=== PATIENT | female | born 1955 | race Caucasian/White ===

== ENCOUNTER → 2019-02-27 | Outpatient (REF) | payer MEDICAID ==
[2019-02-27 19:09] LABS: HEMATOCRIT 38.4 % (36.0-47.0); HEMOGLOBIN 12.5 g/dl (12.0-15.5); MEAN CORPUSCULAR HEMOGLOBIN 32.7 pg (27.0-33.0); MEAN CORPUSCULAR HGB CONC 32.6 g/dl (32.0-36.5); MEAN CORPUSCULAR VOLUME 100.5 fl (80.0-96.0); RED BLOOD COUNT 3.82 10^6/uL (4.00-5.40); WHITE BLOOD COUNT 4.6 10^3/uL (4.0-10.0)
[2019-02-27 19:21] LABS: ALBUMIN 3.4 GM/DL (3.2-5.2); ALT/SGPT 18 U/L (12-78); BILIRUBIN,TOTAL 0.7 MG/DL (0.2-1.0); BLOOD UREA NITROGEN 20 MG/DL (7-18); CALCIUM LEVEL 9.1 MG/DL (8.8-10.2); CARBON DIOXIDE LEVEL 23 MEQ/L (21-32); CHLORIDE LEVEL 112 MEQ/L (98-107); CREATININE FOR GFR 0.71 MG/DL (0.55-1.30); FREE T4 1.19 NG/DL (0.76-1.46); GLOMERULAR FILTRATION RATE > 60.0 (>45); GLUCOSE, FASTING 78 MG/DL (70-100); POTASSIUM SERUM 3.9 MEQ/L (3.5-5.1); SODIUM LEVEL 142 MEQ/L (136-145); TOTAL PROTEIN 6.6 GM/DL (6.4-8.2)
[2019-02-27 19:48] LABS: PLATELET COUNT, AUTOMATED 77 10^3/uL (150-450)
== END ==
LOC: M SFHCPLAZ 13:59
PROVIDERS: ATTEND Nurse Practitioner Family
DX: E03.9 Hypothyroidism, unspecified (principal); I50.9 Heart failure, unspecified; K29.51 Unspecified chronic gastritis with bleeding

== ENCOUNTER → 2019-03-07 | Outpatient (REF) | payer MEDICAID ==
[2019-03-07 16:00] LABS: HEMATOCRIT 36.2 % (36.0-47.0)
== END ==
LOC: M SFHCPLAZ 13:40
PROVIDERS: ATTEND Family Medicine
DX: D75.89 Other specified diseases of blood and blood-forming organs (principal)

== ENCOUNTER → 2019-04-05 | Outpatient (REF) | payer OTHER ==
[2019-04-05 18:21] LABS: APPEARANCE, URINE HAZY (CLEAR); BACTERIA, URINE AUTO NEGATIVE (NEGATIVE); BILIRUBIN, URINE AUTO NEGATIVE (NEGATIVE); BLOOD, URINE BLOOD NEGATIVE (NEGATIVE); COLOR, URINE YELLOW (YELLOW); GLUCOSE, URINE (UA) AUTO NEGATIVE (NEGATIVE); KETONE, URINE AUTO NEGATIVE (NEGATIVE); LEUKOCYTE ESTERASE, URINE AUTO 2+ (NEGATIVE); MUCUS, URINE SMALL (NEGATIVE); NITRITE, URINE AUTO NEGATIVE (NEGATIVE); PROTEIN, URINE AUTO NEGATIVE (NEGATIVE); RBC, URINE AUTO 1 /HPF (0-3); SPECIFIC GRAVITY URINE AUTO 1.019 (1.002-1.035); SQUAMOUS EPITHELIAL CELL UR AU 1 /HPF (0-6); UROBILINOGEN, URINE AUTO 0.2 mg/dL (0.0-2.0); WBC, URINE AUTO 12 /HPF (0-3)
== END ==
LOC: M SFHCPLAZ 14:26
PROVIDERS: ATTEND Nurse Practitioner Family
DX: N39.46 Mixed incontinence (principal)

== ENCOUNTER → 2019-07-18 | Outpatient (REF) | payer OTHER ==
[2019-07-18 18:42] LABS: ALBUMIN 3.1 GM/DL (3.2-5.2); ALT/SGPT 17 U/L (12-78); BILIRUBIN,TOTAL 0.5 MG/DL (0.2-1.0); BLOOD UREA NITROGEN 15 MG/DL (7-18); CALCIUM LEVEL 9.1 MG/DL (8.8-10.2); CARBON DIOXIDE LEVEL 25 MEQ/L (21-32); CHLORIDE LEVEL 114 MEQ/L (98-107); CREATININE FOR GFR 0.75 MG/DL (0.55-1.30); GLOMERULAR FILTRATION RATE > 60.0 (>45); GLUCOSE, FASTING 96 MG/DL (70-100); POTASSIUM SERUM 3.9 MEQ/L (3.5-5.1); SODIUM LEVEL 145 MEQ/L (136-145); TOTAL PROTEIN 6.2 GM/DL (6.4-8.2)
[2019-07-18 18:54] LABS: FOLATE 9.3 NG/ML; VITAMIN B12 LEVEL 246 PG/ML
== END ==
LOC: M SFHCPLAZ 16:09
PROVIDERS: ATTEND Nurse Practitioner Family
DX: D75.89 Other specified diseases of blood and blood-forming organs (principal); I50.9 Heart failure, unspecified; E03.9 Hypothyroidism, unspecified

== ENCOUNTER → 2019-08-01 | Outpatient (CLI) | payer OTHER ==
[~2019-08-01] MED LIST: CALCTAB89 PO; CVS400CA PO; CYAN100049 PO; CYCL10TA PO; GABA800T4 PO; LEVO88TA3 PO; PANT40TA3 PO; POTA20TA6 PO; SPIR-10 PO; TORS20TA2 PO; TRAZ1TAB14 PO; VENL75CA47 PO
[2019-08-01 14:57] LABS: MAGNESIUM LEVEL 2.1 MG/DL (1.8-2.4)
== END ==
LOC: M LAB 13:47
PROVIDERS: ATTEND Internal Medicine Cardiovascular Disease
DX: I50.9 Heart failure, unspecified (principal)

== ENCOUNTER → 2019-08-01 | Outpatient (CLI) | payer OTHER ==
[2019-08-01 14:33] LABS: HEMATOCRIT 32.9 % (36.0-47.0); HEMOGLOBIN 9.2 g/dl (12.0-15.5); MEAN CORPUSCULAR HEMOGLOBIN 25.3 pg (27.0-33.0); MEAN CORPUSCULAR VOLUME 90.4 fl (80.0-96.0); RED BLOOD COUNT 3.64 10^6/uL (4.00-5.40); WHITE BLOOD COUNT 3.4 10^3/uL (4.0-10.0)
[2019-08-01 14:35] LABS: PLATELET COUNT, AUTOMATED 75 10^3/uL (150-450)
== END ==
LOC: M LAB 13:43
PROVIDERS: ATTEND Nurse Practitioner Family
DX: I50.9 Heart failure, unspecified (principal); E03.9 Hypothyroidism, unspecified; D75.89 Other specified diseases of blood and blood-forming organs

== ENCOUNTER 2019-08-03 16:33 | Emergency (ER) | payer OTHER ==
[~2019-08-03] VITALS: Ht 162.6 cm; Wt 147.7 kg
[2019-08-03] MEDS ORDERED: GABA800T4 PO (16:55)
[2019-08-03] MEDS ORDERED: PANT40TA3 PO (16:55)
[2019-08-03] MEDS ORDERED: CYCL10TA PO (16:55)
[2019-08-03] MEDS ORDERED: TORS20TA2 PO (16:55)
[2019-08-03] MEDS ORDERED: CVS400CA PO (16:55)
[2019-08-03] MEDS ORDERED: LEVO88TA3 PO (16:55)
[2019-08-03] MEDS ORDERED: VENL75CA47 PO (16:55)
[2019-08-03] MEDS ORDERED: POTA20TA6 PO (16:55)
[2019-08-03] MEDS ORDERED: CYAN100049 PO (16:55)
[2019-08-03] MEDS ORDERED: SPIR-10 PO (16:55)
[2019-08-03] MEDS ORDERED: TRAZ1TAB14 PO (16:55)
[2019-08-03] MEDS ORDERED: CALCTAB89 PO (16:55)
[2019-08-03 17:27] LABS: EOS # 0.1 10^3/uL (0.0-0.5); EOS % 2.2 % (0.0-3.0); HEMATOCRIT 31.1 % (36.0-47.0); HEMOGLOBIN 8.6 g/dl (12.0-15.5); LYMPH # 0.5 10^3/uL (1.5-5.0); LYMPH % 20.5 % (24.0-44.0); MEAN CORPUSCULAR HEMOGLOBIN 24.9 pg (27.0-33.0); MEAN CORPUSCULAR HGB CONC 27.7 g/dl (32.0-36.5); MEAN CORPUSCULAR VOLUME 89.9 fl (80.0-96.0); MONO # 0.2 10^3/uL (0.0-0.8); MONO % 7.9 % (0.0-5.0); NEUTROPHILS # 1.6 10^3/uL (1.5-8.5); NEUTROPHILS % 69.4 % (36.0-66.0); RED BLOOD COUNT 3.46 10^6/uL (4.00-5.40); WHITE BLOOD COUNT 2.3 10^3/uL (4.0-10.0)
[2019-08-03 17:45] LABS: ALBUMIN 3.2 GM/DL (3.2-5.2); ALT/SGPT 19 U/L (12-78); BILIRUBIN,TOTAL 0.6 MG/DL (0.2-1.0); BLOOD UREA NITROGEN 19 MG/DL (7-18); CALCIUM LEVEL 9.5 MG/DL (8.8-10.2); CARBON DIOXIDE LEVEL 27 MEQ/L (21-32); CHLORIDE LEVEL 111 MEQ/L (98-107); CREATININE FOR GFR 0.79 MG/DL (0.55-1.30); GLOMERULAR FILTRATION RATE > 60.0 (>45); GLUCOSE, FASTING 90 MG/DL (70-100); POTASSIUM SERUM 4.3 MEQ/L (3.5-5.1); SODIUM LEVEL 142 MEQ/L (136-145); TOTAL PROTEIN 6.3 GM/DL (6.4-8.2)
[2019-08-03 17:48] LABS: PLATELET COUNT, AUTOMATED 53 10^3/uL (150-450)
[2019-08-03 18:52] LABS: IRON (FE) 48 UG/DL (50-170); PERCENT SATURATION 12.1 % (13.2-45.0); TOTAL IRON BINDING CAPACITY 396 UG/DL (250-450)
[2019-08-03 19:48] VITALS: BP 116/60
== END 2019-08-03 21:41 | disposition home or self-care (01) ==
LOC: M ED 16:33 → EDBD 16:33 → M ED 21:41
DX: D50.9 Iron deficiency anemia, unspecified (principal); M62.81 Muscle weakness (generalized); Z79.899 Other long term (current) drug therapy; Z86.79 Personal history of other diseases of the circulatory system; Z88.1 Allergy status to other antibiotic agents; Z88.5 Allergy status to narcotic agent; Z88.6 Allergy status to analgesic agent; Z88.8 Allergy status to other drugs, medicaments and biological substances

== ENCOUNTER → 2019-08-17 | Outpatient (CLI) | payer OTHER ==
--- NOTE | 2019-08-17 09:12 | REP ---
RIGHT UPPER QUADRANT ULTRASOUND: Real-time sonographic evaluation of the right upper quadrant performed. Gallbladder has been surgically removed. There is no intrahepatic or extrahepatic biliary dilatation. Common bile duct measures 3 mm. The liver demonstrates heterogeneous echotexture. No gross liver mass is seen. Mean portal vein measures 15 mm, which is slightly prominent and may indicate portal hypertension. No gross pancreatic mass is seen, pancreas is not optimally seen due to overlying bowel gas. Right kidney demonstrates no hydronephrosis with normal size 10.4 cm in length. No ascites is seen. IMPRESSION: Status post cholecystectomy without biliary dilatation. Heterogenous echotexture of the liver with no gross mass. Mildly dilated main portal vein 15 mm may indicate portal hypertension. No ascites. Electronically Signed by Alejandro Coleman MD 08/17/2019 03:50 P
== END ==
LOC: M RAD 07:15
PROVIDERS: ATTEND Internal Medicine Gastroenterology
DX: K31.811 Angiodysplasia of stomach and duodenum with bleeding (principal); Z90.49 Acquired absence of other specified parts of digestive tract

== ENCOUNTER → 2019-08-23 | Outpatient (CLI) | payer OTHER ==
[~2019-08-23] MED LIST changes: +DOXY100C PO; +EQL50TAB2 PO; +GABA-845 PO; +IPRA0.00 INH; +LOPE1CAP5 PO; +PRED20TA PO; +SIME125C4 PO; +VENL75CA2 PO; +VENL75TA2 PO
--- NOTE | 2019-08-23 15:31 | REPPI ---
Chest x-ray: Two views. History: Upper respiratory tract infection. Cough. Congestion. No comparison study. Findings: There is an infiltrate anteriorly in the retrosternal facet space on lateral view. Increased markings are seen to the right perihilar region on the frontal view consistent with right middle lobe or upper lobe pneumonia. Pleural angles are sharp. The heart is not enlarged. Aorta is tortuous. Impression: Increased density on the right anteriorly consistent with the anterior segment upper lobe or right middle lobe pneumonia. Electronically Signed by Prosper Mo MD 08/23/2019 03:23 P
== END ==
LOC: M PLAIMG 14:40
PROVIDERS: ATTEND Nurse Practitioner Family
DX: R91.8 Other nonspecific abnormal finding of lung field (principal); J06.9 Acute upper respiratory infection, unspecified

== ENCOUNTER 2019-08-25 15:51 | Inpatient (IN) | payer OTHER ==
[~2019-08-25] VITALS: Ht 162.6 cm; Wt 149.2 kg
[~2019-08-25 15:51] MED LIST changes: -DOXY100C PO; -IPRA0.00 INH; -LOPE1CAP5 PO; -PRED20TA PO; -SIME125C4 PO; -VENL75CA2 PO
[2019-08-25] MEDS ORDERED: IPRA0.00 INH (16:16)
[2019-08-25] MEDS ORDERED: DOXY100C PO (16:16)
[2019-08-25] MEDS ORDERED: PRED20TA PO (16:16)
[2019-08-25] MEDS ORDERED: IPRATROPIUM 0.5MG/ALBUTEROL 2.5MG INH SOL UD 3ML (DUONEB)(J7620) As Ordered ONE (17:07)
[2019-08-25] MEDS ORDERED: ALBUTEROL SULFATE 2.5 MG/0.5 ML INH NEB SOLN As Ordered ONE (17:08)
[2019-08-25] MEDS ORDERED: IPRATROPIUM 0.5MG/ALBUTEROL 2.5MG INH SOL UD 3ML (DUONEB)(J7620) NEB ONE (17:15)
[2019-08-25] MEDS ORDERED: ALBUTEROL SULFATE 2.5 MG/0.5 ML INH NEB SOLN INH ONE (17:15)
[2019-08-25] MEDS ORDERED: dexameTHASONE 20 MG/5 ML VIAL (J1100) IV ONE (17:15)
[2019-08-25] MEDS ORDERED: ACETAMINOPHEN TAB 650MG DOSE (2X325MG) PO ONE (17:30)
[2019-08-25 17:42] LABS: BASO % 0.3 % (0.0-1.0); EOS % 0.5 % (0.0-3.0); HEMATOCRIT 25.1 % (36.0-47.0); HEMOGLOBIN 7.1 g/dl (12.0-15.5); LYMPH # 0.7 10^3/uL (1.5-5.0); LYMPH % 18.7 % (24.0-44.0); MEAN CORPUSCULAR HEMOGLOBIN 24.1 pg (27.0-33.0); MEAN CORPUSCULAR HGB CONC 28.3 g/dl (32.0-36.5); MEAN CORPUSCULAR VOLUME 85.4 fl (80.0-96.0); MONO # 0.4 10^3/uL (0.0-0.8); MONO % 9.3 % (0.0-5.0); NEUTROPHILS # 2.7 10^3/uL (1.5-8.5); NEUTROPHILS % 70.9 % (36.0-66.0); RED BLOOD COUNT 2.94 10^6/uL (4.00-5.40); WHITE BLOOD COUNT 3.8 10^3/uL (4.0-10.0)
[2019-08-25 17:43] LABS: PLATELET COUNT, AUTOMATED 49 10^3/uL (150-450)
[2019-08-25 18:02] LABS: BLOOD UREA NITROGEN 17 MG/DL (7-18); CALCIUM LEVEL 8.2 MG/DL (8.8-10.2); CARBON DIOXIDE LEVEL 27 MEQ/L (21-32); CHLORIDE LEVEL 107 MEQ/L (98-107); CK-MB VALUE MASS 1.2 NG/ML (<3.6); CPK CREATINE PHOSPHOKINASE 68 U/L (26-192); CREATININE FOR GFR 0.76 MG/DL (0.55-1.30); GLOMERULAR FILTRATION RATE > 60.0 (>45); GLUCOSE, FASTING 80 MG/DL (70-100); INFLUENZA A AMPLIFICATION NEGATIVE (NEGATIVE); INFLUENZA B AMPLIFICATION NEGATIVE (NEGATIVE); MB/CK RELATIVE INDEX 1.76 (< OR =4); POTASSIUM SERUM 3.2 MEQ/L (3.5-5.1); SODIUM LEVEL 142 MEQ/L (136-145)
[2019-08-25 18:03] LABS: TROPONIN I < 0.02 NG/ML (< 0.10)
[2019-08-25] MEDS ORDERED: cefTRIAXone SOD 2 GM in D5W MINI-BAG PLUS 50 ML IV ONE (19:30)
[2019-08-25] MEDS ORDERED: AZITHROMYCIN INJ 500 MG, VIAL MATE ADAPTER 1 EACH in D5W 250 ML IV ONE (19:30)
--- NOTE | 2019-08-25 19:36 | REP ---
Portable chest x-ray: Single view. History: Pneumonia. Comparison chest x-ray: 08/23/2019. Findings: Today's view is exposed at a somewhat lesser level of inspiration. There are increased markings along the right heart border in the right base medially consistent with the infiltrate noted previously. This is a little more pronounced. There are some increased markings in the left perihilar region as well. Impression: Right and left perihilar infiltrates. Electronically Signed by Prosper Mo MD 08/25/2019 07:28 P
[2019-08-25] MEDS ORDERED: VENL75CA2 PO (20:12)
[2019-08-25] MEDS ORDERED: SIME125C4 PO (20:12)
[2019-08-25] MEDS ORDERED: LOPE1CAP5 PO (20:12)
[2019-08-25] MEDS ORDERED: POTASSIUM CHLORIDE 10 MEQ SR TABLET PO ONE (20:15)
[2019-08-25] MEDS ORDERED: CALCIUM CARBONATE 500 MG CHEW U/D PO PRN (20:30)
[2019-08-25] MEDS ORDERED: ALBUTEROL SULFATE 2.5 MG/0.5 ML INH NEB SOLN NEB PRN (20:30)
[2019-08-25] MEDS ORDERED: LOPERAMIDE 2 MG CAPLET PO PRN (20:30)
[2019-08-25 20:59] LABS: FERRITIN 11 NG/ML (8-252); IRON (FE) 26 UG/DL (50-170); MAGNESIUM LEVEL 1.5 MG/DL (1.8-2.4); PERCENT SATURATION 7.8 % (13.2-45.0); TOTAL IRON BINDING CAPACITY 332 UG/DL (250-450)
[2019-08-25 22:20] VITALS: BP 171/89
--- NOTE | 2019-08-25 22:56 | HPEPDOC ---
[facility] Medical History & Physical Date of Admission Aug 25, 2019 Date of Service: Aug 25, 2019 Primary Care Physician: DEON QUIROZ NP Attending Physician: RACHELE KHAN MD History and Physical TIME OF SERVICE: 7:45 PM CHIEF COMPLAINT: fever HISTORY OF PRESENT ILLNESS: This is a 64-year-old female who presents today with the chief complaint of having a fever. On she presented to her PCP with complaints of cough, was given a nebulizer treatment and started on antibiotics; later on she received a phone call from her PCP informing her that her chest x-ray confirmed she had pneumonia. Despite taking the antibiotics, she feels like her cough is worse; specifically she is producing more yellow sputum. She also has a headache, muscle aches, nausea, chills, shortness of breath, and right upper chest and left lower chest 7/10 in severity, nonradiating pain. REVIEW OF SYSTEMS: 12 point review of systems negative except as listed in HPI PAST MEDICAL/ SURGICAL HISTORY: Alpha-1 antitrypsin deficiency LISA Unspecified type of CHF ? Pancytopenia Neuropathy History of recurrent GI bleed attributed to rectal fissures, prepyloric erosion, hiatial hernia, antral gastritis, antral ulcers, distal esophagitis, AVMs, and gastric antral vascular ectasia (GAVE) GERD Irritable bowel syndrome Optic migraines Dyslipidemia Chronic Depression History of vitamin B12 deficiency History of seizures started in 1975, resolved in 1982 History of DVT 2, status post IVC filter placement in 1999 Remote history of CVA with transient left-sided weakness Morbid obesity Per chart review, history of acquired hypothyroidism Unsteady gait at baseline she walks with a walker Status post tonsillectomy with adenoidectomy Status post appendectomy Status post 2 Status post tubal ligation Status post sport for a laparoscopy due to pelvic pain and heavy bleeding Status post partial hysterectomy. Status post left ovarian cystectomy 2 Status post cholecystectomy Status post hemorrhoidectomy History of left lower abdominal incarcerated hernia repair Status post colostomy replacement and reversal 2 years later History of rectal fissurectomy with double skin graft History of ventral mid and upper abdominal hernias, status post mesh placement SOCIAL HISTORY: She does not smoke FAMILY HISTORY: Father had breast cancer Mother had Ariana Gehrig's disease. One of her brothers had esophageal and stomach cancer ALLERGIES: Please see below. HOME MEDICATIONS: Please see below. PHYSICAL EXAMINATION: VITAL SIGNS: Please see below. GEN: well nourished / well developed/ NAD INTEGUMENT: She does not have facial plethora HEENT: normocephalic / atraumatic / lips are not cyanotic/he does not have pursed lip breathing /her neck is short/ NC in place / mucus membranes moist and pink / sclera anicteric CVS: She has a systolic murmur/ radial and dorsalis pedis pulses are difficult to palpate because of her body habitus, but her extremities are warm and well-perfused LUNGS: She does not have nasal flaring /is able to speak full sentences without stopping to take a breath / coughing occasionally /he is not using accessory muscles /there is slightly decreased respiratory expansion possibly because of her body habitus/she has expiratory rhonchi along with inspiratory crackles at the lung bases/ ABDOMEN: bowel sounds are present / the abdomen is tympanic on percussion, soft & not tender with palpation MSK/EXTREMITIES:He does not have finger nail clubbing or nicotine stains on her fingertips or nails/range of motion intact in all 4 extremities NEURO: CN 2-12 are grossly intact / speech is not dysarthric PSYCH: alert and oriented to person place and time/ able to understand and follow all commands LABORATORY DATA: See below. IMAGING: Chest x-ray " There are increased markings along the right heart border in the right base medially consistent with the infiltrate noted previously. This is a little more pronounced. There are some increased markings in the left perihilar region as well." MICROBIOLOGY: Please see below. ASSESSMENT: Ms. Saucedo is a 64-year-old with a past medical history of alpha-1 antitrypsin deficiency, LISA, unspecified type of CHF, pancytopenia, neuropathy, multiple episodes of GI bleeds, optic migraines, dyslipidemia, depression, hx of CVA, and hx of DVTs who will be admitted for management of community-acquired pneumonia and acute anemia. PLAN: 1. Hypoxemic respiratory failure 2/2 Community-acquired Pneumonia She has a cough, fever and shortness of breath. The left and right-sided chest pain or likely due to pneumonia Her O2 sats dropped as low as 87% on room air, therefore, she was started on 2 L by nasal cannula The chest x-ray shows an old infiltrate at the right and a new infiltrate at the left lung base Plan: admit to PCU/ continuous pulse ox & supplemental O2/ follow-up ABG to check for hypercarbia & calculate the PORT/PSI score / f/u sputum & blood cx, legionella and strep pneumo /continue ceftriaxone and azithromycin/ IVF / tessalon pearls / Acetaminophen PRN for fever / influenza vaccine 2. Acute COPD/alpha-1 antitrypsin deficiency Likely due to pneumonia Influenza A and B are negative Plan: supplemental O2 / continuous pulse oximetry / aspiration precautions / f/u ABG &sputum cx / Dunebs Q6H, Albuterol Q1HP, Solu-Medrol, Prednisone + PPI, antibiotics , Tessalon Pearls / refer to Nuclear Scientist for repeat PFTs and Pulmonary Rehab when ready for d/c 3. Acute anemia She has a history of pancytopenia. She also has a history of recurrent GI bleed attributed to rectal fissures, prepyloric erosion, hiatal hernia, antral gastritis, antral ulcers, distal esophagitis, AVMs, and gastric antral vascular ectasia (GAVE) Her baseline hemoglobin is 8.6 , today it is 7.1 She declined a rectal exam in the ER PRBCs have ready been ordered by Dr. Vasquez Plan: f/u serial hemoglobin, reticulocyte #, iron panel w ferritin, B12, RBC folate, thiamine, stool occult / clear liquid diet pending GI consult for c- scope 4. SIRS Unlikely sepsis due to pneumonia because the only SIRS criteria she has is a temp >101. Even though her WBC count is <4, she has chronic leukopenia/pancytopenia and the the lactic acid is < 1 Plan: Monitor vitals/ f/u blood cultures / Acetaminophen PRN for fever 5. Hypokalemia Plan:replete potassium/ f/u magnesium 4. Unspecified type of CHF? Suspect that she may have diastolic dysfunction. Echocardiogram from 1998 showed hyperdynamic systolic function and elevated pulmonary pressure. Her H2PEF Score = 5 = intermediate probability: Her most recent BMP in July was 49 and she does have lung disease. Therefore, she can follow up with a electric sign assembler to discuss right heart cath to determine if she definitively has heart failure; this can be done on an outpatient basis. Plan: Continue with's spironolactone and torsemide 5. Neuropathy. Plan: Continue gabapentin 6. Hypothyroidism. Plan: Continue levothyroxine 7. Depression. Plan: Continue trazodone and venlafaxine 8. Morbid obesity Her BMI is 55.9. This complicates care Plan: Follow-up A1c/ can f/u w PCP for STOP BANG questionnaire & tow motor driver consult DVT prophylaxis with SCDs because of acute anemia. Disposition home after more than 2 midnight stay Vital Signs Vital Signs Date Time Temp Pulse Resp B/P (MAP) Pulse Ox O2 Delivery O2 Flow Rate FiO2 08/25/19 22:07 96.8 82 20 123/75 (91) 94 Nasal Cannula 2.0 Laboratory Data Labs 24H Laboratory Tests 2 08/25/19 17:13: Immature Granulocyte % (Auto) 0.3, Neutrophils (%) (Auto) 70.9H, Lymphocytes (%) (Auto) 18.7L, Monocytes (%) (Auto) 9.3H, Eosinophils (%) (Auto) 0.5, Basophils (%) (Auto) 0.3, Neutrophils # (Auto) 2.7, Lymphocytes # (Auto) 0.7L, Monocytes # (Auto) 0.4, Eosinophils # (Auto) 0.0, Basophils # (Auto) 0.0, Nucleated Red Blood Cells % (auto) 0.0, Immature Platelet Fraction 5.1, Anion Gap 8, Glomerular Filtration Rate > 60.0, Calcium Level 8.2L, Magnesium Level 1.5L, Iron Level 26L, Total Iron Binding Capacity 332, Transferrin % Saturation 7.8L, Ferritin 11, Total Creatine Kinase 68, Creatine Kinase MB 1.2, Creatine Kinase MB Relative Index 1.76, Troponin I < 0.02, Influenza Type A (RT-PCR) NEGATIVE, Influenza Type B (RT-PCR) NEGATIVE 08/25/19 17:15: 08/25/19 20:28: Lactic Acid Level 1.0 CBC/BMP Laboratory Tests 08/25/19 17:13 Microbiology Microbiology 08/25/19 Gram Stain, Received Pending 08/25/19 Sputum Culture, Received Pending 08/25/19 Blood Culture, Received Pending 08/25/19 Blood Culture, Received Pending Home Medications Scheduled Calcium Carbonate (Calcium) 600 Mg Tablet, 600 MG PO QHS Cholecalciferol (Vitamin D3) (Vitamin D3) 400 Unit Capsule, 400 UNIT PO QHS Cyanocobalamin (Vitamin B-12) (Vitamin B-12) 1,000 Mcg Tablet, 1,000 MCG PO QHS Doxycycline Hyclate (Doxycycline Hyclate) 100 Mg Capsule, 100 MG PO BID 10 DAYS STARTED ON 08/23 Gabapentin (Gabapentin) 800 Mg Tablet, 800 MG PO BID Gabapentin (Gabapentin) 400 Mg Capsule, 400 MG PO DAILY AFTERNOON Levothyroxine Sodium (Levothyroxine Sodium) 88 Mcg Tablet, 88 MCG PO DAILY Pantoprazole Sodium (Pantoprazole Sodium) 40 Mg Tablet.dr, 40 MG PO BID Potassium Chloride (Potassium Chloride) 20 Meq Tab.er.prt, 20 MEQ PO QHS Prednisone (Prednisone) 20 Mg Tablet, 20 MG PO BID 5 DAYS STARTED 08/23 Spironolactone (Spironolactone) 25 Mg Tablet, 25 MG PO QHS Torsemide (Torsemide) 20 Mg Tablet, 20 MG PO BID 0900, 1500 Trazodone HCl (Trazodone HCl) 150 Mg Tablet, 150 MG PO QHS Venlafaxine HCl (Venlafaxine HCl ER) 75 Mg Cap.er.24h, 75 MG PO DAILY Venlafaxine HCl (Venlafaxine HCl ER) 75 Mg Cap.er.24h, 150 MG PO QHS Vitamin B Complex (Vitamin B Complex) 1 Each Tablet, 1 TAB PO DAILY Scheduled PRN Cyclobenzaprine HCl (Cyclobenzaprine HCl) 10 Mg Tablet, 10 MG PO TID PRN for MUSCLE SPASMS Ipratropium/Albuterol Sulfate (Iprat-Albut 0.5-3(2.5) mg/3 ml) 3 Ml Ampul.neb, 1 INH INH Q6H PRN for SHORTNESS OF BREATH Loperamide HCl (Loperamide) 2 Mg Capsule, 2 MG PO Q6H PRN for DIARRHEA Simethicone (Gas-X) 125 Mg Capsule, 125 MG PO ACHS PRN for GAS PAIN Allergies Coded Allergies: hydromorphone (Verified Allergy, Mild, itching, 08/24/19) codeine (Verified Adverse Reaction, Intermediate, CHESP PAIN, 08/03/19) ibuprofen (Verified Adverse Reaction, Intermediate, JOINT/ MUSCLE PAIN, 08/03/19) pregabalin (Verified Adverse Reaction, Intermediate, chest pain, 08/03/19) amoxicillin (Verified Adverse Reaction, Mild, vomiting and diarrhea, 08/03/19) clavulanic acid (Verified Adverse Reaction, Mild, vomiting and diarrhea, 08/03/19) erythromycin base (Verified Adverse Reaction, Mild, vomting diarrhea, 08/03/19) A-FIB/CHADSVASC A-FIB History Current/History of A-Fib/PAF?: No Current PO Anticoag Therapy: No RACHELE KHAN MD Aug 25, 2019 22:56
[2019-08-25 23:00] VITALS: BP 124/68
[2019-08-25 23:00] LABS: ABG BASE EXCESS -1.6 (-2.0-2.0); ABG HCO3 21.9 MEQ/L (22.0-26.0); ABG O2 SATURATION 95.7 % (95.0-99.0); ABG PARTIAL PRESSURE CO2 31.9 mmHg (35.0-45.0); ABG PARTIAL PRESSURE O2 80.6 mmHg (75.0-100.0); ABG STANDARD HCO3 23.1 MEQ/L (22.0-26.0); ABG TOTAL CO2 22.9 MEQ/L (23.0-31.0); ABG pH (ARTERIAL) 7.455 UNITS (7.350-7.450)
[2019-08-25] MEDS: SPIRONOLACTONE 25 MG TAB PO SCH (23:00)
[2019-08-25] MEDS: methylPREDNISolone INJ 125 MG/2 ML VIAL (J2930) IV SCH (23:00)
[2019-08-25] MEDS: traZODone 50 MG TAB PO SCH (23:00)
[2019-08-25] MEDS: VITAMIN D 1,000 INTERNATIONAL UNITS TABLET PO SCH (23:01)
[2019-08-25] MEDS: GABAPENTIN 400 MG CAP PO SCH (23:02)
[2019-08-25] MEDS: CYANOCOBALAMIN 500 MCG TAB PO SCH (23:02)
[2019-08-25] MEDS: VENLAFAXINE **XR** 75MG CAPSULE PO SCH (23:02)
[2019-08-25] MEDS: NS 1,000 ML IV SCH (23:11)
[2019-08-25] MEDS: BENZONATATE 100 MG CAP PO SCH (23:12)
[2019-08-25 23:59] VITALS: BP 136/78
[2019-08-26] VITALS (29 sets, daily range): BP systolic 128–182; BP diastolic 64–86; O2SAT 84–98
[2019-08-26] MEDS: IPRATROPIUM 0.5MG/ALBUTEROL 2.5MG INH SOL UD 3ML (DUONEB)(J7620) NEB SCH ×4 (02:18→20:22)
[2019-08-26] MEDS: LEVOTHYROXINE 88MCG TABLET (0.088 MG) PO SCH (05:45)
[2019-08-26] MEDS: methylPREDNISolone INJ 125 MG/2 ML VIAL (J2930) IV SCH ×3 (05:45→21:04)
[2019-08-26] MEDS: BENZONATATE 100 MG CAP PO SCH ×3 (05:45→21:05)
[2019-08-26 06:25] LABS: HEMOGLOBIN 8.6 g/dl (12.0-15.5)
[2019-08-26 06:48] LABS: HEMATOCRIT 30.4 % (36.0-47.0); MEAN CORPUSCULAR HEMOGLOBIN 24.5 pg (27.0-33.0); MEAN CORPUSCULAR HGB CONC 27.6 g/dl (32.0-36.5); MEAN CORPUSCULAR VOLUME 88.6 fl (80.0-96.0); RED BLOOD COUNT 3.43 10^6/uL (4.00-5.40)
[2019-08-26 06:49] LABS: PLATELET COUNT, AUTOMATED 43 10^3/uL (150-450); WHITE BLOOD COUNT 1.8 10^3/uL (4.0-10.0)
[2019-08-26 06:51] LABS: BLOOD UREA NITROGEN 16 MG/DL (7-18); CALCIUM LEVEL 8.5 MG/DL (8.8-10.2); CARBON DIOXIDE LEVEL 28 MEQ/L (21-32); CHLORIDE LEVEL 111 MEQ/L (98-107); CREATININE FOR GFR 0.72 MG/DL (0.55-1.30); GLOMERULAR FILTRATION RATE > 60.0 (>45); GLUCOSE, FASTING 135 MG/DL (70-100); POTASSIUM SERUM 4.2 MEQ/L (3.5-5.1); SODIUM LEVEL 144 MEQ/L (136-145)
[2019-08-26] MEDS: VITAMIN B COMPLEX/VIT C CAP PO SCH ×2 (08:56→09:06)
[2019-08-26] MEDS: GABAPENTIN 400 MG CAP PO SCH ×3 (08:57→21:05)
[2019-08-26] MEDS: PANTOPRAZOLE 40MG TAB (PROTONIX) PO SCH (08:57)
[2019-08-26] MEDS: VENLAFAXINE **XR** 75MG CAPSULE PO SCH ×2 (08:57→21:05)
[2019-08-26] MEDS: TORSEMIDE 20 MG TAB PO SCH ×2 (08:57→13:52)
[2019-08-26] MEDS ORDERED: predniSONE 20 MG TAB PO SCH (09:00)
[2019-08-26] MEDS ORDERED: FLUBLOK(EGG FREE)(QUAD)INFLUENZA VACC 0.5ML SYRINGE (90682)18YRS&OLDER IM ONE (09:00)
[2019-08-26] MEDS: CYCLOBENZAPRINE 10 MG TAB PO PRN ×2 (09:07→21:30)
[2019-08-26 13:28] LABS: HEMATOCRIT 29.3 % (36.0-47.0); HEMOGLOBIN 8.3 g/dl (12.0-15.5); MEAN CORPUSCULAR HEMOGLOBIN 24.8 pg (27.0-33.0); MEAN CORPUSCULAR HGB CONC 28.3 g/dl (32.0-36.5); MEAN CORPUSCULAR VOLUME 87.5 fl (80.0-96.0); PLATELET COUNT, AUTOMATED 43 10^3/uL (150-450); RED BLOOD COUNT 3.35 10^6/uL (4.00-5.40); WHITE BLOOD COUNT 1.9 10^3/uL (4.0-10.0)
[2019-08-26 13:37] LABS: INR 1.24; PROTHROMBIN TIME 15.3 SECONDS (11.8-14.0)
[2019-08-26] MEDS ORDERED: CETACAINE SPRAY 5GM As Ordered ONE (16:21)
[2019-08-26] MEDS ORDERED: SUCCINYLCHOLINE 100 MG/5 ML SYRINGE (J0330) As Ordered ONE (16:26)
[2019-08-26] MEDS ORDERED: LIDOCAINE 2% INJ 100 MG/5 ML SDV (FOR ANES.) As Ordered ONE (16:26)
[2019-08-26] MEDS ORDERED: PROPOFOL 200 MG/20 ML VIAL As Ordered ONE (16:26)
[2019-08-26] MEDS ORDERED: fentaNYL 100 MCG/2 ML INJECTION (J3010) As Ordered ONE (16:26)
--- NOTE | 2019-08-26 17:05 | ROOR ---
Patient Name: Tina Saucedo Procedure Date: 08/26/2019 4:01 PM Date of : 1955 Age: 64 Gender: Female Note Status: Finalized Procedure: Upper GI endoscopy Indications: Acute post hemorrhagic anemia, Iron deficiency anemia secondary to chronic blood loss Providers: Tavon CHAVEZ MD Referring MD: 2. Inpatient 2. Inpatient Requesting Provider: Medicines: Monitored Anesthesia Care Complications: No immediate complications. Procedure: Pre-Anesthesia Assessment: - The heart rate, respiratory rate, oxygen saturations, blood pressure, adequacy of pulmonary ventilation, and response to care were monitored throughout the procedure. The Endoscope was introduced through the mouth, and advanced to the second part of duodenum. The upper GI endoscopy was accomplished without difficulty. The patient tolerated the procedure well. Findings: The examined esophagus was normal. A few (approximately 7) diminutive angioectasias with stigmata of recent bleeding (adherent hematin) were found in the gastric body and in the gastric antrum. Coagulation for hemostasis using argon beam at 0.8 liters/minute and 35 garcia was successful. The examined duodenum was normal. Impression: - Normal esophagus. - A few recently bleeding angioectasias in the stomach. Treated with argon beam coagulation. - Normal examined duodenum. - No specimens collected. Recommendation: - Advance diet as tolerated. - Use a proton pump inhibitor PO daily. - Use sucralfate tablets 1 gram PO QID for 2 weeks. - Observe patient's clinical course. - Return to referring physician as previously scheduled. - For now, continue with plans for repeat EGD with ablation therapy as scheduled on 09/03/19. Tavon Chavez MD Tavon CHAVEZ MD 08/26/2019 5:04:33 PM Electronically signed by Tavon CHAVEZ MD Number of Addenda: 0 Note Initiated On: 08/26/2019 4:01 PM Estimated Blood Loss: Estimated blood loss: none.
[2019-08-26] MEDS ORDERED: fentaNYL 100 MCG/2 ML INJECTION (J3010) IV PRN (17:30)
[2019-08-26] MEDS ORDERED: ONDANSETRON 4MG/2ML VIAL (J2405) IV PRN (17:30)
--- NOTE | 2019-08-26 19:39 | ECGEPIP ---
[facility] - ED Test Date: 2019-08-25 Pat Name: ZAMZAM SCHMITZ Department: Room: [place] [address] Gender: Female Seamer Panty Hose: adeline : 1955 Requested By: Haven Valdes Order Number: [id number] Reading MD: Haven Valdes Measurements Intervals [place] Rate: 75 P: 70 KS: 178 QRS: 0 QRSD: 120 T: 3 QT: 409 QTc: 457 Interpretive Statements SINUS RHYTHM MODERATE INTRAVENTRICULAR CONDUCTION DELAY LEFTWARD AXIS NONSPECIFIC ST T WAVE CHANGES PROLONGED QTC DELAYED R WAVE PROGRESSION NO PRIOR ECG FOR COMPARISON Electronically Signed on 08-26-2019 19:39:07 EST by Haven Valdes
[2019-08-26] MEDS ORDERED: SUCRALFATE 1 GM TAB PO SCH (21:00)
[2019-08-26] MEDS: SPIRONOLACTONE 25 MG TAB PO SCH (21:04)
[2019-08-26] MEDS: AZITHROMYCIN INJ 500 MG, VIAL MATE ADAPTER 1 EACH in D5W 250 ML IV SCH (21:04)
[2019-08-26] MEDS: cefTRIAXone SOD 1 GM in D5W MINI-BAG PLUS 50 ML IV SCH (21:04)
[2019-08-26] MEDS: traZODone 50 MG TAB PO SCH (21:05)
[2019-08-26] MEDS: VITAMIN D 1,000 INTERNATIONAL UNITS TABLET PO SCH (21:05)
[2019-08-26] MEDS: CYANOCOBALAMIN 500 MCG TAB PO SCH (21:06)
[2019-08-27] VITALS (20 sets, daily range): BP systolic 138–152; BP diastolic 65–87; O2SAT 88–96
[2019-08-27] MEDS: IPRATROPIUM 0.5MG/ALBUTEROL 2.5MG INH SOL UD 3ML (DUONEB)(J7620) NEB SCH ×4 (01:53→19:53)
[2019-08-27] MEDS: methylPREDNISolone INJ 125 MG/2 ML VIAL (J2930) IV SCH ×3 (06:53→21:59)
[2019-08-27] MEDS: BENZONATATE 100 MG CAP PO SCH ×3 (06:54→21:59)
[2019-08-27] MEDS: LEVOTHYROXINE 88MCG TABLET (0.088 MG) PO SCH (06:54)
[2019-08-27] MEDS: GABAPENTIN 400 MG CAP PO SCH ×3 (09:22→20:15)
[2019-08-27] MEDS: VENLAFAXINE **XR** 75MG CAPSULE PO SCH ×2 (09:22→20:15)
[2019-08-27] MEDS: TORSEMIDE 20 MG TAB PO SCH ×2 (09:22→14:08)
[2019-08-27] MEDS: VITAMIN B COMPLEX/VIT C CAP PO SCH (09:22)
[2019-08-27] MEDS: PANTOPRAZOLE 40MG TAB (PROTONIX) PO SCH (09:22)
[2019-08-27] MEDS: SUCRALFATE 1 GM TAB PO SCH ×4 (09:22→20:14)
[2019-08-27] MEDS: CYCLOBENZAPRINE 10 MG TAB PO PRN (09:38)
[2019-08-27] MEDS: NS 1,000 ML IV SCH ×2 (10:07→15:33)
--- NOTE | 2019-08-27 18:12 | IPN ---
DATE: 08/26/2019 Patient says shortness of breath has improved, but still with a productive cough, decreased from yesterday. No chest pain, pressure, tightness, palpitations, lightheadedness. No fever or chills. No nausea, vomiting, diarrhea. Temperature 98.6, pulse 65, respiratory rate 20, blood pressure 128/75, 94% on two liters nasal cannula and 90% on room air. Generally, awake, alert, oriented times three. No use of respiratory accessory muscles. Able to speak in full sentences without conversational dyspnea. Lungs are diminished with crackles at the bases. Heart: S1, S2, sinus rhythm. Abdomen is soft, nontender, nondistended. Positive bowel sounds. Extremities: No cyanosis or clubbing. LABORATORY DATA: White count 1.8, hemoglobin 8.6, hematocrit 30, platelet count 43. Sodium 144, potassium 4.2, chloride 111, bicarbonate 28, BUN 16, creatinine 0.72, glucose of 135. ASSESSMENT AND PLAN: A 64-year-old with a history of alpha-1 antitrypsin, nonalcoholic steatohepatitis (LISA), congestive heart failure, pancytopenia, neuropathy, history of recurrent gastrointestinal (GI) bleed due to gastric antral vascular ectasia (GAVE) gastritis, AVMs, vascular ectasia, reflux, irritable bowel syndrome, seizures, deep vein thrombosis (DVT) times two with inferior vena cava (IVC) filter, morbid obesity, presents with a fever, felt to have community-acquired pneumonia, currently on ceftriaxone and azithromycin. IMPRESSION: 1. Community-acquired pneumonia. On IV ceftriaxone and azithromycin. Serial complete blood count (CBC) checks. Afebrile overnight. 2. Pancytopenia secondary to severe infection with pneumonia. 3. Chronic hypoxic respiratory failure, on supplemental oxygen. 4. Alpha-1 antitrypsin deficiency. Follows with Dr. Tillman as an outpatient status post history of recurrent infections and keep saturations greater than 88-92%. [facility]
[2019-08-27] MEDS: traZODone 50 MG TAB PO SCH (20:14)
[2019-08-27] MEDS: VITAMIN D 1,000 INTERNATIONAL UNITS TABLET PO SCH (20:15)
[2019-08-27] MEDS: CYANOCOBALAMIN 500 MCG TAB PO SCH (20:15)
[2019-08-27] MEDS: AZITHROMYCIN INJ 500 MG, VIAL MATE ADAPTER 1 EACH in D5W 250 ML IV SCH (20:19)
[2019-08-27] MEDS: SPIRONOLACTONE 25 MG TAB PO SCH (21:58)
[2019-08-27] MEDS: cefTRIAXone SOD 1 GM in D5W MINI-BAG PLUS 50 ML IV SCH (21:59)
[2019-08-28] MEDS: IPRATROPIUM 0.5MG/ALBUTEROL 2.5MG INH SOL UD 3ML (DUONEB)(J7620) NEB SCH ×4 (01:03→20:32)
[2019-08-28] MEDS: methylPREDNISolone INJ 125 MG/2 ML VIAL (J2930) IV SCH ×3 (05:26→23:15)
[2019-08-28] MEDS: LEVOTHYROXINE 88MCG TABLET (0.088 MG) PO SCH (05:26)
[2019-08-28] MEDS: BENZONATATE 100 MG CAP PO SCH ×3 (05:26→23:15)
[2019-08-28 06:55] VITALS: BP 154/70
--- NOTE | 2019-08-28 07:42 | IPN ---
DATE OF SERVICE: 08/27/2019 Patient remains afebrile. No complaints of shortness of breath. Still with cough, yellow sputum. No complaints of bright red blood per rectum, melena or black tarry stools. No hematemsis. Shortness of breath is slightly improved. PHYSICAL EXAMINATION: VITALS: Temperature 96.8, pulse 85, respiratory rate 18, blood pressure 152/84, 96% on 3 liters nasal cannula. Generally, awake, alert and oriented. No pallor, icterus, jaundice. No use of respiratory accessory muscles. Able to speak in full sentences. No jugular venous distention (JVD), thyromegaly. Lungs are diminished with fine crackles at the bases. Heart S1, S2, sinus rhythm. Abdomen is obese, soft, nontender, nondistended. Extremities positive pitting edema. LABORATORY DATA: White count 1.9, hemoglobin 8.3, hematocrit 29.3, platelet count 43. Sodium 144, potassium 4.2, chloride 111, bicarbonate 28, BUN 16, creatinine 0.72, glucose of 135. EGD by Dr. Chavez on 08/26 normal esophagus, a few recently bleeding angioectasias in the stomach treated with argon beam coagulation. Proton pump inhibitor (PPI) daily and Carafate 1 gram four times a day for two weeks. ASSESSMENT AND PLAN: 1. This is a 64-year-old with a history of recurrent gastrointestinal (GI) bleed and acute blood loss anemia secondary to a gastric antral vascular ectasia (GAVE) status post EGD with Dr. Chavez. The patient is to have Carafate four times a day, Protonix and outpatient followup. 2. Hypoxic respiratory failure secondary to community acquired pneumonia. The patient is continued on supplemental oxygen for saturations 88-92%. On ceftriaxone, azithromycin and Tessalon Perles. 3. Chronic obstructive pulmonary disease (COPD) exacerbation. On steroids. Alpha-1 antitrypsin deficiency complicating her care. Current on DuoNebs every 6 hours. 4. Diastolic heart failure on chronic torsemide and spironolactone. 5. Neuropathy, on gabapentin. 6. Hypothyroidism, on levothyroxine. 7. Depression, on trazodone and venlafaxine. 8. Morbid obesity complicating care.
[2019-08-28 07:58] VITALS: O2SAT 96
[2019-08-28] MEDS: PANTOPRAZOLE 40MG TAB (PROTONIX) PO SCH (08:10)
[2019-08-28] MEDS: TORSEMIDE 20 MG TAB PO SCH ×2 (08:10→14:47)
[2019-08-28] MEDS: VITAMIN B COMPLEX/VIT C CAP PO SCH (08:10)
[2019-08-28] MEDS: GABAPENTIN 400 MG CAP PO SCH ×3 (08:10→20:06)
[2019-08-28] MEDS: SUCRALFATE 1 GM TAB PO SCH ×4 (08:10→20:06)
[2019-08-28] MEDS: VENLAFAXINE **XR** 75MG CAPSULE PO SCH ×2 (08:10→20:05)
--- NOTE | 2019-08-28 08:57 | IPN ---
DATE: 08/28/2019 Tina is seen under the hospitalist service admitted with pneumonia. She does not feel much better. Says she is still shortness of breath and tries to exert herself. Chest x-ray showed right and left perihilar infiltrates. I wanted to flush out her history and physical. Patient has cirrhosis and she is followed by Dr. Dmitriy Rubio, gastroenterology in [place], [place] secondary alpha 1 antitrypsin deficiency. She has a history of recurrent GI bleeding from gastric antral vascular ectasia. She has had a recurrent endoscopy with photocoagulation. Further review of her office based records shows that she was seen by [facility]/2019 she had spirometry done and FEV1 2.3, FEVFVC ratio is 88% which is felt to be a normal pulmonary function test with normal diffuse in capacity. Has a history of bronchiectasis as well as pulmonary nodules being followed by pulmonary associates specifically Dr. Tillman. He reviewed the records from her previous primary provider which is [facility]. They noted a past history of chronic depression, anxiety, morbid obesity, pancytopenia secondary to portal hypertension from cirrhosis, 1.3 cm splenic artery aneurysm that has been stable on CT scan from 2016 to 2018. Cardiac catheterization done in [facility] 2010 which was normal, suspected sleep apnea, recurrent anemia from "GI bleeding" for epigastric antral vascular ectasia requiring repeated blood transfusion, hypothyroidism, osteoporosis, peripheral neuropathy. PHYSICAL EXAMINATION: Vital signs per flow sheet. 97 degrees, 96% oxygen saturation on 3 liters, 154/70. GENERAL APPEARANCE: Morbidly obese in no distress. HEENT: Unremarkable. Thick neck and narrow airway. LUNGS: Diffuse rhonchi. HEART: Regular rhythm and soft, nontender, trace peripheral edema. LABS: White count 1.9, previous differential 70% neutrophils which would give her absolute neutrophil count of approximately 1400, hemoglobin 8.3, platelets 43 which is stable, INR 1.24, sodium 144, potassium 4.2, BUN 16, creatinine 0.7, glucose 135. IMPRESSION: 1. Community acquired pneumonia on IV ceftriaxone and azithromycin, clinically improved not ready for discharge. 2. Pancytopenia secondary to portal hypertension from cirrhosis. She appears to be at her baseline. 3.Alpha 1 antitrypsin with normal pulmonary function testing including diffusing capacity 03/30. 4. Chronic hypoxic respiratory failure, chronic supplemental oxygen. 5. TAVE gastric vascular ectasis status-post Argon photocoagulation by Dr. Chavez, 08/26. 6. History of recurrent depression. Continue her antidepressant regimen. 7. Hypothyroidism. Stable on current dose of levothyroxine. 8. Question of congestive heart failure. She carries this diagnosis from her office chart and I suspect it is probably more right sided failure/cor pulmonale than left sided congestive heart failure. She is followed by [facility] locally. They do not have access to her echocardiogram nor was it in her outpatient chart. We will get an echocardiogram so she can have one on record here. I get the impression with her multiple medical problems there will probably be a few admission again in the future. 9. Bronchiectasis. Probably need supplemental oxygen upon discharge.
[2019-08-28 10:00] VITALS: BP 146/81
[2019-08-28 14:00] VITALS: BP 165/76
[2019-08-28] MEDS: AZITHROMYCIN INJ 500 MG, VIAL MATE ADAPTER 1 EACH in D5W 250 ML IV SCH (20:06)
[2019-08-28] MEDS: VITAMIN D 1,000 INTERNATIONAL UNITS TABLET PO SCH (20:06)
[2019-08-28] MEDS: SPIRONOLACTONE 25 MG TAB PO SCH (20:06)
[2019-08-28] MEDS: CYANOCOBALAMIN 500 MCG TAB PO SCH (20:06)
[2019-08-28] MEDS: traZODone 50 MG TAB PO SCH (20:06)
[2019-08-28 22:00] VITALS: BP 134/76
--- NOTE | 2019-08-28 22:04 | ECHO ---
DATE OF PROCEDURE: 08/28/2019 Date of : 1955 Age: 64 Gender: Female Height: 64 inches Weight: 332 pounds Body surface area: 2.43 meters squared Inpatient: [address] [place] [address], room 5130 REFERRING PHYSICIAN: Dr. Ryan Saha INDICATION: Edema. MEASUREMENTS: 2D Measurements: RV: 4.3 cm LV: 5.3 cm Septum: 1.3 cm Posterior wall: 1.3 cm Aortic root: 3.2 cm LA: 4.2 cm LVEF: 75% Doppler Measurements: AV: 2.3 meters per second LVOT: 1.7 meters per second LVOT diameter: 2.1 cm MV-E: 127, A: 110, EA ratio: 1.2 Early mitral deceleration time: 204 milliseconds E prime medial: 13.4, A prime medial: 10, E prime lateral: 10. Average E/E prime ratio: 10.9/pulmonary capillary wedge pressure: 15.4 mmHg. PV: 0.9 meters per second Pulmonary artery acceleration time: 140 milliseconds RVSP: 36 mmHg IVC: 2.0 cm COMMENTS: Normal sinus rhythm with right bundle branch block. Technically challenging study but diagnostically useful information was still obtained. M-mode and two-dimensional echocardiography was performed with pulsed, continuous wave, color flow and tissue Doppler studies. Mild concentric left ventricular hypertrophy with hyperkinetic wall motion. Mildly dilated left atrium with grade 2 left ventricular (LV) diastolic dysfunction and only mildly elevated estimated mean left atrial pressure. Mildly dilated right heart chambers with normal wall motion and Doppler evidence of mild pulmonary hypertension. Normal inferior vena cava (IVC) size and collapse against an elevated central venous pressure.. Mild aortic valvular sclerosis without stenosis (elevated transvalvular velocities related to hyperkinetic flow not left ventricular outflow tract obstruction). Trace aortic insufficiency. Mild degenerative changes of the mitral valvular apparatus without functional valvular abnormality. Normal appearing and functioning tricuspid valve. No apparent intracardiac mass or pericardial effusion. MTDD
[2019-08-28] MEDS: cefTRIAXone SOD 1 GM in D5W MINI-BAG PLUS 50 ML IV SCH (23:15)
[2019-08-29] MEDS: IPRATROPIUM 0.5MG/ALBUTEROL 2.5MG INH SOL UD 3ML (DUONEB)(J7620) NEB SCH ×4 (00:05→19:57)
[2019-08-29] MEDS: BENZONATATE 100 MG CAP PO SCH ×3 (05:24→21:39)
[2019-08-29] MEDS: methylPREDNISolone INJ 125 MG/2 ML VIAL (J2930) IV SCH ×3 (05:24→21:41)
[2019-08-29] MEDS: LEVOTHYROXINE 88MCG TABLET (0.088 MG) PO SCH (05:24)
[2019-08-29 06:43] VITALS: BP 108/66
[2019-08-29 07:26] LABS: HEMATOCRIT 29.5 % (36.0-47.0); HEMOGLOBIN 8.4 g/dl (12.0-15.5); LYMPH # 0.3 10^3/uL (1.5-5.0); LYMPH % 11.8 % (24.0-44.0); MEAN CORPUSCULAR HEMOGLOBIN 25.1 pg (27.0-33.0); MEAN CORPUSCULAR HGB CONC 28.5 g/dl (32.0-36.5); MEAN CORPUSCULAR VOLUME 88.1 fl (80.0-96.0); MONO # 0.1 10^3/uL (0.0-0.8); MONO % 3.5 % (0.0-5.0); NEUTROPHILS # 2.4 10^3/uL (1.5-8.5); PLATELET COUNT, AUTOMATED 48 10^3/uL (150-450); RED BLOOD COUNT 3.35 10^6/uL (4.00-5.40); WHITE BLOOD COUNT 2.9 10^3/uL (4.0-10.0)
[2019-08-29 07:47] LABS: BLOOD UREA NITROGEN 20 MG/DL (7-18); CALCIUM LEVEL 8.6 MG/DL (8.8-10.2); CARBON DIOXIDE LEVEL 34 MEQ/L (21-32); CHLORIDE LEVEL 104 MEQ/L (98-107); CREATININE FOR GFR 0.81 MG/DL (0.55-1.30); GLOMERULAR FILTRATION RATE > 60.0 (>45); GLUCOSE, FASTING 118 MG/DL (70-100); POTASSIUM SERUM 3.1 MEQ/L (3.5-5.1); SODIUM LEVEL 142 MEQ/L (136-145)
[2019-08-29] MEDS: SUCRALFATE 1 GM TAB PO SCH ×4 (08:27→21:40)
[2019-08-29] MEDS: VENLAFAXINE **XR** 75MG CAPSULE PO SCH ×2 (08:27→21:39)
[2019-08-29] MEDS: TORSEMIDE 20 MG TAB PO SCH ×2 (08:27→14:04)
[2019-08-29] MEDS: PANTOPRAZOLE 40MG TAB (PROTONIX) PO SCH (08:27)
[2019-08-29] MEDS: GABAPENTIN 400 MG CAP PO SCH ×3 (08:27→21:39)
[2019-08-29] MEDS: VITAMIN B COMPLEX/VIT C CAP PO SCH (08:27)
--- NOTE | 2019-08-29 09:51 | IPN ---
DATE OF SERVICE: 08/29/2019 Tina feels better. She is aerating better. She is less short of breath. She is ambulating a little bit in the hallway. Still not ready for discharge but has improved clinically. PHYSICAL EXAMINATION: Afebrile. Vital signs stable. 108/66, oxygen (O2) saturation is around 88% on 2 liters (she uses oxygen at home chronically). Her echocardiogram shows some right-sided findings. Otherwise, unremarkable. Ejection fraction is 75%. PHYSICAL EXAMINATION: No jugular venous distention (JVD). Lungs: A few wheezes and rhonchi. Much better than yesterday. Good air movement. Heart: Regular rate and rhythm. Abdomen: Soft, nontender, obese. LABORATORIES: Complete blood count (CBC) unremarkable. Potassium is 3.1. IMPRESSION: 1. Pneumonia. Improved on ceftriaxone and azithromycin and nebulized bronchodilator and methylprednisolone. Tomorrow will put her on by mouth steroid. 2. Pulmonary hypertension on echocardiogram. She apparently has seen Dr. Tillman, was tested, and does not have sleep apnea. I suspect this right-sided strain is related to Pickwickian syndrome from morbid obesity. 3. Depression. Continue her current antidepressant regimen. 4. Pancytopenia secondary to cirrhosis/hypersplenism. 5. Alpha-1 antitrypsin deficiency. Probably is leading to cirrhosis. 6. Cirrhosis. She has gastric antral vascular ectasia (GAVE), status post argon laser photocoagulation, most recently 08/26. I expect her to be discharged in a day or two, probably on 08/31/2019.
[2019-08-29] MEDS: POTASSIUM CHLORIDE 10 MEQ SR TABLET PO SCH ×2 (10:26→21:40)
[2019-08-29 14:00] VITALS: BP 110/68
[2019-08-29 20:00] VITALS: O2SAT 91
[2019-08-29] MEDS: VITAMIN D 1,000 INTERNATIONAL UNITS TABLET PO SCH (21:39)
[2019-08-29] MEDS: SPIRONOLACTONE 25 MG TAB PO SCH (21:40)
[2019-08-29] MEDS: traZODone 50 MG TAB PO SCH (21:41)
[2019-08-29] MEDS: AZITHROMYCIN INJ 500 MG, VIAL MATE ADAPTER 1 EACH in D5W 250 ML IV SCH (21:46)
[2019-08-29] MEDS: cefTRIAXone SOD 1 GM in D5W MINI-BAG PLUS 50 ML IV SCH (21:47)
[2019-08-29 22:00] VITALS: BP 160/69
[2019-08-29] MEDS: CYANOCOBALAMIN 500 MCG TAB PO SCH (23:31)
[2019-08-30 00:37] VITALS: O2SAT 92
[2019-08-30] MEDS: IPRATROPIUM 0.5MG/ALBUTEROL 2.5MG INH SOL UD 3ML (DUONEB)(J7620) NEB SCH ×4 (01:19→19:35)
[2019-08-30 06:00] VITALS: BP 130/60; O2SAT 92
[2019-08-30 06:28] LABS: HEMATOCRIT 32.4 % (36.0-47.0); HEMOGLOBIN 9.2 g/dl (12.0-15.5); LYMPH # 0.5 10^3/uL (1.5-5.0); LYMPH % 12.4 % (24.0-44.0); MEAN CORPUSCULAR HEMOGLOBIN 24.6 pg (27.0-33.0); MEAN CORPUSCULAR HGB CONC 28.4 g/dl (32.0-36.5); MEAN CORPUSCULAR VOLUME 86.6 fl (80.0-96.0); MONO # 0.2 10^3/uL (0.0-0.8); MONO % 3.7 % (0.0-5.0); NEUTROPHILS # 3.3 10^3/uL (1.5-8.5); NEUTROPHILS % 80.9 % (36.0-66.0); RED BLOOD COUNT 3.74 10^6/uL (4.00-5.40)
[2019-08-30 06:33] LABS: PLATELET COUNT, AUTOMATED 76 10^3/uL (150-450)
[2019-08-30] MEDS: BENZONATATE 100 MG CAP PO SCH ×3 (06:36→21:45)
[2019-08-30] MEDS: LEVOTHYROXINE 88MCG TABLET (0.088 MG) PO SCH (06:36)
[2019-08-30] MEDS: methylPREDNISolone INJ 125 MG/2 ML VIAL (J2930) IV SCH (06:37)
[2019-08-30 06:43] LABS: BLOOD UREA NITROGEN 21 MG/DL (7-18); CALCIUM LEVEL 8.6 MG/DL (8.8-10.2); CARBON DIOXIDE LEVEL 31 MEQ/L (21-32); CHLORIDE LEVEL 103 MEQ/L (98-107); CREATININE FOR GFR 0.86 MG/DL (0.55-1.30); GLOMERULAR FILTRATION RATE > 60.0 (>45); GLUCOSE, FASTING 134 MG/DL (70-100); POTASSIUM SERUM 3.3 MEQ/L (3.5-5.1); SODIUM LEVEL 141 MEQ/L (136-145)
[2019-08-30] MEDS: GABAPENTIN 400 MG CAP PO SCH ×3 (08:01→21:46)
[2019-08-30] MEDS: VITAMIN B COMPLEX/VIT C CAP PO SCH (08:01)
[2019-08-30] MEDS: PANTOPRAZOLE 40MG TAB (PROTONIX) PO SCH (08:01)
[2019-08-30] MEDS: SUCRALFATE 1 GM TAB PO SCH ×4 (08:02→21:45)
[2019-08-30] MEDS: POTASSIUM CHLORIDE 10 MEQ SR TABLET PO SCH ×2 (08:02→21:45)
[2019-08-30] MEDS: predniSONE 20 MG TAB PO SCH (08:02)
[2019-08-30] MEDS: TORSEMIDE 20 MG TAB PO SCH ×2 (08:02→14:03)
[2019-08-30] MEDS: VENLAFAXINE **XR** 75MG CAPSULE PO SCH ×2 (08:02→21:46)
--- NOTE | 2019-08-30 09:28 | IPN ---
DATE: 08/30/2019 Tina feels better. She is not quite ready for discharge but has improved on a daily basis. Not shortness of breath. Less cough. PHYSICAL EXAM: Afebrile. Vital signs stable. Oxygen saturation is 90% on 2 liters. General Appearance: Morbidly obese, sitting in bed. HEENT: Unremarkable. Lungs: A few rhonchi better than yesterday. Heart: Regular rate and rhythm. Abdomen: Soft, nontender. Trace peripheral edema. LABS: White count 4, hemoglobin 9.2. Potassium is up to 3.3. IMPRESSION: 1. Pneumonia. Continue ceftriaxone and azithromycin. Change her to oral steroids today. 2. Hyperkalemia. Supplement with potassium . 3. Cirrhosis with pancytopenia from portal hypertension and hypersplenism. CBC is improving. Anticipate discharge tomorrow.
[2019-08-30 14:00] VITALS: BP 147/68
[2019-08-30 21:35] VITALS: O2SAT 93
[2019-08-30] MEDS: AZITHROMYCIN INJ 500 MG, VIAL MATE ADAPTER 1 EACH in D5W 250 ML IV SCH (21:44)
[2019-08-30] MEDS: SPIRONOLACTONE 25 MG TAB PO SCH (21:46)
[2019-08-30] MEDS: VITAMIN D 1,000 INTERNATIONAL UNITS TABLET PO SCH (21:46)
[2019-08-30] MEDS: traZODone 50 MG TAB PO SCH (21:47)
[2019-08-30] MEDS: CYANOCOBALAMIN 500 MCG TAB PO SCH (21:47)
[2019-08-30 22:00] VITALS: BP 112/63
[2019-08-30] MEDS: cefTRIAXone SOD 1 GM in D5W MINI-BAG PLUS 50 ML IV SCH (23:24)
[2019-08-31] VITALS (13 sets, daily range): BP systolic 123–147; BP diastolic 71–77; O2SAT 91–99
[2019-08-31] MEDS: IPRATROPIUM 0.5MG/ALBUTEROL 2.5MG INH SOL UD 3ML (DUONEB)(J7620) NEB SCH ×4 (02:00→20:55)
[2019-08-31] MEDS: BENZONATATE 100 MG CAP PO SCH ×3 (06:01→21:34)
[2019-08-31] MEDS: LEVOTHYROXINE 88MCG TABLET (0.088 MG) PO SCH (06:01)
[2019-08-31 07:00] LABS: BASO % 0.2 % (0.0-1.0); HEMATOCRIT 32.2 % (36.0-47.0); HEMOGLOBIN 9.2 g/dl (12.0-15.5); LYMPH # 0.7 10^3/uL (1.5-5.0); LYMPH % 15.1 % (24.0-44.0); MEAN CORPUSCULAR HEMOGLOBIN 24.9 pg (27.0-33.0); MEAN CORPUSCULAR HGB CONC 28.6 g/dl (32.0-36.5); MONO # 0.3 10^3/uL (0.0-0.8); MONO % 6.2 % (0.0-5.0); NEUTROPHILS # 3.8 10^3/uL (1.5-8.5); NEUTROPHILS % 77.5 % (36.0-66.0); WHITE BLOOD COUNT 4.9 10^3/uL (4.0-10.0)
[2019-08-31 07:05] LABS: PLATELET COUNT, AUTOMATED 82 10^3/uL (150-450)
[2019-08-31 07:21] LABS: BLOOD UREA NITROGEN 24 MG/DL (7-18); CALCIUM LEVEL 8.9 MG/DL (8.8-10.2); CARBON DIOXIDE LEVEL 33 MEQ/L (21-32); CHLORIDE LEVEL 102 MEQ/L (98-107); CREATININE FOR GFR 0.89 MG/DL (0.55-1.30); GLOMERULAR FILTRATION RATE > 60.0 (>45); GLUCOSE, FASTING 87 MG/DL (70-100); POTASSIUM SERUM 3.4 MEQ/L (3.5-5.1); SODIUM LEVEL 141 MEQ/L (136-145)
--- NOTE | 2019-08-31 09:03 | IPN ---
DATE: 08/31/2019 I was intending to discharge Tina today, when I go to see her she feels shaky and that her heart is racing, which is making her a little short of breath. PHYSICAL EXAM: 132/72, pulse 91, ____92% oxygen saturation on room air. Heart rate this morning was 92. When I went to see her it was in the 120s-140s and irregularly irregular. On physical exam, alert, conversant, mildly anxious. Lungs decreased breath sounds, clear. Heart irregular rate and rhythm, tachycardic. Abdomen soft, nontender. No masses. No peripheral edema. LABS: CBC is unchanged. Potassium is up to 3.4. IMPRESSION: 1. Tachycardia, suspect atrial fibrillation. Stat EKG ordered, followup based upon this. 2. Hypokalemia is trending up but is still low. Potassium dose increased. 3. Pneumonia, stable on her current regimen. 4. Cirrhosis with pancytopenia. CBCs are stable. Discharge is delayed due to the arrhythmia. MTDD
[2019-08-31] MEDS: SUCRALFATE 1 GM TAB PO SCH ×4 (09:12→21:36)
[2019-08-31] MEDS: POTASSIUM CHLORIDE 10 MEQ SR TABLET PO SCH ×3 (09:13→21:35)
[2019-08-31] MEDS: GABAPENTIN 400 MG CAP PO SCH ×3 (09:15→21:37)
[2019-08-31] MEDS: predniSONE 20 MG TAB PO SCH (09:15)
[2019-08-31] MEDS: PANTOPRAZOLE 40MG TAB (PROTONIX) PO SCH (09:16)
[2019-08-31] MEDS: TORSEMIDE 20 MG TAB PO SCH ×2 (09:16→15:46)
[2019-08-31] MEDS: VENLAFAXINE **XR** 75MG CAPSULE PO SCH ×2 (09:17→21:35)
[2019-08-31] MEDS: VITAMIN B COMPLEX/VIT C CAP PO SCH (09:17)
--- NOTE | 2019-08-31 09:19 | ECGEPIP ---
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
[2019-08-31 10:30] LABS: MAGNESIUM LEVEL 1.9 MG/DL (1.8-2.4)
[2019-08-31] MEDS: bisoproloL fumarate 5 MG TAB PO SCH ×2 (11:02→21:00)
--- NOTE | 2019-08-31 11:07 | IPN ---
DATE: 08/31/2019 Tina's EKG was reviewed and shows atrial fibrillation. Heart rate at that time was 101. It was 120-140 when I was examining her. She has no past history with atrial fibrillation. She will be transferred to telemetry unit. We will put her on a low dose beta-fabiano. Echocardiogram has been ordered. Thyroid functions have been ordered. It could have been precipitated by the hypokalemia, which has already been addressed. We will hold off anticoagulation to see whether she converts back to sinus rhythm with rate control, if not, we will need to anticoagulate as well. We will check enzymes to make sure there has not been occult ischemia leading to the atrial fibrillation, though I suspect it is probably more related to the pulmonary infection than the electrolyte disturbance.
[2019-08-31 11:08] LABS: CK-MB VALUE MASS 1.1 NG/ML (<3.6); CPK CREATINE PHOSPHOKINASE 68 U/L (26-192); MB/CK RELATIVE INDEX 1.62 (< OR =4); THYROID STIMULATING HORMONE 0.124 uIU/ML (0.358-3.740); TROPONIN I < 0.02 NG/ML (< 0.10)
[2019-08-31] MEDS ORDERED: bisoproloL fumarate 5 MG TAB PO ONE (18:30)
[2019-08-31 18:37] LABS: CK-MB VALUE MASS 1.3 NG/ML (<3.6); CPK CREATINE PHOSPHOKINASE 54 U/L (26-192); MB/CK RELATIVE INDEX 2.41 (< OR =4); TROPONIN I < 0.02 NG/ML (< 0.10)
[2019-08-31] MEDS: AZITHROMYCIN INJ 500 MG, VIAL MATE ADAPTER 1 EACH in D5W 250 ML IV SCH (20:18)
[2019-08-31] MEDS: VITAMIN D 1,000 INTERNATIONAL UNITS TABLET PO SCH (21:34)
[2019-08-31] MEDS: CYANOCOBALAMIN 500 MCG TAB PO SCH (21:36)
[2019-08-31] MEDS: traZODone 50 MG TAB PO SCH (21:36)
[2019-08-31] MEDS: SPIRONOLACTONE 25 MG TAB PO SCH (21:36)
[2019-08-31] MEDS: cefTRIAXone SOD 1 GM in D5W MINI-BAG PLUS 50 ML IV SCH (22:46)
[2019-09-01] VITALS (27 sets, daily range): BP systolic 90–155; BP diastolic 50–95; O2SAT 87–98
[2019-09-01] MEDS: IPRATROPIUM 0.5MG/ALBUTEROL 2.5MG INH SOL UD 3ML (DUONEB)(J7620) NEB SCH ×4 (01:44→18:25)
[2019-09-01] MEDS: BENZONATATE 100 MG CAP PO SCH ×3 (05:20→21:11)
[2019-09-01] MEDS: LEVOTHYROXINE 88MCG TABLET (0.088 MG) PO SCH (05:21)
[2019-09-01 05:35] LABS: BASO % 0.1 % (0.0-1.0); EOS % 0.4 % (0.0-3.0); HEMATOCRIT 34.3 % (36.0-47.0); HEMOGLOBIN 9.9 g/dl (12.0-15.5); LYMPH # 1.3 10^3/uL (1.5-5.0); LYMPH % 16.9 % (24.0-44.0); MEAN CORPUSCULAR HEMOGLOBIN 24.8 pg (27.0-33.0); MEAN CORPUSCULAR HGB CONC 28.9 g/dl (32.0-36.5); MONO # 0.4 10^3/uL (0.0-0.8); MONO % 5.6 % (0.0-5.0); NEUTROPHILS # 5.6 10^3/uL (1.5-8.5); NEUTROPHILS % 75.8 % (36.0-66.0); RED BLOOD COUNT 3.99 10^6/uL (4.00-5.40); WHITE BLOOD COUNT 7.4 10^3/uL (4.0-10.0)
[2019-09-01 05:37] LABS: PLATELET COUNT, AUTOMATED 94 10^3/uL (150-450)
[2019-09-01 05:59] LABS: BLOOD UREA NITROGEN 25 MG/DL (7-18); CALCIUM LEVEL 8.6 MG/DL (8.8-10.2); CARBON DIOXIDE LEVEL 36 MEQ/L (21-32); CHLORIDE LEVEL 101 MEQ/L (98-107); CREATININE FOR GFR 0.94 MG/DL (0.55-1.30); GLOMERULAR FILTRATION RATE > 60.0 (>45); GLUCOSE, FASTING 81 MG/DL (70-100); MAGNESIUM LEVEL 1.6 MG/DL (1.8-2.4); POTASSIUM SERUM 3.7 MEQ/L (3.5-5.1); SODIUM LEVEL 141 MEQ/L (136-145)
[2019-09-01] MEDS: bisoproloL fumarate 5 MG TAB PO SCH ×2 (08:44→20:38)
[2019-09-01] MEDS: SUCRALFATE 1 GM TAB PO SCH ×4 (08:44→20:18)
[2019-09-01] MEDS: predniSONE 20 MG TAB PO SCH (08:45)
[2019-09-01] MEDS: POTASSIUM CHLORIDE 10 MEQ SR TABLET PO SCH ×3 (08:45→20:19)
[2019-09-01] MEDS: VENLAFAXINE **XR** 75MG CAPSULE PO SCH ×2 (08:45→20:13)
[2019-09-01] MEDS: GABAPENTIN 400 MG CAP PO SCH ×3 (08:45→20:16)
[2019-09-01] MEDS: VITAMIN B COMPLEX/VIT C CAP PO SCH (08:45)
[2019-09-01] MEDS: TORSEMIDE 20 MG TAB PO SCH ×2 (08:45→15:50)
[2019-09-01] MEDS: PANTOPRAZOLE 40MG TAB (PROTONIX) PO SCH (08:45)
[2019-09-01] MEDS ORDERED: CEFUROXIME 500 MG TAB PO SCH (09:00)
[2019-09-01] MEDS ORDERED: MAG SULF 1GM/100ML (MAG RUN) 1 GM in IV 1 EA IV ONE (09:30)
--- NOTE | 2019-09-01 10:50 | IPN ---
DATE: 09/01/2019 Tina is seen in the progressive care unit (PCU). She is still in atrial fibrillation. Her rate is under better control. She has no past history of atrial fibrillation. She was on warfarin in the past for venous thromboembolism (VTE). She has an inferior venal cava filter in place. Her pneumonia is better. She does seem a little volume overloaded on exam today so we are going to initiate some diuresis. PHYSICAL EXAMINATION: Blood pressure 155/70. Pulse 77. Respiratory rate 18. 98% oxygen saturation on room air. General Appearance: Morbidly obese, resting in bed, in no distress. Lungs: Expiratory wheezes, increased from yesterday. Heart: Regular rate and rhythm. Rate is around 70 to 80. Abdomen is soft, nontender, no masses. Trace peripheral edema. Normal strength in the arms and legs. LABS: White count 7.9, hemoglobin stable at 9.9, platelets 94. Sodium 141, potassium 3.7, BUN 25, creatinine 0.9, magnesium 1.6. Free T4 was normal. TSH minimally suppressed. IMPRESSION: 1. Atrial fibrillation. Rate is under better control. Cardiology consulted. Dr. Tolbert will see the patient in consultation. Left atrium on echocardiogram was mildly dilated at 42 mm and there was some sign of pulmonary hypertension. Anticoagulation is an issue. She has recurrent upper GI bleeding from gastric antral vascular ectasia (GAVE) and actually underwent Argon photocoagulation during this hospitalization by Dr. Chavez. In face of recurrent GI bleeding and known cirrhosis with telangiectasias, the risk of anticoagulation might outweigh benefit. I will defer to cardiology on this. 2. Hypothyroidism. Stable on current dose of levothyroxine. 3. Chronic respiratory failure. She has chronic supplemental oxygen at home. Apparently, sleep apnea workup was negative. She saw Dr. Tillman for this. 4. Alpha-1 antitrypsin. Normal pulmonary function testing, including diffusing capacity 03/2019. 5. Pancytopenia secondary to portal hypertension from cirrhosis. CBC is at her baseline. 6. Community acquired pneumonia. Her procalcitonin returned negative. I have stopped her azithromycin. I planned to put her on Ceftin, but with a normal procalcitonin I think we can just discontinue the antibiotics entirely. Will also reduce dose of her prednisone to 20 mg daily for five days and then stop.
[2019-09-01] MEDS: FUROSEMIDE 100 MG/10 ML VIAL (J1940) IV SCH ×2 (11:34→16:51)
[2019-09-01] MEDS ORDERED: AMIODARONE HCL 150 MG in IV 1 EA IV STA (11:36)
[2019-09-01] MEDS: AMIODARONE 200 MG TAB (PACERONE) PO SCH ×2 (15:50→20:18)
--- NOTE | 2019-09-01 16:57 | CR ---
DATE OF CONSULTATION: 09/01/2019 REFERRING PHYSICIAN: Dr. Ryan Saha REASON FOR CONSULTATION: Paroxysmal atrial fibrillation. HISTORY OF PRESENT ILLNESS: Tina Saucedo is a pleasant, severely morbidly obese 64-year-old woman with extensive multiple medical problems. From a cardiac viewpoint, she has chronic diastolic heart failure. She was hospitalized with pneumonia on this occasion and during this hospitalization she developed atrial fibrillation with rapid ventricular rate, which is a new diagnosis for her. She reports that she has had two prior cardiac catheterizations. One was around 2000 at [facility], which, to her knowledge, showed her arteries were okay. She believes that she had a second cardiac catheterization at around 2009 at [facility] in [place], at which time, to her knowledge, her coronary arteries were clean. She was aware of rapid palpitations when she went into atrial fibrillation during this admission. Despite use of a dose of amiodarone 150 mg IV that ordered, she remained in atrial fibrillation at times with rapid ventricular response. Her heart rate remained rapid despite addition of bisoprolol. Her last echocardiogram Doppler was at [facility] on 08/28/2019. At that time, she had sinus rhythm with right bundle branch block. Presence of mild concentric left ventricular hypertrophy with hyperkinetic wall motion, grade II LV diastolic dysfunction, mildly dilated right atrium and right ventricle. Mild aortic valve sclerosis with trace aortic regurgitation. Mild age degenerative changes involving the mitral valve without functional abnormality. Normal tricuspid valve. The patient denies any chest pain or chest discomfort with or without activity. She reports that she usually has chronic shortness of breath with above ordinary activity. She became more short of breath prior to this hospitalization. Currently, she gets exertional dyspnea with minimal activity in the room. No orthopnea or paroxysmal nocturnal dyspnea. She has not been having any leg or ankle swelling recently. No embolic events. No claudication. MEDICATIONS PRIOR TO ADMISSION: - calcium carbonate 600 mg at night - vitamin D3 400 units at night - vitamin B12 1000 mcg at night - cyclobenzaprine 10 mg three times a day as needed - doxycycline 100 mg twice a day - gabapentin 800 mg twice a day and 400 mg every afternoon - DuoNeb every 6 hours as needed - levothyroxine 88 mcg daily - loperamide 2 mg every 6 hours as needed for diarrhea - pantoprazole 40 mg twice a day - potassium chloride 20 mEq at night - prednisone 20 mg twice a day - simethicone before food and nightly as needed - spironolactone 25 mg at night - torsemide 20 mg twice a day - trazodone 150 mg at night - venlafaxine 225 mg at night - vitamin B complex one daily CURRENT MEDICATIONS IN HOSPITAL: - albuterol nebulizers every 1 hour as needed - DuoNeb every 6 hours - Tessalon Perles 200 mg every 8 hours - bisoprolol 5 mg twice a day - calcium carbonate 500 mg at night as needed - vitamin B12 1000 mcg at night - Flexeril 10 mg three times a day as needed - furosemide 60 mg IV twice a day - gabapentin 800 mg twice a day and 400 mg every afternoon - levothyroxine 88 mcg daily - Imodium 2 mg every 6 hours as needed - Protonix 40 mg by mouth daily - potassium chloride 40 mEq three times a day - prednisone 20 mg daily - spironolactone 25 mg at night - sucralfate 1 gram four times a day - torsemide 20 mg by mouth twice a day - trazodone 150 mg at night - venlafaxine 225 mg daily - vitamin B complex with vitamin C one daily - vitamin D 1000 units at night OTHER PAST MEDICAL AND SURGICAL HISTORY: Alpha 1 antitrypsin deficiency, morbid obesity, nonalcoholic steatohepatitis (LISA), diastolic heart failure, pancytopenia, neuropathy, recurrent gastrointestinal bleeds attributed to rectal fissures, prepyloric erosion, hiatal hernia, antral gastritis, antral ulcers, distal esophagitis, AV malformations, gastric antral vascular ectasia, gastroesophageal reflux disease (GERD), irritable bowel syndrome, optic migraines, dyslipidemia, chronic depression, vitamin D deficiency, prior epilepsy (none since 1982), prior deep vein thrombosis (DVT) times two, status post IVC filter (1999), remote history of stroke with transient left sided weakness, hypothyroidism, unsteady gait, appendectomy, section times two, tubal ligation, status post partial hysterectomy, status post left ovarian cystectomy times two, status post cholecystectomy, status post hemorrhoidectomy, left lower abdominal incarcerated hernia repair, status post colostomy placement and reversal, rectal fissurectomy with double skin graft, ventral mid and upper abdominal hernias, status post mesh placement. SOCIAL HISTORY: Nonsmoker. FAMILY HISTORY: Father had breast cancer. Mother had Ariana Gehrig's disease. One brother with esophageal and stomach cancer. ADVERSE DRUG REACTIONS: AMOXICILLIN, CLAVULANIC ACID, CODEINE, ERYTHROMYCIN, HYDROMORPHONE, IBUPROFEN, PREGABALIN. PHYSICAL EXAMINATION: Morbidly obese, woman who appears her chronological age, who is not in any respiratory or psychological distress. Height is 64 inches, weight 149.5 kg, Body Mass Index (BMI) 56.6. Temperature 97.2, pulse 78 (irregularly irregular), respiratory rate 18, blood pressure 123/95, oxygen saturation 94% on oxygen 2 liters per minute via nasal cannula. Jugular venous pulsations were at 5 cm. No conjunctival pallor, scleral icterus or xanthelasma. Oral mucosa is moist and without pallor or cyanosis. Trachea midline. No clubbing evidenced or splinter hemorrhages. No palpable thyroid. No skin lesions, skin pallor or icterus. Oriented to person, place and time. Mood and affect normal. Curvature of the spine normal. Gait not tested. Gross motor strength and tone normal. No abnormal muscle fasciculations or tremors. Carotids are normal in volume and contour and without bruits. First heart sounds variable in intensity. S2 normal. No S3 or murmurs appreciated. No pericardial friction rubs. No palpable abdominal aorta. No abdominal bruits. Femoral pulse difficult to palpate due to severe obesity. Pedal pulse normal. No peripheral edema. No varicose veins. Abdomen: Soft, nontender. Normal bowel sounds. No hepatosplenomegaly or organomegaly, difficult to assess due to abdominal obesity. Stool for occult blood ordered, as the patient is not a candidate for anticoagulation. ECG 08/31/2019 showed atrial fibrillation with rapid ventricular response, heart rate 101 beats per minute, intraventricular conduction delay, nonspecific ST-T abnormalities. The patient was in sinus rhythm on ECG 08/25/2019. Portable chest x-ray 08/23/2019 reports right and left perihilar infiltrates. Laboratory work 09/01/2019 was reviewed. WBC 7.4, hemoglobin 9.9, hematocrit 34.2, platelets 94. Sodium 141, potassium 3.7, chloride 101, BUN 25, creatinine 0.94, estimated GFR greater than 60, magnesium 1.6, calcium 8.6. Laboratory work from 08/31/2019 showed TSH 0.124, free T4 1.30. ASSESSMENT AND PLAN: 1. Paroxysmal atrial fibrillation. I suspect that this patient's atrial fibrillation was in part precipitated by the stress of her current illness with pneumonia. This patient unfortunately is not a candidate for anticoagulation because of all of her gastrointestinal bleeding problems. Factors contributing to the development of atrial fibrillation in this patient would include obesity and diastolic heart failure. Agree with bisoprolol. I will try a short term loading of amiodarone to see if we can get her to convert back to sinus rhythm. If this does not work then I am going to recommend just a rate control approach. My hope is not to use amiodarone long-term. 2. Chronic diastolic heart failure. The patient appears to be compensated. I think that she can be taken off of furosemide IV and continue torsemide and spironolactone. 3. Abnormal ECG. ECG is described above. 4. Cardiomegaly. Her last echocardiogram showed mild concentric left ventricular hypertrophy with normal left ventricular systolic function and grade II LV diastolic dysfunction. Management of heart failure as above. 5. Morbid obesity. I have switched her from a regular diet to a DASH diet.
[2019-09-01] MEDS: VITAMIN D 1,000 INTERNATIONAL UNITS TABLET PO SCH (20:16)
[2019-09-01] MEDS: traZODone 50 MG TAB PO SCH (20:17)
[2019-09-01] MEDS: CYANOCOBALAMIN 500 MCG TAB PO SCH (20:17)
[2019-09-01] MEDS: SPIRONOLACTONE 25 MG TAB PO SCH (20:18)
[2019-09-02] VITALS (27 sets, daily range): BP systolic 102–138; BP diastolic 53–79; O2SAT 85–96
[2019-09-02] MEDS: IPRATROPIUM 0.5MG/ALBUTEROL 2.5MG INH SOL UD 3ML (DUONEB)(J7620) NEB SCH ×4 (02:23→20:00)
[2019-09-02 05:33] LABS: EOS # 0.1 10^3/uL (0.0-0.5); HEMATOCRIT 31.5 % (36.0-47.0); HEMOGLOBIN 9.2 g/dl (12.0-15.5); LYMPH % 15.8 % (24.0-44.0); MEAN CORPUSCULAR HEMOGLOBIN 25.3 pg (27.0-33.0); MEAN CORPUSCULAR HGB CONC 29.2 g/dl (32.0-36.5); MEAN CORPUSCULAR VOLUME 86.5 fl (80.0-96.0); MONO # 0.4 10^3/uL (0.0-0.8); MONO % 7.1 % (0.0-5.0); NEUTROPHILS # 4.6 10^3/uL (1.5-8.5); NEUTROPHILS % 74.9 % (36.0-66.0); PLATELET COUNT, AUTOMATED 80 10^3/uL (150-450); RED BLOOD COUNT 3.64 10^6/uL (4.00-5.40); WHITE BLOOD COUNT 6.1 10^3/uL (4.0-10.0)
[2019-09-02 06:09] LABS: BLOOD UREA NITROGEN 27 MG/DL (7-18); CARBON DIOXIDE LEVEL 33 MEQ/L (21-32); CHLORIDE LEVEL 106 MEQ/L (98-107); CREATININE FOR GFR 0.95 MG/DL (0.55-1.30); GLOMERULAR FILTRATION RATE > 60.0 (>45); GLUCOSE, FASTING 84 MG/DL (70-100); POTASSIUM SERUM 4.2 MEQ/L (3.5-5.1); SODIUM LEVEL 144 MEQ/L (136-145)
[2019-09-02] MEDS: BENZONATATE 100 MG CAP PO SCH ×3 (06:22→21:17)
[2019-09-02] MEDS: LEVOTHYROXINE 88MCG TABLET (0.088 MG) PO SCH (06:22)
--- NOTE | 2019-09-02 08:21 | ECHO ---
DATE OF PROCEDURE: 08/31/2019 DATE OF : 1955 AGE: 64 GENDER: Female HEIGHT: 64 inches WEIGHT: 332 pounds BODY SURFACE AREA: 2.43 m2 INPATIENT: PCU - Room 3229 REFERRING PHYSICIAN: Dr. Ryan Saha INDICATION: Abnormal EKG/atrial fibrillation. COMMENTS: Atrial fibrillation with controlled ventricular response. Right bundle branch block. A complete study was performed as requested. However, the patient just had a complete study performed 08/28/2019. Today's examination was unchanged from that previous study three days ago, except for the patient's underlying rhythm change.
[2019-09-02] MEDS: POTASSIUM CHLORIDE 10 MEQ SR TABLET PO SCH ×3 (08:45→21:18)
[2019-09-02] MEDS: GABAPENTIN 400 MG CAP PO SCH ×3 (08:45→21:16)
[2019-09-02] MEDS: SUCRALFATE 1 GM TAB PO SCH ×4 (08:45→21:16)
[2019-09-02] MEDS: VITAMIN B COMPLEX/VIT C CAP PO SCH (08:49)
[2019-09-02] MEDS: PANTOPRAZOLE 40MG TAB (PROTONIX) PO SCH (08:49)
[2019-09-02] MEDS: predniSONE 20 MG TAB PO SCH (08:49)
[2019-09-02] MEDS: AMIODARONE 200 MG TAB (PACERONE) PO SCH ×2 (08:49→15:13)
[2019-09-02] MEDS: TORSEMIDE 20 MG TAB PO SCH ×2 (08:49→15:14)
[2019-09-02] MEDS: bisoproloL fumarate 5 MG TAB PO SCH ×2 (08:49→21:17)
[2019-09-02] MEDS: VENLAFAXINE **XR** 75MG CAPSULE PO SCH ×2 (08:49→21:17)
--- NOTE | 2019-09-02 13:53 | IPN ---
DATE: 09/02/2019 Tina is still in atrial fibrillation. Her rate is under better control. She did not convert with the amiodarone. She is frustrated about her prolonged hospitalization. PHYSICAL EXAMINATION: 130/79. Pulse 72. 90% oxygen saturation. Alert, conversant, in no distress. No jugular venous distention. Lungs with decreased breath sounds, clear. Heart regular rate and rhythm. Rate around 80. Abdomen soft and nontender. No peripheral edema. LABS: White count normal at 6.1. Hemoglobin stable at 9.2. Platelets 80. Electrolytes unremarkable. Potassium 4.2. Magnesium 2.0. IMPRESSION: 1. Atrial fibrillation. Rate is controlled. Did not convert to sinus rhythm with amiodarone. Anticoagulation is contraindicated due to recurrent upper GI bleeding requiring endoscopic intervention as recently as 08/26/2019. 2. Community acquired pneumonia. She is off her antibiotics. Prednisone dose was reduced. 3. Pancytopenia secondary to portal hypertension/hypersplenism from cirrhosis. CBC is at baseline. 4. Hypothyroidism. Stable on dose of levothyroxine. 5. Chronic respiratory failure. Chronic supplemental oxygen from Dr. Tillman. If she is going to stay in atrial fibrillation with her rate controlled, we could work towards discharge tomorrow if cardiology agrees. Appreciate Dr. Tolbert's assistance. Will get a home safety evaluation tomorrow.
[2019-09-02] MEDS: traZODone 50 MG TAB PO SCH (21:15)
[2019-09-02] MEDS: VITAMIN D 1,000 INTERNATIONAL UNITS TABLET PO SCH (21:16)
[2019-09-02] MEDS: CYANOCOBALAMIN 500 MCG TAB PO SCH (21:16)
[2019-09-02] MEDS: SPIRONOLACTONE 25 MG TAB PO SCH (21:18)
[2019-09-03] VITALS (12 sets, daily range): BP systolic 102–135; BP diastolic 54–69; O2SAT 88–98
[2019-09-03] MEDS: IPRATROPIUM 0.5MG/ALBUTEROL 2.5MG INH SOL UD 3ML (DUONEB)(J7620) NEB SCH ×3 (02:00→13:46)
[2019-09-03] MEDS: BENZONATATE 100 MG CAP PO SCH ×2 (05:22→14:23)
[2019-09-03] MEDS: LEVOTHYROXINE 88MCG TABLET (0.088 MG) PO SCH (05:22)
[2019-09-03 05:50] LABS: BLOOD UREA NITROGEN 26 MG/DL (7-18); CALCIUM LEVEL 8.9 MG/DL (8.8-10.2); CARBON DIOXIDE LEVEL 30 MEQ/L (21-32); CHLORIDE LEVEL 108 MEQ/L (98-107); CREATININE FOR GFR 0.96 MG/DL (0.55-1.30); GLOMERULAR FILTRATION RATE > 60.0 (>45); GLUCOSE, FASTING 79 MG/DL (70-100); POTASSIUM SERUM 4.9 MEQ/L (3.5-5.1); SODIUM LEVEL 142 MEQ/L (136-145)
[2019-09-03 06:14] LABS: EOS # 0.1 10^3/uL (0.0-0.5); EOS % 1.2 % (0.0-3.0); HEMATOCRIT 32.9 % (36.0-47.0); HEMOGLOBIN 9.2 g/dl (12.0-15.5); LYMPH # 1.2 10^3/uL (1.5-5.0); LYMPH % 20.2 % (24.0-44.0); MEAN CORPUSCULAR HEMOGLOBIN 24.7 pg (27.0-33.0); MEAN CORPUSCULAR VOLUME 88.4 fl (80.0-96.0); MONO # 0.4 10^3/uL (0.0-0.8); MONO % 5.8 % (0.0-5.0); NEUTROPHILS # 4.4 10^3/uL (1.5-8.5); RED BLOOD COUNT 3.72 10^6/uL (4.00-5.40); WHITE BLOOD COUNT 6.1 10^3/uL (4.0-10.0)
[2019-09-03 06:20] LABS: PLATELET COUNT, AUTOMATED 77 10^3/uL (150-450)
[2019-09-03] MEDS: VITAMIN B COMPLEX/VIT C CAP PO SCH (08:30)
[2019-09-03] MEDS: TORSEMIDE 20 MG TAB PO SCH ×2 (08:30→14:23)
[2019-09-03] MEDS: VENLAFAXINE **XR** 75MG CAPSULE PO SCH (08:30)
[2019-09-03] MEDS: SUCRALFATE 1 GM TAB PO SCH ×2 (08:31→14:23)
[2019-09-03] MEDS: PANTOPRAZOLE 40MG TAB (PROTONIX) PO SCH (08:31)
[2019-09-03] MEDS: bisoproloL fumarate 5 MG TAB PO SCH (08:31)
[2019-09-03] MEDS: GABAPENTIN 400 MG CAP PO SCH ×2 (08:32→14:23)
[2019-09-03] MEDS: predniSONE 20 MG TAB PO SCH (08:32)
[2019-09-03] MEDS: POTASSIUM CHLORIDE 10 MEQ SR TABLET PO SCH (09:00)
[2019-09-03] MEDS ORDERED: SUCR1TA PO (11:53)
[2019-09-03] MEDS ORDERED: PRED20TA PO (11:53)
[2019-09-03] MEDS ORDERED: BISO5TAB9 PO (11:53)
--- NOTE | 2019-09-03 14:06 | DSES ---
DATE OF ADMISSION: 08/25/2019 DATE OF DISCHARGE: PRINCIPAL DIAGNOSIS: Community acquired pneumonia. SECONDARY DIAGNOSES: 1. Atrial fibrillation, new onset. Anticoagulation contraindicated due to recurrent upper gastrointestinal bleeding. 2. Pancytopenia from portal hypertension. 3. Hypersplenism. 4. Upper gastrointestinal bleeding secondary to gastric antral vascular ectasia requiring photocoagulation. 5. Hypothyroidism. 6. Chronic respiratory failure. HISTORY: Tina Saucedo was admitted to the hospitalist service. I picked up her case several days into her admission. At that point, she had already undergone photocoagulation of antral angioectasias with stigmata of recent bleeding. We did an echocardiogram that showed left atrial dilatation 42 mm, ejection fraction 75%, mild LVH, grade 2 diastolic dysfunction, mild pulmonary hypertension. Her community acquired pneumonia was being treated with ceftriaxone and azithromycin. She was responding well to this. I intended to discharge her on 6th day of hospitalization, but at that point she was discovered to be in new onset atrial fibrillation with rapid ventricular response. She was transferred down to the progressive care unit (PCU). Rate was controlled. Cardiology was consulted. Dr. Tolbert saw her and adjusted her medications and agreed with withholding anticoagulation in the face of recurrent GI bleeding requiring endoscopic intervention. I plan to see her as an outpatient. Her atrial fibrillation came under good control, heart rate remained in the 80s. She did not covert with amiodarone and attempts at rhythm control were abandoned. On the day of discharge, she is resting comfortably. Oxygen saturation is 88% on room air and 95% on 2 liters (she has 2 liters of nasal cannula at home). Blood pressure 102/57, heart rate is in the 80s. She is resting comfortably. There is no jugular venous distention (JVD). Her lungs are entirely clear. Heart has regular rate and rhythm, rate around 80. Abdomen is soft, nontender. No masses. Trace peripheral edema. LABORATORIES: White count 6.1, hemoglobin 9.2, which is stable, platelets 77, which is stable. Sodium 142, potassium 4.9, BUN 26, creatinine 0.9, glucose 79. TSH slightly low at 0.12. Free T4 normal at 1.3. Troponin negative times three. Procalcitonin negative (antibiotic discontinued when this came back). Chest x-ray showed bilateral parahilar infiltrates. DISPOSITION: The patient is discharged home in improved and stable condition. She will followup with Francisca Rosa NP, her primary care provider, in 1 week. Activity is as tolerated. Diet is DASH diet. Followup with Dr. Tolbert per his office for atrial fibrillation. Followup with Dr. Chavez per his office for recurrent upper gastrointestinal bleeding. MEDICATIONS ON DISCHARGE: - calcium carbonate 600 mg at night - vitamin D 4000 units daily - B12 1000 mg daily - cyclobenzaprine 10 mg twice a day as needed for muscle spasms - gabapentin 800 mg twice a day with 400 mg in the afternoon - DuoNeb every 6 hours as needed - levothyroxine 88 mcg daily - loperamide 2 mg as needed for diarrhea - Protonix 40 mg twice a day - potassium chloride 20 mEq at night - Gas X as needed - spironolactone 25 mg at night - torsemide 20 mg twice a day - trazodone 150 mg at night - venlafaxine 150 mg at bedtime and 75 mg in the morning - bisoprolol 5 mg twice a day - prednisone 20 mg daily for 5 more days - Carafate 1 gram before food and nightly Home health referral has been made. Followup CBC and med profile as needed when she is seen in the office.
[2019-09-03] MEDS: CYCLOBENZAPRINE 10 MG TAB PO PRN (14:23)
== END 2019-09-03 16:22 | disposition home or self-care (01) | DRG 253 ==
LOC: EDBD 15:51 → M ED 15:51 → M ED INP 19:41 → M PCU 22:13 → M MS5PR 08-27 15:05 → M PCU 08-31 12:19
PROVIDERS: ADMIT Internal Medicine; ATTEND Family Medicine
PROC: 0W3P8ZZ Control Bleeding in Gastrointestinal Tract, Via Natural or Artificial Opening Endoscopic (ICD-10-PCS; principal; 2019-08-26 15:30)
DX: K31.811 Angiodysplasia of stomach and duodenum with bleeding (principal); J96.11 Chronic respiratory failure with hypoxia; D61.818 Other pancytopenia; J18.9 Pneumonia, unspecified organism; K76.6 Portal hypertension; E88.01 Alpha-1-antitrypsin deficiency; J44.1 Chronic obstructive pulmonary disease with (acute) exacerbation; I69.352 Hemiplegia and hemiparesis following cerebral infarction affecting left dominant side; Z68.43 Body mass index [BMI] 50.0-59.9, adult; I48.0 Paroxysmal atrial fibrillation; G62.9 Polyneuropathy, unspecified; E66.01 Morbid (severe) obesity due to excess calories; K74.60 Unspecified cirrhosis of liver; E03.9 Hypothyroidism, unspecified; Z79.899 Other long term (current) drug therapy; K21.9 Gastro-esophageal reflux disease without esophagitis; K44.9 Diaphragmatic hernia without obstruction or gangrene; G43.909 Migraine, unspecified, not intractable, without status migrainosus; R26.89 Other abnormalities of gait and mobility; E87.6 Hypokalemia; Z88.5 Allergy status to narcotic agent; Z88.1 Allergy status to other antibiotic agents; Z88.8 Allergy status to other drugs, medicaments and biological substances; F32.9 Major depressive disorder, single episode, unspecified; D73.1 Hypersplenism

== ENCOUNTER 2019-09-13 21:28 | Emergency (ER) | payer OTHER ==
[~2019-09-13] VITALS: Ht 162.6 cm; Wt 143.1 kg
[~2019-09-13 21:28] MED LIST changes: +BISO5TAB9 PO; +DOXY100C PO; +IPRA0.00 INH; +LOPE1CAP5 PO; +PRED20TA PO; +SIME125C4 PO; +SUCR1TA PO; +VENL75CA2 PO
[2019-09-13] MEDS ORDERED: methylPREDNISolone INJ 125 MG/2 ML VIAL (J2930) IV ONE (22:45)
[2019-09-13] MEDS ORDERED: IPRATROPIUM 0.5MG/ALBUTEROL 2.5MG INH SOL UD 3ML (DUONEB)(J7620) NEB ONE (22:45)
[2019-09-14 00:10] LABS: BASO % 0.2 % (0.0-1.0); HEMATOCRIT 30.7 % (36.0-47.0); HEMOGLOBIN 8.4 g/dl (12.0-15.5); LYMPH # 0.8 10^3/uL (1.5-5.0); LYMPH % 16.2 % (24.0-44.0); MEAN CORPUSCULAR HEMOGLOBIN 25.2 pg (27.0-33.0); MEAN CORPUSCULAR HGB CONC 27.4 g/dl (32.0-36.5); MEAN CORPUSCULAR VOLUME 92.2 fl (80.0-96.0); MONO # 0.2 10^3/uL (0.0-0.8); MONO % 4.7 % (0.0-5.0); NEUTROPHILS # 3.6 10^3/uL (1.5-8.5); NEUTROPHILS % 78.3 % (36.0-66.0); RED BLOOD COUNT 3.33 10^6/uL (4.00-5.40); WHITE BLOOD COUNT 4.6 10^3/uL (4.0-10.0)
[2019-09-14 00:13] LABS: PLATELET COUNT, AUTOMATED 60 10^3/uL (150-450)
[2019-09-14 00:42] LABS: BLOOD UREA NITROGEN 24 MG/DL (7-18); CALCIUM LEVEL 8.2 MG/DL (8.8-10.2); CARBON DIOXIDE LEVEL 29 MEQ/L (21-32); CHLORIDE LEVEL 112 MEQ/L (98-107); CK-MB VALUE MASS < 1.0 NG/ML (<3.6); CPK CREATINE PHOSPHOKINASE 90 U/L (26-192); CREATININE FOR GFR 0.79 MG/DL (0.55-1.30); GLOMERULAR FILTRATION RATE > 60.0 (>45); GLUCOSE, FASTING 90 MG/DL (70-100); MB/CK RELATIVE INDEX 1.11 (< OR =4); NT-PRO BNP 242 PG/ML (<125); POTASSIUM SERUM 4.2 MEQ/L (3.5-5.1); SODIUM LEVEL 144 MEQ/L (136-145); TROPONIN I < 0.02 NG/ML (< 0.10)
[2019-09-14 04:15] VITALS: BP 123/60
[2019-09-14] MEDS ORDERED: PRED20TA PO (04:21)
--- NOTE | 2019-09-14 06:36 | REP ---
Clinical: Cough and dyspnea . Comparison: 08/23/2019 . Technique: ap and lateral. Findings: Examination is limited by technique. No obvious focal consolidation or effusion. Impression: 1. No acute cardiopulmonary process. Electronically Signed by Jamar Paredes MD 09/14/2019 06:27 A
--- NOTE | 2019-09-14 15:20 | ECGEPIP ---
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
== END 2019-09-14 04:59 | disposition home or self-care (01) ==
LOC: M ED 21:28
DX: R06.00 Dyspnea, unspecified (principal); R94.31 Abnormal electrocardiogram [ECG] [EKG]; I11.0 Hypertensive heart disease with heart failure; I50.9 Heart failure, unspecified; J44.9 Chronic obstructive pulmonary disease, unspecified; F33.9 Major depressive disorder, recurrent, unspecified; Z79.890 Hormone replacement therapy; Z79.899 Other long term (current) drug therapy; Z88.0 Allergy status to penicillin; Z88.8 Allergy status to other drugs, medicaments and biological substances; Z88.5 Allergy status to narcotic agent; Z88.1 Allergy status to other antibiotic agents
CPT/HCPCS: 36600; 71046; 80048; 82550; 82553; 82803; 83605; 83880; 85025; 85049; 85055; 87040; 87486; 87581; 87633; 87798; 93005; 93041; 94640; 96374; 99285; J2930

== ENCOUNTER → 2019-09-28 | Outpatient (CLI) | payer OTHER ==
[~2019-09-28] MED LIST changes: +BISO5TAB14 PO; -BISO5TAB9 PO
--- NOTE | 2019-09-28 09:41 | REP ---
LEFT UPPER QUADRANT ULTRASOUND: Real-time sonographic evaluation of the left upper quadrant performed. The spleen is significantly enlarged. It measures 16.7 x 7.6 x 14.6 cm. Splenic index is 1853. There is no intrinsic mass. There are vascular calcifications in the spleen. Left kidney is normal in size and echotexture with no hydronephrosis measuring 10.4 cm in length. There is no free fluid in the left upper quadrant. IMPRESSION: Moderate splenomegaly as discussed above. Electronically Signed by Alejandro Coleman MD 10/03/2019 09:33 A
== END ==
LOC: M RAD 08:29
PROVIDERS: ATTEND Internal Medicine Hematology & Oncology
DX: R16.1 Splenomegaly, not elsewhere classified (principal); D64.9 Anemia, unspecified

== ENCOUNTER → 2019-10-10 | Outpatient (CLI) | payer OTHER ==
[2019-10-10 14:27] LABS: BASO % 0.5 % (0.0-1.0); EOS # 0.2 10^3/uL (0.0-0.5); HEMATOCRIT 36.1 % (36.0-47.0); HEMOGLOBIN 10.1 g/dl (12.0-15.5); LYMPH % 26.1 % (24.0-44.0); MEAN CORPUSCULAR HEMOGLOBIN 25.3 pg (27.0-33.0); MEAN CORPUSCULAR VOLUME 90.3 fl (80.0-96.0); MONO # 0.2 10^3/uL (0.0-0.8); MONO % 5.5 % (0.0-5.0); NEUTROPHILS # 2.5 10^3/uL (1.5-8.5); NEUTROPHILS % 63.6 % (36.0-66.0)
[2019-10-10 14:30] LABS: PLATELET COUNT, AUTOMATED 85 10^3/uL (150-450)
[2019-10-10 14:36] LABS: INR 1.17; PROTHROMBIN TIME 14.6 SECONDS (11.8-14.0)
[2019-10-10 14:37] LABS: PARTIAL THROMBOPLASTIN TIME 29.7 SECONDS (25.0-38.4)
[2019-10-10 14:48] LABS: BLOOD UREA NITROGEN 17 MG/DL (7-18); CREATININE FOR GFR 0.83 MG/DL (0.55-1.30); GLOMERULAR FILTRATION RATE > 60.0 (>45)
== END ==
LOC: M LAB 13:54
PROVIDERS: ATTEND Internal Medicine Gastroenterology
DX: K31.811 Angiodysplasia of stomach and duodenum with bleeding (principal)

== ENCOUNTER → 2019-10-10 | Outpatient (CLI) | payer OTHER ==
[2019-10-10 15:02] LABS: BLOOD UREA NITROGEN 17 MG/DL (7-18); CALCIUM LEVEL 9.3 MG/DL (8.8-10.2); CARBON DIOXIDE LEVEL 25 MEQ/L (21-32); CHLORIDE LEVEL 112 MEQ/L (98-107); CREATININE FOR GFR 0.92 MG/DL (0.55-1.30); GLOMERULAR FILTRATION RATE > 60.0 (>45); GLUCOSE, FASTING 103 MG/DL (70-100); POTASSIUM SERUM 4.4 MEQ/L (3.5-5.1); SODIUM LEVEL 143 MEQ/L (136-145)
== END ==
LOC: M LAB 13:50
PROVIDERS: ATTEND Nurse Practitioner Family
DX: E03.9 Hypothyroidism, unspecified (principal); G62.9 Polyneuropathy, unspecified

== ENCOUNTER → 2019-10-30 | Outpatient (CLI) | payer OTHER ==
--- NOTE | 2019-10-30 13:53 | REP ---
Clinical: Follow up abnormal lung findings. Comparison: 04/06/2019. Findings: Scarring / chronic changes primarily noted in the right middle lobe, and left base remain stable. No new acute nodule/consolidation or mass lesion. No pleural effusion. No pneumothorax. Mediastinum demonstrates stable atherosclerotic changes to the thoracic aorta. No significant adenopathy. Musculoskeletal structures demonstrate age-related changes without acute focal abnormality. Impression: 1. Scarring and chronic changes primarily involving the right middle lobe and left base remain stable. 2. No new acute mediastinal or pleuroparenchymal process appreciated. Electronically Signed by Jamar Paredes MD 10/30/2019 01:45 P
== END ==
LOC: M RAD 13:07
PROVIDERS: ATTEND Internal Medicine Hematology & Oncology
DX: R91.8 Other nonspecific abnormal finding of lung field (principal)

== ENCOUNTER 2019-11-17 23:30 | Emergency (ER) | payer OTHER ==
[~2019-11-17] VITALS: Ht 162.6 cm; Wt 145.4 kg
[~2019-11-17 23:30] MED LIST changes: +LEVA1TAB2 PO
[2019-11-18] MEDS ORDERED: fentaNYL 100 MCG/2 ML INJECTION (J3010) IV ONE (00:15)
[2019-11-18] MEDS ORDERED: NS 1,000 ML IV ONE (00:15)
[2019-11-18 01:17] LABS: BASO % 1.1 % (0.0-1.0); EOS # 0.5 10^3/uL (0.0-0.5); EOS % 12.4 % (0.0-3.0); HEMOGLOBIN 12.4 g/dl (12.0-15.5); LYMPH # 0.8 10^3/uL (1.5-5.0); LYMPH % 21.8 % (24.0-44.0); MEAN CORPUSCULAR HEMOGLOBIN 29.7 pg (27.0-33.0); MEAN CORPUSCULAR HGB CONC 30.2 g/dl (32.0-36.5); MEAN CORPUSCULAR VOLUME 98.3 fl (80.0-96.0); MONO # 0.2 10^3/uL (0.0-0.8); MONO % 6.5 % (0.0-5.0); NEUTROPHILS # 2.2 10^3/uL (1.5-8.5); NEUTROPHILS % 57.9 % (36.0-66.0); RED BLOOD COUNT 4.17 10^6/uL (4.00-5.40); WHITE BLOOD COUNT 3.7 10^3/uL (4.0-10.0)
[2019-11-18 01:32] LABS: PLATELET COUNT, AUTOMATED 73 10^3/uL (150-450)
[2019-11-18] MEDS ORDERED: ISOVUE-370 76% 100ML VIAL (Q9967) As Ordered ONE (01:47)
[2019-11-18 01:52] LABS: ALBUMIN 3.3 GM/DL (3.2-5.2); BILIRUBIN,DIRECT 0.2 MG/DL (0.0-0.2); BILIRUBIN,TOTAL 0.5 MG/DL (0.2-1.0); TOTAL PROTEIN 6.2 GM/DL (6.4-8.2)
[2019-11-18] MEDS ORDERED: IPRATROPIUM 0.5MG/ALBUTEROL 2.5MG INH SOL UD 3ML (DUONEB)(J7620) NEB ONE (03:45)
--- NOTE | 2019-11-18 04:03 | REPVR ---
PROCEDURE INFORMATION: Exam: CT Abdomen And Pelvis With Contrast Exam date and time: 11/18/2019 3:17 AM Age: 64 years old Clinical indication: Abdominal pain; Localized; Right upper quadrant (ruq); Additional info: Ruq pain TECHNIQUE: Imaging protocol: Computed tomography of the abdomen and pelvis with intravenous contrast. Radiation optimization: All CT scans at this facility use at least one of these dose optimization techniques: automated exposure control; mA and/or kV adjustment per patient size (includes targeted exams where dose is matched to clinical indication); or iterative reconstruction. Contrast material: ISOVUE 370; Contrast volume: 100 ml; Contrast route: IV; COMPARISON: Abdomen, limited US 09/28/2019 8:51 AM FINDINGS: Lungs: Minimal bibasilar fibro-atelectatic change and question of minimal infiltrates, left greater than right. Liver: Nodular surface of the liver. Gallbladder and bile ducts: Status post cholecystectomy. Pancreas: Normal. No ductal dilation. Spleen: The spleen measures 14.6 cm and demonstrates a rounded calcification. Adrenals: Normal. No mass. Kidneys and ureters: Normal. No hydronephrosis. Stomach and bowel: Mild stool throughout the colon. Appendix: There are no changes of appendicitis. A normal appendix is not seen. Intraperitoneal space: Unremarkable. No free air. No significant fluid collection. Vasculature: There is an IVC filter in position. Lymph nodes: Unremarkable. No enlarged lymph nodes. Bladder: Minimal gas in the urinary bladder. Reproductive: Status post hysterectomy. Bones/joints: Increased lumbar lordosis with central compression of L3 and decreased height of L5 which appear to be chronic. There is lower lumbar facet arthropathy with slight anterolisthesis of L4 relative to L5. Soft tissues: Status post ventral wall hernia repair with mesh. Subcutaneous induration in the right flank. IMPRESSION: 1. Hepatic cirrhosis with splenomegaly. 2. IVC filter in position. 3. There has been prior cholecystectomy and hysterectomy. 4. Minimal gas in the urinary bladder which may reflect recent catheterization. 5. Minimal bibasilar fibro-atelectatic change and question of minimal infiltrate, particularly in the left lower lobe. Electronically signed by: Ed Kamara On 11/18/2019 04:02:59 AM
[2019-11-18] MEDS ORDERED: LEVA750T7 PO (06:26)
[2019-11-18] MEDS ORDERED: LevoFLOXacin 750 MG TABLET PO ONE (06:30)
[2019-11-18 06:39] VITALS: BP 107/60
--- NOTE | 2019-11-18 09:11 | REP ---
Chest x-ray: Two views. History: Abdomen pain. Comparison chest x-ray September 13, 2019. Findings: Mild cardiomegaly is observed. There is infrahilar linear opacity consistent with fibrosis. There is parenchymal opacity in the right lung base medially along the right heart border consistent with an infiltrate in the right base, probably lower lobe. This is unchanged from August 25, 2009 study and is apparently chronic change. There are clips in the upper abdomen. No new infiltrate is seen. Pleural angles are sharp. Pulmonary vasculature is not increased. Impression: Increased markings again noted in the right base medially. No new infiltrate. Electronically Signed by Prosper Mo MD 11/18/2019 09:58 A
--- NOTE | 2019-11-20 11:42 | ED PDOC ---
Post-Departure Follow-Up krystal darnell faxed formal report of ct abd/p for fu Haven Castaneda MD Nov 20, 2019 11:42
== END 2019-11-18 06:59 | disposition home or self-care (01) ==
LOC: M ED 23:30
DX: J18.9 Pneumonia, unspecified organism (principal); K21.9 Gastro-esophageal reflux disease without esophagitis; K57.90 Diverticulosis of intestine, part unspecified, without perforation or abscess without bleeding; K74.60 Unspecified cirrhosis of liver; R16.1 Splenomegaly, not elsewhere classified; J45.909 Unspecified asthma, uncomplicated; Z86.718 Personal history of other venous thrombosis and embolism; Z88.1 Allergy status to other antibiotic agents; Z88.6 Allergy status to analgesic agent; Z88.8 Allergy status to other drugs, medicaments and biological substances
CPT/HCPCS: 71046; 74177; 80047; 80076; 81001; 83690; 85025; 85049; 85055; 87086; 94640; 96361; 96374; 99284; J3010; Q9967

== ENCOUNTER → 2020-02-05 | Outpatient (CLI) | payer OTHER ==
[~2020-02-05] MED LIST changes: +COLA100C5 PO; +CYCL-707 PO; -CYCL10TA PO; +FERR325T3 PO; +LEVA750T7 PO
[2020-02-05 17:36] LABS: BASO % 0.6 % (0.0-1.0); EOS # 0.2 10^3/uL (0.0-0.5); EOS % 6.3 % (0.0-3.0); HEMOGLOBIN 13.5 g/dl (12.0-15.5); LYMPH # 0.8 10^3/uL (1.5-5.0); LYMPH % 22.5 % (24.0-44.0); MEAN CORPUSCULAR HEMOGLOBIN 31.7 pg (27.0-33.0); MEAN CORPUSCULAR HGB CONC 32.9 g/dl (32.0-36.5); MEAN CORPUSCULAR VOLUME 96.2 fl (80.0-96.0); MONO # 0.3 10^3/uL (0.0-0.8); NEUTROPHILS # 2.2 10^3/uL (1.5-8.5); NEUTROPHILS % 62.3 % (36.0-66.0); RED BLOOD COUNT 4.26 10^6/uL (4.00-5.40); WHITE BLOOD COUNT 3.5 10^3/uL (4.0-10.0)
[2020-02-05 18:01] LABS: PLATELET COUNT, AUTOMATED 50 10^3/uL (150-450)
[2020-02-05 18:07] LABS: PERCENT SATURATION 53.7 % (13.2-45.0)
== END ==
LOC: M LAB 16:41
PROVIDERS: ATTEND Internal Medicine Hematology & Oncology
DX: D50.9 Iron deficiency anemia, unspecified (principal)

== ENCOUNTER → 2020-02-13 | Outpatient (CLI) | payer OTHER ==
[~2020-02-13] MED LIST changes: +D-40TAB2 PO; +DOK1CAP7 PO; +LEVO500T3 PO
[2020-02-13 11:02] LABS: BASO % 0.3 % (0.0-1.0); EOS # 0.2 10^3/uL (0.0-0.5); EOS % 5.7 % (0.0-3.0); HEMATOCRIT 41.2 % (36.0-47.0); HEMOGLOBIN 13.2 g/dl (12.0-15.5); LYMPH # 0.7 10^3/uL (1.5-5.0); LYMPH % 20.2 % (24.0-44.0); MEAN CORPUSCULAR HEMOGLOBIN 31.7 pg (27.0-33.0); MEAN CORPUSCULAR VOLUME 98.8 fl (80.0-96.0); MONO # 0.2 10^3/uL (0.0-0.8); MONO % 6.5 % (0.0-5.0); NEUTROPHILS # 2.3 10^3/uL (1.5-8.5); RED BLOOD COUNT 4.17 10^6/uL (4.00-5.40); WHITE BLOOD COUNT 3.4 10^3/uL (4.0-10.0)
[2020-02-13 11:05] LABS: PLATELET COUNT, AUTOMATED 63 10^3/uL (150-450)
[2020-02-13 11:15] LABS: INR 1.22; PARTIAL THROMBOPLASTIN TIME 30.4 SECONDS (25.0-38.4); PROTHROMBIN TIME 15.1 SECONDS (11.8-14.0)
[2020-02-13 11:31] LABS: BLOOD UREA NITROGEN 17 MG/DL (7-18); CREATININE FOR GFR 0.74 MG/DL (0.55-1.30); FERRITIN 19 NG/ML (8-252); GLOMERULAR FILTRATION RATE > 60.0 (>45); IRON (FE) 127 UG/DL (50-170); PERCENT SATURATION 36.8 % (13.2-45.0); TOTAL IRON BINDING CAPACITY 345 UG/DL (250-450)
[2020-02-13 11:37] LABS: HEPATITIS B SURFACE ANTIBODY NEGATIVE (POSITIVE)
--- NOTE | 2020-02-14 06:57 | REP ---
Clinical: Cirrhosis. Technique: Real time love scale ultrasound examination using curved array transducer. Comparison: 08/17/2019 Findings: Liver demonstrates coarsened echotexture and subtle nodular contour without obvious focal hepatic lesion identified. Visualized portions of the pancreas are normal but limited due to interposed bowel gas. The patient is status post cholecystectomy. No biliary ductal dilatation is appreciated and the common bile duct measures 5.8 mm diameter. The right kidney is normal in reniform shape without hydronephrosis and measures 10.0 x 5.4 x 5.4 cm. No ascites in the visualized right upper quadrant. Impression: Coarsened hepatic echotexture consistent with the given history of cirrhosis. No focal hepatic lesion identified. Electronically Signed by Jamar Paredes MD 02/14/2020 06:48 A
== END ==
LOC: M RAD 08:43
PROVIDERS: ATTEND Internal Medicine Gastroenterology
DX: K31.811 Angiodysplasia of stomach and duodenum with bleeding (principal); K74.69 Other cirrhosis of liver

== ENCOUNTER 2020-02-15 15:16 | Inpatient (IN) | payer OTHER ==
[~2020-02-15] VITALS: Ht 162.6 cm; Wt 155.3 kg
[~2020-02-15 15:16] MED LIST changes: -D-40TAB2 PO; -DOK1CAP7 PO; -LEVO500T3 PO
[2020-02-15 16:06] LABS: ABG BASE EXCESS -1.9 (-2.0-2.0); ABG HCO3 22.2 MEQ/L (22.0-26.0); ABG O2 SATURATION 91.7 % (95.0-99.0); ABG PARTIAL PRESSURE CO2 35.8 mmHg (35.0-45.0); ABG PARTIAL PRESSURE O2 62.8 mmHg (75.0-100.0); ABG STANDARD HCO3 22.8 MEQ/L (22.0-26.0); ABG TOTAL CO2 23.3 MEQ/L (23.0-31.0); ABG pH (ARTERIAL) 7.411 UNITS (7.350-7.450)
[2020-02-15 16:32] LABS: BASO % 0.4 % (0.0-1.0); EOS # 0.1 10^3/uL (0.0-0.5); EOS % 3.6 % (0.0-3.0); HEMATOCRIT 36.7 % (36.0-47.0); LYMPH # 0.5 10^3/uL (1.5-5.0); LYMPH % 21.1 % (24.0-44.0); MEAN CORPUSCULAR HEMOGLOBIN 31.8 pg (27.0-33.0); MEAN CORPUSCULAR HGB CONC 32.7 g/dl (32.0-36.5); MEAN CORPUSCULAR VOLUME 97.3 fl (80.0-96.0); MONO # 0.2 10^3/uL (0.0-0.8); MONO % 8.4 % (0.0-5.0); NEUTROPHILS # 1.7 10^3/uL (1.5-8.5); NEUTROPHILS % 66.1 % (36.0-66.0); RED BLOOD COUNT 3.77 10^6/uL (4.00-5.40); WHITE BLOOD COUNT 2.5 10^3/uL (4.0-10.0)
[2020-02-15 16:38] LABS: PLATELET COUNT, AUTOMATED 46 10^3/uL (150-450)
[2020-02-15 17:07] LABS: ALBUMIN 3.1 GM/DL (3.2-5.2); ALT/SGPT 17 U/L (12-78); BILIRUBIN,DIRECT 0.3 MG/DL (0.0-0.2); BLOOD UREA NITROGEN 22 MG/DL (7-18); CALCIUM LEVEL 8.9 MG/DL (8.8-10.2); CARBON DIOXIDE LEVEL 29 MEQ/L (21-32); CHLORIDE LEVEL 110 MEQ/L (98-107); CK-MB VALUE MASS < 1.0 NG/ML (<3.6); CPK CREATINE PHOSPHOKINASE 45 U/L (26-192); GLOMERULAR FILTRATION RATE > 60.0 (>45); GLUCOSE, FASTING 86 MG/DL (70-100); MB/CK RELATIVE INDEX 2.22 (< OR =4); NT-PRO BNP 89 PG/ML (<125); POTASSIUM SERUM 4.5 MEQ/L (3.5-5.1); SODIUM LEVEL 143 MEQ/L (136-145); TOTAL PROTEIN 5.6 GM/DL (6.4-8.2); TROPONIN I < 0.02 NG/ML (< 0.10)
[2020-02-15] MEDS ORDERED: ISOVUE-370 76% 100ML VIAL As Ordered ONE (17:49)
--- NOTE | 2020-02-15 19:12 | REPVR ---
PROCEDURE INFORMATION: Exam: US Duplex Lower Extremity Veins, Bilateral Exam date and time: 02/15/2020 6:30 PM Age: 64 years old Clinical indication: Pain; Leg, lower; Bilateral; Additional info: Leg pain R/O dvt TECHNIQUE: Imaging protocol: Real-time duplex ultrasound of the extremities with 2-D love scale, color Doppler flow and spectral waveform analysis with image documentation. Complete exam focused on the bilateral lower extremity veins. COMPARISON: No relevant prior studies available. FINDINGS: Right deep veins: The common femoral, femoral, proximal profunda femoral and popliteal veins are patent without occlusive thrombus. Compressibility images are limited. Normal augmentation response. Right superficial veins: Saphenofemoral junction is patent without thrombus. Limited evaluation. Left deep veins: The common femoral, femoral, proximal profunda femoral and popliteal veins are patent without occlusive thrombus. Compressibility images are limited. Normal augmentation response. Left superficial veins: Saphenofemoral junction is patent without thrombus. Limited evaluation. Soft tissues: Unremarkable. IMPRESSION: No evidence of occlusive deep venous thrombosis from the common femoral to the popliteal veins bilaterally. Electronically signed by: Suleiman Oropeza On 02/15/2020 19:11:54 PM
--- NOTE | 2020-02-15 20:02 | REPVR ---
PROCEDURE INFORMATION: Exam: CT Angiography Chest With Contrast Exam date and time: 02/15/2020 7:04 PM Age: 64 years old Clinical indication: Shortness of breath; Additional info: SOB, hypoxia TECHNIQUE: Imaging protocol: Computed tomographic angiography of the chest with intravenous contrast. 3D rendering: MIP and/or 3D reconstructed images were created by the technologist. Radiation optimization: All CT scans at this facility use at least one of these dose optimization techniques: automated exposure control; mA and/or kV adjustment per patient size (includes targeted exams where dose is matched to clinical indication); or iterative reconstruction. Contrast material: ISOVUE 370; Contrast volume: 75 ml; Contrast route: IV; COMPARISON: CT Chest without contrast 10/30/2019 1:22 PM FINDINGS: Pulmonary arteries: The main pulmonary trunk, right/left main pulmonary arteries, and the proximal lobar branches demonstrate no definite intraluminal filling defect to suggest pulmonary embolism. There is suboptimal evaluation of segmental/subsegmental pulmonary arteries due to artifact. Aorta: Artifact limits evaluation of the ascending aorta. No aneurysm or dissection of the remaining thoracic aorta. Lungs: Increased interstitial markings and patchy nonspecific ground-glass density identified within the right lower lobe and left lung, new compared to the prior study. Differential considerations include interstitial edema, atypical infection, and pneumonitis. Stable bands of atelectatic change or parenchymal scarring are identified within the right middle lobe and right upper lobe. Additional atelectatic change is identified in the left upper lobe of the lung. No lung mass. Pleural space: No pneumothorax. No pleural effusion. Heart: Mild cardiomegaly. Lymph nodes: Small mediastinal and bilateral hilar lymph nodes are identified, which are nonspecific. Gallbladder and bile ducts: Surgical clips are identified within the gallbladder fossa, compatible with cholecystectomy. Pancreas: Atrophy of the pancreas. Spleen: Splenomegaly. A peripherally calcified splenic artery aneurysm is identified measuring 1.2 cm in diameter. A peripherally calcified lesion is again visualized within the spleen measuring 1.1 cm, without progression. The spleen extends out of the field of view of this study. Bones/joints: Hypertrophic degenerative changes are noted within the spine. There is an old fracture of the anterior left 6th rib. Stable abnormal morphology of the right 6th rib, which is likely developmental or due to prior trauma. Soft tissues: Soft tissue swelling is identified lateral to the left abdominal wall. IMPRESSION: 1. The main pulmonary trunk, right/left main pulmonary arteries, and the proximal lobar branches demonstrate no definite intraluminal filling defect to suggest pulmonary embolism. There is suboptimal evaluation of segmental/subsegmental pulmonary arteries due to artifact. 2. Increased interstitial markings and patchy nonspecific ground-glass density identified within the right lower lobe and left lung, new compared to the prior study. Differential considerations include interstitial edema, atypical infection, and pneumonitis. Clinical correlation recommended. 3. Stable bands of atelectatic change or parenchymal scarring are identified within the right middle lobe and right upper lobe. Additional atelectatic change is identified in the left upper lobe of the lung. 4. Mild cardiomegaly. 5. Splenomegaly. A peripherally calcified splenic artery aneurysm is identified measuring 1.2 cm in diameter. A peripherally calcified lesion is again visualized within the spleen measuring 1.1 cm, without progression. 6. Additional findings described above. Electronically signed by: Suleiman Oropeza On 02/15/2020 20:02:01 PM
--- NOTE | 2020-02-15 21:15 | ECGEPIP ---
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
[2020-02-15] MEDS ORDERED: LevoFLOXacin IV 750 MG in IV 1 EA IV ONE (22:15)
[2020-02-15] MEDS ORDERED: FUROSEMIDE 40MG/4ML VIAL (J1940) IV ONE (22:15)
[2020-02-15] MEDS ORDERED: D-40TAB2 PO (22:40)
[2020-02-15] MEDS ORDERED: DOK1CAP7 PO (22:40)
[2020-02-15] MEDS ORDERED: BISO5TAB14 PO (22:40)
[2020-02-15] MEDS ORDERED: FERR325T3 PO (22:40)
[2020-02-15] MEDS ORDERED: MOM 30ML SUSPENSION UDC PO PRN (23:15)
[2020-02-15] MEDS ORDERED: ACETAMINOPHEN TAB 650MG DOSE (2X325MG) PO PRN (23:15)
[2020-02-15] MEDS ORDERED: MAALOX 30 ML SUSP *UDC PO PRN (23:15)
[2020-02-15] MEDS ORDERED: IPRATROPIUM 0.5MG/ALBUTEROL 2.5MG INH SOL UD 3ML (DUONEB)(J7620) INH PRN (23:30)
--- NOTE | 2020-02-15 23:56 | HPEPDOC ---
General Date of Admission Feb 15, 2020 at 23:13 Date of Service: Feb 15, 2020 Chief Complaint The patient is a 64-year-old female admitted with a reason for visit of Pneumonia. Source: Patient Exam Limitations: No limitations Timing/Duration: Other (transfer from PMDs office with a low pulse ox and costochondritis/chest pain) Severity: Other (not applicable) Associated Symptoms: Chest Pain, Other (low pulse ox) History of Present Illness This is a 64 years old, obese, white female past medical history of multiple medical problems including alpha-1 antitrypsin deficiencyNASH, unclassified type and acuity of congestive heart failure, pancytopenia, neuropathy, recurrent GI bleed, rectal fissures, prepyloric erosions, hiatal hernia, antral gastritis, antral ulcers. Distal esophagitis, multiple AVMs gastric antral vascular ectasia, GERD, irritable bowel syndrome, optic migraines, dyslipidemia, chronic depression, vitamin B12 deficiency, seizure disorder, DVT in the past and status post IVC filter, history of CVA with the transit left-sided weakness, morbid obesity, phosphorus transfer her physician, Dr. Yun turns office with a low pulse ox of 83-85, and patient also complained of a chest pain, abdominal pain, left upper quadrant and left flank pain since last 2 weeks. Chest pain is midsternal reproducible on examination, nonradiating, persistent. No relief with meds, not exacerbated by any position or breathing and abdominal pain is nonspecific nonradiating, persistent. Dilantin neck character. When interviewed patient in ED, she is still complains of dull abdominal pain and pain all over the chest wall on palpation. Home Medications Scheduled Bisoprolol Fumarate (Bisoprolol Fumarate) 5 Mg Tablet, 5 MG PO BID, (Reported) Calcium Carbonate (Calcium) 600 Mg Tablet, 600 MG PO QHS, (Reported) Cholecalciferol (Vitamin D3) (Vitamin D-400) 10 Mcg Tablet, 400 UNITS PO QHS, (Reported) Cyanocobalamin (Vitamin B-12) (Vitamin B-12) 1,000 Mcg Tablet, 1,000 MCG PO QHS, (Reported) Ferrous Sulfate (Ferrous Sulfate) 325 Mg Tablet.dr, 325 MG PO TID, (Reported) Gabapentin (Gabapentin) 800 Mg Tablet, 800 MG PO BID, (Reported) Gabapentin (Gabapentin) 400 Mg Capsule, 400 MG PO DAILY, (Reported) AFTERNOON Levothyroxine Sodium (Levothyroxine Sodium) 88 Mcg Tablet, 88 MCG PO DAILY, (Reported) Pantoprazole Sodium (Pantoprazole Sodium) 40 Mg Tablet.dr, 40 MG PO BID, (Reported) Potassium Chloride (Potassium Chloride) 20 Meq Tab.er.prt, 20 MEQ PO QHS, (Reported) Spironolactone (Spironolactone) 25 Mg Tablet, 25 MG PO QHS, (Reported) Torsemide (Torsemide) 20 Mg Tablet, 20 MG PO BID, (Reported) 0900, 1500 Trazodone HCl (Trazodone HCl) 150 Mg Tablet, 150 MG PO QHS, (Reported) Venlafaxine HCl (Venlafaxine HCl ER) 75 Mg Cap.er.24h, 75 MG PO DAILY, (Reported) Venlafaxine HCl (Venlafaxine HCl ER) 75 Mg Cap.er.24h, 150 MG PO QHS, (Reported) Vitamin B Complex (Vitamin B Complex) 1 Each Tablet, 1 TAB PO DAILY, (Reported) Scheduled PRN Cyclobenzaprine HCl (Cyclobenzaprine HCl) 10 Mg Tablet, 10 MG PO TID PRN for MUSCLE SPASMS, (Reported) Docusate Sodium (Dok) 100 Mg Capsule, 100 MG PO BID PRN for CONSTIPATION, (Reported) Ipratropium/Albuterol Sulfate (Iprat-Albut 0.5-3(2.5) mg/3 ml) 3 Ml Ampul.neb, 1 INH INH Q6H PRN for SHORTNESS OF BREATH, (Reported) Simethicone (Gas-X) 125 Mg Capsule, 125 MG PO ACHS PRN for GAS PAIN, (Reported) Allergies Coded Allergies: hydromorphone (Verified Allergy, Mild, itching, 08/24/19) naloxone (Verified Allergy, Unknown, sz, 11/17/19) codeine (Verified Adverse Reaction, Intermediate, CHESP PAIN, 08/03/19) ibuprofen (Verified Adverse Reaction, Intermediate, JOINT/ MUSCLE PAIN, 08/03/19) pregabalin (Verified Adverse Reaction, Intermediate, chest pain, 08/03/19) amoxicillin (Verified Adverse Reaction, Mild, vomiting and diarrhea, 08/03/19) clavulanic acid (Verified Adverse Reaction, Mild, vomiting and diarrhea, 08/03/19) erythromycin base (Verified Adverse Reaction, Mild, vomting diarrhea, 08/03/19) Past Medical History Medical History Alpha-1 antitrypsin deficiencyNASH, unclassified type and acuity of congestive heart failure, pancytopenia, neuropathy, recurrent GI bleed, rectal fissures, prepyloric erosions, hiatal hernia, antral gastritis, antral ulcers. Distal esophagitis, multiple AVMs gastric antral vascular ectasia, GERD, irritable bowel syndrome, optic migraines, dyslipidemia, chronic depression, vitamin B12 deficiency, seizure disorder, DVT in the past and status post IVC filter, history of CVA with the transit left-sided weakness, morbid obesity Surgical History Tonsillectomy, adenoidectomy, appendectomy, C-sections 2, tubal ligation, laparoscopy secondary to pelvic pain and bleed, partial hysterectomy, left ovarian cystectomy 2, cholecystectomy, hemorrhoidectomy, abdominal incarcerated hernia repair, colostomy replacement and reversal, rectal fissurectomy with double his skin graft, ventral mid and upper abdominal hernia status post mesh placement Family History According to patient, her father had a breast cancer and mother had Ariana Gehrig's disease and her one brother is is officially in his stomach and Social History * Smoker: Denies Alcohol: Denies Drugs: denies A-FIB/CHADSVASC A-FIB History Current/History of A-Fib/PAF?: No Review of Systems Constitutional: Reports: Malaise, Weakness, Fatigue Eyes: Denies: Pain, Vision change, Conjunctivae inflammation, Eyelid in flammation, Redness, Other ENT: Denies: Head Aches, Ear Pain, Dysphagia, Sinus Congestion, Post Nasal Drip, Sore Throat, Epistaxis, Other Symptoms Skin: Denies: Rash, Lesions, Jaundice, Bruising, Itching, Dry, Breakdown, Nail Changes, Other Pulmonary: Reports: Other Symptoms (, mild dyspnea all the time) Cardiovascular: Reports: Other Symptoms (, chest pain on palpation. Palpation of the chest wall) Gastrointestinal: Reports: Abdominal Pain (, nonspecific abdominal pain) Genitourinary: Reports: Other Symptoms Hematologic: Denies: Bruising, Bleeding Excessively, Petecchia, Purpura, Enlarged Lymph Nodes, Other Hematologic Endocrine: Denies: Polydipsia, Polyphagia, Polyuria, Heat Intolerance, Cold Intolerance, Other Endocrine Sx Musculoskeletal: Denies: Neck Pain, Back Pain, Shoulder Pain, Arm Pain, Hand Pain, Leg Pain, Foot Pain, Joint Pain, Muscle Pain, Spasms, Other Symptoms Neurological: Denies: Weakness, Numbness, Incoordination, Change in speech, Confusion, Seizures, Other Symptoms Psych: Denies: Mood Normal, Anxiety, Depression, Memory Issues, Thoughts of Self Harm, Anger, Thoughts of Harming Other, Other Psych Physical Examination General Exam: Positive: Alert, Cooperative Eye Exam: Positive: PERRLA, Conjunctiva & lids normal ENT Exam: Positive: Atraumatic, Mucous membr. moist/pink Neck Exam: Positive: Supple, thyromegaly Chest Exam: Positive: Other (. Very difficult to auscultate lung sounds secondary to body habitus, but no obvious use of accessory muscles or tachypnea or wheezing) Heart Exam: Positive: Rate Normal, Normal S1, Normal S2 Abdomen Exam: Positive: Normal bowel sounds, Soft Extremity Exam: Positive: Other (chronic nonpitting bipedal edema) Skin Exam: Positive: Nl turgor and temperature Neuro Exam: Positive: Strength at 5/5 X4 ext, Cranial Nerves 3-12 NL Psych Exam: Positive: Mood NL, Oriented x 3 Vital Signs Vital Signs Date Time Temp Pulse Resp B/P (MAP) Pulse Ox O2 Delivery O2 Flow Rate FiO2 02/15/20 21:46 55 96 02/15/20 21:45 156/75 (102) 02/15/20 20:46 20 Nasal Cannula 2.0 02/15/20 20:31 98.7 Laboratory Data Labs 24H Laboratory Tests 2 02/15/20 15:54: Blood Gas Bicarbonate Standard 22.8, Arterial Blood pH 7.411, Arterial Blood Partial Pressure CO2 35.8, Arterial Blood Partial Pressure O2 62.8L, Arterial Blood Total CO2 23.3, Arterial Blood HCO3 22.2, Arterial Blood Base Excess -1.9, Arterial Blood Oxygen Saturation 91.7L 02/15/20 16:23: D-Dimer, Quantitative 2185.96H 02/15/20 16:24: Immature Granulocyte % (Auto) 0.4, Neutrophils (%) (Auto) 66.1H, Lymphocytes (%) (Auto) 21.1L, Monocytes (%) (Auto) 8.4H, Eosinophils (%) (Auto) 3.6H, Basophils (%) (Auto) 0.4, Neutrophils # (Auto) 1.7, Lymphocytes # (Auto) 0.5L, Monocytes # (Auto) 0.2, Eosinophils # (Auto) 0.1, Basophils # (Auto) 0.0, Nucleated Red Blood Cells % (auto) 0.0, Immature Platelet Fraction 2.3, Anion Gap 4L, Glomerular Filtration Rate > 60.0, Calcium Level 8.9, Total Bilirubin 1.0, Direct Bilirubin 0.3H, Aspartate Amino Transf (AST/SGOT) 19, Alanine Aminotransferase (ALT/SGPT) 17, Alkaline Phosphatase 81, Total Creatine Kinase 45, Creatine Kinase MB < 1.0, Creatine Kinase MB Relative Index 2.22, Troponin I < 0.02, [id number]-Type Natriuretic Peptide 89, Total Protein 5.6L, Albumin 3.1L, Albumin/Globulin Ratio 1.2, Thyroid Stimulating Hormone (TSH) 0.890 CBC/BMP Laboratory Tests 02/15/20 16:24 Microbiology Microbiology 02/15/20 Blood Culture, Received Pending 02/15/20 Blood Culture, Received Pending 02/15/20 Respiratory Virus Panel (PCR) ([facility]O) - Final, Complete Problems (1) Pneumonia Status: Acute Problem Text: 64 years old white female with multiple medical problems at described above in history of present illness admitted this time with chief complaints of dyspnea, chest pain, abdominal pain, she was seen at her PCPs office and was diagnosed with costochondritis, but since her pulse ox was 83-84. She was transferred to the emergency room. In ED, patient had a CT of the chest done which showed no pulmonary embolus but groundglass density right lower lobe and left lung pneumonitis, questionable pneumonia, cardiomegaly, and splenomegaly Venous Doppler bilateral lower extremity did not show any DVT Chest x-ray consistent with cardiomegaly, possible pneumonia, possible pulmonary congestion EKG shows a sinus bradycardia, interventricular conduction delay but no acute ST-T changes . D-dimer is 2185 L in, 2.5, hemoglobin 12, platelets 46. Electrolytes are normal with BUN 22, creatinine 0.70 and BNP is only 89 Patient most likely has acute on chronic pneumonitis versus acute pneumonia at the right lower lobe and left lung Admit patient to PCU for further care with telemetry IV fluids normal saline 70 mL per hour Patient received 1 dose of Levaquin in ED and I will continue Levaquin 500 milligrams IV every 24 hours Continue patient's all home meds including DuoNeb Physical therapy evaluation in a.m. DVT prophylaxis with heparin Diet 2 g sodium Activity. At rest with bathroom privileges (2) Congestive heart failure Status: Acute Problem Text: Patient had echocardiogram done on August 2019 which showed ejection fraction 75%, mild left ventricular hypertrophy and hyperkinetic wall motion, but did not classify either systolic or diastolic pathology Patient again was diagnosed with possible congestive heart failure or of on this specific origin and class . She did receive 1 dose of Lasix 40 mg IV in ED . Her BNP is only 89, so I doubt there is any component of CHF . I will repeat a patient is a troponins and BNP in a.m. and will hold off on the diuretics Strict I and O's. Has been ordered (3) Thrombocytopenia Status: Acute Problem Text: Patient has a no evidence of any hemorrhage. Monitor patient's platelet levels and transfuse as needed (4) Iron deficiency anemia Status: Acute Problem Text: Continue home meds and iron supplement (5) [id number] deficiency Status: Chronic Problem Text: Continue home meds (6) Pancytopenia Status: Chronic Problem Text: History of chronic pancytopenia. Monitor clinically. , No further intervention at the present time (7) Morbid obesity Status: Chronic Problem Text: Secondary to increased calorie intake and sedentary lifestyle along with multiple medical conditions and medications causing weight gain Plan / VTE VTE Prophylaxis Ordered?: Yes HARMAN DIEHL MD Feb 15, 2020 23:56
[2020-02-16 00:40] VITALS: BP 154/68
[2020-02-16] MEDS: PANTOPRAZOLE 40MG TAB (PROTONIX) PO SCH ×3 (01:19→20:19)
[2020-02-16] MEDS: CYCLOBENZAPRINE 10MG TABLET PO PRN ×2 (01:19→15:15)
[2020-02-16] MEDS: CYANOCOBALAMIN 500 MCG TAB PO SCH ×2 (01:19→20:20)
[2020-02-16] MEDS: SPIRONOLACTONE 25 MG TAB PO SCH ×2 (01:19→20:20)
[2020-02-16] MEDS: VENLAFAXINE **XR** 75MG CAPSULE PO SCH ×3 (01:20→20:19)
[2020-02-16] MEDS: FERROUS SULFATE 325MG TAB PO SCH ×4 (01:20→20:19)
[2020-02-16] MEDS: bisoproloL fumarate 5 MG TAB PO SCH ×3 (01:20→20:20)
[2020-02-16] MEDS: traZODone 50 MG TAB PO SCH ×2 (01:20→20:19)
[2020-02-16] MEDS: VITAMIN D (CHOLECALCIFEROL) 400 INTERNATIONAL UNITS TAB PO SCH ×2 (01:21→21:00)
[2020-02-16] MEDS: GABAPENTIN 400 MG CAP PO SCH ×4 (01:21→20:20)
[2020-02-16] MEDS: POTASSIUM CHLORIDE 10 MEQ SR TABLET PO SCH ×2 (01:21→20:19)
[2020-02-16 04:00] VITALS: BP 121/79
[2020-02-16] MEDS: LEVOTHYROXINE 88MCG TABLET (0.088 MG) PO SCH (05:10)
[2020-02-16 05:27] LABS: HEMATOCRIT 38.4 % (36.0-47.0); HEMOGLOBIN 12.7 g/dl (12.0-15.5); MEAN CORPUSCULAR HGB CONC 33.1 g/dl (32.0-36.5); MEAN CORPUSCULAR VOLUME 96.7 fl (80.0-96.0); RED BLOOD COUNT 3.97 10^6/uL (4.00-5.40); WHITE BLOOD COUNT 3.1 10^3/uL (4.0-10.0)
[2020-02-16 05:29] LABS: PLATELET COUNT, AUTOMATED 52 10^3/uL (150-450)
[2020-02-16 05:53] LABS: ALBUMIN 3.4 GM/DL (3.2-5.2); ALT/SGPT 17 U/L (12-78); BLOOD UREA NITROGEN 17 MG/DL (7-18); CALCIUM LEVEL 9.1 MG/DL (8.8-10.2); CARBON DIOXIDE LEVEL 27 MEQ/L (21-32); CHLORIDE LEVEL 108 MEQ/L (98-107); CREATININE FOR GFR 0.76 MG/DL (0.55-1.30); GLOMERULAR FILTRATION RATE > 60.0 (>45); GLUCOSE, FASTING 76 MG/DL (70-100); MAGNESIUM LEVEL 1.7 MG/DL (1.8-2.4); NT-PRO BNP 93 PG/ML (<125); POTASSIUM SERUM 4.1 MEQ/L (3.5-5.1); SODIUM LEVEL 144 MEQ/L (136-145); TOTAL PROTEIN 6.3 GM/DL (6.4-8.2); TROPONIN I < 0.02 NG/ML (< 0.10)
--- NOTE | 2020-02-16 07:22 | IPNPDOC ---
Text Note Date of Service The patient was seen on 02/16/20. NOTE TIME OF SERVICE: 800AM Subjective: The patient reports that her dyspnea is better but she is c/o of back pain. Objective: GEN: NAD CVS: RRR/NMRG LUNGS: CTAB on RA NEURO: speech not dysarthric PSYCH: A&O Vitals and labs: see below Assessment: Ms. Saucedo is a 64 yr old w a PMH of alpha-1 antitrypsin deficiency with liver cirrhosis and pulmonary nodules, LISA, diastolic CHF, pancytopenia 2/2 splenomegaly from cirrhosis/portal hypertension, neuropathy, multiple AVMs, GAVE, GERD, IBS, optic migraines, dyslipidemia, chronic depression, seizure disorder, multiple DVTs in the past and placement of an IVC filter, history of CVA, & morbid obesity who is admitted for management of dyspnea 2/2 PNA vs Chronic Pneumonitis. Plan: 1. Acute Pneumonia vs Chronic Pneumonitis. Not sure if this is related to A1AT deficiency. - c/w Levaquin day #2, duonebs 2. Chronic Diastolic CHF. Based on the fact that her BMI is 59, she has a hx of afib, is older than 60 amd her her E/e ratio was 10 on her last Echo her H2FPEF score is 7. A H2FPEF score of 6 or more is associated with a greater than 90 % probability of HFpEF. -f/u Is and Os and daily weights / torsemide, 3. Pancytopenia. Leukopenia & Thrombocytopenia are improving. Anemia resolved in PO iron - trend CBC & c/w iron 4. Neuropathy - gabapentin 5. Dyslipidemia &hx of CVA - atorvastatin 6. Chronic depression - trazadone & venlafaxine 7. Morbid obesity with BMI of 59.8 complicates care. DVT Px w Heparin VS,Fishbone, I+O VS, Fishbone, I+O Laboratory Tests 02/15/20 16:24 02/16/20 04:33 02/16/20 04:34 Vital Signs Date Time Temp Pulse Resp B/P (MAP) Pulse Ox O2 Delivery O2 Flow Rate FiO2 02/16/20 04:00 2.0 02/16/20 04:00 96.3 60 18 121/79 (93) 96 Nasal Cannula I&O- Last 24 Hours up to 6 AM 02/16/20 06:00 Intake Total 100 ml Output Total 5000 ml Balance -4900 ml RACHELE KHAN MD Feb 16, 2020 07:22
[2020-02-16 08:00] VITALS: BP 124/58
[2020-02-16] MEDS: CALCIUM/VITAMIN D 500 MG TAB PO SCH (08:55)
[2020-02-16] MEDS: TORSEMIDE 20 MG TAB PO SCH ×2 (08:56→15:15)
[2020-02-16] MEDS: DOCUSATE SODIUM 100 MG CAP PO SCH ×2 (08:57→20:19)
[2020-02-16] MEDS: HEPARIN SOD (PORCINE) 5000UNITS/ML VIAL (J1644 PER 1000UNITS) SC SCH ×2 (08:58→20:21)
--- NOTE | 2020-02-16 10:55 | REP ---
CHEST, SINGLE VIEW: Single view of the chest is performed and compared to a prior study of 11/18/2019. There is cardiomegaly. There are fibrotic changes which are stable. There is elevation of the right hemidiaphragm. Mediastinal silhouette is unchanged. IMPRESSION: Cardiomegaly with chronic changes with no definite superimposed acute infiltrate. Unreviewed
[2020-02-16] MEDS ORDERED: MAGNESIUM OXIDE 400 MG TAB (MAG-OX) PO ONE (11:00)
[2020-02-16 12:00] VITALS: BP 115/55
[2020-02-16] MEDS: LIDOCAINE 5% (LIDODERM) PATCH TD PRN (15:16)
[2020-02-16 16:05] VITALS: BP 135/71
[2020-02-16] MEDS: LevoFLOXacin IV 500 MG in IV 1 EA IV SCH (20:21)
[2020-02-16] MEDS: **NOTE PATIENT COMMENT** MISC XX SCH (20:22)
[2020-02-16 22:00] VITALS: BP 108/60
[2020-02-17] MEDS: LEVOTHYROXINE 88MCG TABLET (0.088 MG) PO SCH (05:26)
[2020-02-17 06:00] VITALS: BP 107/62
[2020-02-17 07:02] LABS: BASO % 0.4 % (0.0-1.0); EOS # 0.1 10^3/uL (0.0-0.5); EOS % 4.8 % (0.0-3.0); HEMATOCRIT 34.7 % (36.0-47.0); HEMOGLOBIN 11.3 g/dl (12.0-15.5); LYMPH # 0.7 10^3/uL (1.5-5.0); LYMPH % 25.9 % (24.0-44.0); MEAN CORPUSCULAR HEMOGLOBIN 31.7 pg (27.0-33.0); MEAN CORPUSCULAR HGB CONC 32.6 g/dl (32.0-36.5); MEAN CORPUSCULAR VOLUME 97.5 fl (80.0-96.0); MONO # 0.2 10^3/uL (0.0-0.8); NEUTROPHILS # 1.5 10^3/uL (1.5-8.5); NEUTROPHILS % 60.5 % (36.0-66.0); RED BLOOD COUNT 3.56 10^6/uL (4.00-5.40); WHITE BLOOD COUNT 2.5 10^3/uL (4.0-10.0)
[2020-02-17 07:24] LABS: BLOOD UREA NITROGEN 19 MG/DL (7-18); CALCIUM LEVEL 8.8 MG/DL (8.8-10.2); CARBON DIOXIDE LEVEL 28 MEQ/L (21-32); CHLORIDE LEVEL 108 MEQ/L (98-107); CREATININE FOR GFR 0.77 MG/DL (0.55-1.30); GLOMERULAR FILTRATION RATE > 60.0 (>45); GLUCOSE, FASTING 79 MG/DL (70-100); POTASSIUM SERUM 3.9 MEQ/L (3.5-5.1); SODIUM LEVEL 141 MEQ/L (136-145)
[2020-02-17 07:25] LABS: PLATELET COUNT, AUTOMATED 42 10^3/uL (150-450)
[2020-02-17] MEDS: PANTOPRAZOLE 40MG TAB (PROTONIX) PO SCH ×2 (08:44→21:28)
[2020-02-17] MEDS: DOCUSATE SODIUM 100 MG CAP PO SCH ×2 (08:45→21:28)
[2020-02-17] MEDS: GABAPENTIN 400 MG CAP PO SCH ×3 (08:45→21:27)
[2020-02-17] MEDS: ATORVASTATIN 20 MG TAB PO SCH (08:45)
[2020-02-17] MEDS: FERROUS SULFATE 325MG TAB PO SCH ×3 (08:45→21:28)
[2020-02-17] MEDS: VENLAFAXINE **XR** 75MG CAPSULE PO SCH ×2 (08:45→21:27)
[2020-02-17] MEDS: CALCIUM/VITAMIN D 500 MG TAB PO SCH (08:45)
[2020-02-17] MEDS: TORSEMIDE 20 MG TAB PO SCH ×2 (08:46→15:10)
[2020-02-17] MEDS: HEPARIN SOD (PORCINE) 5000UNITS/ML VIAL (J1644 PER 1000UNITS) SC SCH ×2 (09:00→09:31)
[2020-02-17] MEDS: bisoproloL fumarate 5 MG TAB PO SCH ×2 (09:31→21:29)
[2020-02-17] MEDS: CYCLOBENZAPRINE 10MG TABLET PO PRN ×2 (12:22→21:31)
[2020-02-17 14:00] VITALS: BP 111/56
[2020-02-17] MEDS: BENZONATATE 100 MG CAP PO SCH ×2 (15:10→21:26)
--- NOTE | 2020-02-17 15:10 | IPNPDOC ---
Text Note Date of Service The patient was seen on 02/17/20. NOTE TIME OF SERVICE: 12:55 PM Subjective: The patient reports that her shortness of breath has improved compared to yesterday but she is not quite back to her baseline. She is curr ently using oxygen during the day but at her baseline she uses oxygen primarily at night. She reports feeling more short of breath when she gets up to walk and is been coughing persistently. The lidocaine patch helped with her back pain Objective: GEN: NAD HEENT: NC in place CVS: RRR/NMRG LUNGS: CTAB on RA NEURO: speech not dysarthric PSYCH: A&O x3 /able to understand and follow all commands Vitals and labs: see below Assessment: Ms. Saucedo is a 64 yr old w a PMH of liver cirrhosis and pulmonary nodules 2/2 alpha-1 antitrypsin deficiency , LISA, chronic diastolic CHF, pancytopenia 2/2 splenomegaly from cirrhosis/portal hypertension, neuropathy, AVMs, GAVE, GERD, IBS, optic migraines, dyslipidemia, chronic depression, seizure disorder, hx of multiple DVTs with placement of an IVC filter, hx of CVA, & morbid obesity who is admitted for management of dyspnea 2/2 PNA vs Chronic Pneumonitis. Plan: 1. Pneumonia vs Chronic Pneumonitis. She has underlying A1AT deficiency. Improving but she still requires supplemental O2 during the day and her O2 sat dropped to 89% this AM despite 1.5L of O2. - c/w Levaquin day #3, duonebs / add tessalon pearls for cough / f/u VBG in the morning 2. Chronic Diastolic CHF. H2FPEF score is 7 which is associated with a greater than 90 % probability of diastolic CHF -f /u Is and Os and daily weights / torsemide 3. Pancytopenia 2/2 splenomegaly from cirrhosis& portal HTN due to A1AT deficiency. Her cell counts are trending down - f/u CBC & c/w oral iron / d/c heparin 4. Neuropathy - gabapentin 5. Dyslipidemia / hx of CVA - atorvastatin / not on ASA bc of chronic thrombocytopenia 6. Chronic depression - trazadone & venlafaxine 7. Suspected DASHA - she uses O2 at night / repeat Home O2 test tomorrow 8. Morbid obesity with BMI of 59.8 complicates care. - f/u A1C DVT Px w SCDs Dispo: possibly home tomorrow VS,Fishbone, I+O VS, Fishbone, I+O Laboratory Tests 02/17/20 06:18 Vital Signs Date Time Temp Pulse Resp B/P (MAP) Pulse Ox O2 Delivery O2 Flow Rate FiO2 02/17/20 14:00 98.4 64 18 111/56 (74) 93 Nasal Cannula 1.5 I&O- Last 24 Hours up to 6 AM 02/17/20 06:00 Intake Total 560 ml Output Total 1300 ml Balance -740 ml RACHELE KHAN MD Feb 17, 2020 15:10
[2020-02-17] MEDS: LIDOCAINE 5% (LIDODERM) PATCH TD PRN (15:11)
[2020-02-17] MEDS: LevoFLOXacin IV 500 MG in IV 1 EA IV SCH (21:24)
[2020-02-17] MEDS: VITAMIN D (CHOLECALCIFEROL) 400 INTERNATIONAL UNITS TAB PO SCH (21:25)
[2020-02-17] MEDS: traZODone 50 MG TAB PO SCH (21:26)
[2020-02-17] MEDS: CYANOCOBALAMIN 500 MCG TAB PO SCH (21:27)
[2020-02-17] MEDS: POTASSIUM CHLORIDE 10 MEQ SR TABLET PO SCH (21:28)
[2020-02-17] MEDS: SPIRONOLACTONE 25 MG TAB PO SCH (21:29)
[2020-02-17 22:00] VITALS: BP 115/58
[2020-02-18] MEDS: **NOTE PATIENT COMMENT** MISC XX SCH ×3 (03:00→20:22)
[2020-02-18] MEDS: LEVOTHYROXINE 88MCG TABLET (0.088 MG) PO SCH (05:05)
[2020-02-18] MEDS: BENZONATATE 100 MG CAP PO SCH ×3 (05:05→21:30)
[2020-02-18] MEDS: CYCLOBENZAPRINE 10MG TABLET PO PRN ×2 (05:05→20:24)
[2020-02-18 06:00] VITALS: BP 102/44
[2020-02-18 06:25] LABS: VENOUS BASE EXCESS 2.3 (-2.0-2.0); VENOUS HCO3 26.1 MEQ/L (23.0-27.0); VENOUS O2 SATURATION 98.6 % (60.0-80.0); VENOUS PARTIAL PRESSURE CO2 37.8 mmHg (38.0-50.0); VENOUS PARTIAL PRESSURE O2 127.7 mmHg (30.0-50.0); VENOUS PH 7.457 UNITS (7.330-7.430); VENOUS STANDARD HCO3 26.5 MEQ/L; VENOUS TOTAL CO2 27.3 MEQ/L (24.0-28.0)
[2020-02-18 06:28] LABS: BASO % 0.6 % (0.0-1.0); EOS # 0.2 10^3/uL (0.0-0.5); EOS % 5.1 % (0.0-3.0); HEMATOCRIT 37.5 % (36.0-47.0); HEMOGLOBIN 12.4 g/dl (12.0-15.5); LYMPH # 0.8 10^3/uL (1.5-5.0); MEAN CORPUSCULAR HEMOGLOBIN 32.1 pg (27.0-33.0); MEAN CORPUSCULAR HGB CONC 33.1 g/dl (32.0-36.5); MEAN CORPUSCULAR VOLUME 97.2 fl (80.0-96.0); MONO # 0.3 10^3/uL (0.0-0.8); MONO % 8.3 % (0.0-5.0); NEUTROPHILS # 1.9 10^3/uL (1.5-8.5); NEUTROPHILS % 59.4 % (36.0-66.0); RED BLOOD COUNT 3.86 10^6/uL (4.00-5.40); WHITE BLOOD COUNT 3.1 10^3/uL (4.0-10.0)
[2020-02-18 06:30] LABS: PLATELET COUNT, AUTOMATED 49 10^3/uL (150-450)
[2020-02-18 06:47] LABS: HEMOGLOBIN A1c 4.6 %
[2020-02-18 06:57] LABS: BLOOD UREA NITROGEN 22 MG/DL (7-18); CALCIUM LEVEL 8.9 MG/DL (8.8-10.2); CARBON DIOXIDE LEVEL 29 MEQ/L (21-32); CHLORIDE LEVEL 105 MEQ/L (98-107); CREATININE FOR GFR 0.82 MG/DL (0.55-1.30); GLOMERULAR FILTRATION RATE > 60.0 (>45); GLUCOSE, FASTING 84 MG/DL (70-100); POTASSIUM SERUM 4.1 MEQ/L (3.5-5.1); SODIUM LEVEL 139 MEQ/L (136-145)
[2020-02-18] MEDS: FERROUS SULFATE 325MG TAB PO SCH ×3 (07:48→20:16)
[2020-02-18] MEDS: ATORVASTATIN 20 MG TAB PO SCH (07:48)
[2020-02-18] MEDS: TORSEMIDE 20 MG TAB PO SCH ×2 (07:48→15:43)
[2020-02-18] MEDS: GABAPENTIN 400 MG CAP PO SCH ×3 (07:48→20:17)
[2020-02-18] MEDS: PANTOPRAZOLE 40MG TAB (PROTONIX) PO SCH ×2 (07:49→20:16)
[2020-02-18] MEDS: VENLAFAXINE **XR** 75MG CAPSULE PO SCH ×2 (07:49→20:16)
[2020-02-18] MEDS: CALCIUM/VITAMIN D 500 MG TAB PO SCH (07:49)
[2020-02-18] MEDS: DOCUSATE SODIUM 100 MG CAP PO SCH ×2 (07:51→20:18)
[2020-02-18] MEDS: ACETAMINOPHEN 500 MG TAB PO SCH ×3 (08:19→21:31)
[2020-02-18] MEDS: bisoproloL fumarate 5 MG TAB PO SCH ×2 (09:25→20:17)
[2020-02-18 14:00] VITALS: BP 99/44
--- NOTE | 2020-02-18 14:11 | IPNPDOC ---
Text Note Date of Service The patient was seen on 02/18/20. NOTE TIME OF SERVICE: 12:55 PM Subjective: The patient reports that she's not quite back to her baseline with regards to her shortness of breath. At her baseline she uses 2 L of oxygen at night and 3 L of oxygen during the day only while walking. But she currently requires oxygen at all times and reports feeling very short of breath when she gets up to walk. Per discussion with her RN this morning when they tried to get her up to walk her O2 sats dropped. Objective: GEN: NAD HEENT: NC in place CVS: RRR/NMRG LUNGS: CTAB on RA NEURO: speech not dysarthric PSYCH: A&O x3 /able to understand and follow all commands Vitals and labs: see below Assessment: Ms. Saucedo is a 64 yr old w a PMH of liver cirrhosis and pulmonary nodules 2/2 alpha-1 antitrypsin deficiency , LISA, chronic diastolic CHF, pancytopenia 2/2 splenomegaly from cirrhosis/portal hypertension, neuropathy, AVMs, GAVE, GERD, IBS, optic migraines, dyslipidemia, chronic depression, seizure disorder, hx of multiple DVTs with placement of an IVC filter, hx of CVA, & morbid obesity who is admitted for management of dyspnea 2/2 PNA vs Chronic Pneumonitis. Plan: 1. Pneumonia. She has underlying A1AT deficiency. Her PNA is improving, but she still requires supplemental O2 even while resting. Her VBG shows improved oxygenation when compared to the ABG done on admission - switch from IV to PO Levaquin today (abx day #12/17), andrews vincent 2. Chronic Diastolic CHF. H2FPEF score is 7 which is associated with a greater than 90 % probability of diastolic CHF. Her BNP is 93. -f /u Is and Os and harshal ly weights / c/w torsemide 3. Pancytopenia 2/2 splenomegaly due to A1AT related Cirrhosis & portal HTN. Her cell counts are stable- f/u CBC & c/w oral iron 4. Neuropathy - gabapentin 5. Dyslipidemia / hx of CVA - atorvastatin / not on ASA bc of chronic thrombocytopenia 6. Chronic depression - trazadone & venlafaxine 7. Suspected DASHA - she uses O2 at night / she will need na out pt sleep study if it has not already been done 8. Morbid obesity with BMI of 59.8 complicates care. She doesn't have co- existing DM; her A1C is only 4.6%. DVT Px w SCDs bc of chronic pancytopenia. Dispo: possibly home tomorrow if her O2 requirements are closer to her baseline VS,Fishbone, I+O VS, Fishbone, I+O Laboratory Tests 02/18/20 06:16 Vital Signs Date Time Temp Pulse Resp B/P (MAP) Pulse Ox O2 Delivery O2 Flow Rate FiO2 02/18/20 11:35 2.0 02/18/20 09:25 54 102/44 02/18/20 06:00 98.2 17 94 Nasal Cannula I&O- Last 24 Hours up to 6 AM 02/18/20 05:59 Intake Total 1360 ml Output Total 2250 ml Balance -890 ml RACHELE KHAN MD Feb 18, 2020 14:11
[2020-02-18] MEDS ORDERED: LEVO500T3 PO (14:27)
[2020-02-18 20:04] VITALS: BP 106/61
[2020-02-18] MEDS: VITAMIN D (CHOLECALCIFEROL) 400 INTERNATIONAL UNITS TAB PO SCH (20:16)
[2020-02-18] MEDS: traZODone 50 MG TAB PO SCH (20:16)
[2020-02-18] MEDS: CYANOCOBALAMIN 500 MCG TAB PO SCH (20:17)
[2020-02-18] MEDS: POTASSIUM CHLORIDE 10 MEQ SR TABLET PO SCH (20:17)
[2020-02-18] MEDS: SPIRONOLACTONE 25 MG TAB PO SCH (20:18)
[2020-02-18] MEDS ORDERED: LevoFLOXacin 500 MG TABLET PO SCH (21:00)
[2020-02-19 05:24] VITALS: BP 123/62
[2020-02-19] MEDS: LEVOTHYROXINE 88MCG TABLET (0.088 MG) PO SCH (05:49)
[2020-02-19] MEDS: BENZONATATE 100 MG CAP PO SCH (05:49)
[2020-02-19] MEDS: ACETAMINOPHEN 500 MG TAB PO SCH (05:50)
[2020-02-19 06:40] LABS: BASO % 0.4 % (0.0-1.0); EOS # 0.2 10^3/uL (0.0-0.5); EOS % 6.7 % (0.0-3.0); HEMATOCRIT 35.8 % (36.0-47.0); HEMOGLOBIN 11.8 g/dl (12.0-15.5); LYMPH # 0.6 10^3/uL (1.5-5.0); LYMPH % 25.8 % (24.0-44.0); MEAN CORPUSCULAR HEMOGLOBIN 32.2 pg (27.0-33.0); MEAN CORPUSCULAR VOLUME 97.8 fl (80.0-96.0); MONO # 0.2 10^3/uL (0.0-0.8); MONO % 8.9 % (0.0-5.0); NEUTROPHILS # 1.3 10^3/uL (1.5-8.5); NEUTROPHILS % 57.8 % (36.0-66.0); RED BLOOD COUNT 3.66 10^6/uL (4.00-5.40); WHITE BLOOD COUNT 2.3 10^3/uL (4.0-10.0)
[2020-02-19 06:41] LABS: PLATELET COUNT, AUTOMATED 44 10^3/uL (150-450)
[2020-02-19 07:00] LABS: BLOOD UREA NITROGEN 21 MG/DL (7-18); CALCIUM LEVEL 8.7 MG/DL (8.8-10.2); CARBON DIOXIDE LEVEL 31 MEQ/L (21-32); CHLORIDE LEVEL 106 MEQ/L (98-107); CREATININE FOR GFR 0.76 MG/DL (0.55-1.30); GLOMERULAR FILTRATION RATE > 60.0 (>45); GLUCOSE, FASTING 78 MG/DL (70-100); SODIUM LEVEL 141 MEQ/L (136-145)
[2020-02-19] MEDS: PANTOPRAZOLE 40MG TAB (PROTONIX) PO SCH (08:38)
[2020-02-19] MEDS: DOCUSATE SODIUM 100 MG CAP PO SCH (08:38)
[2020-02-19] MEDS: TORSEMIDE 20 MG TAB PO SCH (08:38)
[2020-02-19] MEDS: VENLAFAXINE **XR** 75MG CAPSULE PO SCH (08:38)
[2020-02-19] MEDS: FERROUS SULFATE 325MG TAB PO SCH (08:38)
[2020-02-19] MEDS: CALCIUM/VITAMIN D 500 MG TAB PO SCH (08:38)
[2020-02-19] MEDS: GABAPENTIN 400 MG CAP PO SCH ×2 (08:38→12:22)
[2020-02-19 08:39] VITALS: BP 120/87
[2020-02-19] MEDS: bisoproloL fumarate 5 MG TAB PO SCH (08:39)
[2020-02-19] MEDS: ATORVASTATIN 20 MG TAB PO SCH (08:39)
--- NOTE | 2020-02-21 21:12 | DSES ---
DATE OF ADMISSION: 02/15/2020 DATE OF DISCHARGE: 02/19/2020 PRIMARY DISCHARGE DIAGNOSES: 1. Community-acquired pneumonia in the setting of alpha-1 antitrypsin deficiency. 2. Chronic diastolic heart failure, compensated with preserved ejection fraction. 3. Pancytopenia secondary to splenomegaly due to alpha-1 antitrypsin and cirrhosis and portal hypertension. 4. Liver cirrhosis secondary to alpha-1 antitrypsin deficiency. 5. Portal hypertension. 6. Chronic neuropathy. 7. Morbid obesity, body mass index (BMI) of 59. 8. Suspected obstructive sleep apnea. 9. Chronic depression. 10. Dyslipidemia. 11. History of CVA. 12. Splenomegaly. 13. Splenic artery aneurysm 1.2 cm in diameter. DISCHARGE MEDICATIONS: - Levaquin 500 daily for 3 days - bisoprolol 5 mg twice a day - calcium 600 nightly - vitamin D 400 units nightly - B12 1000 mcg nightly - cyclobenzaprine 10 three times a day as needed - Colace 100 twice a day as needed - ferrous sulfate 325 three times a day - gabapentin 800 twice a day, 400 daily - ipratropium albuterol one inhalation every 6 hours as needed - levothyroxine 88 mcg daily - Protonix 40 mg twice a day - potassium 20 mEq nightly - Gas-X 125 mg before food and nightly as needed - spironolactone 25 nightly - torsemide 20 twice a day - trazodone 150 nightly - venlafaxine 75 daily, 150 nightly - vitamin B one tablet daily FOLLOWUP INSTRUCTIONS: Followup with Dr. Tillman within 1 week of discharge, primary care physician within 5 days of discharge. Continue oxygen 24 hours a day, 2 liters nasal cannula continuously. Complete your antibiotics, Levaquin for the next 3 days. HOSPITAL COURSE: This is a 64-year-old female who presented to the emergency room on 02/15/2020 with worsening shortness of breath and hypoxia, as well as pleuritic costochondritic pain in the chest. The patient had abdominal pain left upper quadrant and left flank for the past 2 weeks. Chest pain was midsternal on exam and reproducible, non-radiating and persistent. Patient also complained of dull abdominal pain. Patient was afebrile. White count of 2.5 with chronic pancytopenia due to splenomegaly from alpha-1 antitrypsin, portal hypertension. She was found to have a pneumonia. CT chest showed no pulmonary embolism (PE) but right lower lobe opacity and left lung pneumonitis, questionable pneumonia, and was started on Levaquin 500 IV every 24 hours. Patient was kept on deep venous thrombosis (DVT) prophylaxis, 2 gram sodium diet. Echo done showed diastolic dysfunction. BNP was only 89, therefore despite receiving one dose of IV Lasix, patient was kept on her home medications, strict intake and output, and daily weights. Despite having significant thrombocytopenia and anemia, she was not transfused. White count remained stable, did not require any Neupogen. Patient was kept on oxygen 2 liters at all times for suspected obstructive sleep apnea (DASHA) at night. Patient is discharged in stable condition. PHYSICAL EXAMINATION: On discharge: Temperature 97.9, pulse 53, respiratory rate 17, blood pressure 123/62, 95% on 2 liters nasal cannula. Generally: Patient is morbidly obese, unable to assess for jugular venous distention (JVD) or thyromegaly. Lungs: Clear to auscultation, no wheezing or rales. Heart: S1, S2, sinus rhythm. Abdomen: Obese, soft, nontender, nondistended. Extremities: No cyanosis or clubbing. DISCHARGE LABORATORIES: White count 2.3, hemoglobin 11, hematocrit 35, platelet count 44, admission platelet count was 46, sodium 141, potassium 4, chloride 106, bicarbonate 31, BUN 21, creatinine 0.76, glucose of 78. IMAGING STUDIES: CT chest 02/15/2020, no pulmonary embolism. Ground glass opacity right lower lobe and left lung that is new. Differential includes atypical infection, pneumonitis, atelectasis right middle and right upper lobe, mild cardiomegaly, splenomegaly with peripherally calcified splenic artery aneurysm 1.2 cm without progression. TIME SPENT ON DISCHARGE: 30 minutes. [facility]
== END 2020-02-19 14:20 | disposition home or self-care (01) | DRG 139 ==
LOC: M ED 15:16 → EDBD 15:16 → M ED INP 23:13 → ENRESERV 23:26 → M PCU 02-16 00:40 → M MS5PR 02-16 15:54
PROVIDERS: ADMIT Internal Medicine; ATTEND Internal Medicine
DX: J18.9 Pneumonia, unspecified organism (principal); D61.818 Other pancytopenia; I50.32 Chronic diastolic (congestive) heart failure; K76.6 Portal hypertension; E88.01 Alpha-1-antitrypsin deficiency; D69.6 Thrombocytopenia, unspecified; G62.9 Polyneuropathy, unspecified; E66.01 Morbid (severe) obesity due to excess calories; Z68.43 Body mass index [BMI] 50.0-59.9, adult; K75.81 Nonalcoholic steatohepatitis (NASH); K74.60 Unspecified cirrhosis of liver; K44.9 Diaphragmatic hernia without obstruction or gangrene; K21.9 Gastro-esophageal reflux disease without esophagitis; G47.33 Obstructive sleep apnea (adult) (pediatric); K58.9 Irritable bowel syndrome, unspecified; D50.9 Iron deficiency anemia, unspecified; E78.5 Hyperlipidemia, unspecified; F32.9 Major depressive disorder, single episode, unspecified; E53.8 Deficiency of other specified B group vitamins; G40.909 Epilepsy, unspecified, not intractable, without status epilepticus; Z11.59 Encounter for screening for other viral diseases; Z86.718 Personal history of other venous thrombosis and embolism; Z95.828 Presence of other vascular implants and grafts; Z79.899 Other long term (current) drug therapy; Z88.5 Allergy status to narcotic agent; Z88.6 Allergy status to analgesic agent; Z88.0 Allergy status to penicillin; Z88.1 Allergy status to other antibiotic agents; Z88.8 Allergy status to other drugs, medicaments and biological substances

== ENCOUNTER → 2020-03-21 | Outpatient (REF) | payer OTHER ==
[~2020-03-21] MED LIST changes: +D-40TAB2 PO; +DOK1CAP7 PO; +LEVO500T3 PO; +PANT40TA29 PO; -PANT40TA3 PO
[2020-03-21 13:24] LABS: HEMATOCRIT 39.9 % (36.0-47.0); HEMOGLOBIN 13.1 g/dl (12.0-15.5); MEAN CORPUSCULAR HEMOGLOBIN 33.1 pg (27.0-33.0); MEAN CORPUSCULAR HGB CONC 32.8 g/dl (32.0-36.5); MEAN CORPUSCULAR VOLUME 100.8 fl (80.0-96.0); PLATELET COUNT, AUTOMATED 61 10^3/uL (150-450); RED BLOOD COUNT 3.96 10^6/uL (4.00-5.40); WHITE BLOOD COUNT 3.7 10^3/uL (4.0-10.0)
[2020-03-21 13:48] LABS: ALT/SGPT 21 U/L (12-78); BILIRUBIN,TOTAL 0.9 MG/DL (0.2-1.0); BLOOD UREA NITROGEN 18 MG/DL (7-18); CARBON DIOXIDE LEVEL 25 MEQ/L (21-32); CHLORIDE LEVEL 113 MEQ/L (98-107); CREATININE FOR GFR 0.72 MG/DL (0.55-1.30); GLOMERULAR FILTRATION RATE > 60.0 (>45); GLUCOSE, FASTING 97 MG/DL (70-100); POTASSIUM SERUM 3.8 MEQ/L (3.5-5.1); SODIUM LEVEL 143 MEQ/L (136-145); TOTAL PROTEIN 5.8 GM/DL (6.4-8.2)
== END ==
LOC: M SFHCPLAZ 12:14
PROVIDERS: ATTEND Family Medicine
DX: R10.13 Epigastric pain (principal)

== ENCOUNTER 2020-03-23 05:53 | Emergency (ER) | payer OTHER ==
[~2020-03-23] VITALS: Ht 165.1 cm; Wt 160.9 kg
--- NOTE | 2020-03-23 08:25 | REPVR ---
PROCEDURE INFORMATION: Exam: CT Chest Without Contrast Exam date and time: 03/23/2020 6:28 AM Age: 64 years old Clinical indication: Injury or trauma; Fall; Initial encounter; Blunt trauma (contusions or hematomas); Additional info: Fall, bilateral rib pain, worse with inhalation TECHNIQUE: Imaging protocol: Computed tomography of the chest without contrast. Coronal and sagittal reformats were created and reviewed. 3D rendering: MIP and/or 3D reconstructed images were created by the technologist. Radiation optimization: All CT scans at this facility use at least one of these dose optimization techniques: automated exposure control; mA and/or kV adjustment per patient size (includes targeted exams where dose is matched to clinical indication); or iterative reconstruction. COMPARISON: CT Chest without contrast 10/30/2019 1:22 PM FINDINGS: Limitations: Noncontrast technique reduces sensitivity of CT for detecting abnormalities in the organs and vessels. Thyroid: Unremarkable as visualized. Lungs: The trachea is unremarkable. A bronchial diverticulum of the left mainstem bronchus is redemonstrated. Areas of focal fibrosis and bronchiectasis involving the right upper lobe and right middle lobe are redemonstrated. Mild dependent right lung atelectasis redemonstrated. Left upper lobe mild linear scarring redemonstrated. Moderate dependent left lung atelectasis redemonstrated. Pleural space: No pleural effusion, mass or calcification. No pneumothorax. Heart: Stable moderate cardiomegaly with left atrial and left ventricular enlargement. No pericardial effusion. Mediastinal space: The esophagus is unremarkable. No mediastinal mass. Pulmonary arteries: The main pulmonary arterial trunk is not enlarged. Aorta: Mild aortic atherosclerosis. No thoracic aortic aneurysm. Inferior vena cava: Incompletely imaged inferior vena cava filter within the infrahepatic inferior vena cava. Lymph nodes: No enlarged lymph nodes. Liver: Unchanged diffuse nodular contour of the liver compatible with cirrhosis. Gallbladder and bile ducts: Status post cholecystectomy. Pancreas: The pancreas is atrophic. Spleen: Splenomegaly redemonstrated. The spleen measures 18.7 cm in axial length. Unchanged peripherally calcified 1.2 cm splenic artery aneurysm at the splenic hilum. Bones/joints: Multilevel degenerative spine disease. Old healed right lateral 6th rib fracture. Old healed left anterior 6th rib fracture. Soft tissues: Incompletely imaged ventral abdominal wall surgical mesh. IMPRESSION: 1. No acute traumatic thoracic injury is identified. 2. Stable cardiomegaly. 3. Redemonstration of findings compatible with hepatic cirrhosis. Redemonstration of splenomegaly. 4. Stable 1.2 cm splenic artery aneurysm. 5. Please see the body of the report for other findings as described. Electronically signed by: Robin Malcolm On 03/23/2020 08:25:21 AM
[2020-03-23 09:30] VITALS: BP 137/63
--- NOTE | 2020-03-23 13:42 | REP ---
BILATERAL HIPS WITH AP PELVIS: 03/23/2020. COMPARISON: CT 11/18/2019. CLINICAL HISTORY: Patient fell. Hip pain bilaterally. FINDINGS: AP PELVIS: Surgical clips left lower quadrant and evidence for abdominal hernia repair. The pelvic ring is preserved without visible fracture. SI joints without definite fracture or asymmetric widening. The hip joint spaces are symmetric. There are mild degenerative changes at the acetabular roof with tiny spurs and subchondral sclerosis. BILATERAL HIPS: AP and frogleg view of each hip show small rim osteophytes acetabular roof. The hip joint space is symmetric and without narrowing on either side. No focal lesion, AVN, or significant spurring of the femoral heads. The femoral necks, intertrochanteric and subtrochanteric hip are unremarkable. IMPRESSION: 1. Minimal degenerative changes of the hips symmetric and without evidence of hip fracture. 2. The AP pelvis shows intact pelvic ring, pubic rami, iliac wings, and SI joints. Sacrum grossly intact. There is facet arthropathy and degenerative disc change in lower lumbar spine. Electronically Signed by Yakov Esposito MD 03/23/2020 06:58 P
== END 2020-03-23 09:50 | disposition home or self-care (01) ==
LOC: M ED 05:53 → EDBD 05:53 → M ED 09:50
DX: R07.82 Intercostal pain (principal); M25.551 Pain in right hip; M25.552 Pain in left hip; W01.0XXA Fall on same level from slipping, tripping and stumbling without subsequent striking against object, initial encounter; Y92.009 Unspecified place in unspecified non-institutional (private) residence as the place of occurrence of the external cause; Y93.9 Activity, unspecified; Y99.9 Unspecified external cause status; R16.1 Splenomegaly, not elsewhere classified; I48.91 Unspecified atrial fibrillation; I72.8 Aneurysm of other specified arteries; I11.9 Hypertensive heart disease without heart failure; J44.9 Chronic obstructive pulmonary disease, unspecified; Z79.899 Other long term (current) drug therapy; Z88.1 Allergy status to other antibiotic agents; Z88.6 Allergy status to analgesic agent; Z88.8 Allergy status to other drugs, medicaments and biological substances

== ENCOUNTER → 2020-04-17 | Emergency (ER) | payer OTHER ==
[~2020-04-17] MED LIST changes: -PANT40TA29 PO; +PANT40TA3 PO
== END | disposition left against medical advice (07) ==
LOC: M ED 19:15
DX: Z53.21 Procedure and treatment not carried out due to patient leaving prior to being seen by health care provider (principal)

== ENCOUNTER 2020-06-24 17:44 | Emergency (ER) | payer OTHER ==
[~2020-06-24 17:44] MED LIST changes: +PANT40TA29 PO; -PANT40TA3 PO
[2020-06-24 18:18] LABS: BASO % 0.7 % (0.0-1.0); EOS # 0.1 10^3/uL (0.0-0.5); EOS % 3.6 % (0.0-3.0); HEMOGLOBIN 11.1 g/dl (12.0-15.5); LYMPH # 0.6 10^3/uL (1.5-5.0); LYMPH % 21.3 % (24.0-44.0); MEAN CORPUSCULAR HGB CONC 31.7 g/dl (32.0-36.5); MEAN CORPUSCULAR VOLUME 97.8 fl (80.0-96.0); MONO # 0.2 10^3/uL (0.0-0.8); MONO % 7.6 % (0.0-5.0); NEUTROPHILS # 1.8 10^3/uL (1.5-8.5); NEUTROPHILS % 66.4 % (36.0-66.0); RED BLOOD COUNT 3.58 10^6/uL (4.00-5.40); WHITE BLOOD COUNT 2.8 10^3/uL (4.0-10.0)
[2020-06-24 18:19] LABS: PLATELET COUNT, AUTOMATED 55 10^3/uL (150-450)
--- NOTE | 2020-06-24 18:41 | REPVR ---
PROCEDURE INFORMATION: Exam: XR Chest, 1 View Exam date and time: 06/24/2020 5:58 PM Age: 64 years old Clinical indication: Cough and shortness of breath; Additional info: Dyspnea/cough TECHNIQUE: Imaging protocol: XR of the chest Views: 1 view. COMPARISON: CT Chest without contrast 03/23/2020 6:55 AM FINDINGS: Lungs: Increased basilar lung markings in the medial aspect of the right lower lobe and possibly in the retrocardiac region. Atelectasis or infiltrates to be considered clinically. Pleural space: Unremarkable. No pleural effusion. No pneumothorax. Heart/Mediastinum: Cardiomegaly. Bones/joints: Unremarkable. IMPRESSION: 1. Cardiomegaly. 2. Increased basilar lung markings in the medial aspect of the right lower lobe and possibly in the retrocardiac region. Atelectasis or infiltrates to be considered clinically. Electronically signed by: Mukund Woodard On 06/24/2020 18:40:57 PM
[2020-06-24 18:45] LABS: ALBUMIN 2.9 GM/DL (3.2-5.2); ALT/SGPT 17 U/L (12-78); BILIRUBIN,DIRECT 0.3 MG/DL (0.0-0.2); BILIRUBIN,TOTAL 0.9 MG/DL (0.2-1.0); BLOOD UREA NITROGEN 18 MG/DL (7-18); CALCIUM LEVEL 8.8 MG/DL (8.8-10.2); CARBON DIOXIDE LEVEL 26 MEQ/L (21-32); CHLORIDE LEVEL 111 MEQ/L (98-107); CREATININE FOR GFR 0.75 MG/DL (0.55-1.30); GLOMERULAR FILTRATION RATE > 60.0 (>45); GLUCOSE, FASTING 87 MG/DL (70-100); POTASSIUM SERUM 4.5 MEQ/L (3.5-5.1); SODIUM LEVEL 140 MEQ/L (136-145); TOTAL PROTEIN 5.8 GM/DL (6.4-8.2)
[2020-06-24] MEDS ORDERED: LevoFLOXacin 750 MG TABLET PO ONE (20:15)
[2020-06-24] MEDS ORDERED: LEVA750T7 PO (20:25)
--- NOTE | 2020-06-24 20:57 | ECGEPIP ---
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
[2020-06-24 20:59] VITALS: BP 161/76
== END 2020-06-24 21:15 | disposition home or self-care (01) ==
LOC: M ED 17:44
DX: J18.9 Pneumonia, unspecified organism (principal); I51.7 Cardiomegaly; R00.1 Bradycardia, unspecified; Z79.899 Other long term (current) drug therapy; Z88.1 Allergy status to other antibiotic agents; Z88.6 Allergy status to analgesic agent; Z88.8 Allergy status to other drugs, medicaments and biological substances

== ENCOUNTER 2020-07-30 04:52 | Inpatient (IN) | payer OTHER ==
[~2020-07-30] VITALS: Ht 162.6 cm; Wt 166.8 kg
[2020-07-30] MEDS ORDERED: CARA1TAB6 PO (05:46)
[2020-07-30 06:32] LABS: BASO % 0.8 % (0.0-1.0); EOS # 0.1 10^3/uL (0.0-0.5); EOS % 3.5 % (0.0-3.0); HEMATOCRIT 33.8 % (36.0-47.0); HEMOGLOBIN 10.1 g/dl (12.0-15.5); LYMPH # 0.6 10^3/uL (1.5-5.0); LYMPH % 22.4 % (24.0-44.0); MEAN CORPUSCULAR HEMOGLOBIN 29.4 pg (27.0-33.0); MEAN CORPUSCULAR HGB CONC 29.9 g/dl (32.0-36.5); MEAN CORPUSCULAR VOLUME 98.3 fl (80.0-96.0); MONO # 0.2 10^3/uL (0.0-0.8); MONO % 8.3 % (0.0-5.0); NEUTROPHILS # 1.6 10^3/uL (1.5-8.5); NEUTROPHILS % 64.6 % (36.0-66.0); RED BLOOD COUNT 3.44 10^6/uL (4.00-5.40); WHITE BLOOD COUNT 2.5 10^3/uL (4.0-10.0)
[2020-07-30 06:35] LABS: PLATELET COUNT, AUTOMATED 52 10^3/uL (150-450)
[2020-07-30 06:40] LABS: INR 1.07; PROTHROMBIN TIME 14.1 SECONDS (12.5-14.3)
[2020-07-30 06:43] LABS: D-DIMER QUANT 1568.15 ng/ml (<500)
[2020-07-30 06:47] LABS: BLOOD UREA NITROGEN 21 MG/DL (7-18); CALCIUM LEVEL 9.2 MG/DL (8.8-10.2); CARBON DIOXIDE LEVEL 26 MEQ/L (21-32); CHLORIDE LEVEL 111 MEQ/L (98-107); CK-MB VALUE MASS 1.3 NG/ML (<3.6); CPK CREATINE PHOSPHOKINASE 44 U/L (26-192); CREATININE FOR GFR 0.66 MG/DL (0.55-1.30); GLOMERULAR FILTRATION RATE > 60.0 (>45); GLUCOSE, FASTING 86 MG/DL (70-100); MB/CK RELATIVE INDEX 2.95 (< OR =4); SODIUM LEVEL 140 MEQ/L (136-145); TROPONIN I < 0.02 NG/ML (< 0.10)
--- NOTE | 2020-07-30 07:02 | REPVR ---
PROCEDURE INFORMATION: Exam: XR Chest, 1 View Exam date and time: 07/30/20 (5:22am) Age: 64 years old Clinical indication: Chest pain TECHNIQUE: Imaging protocol: Portable CXR Views: 1 view COMPARISON: Portable CXR of 06/24/20 Portable CXR of 02/15/20 FINDINGS: Comparison is made with portable CXR's done on 06/24/20 and 02/15/20. Stable cardiomegaly. Elevation of the right hemidiaphragm again seen. Streaky and slightly patchy opacities remain in the right infrahilar region. A similar appearance was noted in 2019 and February 2020. The visualized left lung remains clear. IMPRESSION: In general, similar findings were noted 1 month and 5 months ago. Streaky and patchy parenchymal changes persist in the right infrahilar region. These changes may be chronic in nature, or perhaps represent recurrent or persistent pneumonia. The upper lung zones remain clear. Stable cardiomegaly. Electronically signed by: Anya Pulido On 07/30/2020 07:02:01 AM
--- NOTE | 2020-07-30 07:26 | ECGEPIP ---
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
[2020-07-30] MEDS ORDERED: VENLAFAXINE **XR** 75MG CAPSULE PO SCH (09:00)
--- NOTE | 2020-07-30 11:14 | REP ---
INDICATION: chest pain. COMPARISON: 03/23/2020. TECHNIQUE: CT chest performed without the use of intravenous contrast. Sagittal and coronal reconstruction images are performed. The images are obtained at approximately 10:12 to 10:14 a.m.. They were submitted for interpretation at approximately 10:55 a.m.. FINDINGS: Lungs: The right lung demonstrates areas of stable fibrosis. However there is mild patchy atelectasis or infiltrate in the posterior right lower lobe. Similar findings are seen on the left with some scattered patchy atelectasis or infiltrate superimposed on chronic fibrotic change. Mediastinum: No gross adenopathy. Samantha: No gross adenopathy. Axilla: No gross adenopathy. Pleura: No effusion. Heart: Heart is moderately enlarged. Thoracic aorta: No aneurysm. Upper abdominal structures: There has been a prior cholecystectomy. There is splenomegaly with apparent cirrhotic changes of the liver. Calcified splenic artery aneurysm is again noted. Visualized osseous structures: There are degenerative changes of the spine without compression deformity. IMPRESSION: Areas of mild patchy atelectasis or infiltrate in both lungs superimposed on chronic fibrotic change. Moderate cardiomegaly. Cirrhotic changes of the liver with splenomegaly. <Electronically signed by Alejandro Coleman > 07/30/20 1111
[2020-07-30 11:24] LABS: CK-MB VALUE MASS 1.1 NG/ML (<3.6); CPK CREATINE PHOSPHOKINASE 65 U/L (26-192); MB/CK RELATIVE INDEX 1.69 (< OR =4); TROPONIN I < 0.02 NG/ML (< 0.10)
[2020-07-30] MEDS ORDERED: AZITHROMYCIN 250MG TABLET PO ONE (13:00)
[2020-07-30] MEDS ORDERED: dexameTHASONE 20MG/5ML VIAL (J1100 PER 1MG) IV ONE (13:00)
[2020-07-30] MEDS ORDERED: cefTRIAXone SOD 2 GM in D5W MINI-BAG PLUS 50 ML IV ONE (13:00)
[2020-07-30] MEDS ORDERED: OYST1TAB PO (13:05)
[2020-07-30] MEDS ORDERED: LOPE2TAB12 PO (13:05)
[2020-07-30] MEDS ORDERED: GABA-1171 PO (13:05)
[2020-07-30 13:55] LABS: NT-PRO BNP 229 PG/ML (<125)
--- NOTE | 2020-07-30 14:14 | HPEPDOC ---
[facility] Medical History & Physical Date of Admission Jul 30, 2020 Date of Service: Jul 30, 2020 Attending Physician: Georgie Parks MD History and Physical CHIEF COMPLAINT: chest pain, shortness of breath HISTORY OF PRESENT ILLNESS: Patient is a 64 y/o F with PMH Alpha-1 antitrypsin deficiency, LISA, chronic diastolic heart failure, compensated with preserved ejection fraction., pancytopenia 2/2 to splenomegaly, neuropathy, history of recurrent GI bleed attributed to rectal fissures, prepyloric erosion, hiatial hernia, antral gastritis, antral ulcers, distal esophagitis, AVMs, and gastric antral vascular ectasia (GAVE), GERD, IBS, hx of DVT s/p IVC filter placement, CVA, hx of community acquired pneumonia and portal hypertension who presented to [facility] ER with chief complaint of incr SOB, chest pain beginning evening of 07/29/20. Patient describes substernal chest pain 8 out of 10, pressure-like, constant. She also says it was increased with deep breathing. Other associated symptoms include increased shortness of breath, nausea, increased lethargy, decreased appetite for the past several days. She had similar symptoms several years ago when she was admitted for pneumonia, chest pain. She denies vomiting, sick contacts, recent hospitalizations in the past 3 months, fevers, chills, weight loss. Due to her chest pain the patient came to the emergency room to get further examined. In the ER, VS showed BP elevated at 170-180 systolic. HR 50-60 sinus. ECG showed sinus bradycardia. Pain resolved by time of arrival to ER. It was not recreatable on palpation. DDimer was done and elevated at 1568. COVID neg. She has a history of DVT with IVC filter placement so PE could not be ruled out. Trop neg x2, BNP minimally elevated at 200. IV access was poor so contrast with CT could not be done to r/o PE. CT chest without contrast: Areas of mild patchy atelectasis or infiltrate in both lungs superimposed on chronic fibrotic change. Moderate cardiomegaly. She was placed on 4 L NC to help with oxygenation, at baseline patient uses 2 L NC atc. WBC and PLTs are low and near her baseline, chronically low. Patient was admitted for community acquired pneumonia, chest pain r/o PE with history of DVT. REVIEW OF SYSTEMS: CONSTITUTIONAL: Denies lack of energy, unexplained weight gain or weight loss, loss of appetite, fever, night sweats EYES: Denies eye drainage, eye pain, visual changes, dry/irritated eye EARS, NOSE, MOUTH, THROAT: Denies difficulty hearing, ringing in ears, mouth sores, loose teeth, sore throat, facial numbness or pain NECK: Denies swollen glands CARDIOVASCULAR: Denies irregular heartbeat, racing heart, chest pains, swelling of feet or legs, pain in legs with walking RESPIRATORY: Denies shortness of breath, night sweats, wheezing, sputum production, oxygen at home, coughing up blood, cough lasting > 1 month GASTROINTESTINAL: Denies abdominal pain, constipation, bloody stool, diarrhea, heartburn, nausea, vomiting GENITOURINARY: Denies painful urination, bloody urine, frequent urination, urgency, leaking urine, impotence MUSCULOSKELETAL: Denies joint pain, muscle pain, leg swelling INTEGUMENTARY: Denies rash, itching, new skin lesion, change in existing skin lesion, hair loss or increase, breast changes. NEUROLOGICAL: Denies headaches, dizziness, difficulty walking, numbness or tingling PSYCHIATRIC: Denies depression, anxiety, recurrent bad thoughts, mood swings, hallucinations PAST MEDICAL HISTORY: Alpha-1 antitrypsin deficiency LISA Chronic diastolic heart failure, compensated with preserved ejection fraction. Pancytopenia Neuropathy History of recurrent GI bleed attributed to rectal fissures, prepyloric erosion, hiatial hernia, antral gastritis, antral ulcers, distal esophagitis, AVMs, and gastric antral vascular ectasia (GAVE) GERD Irritable bowel syndrome Optic migraines Dyslipidemia Chronic Depression History of vitamin B12 deficiency History of seizures started in 1975, resolved in 1982 History of DVT 2, status post IVC filter placement in 1999 Remote history of CVA with transient left-sided weakness Morbid obesity Per chart review, history of acquired hypothyroidism Unsteady gait at baseline she walks with a walker Hx of community-acquired pneumonia 02/2019 Pancytopenia secondary to splenomegaly due to alpha-1 antitrypsin and cirrhosis and portal hypertension. Portal hypertension Chronic neuropathy Morbid obesity, body mass index (BMI) of 59 Suspected obstructive sleep apnea. Chronic thrombocytopenia Chronic leukopenia Hx of atrial fibrillation PAST SURGICAL HISTORY: Status post tonsillectomy with adenoidectomy Status post appendectomy Status post 2 Status post tubal ligation Status post sport for a laparoscopy due to pelvic pain and heavy bleeding Status post partial hysterectomy. Status post left ovarian cystectomy 2 Status post cholecystectomy Status post hemorrhoidectomy History of left lower abdominal incarcerated hernia repair Status post colostomy replacement and reversal 2 years later History of rectal fissurectomy with double skin graft History of ventral mid and upper abdominal hernias, status post mesh placement SOCIAL HISTORY: She does not smoke,d rink or do drugs. Lives with daughter locally. Follows with: PCP, Cardiology-Dr. vickers, Pulmonary- Dr. Tillman, GI- Dr. Shirley, Heme/onc- Dr. Aguirre. Full Code. HCP- daughter Adore Jaimes FAMILY HISTORY: Father- had breast cancer. at 75 y/o Mother ALS, at 79 y/o. One of her brothers had esophageal and stomach cancer ALLERGIES: Please see below. HOME MEDICATIONS: Please see below. PHYSICAL EXAMINATION: VS: please see below CONSTITUTIONAL: No acute distress, resting comfortably, AAO x 3 EYES: PERRLA, EOM intact HENT, MOUTH: Normocephalic, atraumatic, moist mucous membranes, nasal cannula in place3 NECK: large diameter neck, SUPPLE, no JVD, no lymphadenopathy, no carotid bruit CV: Regular rate and rhythm, S1S2 normal, no murmurs/rubs/gallops CHEST: IV in right chest wall RESPIRATORY: Decreased breath sounds bilaterally, , no rales/rhonchi/wheezes GI: obese abdomen, BS positive in 4 quadrants, soft, nontender, nondistended, no rebound or guarding, no organomegaly : Deferred MUSCULOSKELETAL: Normal ROM. No cyanosis, clubbing, swelling, joint deformity, extremity edema INTEGUMENTARY: no rashes, no lesions, no erythema. Chronic skin changes in b/l lower ext, healed prior wounds. Skin tear on right anterior lucero, left dorsal area of foot- appear clean, nonsuppurative, no foul smell NEUROLOGIC: Cranial Nerves II-XII are intact, no focal deficits PSYCHIATRIC: Mood and affect are normal LABORATORY DATA: Please see below IMAGING: CT chest without contrast: Areas of mild patchy atelectasis or infiltrate in both lungs superimposed on chronic fibrotic change. Moderate cardiomegaly. Cirrhotic changes of the liver with splenomegaly Doppler LE pending ASSESSMENT: 64 y/o F with PMH Alpha-1 antitrypsin deficiency, LISA, chronic diastolic heart failure- compensated with preserved ejection fraction., pancytopenia 2/2 to splenomegaly, neuropathy, history of recurrent GI bleed attributed to rectal fissures, prepyloric erosion, hiatial hernia, antral gastritis, antral ulcers, distal esophagitis, AVMs, and gastric antral vascular ectasia (GAVE), GERD, IBS, hx of DVT s/p IVC filter placement, CVA, hx of community acquired pneumonia portal hypertension admitted for further treatment of admitted for community acquired pneumonia, chest pain r/o PE with history of DVT. PLAN: #Chest pain, r/o pleuritic pain 2/2 to pneumonia, ACS vs. PE -Trop neg x 2, CT chest without contrast above. BNP 200, d dimer 1568 -Currently on 4 L NC, will wean down to home amount 2 L NC -F/u third troponin, tele monitoring -C/w treatment for PNA below, BB, nitro PRN -PICC line to be placed in AM, then getting CTA chest to r/o PE. # Community Acquired PNA -Hx of alpha-1 antitrypsin deficiency, recurrent PNA this year which can complicate course -WBC low 2/2 to pancytopenia -CT chest above -F/u BCx, sputum cx, daily labs -Ceftriaxone, doxycycline -Attempt to wean down to home O2 -Follows with Dr. Tillman o/p, pulmonology # Pancytopenia secondary to splenomegaly due to alpha-1 antitrypsin and cirrhosis and portal hypertension -WBC and PlTs at baseline -Follows with Dr. Aguirre o/p -F/u daily CBC, CMP #LISA -AST/ALT wnl -Denies abd pain -Follows with GI o/p # Chronic HFpEF -BNP mildly elevated, not believed to be in fluid overload or exacerbation -C/w all cardiac medications # Peripheral neuropathy -Stable -C/w home meds # History of recurrent GI bleed attributed to rectal fissures, prepyloric erosion, hiatial hernia, antral gastritis, antral ulcers, distal esophagitis, AVMs, and gastric antral vascular ectasia (GAVE) -Holding off on anticoagulating -SCDs, teds -If CTA chest with contrast + for PE, consider discussing with Dr. Aguirre. -IVC filter placed from 1999 #Hx of DVTx, IVC filter -No AC -SCD, teds #GERD -PPI #DVT px -SCD, teds DISPOSITION: Admitted under observation status. Plan is for discharge home when medically improved. Vital Signs Vital Signs Date Time Temp Pulse Resp B/P (MAP) Pulse Ox O2 Delivery O2 Flow Rate FiO2 07/30/20 14:00 53 18 179/77 (111) 100 Nasal Cannula 2.0 07/30/20 07:45 97.7 Laboratory Data Labs 24H Laboratory Tests 2 07/30/20 06:10: POC Troponin I (Misc) 0.00 07/30/20 06:11: Immature Granulocyte % (Auto) 0.4, Neutrophils (%) (Auto) 64.6, Lymphocytes (%) (Auto) 22.4L, Monocytes (%) (Auto) 8.3H, Eosinophils (%) (Auto) 3.5H, Basophils (%) (Auto) 0.8, Neutrophils # (Auto) 1.6, Lymphocytes # (Auto) 0.6L, Monocytes # (Auto) 0.2, Eosinophils # (Auto) 0.1, Basophils # (Auto) 0.0, Nucleated Red Blood Cells % (auto) 0.0, Immature Platelet Fraction 3.5, Prothrombin Time 14.1H, Prothromb Time International Ratio 1.07, D-Dimer, Quantitative 1568.15H, Anion Gap 3L, Glomerular Filtration Rate > 60.0, Calcium Level 9.2, Total Creatine Kinase 44, Creatine Kinase MB 1.3, Creatine Kinase MB Relative Index 2.95, Troponin I < 0.02, [id number]-Tcq-[id number]-Type Natriuretic Peptide 229H 07/30/20 10:44: Total Creatine Kinase 65, Creatine Kinase MB 1.1, Creatine Kinase MB Relative Index 1.69, Troponin I < 0.02 07/30/20 13:24: CBC/BMP Laboratory Tests 07/30/20 06:11 Home Medications Scheduled Bisoprolol Fumarate (Bisoprolol Fumarate) 5 Mg Tablet, 5 MG PO DAILY Calcium Carbonate (Calcium) 500 Mg Tablet, 1,000 MG PO BID Cyanocobalamin (Vitamin B-12) (Vitamin B-12) 1,000 Mcg Tablet, 1,000 MCG PO DAILY Gabapentin (Gabapentin) 800 Mg Tablet, 800 MG PO BID Gabapentin (Gabapentin) 100 Mg Capsule, 100 MG PO DAILY AFTERNOON Levothyroxine Sodium (Levothyroxine Sodium) 88 Mcg Tablet, 88 MCG PO DAILY Pantoprazole Sodium (Pantoprazole Sodium) 40 Mg Tablet.dr, 40 MG PO BID Potassium Chloride (Potassium Chloride) 20 Meq Tab.er.prt, 20 MEQ PO QHS Spironolactone (Spironolactone) 25 Mg Tablet, 25 MG PO QHS Torsemide (Torsemide) 20 Mg Tablet, 20 MG PO BID 0900, 1500 Trazodone HCl (Trazodone HCl) 150 Mg Tablet, 150 MG PO QHS Venlafaxine HCl (Venlafaxine HCl ER) 75 Mg Cap.er.24h, 75 MG PO DAILY Venlafaxine HCl (Venlafaxine HCl ER) 75 Mg Cap.er.24h, 150 MG PO QHS Vitamin B Complex (Vitamin B Complex) 1 Each Tablet, 1 TAB PO DAILY Scheduled PRN Cyclobenzaprine HCl (Cyclobenzaprine HCl) 10 Mg Tablet, 10 MG PO TID PRN for [facility] [place] SPASMS Docusate Sodium (Dok) 100 Mg Capsule, 100 MG PO BID PRN for CONSTIPATION Loperamide HCl (Imodium A-D) 2 Mg Tablet, 2 MG PO Q4H PRN for DIARRHEA Simethicone (Gas-X) 125 Mg Capsule, 125 MG PO ACHS PRN for GAS PAIN Allergies Coded Allergies: naloxone (Verified Allergy, Unknown, sz, 07/30/20) codeine (Verified Adverse Reaction, Intermediate, CHESP PAIN, 07/30/20) ibuprofen (Verified Adverse Reaction, Intermediate, JOINT/ MUSCLE PAIN, 07/30/20) pregabalin (Verified Adverse Reaction, Intermediate, chest pain, 07/30/20) amoxicillin (Verified Adverse Reaction, Mild, vomiting and diarrhea, 07/30/20) clavulanic acid (Verified Adverse Reaction, Mild, vomiting and diarrhea, 07/30/20) erythromycin base (Verified Adverse Reaction, Mild, vomting diarrhea, 07/30/20) hydromorphone (Verified Adverse Reaction, Mild, ITCHING, 07/30/20) CAN TAKE IF BENADRYL GIVEN PRIOR A-FIB/CHADSVASC A-FIB History Current/History of A-Fib/PAF?: Yes Current PO Anticoag Therapy: No Age/Risk Factor Scoring CHADSVASC: CHADSVASC Response (Comments) Value Age Risk Factor Age < 65 years old 0 Gender Risk Factor Female 1 Hx of CHF Yes 1 Hx of HTN Yes 1 Hx of Stroke/TIA/or VTE Yes 2 Hx of Diabetes No 0 Hx of Vascular Disease Yes 1 Total 6 Treatment Treatment ordered: NONE Other anticoagulant ordered: scd Reason Anticoagulant not given: Other Other reason anticoagulant not: contraindicated Georgie Parks MD Jul 30, 2020 14:14
[2020-07-30] MEDS ORDERED: ALBUTEROL SULFATE 2.5 MG/0.5 ML INH NEB SOLN NEB PRN (14:45)
[2020-07-30] MEDS ORDERED: DOCUSATE SODIUM 100 MG CAP PO PRN (14:45)
[2020-07-30] MEDS ORDERED: CYCLOBENZAPRINE 10MG TABLET PO PRN (14:45)
[2020-07-30] MEDS ORDERED: SIMETHICONE 80 MG CHEW TAB PO PRN (14:45)
[2020-07-30] MEDS ORDERED: NITROGLYCERIN 0.4 MG SUBL TABLET SL PRN (15:15)
[2020-07-30 16:05] VITALS: BP 153/74
[2020-07-30] MEDS: bisoproloL fumarate 5 MG TAB PO SCH (17:01)
[2020-07-30] MEDS: TORSEMIDE 20 MG TAB PO SCH (17:01)
[2020-07-30] MEDS: VENLAFAXINE **XR** 75MG CAPSULE PO SCH (21:02)
[2020-07-30] MEDS: GABAPENTIN 400 MG CAP PO SCH (21:02)
[2020-07-30] MEDS: DOXYCYCLINE HYCLATE 100MG TABLET PO SCH (21:03)
[2020-07-30] MEDS: traZODone 50 MG TAB PO SCH (21:03)
[2020-07-30] MEDS: POTASSIUM CHLORIDE 10 MEQ SR TABLET PO SCH (21:03)
[2020-07-30] MEDS: PANTOPRAZOLE 40MG TAB (PROTONIX) PO SCH (21:04)
[2020-07-30] MEDS: SPIRONOLACTONE 25 MG TAB PO SCH (21:04)
--- NOTE | 2020-07-31 05:01 | REP ---
INDICATION: r/o DVT COMPARISON: None. TECHNIQUE: Coleman scale and color Doppler evaluation using linear high frequency transducer. FINDINGS: Ultrasound examination of the right and left lower extremity deep venous structures from the common femoral vein to the popliteal vein demonstrates normal compressibility flow and wave patterns in response to respiration and augmentation. There is no evidence for deep venous thrombosis. IMPRESSION: No evidence for deep venous thrombosis. <Electronically signed by aJmar Paredes > 07/31/20 0451
[2020-07-31 06:00] VITALS: BP 151/75
[2020-07-31 06:07] LABS: HEMATOCRIT 32.4 % (36.0-47.0); HEMOGLOBIN 10.1 g/dl (12.0-15.5); MEAN CORPUSCULAR HEMOGLOBIN 30.1 pg (27.0-33.0); MEAN CORPUSCULAR HGB CONC 31.2 g/dl (32.0-36.5); MEAN CORPUSCULAR VOLUME 96.7 fl (80.0-96.0); RED BLOOD COUNT 3.35 10^6/uL (4.00-5.40)
[2020-07-31 06:09] LABS: PLATELET COUNT, AUTOMATED 53 10^3/uL (150-450)
[2020-07-31] MEDS: LEVOTHYROXINE 88MCG TABLET (0.088 MG) PO SCH (06:24)
[2020-07-31 06:34] LABS: ALBUMIN 2.7 GM/DL (3.2-5.2); ALT/SGPT 15 U/L (12-78); BILIRUBIN,TOTAL 0.6 MG/DL (0.2-1.0); BLOOD UREA NITROGEN 21 MG/DL (7-18); CALCIUM LEVEL 8.8 MG/DL (8.8-10.2); CARBON DIOXIDE LEVEL 24 MEQ/L (21-32); CHLORIDE LEVEL 109 MEQ/L (98-107); CREATININE FOR GFR 0.74 MG/DL (0.55-1.30); GLOMERULAR FILTRATION RATE > 60.0 (>45); GLUCOSE, FASTING 123 MG/DL (70-100); POTASSIUM SERUM 4.1 MEQ/L (3.5-5.1); SODIUM LEVEL 138 MEQ/L (136-145); TOTAL PROTEIN 5.9 GM/DL (6.4-8.2)
[2020-07-31] MEDS: IPRATROPIUM 0.5MG/ALBUTEROL 2.5MG INH SOL UD 3ML (DUONEB) NEB SCH ×3 (08:00→20:00)
[2020-07-31] MEDS: bisoproloL fumarate 5 MG TAB PO SCH (08:58)
[2020-07-31] MEDS: GABAPENTIN 400 MG CAP PO SCH ×2 (08:58→20:40)
[2020-07-31] MEDS: PANTOPRAZOLE 40MG TAB (PROTONIX) PO SCH ×2 (08:59→20:41)
[2020-07-31] MEDS: TORSEMIDE 20 MG TAB PO SCH ×2 (08:59→17:00)
[2020-07-31] MEDS: VENLAFAXINE **XR** 75MG CAPSULE PO SCH ×2 (08:59→20:40)
[2020-07-31] MEDS: GABAPENTIN 100 MG CAP PO SCH (09:00)
[2020-07-31] MEDS: DOXYCYCLINE HYCLATE 100MG TABLET PO SCH ×2 (09:00→20:41)
[2020-07-31] MEDS: CYANOCOBALAMIN 500 MCG TAB PO SCH (09:00)
[2020-07-31] MEDS ORDERED: AZIT500T5 PO (10:37)
[2020-07-31] MEDS ORDERED: CEFU50TA PO (10:37)
[2020-07-31] MEDS: cefTRIAXone SOD 1 GM in D5W MINI-BAG PLUS 50 ML IV SCH (13:25)
--- NOTE | 2020-07-31 13:56 | DS.PDOC ---
Discharge Summary General Date of Admission Jul 30, 2020 at 04:53 Date of Discharge 07/31/20 Attending Physician: Georgie Parks MD Discharge Summary HISTORY OF PRESENT ILLNESS: Patient is a 64 y/o F with PMH Alpha-1 antitrypsin deficiency, LISA, chronic diastolic heart failure, compensated with preserved ejection fraction., pancytopenia 2/2 to splenomegaly, neuropathy, history of recurrent GI bleed attributed to rectal fissures, prepyloric erosion, hiatial hernia, antral gastr itis, antral ulcers, distal esophagitis, AVMs, and gastric antral vascular ectasia (GAVE), GERD, IBS, hx of DVT s/p IVC filter placement, CVA, hx of community acquired pneumonia and portal hypertension who presented to [facility] ER with chief complaint of incr SOB, chest pain beginning evening of 07/29/20. Patient describes substernal chest pain 8 out of 10, pressure-like, constant. She also says it was increased with deep breathing. Other associated symptoms include increased shortness of breath, nausea, increased lethargy, decreased appetite for the past several days. She had similar symptoms several years ago when she was admitted for pneumonia, chest pain. She denies vomiting, sick cont acts, recent hospitalizations in the past 3 months, fevers, chills, weight loss. Due to her chest pain the patient came to the emergency room to get further examined. In the ER, VS showed BP elevated at 170-180 systolic. HR 50-60 sinus. ECG showed sinus bradycardia. Pain resolved by time of arrival to ER. It was not recreatable on palpation. DDimer was done and elevated at 1568. COVID neg. She h as a history of DVT with IVC filter placement so PE could not be ruled out. Trop neg x2, BNP minimally elevated at 200. IV access was poor so contrast with CT could not be done to r/o PE. CT chest without contrast: Areas of mild patchy atelectasis or infiltrate in both lungs superimposed on chronic fibrotic change. Moderate cardiomegaly. She was placed on 4 L NC to help with oxygenation, at baseline patient uses 2 L NC atc. WBC and PLTs are low and near her baseline, chronically low. Patient was admitted for community acquired pneumonia, chest pain r/o PE with history of DVT. HOSPITAL COURSE: Patient was transitioned to 2 L NC, home amount overnight. Third troponin neg so ACS ruled out. No events on tele overnight. In the AM, patient performed with PT well. We discussed likely needing PICC placed for IV contrast for CT with contrast to be done to r/o PE. Patient asked if a PE could be what was causing her increased SOB at home at times. I told her yes it could. She opted to not proceed with CT chest with contrast due to her wanting to go home. Risks of not diagnosing a possible PE discussed, including , etc. She stated that if she should get SOB at home again she would come back to the ER to be evaluated at this time. She has remained NS, has not had any tachycardia and no longer has chest pain since last evening. We will make f/u appointment with PCP prior to discharge. Sputum culture is pending but I will follow up on this after discharge and notify if needing to change abx regimen. At discharge she denied chest pain, n/v/d, increased shortness of breath, fevers, chills, increased weakness. PAST MEDICAL HISTORY: Alpha-1 antitrypsin deficiency LISA Chronic diastolic heart failure, compensated with preserved ejection fraction. Pancytopenia Neuropathy History of recurrent GI bleed attributed to rectal fissures, prepyloric erosion, hiatial hernia, antral gastritis, antral ulcers, distal esophagitis, AVMs, and gastric antral vascular ectasia (GAVE) GERD Irritable bowel syndrome Optic migraines Dyslipidemia Chronic Depression History of vitamin B12 deficiency History of seizures started in 1975, resolved in 1982 History of DVT 2, status post IVC filter placement in 1999 Remote history of CVA with transient left-sided weakness Morbid obesity Per chart review, history of acquired hypothyroidism Unsteady gait at baseline she walks with a walker Hx of community-acquired pneumonia 02/2019 Pancytopenia secondary to splenomegaly due to alpha-1 antitrypsin and cirrhosis and portal hypertension. Portal hypertension Chronic neuropathy Morbid obesity, body mass index (BMI) of 59 Suspected obstructive sleep apnea. Chronic thrombocytopenia Chronic leukopenia Hx of atrial fibrillation PAST SURGICAL HISTORY: Status post tonsillectomy with adenoidectomy Status post appendectomy Status post 2 Status post tubal ligation Status post sport for a laparoscopy due to pelvic pain and heavy bleeding Status post partial hysterectomy. Status post left ovarian cystectomy 2 Status post cholecystectomy Status post hemorrhoidectomy History of left lower abdominal incarcerated hernia repair Status post colostomy replacement and reversal 2 years later History of rectal fissurectomy with double skin graft History of ventral mid and upper abdominal hernias, status post mesh placement SOCIAL HISTORY: She does not smoke, drink or do drugs. Lives with daughter locally. Follows with: PCP, Cardiology-Dr. vickers, Pulmonary- Dr. Tillman, GI- Dr. Shirley, Heme/onc- Dr. Aguirre. Full Code. HCP- daughter Adore Jaimes FAMILY HISTORY: Father- had breast cancer. at 75 y/o Mother ALS, at 79 y/o. One of her brothers had esophageal and stomach cancer ALLERGIES: Please see below. HOME MEDICATIONS: Please see below. PHYSICAL EXAMINATION: VS: please see below CONSTITUTIONAL: No acute distress, resting comfortably, AAO x 3 EYES: PERRLA, EOM intact HENT, MOUTH: Normocephalic, atraumatic, moist mphadenopathy, no carotid bruit CV: Regular rate and rhymucous membranes, nasal cannula in place NECK: large diameter neck, SUPPLE, no JVD, no lythm, S1S2 normal, no murmurs/rubs/gallops CHEST: IV in right chest wall RESPIRATORY: Decreased breath sounds bilaterally, no rales/rhonchi/wheezes GI: obese abdomen, BS positive in 4 quadrants, soft, nontender, nondistended, no rebound or guarding, no organomegaly : Deferred MUSCULOSKELETAL: Normal ROM. No cyanosis, clubbing, swelling, joint deformity, extremity edema INTEGUMENTARY: no rashes, no lesions, no erythema. Chronic skin changes in b/l lower ext, healed prior wounds. Skin tear on right anterior lucero, left dorsal area of foot- appear clean, nonsuppurative, no foul smell NEUROLOGIC: Cranial Nerves II-XII are intact, no focal deficits PSYCHIATRIC: Mood and affect are normal LABORATORY DATA: Please see below IMAGING: CT chest without contrast: Areas of mild patchy atelectasis or infiltrate in both lungs superimposed on chronic fibrotic change. Moderate cardiomegaly. Cirrhotic changes of the liver with splenomegaly Doppler LE pending ASSESSMENT: 64 y/o F with PMH Alpha-1 antitrypsin deficiency, LISA, chronic diastolic heart failure- compensated with preserved ejection fraction., pancytopenia 2/2 to splenomegaly, neuropathy, history of recurrent GI bleed attributed to rectal fissures, prepyloric erosion, hiatial hernia, antral gastritis, antral ulcers, distal esophagitis, AVMs, and gastric antral vascular ectasia (GAVE), GERD, IBS, hx of DVT s/p IVC filter placement, CVA, hx of community acquired pneumonia portal hypertension admitted for further treatment of admitted for community acquired pneumonia, chest pain r/o PE with history of DVT. PLAN: #Chest pain atypical, cannot r/o 2/2 to pneumonia- resolved. Cannot r/o PE -Trop neg x 3, CT chest without contrast above. BNP 200, d dimer 1568 -No tachycardia and no longer having pleuritic pain -Currently on 2 L NC, home amount -C/w treatment for PNA below, BB -Option to do CTA chest refused by patient as inpatient. # Community Acquired PNA -Hx of alpha-1 antitrypsin deficiency, recurrent PNA this year which can complicate course -WBC low 2/2 to pancytopenia- chronic -CT chest above -BCx, sputum cx- will follow up -Discharged home with ceftin, azithromycin PO x 7 days after discharge -Follows with Dr. Tillman o/p, pulmonology # Pancytopenia secondary to splenomegaly due to alpha-1 antitrypsin and cirrhosis and portal hypertension -WBC and PlTs at baseline -Follows with Dr. Aguirre o/p #LISA -AST/ALT wnl -Denies abd pain -Follows with GI o/p # Chronic HFpEF -BNP mildly elevated, not believed to be in fluid overload or exacerbation -C/w all cardiac medications # Peripheral neuropathy -Stable -C/w home meds # History of recurrent GI bleed attributed to rectal fissures, prepyloric erosion, hiatial hernia, antral gastritis, antral ulcers, distal esophagitis, AVMs, and gastric antral vascular ectasia (GAVE) -Holding off on anticoagulating -SCDs, teds -IVC filter placed from 1999 #Hx of DVTx, IVC filter -No AC -SCD, teds #GERD -PPI #DVT px -SCD, teds DISPOSITION: Discharged today with risks of not having CTA chest done, patient states she will let someone know if chest pain, shortness of breath returns. TOTAL AMOUNT OF TIME SPENT ON DISCHARGE: 35 mins Vital Signs/I&Os Vital Signs Date Time Temp Pulse Resp B/P (MAP) Pulse Ox O2 Delivery O2 Flow Rate FiO2 07/31/20 09:00 2.0 07/31/20 08:58 82 148/76 07/31/20 06:00 96.4 20 95 07/30/20 16:05 Nasal Cannula I&O- Last 24 Hours up to 6 AM 07/31/20 06:00 Intake Total 950 ml Output Total 1200 ml Balance -250 ml Laboratory Data Labs 24H Laboratory Tests 2 07/30/20 15:32: Troponin I < 0.02 07/31/20 05:56: Nucleated Red Blood Cells % (auto) 0.0, Anion Gap 5L, Glomerular Filtration Rate > 60.0, Calcium Level 8.8, Total Bilirubin 0.6, Aspartate Amino Transf (AST/S GOT) 24, Alanine Aminotransferase (ALT/SGPT) 15, Alkaline Phosphatase 92, Total Protein 5.9L, Albumin 2.7L, Albumin/Globulin Ratio 0.8L 07/31/20 11:36: Lab Scanned Report Miscellaneous Lab CBC/BMP Laboratory Tests 07/31/20 05:56 Microbiology Microbiology 07/30/20 Blood Culture, Received Pending 07/30/20 Blood Culture, Received Pending 07/30/20 Gram Stain, Received Pending 07/30/20 Sputum Culture, Received Pending Discharge Medications Scheduled Azithromycin (Azithromycin) 500 Mg Tablet, 500 MG PO DAILY Bisoprolol Fumarate (Bisoprolol Fumarate) 5 Mg Tablet, 5 MG PO DAILY, (Reported) Calcium Carbonate (Calcium) 500 Mg Tablet, 1,000 MG PO BID, (Reported) Cefuroxime Axetil (Cefuroxime) 500 Mg Tablet, 500 MG PO BID Cyanocobalamin (Vitamin B-12) (Vitamin B-12) 1,000 Mcg Tablet, 1,000 MCG PO DAILY, (Reported) Gabapentin (Gabapentin) 800 Mg Tablet, 800 MG PO BID, (Reported) Gabapentin (Gabapentin) 100 Mg Capsule, 100 MG PO DAILY, (Reported) AFTERNOON Levothyroxine Sodium (Levothyroxine Sodium) 88 Mcg Tablet, 88 MCG PO DAILY, (Reported) Pantoprazole Sodium (Pantoprazole Sodium) 40 Mg Tablet.dr, 40 MG PO BID, (Reported) Potassium Chloride (Potassium Chloride) 20 Meq Tab.er.prt, 20 MEQ PO QHS, (Reported) Spironolactone (Spironolactone) 25 Mg Tablet, 25 MG PO QHS, (Reported) Torsemide (Torsemide) 20 Mg Tablet, 20 MG PO BID, (Reported) 0900, 1500 Trazodone HCl (Trazodone HCl) 150 Mg Tablet, 150 MG PO QHS, (Reported) Venlafaxine HCl (Venlafaxine HCl ER) 75 Mg Cap.er.24h, 75 MG PO DAILY, (Reported) Venlafaxine HCl (Venlafaxine HCl ER) 75 Mg Cap.er.24h, 150 MG PO QHS, (Reported) Vitamin B Complex (Vitamin B Complex) 1 Each Tablet, 1 TAB PO DAILY, (Reported) Scheduled PRN Cyclobenzaprine HCl (Cyclobenzaprine HCl) 10 Mg Tablet, 10 MG PO TID PRN for MUSCLE SPASMS, (Reported) Docusate Sodium (Dok) 100 Mg Capsule, 100 MG PO BID PRN for CONSTIPATION, (Reported) Loperamide HCl (Imodium A-D) 2 Mg Tablet, 2 MG PO Q4H PRN for DIARRHEA, (Repo rted) Simethicone (Gas-X) 125 Mg Capsule, 125 MG PO ACHS PRN for GAS PAIN, (Reported) Allergies Coded Allergies: naloxone (Verified Allergy, Unknown, sz, 07/30/20) codeine (Verified Adverse Reaction, Intermediate, CHESP PAIN, 07/30/20) ibuprofen (Verified Adverse Reaction, Intermediate, JOINT/ MUSCLE PAIN, 07/30/20) pregabalin (Verified Adverse Reaction, Intermediate, chest pain, 07/30/20) amoxicillin (Verified Adverse Reaction, Mild, vomiting and diarrhea, 07/30/20) clavulanic acid (Verified Adverse Reaction, Mild, vomiting and diarrhea, 07/30/20) erythromycin base (Verified Adverse Reaction, Mild, vomting diarrhea, 07/30/20) hydromorphone (Verified Adverse Reaction, Mild, ITCHING, 07/30/20) CAN TAKE IF BENADRYL GIVEN PRIOR Georgie Parks MD Jul 31, 2020 13:56
[2020-07-31 14:00] VITALS: BP 142/65
--- NOTE | 2020-07-31 14:09 | ECGEPIP ---
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
--- NOTE | 2020-07-31 15:53 | IPNPDOC ---
Date Seen The patient was seen on 07/31/20. Progress Note SUBJECTIVE: Intially chose not to stay for CTA chest, later changed her mind. PICC ordered, CTA hopeful for after line placed to r/o PE. High risk for PE: hx of DVTs, cannot be anticoagulated but has [place] filter in place. She denies pleuritic pain today but still has SOB with activity, she says has gradually worsened. She denies current chest pain, incr shortness of breath, n/v/d and is on home O2. OBJECTIVE: PHYSICAL EXAMINATION: VS: please see below CONSTITUTIONAL: No acute distress, resting comfortably, AAO x 3 EYES: PERRLA, EOM intact HENT, MOUTH: Normocephalic, atraumatic, moist mphadenopathy, no carotid bruit CV: Regular rate and rhymucous membranes, nasal cannula in place NECK: large diameter neck, SUPPLE, no JVD, no lythm, S1S2 normal, no murmurs/rubs/gallops CHEST: IV in right chest wall RESPIRATORY: Decreased breath sounds bilaterally, no rales/rhonchi/wheezes GI: obese abdomen, BS positive in 4 quadrants, soft, nontender, nondistended, no rebound or guarding, no organomegaly : Deferred MUSCULOSKELETAL: Normal ROM. No cyanosis, clubbing, swelling, joint deformity, extremity edema INTEGUMENTARY: no rashes, no lesions, no erythema. Chronic skin changes in b/l lower ext, healed prior wounds. Skin tear on right anterior lucero, left dorsal area of foot- appear clean, nonsuppurative, no foul smell NEUROLOGIC: Cranial Nerves II-XII are intact, no focal deficits PSYCHIATRIC: Mood and affect are normal LABORATORY DATA: Please see below IMAGING: CT chest without contrast: Areas of mild patchy atelectasis or infiltrate in both lungs superimposed on chronic fibrotic change. Moderate cardiomegaly. Cirrhotic changes of the liver with splenomegaly Doppler LE pending ASSESSMENT: 64 y/o F with PMH Alpha-1 antitrypsin deficiency, LISA, chronic d iastolic heart failure- compensated with preserved ejection fraction., pancytopenia 2/2 to splenomegaly, neuropathy, history of recurrent GI bleed attributed to rectal fissures, prepyloric erosion, hiatial hernia, antral gastritis, antral ulcers, distal esophagitis, AVMs, and gastric antral vascular ectasia (GAVE), GERD, IBS, hx of DVT s/p IVC filter placement, CVA, hx of community acquired pneumonia portal hypertension admitted for further treatment of admitted for community acquired pneumonia, chest pain r/o PE with history of DVT. PLAN: #Chest pain atypical, cannot r/o 2/2 to pneumonia- resolved. Cannot r/o PE -Trop neg x 3, CT chest without contrast above. BNP 200, d dimer 1568 -Currently on 2 L NC, home amount -C/w treatment for PNA below, BB -PICC line tomorrow then CTA chest to r/o PE # Community Acquired PNA -Hx of alpha-1 antitrypsin deficiency, recurrent PNA this year which can complicate course -WBC low 2/2 to pancytopenia- chronic -CT chest above -BCx, sputum cx- pending -C/w current ceftriaxone, doxy (Day 2) -Follows with Dr. Tillman o/p, pulmonology # Pancytopenia secondary to splenomegaly due to alpha-1 antitrypsin and cirrhosis and portal hypertension -WBC and PlTs at baseline -Follows with Dr. Aguirre o/p #LISA -AST/ALT wnl -Denies abd pain -Follows with GI o/p # Chronic HFpEF -BNP mildly elevated, not believed to be in fluid overload or exacerbation -C/w all cardiac medications # Peripheral neuropathy -Stable -C/w home meds # History of recurrent GI bleed attributed to rectal fissures, prepyloric erosion, hiatial hernia, antral gastritis, antral ulcers, distal esophagitis, AVMs, and gastric antral vascular ectasia (GAVE) -Holding off on anticoagulating -SCDs, teds -IVC filter placed from 1999 #Hx of DVTx, IVC filter -No AC -SCD, teds #GERD -PPI #DVT px -SCD, teds DISPOSITION: Opted to say for CTA chest to r/o PE, patient is high risk with history. Discharge home when medically cleared. VS, I&O, 24H, Fishbone Vital Signs/I&O Vital Signs Date Time Temp Pulse Resp B/P (MAP) Pulse Ox O2 Delivery O2 Flow Rate FiO2 07/31/20 14:00 97.9 61 19 142/65 (90) 96 Nasal Cannula 2.0 I&O- Last 24 Hours up to 6 AM 07/31/20 06:00 Intake Total 950 ml Output Total 1200 ml Balance -250 ml Laboratory Data 24H LABS Laboratory Tests 2 07/31/20 05:56: Nucleated Red Blood Cells % (auto) 0.0, Anion Gap 5L, Glomerular Filtration Rate > 60.0, Calcium Level 8.8, Total Bilirubin 0.6, Aspartate Amino Transf (AST/SGOT) 24, Alanine Aminotransferase (ALT/SGPT) 15, Alkaline Phosphatase 92, Total Protein 5.9L, Albumin 2.7L, Albumin/Globulin Ratio 0.8L 07/31/20 11:36: Lab Scanned Report Miscellaneous Lab CBC/BMP Laboratory Tests 07/31/20 05:56 Microbiology Microbiology 07/30/20 Blood Culture, Received Pending 07/30/20 Blood Culture - Preliminary, Resulted No growth after 24 hours . All specim... 07/30/20 Gram Stain - Final, Complete 07/30/20 Sputum Culture - Final, Complete Current Medications Current Medications Medications (Trade) Dose Ordered Sig/Radha Route PRN Reason Start Time Stop Time Status Last Admin Dose Admin Albuterol Sulfate (Proventil Neb) 2.5 mg Q2HP PRN NEB SOB/WHEEZING 07/30/20 14:45 Albuterol/ Ipratropium (Duoneb (Ipr 0.5mg/Alb 2.5mg)) 3 ml RQ6H NEB 07/30/20 20:00 Bisoprolol Fumarate (Zebeta) 5 mg DAILY PO 07/30/20 09:00 07/31/20 08:58 Ceftriaxone Sodium 1 gm/ Dextrose 50 ml @ 100 mls/hr Q24H IV 07/31/20 13:00 07/31/20 13:25 Cyanocobalamin (Vitamin B12) 1,000 mcg DAILY PO 07/31/20 09:00 07/31/20 09:00 Cyclobenzaprine HCl (Flexeril) 10 mg TID PRN PO MUSCLE SPASMS 07/30/20 14:45 Docusate Sodium (Colace) 100 mg BID PRN PO CONSTIPATION 07/30/20 14:45 Doxycycline Hyclate (Vibramycin) 100 mg BID PO 07/30/20 21:00 07/31/20 09:00 Gabapentin (Neurontin) 100 mg DAILY PO 07/31/20 09:00 07/31/20 09:00 Gabapentin (Neurontin) 800 mg BID PO 07/30/20 21:00 07/31/20 08:58 Home Med (Med Rec Complete!) ASDIRECTED XX 07/30/20 13:15 07/30/20 13:08 DC Levothyroxine Sodium (Synthroid) 88 mcg DAILY@0600 PO 07/31/20 06:00 07/31/20 06:24 Nitroglycerin (Nitrostat (1/ 150)) 0.4 mg Q5MP PRN SL CHEST PAIN 07/30/20 15:15 Pantoprazole Sodium (Protonix) 40 mg BID PO 07/30/20 21:00 07/31/20 08:59 Potassium Chloride (Micro-K Extencaps) 20 meq QHS PO 07/30/20 21:00 07/30/20 21:03 Simethicone (Mylicon) 120 mg QIDP PRN PO GAS PAIN 07/30/20 14:45 Spironolactone (Aldactone) 25 mg QHS PO 07/30/20 21:00 07/30/20 21:04 Torsemide (Demadex) 20 mg BID@0900,1700 PO 07/30/20 17:00 07/31/20 08:59 Trazodone HCl (Desyrel) 150 mg QHS PO 07/30/20 21:00 07/30/20 21:03 Venlafaxine HCl (Effexor Xr) 75 mg DAILY PO 07/30/20 09:00 07/30/20 15:00 DC Venlafaxine HCl (Effexor Xr) 75 mg DAILY PO 07/31/20 09:00 07/31/20 08:59 Venlafaxine HCl (Effexor Xr) 150 mg QHS PO 07/30/20 21:00 07/30/20 21:02 Allergies Coded Allergies: naloxone (Verified Allergy, Unknown, sz, 07/30/20) codeine (Verified Adverse Reaction, Intermediate, CHESP PAIN, 07/30/20) ibuprofen (Verified Adverse Reaction, Intermediate, JOINT/ MUSCLE PAIN, 07/30/20) pregabalin (Verified Adverse Reaction, Intermediate, chest pain, 07/30/20) amoxicillin (Verified Adverse Reaction, Mild, vomiting and diarrhea, 07/30/20) clavulanic acid (Verified Adverse Reaction, Mild, vomiting and diarrhea, 07/30/20) erythromycin base (Verified Adverse Reaction, Mild, vomting diarrhea, 07/30/20) hydromorphone (Verified Adverse Reaction, Mild, ITCHING, 07/30/20) CAN TAKE IF BENADRYL GIVEN PRIOR Georgie Parks MD Jul 31, 2020 15:53
[2020-07-31] MEDS ORDERED: ISOVUE-370 76% 100ML VIAL As Ordered ONE (16:29)
[2020-07-31] MEDS: traZODone 50 MG TAB PO SCH (20:40)
[2020-07-31] MEDS: POTASSIUM CHLORIDE 10 MEQ SR TABLET PO SCH (20:41)
[2020-07-31] MEDS: SPIRONOLACTONE 25 MG TAB PO SCH (20:41)
[2020-07-31 22:00] VITALS: BP 122/52
[2020-08-01] MEDS: IPRATROPIUM 0.5MG/ALBUTEROL 2.5MG INH SOL UD 3ML (DUONEB) NEB SCH ×3 (02:07→14:00)
[2020-08-01] MEDS: LEVOTHYROXINE 88MCG TABLET (0.088 MG) PO SCH (05:58)
[2020-08-01 06:00] VITALS: BP 144/60
[2020-08-01 06:34] LABS: HEMATOCRIT 32.8 % (36.0-47.0); HEMOGLOBIN 9.9 g/dl (12.0-15.5); MEAN CORPUSCULAR HEMOGLOBIN 29.6 pg (27.0-33.0); MEAN CORPUSCULAR HGB CONC 30.2 g/dl (32.0-36.5); MEAN CORPUSCULAR VOLUME 98.2 fl (80.0-96.0); RED BLOOD COUNT 3.34 10^6/uL (4.00-5.40); WHITE BLOOD COUNT 2.9 10^3/uL (4.0-10.0)
[2020-08-01 06:35] LABS: PLATELET COUNT, AUTOMATED 57 10^3/uL (150-450)
[2020-08-01 06:54] LABS: ALBUMIN 2.8 GM/DL (3.2-5.2); ALT/SGPT 16 U/L (12-78); BILIRUBIN,TOTAL 0.7 MG/DL (0.2-1.0); BLOOD UREA NITROGEN 24 MG/DL (7-18); CALCIUM LEVEL 8.8 MG/DL (8.8-10.2); CARBON DIOXIDE LEVEL 30 MEQ/L (21-32); CHLORIDE LEVEL 109 MEQ/L (98-107); GLOMERULAR FILTRATION RATE > 60.0 (>45); GLUCOSE, FASTING 83 MG/DL (70-100); POTASSIUM SERUM 4.3 MEQ/L (3.5-5.1); SODIUM LEVEL 142 MEQ/L (136-145); TOTAL PROTEIN 5.5 GM/DL (6.4-8.2)
[2020-08-01] MEDS: GABAPENTIN 400 MG CAP PO SCH (09:06)
[2020-08-01] MEDS: VENLAFAXINE **XR** 75MG CAPSULE PO SCH (09:06)
[2020-08-01] MEDS: DOXYCYCLINE HYCLATE 100MG TABLET PO SCH (09:06)
[2020-08-01 09:07] VITALS: BP 141/60
[2020-08-01] MEDS: TORSEMIDE 20 MG TAB PO SCH (09:07)
[2020-08-01] MEDS: CYANOCOBALAMIN 500 MCG TAB PO SCH (09:07)
[2020-08-01] MEDS: GABAPENTIN 100 MG CAP PO SCH (09:07)
[2020-08-01] MEDS: PANTOPRAZOLE 40MG TAB (PROTONIX) PO SCH (09:07)
[2020-08-01] MEDS: bisoproloL fumarate 5 MG TAB PO SCH (09:07)
[2020-08-01] MEDS ORDERED: LIDOCAINE 1% MDV 20ML VIAL As Ordered ONE (09:46)
[2020-08-01] MEDS ORDERED: ISOVUE-370 76% 100ML VIAL As Ordered ONE (10:23)
[2020-08-01] MEDS ORDERED: SODIUM CHLORIDE 0.9% INJ 10 ML SYR IV PRN (11:30)
--- NOTE | 2020-08-01 12:00 | REP ---
INDICATION: r/o PE. COMPARISON: 07/30/2020, 02/15/2020. TECHNIQUE: CT angiogram chest performed following the intravenous administration of 100 cc of Isovue 370. Sagittal and coronal reconstruction images are performed. FINDINGS: Lungs: Chronic fibrotic changes are again noted. A mild patchy atelectasis/infiltrate in the right lower lobe has mildly increased. Mild patchy atelectasis/infiltrate in the left lung are unchanged. Mediastinum: No adenopathy. Pulmonary arteries: There is a pulmonary embolism focally in the medial basilar segment of the right lower lobe. Samantha: No adenopathy. Axilla: No adenopathy. Pleura: No effusion. Heart: Moderate cardiomegaly is again noted. Thoracic aorta: No aneurysm or dissection. Upper abdominal structures: IVC filter is noted. The liver appears cirrhotic. There has been a prior cholecystectomy. There is splenomegaly. Visualized osseous structures: Mild degenerative changes. IMPRESSION: Chronic changes in the lungs. Mild increase in atelectasis/infiltrate right lower lobe. No change atelectasis/infiltrate left lung. Moderate cardiomegaly. Isolated focal pulmonary embolism in the medial basilar segment of the right lower lobe. <Electronically signed by Alejandro Coleman > 08/01/20 1252
[2020-08-01] MEDS: cefTRIAXone SOD 1 GM in D5W MINI-BAG PLUS 50 ML IV SCH (13:43)
[2020-08-01] MEDS ORDERED: ELIQ2.5T PO (13:54)
[2020-08-01 14:00] VITALS: BP 137/62
--- NOTE | 2020-08-01 16:21 | DS.PDOC ---
Discharge Summary General Date of Admission Jul 31, 2020 at 15:53 Date of Discharge 08/01/20 Attending Physician: Georgie Parks MD Discharge Summary HISTORY OF PRESENT ILLNESS: Patient is a 64 y/o F with PMH Alpha-1 antitrypsin deficiency, LISA, chronic diastolic heart failure, compensated with preserved ejection fraction., pancytopenia 2/2 to splenomegaly, neuropathy, history of recurrent GI bleed attributed to rectal fissures, prepyloric erosion, hiatial hernia, antral gastr itis, antral ulcers, distal esophagitis, AVMs, and gastric antral vascular ectasia (GAVE), GERD, IBS, hx of DVT s/p IVC filter placement, CVA, hx of community acquired pneumonia and portal hypertension who presented to [facility] ER with chief complaint of incr SOB, chest pain beginning evening of 07/29/20. Patient describes substernal chest pain 8 out of 10, pressure-like, constant. She also says it was increased with deep breathing. Other associated symptoms include increased shortness of breath, nausea, increased lethargy, decreased appetite for the past several days. She had similar symptoms several years ago when she was admitted for pneumonia, chest pain. She denies vomiting, sick cont acts, recent hospitalizations in the past 3 months, fevers, chills, weight loss. Due to her chest pain the patient came to the emergency room to get further examined. In the ER, VS showed BP elevated at 170-180 systolic. HR 50-60 sinus. ECG showed sinus bradycardia. Pain resolved by time of arrival to ER. It was not recreatable on palpation. DDimer was done and elevated at 1568. COVID neg. She h as a history of DVT with IVC filter placement so PE could not be ruled out. Trop neg x2, BNP minimally elevated at 200. IV access was poor so contrast with CT could not be done to r/o PE. CT chest without contrast: Areas of mild patchy atelectasis or infiltrate in both lungs superimposed on chronic fibrotic change. Moderate cardiomegaly. She was placed on 4 L NC to help with oxygenation, at baseline patient uses 2 L NC atc. WBC and PLTs are low and near her baseline, chronically low. Patient was admitted for community acquired pneumonia, chest pain r/o PE with history of DVT. HOSPITAL COURSE: Patient was transitioned to 2 L NC, home amount overnight. Third troponin neg so ACS ruled out. No events on tele overnight. In the AM, patient performed with PT well. We discussed likely needing PICC placed for IV contrast for CT with contrast to be done to r/o PE. On 08/01/20 patient went for midline placement and later CTA chest. CTA chest showed: Chronic changes in the lungs. Mild increase in atelectasis/infiltrate right lower lobe. No change atelectasis/infiltrate left lung. Moderate cardiomegaly. Isolated focal pulmonary embolism in the medial basilar segment of the right lower lobe. I attempted to get a hold of Dr. Aguirre her metal numerical control programmer; however she was off. I spoke with Dr. Pino, manager of exhibitions and collections metal numerical control programmer who recommended two things: 1. Low dose eliquis BID or 2. lovenox 40 mg SC daily due to her increased risk of bleeding. None of these options would eliminate the risk of bleeding; however, may provide some protection from new clots forming or the existing clot getting bigger. Ultimately it would be her choice. His options were discussed in great detail with the patient who has an extensive history of bleeding. After all risks and benefits were discussed, the patient was hesitant to start anything currently. She did wish for me to send in an Eliquis prescription to her pharmacy in the event that she should want to start this before she follows up with her primary care provider. Early in the afternoon on 08/01/2020 the patient was discharged home to follow-up with her primary care doctor and to further discuss her options for treatment of the pulmonary embolism. She has remained NS, has not had any tachycardia and no longer has chest pain since the night of admission. Sputum culture contaminated but she was sent home with several days of abx for community acquired PNA. At discharge she denied chest pain, n/v/d, increased shortness of breath, fevers, chills, increased weakness. PAST MEDICAL HISTORY: Alpha-1 antitrypsin deficiency LISA Chronic diastolic heart failure, compensated with preserved ejection fraction. Pancytopenia Neuropathy History of recurrent GI bleed attributed to rectal fissures, prepyloric erosion, hiatial hernia, antral gastritis, antral ulcers, distal esophagitis, AVMs, and gastric antral vascular ectasia (GAVE) GERD Irritable bowel syndrome Optic migraines Dyslipidemia Chronic Depression History of vitamin B12 deficiency History of seizures started in 1975, resolved in 1982 History of DVT 2, status post IVC filter placement in 1999 Remote history of CVA with transient left-sided weakness Morbid obesity Per chart review, history of acquired hypothyroidism Unsteady gait at baseline she walks with a walker Hx of community-acquired pneumonia 02/2019 Pancytopenia secondary to splenomegaly due to alpha-1 antitrypsin and cirrhosis and portal hypertension. Portal hypertension Chronic neuropathy Morbid obesity, body mass index (BMI) of 59 Suspected obstructive sleep apnea. Chronic thrombocytopenia Chronic leukopenia Hx of atrial fibrillation PAST SURGICAL HISTORY: Status post tonsillectomy with adenoidectomy Status post appendectomy Status post 2 Status post tubal ligation Status post sport for a laparoscopy due to pelvic pain and heavy bleeding Status post partial hysterectomy. Status post left ovarian cystectomy 2 Status post cholecystectomy Status post hemorrhoidectomy History of left lower abdominal incarcerated hernia repair Status post colostomy replacement and reversal 2 years later History of rectal fissurectomy with double skin graft History of ventral mid and upper abdominal hernias, status post mesh placement SOCIAL HISTORY: She does not smoke, drink or do drugs. Lives with daughter locally. Follows with: PCP, Cardiology-Dr. vickers, Pulmonary- Dr. Tillman, GI- Dr. Shirley, Heme/onc- Dr. Aguirre. Full Code. HCP- daughter Adore Jaimes FAMILY HISTORY: Father- had breast cancer. at 75 y/o Mother ALS, at 79 y/o. One of her brothers had esophageal and stomach cancer ALLERGIES: Please see below. HOME MEDICATIONS: Please see below. PHYSICAL EXAMINATION: VS: please see below CONSTITUTIONAL: No acute distress, resting comfortably, AAO x 3 EYES: PERRLA, EOM intact HENT, MOUTH: Normocephalic, atraumatic, moist mphadenopathy, no carotid bruit CV: Regular rate and rhymucous membranes, nasal cannula in place NECK: large diameter neck, SUPPLE, no JVD, no lythm, S1S2 normal, no murmurs/rubs/gallops CHEST: IV in right chest wall RESPIRATORY: Decreased breath sounds bilaterally, no rales/rhonchi/wheezes GI: obese abdomen, BS positive in 4 quadrants, soft, nontender, nondistended, no rebound or guarding, no organomegaly : Deferred MUSCULOSKELETAL: Normal ROM. No cyanosis, clubbing, swelling, joint deformity, extremity edema INTEGUMENTARY: no rashes, no lesions, no erythema. Chronic skin changes in b/l lower ext, healed prior wounds. Skin tear on right anterior lucero, left dorsal area of foot- appear clean, nonsuppurative, no foul smell NEUROLOGIC: Cranial Nerves II-XII are intact, no focal deficits PSYCHIATRIC: Mood and affect are normal LABORATORY DATA: Please see below IMAGING: CTA chest: Chronic changes in the lungs. Mild increase in atelectasis/infiltrate right lower lobe. No change atelectasis/infiltrate left lung. Moderate cardiomegaly. Isolated focal pulmonary embolism in the medial basilar segment of the right lower lobe. CT chest without contrast: Areas of mild patchy atelectasis or infiltrate in both lungs superimposed on chronic fibrotic change. Moderate cardiomegaly. Cirrhotic changes of the liver with splenomegaly Doppler LE pending ASSESSMENT: 64 y/o F with PMH Alpha-1 antitrypsin deficiency, LISA, chronic diastolic heart failure- compensated with preserved ejection fraction., pancytopenia 2/2 to splenomegaly, neuropathy, history of recurrent GI bleed attributed to rectal fissures, prepyloric erosion, hiatial hernia, antral gastritis, antral ulcers, distal esophagitis, AVMs, and gastric antral vascular ectasia (GAVE), GERD, IBS, hx of DVT s/p IVC filter placement, CVA, hx of community acquired pneumonia portal hypertension admitted for further treatment of admitted for community acquired pneumonia, chest pain r/o PE with history of DVT. PLAN: #Pulmonary embolism -CTA above, d dimer 1568 -Currently saturating well on 2 L NC, home amount. Denies chest pain, no tachycardia -Choices given to patient 1. lovenox daily, 2. eliquis BID per hematology, Dr. Pino -She would like to discuss with family, PCP so did not commit to one or the other -I did send in eliquis BID in the event she should change her mind. Risks and benefits discussed in great detail with patient at the bedside -Symptoms of worsening PE were also discussed with her #Chest pain atypical, poss 2/2 to PNA or PE -Trop neg x 3, CT chest without contrast above. BNP 200 -No tachycardia and no longer having pleuritic pain -Currently on 2 L NC, home amount -C/w treatment for PNA, pulmonary embolism -Option to do CTA chest refused by patient as inpatient. # Community Acquired PNA -Hx of alpha-1 antitrypsin deficiency, recurrent PNA this year which can complicate course -WBC low 2/2 to pancytopenia- chronic -CT chest above -BCx: NG -Sputum cx- contaminated -Discharged home with ceftin, azithromycin PO x 7 days after discharge -Follows with Dr. Tillman o/p, pulmonology # Pancytopenia secondary to splenomegaly due to alpha-1 antitrypsin and cirrhosis and portal hypertension -WBC and PlTs at baseline -Follows with Dr. Aguirre o/p #LISA -AST/ALT wnl -Denies abd pain -Follows with GI o/p # Chronic HFpEF -BNP mildly elevated, not believed to be in fluid overload or exacerbation -C/w all cardiac medications # Peripheral neuropathy -Stable -C/w home meds # History of recurrent GI bleed attributed to rectal fissures, prepyloric erosion, hiatial hernia, antral gastritis, antral ulcers, distal esophagitis, AVMs, and gastric antral vascular ectasia (GAVE) -Holding off on anticoagulating -SCDs, teds -IVC filter placed from 1999 #Hx of DVTx, IVC filter -No AC -SCD, teds #GERD -PPI #DVT px -Send in eliquis; however, she will decide to take or not take DISPOSITION: Discharged today with new diagnoses above. She plans to f/u with PCP 08/12/20. TOTAL AMOUNT OF TIME SPENT ON DISCHARGE: 35 mins Vital Signs/I&Os Vital Signs Date Time Temp Pulse Resp B/P (MAP) Pulse Ox O2 Delivery O2 Flow Rate FiO2 08/01/20 14:00 97.9 52 21 137/62 (87) 98 Nasal Cannula 2.0 I&O- Last 24 Hours up to 6 AM 08/01/20 06:00 Intake Total 1610 ml Output Total 200 ml Balance 1410 ml Laboratory Data Labs 24H Laboratory Tests 2 08/01/20 05:58: Nucleated Red Blood Cells % (auto) 0.0, Immature Platelet Fraction 4.3, Anion Gap 3L, Glomerular Filtration Rate > 60.0, Calcium Level 8.8, Total Bilirubin 0.7, Aspartate Amino Transf (AST/SGOT) 28, Alanine Aminotransferase (ALT/SGPT) 16, Alkaline Phosphatase 85, Total Protein 5.5L, Albumin 2.8L, Albumin/Globulin Ratio 1.0L CBC/BMP Laboratory Tests 08/01/20 05:58 Microbiology Microbiology 07/30/20 Blood Culture - Preliminary, Resulted No growth after 24 hours . All specim... 07/30/20 Blood Culture - Preliminary, Resulted No Growth after 48 hours. All Specime... 07/30/20 Gram Stain - Final, Complete 07/30/20 Sputum Culture - Final, Complete Discharge Medications Scheduled Apixaban (Eliquis) 2.5 Mg Tablet, 2.5 MG PO BID Azithromycin (Azithromycin) 500 Mg Tablet, 500 MG PO DAILY Bisoprolol Fumarate (Bisoprolol Fumarate) 5 Mg Tablet, 5 MG PO DAILY, (Reported) Calcium Carbonate (Calcium) 500 Mg Tablet, 1,000 MG PO BID, (Reported) Cefuroxime Axetil (Cefuroxime) 500 Mg Tablet, 500 MG PO BID Cyanocobalamin (Vitamin B-12) (Vitamin B-12) 1,000 Mcg Tablet, 1,000 MCG PO DAILY, (Reported) Gabapentin (Gabapentin) 800 Mg Tablet, 800 MG PO BID, (Reported) Gabapentin (Gabapentin) 100 Mg Capsule, 100 MG PO DAILY, (Reported) AFTERNOON Levothyroxine Sodium (Levothyroxine Sodium) 88 Mcg Tablet, 88 MCG PO DAILY, (Reported) Pantoprazole Sodium (Pantoprazole Sodium) 40 Mg Tablet.dr, 40 MG PO BID, (Reported) Potassium Chloride (Potassium Chloride) 20 Meq Tab.er.prt, 20 MEQ PO QHS, (Reported) Spironolactone (Spironolactone) 25 Mg Tablet, 25 MG PO QHS, (Reported) Torsemide (Torsemide) 20 Mg Tablet, 20 MG PO BID, (Reported) 0900, 1500 Trazodone HCl (Trazodone HCl) 150 Mg Tablet, 150 MG PO QHS, (Reported) Venlafaxine HCl (Venlafaxine HCl ER) 75 Mg Cap.er.24h, 75 MG PO DAILY, (Reported) Venlafaxine HCl (Venlafaxine HCl ER) 75 Mg Cap.er.24h, 150 MG PO QHS, (Reported) Vitamin B Complex (Vitamin B Complex) 1 Each Tablet, 1 TAB PO DAILY, (Reported) Scheduled PRN Cyclobenzaprine HCl (Cyclobenzaprine HCl) 10 Mg Tablet, 10 MG PO TID PRN for MUSCLE SPASMS, (Reported) Docusate Sodium (Dok) 100 Mg Capsule, 100 MG PO BID PRN for CONSTIPATION, (Reported) Loperamide HCl (Imodium A-D) 2 Mg Tablet, 2 MG PO Q4H PRN for DIARRHEA, (Reported) Simethicone (Gas-X) 125 Mg Capsule, 125 MG PO ACHS PRN for GAS PAIN, (Reported) Allergies Coded Allergies: naloxone (Verified Allergy, Unknown, sz, 07/30/20) codeine (Verified Adverse Reaction, Intermediate, CHESP PAIN, 07/30/20) ibuprofen (Verified Adverse Reaction, Intermediate, JOINT/ MUSCLE PAIN, 07/30/20) pregabalin (Verified Adverse Reaction, Intermediate, chest pain, 07/30/20) amoxicillin (Verified Adverse Reaction, Mild, vomiting and diarrhea, 07/30/20) clavulanic acid (Verified Adverse Reaction, Mild, vomiting and diarrhea, 07/30/20) erythromycin base (Verified Adverse Reaction, Mild, vomting diarrhea, 07/30/20) hydromorphone (Verified Adverse Reaction, Mild, ITCHING, 07/30/20) CAN TAKE IF BENADRYL GIVEN PRIOR Georgie Parks MD Aug 01, 2020 16:21
--- NOTE | 2020-08-01 16:35 | REP ---
PROCEDURE NAME: MIDLINE INSERTION W/ SITERITE CLINICAL INFORMATION: Poor venous access. COMPARISON: None. PROCEDURE DESCRIPTION: The procedure was performed by GORGE Barragan, under the direct supervision of Dr. Dr. Coleman. The risks and benefits of the procedure were explained to the patient and an informed consent was obtained both verbally and written. Directly prior to the start of the procedure a formal time-out was completed in the procedure room. The right medial brachial vein was localized using ultrasound guidance. The skin was prepped and draped in sterile fashion. Two mL of 1% lidocaine 10 mg/mL was used as a local anesthetic. Using ultrasound guidance the right medial brachial vein was cannulated, and a 0.018 guidewire was inserted. The needle was removed and a 4.5 Serbian dilator and peel-away sheath was inserted over the guidewire. A 4.5 Serbian single lumen catheter was cut to a length of 15 cm. The dilator was removed and the catheter was inserted over the guidewire. The peel-away sheath was removed and the catheter was flushed with heparinized saline as per hospital protocol. The catheter was affixed to the skin and a sterile dressing was applied. The patient tolerated the procedure well and there were no immediate complications. CONCLUSION: Mid line insertion into the right medial brachial vein. <Electronically signed by Yvonne Taveras > 08/01/20 1515 <Electronically signed by Alejandro Coleman > 08/01/20 1631
[2020-08-01] MEDS ORDERED: SODIUM CHLORIDE 0.9% INJ 10 ML SYR IV SCH (18:00)
== END 2020-08-01 15:40 | disposition home or self-care (01) | DRG 134 ==
LOC: M ED 04:52 → M ED INP 04:53 → ENRESERV 14:43 → M MSPAV 16:00 → OBSVTOIN 07-31 15:53
PROVIDERS: ADMIT Internal Medicine; ATTEND Internal Medicine
PROC: 05H933Z Insertion of Infusion Device into Right Brachial Vein, Percutaneous Approach (ICD-10-PCS; principal; 2020-08-01 09:30)
DX: I26.99 Other pulmonary embolism without acute cor pulmonale (principal); D61.818 Other pancytopenia; J18.9 Pneumonia, unspecified organism; I50.32 Chronic diastolic (congestive) heart failure; K76.6 Portal hypertension; E88.01 Alpha-1-antitrypsin deficiency; D69.6 Thrombocytopenia, unspecified; G62.9 Polyneuropathy, unspecified; E66.01 Morbid (severe) obesity due to excess calories; Z68.43 Body mass index [BMI] 50.0-59.9, adult; R16.1 Splenomegaly, not elsewhere classified; K75.81 Nonalcoholic steatohepatitis (NASH); K21.9 Gastro-esophageal reflux disease without esophagitis; K58.9 Irritable bowel syndrome, unspecified; F32.9 Major depressive disorder, single episode, unspecified; E78.5 Hyperlipidemia, unspecified; E53.8 Deficiency of other specified B group vitamins; R26.81 Unsteadiness on feet; E03.9 Hypothyroidism, unspecified; G47.33 Obstructive sleep apnea (adult) (pediatric); Z79.899 Other long term (current) drug therapy; Z88.0 Allergy status to penicillin; Z88.1 Allergy status to other antibiotic agents; Z88.5 Allergy status to narcotic agent; Z88.6 Allergy status to analgesic agent; Z88.8 Allergy status to other drugs, medicaments and biological substances; Z86.718 Personal history of other venous thrombosis and embolism; Z95.828 Presence of other vascular implants and grafts; Z20.828 Contact with and (suspected) exposure to other viral communicable diseases

== ENCOUNTER 2020-09-01 18:03 | Emergency (ER) | payer OTHER ==
[~2020-09-01 18:03] MED LIST changes: +AZIT500T5 PO; +CARA1TAB6 PO; +CEFU50TA PO; +ELIQ2.5T PO; +GABA-1171 PO; +LOPE2TAB12 PO; +OYST1TAB PO
[2020-09-01 20:00] LABS: BASO % 0.6 % (0.0-1.0); EOS # 0.1 10^3/uL (0.0-0.5); EOS % 3.2 % (0.0-3.0); HEMOGLOBIN 9.5 g/dl (12.0-15.5); LYMPH # 0.5 10^3/uL (1.5-5.0); LYMPH % 15.9 % (24.0-44.0); MEAN CORPUSCULAR HEMOGLOBIN 28.1 pg (27.0-33.0); MEAN CORPUSCULAR HGB CONC 28.8 g/dl (32.0-36.5); MEAN CORPUSCULAR VOLUME 97.6 fl (80.0-96.0); MONO # 0.2 10^3/uL (0.0-0.8); MONO % 5.5 % (0.0-5.0); NEUTROPHILS # 2.3 10^3/uL (1.5-8.5); NEUTROPHILS % 74.5 % (36.0-66.0); RED BLOOD COUNT 3.38 10^6/uL (4.00-5.40); WHITE BLOOD COUNT 3.1 10^3/uL (4.0-10.0)
[2020-09-01 20:01] LABS: PLATELET COUNT, AUTOMATED 62 10^3/uL (150-450)
[2020-09-01 20:14] LABS: ALT/SGPT 19 U/L (12-78); BILIRUBIN,DIRECT 0.3 MG/DL (0.0-0.2); BILIRUBIN,TOTAL 0.7 MG/DL (0.2-1.0); BLOOD UREA NITROGEN 18 MG/DL (7-18); C REACTIVE PROTEIN QUANTITATIV 0.33 MG/DL (0.00-0.30); CALCIUM LEVEL 8.8 MG/DL (8.8-10.2); CARBON DIOXIDE LEVEL 28 MEQ/L (21-32); CHLORIDE LEVEL 111 MEQ/L (98-107); CK-MB VALUE MASS 1.8 NG/ML (<3.6); CPK CREATINE PHOSPHOKINASE 57 U/L (26-192); CREATININE FOR GFR 0.74 MG/DL (0.55-1.30); GLOMERULAR FILTRATION RATE > 60.0 (>45); GLUCOSE, FASTING 78 MG/DL (70-100); LIPASE 102 U/L (73-393); MB/CK RELATIVE INDEX 3.16 (< OR =4); NT-PRO BNP 384 PG/ML (<125); POTASSIUM SERUM 4.1 MEQ/L (3.5-5.1); SODIUM LEVEL 141 MEQ/L (136-145); TOTAL PROTEIN 5.8 GM/DL (6.4-8.2); TROPONIN I < 0.02 NG/ML (< 0.10)
[2020-09-01 20:49] LABS: ERYTHROCYTE SEDIMENTATION RATE 15 mm/hr (0-30)
--- NOTE | 2020-09-01 21:16 | REPVR ---
PROCEDURE INFORMATION: Exam: US Duplex Left Lower Extremity Veins, Limited Exam date and time: 09/01/2020 9:06 PM Age: 65 years old Clinical indication: Pain; Edema, localized; Lower extremity, left; Leg, upper and leg, lower; Additional info: Swelling and pain R/O dvt TECHNIQUE: Imaging protocol: Real-time Duplex ultrasound of the Left Lower Extremity with 2-D love scale, color Doppler flow and spectral waveform analysis with image documentation. Limited exam focused on the left lower extremity veins. COMPARISON: US Duplex, Ext LOWER veins, bilat 07/30/2020 3:14 PM FINDINGS: Left deep veins: Unremarkable. The common femoral, femoral, proximal profunda femoral and popliteal veins are patent without thrombus. Normal Doppler waveforms. Normal compressibility and/or augmentation response. Left superficial veins: Unremarkable. Saphenofemoral junction is patent without thrombus. Soft tissues: Lower leg edema. IMPRESSION: Lower leg edema. No DVT. Electronically signed by: Mukund Woodard On 09/01/2020 21:16:03 PM
--- NOTE | 2020-09-01 21:17 | REPVR ---
PROCEDURE INFORMATION: Exam: US Duplex Left Upper Extremity Veins, Limited Exam date and time: 09/01/2020 9:06 PM Age: 65 years old Clinical indication: Pain; Edema, localized; Upper extremity, left; Arm, lower; Additional info: Swelling and pain R/O dvt TECHNIQUE: Imaging protocol: Real-time Duplex ultrasound of the Left Upper Extremity with 2-D love scale, color Doppler flow and spectral waveform analysis with image documentation. Limited exam focused on the left upper extremity veins. COMPARISON: No relevant prior studies available. FINDINGS: Left deep veins: Unremarkable. Axillary and brachial veins are patent throughout without thrombus. Normal Doppler waveforms. Normal compressibility and/or augmentation response. Visualized internal jugular and subclavian veins are patent. Left superficial veins: Unremarkable. Visualized cephalic and basilic veins are patent without thrombus. Soft tissues: Apparent edema in the left axillary region. IMPRESSION: Apparent edema in the left axillary region. No DVT. Electronically signed by: Mukund Woodard On 09/01/2020 21:17:02 PM
[2020-09-01] MEDS ORDERED: ISOVUE-370 76% 100ML VIAL As Ordered ONE (22:18)
--- NOTE | 2020-09-01 22:51 | REPVR ---
PROCEDURE INFORMATION: Exam: CT Abdomen And Pelvis With Contrast Exam date and time: 09/01/2020 10:40 PM Age: 65 years old Clinical indication: Abdominal pain; Localized; Left; Additional info: L sided abd pain R/O infectious process TECHNIQUE: Imaging protocol: Computed tomography of the abdomen and pelvis with intravenous contrast. Radiation optimization: All CT scans at this facility use at least one of these dose optimization techniques: automated exposure control; mA and/or kV adjustment per patient size (includes targeted exams where dose is matched to clinical indication); or iterative reconstruction. Contrast material: ISOVUE 370; Contrast volume: 100 ml; Contrast route: INTRAVENOUS (IV); COMPARISON: CT ABD/PEL W/IV CONTRAST ONLY 11/18/2019 3:06 AM FINDINGS: Lungs: Bibasilar atelectasis. Liver: Normal. No mass. Gallbladder and bile ducts: There has been a cholecystectomy. Pancreas: There is diffuse pancreatic atrophy. Spleen: There is moderate to severe splenomegaly with a maximum span of 19 centimeters. No focal abnormalities demonstrated. Adrenal glands: Normal. No mass. Kidneys and ureters: Patchy hypodensities demonstrated in the left kidney. Findings may represent multifocal pyelonephritis or foci of infarction. Stomach and bowel: There is increased feces throughout the colon consistent with constipation. Appendix: No evidence of appendicitis. Intraperitoneal space: Unremarkable. No free air. No significant fluid collection. Vasculature: Filter demonstrated in the inferior vena cava. The aortoiliac vessels demonstrate mild atherosclerotic calcification. Lymph nodes: Unremarkable. No enlarged lymph nodes. Urinary bladder: Unremarkable as visualized. Reproductive: There has been a hysterectomy. Bones/joints: Age-indeterminate compression deformities of L3 and L5. Findings were demonstrated on the prior study of 11/18/2019 and appears stable. Severe central spinal stenosis L3-L4. Soft tissues: Inflammatory changes demonstrated in the left flank may be related to positioning although the possibility of flank hematoma and/ or infection to be excluded clinically. Other findings: Osteoporosis. IMPRESSION: 1. Inflammatory changes demonstrated in the left flank may be related to positioning although the possibility of flank hematoma and/ or infection to be excluded clinically. 2. There has been a cholecystectomy. 3. There is moderate to severe splenomegaly with a maximum span of 19 centimeters. No focal abnormalities demonstrated. 4. There is diffuse pancreatic atrophy. 5. Patchy hypodensities demonstrated in the left kidney. Findings may represent multifocal pyelonephritis or foci of infarction. 6. There has been a hysterectomy. 7. There is increased feces throughout the colon consistent with constipation. COMMENTS: Consistent with the [employer]'s Incidental Findings Committee white paper (J Am Wilner Radiol 2018): Any incidental renal lesion less than 1 cm or classified as too small to characterize, or any incidental cystic renal lesion characterized as simple-appearing, is likely benign. No follow-up imaging is recommended for these lesions per consensus recommendations based on imaging criteria. Electronically signed by: Mukund Woodard On 09/01/2020 22:50:58 PM
--- NOTE | 2020-09-02 00:40 | ECGEPIP ---
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
[2020-09-02] MEDS ORDERED: oxyCODONE 5MG TAB PO ONE (00:45)
[2020-09-02 02:32] LABS: CK-MB VALUE MASS 1.6 NG/ML (<3.6); CPK CREATINE PHOSPHOKINASE 49 U/L (26-192); MB/CK RELATIVE INDEX 3.27 (< OR =4); TROPONIN I < 0.02 NG/ML (< 0.10)
[2020-09-02] MEDS ORDERED: BACTRIM 160MG/800MG DS TAB PO ONE (02:45)
[2020-09-02] MEDS ORDERED: BACT800T5 PO (02:59)
[2020-09-02 03:19] VITALS: BP 135/61
--- NOTE | 2020-09-02 22:51 | ECGEPIP ---
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
[2020-09-06] MEDS ORDERED: CIPR-249 PO (13:52)
== END 2020-09-02 04:01 | disposition home or self-care (01) ==
LOC: M ED 18:03
DX: R22.2 Localized swelling, mass and lump, trunk (principal); I50.9 Heart failure, unspecified; J44.9 Chronic obstructive pulmonary disease, unspecified; I89.0 Lymphedema, not elsewhere classified; K21.9 Gastro-esophageal reflux disease without esophagitis; K31.819 Angiodysplasia of stomach and duodenum without bleeding; K74.60 Unspecified cirrhosis of liver; M81.0 Age-related osteoporosis without current pathological fracture; Z88.0 Allergy status to penicillin; Z88.1 Allergy status to other antibiotic agents; Z88.5 Allergy status to narcotic agent; Z88.8 Allergy status to other drugs, medicaments and biological substances
CPT/HCPCS: 36415; 74177; 80048; 80076; 81001; 82550; 82553; 83605; 83690; 83880; 85025; 85049; 85055; 85652; 86140; 87088; 87186; 93005; 93971; 99284; Q9967

== ENCOUNTER → 2020-09-10 | Outpatient (REF) | payer OTHER ==
[~2020-09-10] MED LIST changes: +BACT800T5 PO; +CIPR-249 PO
[2020-09-10 17:15] LABS: BASO % 0.3 % (0.0-1.0); EOS # 0.1 10^3/uL (0.0-0.5); EOS % 2.2 % (0.0-3.0); HEMOGLOBIN 9.5 g/dl (12.0-15.5); LYMPH # 0.5 10^3/uL (1.5-5.0); LYMPH % 16.8 % (24.0-44.0); MEAN CORPUSCULAR HEMOGLOBIN 28.1 pg (27.0-33.0); MEAN CORPUSCULAR HGB CONC 28.8 g/dl (32.0-36.5); MEAN CORPUSCULAR VOLUME 97.6 fl (80.0-96.0); MONO # 0.2 10^3/uL (0.0-0.8); MONO % 5.9 % (0.0-5.0); NEUTROPHILS # 2.4 10^3/uL (1.5-8.5); NEUTROPHILS % 74.2 % (36.0-66.0); RED BLOOD COUNT 3.38 10^6/uL (4.00-5.40); WHITE BLOOD COUNT 3.2 10^3/uL (4.0-10.0)
[2020-09-10 17:19] LABS: PLATELET COUNT, AUTOMATED 61 10^3/uL (150-450)
[2020-09-10 17:30] LABS: ALBUMIN 3.2 GM/DL (3.2-5.2); ALT/SGPT 18 U/L (12-78); BLOOD UREA NITROGEN 14 MG/DL (7-18); C REACTIVE PROTEIN QUANTITATIV 0.66 MG/DL (0.00-0.30); CARBON DIOXIDE LEVEL 28 MEQ/L (21-32); CHLORIDE LEVEL 108 MEQ/L (98-107); CREATININE FOR GFR 0.78 MG/DL (0.55-1.30); GLOMERULAR FILTRATION RATE > 60.0 (>45); GLUCOSE, FASTING 82 MG/DL (70-100); POTASSIUM SERUM 4.1 MEQ/L (3.5-5.1); SODIUM LEVEL 139 MEQ/L (136-145); TOTAL PROTEIN 5.9 GM/DL (6.4-8.2)
== END ==
LOC: M SFHCPLAZ 15:44
PROVIDERS: ATTEND Physician Assistant
DX: I89.0 Lymphedema, not elsewhere classified (principal); R23.8 Other skin changes; M79.89 Other specified soft tissue disorders

== ENCOUNTER 2020-09-19 15:42 | Inpatient (IN) | payer OTHER ==
[~2020-09-19] VITALS: Ht 162.6 cm; Wt 170.8 kg
[2020-09-19] MEDS ORDERED: NS 500 ML IV ONE (16:45)
--- NOTE | 2020-09-19 18:18 | REPVR ---
PROCEDURE INFORMATION: Exam: US Left Breast Limited Exam date and time: 09/19/2020 5:50 PM Age: 65 years old Clinical indication: Breast pain; Left; Additional info: Possible abscess left breast, redness/pain x 6 days TECHNIQUE: Imaging protocol: Limited ultrasound of Left breast with image documentation, including axilla when performed. Exam focused on the search and evaluation for mass. COMPARISON: No relevant prior studies available. FINDINGS: Breast: No solid or cystic lesions IMPRESSION: No sonographic evidence of malignancy. Annual mammographic screening is recommended unless otherwise clinically indicated. ASSESSMENT: BI-RADS 0 Electronically signed by: Mukund Woodard On 09/19/2020 18:18:29 PM
[2020-09-19 19:36] LABS: BASO % 1.1 % (0.0-1.0); EOS # 0.3 10^3/uL (0.0-0.5); EOS % 9.7 % (0.0-3.0); HEMOGLOBIN 10.6 g/dl (12.0-15.5); LYMPH # 0.6 10^3/uL (1.5-5.0); LYMPH % 19.8 % (24.0-44.0); MEAN CORPUSCULAR HEMOGLOBIN 29.3 pg (27.0-33.0); MEAN CORPUSCULAR HGB CONC 28.6 g/dl (32.0-36.5); MEAN CORPUSCULAR VOLUME 102.2 fl (80.0-96.0); MONO # 0.1 10^3/uL (0.0-0.8); MONO % 4.7 % (0.0-5.0); NEUTROPHILS # 1.8 10^3/uL (1.5-8.5); NEUTROPHILS % 64.3 % (36.0-66.0); RED BLOOD COUNT 3.62 10^6/uL (4.00-5.40); WHITE BLOOD COUNT 2.8 10^3/uL (4.0-10.0)
[2020-09-19 19:53] LABS: PLATELET COUNT, AUTOMATED 45 10^3/uL (150-450)
[2020-09-19 19:55] LABS: ERYTHROCYTE SEDIMENTATION RATE 9 mm/hr (0-30)
[2020-09-19 20:00] LABS: ALBUMIN 3.2 GM/DL (3.2-5.2); ALT/SGPT 20 U/L (12-78); BILIRUBIN,DIRECT 0.3 MG/DL (0.0-0.2); BILIRUBIN,TOTAL 1.1 MG/DL (0.2-1.0); BLOOD UREA NITROGEN 14 MG/DL (7-18); C REACTIVE PROTEIN QUANTITATIV 0.33 MG/DL (0.00-0.30); CALCIUM LEVEL 8.7 MG/DL (8.8-10.2); CARBON DIOXIDE LEVEL 27 MEQ/L (21-32); CHLORIDE LEVEL 111 MEQ/L (98-107); CREATININE FOR GFR 0.67 MG/DL (0.55-1.30); GLOMERULAR FILTRATION RATE > 60.0 (>45); GLUCOSE, FASTING 84 MG/DL (70-100); SODIUM LEVEL 141 MEQ/L (136-145)
[2020-09-19] MEDS ORDERED: ELIQ2.5T PO (21:44)
[2020-09-19] MEDS ORDERED: CIPR-249 PO (21:44)
[2020-09-19] MEDS ORDERED: CEPH500C3 PO (21:45)
[2020-09-19] MEDS ORDERED: MAALOX 30 ML SUSP *UDC PO PRN (22:15)
[2020-09-19] MEDS ORDERED: MOM 30ML SUSPENSION UDC PO PRN (22:15)
--- NOTE | 2020-09-19 22:16 | HPEPDOC ---
[facility] Medical History & Physical Date of Admission Sep 19, 2020 Date of Service: Sep 19, 2020 History and Physical CHIEF COMPLAINT: cellulitis HISTORY OF PRESENT ILLNESS: 65 yo F with a hx of alpha-1 antitrypsin deficiency, LISA cirrhosis, CHF, GERD, recurrent GIB, recurrent PE/DVT, CVA (please see below for rest), presenting with a 2 week history of worsening L arm, L breast, L lower abdomen and L thigh erythematous and painful rash. Patient was seen in outpatient setting and did not respond to 5 days of keflex therapy. She states that the erythematous rash has been spreading and has become more painful. She denies any cuts, or lacerations or falls, although she has had bilateral chornic venous stasis ulcers on anterior legs, although they do not cause her discomfort. Of note, patient has a detailed history of repeated GIB due to gastritis, AVMs and gastric antral vascular ectasia, in addition to frequent falls due to unsteady gait. She also has a history of repeated DVTs and PEs that had required an IVC filter to be placed. Per chart review of her PCP records, patient developed PE in 08/01, and discussion took place that short term AC with eliquis benefits outweigh risks of bleeding. Pateint denies black tarry stools, denny blood per rectum or recent falls, but does report easy bruising with numerous petechiae. Presently taking eliquis 2.5 mg BID. PAST MEDICAL HISTORY: Alpha-1 antitrypsin deficiency LISA Unspecified type of CHF ? Pancytopenia Neuropathy History of recurrent GI bleed attributed to rectal fissures, prepyloric erosion, hiatial hernia, antral gastritis, antral ulcers, distal esophagitis, AVMs, and gastric antral vascular ectasia (GAVE) GERD Irritable bowel syndrome Optic migraines Dyslipidemia Chronic Depression History of vitamin B12 deficiency History of seizures started in 1975, resolved in 1982 History of DVT 2, status post IVC filter placement in 1999 Remote history of CVA with transient left-sided weakness Morbid obesity Per chart review, history of acquired hypothyroidism Unsteady gait at baseline she walks with a walker PAST SURGICAL HISTORY: Status post IVC filter (since 1999) Status post tonsillectomy with adenoidectomy Status post appendectomy Status post 2 Status post tubal ligation Status post sport for a laparoscopy due to pelvic pain and heavy bleeding Status post partial hysterectomy. Status post left ovarian cystectomy 2 Status post cholecystectomy Status post hemorrhoidectomy History of left lower abdominal incarcerated hernia repair Status post colostomy replacement and reversal 2 years later History of rectal fissurectomy with double skin graft History of ventral mid and upper abdominal hernias, status post mesh placement SOCIAL HISTORY: Patient denies smoking Patient denies etoh use Patient denies illicit drug use FAMILY HISTORY: ALLERGIES: Please see below. REVIEW OF SYSTEMS: 10 point review of systems completed as per HPI. HOME MEDICATIONS: Please see below. PHYSICAL EXAMINATION: VITAL SIGNS: please see below General: NAD, comfortable HEENT: PERRLA, EOMI, sclerae clear Neck: supple, normal ROM, no JVD Respiratory: lungs CTAB, no wheeze, no rales, no crackles CVS: RRR, normal S1, S2, no murmurs Abdo: soft, no masses, no hepatosplenomegaly, BS+, no rebound tenderness Skin: painful, non purulent/weeping erythema involving L arm, L breast, L lower abdo and L thigh. Non raised. Chronic appearing venous stasis ulcers on bilateral lower extremities Extremities: 1+ edema, pulses 2+ MSK: no joint deformities, normal ROM Neuro: no focal neuro deficits, moving all 4 extremities, CN2-12 intact. Strength 5/5 in all 4 extremities. No nystagmus. Psych: calm, cooperative, AAO x 3 LABORATORY DATA: See below. IMAGING: L breast US (09/19/20) FINDINGS: Breast: No solid or cystic lesions IMPRESSION: No sonographic evidence of malignancy. Annual mammographic screening is recommended unless otherwise clinically indicated. MICROBIOLOGY: Please see below. ASSESSMENT: 65 yo F with an extensive PMHx (please see HPI), admitted for worsening non purulent cellulitis. Started on empiric vancomycin. . PLAN: #Cellulitis - extensive, affecting L breast, L arm, L thigh - no clear source, possible chronic venous stasis ulcer on bilat LEs, however no visible superimposed cellulitis - WBC 2.8, no fever - LA 1.5 - check procal, MRSA screen - due to rapid progression of erythema, no response to recent PO abx (wo MRSA coverage), will start broad spectrum IV abx, with MRSA coverage - IV vancomycin #L breast skin changes (peau d'orange) - breast US shows no masses - breast cellulitis - treating with vanc #Hyperbilirubinemia - T bili 1.1, D bili 0.3, ALP 126. - check liver US. #CHF - resume meds; torsemide, bisoprolol #Hx of PE - on eliquis 2.5 mg PO BID - high risk of bleeding, per chart review hx of GIB, falls - reviewed PCP notes, from Dr. Chiang on 08/26/20, hematology was consulted for evaluation. 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 #Macrocytic anemia - Hgb 10.6 - MCV 102.2 - patient receiving B12 supplementation - check b12, folate. #Low back pain - c/w flexeril - gabapentin #hypothyroidism - continue synthroid #Sleep disturbance - c/w trazodone #Suspected DASHA - not on CPAP, uses nocturnal O2 - orders for O2. #Depression - trazodone, effexor #Lung nodules, suspicious - follow up with pulm, sees Dr. Tillman DVT ppx: SCDs, TEDs, clemente. Dispo: Admission expected to last more than 2 midnights. PT ordered for history of unsteady gait. Vital Signs Vital Signs Date Time Temp Pulse Resp B/P (MAP) Pulse Ox O2 Delivery O2 Flow Rate FiO2 09/19/20 21:21 98.4 74 16 161/74 (103) 96 Room Air Laboratory Data Labs 24H Laboratory Tests 2 09/19/20 16:36: Anion Gap 3L, Glomerular Filtration Rate > 60.0, Lactic Acid Level 1.5, Calcium Level 8.7L, Total Bilirubin 1.1H, Direct Bilirubin 0.3H, Aspartate Amino Transf (AST/SGOT) 34, Alanine Aminotransferase (ALT/SGPT) 20, Alkaline Phosphatase 126H, C-Reactive Protein, Quantitative 0.33H, Total Protein 6.0L, Albumin 3.2, Albumin/Globulin Ratio 1.1L 09/19/20 19:13: Immature Granulocyte % (Auto) 0.4, Neutrophils (%) (Auto) 64.3, Lymphocytes (%) (Auto) 19.8L, Monocytes (%) (Auto) 4.7, Eosinophils (%) (Auto) 9.7H, Basophils (%) (Auto) 1.1H, Neutrophils # (Auto) 1.8, Lymphocytes # (Auto) 0.6L, Monocytes # (Auto) 0.1, Eosinophils # (Auto) 0.3, Basophils # (Auto) 0.0, Nucleated Red Blood Cells % (auto) 0.0, Immature Platelet Fraction 3.7, Erythrocyte Sedimentation Rate 9, Urine Color YELLOW, Urine Appearance CLEAR, Urine pH 5.0, Urine Specific [place] 1.023, Urine Protein NEGATIVE, Urine Glucose (UA) NEGATIVE, Urine Ketones NEGATIVE, Urine Blood NEGATIVE, Urine Nitrite NEGATIVE, Urine Bilirubin NEGATIVE, Urine Urobilinogen 0.2, Urine Leukocyte Esterase NEGATIVE, Urine WBC (Auto) 0, Urine RBC (Auto) 0, Urine Hyaline Casts (Auto) 0, Urine Bacteria (Auto) NEGATIVE, Urine Squamous Epithelial Cells 5, Urine Mucus (Auto) SMALL, Urine Sperm (Auto) CBC/BMP Laboratory Tests 09/19/20 16:36 09/19/20 19:13 Microbiology Microbiology 09/19/20 Blood Culture, Received Pending Home Medications Scheduled Apixaban (Eliquis) 2.5 Mg Tablet, 2.5 MG PO BID Bisoprolol Fumarate (Bisoprolol Fumarate) 5 Mg Tablet, 5 MG PO BID Calcium Carbonate (Calcium) 500 Mg Tablet, 1,000 MG PO QHS Ciprofloxacin HCl (Cipro) 500 Mg Tablet, 500 MG PO BID started 09/06/20 x 7 days Cyanocobalamin (Vitamin B-12) (Vitamin B-12) 1,000 Mcg Tablet, 1,000 MCG PO DAILY Gabapentin (Gabapentin) 800 Mg Tablet, 800 MG PO BID Gabapentin (Gabapentin) 100 Mg Capsule, 400 MG PO DAILY AFTERNOON Levothyroxine Sodium (Levothyroxine Sodium) 88 Mcg Tablet, 88 MCG PO DAILY Pantoprazole Sodium (Pantoprazole Sodium) 40 Mg Tablet.dr, 40 MG PO BID Potassium Chloride (Potassium Chloride) 20 Meq Tab.er.prt, 20 MEQ PO QHS Torsemide (Torsemide) 20 Mg Tablet, 20 MG PO BID 0900, 1500 Trazodone HCl (Trazodone HCl) 150 Mg Tablet, 150 MG PO QHS Venlafaxine HCl (Venlafaxine HCl ER) 75 Mg Cap.er.24h, 75 MG PO DAILY Venlafaxine HCl (Venlafaxine HCl ER) 75 Mg Cap.er.24h, 150 MG PO QHS Vitamin B Complex (Vitamin B Complex) 1 Each Tablet, 1 TAB PO DAILY cephALEXin (cephALEXin) 500 Mg Capsule, 500 MG PO QID started 09/11/20 x 10 days Scheduled PRN Cyclobenzaprine HCl (Cyclobenzaprine HCl) 10 Mg Tablet, 10 MG PO TID PRN for MUSCLE SPASMS Allergies Coded Allergies: naloxone (Verified Allergy, Unknown, sz, 07/30/20) codeine (Verified Adverse Reaction, Intermediate, CHESP PAIN, 07/30/20) ibuprofen (Verified Adverse Reaction, Intermediate, JOINT/ MUSCLE PAIN, 07/30/20) pregabalin (Verified Adverse Reaction, Intermediate, chest pain, 07/30/20) amoxicillin (Verified Adverse Reaction, Mild, vomiting and diarrhea, 07/30/20) clavulanic acid (Verified Adverse Reaction, Mild, vomiting and diarrhea, 07/30/20) erythromycin base (Verified Adverse Reaction, Mild, vomting diarrhea, 07/30/20) hydromorphone (Verified Adverse Reaction, Mild, ITCHING, 07/30/20) CAN TAKE IF BENADRYL GIVEN PRIOR RUPERTO GOYAL MD Sep 19, 2020 22:16
[2020-09-19] MEDS ORDERED: VANCOMYCIN HCL 750 MG, VIAL MATE ADAPTER 1 EACH in D5W 250 ML IV SCH (22:30)
[2020-09-19] MEDS: VANCOMYCIN HCL 1,000 MG, VIAL MATE ADAPTER 1 EACH in D5W 250 ML IV SCH (23:56)
[2020-09-19] MEDS: VENLAFAXINE **XR** 75MG CAPSULE PO SCH (23:56)
[2020-09-19] MEDS: GABAPENTIN 400 MG CAP PO SCH (23:57)
[2020-09-19] MEDS: traZODone 50 MG TAB PO SCH (23:57)
[2020-09-19] MEDS: bisoproloL fumarate 5 MG TAB PO SCH (23:57)
[2020-09-19] MEDS: APIXABAN 2.5 MG TAB (ELIQUIS) PO SCH (23:57)
[2020-09-20] MEDS ORDERED: VANCOMYCIN HCL 1,000 MG, VIAL MATE ADAPTER 1 EACH in D5W 250 ML IV ONE (01:00)
[2020-09-20] MEDS: MORPHINE 2 MG/ML 1ML VIAL (J2270) IV PRN ×2 (01:03→05:53)
[2020-09-20 02:00] VITALS: BP 150/72
[2020-09-20] MEDS: LEVOTHYROXINE 88MCG TABLET (0.088 MG) PO SCH (05:51)
[2020-09-20 06:00] VITALS: BP 117/52
[2020-09-20] MEDS: APIXABAN 2.5 MG TAB (ELIQUIS) PO SCH ×2 (08:42→20:34)
[2020-09-20] MEDS: VENLAFAXINE **XR** 75MG CAPSULE PO SCH ×2 (08:42→20:32)
[2020-09-20] MEDS: VANCOMYCIN HCL 1,000 MG, VIAL MATE ADAPTER 1 EACH in D5W 250 ML IV SCH ×3 (08:42→15:30)
[2020-09-20] MEDS: CYANOCOBALAMIN 500 MCG TAB PO SCH (08:42)
[2020-09-20] MEDS: DOCUSATE SODIUM 100MG CAPSULE PO SCH ×2 (08:42→20:33)
[2020-09-20] MEDS: GABAPENTIN 400 MG CAP PO SCH ×3 (08:42→20:33)
[2020-09-20] MEDS: PANTOPRAZOLE 40MG TAB (PROTONIX) PO SCH ×2 (08:43→20:32)
[2020-09-20] MEDS: CYCLOBENZAPRINE 10MG TABLET PO PRN (08:46)
[2020-09-20] MEDS: TORSEMIDE 20 MG TAB PO SCH ×2 (08:46→17:55)
[2020-09-20] MEDS: bisoproloL fumarate 5 MG TAB PO SCH ×2 (08:48→20:33)
[2020-09-20 10:54] LABS: HEMOGLOBIN 10.2 g/dl (12.0-15.5); MEAN CORPUSCULAR HEMOGLOBIN 29.7 pg (27.0-33.0); MEAN CORPUSCULAR HGB CONC 28.3 g/dl (32.0-36.5); MEAN CORPUSCULAR VOLUME 104.7 fl (80.0-96.0); RED BLOOD COUNT 3.44 10^6/uL (4.00-5.40); WHITE BLOOD COUNT 3.6 10^3/uL (4.0-10.0)
[2020-09-20 10:58] LABS: PLATELET COUNT, AUTOMATED 65 10^3/uL (150-450)
[2020-09-20 11:14] LABS: BLOOD UREA NITROGEN 12 MG/DL (7-18); CALCIUM LEVEL 8.1 MG/DL (8.8-10.2); CARBON DIOXIDE LEVEL 21 MEQ/L (21-32); CHLORIDE LEVEL 111 MEQ/L (98-107); CREATININE FOR GFR 0.63 MG/DL (0.55-1.30); GLOMERULAR FILTRATION RATE > 60.0 (>45); GLUCOSE, FASTING 120 MG/DL (70-100); POTASSIUM SERUM 3.8 MEQ/L (3.5-5.1); SODIUM LEVEL 140 MEQ/L (136-145)
--- NOTE | 2020-09-20 12:49 | IPNPDOC ---
Date Seen The patient was seen on 09/20/20. Progress Note SUBJECTIVE: Complains of erythematous areas along the left upper extremity axilla and the tip of left breast without fever or chills OBJECTIVE PHYSICAL EXAMINATION: VITAL SIGNS: Please see below. GENERAL: No respiratory distress. Obese, appears older than her stated age HEENT: No JVD, thyromegaly, cervical lymphadenopathy, no axillary lymphadenopathy CARDIOVASCULAR: S1, S2, regular rate and rhythm RESPIRATORY: Clear to auscultation. Wheezing, rales or rhonchi ABDOMINAL: Obese, soft, nontender, nondistended EXTREMITIES: Chronic venous stasis changes and scarring bilateral lower extremities with chronic lymphedema SKIN: Patches of erythematous lesions without induration, warmth to touch noted on the left upper extremity including the forearm, axilla, and along the lateral chest wall as well as the tip of the breast Without blisters, bullae, or vesicles LABORATORY DATA, IMAGING STUDIES, MICROBIOLOGY: Please see below. ASSESSMENT AND PLAN: This is a -year-old [RACE] [GENDER] with . PROBLEMS: Left arm/Breast cellulitis Alpha-1 antitrypsin deficiency LISA Pancytopenia Neuropathy History of recurrent GI bleed attributed to rectal fissures, prepyloric erosion, hiatial hernia, antral gastritis, antral ulcers, distal esophagitis, AVMs, and gastric antral vascular ectasia (GAVE) GERD Irritable bowel syndrome Optic migraines Dyslipidemia Chronic Depression History of vitamin B12 deficiency History of seizures started in 1975, resolved in 1982 History of DVT 2, status post IVC filter placement in 1999 Remote history of CVA with transient left-sided weakness Morbid obesity Plan continue with present management with IV vancomycin and supportive care for pain resumed on all home medications. VS, I&O, 24H, [facility] Vital Signs/I&O Vital Signs Date Time Temp Pulse Resp B/P (MAP) Pulse Ox O2 Delivery O2 Flow Rate FiO2 09/20/20 08:48 61 114/51 09/20/20 06:03 16 09/20/20 06:00 97.1 97 Room Air I&O- Last 24 Hours up to 6 AM 09/20/20 06:00 Intake Total 1205 ml Output Total 300 ml Balance 905 ml Laboratory Data 24H LABS Laboratory Tests 2 09/19/20 16:36: Anion Gap 3L, Glomerular Filtration Rate > 60.0, Lactic Acid Level 1.5, Calcium Level 8.7L, Total Bilirubin 1.1H, Direct Bilirubin 0.3H, Aspartate Amino Transf (AST/SGOT) 34, Alanine Aminotransferase (ALT/SGPT) 20, Alkaline Phosphatase 126H , C-Reactive Protein, Quantitative 0.33H, Total Protein 6.0L, Albumin 3.2, Albumin/Globulin Ratio 1.1L 09/19/20 19:13: Immature Granulocyte % (Auto) 0.4, Neutrophils (%) (Auto) 64.3, Lymphocytes (%) (Auto) 19.8L, Monocytes (%) (Auto) 4.7, Eosinophils (%) (Auto) 9.7H, Basophils (%) (Auto) 1.1H, Neutrophils # (Auto) 1.8, Lymphocytes # (Auto) 0.6L, Monocytes # (Auto) 0.1, Eosinophils # (Auto) 0.3, Basophils # (Auto) 0.0, Nucleated Red Blood Cells % (auto) 0.0, Immature Platelet Fraction 3.7, Erythrocyte Sedimentation Rate 9, Urine Color YELLOW, Urine Appearance CLEAR, Urine pH 5.0, Urine Specific [place] 1.023, Urine Protein NEGATIVE, Urine Glucose (UA) NEGATIVE, Urine Ketones NEGATIVE, Urine Blood NEGATIVE, Urine Nitrite NEGATIVE, Urine Bilirubin NEGATIVE, Urine Urobilinogen 0.2, Urine Leukocyte Esterase NEGATIVE, Urine WBC (Auto) 0, Urine RBC (Auto) 0, Urine Hyaline Casts (Auto) 0, Urine Bacteria (Auto) NEGATIVE, Urine Squamous Epithelial Cells 5, Urine Mucus (Auto) SMALL, Urine Sperm (Auto) 09/19/20 22:41: Coronavirus (COVID-19)(PCR) NEGATIVE 09/20/20 10:12: Anion Gap 8, Glomerular Filtration Rate > 60.0, Calcium Level 8.1L, Nucleated Red Blood Cells % (auto) 0.0 CBC/BMP Laboratory Tests 09/19/20 16:36 09/19/20 19:13 09/20/20 10:12 Microbiology Microbiology 09/19/20 Blood Culture, Received Pending DURAN SCHWAB MD Sep 20, 2020 12:49
[2020-09-20] MEDS ORDERED: traMADol 50 MG TAB PO ONE (13:00)
[2020-09-20 14:00] VITALS: BP 100/47
[2020-09-20] MEDS: traZODone 50 MG TAB PO SCH (20:32)
[2020-09-20] MEDS: ACETAMINOPHEN TAB 650MG DOSE (2X325MG) PO PRN (20:34)
[2020-09-20] MEDS: POTASSIUM CHLORIDE 10 MEQ SR TABLET PO SCH (20:34)
[2020-09-20 22:00] VITALS: BP 114/55
[2020-09-21] MEDS: VANCOMYCIN HCL 1,000 MG, VIAL MATE ADAPTER 1 EACH in D5W 250 ML IV SCH ×2 (00:27→08:05)
[2020-09-21] MEDS: LEVOTHYROXINE 88MCG TABLET (0.088 MG) PO SCH (05:33)
[2020-09-21 06:00] VITALS: BP 148/71
[2020-09-21 06:34] LABS: BASO % 0.9 % (0.0-1.0); EOS # 0.3 10^3/uL (0.0-0.5); HEMATOCRIT 36.4 % (36.0-47.0); HEMOGLOBIN 10.3 g/dl (12.0-15.5); LYMPH # 0.5 10^3/uL (1.5-5.0); LYMPH % 21.4 % (24.0-44.0); MEAN CORPUSCULAR HEMOGLOBIN 29.3 pg (27.0-33.0); MEAN CORPUSCULAR HGB CONC 28.3 g/dl (32.0-36.5); MEAN CORPUSCULAR VOLUME 103.4 fl (80.0-96.0); MONO # 0.2 10^3/uL (0.0-0.8); NEUTROPHILS # 1.3 10^3/uL (1.5-8.5); NEUTROPHILS % 56.3 % (36.0-66.0); RED BLOOD COUNT 3.52 10^6/uL (4.00-5.40); WHITE BLOOD COUNT 2.3 10^3/uL (4.0-10.0)
[2020-09-21 06:57] LABS: BLOOD UREA NITROGEN 11 MG/DL (7-18); CALCIUM LEVEL 8.5 MG/DL (8.8-10.2); CARBON DIOXIDE LEVEL 29 MEQ/L (21-32); CHLORIDE LEVEL 108 MEQ/L (98-107); GLOMERULAR FILTRATION RATE > 60.0 (>45); GLUCOSE, FASTING 98 MG/DL (70-100); POTASSIUM SERUM 3.8 MEQ/L (3.5-5.1); SODIUM LEVEL 139 MEQ/L (136-145)
[2020-09-21 07:15] LABS: PLATELET COUNT, AUTOMATED 38 10^3/uL (150-450)
[2020-09-21] MEDS: APIXABAN 2.5 MG TAB (ELIQUIS) PO SCH ×2 (08:05→20:49)
[2020-09-21] MEDS: TORSEMIDE 20 MG TAB PO SCH ×2 (08:05→16:36)
[2020-09-21] MEDS: VENLAFAXINE **XR** 75MG CAPSULE PO SCH ×2 (08:05→20:49)
[2020-09-21] MEDS: PANTOPRAZOLE 40MG TAB (PROTONIX) PO SCH ×2 (08:05→20:49)
[2020-09-21] MEDS: GABAPENTIN 400 MG CAP PO SCH ×3 (08:05→20:49)
[2020-09-21] MEDS: CYANOCOBALAMIN 500 MCG TAB PO SCH (08:05)
[2020-09-21] MEDS: bisoproloL fumarate 5 MG TAB PO SCH ×2 (08:06→22:30)
[2020-09-21] MEDS: ACETAMINOPHEN TAB 650MG DOSE (2X325MG) PO PRN (08:07)
[2020-09-21] MEDS: DOCUSATE SODIUM 100MG CAPSULE PO SCH ×2 (08:53→20:48)
[2020-09-21] MEDS: CYCLOBENZAPRINE 10MG TABLET PO PRN (11:42)
[2020-09-21 14:00] VITALS: BP 122/60
--- NOTE | 2020-09-21 14:18 | IPNPDOC ---
Date Seen The patient was seen on 09/21/20. Progress Note SUBJECTIVE: still c/o pain in left upper arm and induration with decreasing erythema in the left arm, breast, upper abdomen. no fever or chills.no pruritus. OBJECTIVE PHYSICAL EXAMINATION: VITAL SIGNS: Please see below. GENERAL: aaox3 no use of respiratory acc mm obese No respiratory distress. Obese, appears older than her stated age HEENT: No JVD, thyromegaly, cervical lymphadenopathy, no carotid bruits no axillary lymphadenopathy CARDIOVASCULAR: S1, S2, regular rate and rhythm RESPIRATORY: Clear to auscultation. Wheezing, rales or rhonchi ABDOMINAL: Obese, soft, nontender, nondistended EXTREMITIES: Chronic venous stasis changes and scarring bilateral lower extremities with chronic lymphedema SKIN: Patches of erythematous lesions without induration, warmth to touch noted on the left upper extremity including the forearm, axilla, and along the lateral chest wall as well as the tip of the breast Without blisters, bullae, or vesicles. no crepitus LABORATORY DATA, IMAGING STUDIES, MICROBIOLOGY: Please see below. ASSESSMENT AND PLAN: Left arm/Breast cellulitis Alpha-1 antitrypsin deficiency LISA chronic Pancytopenia Neuropathy History of recurrent GI bleed attributed to rectal fissures, prepyloric erosion, hiatial hernia, antral gastritis, antral ulcers, distal esophagitis, AVMs, and gastric antral vascular ectasia (GAVE) GERD Irritable bowel syndrome Optic migraines Dyslipidemia Chronic Depression History of vitamin B12 deficiency History of seizures started in 1975, resolved in 1982 History of DVT 2, status post IVC filter placement in 1999 Remote history of CVA with transient left-sided weakness Morbid obesity Plan: need to monitor pancytopenia while on iv vancomycin. lesions on the arm and breast are improving and decreasing leukocytosis despite persist erythema. supportive care. PRN pain meds,but at high risk of acute respiratory acidosis if given opioids due to severe obesity. Minimize and avoid, if possible, opiates. VS, I&O, 24H, Fishbone Vital Signs/I&O Vital Signs Date Time Temp Pulse Resp B/P (MAP) Pulse Ox O2 Delivery O2 Flow Rate FiO2 09/21/20 08:06 65 119/50 09/21/20 06:00 97.8 19 96 09/20/20 14:55 High Flow Cannula 2.0 I&O- Last 24 Hours up to 6 AM 09/21/20 06:00 Intake Total 1120 ml Output Total 300 ml Balance 820 ml Laboratory Data 24H LABS Laboratory Tests 2 09/20/20 23:22: Vancomycin Level Trough 13.1 09/21/20 06:23: Immature Granulocyte % (Auto) 0.4, Neutrophils (%) (Auto) 56.3, Lymphocytes (%) (Auto) 21.4L, Monocytes (%) (Auto) 7.0H, Eosinophils (%) (Auto) 14.0H, Basophils (%) (Auto) 0.9, Neutrophils # (Auto) 1.3L, Lymphocytes # (Auto) 0.5L, Monocytes # (Auto) 0.2, Eosinophils # (Auto) 0.3, Basophils # (Auto) 0.0, Nucleated Red Blood Cells % (auto) 0.0, Immature Platelet Fraction 4.0, Anion Gap 2L, Glomerular Filtration Rate > 60.0, Calcium Level 8.5L CBC/BMP Laboratory Tests 09/21/20 06:23 Microbiology Microbiology 09/19/20 Blood Culture - Preliminary, Resulted No growth after 24 hours . All specim... DURAN SCHWAB MD Sep 21, 2020 14:18
[2020-09-21] MEDS ORDERED: traMADol 50 MG TAB PO PRN (14:30)
[2020-09-21] MEDS ORDERED: VANCOMYCIN HCL 1,000 MG, VIAL MATE ADAPTER 1 EACH in D5W 250 ML IV SCH (20:00)
[2020-09-21] MEDS: POTASSIUM CHLORIDE 10 MEQ SR TABLET PO SCH (20:49)
[2020-09-21 22:00] VITALS: BP 102/54
[2020-09-21] MEDS: traZODone 50 MG TAB PO SCH (23:07)
[2020-09-22] MEDS: ACETAMINOPHEN TAB 650MG DOSE (2X325MG) PO PRN (00:12)
[2020-09-22] MEDS: LEVOTHYROXINE 88MCG TABLET (0.088 MG) PO SCH (05:38)
[2020-09-22 06:00] VITALS: BP 103/53
[2020-09-22 07:35] LABS: BLOOD UREA NITROGEN 13 MG/DL (7-18); CALCIUM LEVEL 7.7 MG/DL (8.8-10.2); CARBON DIOXIDE LEVEL 25 MEQ/L (21-32); CHLORIDE LEVEL 108 MEQ/L (98-107); GLOMERULAR FILTRATION RATE > 60.0 (>45); GLUCOSE, FASTING 97 MG/DL (70-100); POTASSIUM SERUM 4.4 MEQ/L (3.5-5.1); SODIUM LEVEL 141 MEQ/L (136-145)
[2020-09-22] MEDS ORDERED: BACTRIM 160MG/800MG DS TAB PO SCH (09:00)
[2020-09-22] MEDS: bisoproloL fumarate 5 MG TAB PO SCH ×2 (09:00→20:52)
[2020-09-22] MEDS ORDERED: LINEZOLID 600MG TABLET (ZYVOX) PO SCH (09:00)
[2020-09-22] MEDS: PANTOPRAZOLE 40MG TAB (PROTONIX) PO SCH ×2 (10:13→20:50)
[2020-09-22] MEDS: CYANOCOBALAMIN 500 MCG TAB PO SCH (10:14)
[2020-09-22] MEDS: GABAPENTIN 400 MG CAP PO SCH ×3 (10:14→20:50)
[2020-09-22] MEDS: APIXABAN 2.5 MG TAB (ELIQUIS) PO SCH ×2 (10:14→20:50)
[2020-09-22] MEDS: TORSEMIDE 20 MG TAB PO SCH ×2 (10:15→17:36)
[2020-09-22] MEDS: VENLAFAXINE **XR** 75MG CAPSULE PO SCH ×2 (10:15→20:50)
[2020-09-22] MEDS: DOCUSATE SODIUM 100MG CAPSULE PO SCH ×2 (10:15→20:50)
--- NOTE | 2020-09-22 10:38 | IPNPDOC ---
Date Seen The patient was seen on 09/22/20. Progress Note SUBJECTIVE: peripheral IV infiltrated. no iv access today. c/o pain in dorsal left upper forearm with worsening erythema and induration, redness in left sided abdomen. 10scale OBJECTIVE PHYSICAL EXAMINATION: VITAL SIGNS: Please see below. GENERAL: aaox3 no use of respiratory acc mm obese No respiratory distress. appears older than her stated age SKIN: multiple ecchymotic areas on b/l arms/legs HEENT: No JVD, thyromegaly, cervical lymphadenopathy, no carotid bruits no axillary lymphadenopathy CARDIOVASCULAR: S1, S2, regular rate and rhythm RESPIRATORY: Clear to auscultation. Wheezing, rales or rhonchi ABDOMINAL: Obese, soft, nontender, nondistended EXTREMITIES: Chronic venous stasis changes and scarring bilateral lower extremities with chronic lymphedema SKIN: Patches of erythematous lesions without induration, warmth to touch noted on the left upper extremity including the forearm, axilla, and along the lateral chest wall as well as the tip of the breast Without blisters, bullae, or vesicles. no crepitus LABORATORY DATA, IMAGING STUDIES, MICROBIOLOGY: Please see below. ASSESSMENT AND PLAN: Left arm/Breast cellulitis -improved on IV vanco, but lost iv access -has chronic pancytopenia which is worsened -no obvious new bleeding to need rbc or plt transfusion -still with worsening left forearm erythema and painful induration, but no crepitus to suggest fasciitis -no hyperesthesia Peripheral IV access lost -midline for iv vanco -po bactrim for now until iv access regained -unable to use zyvox bc of increased risk of serotonin syndrome w her home meds Alpha-1 antitrypsin deficiency LISA chronic Pancytopenia Neuropathy History of recurrent GI bleed attributed to rectal fissures, prepyloric erosion, hiatial hernia, antral gastritis, antral ulcers, distal esophagitis, AVMs, and gastric antral vascular ectasia (GAVE) GERD Irritable bowel syndrome Optic migraines Dyslipidemia Chronic Depression History of vitamin B12 deficiency History of seizures started in 1975, resolved in 1982 History of DVT 2, status post IVC filter placement in 1999 Remote history of CVA with transient left-sided weakness Morbid obesity VS, I&O, 24H, Fishbone Vital Signs/I&O Vital Signs Date Time Temp Pulse Resp B/P (MAP) Pulse Ox O2 Delivery O2 Flow Rate FiO2 09/22/20 06:00 98.4 65 18 103/53 (70) 93 Nasal Cannula 2.0 I&O- Last 24 Hours up to 6 AM 09/22/20 06:00 Intake Total 1290 ml Output Total 750 ml Balance 540 ml Laboratory Data 24H LABS Laboratory Tests 2 09/21/20 15:51: Vancomycin Level Trough 21.7H 09/22/20 06:49: Anion Gap 8, Glomerular Filtration Rate > 60.0, Calcium Level 7.7L 09/22/20 08:38: CBC/BMP Laboratory Tests 09/22/20 06:49 Microbiology Microbiology 09/19/20 Blood Culture - Preliminary, Resulted No Growth after 48 hours. All Specime... DURAN SCHWAB MD Sep 22, 2020 10:37
[2020-09-22 10:59] LABS: BASO % 1.3 % (0.0-1.0); EOS # 0.2 10^3/uL (0.0-0.5); EOS % 9.1 % (0.0-3.0); HEMATOCRIT 38.8 % (36.0-47.0); LYMPH # 0.7 10^3/uL (1.5-5.0); LYMPH % 28.6 % (24.0-44.0); MEAN CORPUSCULAR HEMOGLOBIN 29.8 pg (27.0-33.0); MEAN CORPUSCULAR HGB CONC 28.4 g/dl (32.0-36.5); MEAN CORPUSCULAR VOLUME 105.1 fl (80.0-96.0); MONO # 0.2 10^3/uL (0.0-0.8); MONO % 7.4 % (0.0-5.0); NEUTROPHILS # 1.2 10^3/uL (1.5-8.5); NEUTROPHILS % 53.2 % (36.0-66.0); RED BLOOD COUNT 3.69 10^6/uL (4.00-5.40); WHITE BLOOD COUNT 2.3 10^3/uL (4.0-10.0)
[2020-09-22 11:27] LABS: PLATELET COUNT, AUTOMATED 16 10^3/uL (150-450)
[2020-09-22 12:03] LABS: BASO % 0.5 % (0.0-1.0); EOS # 0.2 10^3/uL (0.0-0.5); EOS % 10.7 % (0.0-3.0); HEMATOCRIT 33.3 % (36.0-47.0); HEMOGLOBIN 9.8 g/dl (12.0-15.5); LYMPH # 0.5 10^3/uL (1.5-5.0); LYMPH % 24.7 % (24.0-44.0); MEAN CORPUSCULAR HEMOGLOBIN 30.2 pg (27.0-33.0); MEAN CORPUSCULAR HGB CONC 29.4 g/dl (32.0-36.5); MEAN CORPUSCULAR VOLUME 102.5 fl (80.0-96.0); MONO # 0.2 10^3/uL (0.0-0.8); MONO % 9.3 % (0.0-5.0); NEUTROPHILS # 1.2 10^3/uL (1.5-8.5); NEUTROPHILS % 54.3 % (36.0-66.0); RED BLOOD COUNT 3.25 10^6/uL (4.00-5.40); WHITE BLOOD COUNT 2.2 10^3/uL (4.0-10.0)
[2020-09-22 12:05] LABS: PLATELET COUNT, AUTOMATED 45 10^3/uL (150-450)
[2020-09-22] MEDS ORDERED: LIDOCAINE 1% MDV 20ML VIAL As Ordered ONE (13:43)
[2020-09-22 14:00] VITALS: BP 109/57
[2020-09-22] MEDS ORDERED: VANCOMYCIN HCL 1,000 MG, VIAL MATE ADAPTER 1 EACH in D5W 250 ML IV SCH (15:00)
[2020-09-22] MEDS: SODIUM CHLORIDE 0.9% INJ 10 ML SYR IV SCH (17:36)
[2020-09-22] MEDS: POTASSIUM CHLORIDE 10 MEQ SR TABLET PO SCH (20:50)
[2020-09-22] MEDS: traZODone 50 MG TAB PO SCH (20:50)
[2020-09-22 22:00] VITALS: BP_SYST 113; BP_DIAS 47; BP_DIAS 7
[2020-09-23 06:00] VITALS: BP 107/46
[2020-09-23 06:09] LABS: BASO % 0.9 % (0.0-1.0); EOS # 0.2 10^3/uL (0.0-0.5); EOS % 8.4 % (0.0-3.0); HEMATOCRIT 37.2 % (36.0-47.0); HEMOGLOBIN 10.7 g/dl (12.0-15.5); LYMPH # 0.7 10^3/uL (1.5-5.0); MEAN CORPUSCULAR HEMOGLOBIN 30.4 pg (27.0-33.0); MEAN CORPUSCULAR HGB CONC 28.8 g/dl (32.0-36.5); MEAN CORPUSCULAR VOLUME 105.7 fl (80.0-96.0); MONO # 0.2 10^3/uL (0.0-0.8); MONO % 10.1 % (0.0-5.0); NEUTROPHILS # 1.2 10^3/uL (1.5-8.5); NEUTROPHILS % 50.6 % (36.0-66.0); RED BLOOD COUNT 3.52 10^6/uL (4.00-5.40); WHITE BLOOD COUNT 2.3 10^3/uL (4.0-10.0)
[2020-09-23 06:14] LABS: PLATELET COUNT, AUTOMATED 49 10^3/uL (150-450)
[2020-09-23 06:39] LABS: BLOOD UREA NITROGEN 16 MG/DL (7-18); CALCIUM LEVEL 8.4 MG/DL (8.8-10.2); CARBON DIOXIDE LEVEL 32 MEQ/L (21-32); CHLORIDE LEVEL 106 MEQ/L (98-107); CREATININE FOR GFR 0.75 MG/DL (0.55-1.30); GLOMERULAR FILTRATION RATE > 60.0 (>45); GLUCOSE, FASTING 98 MG/DL (70-100); SODIUM LEVEL 142 MEQ/L (136-145); VANCOMYCIN RANDOM 11.4 UG/ML
[2020-09-23] MEDS: LEVOTHYROXINE 88MCG TABLET (0.088 MG) PO SCH (06:45)
[2020-09-23] MEDS: SODIUM CHLORIDE 0.9% INJ 10 ML SYR IV SCH ×2 (06:45→17:56)
[2020-09-23] MEDS ORDERED: VANCOMYCIN HCL 1,000 MG, VIAL MATE ADAPTER 1 EACH in D5W 250 ML IV SCH (09:00)
[2020-09-23] MEDS: bisoproloL fumarate 5 MG TAB PO SCH ×2 (09:00→20:22)
[2020-09-23] MEDS: DOCUSATE SODIUM 100MG CAPSULE PO SCH ×2 (09:19→20:21)
[2020-09-23] MEDS: VENLAFAXINE **XR** 75MG CAPSULE PO SCH ×2 (09:19→20:21)
[2020-09-23] MEDS: CYANOCOBALAMIN 500 MCG TAB PO SCH (09:20)
[2020-09-23] MEDS: GABAPENTIN 400 MG CAP PO SCH ×3 (09:20→20:20)
[2020-09-23] MEDS: APIXABAN 2.5 MG TAB (ELIQUIS) PO SCH ×2 (09:20→20:20)
[2020-09-23] MEDS: PANTOPRAZOLE 40MG TAB (PROTONIX) PO SCH ×2 (09:20→20:20)
[2020-09-23] MEDS: TORSEMIDE 20 MG TAB PO SCH ×2 (09:20→17:55)
--- NOTE | 2020-09-23 10:00 | REP ---
INDICATION: iv abx lost iv site. COMPARISON: None. TECHNIQUE: The procedure was performed under the direct supervision of Dr. Coleman. The risks and benefits of the procedure were explained to the patient and informed consent was obtained. The right basilic vein was localized using ultrasound guidance. The skin was prepped and draped in a sterile fashion. 1% lidocaine was used as a local anesthetic. Using ultrasound guidance the basilic vein was cannulated and a 0.018 guidewire was inserted. The needle was removed and a 4.5 Cypriot dilator and peel-away sheath was inserted over the guidewire. A 4.5 Cypriot single lumen catheter was left and a length of 16.5 cm. The dilator was removed and the catheter was inserted over the guidewire. The peel-away sheath was removed and the catheter was flushed with heparinized saline as per hospital protocol. The catheter was affixed to the skin and a sterile dressing was applied. The patient tolerated the procedure well and there were no immediate complications. FINDINGS: None IMPRESSION: Midline catheter insertion right basilic vein. <Electronically signed by Gonzalez Mahajan > 09/23/20 0958 <Electronically signed by Alejandro Coleman > 09/23/20 0971
[2020-09-23] MEDS: SODIUM CHLORIDE 0.9% INJ 10 ML SYR IV PRN (11:48)
[2020-09-23 14:00] VITALS: BP 106/2
[2020-09-23] MEDS: traZODone 50 MG TAB PO SCH (20:22)
[2020-09-23] MEDS: POTASSIUM CHLORIDE 10 MEQ SR TABLET PO SCH (20:22)
--- NOTE | 2020-09-23 21:21 | IPNPDOC ---
Subjective Date Seen The patient was seen on 09/23/20. Subjective Chief Complaint/HPI Mrs. Saucedo is a 65 year old female with pancytopenia, alpha-1 antitrypsin deficiency, and morbid obesity who is here with cellulitis of the left breast, left arm, and left leg. Cellulitis of the left arm and left leg appears to be improved. I had a nurse warp spooler. Cellulitis of the left breast appears similar to yesterday per nurse. Otherwise patient denies any fever. She does have chronic shortness of breath of which she feels is worse today. Otherwise today a new midline was placed and she was restarted on vancomycin Objective Physical Examination General Exam: Positive: Alert, Cooperative Eye Exam: Positive: EOMI; Negative: Sclera icteric ENT Exam: Positive: Atraumatic Chest Exam: Positive: Clear to auscultation; Negative: Rales, Rhonchi, Wheezing Heart Exam: Positive: Rate Normal, Regular Rhythm Abdomen Exam: Positive: Normal bowel sounds, Soft; Negative: Tenderness Extremity Exam: Positive: Edema (bilateral pitting) Skin Exam: Positive: Rash (nurse warp spooler, left breast, left arm, and left leg cellulitis) Neuro Exam: Positive: Normal Speech Psych Exam: Positive: Mental status NL, Mood NL Assessment /Plan Assessment Mrs. Saucedo is a 65 year old female with pancytopenia, alpha-1 antitrypsin deficiency, and morbid obesity who is here with cellulitis of the left breast, left arm, and left leg. Lost midline yesterday, new midline placed today. Restarted on vancomycin. Otherwise unable to do linezolid increased risk for serotonin syndrome with her current medication list. Plan/VTE VTE Prophylaxis Ordered?: Yes Plan 1. Cellulitis of the left breast, left arm, and left leg There is improvement in the left arm and left leg. Cellulitis the left breast does not appear improved Restarted vancomycin today 2. Pancytopenia Follows with hematology/oncology Follow CBC 3. Hypothyroidism Continue levothyroxine 4. Neuropathy Continue gabapentin Continue tramadol line 5. Anxiety/depression Continue venlafaxine 6. DVT prophylaxis Continue apixaban Disposition: Pending improvement in cellulitis. Physical therapy to work with patient on stairs VS, I&O, 24H, Fishbone Vital Signs/I&O Vital Signs Date Time Temp Pulse Resp B/P (MAP) Pulse Ox O2 Delivery O2 Flow Rate FiO2 09/23/20 20:22 82 114/72 09/23/20 14:00 97.6 19 96 Nasal Cannula 2.0 I&O- Last 24 Hours up to 6 AM 09/23/20 06:00 Intake Total 1370 ml Output Total 1430 ml Balance -60 ml Laboratory Data 24H LABS Laboratory Tests 2 09/23/20 05:48: Immature Granulocyte % (Auto) 0.0, Neutrophils (%) (Auto) 50.6, Lymphocytes (%) (Auto) 30.0, Monocytes (%) (Auto) 10.1H, Eosinophils (%) (Auto) 8.4H, Basophils (%) (Auto) 0.9, Neutrophils # (Auto) 1.2L, Lymphocytes # (Auto) 0.7L, Monocytes # (Auto) 0.2, Eosinophils # (Auto) 0.2, Basophils # (Auto) 0.0, Nucleated Red Blood Cells % (auto) 0.0, Anion Gap 4L, Glomerular Filtration Rate > 60.0, Calc ium Level 8.4L, Random Vancomycin Level 11.4 09/23/20 09:15: Bedside Glucose (Misc Panel) 87 CBC/BMP Laboratory Tests 09/23/20 05:48 Microbiology Microbiology 09/19/20 Blood Culture - Preliminary, Resulted No Growth after 72 hours. All specime... SAVANNAH HALLMAN DO Sep 23, 2020 21:21
[2020-09-23 22:00] VITALS: BP 114/72
[2020-09-24 06:00] VITALS: BP 112/53
[2020-09-24] MEDS: LEVOTHYROXINE 88MCG TABLET (0.088 MG) PO SCH (06:57)
[2020-09-24] MEDS: SODIUM CHLORIDE 0.9% INJ 10 ML SYR IV SCH ×2 (06:58→18:58)
[2020-09-24 08:23] LABS: BASO % 0.6 % (0.0-1.0); EOS # 0.1 10^3/uL (0.0-0.5); EOS % 7.6 % (0.0-3.0); HEMATOCRIT 30.7 % (36.0-47.0); HEMOGLOBIN 9.1 g/dl (12.0-15.5); LYMPH # 0.5 10^3/uL (1.5-5.0); LYMPH % 30.2 % (24.0-44.0); MEAN CORPUSCULAR HEMOGLOBIN 30.5 pg (27.0-33.0); MEAN CORPUSCULAR HGB CONC 29.6 g/dl (32.0-36.5); MONO # 0.1 10^3/uL (0.0-0.8); MONO % 8.1 % (0.0-5.0); NEUTROPHILS % 52.9 % (36.0-66.0); RED BLOOD COUNT 2.98 10^6/uL (4.00-5.40); WHITE BLOOD COUNT 1.7 10^3/uL (4.0-10.0)
[2020-09-24 08:24] LABS: NEUTROPHILS # 0.9 10^3/uL (1.5-8.5); PLATELET COUNT, AUTOMATED 52 10^3/uL (150-450)
[2020-09-24 08:58] LABS: BLOOD UREA NITROGEN 17 MG/DL (7-18); CALCIUM LEVEL 8.2 MG/DL (8.8-10.2); CARBON DIOXIDE LEVEL 32 MEQ/L (21-32); CHLORIDE LEVEL 107 MEQ/L (98-107); CREATININE FOR GFR 0.76 MG/DL (0.55-1.30); GLOMERULAR FILTRATION RATE > 60.0 (>45); GLUCOSE, FASTING 117 MG/DL (70-100); POTASSIUM SERUM 3.8 MEQ/L (3.5-5.1); SODIUM LEVEL 143 MEQ/L (136-145); VANCOMYCIN LEVEL TROUGH 8.5 UG/ML (10.0-20.0)
[2020-09-24] MEDS: bisoproloL fumarate 5 MG TAB PO SCH ×2 (09:00→22:48)
[2020-09-24] MEDS: PANTOPRAZOLE 40MG TAB (PROTONIX) PO SCH ×2 (09:26→22:48)
[2020-09-24] MEDS: ACETAMINOPHEN TAB 650MG DOSE (2X325MG) PO PRN (09:26)
[2020-09-24] MEDS: VANCOMYCIN HCL 750 MG, VIAL MATE ADAPTER 1 EACH in D5W 250 ML IV SCH ×2 (09:26→10:40)
[2020-09-24] MEDS: TORSEMIDE 20 MG TAB PO SCH ×2 (09:28→16:56)
[2020-09-24] MEDS: VENLAFAXINE **XR** 75MG CAPSULE PO SCH ×2 (09:28→22:47)
[2020-09-24] MEDS: CYANOCOBALAMIN 500 MCG TAB PO SCH (09:28)
[2020-09-24] MEDS: DOCUSATE SODIUM 100MG CAPSULE PO SCH ×3 (09:28→22:54)
[2020-09-24] MEDS: APIXABAN 2.5 MG TAB (ELIQUIS) PO SCH ×2 (09:28→22:47)
[2020-09-24] MEDS: GABAPENTIN 400 MG CAP PO SCH ×3 (09:29→22:47)
[2020-09-24] MEDS: SODIUM CHLORIDE 0.9% INJ 10 ML SYR IV PRN (12:06)
[2020-09-24] MEDS: CYCLOBENZAPRINE 10MG TABLET PO PRN (12:07)
[2020-09-24 14:00] VITALS: BP 91/37
--- NOTE | 2020-09-24 18:27 | IPNPDOC ---
Subjective Date Seen The patient was seen on 09/24/20. Subjective Chief Complaint/HPI Mrs. Saucedo is a 65 year old female with pancytopenia, alpha-1 antitrypsin deficiency, and morbid obesity who is here with cellulitis of the left breast, left arm, and left leg. The left arm is batch still operator, but the erythema is lightening up. I had a nurse open tenter operator me as we looking at the cellulitis on the breast. The erythema on the breast has also lightened up. She did well with physical therapy. I believe she would need one more day of IV antibiotics before transitioning to PO antibiotics. We discussed possible discharge tomorrow. Objective Physical Examination General Exam: Positive: Alert, Cooperative Eye Exam: Positive: EOMI; Negative: Sclera icteric ENT Exam: Positive: Atraumatic Chest Exam: Positive: Clear to auscultation; Negative: Rales, Rhonchi, Wheezing Heart Exam: Positive: Rate Normal, Regular Rhythm Abdomen Exam: Positive: Normal bowel sounds, Soft; Negative: Tenderness Extremity Exam: Positive: Edema (bilateral pitting) Skin Exam: Positive: Rash (nurse open tenter operator, left breast, left arm, and left leg cellulitis) Neuro Exam: Positive: Normal Speech Psych Exam: Positive: Mental status NL, Mood NL Assessment /Plan Assessment Mrs. Saucedo is a 65 year old female with pancytopenia, alpha-1 antitrypsin deficiency, and morbid obesity who is here with cellulitis of the left breast, left arm, and left leg. Unable to do linezolid increased risk for serotonin syndrome with her current medication list. It appears she would need one more day of IV antibiotics before transitioning to PO antibiotics. Anticipating discharge tomorrow with doxycycline Plan/VTE VTE Prophylaxis Ordered?: Yes Plan 1. Cellulitis of the left breast, left arm, and left leg There is improvement in the left arm and left leg. Cellulitis the left breast starting to lighten up Continue vancomycin, will discharge with doxycycline 2. Pancytopenia Follows with hematology/oncology Follow CBC 3. Hypothyroidism Continue levothyroxine 4. Neuropathy Continue gabapentin Continue tramadol line 5. Anxiety/depression Continue venlafaxine 6. DVT prophylaxis Continue apixaban Disposition: Anticipate discharge tomorrow on doxycycline. VS, I&O, 24H, Fishbone Vital Signs/I&O Vital Signs Date Time Temp Pulse Resp B/P (MAP) Pulse Ox O2 Delivery O2 Flow Rate FiO2 09/24/20 14:00 98.0 62 15 91/37 (55) 98 Nasal Cannula 2.0 I&O- Last 24 Hours up to 6 AM 09/24/20 06:00 Intake Total 1310 ml Output Total 600 ml Balance 710 ml Laboratory Data 24H LABS Laboratory Tests 2 09/24/20 08:11: Immature Granulocyte % (Auto) 0.6, Neutrophils (%) (Auto) 52.9, Lymphocytes (%) (Auto) 30.2, Monocytes (%) (Auto) 8.1H, Eosinophils (%) (Auto) 7.6H, Basophils (%) (Auto) 0.6, Neutrophils # (Auto) 0.9L, Lymphocytes # (Auto) 0.5L, Monocytes # (Auto) 0.1, Eosinophils # (Auto) 0.1, Basophils # (Auto) 0.0, Nucleated Red Blood Cells % (auto) 0.0, Immature Platelet Fraction 3.0, Anion Gap 4L, Glomerular Filtration Rate > 60.0, Calcium Level 8.2L, Vancomycin Level Trough 8.5L CBC/BMP Laboratory Tests 09/24/20 08:11 Microbiology Microbiology 09/19/20 Blood Culture - Preliminary, Resulted No Growth after 72 hours. All specime... SAVANNAH HALLMAN DO Sep 24, 2020 18:27
[2020-09-24 22:00] VITALS: BP 90/38
[2020-09-24] MEDS: traZODone 50 MG TAB PO SCH (22:47)
[2020-09-24] MEDS: POTASSIUM CHLORIDE 10 MEQ SR TABLET PO SCH (22:48)
[2020-09-25 02:00] VITALS: BP 98/40
[2020-09-25] MEDS: LEVOTHYROXINE 88MCG TABLET (0.088 MG) PO SCH (05:50)
[2020-09-25] MEDS: SODIUM CHLORIDE 0.9% INJ 10 ML SYR IV SCH ×2 (05:50→17:39)
[2020-09-25 06:00] VITALS: BP 119/76
[2020-09-25 08:21] LABS: BASO % 1.2 % (0.0-1.0); EOS # 0.1 10^3/uL (0.0-0.5); EOS % 6.7 % (0.0-3.0); HEMATOCRIT 31.9 % (36.0-47.0); HEMOGLOBIN 9.2 g/dl (12.0-15.5); LYMPH # 0.5 10^3/uL (1.5-5.0); LYMPH % 32.1 % (24.0-44.0); MEAN CORPUSCULAR HEMOGLOBIN 30.4 pg (27.0-33.0); MEAN CORPUSCULAR HGB CONC 28.8 g/dl (32.0-36.5); MEAN CORPUSCULAR VOLUME 105.3 fl (80.0-96.0); MONO # 0.2 10^3/uL (0.0-0.8); MONO % 9.1 % (0.0-5.0); NEUTROPHILS % 50.3 % (36.0-66.0); RED BLOOD COUNT 3.03 10^6/uL (4.00-5.40); WHITE BLOOD COUNT 1.7 10^3/uL (4.0-10.0)
[2020-09-25] MEDS: CYANOCOBALAMIN 500 MCG TAB PO SCH (08:42)
[2020-09-25] MEDS: APIXABAN 2.5 MG TAB (ELIQUIS) PO SCH ×2 (08:42→21:16)
[2020-09-25] MEDS: DOCUSATE SODIUM 100MG CAPSULE PO SCH ×3 (08:42→21:16)
[2020-09-25] MEDS: VANCOMYCIN HCL 750 MG, VIAL MATE ADAPTER 1 EACH in D5W 250 ML IV SCH ×2 (08:42→10:23)
[2020-09-25] MEDS: GABAPENTIN 400 MG CAP PO SCH ×3 (08:42→21:16)
[2020-09-25] MEDS: PANTOPRAZOLE 40MG TAB (PROTONIX) PO SCH ×2 (08:42→21:16)
[2020-09-25] MEDS: VENLAFAXINE **XR** 75MG CAPSULE PO SCH ×2 (08:43→21:16)
[2020-09-25] MEDS: TORSEMIDE 20 MG TAB PO SCH ×2 (08:52→17:39)
[2020-09-25] MEDS: bisoproloL fumarate 5 MG TAB PO SCH ×2 (08:53→21:19)
[2020-09-25 09:04] LABS: BLOOD UREA NITROGEN 19 MG/DL (7-18); CALCIUM LEVEL 8.6 MG/DL (8.8-10.2); CARBON DIOXIDE LEVEL 31 MEQ/L (21-32); CHLORIDE LEVEL 107 MEQ/L (98-107); CREATININE FOR GFR 0.69 MG/DL (0.55-1.30); GLOMERULAR FILTRATION RATE > 60.0 (>45); GLUCOSE, FASTING 83 MG/DL (70-100); POTASSIUM SERUM 4.1 MEQ/L (3.5-5.1); SODIUM LEVEL 141 MEQ/L (136-145); TROPONIN I < 0.02 NG/ML (< 0.10)
[2020-09-25 09:06] LABS: NEUTROPHILS # 0.8 10^3/uL (1.5-8.5); PLATELET COUNT, AUTOMATED 36 10^3/uL (150-450)
[2020-09-25 09:32] LABS: NT-PRO BNP 95 PG/ML (<125)
[2020-09-25] MEDS: CYCLOBENZAPRINE 10MG TABLET PO PRN (13:13)
[2020-09-25 14:00] VITALS: BP 105/57
--- NOTE | 2020-09-25 19:20 | ECGEPIP ---
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
--- NOTE | 2020-09-25 20:37 | IPNPDOC ---
Subjective Date Seen The patient was seen on 09/25/20. Subjective Chief Complaint/HPI Mrs. Saucedo is a 65 year old female with pancytopenia, alpha-1 antitrypsin deficiency, and morbid obesity who is here with cellulitis of the left breast, left arm, and left leg. Overnight, she has 7-8/10 chest pressure with associated dyspnea and nausea. It lasted for about 15 to 30 minutes. EKG did not demonstrated ischemic changes. 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 Saucedo is a 65 year old female with pancytopenia, alpha-1 antitrypsin deficiency, and morbid obesity who is here with cellulitis of the left breast, left arm, and left leg. Unable to do linezolid increased risk for serotonin syndrome with her current medication list. Due to chest pressure with associated dyspnea and nausea, concern for ACS. Will work up chest pain. If negative, patient may be able to go home tomorrow with doxycycline. Plan/VTE VTE Prophylaxis Ordered?: Yes Plan 1. Cellulitis of the left breast, left arm, and left leg There is improvement in the left arm and left leg. Cellulitis the left breast starting to lighten up Continue vancomycin, will discharge with doxycycline 2. Pancytopenia Follows with hematology/oncology Follow CBC 3. Hypothyroidism Continue levothyroxine 4. Neuropathy Continue gabapentin Continue tramadol line 5. Anxiety/depression Continue venlafaxine 6. Chest pain -Developed chest pressure with dyspnea and nausea -Rated 8/10 -Lasted for 15 to 30 minutes -Will order echocardiogram and troponin 6. DVT prophylaxis Continue apixaban Disposition: If work up is negative, anticipate discharge tomorrow on doxycycline. VS, I&O, 24H, Fishbone Vital Signs/I&O Vital Signs Date Time Temp Pulse Resp B/P (MAP) Pulse Ox O2 Delivery O2 Flow Rate FiO2 09/25/20 14:00 97.9 62 20 105/57 (73) 95 Nasal Cannula 2.0 I&O- Last 24 Hours up to 6 AM 09/25/20 05:59 Intake Total 1050 ml Output Total 0 ml Balance 1050 ml Laboratory Data 24H LABS Laboratory Tests 2 09/25/20 08:03: Immature Granulocyte % (Auto) 0.6, Neutrophils (%) (Auto) 50.3, Lymphocytes (%) (Auto) 32.1, Monocytes (%) (Auto) 9.1H, Eosinophils (%) (Auto) 6.7H, Basophils (%) (Auto) 1.2H, Neutrophils # (Auto) 0.8L, Lymphocytes # (Auto) 0.5L, Monocytes # (Auto) 0.2, Eosinophils # (Auto) 0.1, Basophils # (Auto) 0.0, Nucleated Red Blood Cells % (auto) 0.0, Anion Gap 3L, Glomerular Filtration Rate > 60.0, Calcium Level 8.6L, Troponin I < 0.02, GM-Cxc-H-Type Natriuretic Peptide 95, Vancomycin Level Trough 11.1 09/25/20 15:18: Troponin I < 0.02 09/25/20 19:41: Troponin I < 0.02 CBC/BMP Laboratory Tests 09/25/20 08:03 Microbiology Microbiology 09/19/20 Blood Culture - Final, Complete NO GROWTH AFTER 5 DAYS SAVANNAH HALLMAN DO Sep 25, 2020 20:37
[2020-09-25] MEDS: traZODone 50 MG TAB PO SCH (21:15)
[2020-09-25] MEDS: POTASSIUM CHLORIDE 10 MEQ SR TABLET PO SCH (21:16)
[2020-09-25 22:00] VITALS: BP 144/76
[2020-09-26] MEDS: LEVOTHYROXINE 88MCG TABLET (0.088 MG) PO SCH (05:50)
[2020-09-26] MEDS: SODIUM CHLORIDE 0.9% INJ 10 ML SYR IV SCH (05:56)
[2020-09-26 06:00] VITALS: BP 144/67
[2020-09-26 08:30] LABS: EOS # 0.1 10^3/uL (0.0-0.5); EOS % 6.3 % (0.0-3.0); HEMATOCRIT 32.3 % (36.0-47.0); HEMOGLOBIN 9.6 g/dl (12.0-15.5); LYMPH # 0.6 10^3/uL (1.5-5.0); LYMPH % 30.4 % (24.0-44.0); MEAN CORPUSCULAR HEMOGLOBIN 30.6 pg (27.0-33.0); MEAN CORPUSCULAR HGB CONC 29.7 g/dl (32.0-36.5); MEAN CORPUSCULAR VOLUME 102.9 fl (80.0-96.0); MONO # 0.2 10^3/uL (0.0-0.8); MONO % 8.9 % (0.0-5.0); NEUTROPHILS % 53.4 % (36.0-66.0); RED BLOOD COUNT 3.14 10^6/uL (4.00-5.40); WHITE BLOOD COUNT 1.9 10^3/uL (4.0-10.0)
[2020-09-26 08:41] LABS: PLATELET COUNT, AUTOMATED 37 10^3/uL (150-450)
[2020-09-26 08:58] LABS: BLOOD UREA NITROGEN 21 MG/DL (7-18); CALCIUM LEVEL 8.4 MG/DL (8.8-10.2); CARBON DIOXIDE LEVEL 32 MEQ/L (21-32); CHLORIDE LEVEL 106 MEQ/L (98-107); CREATININE FOR GFR 0.79 MG/DL (0.55-1.30); GLOMERULAR FILTRATION RATE > 60.0 (>45); GLUCOSE, FASTING 76 MG/DL (70-100); POTASSIUM SERUM 3.9 MEQ/L (3.5-5.1); SODIUM LEVEL 143 MEQ/L (136-145)
[2020-09-26] MEDS: DOCUSATE SODIUM 100MG CAPSULE PO SCH (09:00)
[2020-09-26 09:10] VITALS: BP 144/69
[2020-09-26] MEDS: GABAPENTIN 400 MG CAP PO SCH ×2 (09:10→12:18)
[2020-09-26] MEDS: CYANOCOBALAMIN 500 MCG TAB PO SCH (09:10)
[2020-09-26] MEDS: bisoproloL fumarate 5 MG TAB PO SCH (09:10)
[2020-09-26] MEDS: TORSEMIDE 20 MG TAB PO SCH (09:11)
[2020-09-26] MEDS: VENLAFAXINE **XR** 75MG CAPSULE PO SCH (09:11)
[2020-09-26] MEDS: PANTOPRAZOLE 40MG TAB (PROTONIX) PO SCH (09:11)
[2020-09-26] MEDS: APIXABAN 2.5 MG TAB (ELIQUIS) PO SCH (09:11)
[2020-09-26 09:16] LABS: VANCOMYCIN LEVEL TROUGH 11.6 UG/ML (10.0-20.0)
[2020-09-26] MEDS ORDERED: DOXY-350 PO (09:26)
[2020-09-26] MEDS: VANCOMYCIN HCL 750 MG, VIAL MATE ADAPTER 1 EACH in D5W 250 ML IV SCH (09:34)
[2020-09-26] MEDS ORDERED: VANCOMYCIN HCL 1,000 MG, VIAL MATE ADAPTER 1 EACH in D5W 250 ML IV SCH (10:00)
--- NOTE | 2020-09-26 12:49 | ECHO ---
DATE OF PROCEDURE: 09/25/2020 Age: 65 Gender: Female Height: 64 inches Weight: 377 pounds Body surface area: 2.75 m2 PATIENT LOCATION: Inpatient [address] [place] [address], Room 4221. REFERRING PHYSICIAN: Benito Key DO INDICATION: Chest pain. MEASUREMENTS: 2D Measurements: RV 3.7 cm LV 5.5 cm Septum 1.4 cm Posterior wall 1.4 cm Aortic Root 3.6 cm LA 4.3 cm LVEF 70% Doppler Measurements: AV 2.18 m/s LVOT 1.28 m/s LVOT diameter 2.0 cm MV-E 119, A 96, E/A ratio 1.2 Early mitral deceleration time 187 msec E prime medial 6.5, A prime medial 5, E prime lateral 10.4 Average E/E prime ratio 14.1/PCWP 19.4 mmHg PV 1.2 m/s Pulmonary artery acceleration time 128 msec RVSP 32 mmHg IVC 1.8 cm COMMENTS: Normal sinus rhythm without intraventricular conduction disturbance. Somewhat technically challenging study in light of the patients body habitus, but diagnostically useful information was still obtained. Moderate eccentric left ventricular hypertrophy with hyperkinetic wall motion. Mildly dilated left atrium with grade 2 LV diastolic dysfunction and currently only slightly elevated estimated mean left atrial pressure. Right heart chambers were upper limits of normal in size with normal wall motion and mild pulmonary hypertension. Normal IVC size and collapse against an elevated central venous pressure. Normal aortic dimensions. Mild aortic valvular sclerosis without stenosis (mean gradient across the aortic valve during systole was only 9 mmHg). The dimensionless index was 0.6 both features against ventricular outflow tract obstruction. No insufficiency. Normal appearing mitral valve apparatus and mitral valve function. Normal appearing tricuspid valve with very mild insufficiency. No apparent intracardiac mass or pericardial effusion. MTDD
[2020-09-26] MEDS ORDERED: VANCOMYCIN HCL 500 MG in D5W MINI-BAG PLUS 100 ML IV ONE (14:00)
--- NOTE | 2020-09-26 22:30 | DS.PDOC ---
Discharge Summary General Date of Admission Sep 19, 2020 at 22:12 Date of Discharge Sep 26, 2020 Attending Physician: SAVANNAH HALLMAN DO Discharge Summary PROCEDURES PERFORMED DURING STAY: None ADMITTING DIAGNOSES: 1. Cellulitis of the left breast, left arm, and left leg 2. Pancytopenia 3. Hypothyroidism 4. Neuropathy 5. Anxiety/depression DISCHARGE DIAGNOSES: 1. Cellulitis of the left breast, left arm, and left leg 2. Pancytopenia 3. Hypothyroidism 4. Neuropathy 5. Anxiety/depression COMPLICATIONS/CHIEF COMPLAINT: Cellulitis. HISTORY OF PRESENT ILLNESS: Ms. Saucedo is a 65 year old female with alpha-1 antitrypsin deficiency, LISA cirrhosis, CHF, GERD, and CVA who presented with a 2 week history of worsening left arm, left breast, and left thigh erythematous and painful rash. She did not respond to 5 days of Keflex and the rash continued to spread and become more painful. She denies any cuts. lacerations, or falls, but she does have bilateral chronic venous stasis ulcers on legs. HOSPITAL COURSE: During her hospitalization, she had a breast ultrasound incase the rash on the breast was malignant. Ultrasound was negative for malignancy. She was on vancomycin for 5 days and demonstrates signs of improvement. The rash was very light red and almost gone. On the evening of Sep 24, she developed chest pressure with associated dyspnea and nausea. Lasted for about 15 to 30 minutes. EKG was negative for ischemic. Troponin was negative x3. Echocardiogram demonstrated an EF of 70%. This morning, she was feeling well. Denies any reoccurrence of chest pain. Denies dyspnea, nausea, or abdominal pain. She felt ready for discharge and I sent her home with a course of doxycycline. DISCHARGE MEDICATIONS: Please see below. ALLERGIES: Please see below. PHYSICAL EXAMINATION ON DISCHARGE: VITAL SIGNS: Please see below. GENERAL: Comfortable, in no apparent distress HEENT: Head normocephalic, atraumatic NECK: Supple CARDIOVASCULAR EXAMINATION: Regular rate and rhythm RESPIRATORY EXAMINATION: Lungs clear to auscultation bilaterally ABDOMINAL EXAMINATION: Soft, non-tender, normal bowel sounds EXTREMITIES: Bilateral pitting edema SKIN: Nurse was present as vice principal. Rash on left breast and left thigh nearly gone. Rash on left arm is gone NEUROLOGICAL EXAMINATION: CN 3-12 grossly intact PSYCHIATRIC EXAMINATION: Normal mood and affect LABORATORY DATA: Please see below. IMAGING: US breast No sonographic evidence of malignancy. Annual mammographic screening is recommended unless otherwise clinically indicated. PROGNOSIS: Good ACTIVITY: As tolerated. DIET: 2gm sodium DISCHARGE PLAN: Home DISPOSITION: 01 Home, Self-Care. DISCHARGE INSTRUCTIONS: 1. Follow up with PCP within a week DISCHARGE CONDITION: Stable Total time spent on discharge planning, discharge summary, and medication reconciliation: 50 minutes Vital Signs/I&Os Vital Signs Date Time Temp Pulse Resp B/P (MAP) Pulse Ox O2 Delivery O2 Flow Rate FiO2 09/26/20 12:09 2.0 09/26/20 09:10 81 144/69 09/26/20 06:00 97.0 18 95 Nasal Cannula I&O- Last 24 Hours up to 6 AM 09/26/20 06:00 Intake Total 2200 ml Output Total 700 ml Balance 1500 ml Laboratory Data Labs 24H Laboratory Tests 2 09/26/20 08:11: Immature Granulocyte % (Auto) 0.0, Neutrophils (%) (Auto) 53.4, Lymphocytes (%) (Auto) 30.4, Monocytes (%) (Auto) 8.9H, Eosinophils (%) (Auto) 6.3H, Basophils (%) (Auto) 1.0, Neutrophils # (Auto) 1.0L, Lymphocytes # (Auto) 0.6L, Monocytes # (Auto) 0.2, Eosinophils # (Auto) 0.1, Basophils # (Auto) 0.0, Nucleated Red Blood Cells % (auto) 0.0, Immature Platelet Fraction 3.8, Anion Gap 5L, Glomerular Filtration Rate > 60.0, Calcium Level 8.4L, Vancomycin Level Trough 11.6 CBC/BMP Laboratory Tests 09/26/20 08:11 Microbiology Microbiology 09/19/20 Blood Culture - Final, Complete NO GROWTH AFTER 5 DAYS Discharge Medications Scheduled Apixaban (Eliquis) 2.5 Mg Tablet, 2.5 MG PO BID, (Reported) Bisoprolol Fumarate (Bisoprolol Fumarate) 5 Mg Tablet, 5 MG PO BID, (Reported) Calcium Carbonate (Calcium) 500 Mg Tablet, 1,000 MG PO QHS, (Reported) Cyanocobalamin (Vitamin B-12) (Vitamin B-12) 1,000 Mcg Tablet, 1,000 MCG PO DAILY, (Reported) Doxycycline Monohydrate (Doxycycline) 100 Mg Capsule, 100 MG PO BID Gabapentin (Gabapentin) 800 Mg Tablet, 800 MG PO BID, (Reported) Gabapentin (Gabapentin) 100 Mg Capsule, 400 MG PO DAILY, (Reported) AFTERNOON Levothyroxine Sodium (Levothyroxine Sodium) 88 Mcg Tablet, 88 MCG PO DAILY, (Reported) Pantoprazole Sodium (Pantoprazole Sodium) 40 Mg Tablet.dr, 40 MG PO BID, (Reported) Potassium Chloride (Potassium Chloride) 20 Meq Tab.er.prt, 20 MEQ PO QHS, (Reported) Torsemide (Torsemide) 20 Mg Tablet, 20 MG PO BID, (Reported) 0900, 1500 Trazodone HCl (Trazodone HCl) 150 Mg Tablet, 150 MG PO QHS, (Reported) Venlafaxine HCl (Venlafaxine HCl ER) 75 Mg Cap.er.24h, 75 MG PO DAILY, (Reported) Venlafaxine HCl (Venlafaxine HCl ER) 75 Mg Cap.er.24h, 150 MG PO QHS, (Reported) Vitamin B Complex (Vitamin B Complex) 1 Each Tablet, 1 TAB PO DAILY, (Reported) Scheduled PRN Cyclobenzaprine HCl (Cyclobenzaprine HCl) 10 Mg Tablet, 10 MG PO TID PRN for MUSCLE SPASMS, (Reported) Allergies Coded Allergies: naloxone (Verified Allergy, Unknown, sz, 07/30/20) codeine (Verified Adverse Reaction, Intermediate, CHESP PAIN, 07/30/20) ibuprofen (Verified Adverse Reaction, Intermediate, JOINT/ MUSCLE PAIN, 07/30/20) pregabalin (Verified Adverse Reaction, Intermediate, chest pain, 07/30/20) amoxicillin (Verified Adverse Reaction, Mild, vomiting and diarrhea, 07/30/20) clavulanic acid (Verified Adverse Reaction, Mild, vomiting and diarrhea, 07/30/20) erythromycin base (Verified Adverse Reaction, Mild, vomting diarrhea, 07/30/20) hydromorphone (Verified Adverse Reaction, Mild, ITCHING, 07/30/20) CAN TAKE IF BENADRYL GIVEN PRIOR SAVANNAH HALLMAN DO Sep 26, 2020 22:30
== END 2020-09-26 13:09 | disposition home health service (06) | DRG 951 ==
LOC: M ED 15:42 → M ED INP 22:12 → M MSPAV 09-20 01:56
PROVIDERS: ADMIT Family Medicine; ATTEND Internal Medicine
PROC: 05H Upper Veins, Insertion (ICD-10-PCS; principal; 2020-09-22 13:45)
DX: N61.0 Mastitis without abscess (principal); D61.818 Other pancytopenia; E88.01 Alpha-1-antitrypsin deficiency; I50.9 Heart failure, unspecified; L03.116 Cellulitis of left lower limb; E66.01 Morbid (severe) obesity due to excess calories; K75.81 Nonalcoholic steatohepatitis (NASH); L03.114 Cellulitis of left upper limb; E03.9 Hypothyroidism, unspecified; F41.9 Anxiety disorder, unspecified; F32.9 Major depressive disorder, single episode, unspecified; K21.9 Gastro-esophageal reflux disease without esophagitis; I87.8 Other specified disorders of veins; Z79.899 Other long term (current) drug therapy; Z88.5 Allergy status to narcotic agent; Z88.6 Allergy status to analgesic agent; Z88.0 Allergy status to penicillin; Z88.8 Allergy status to other drugs, medicaments and biological substances; E78.5 Hyperlipidemia, unspecified; Z79.01 Long term (current) use of anticoagulants; Z86.711 Personal history of pulmonary embolism; G47.33 Obstructive sleep apnea (adult) (pediatric); R91.8 Other nonspecific abnormal finding of lung field; G43.909 Migraine, unspecified, not intractable, without status migrainosus

== ENCOUNTER 2020-10-01 19:11 | Inpatient (IN) | payer OTHER ==
[~2020-10-01] VITALS: Ht 162.6 cm; Wt 159.1 kg
[2020-10-01] MEDS: traZODone 50 MG TAB PO SCH (00:48)
[~2020-10-01 19:11] MED LIST changes: +CEPH500C3 PO; +DOXY-350 PO
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
--- OUTSIDE RECORDS SUMMARY | 2020-10-01 19:34 | CCD ---
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 Active 3 4223364 Problem Insomnia due to medical condition G47.01 Active 71400379458640 Problem Hepatic cirrhosis, unspecifi ed hepatic cirrhosis type, unspecified whether ascites present K74.60 Active 16402411 Problem Arthralgia of multiple joints M25.50 Active 35 529318 Problem Chronic congestive heart failure, unspecified he art failure type I50.9 Active 12726652 Problem Chronic gastritis with bleeding, unspecified gastritis typ e K29.51 Active 2682809 Problem Recurrent major depressive disorder, in remission F33.40 Active 62142191 Problem LISA (nonalcoholic steatohepatitis) K75.81 Acti ve 973769979 Problem Nocturnal hypoxemia G47.34 Active 480430625 Problem Thrombocytopenia D69.6 Active 210901532 Problem Mixed stress and urge urinary incontinence N39.46 Active 411626175 Problem Macrocytosis D75.89 Active 571405755 Problem H/O: UGI bleed Z87.19 Active 439803266 Problem Hx of bacterial pneumonia Z87.01 Active 991964 004 Problem Atrial fibrillation, unspecified type I48.91 Ac tive 93209850 Problem Chronic diastolic heart failure I50.32 Active 775657749 Problem Acquired hypothyroidism E03.9 Active 27759571 2 Problem Age-related osteoporosis without current pathological fracture M81.0 Active 84354233 Problem History of DVT (deep vein thrombosis) Z86.718 Ac tive 040160639 Problem Neuropathy G62.9 Active 874495432 Problem Pancytopenia D61.818 Active 937077352 Problem Hypersplenism D73.1 Active 07995350 Problem Chronic respiratory failure with hypoxia J96.11 Active 729504687 Problem Chronic rhinitis J31.0 Active 23328394 ALLERGIES Allergen (clinical drug ingredient) Drug/Non Drug Allergy do cumented on EMR Reaction Allergy Type Onset Date Status hydromorphone Dilaudid(NDC Code:[address]-93) itching Drug Allerg y Active amoxicillin / clavulanate Augmentin(NDC Code:[address]-53) Diar josette, vomiting Drug Allergy Active seasonal,dust,mold,ragweed,chestnut blossoms, cut g Dy spnea Non Drug Allergy Active naloxone Narcan(NDC Code:[address]-79) seizures and high ly combative Drug Allergy Active pregabalin Lyrica(NDC Code:[address]-59) chest pain and ir regular heartbeat Drug Allergy Active ibuprofen IBU(NDC Code:[address]-81) severe joint and muscle pa in Drug Allergy Active tetracycline Tetracycline HCl(NDC Code:[address]-63) turned teeth yellow Drug Allergy Active codeine Codeine Sulfate(NDC Code:[address]-30) severe chest p ain Drug Allergy Active erythromycin Erythromycin(NDC Code:[address]-32) Vomiting, D iarrhea Drug Allergy Active ENCOUNTERS from 1955 to 2020-08-12 Encounter Location Date Provider Diagnosis [address] [address] Jul, Judi Rodolfo IMMUNIZATIONS Vaccine Route Administration Date [...] Education Language: Question Answer Notes Languages spoken: Iranian Scientology: Question Answer Notes Scientology 99 Other [...] Notes Start Da te End Date Status Spironolactone 25 mg 1 tablet Orally before bedtime Active Vitamin B Complex - 1 tab Orally Daily with meal for 90 days Mar, Active Sucralfate 1 GM TAKE ONE TABLET BY MOUTH FOUR TIMES DAVID Y Oral four times daily Unknown Pantoprazole Sodium 40 MG 1 tablet Orally Twice a day Active Stool Softener 100 MG 1 capsule as needed Orally bid prn constipation Active Cyclobenzaprine HCl 10 MG 1 tablet as needed Orally Three times a day for 30 Active Torsemide 20 MG 1 tab Orally Twice a day 9am and 3pm for 90 days Active Albuterol-Ipratropium 2.5-0.5 MG/3ML 3 ml as needed In halation every 6 hrs for cough, wheeze or SOB Aug, Unknown Oxygen _ 2-3 LPM daily, 2 Lpm at home 3lpm ambulating every other puff 24/7 nasal cannula ... Active TraZODone HCl 150 MG 1 tablet at bedtime Orally Once a day for 30 Active Calcium 500 MG 1 tablet Orally twice daily Active Effexor XR 75 MG as directed Orally 1 capsule in the morning then 2 capsules at bedtime for 30 Active Gabapentin 100 MG 1 capsule Orally Once a day in afternoon Active Ipratropium-Albuterol 0.5-2.5 (3) MG/3ML 3 ml as neede d Inhalation every 6 hrs prn Feb, Unknown Potassium Chloride 20 MEQ 1 tablet with food Orally Once a day for 90 days Active Bisoprolol Fumarate 5 MG 1 tablet Oral Daily Feb, Active Levothyroxine Sodium 88 MCG 1 tablet on an empty stoma ch in the morning Orally Once a day for 90 days Active Nebulizer/Tubing/Mouthpiece - as directed DX: J06.9 four stuart es daily as needed Aug, Active Eliquis 2.5 MG 1 tab Orally bid for 30 Days Aug, Active Cholecalciferol 10 MCG (400 UNIT) 1 capsule Orally before bedtim e Feb, Unknown Levofloxacin 750 MG 1 tablet Orally Once a day for 7 day(s) Jun, Unknown Vitamin B-12 1000 MCG 1 tablet Orally Once a day for 30 Active Gabapentin 800 MG 1 tablet Orally bid for 90 days Feb, Active Ferrous Sulfate 325 (65 Fe) MG 1 tablet Orally three times daily Unknown Imodium A-D 2 MG 1 capsule as needed Orally every 4 hours for di arrhea Jul, Active Simethicone 125 MG 1 tablet after meals and at bedtime as needed Orally Four times a day Active Fluticasone Propionate 50 MCG/ACT 1 spray in each nostril Nasall y bid prn Nov, Unknown PROCEDURES No Information RESULTS No Results REASON FOR VISIT [facility] d/c 08/01; chest pain, pneumonia MEDICAL (GENERAL) HISTORY Type Description Date Medical History Hypothyroidism Medical History Gbmkb-6-kdbblpspwyv, oxygen dependent - Dr. Tillman Medical History [...] Notes Treatment Notes Treatm ent Clinical Notes Jul, Other Discussion with patient PLAN OF TREATMENT Medication Medication Name Sig Start Date Stop Date Eliquis 2.5 MG 1 tab Orally bid for 30 Days Aug, Next Appt Details Provider Name:Judi Thorpe Rodolfo, 2020-08-21 02:15:00 PM, [address] [place] [address], [phone], Provider Name:Judi Reynolds 2020-09-01 11:15:00 AM, [address] [place] [address], [phone], Insurance Providers Payer Name Payer Address Payer Phone Insured Name Patient Relati onship to Insured Coverage Start Date Coverage End Date [facility] [employer]ATE CLAIMS DEPT [address] [place] [address] [phone] ZAMZAM SCHMITZ
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
--- OUTSIDE RECORDS SUMMARY | 2020-10-01 19:35 | CCD ---
Author Author [facility] Organization [facility] Address Unknown Phone Unavailable Care Team Providers Care Dumpman Name Role Phone Renetta Garsia PA Unavailable Unavailable Symenow, Renetta Lau PA Unavailable Unavailable Symenow, Renetta Lau PA Unavailable Unavailable Symenow, Renetta Lau PA Unavailable Unavailable Symenovelma, Renetta Lau PA Unavailable Unavailable Symenow, Renetta Lau PA Unavailable Unavailable Symenow, Renetta Lau PA Unavailable Unavailable Symenow, Renetta Lau PA Unavailable Unavailable Symenow, Renetta Lau PA Unavailable Unavailable Symenow, Renetta Judi PA Unavailable Unavailable Symenow, Renetta Lau PA Unavailable Unavailable Symenow, Renetta Judi PA Unavailable Unavailable Symenow, Renetta Bowdene PA Unavailable Unavailable Symenow, Renetta Judi PA Unavailable Unavailable Symenow, Renetta Judi PA Unavailable Unavailable Symenow, Renetta Judi PA Unavailable Unavailable Symenow, Renetta Judi PA Unavailable Unavailable Symenow, Renetta Judi PA Unavailable Unavailable Symenow, Renetta Judi PA Unavailable Unavailable Symenow, Renetta Judi PA Unavailable Unavailable Symenow, Renetta Judi PA Unavailable Unavailable Symenow, Renetta Judi PA Unavailable Unavailable Symenow, Renetta Judi PA Unavailable Unavailable Symenow, Renetta Judi PA Unavailable Unavailable Symenow, Rneetta Judi PA Unavailable Unavailable Symenow, Renetta Judi PA Unavailable Unavailable Symenow, Renetta Judi PA Unavailable Unavailable Symenow, Renetta Judi PA Unavailable Unavailable Symenow, Renetta Judi PA Unavailable Unavailable Symenow, Renetta Judi PA Unavailable Unavailable Symenow, Renetta Judi PA Unavailable Unavailable Symenow, Renetta Judi PA Unavailable Unavailable Symenow, Renetta Judi PA Unavailable Unavailable Symenow, Renetta Judi PA Unavailable Unavailable Symenow, Renetta Judi PA Unavailable Unavailable Symenow, Renetta Judi PA Unavailable Unavailable QUIROZ, H DEON COMMUNITY LIAISON OFFICER Unavailable Unavailable QUIROZ, H DEON COMMUNITY LIAISON OFFICER Unavailable Unavailable QUIROZ, H DEON COMMUNITY LIAISON OFFICER Unavailable Unavailable QUIROZ, H DEON COMMUNITY LIAISON OFFICER Unavailable Unavailable QUIROZ, H DEON COMMUNITY LIAISON OFFICER Unavailable Unavailable QUIROZ, H DEON COMMUNITY LIAISON OFFICER Unavailable Unavailable QUIROZ, H DEON COMMUNITY LIAISON OFFICER Unavailable Unavailable QUIROZ, H DEON COMMUNITY LIAISON OFFICER Unavailable Unavailable QUIROZ, H DEON COMMUNITY LIAISON OFFICER Unavailable Unavailable QUIROZ, H DEON COMMUNITY LIAISON OFFICER Unavailable Unavailable QUIROZ, H DEON COMMUNITY LIAISON OFFICER Unavailable Unavailable QUIROZ, H DEON COMMUNITY LIAISON OFFICER Unavailable Unavailable QUIROZ, H DEON COMMUNITY LIAISON OFFICER Unavailable Unavailable QUIROZ, H DEON COMMUNITY LIAISON OFFICER Unavailable Unavailable QUIROZ, H DEON COMMUNITY LIAISON OFFICER Unavailable Unavailable QUIROZ, H DEON COMMUNITY LIAISON OFFICER Unavailable Unavailable QUIROZ, H DEON COMMUNITY LIAISON OFFICER Unavailable Unavailable QUIROZ, H DEON COMMUNITY LIAISON OFFICER Unavailable Unavailable QUIROZ, H DEON COMMUNITY LIAISON OFFICER Unavailable Unavailable QUIROZ, H DEON COMMUNITY LIAISON OFFICER Unavailable Unavailable QUIROZ, H DEON COMMUNITY LIAISON OFFICER Unavailable Unavailable QUIROZ, H DEON COMMUNITY LIAISON OFFICER Unavailable Unavailable QUIROZ, H DEON COMMUNITY LIAISON OFFICER Unavailable Unavailable QUIROZ, H DEON COMMUNITY LIAISON OFFICER Unavailable Unavailable QUIROZ, H DEON COMMUNITY LIAISON OFFICER Unavailable Unavailable QUIROZ, H DEON COMMUNITY LIAISON OFFICER Unavailable Unavailable QUIROZ, H DEON COMMUNITY LIAISON OFFICER Unavailable Unavailable QUIROZ, H DEON COMMUNITY LIAISON OFFICER Unavailable Unavailable QUIROZ, H DEON COMMUNITY LIAISON OFFICER Unavailable Unavailable QUIROZ, H DEON COMMUNITY LIAISON OFFICER Unavailable Unavailable QUIROZ, H DEON COMMUNITY LIAISON OFFICER Unavailable Unavailable QUIROZ, H DEON COMMUNITY LIAISON OFFICER Unavailable Unavailable QUIROZ, H DEON COMMUNITY LIAISON OFFICER Unavailable Unavailable QUIROZ, H DEON COMMUNITY LIAISON OFFICER Unavailable Unavailable QUIROZ, H DEON COMMUNITY LIAISON OFFICER Unavailable Unavailable QUIROZ, H DEON COMMUNITY LIAISON OFFICER Unavailable Unavailable QUIROZ, H DEON COMMUNITY LIAISON OFFICER Unavailable Unavailable QUIROZ, H DEON COMMUNITY LIAISON OFFICER Unavailable Unavailable QUIROZ, H DEON COMMUNITY LIAISON OFFICER Unavailable Unavailable QUIROZ, H DEON COMMUNITY LIAISON OFFICER Unavailable Unavailable QUIROZ, H DEON COMMUNITY LIAISON OFFICER Unavailable Unavailable QUIROZ, H DEON COMMUNITY LIAISON OFFICER Unavailable Unavailable QUIROZ, H DEON COMMUNITY LIAISON OFFICER Unavailable Unavailable QUIROZ, H DEON COMMUNITY LIAISON OFFICER Unavailable Unavailable QUIROZ, H DEON COMMUNITY LIAISON OFFICER Unavailable Unavailable QUIROZ, H DEON COMMUNITY LIAISON OFFICER Unavailable Unavailable QUIROZ, H DEON COMMUNITY LIAISON OFFICER Unavailable Unavailable QUIROZ, H DEON COMMUNITY LIAISON OFFICER Unavailable Unavailable QUIROZ, H DEON COMMUNITY LIAISON OFFICER Unavailable Unavailable QUIROZ, H DEON COMMUNITY LIAISON OFFICER Unavailable Unavailable QUIROZ, H DEON COMMUNITY LIAISON OFFICER Unavailable Unavailable QUIROZ, H DEON COMMUNITY LIAISON OFFICER Unavailable Unavailable QUIROZ, H DEON COMMUNITY LIAISON OFFICER Unavailable Unavailable QUIROZ, H DEON COMMUNITY LIAISON OFFICER Unavailable Unavailable QUIROZ, H DEON COMMUNITY LIAISON OFFICER Unavailable Unavailable Hecj, Tavon Nielson MD Unavailable Unavailable Heitner, Tavon Nielson MD Unavailable Unavailable Heitner, Tavon Nielson MD Unavailable Unavailable Heitner, Tavon Nielson MD Unavailable Unavailable Heitner, Tavon Nielson MD Unavailable Unavailable Heitner, Tavon Nielson MD Unavailable Unavailable Heitner, Tavon Nielson MD Unavailable Unavailable Heitner, Tavon Nielson MD Unavailable Unavailable Heitner, Tavon Nielson MD Unavailable Unavailable Heitner, Tavon Nielson MD Unavailable Unavailable Heitner, Tavon Nielson MD Unavailable Unavailable Heitner, Tavon Nielson MD Unavailable Unavailable Heitner, Tavon Nielson MD Unavailable Unavailable Heitner, Tavon Nielson MD Unavailable Unavailable Heitner, Tavon Nielson MD Unavailable Unavailable Heitner, Tavon Nielson MD Unavailable Unavailable Heitner, Tavon Nielson MD Unavailable Unavailable Heitner, Tavon Nielson MD Unavailable Unavailable Heitner, Tavon Nielson MD Unavailable Unavailable Heitner, Tavon Nielson MD Unavailable Unavailable Heitner, Tavon Nielson MD Unavailable Unavailable Heitner, Tavon Nielson MD Unavailable Unavailable Heitner, Tavon Nielson MD Unavailable Unavailable Heitner, Tavon Nielson MD Unavailable Unavailable Heitner, Tavon Nielson MD Unavailable Unavailable Busby, L Abbi RPA Unavailable Unavailable Busby, L Abbi RPA Unavailable Unavailable Busby, L Abbi RPA Unavailable Unavailable Busby, L Abbi RPA Unavailable Unavailable Busby, L Abbi RPA Unavailable Unavailable Busby, L Abbi RPA Unavailable Unavailable Busby, L Abbi RPA Unavailable Unavailable Busby, L Abbi RPA Unavailable Unavailable Busby, L Abbi RPA Unavailable Unavailable Busby, L Abbi RPA Unavailable Unavailable Busby, L Abbi RPA Unavailable Unavailable Busby, L Abbi RPA Unavailable Unavailable Busby, L Abbi RPA Unavailable Unavailable Busby, L Abbi RPA Unavailable Unavailable Busby, L Abbi RPA Unavailable Unavailable Busby, L Abbi RPA Unavailable Unavailable Busby, L Abbi RPA Unavailable Unavailable Busby, L Abbi RPA Unavailable Unavailable Busby, L Abbi RPA Unavailable Unavailable Busby, L Abbi RPA Unavailable Unavailable Busby, L Abbi RPA Unavailable Unavailable Bsuby, L Abbi RPA Unavailable Unavailable Busby, L Abbi RPA Unavailable Unavailable Busby, L Abbi RPA Unavailable Unavailable Busby, L Abbi RPA Unavailable Unavailable Busby, L Abbi RPA Unavailable Unavailable Busby, L Abbi RPA Unavailable Unavailable Busby, L Abbi RPA Unavailable Unavailable Busby, L Abbi RPA Unavailable Unavailable Busby, L Abbi RPA Unavailable Unavailable Busby, L Abbi RPA Unavailable Unavailable Busby, L Abbi RPA Unavailable Unavailable Ruddy WHITMAN MD Unavailable Unavailable Ruddy WHITMAN MD Unavailable Unavailable Ruddy WHITMAN MD Unavailable Unavailable Ruddy WHITMAN MD Unavailable Unavailable Ruddy WHITMAN MD Unavailable Unavailable Ruddy WHITMAN MD Unavailable Unavailable Ruddy WHITMAN MD Unavailable Unavailable Ruddy WHITMAN MD Unavailable Unavailable Ruddy WHITMAN MD Unavailable Unavailable Ruddy WHITMAN MD Unavailable Unavailable Ruddy WHITMAN MD Unavailable Unavailable Ruddy WHITMAN MD Unavailable Unavailable Ruddy WHITMAN MD Unavailable Unavailable Ruddy WHITMAN MD Unavailable Unavailable Ruddy WHITMAN MD Unavailable Unavailable Ruddy WHITMAN MD Unavailable Unavailable Ruddy WHITMAN MD Unavailable Unavailable Ruddy WHITMAN MD Unavailable Unavailable Ruddy WHITMAN MD Unavailable Unavailable Ruddy WHITMAN MD Unavailable Unavailable Ruddy WHITMAN MD Unavailable Unavailable Ruddy WHITMAN MD Unavailable Unavailable Ruddy WHITMAN MD Unavailable Unavailable Ruddy WHITMAN MD Unavailable Unavailable Ruddy WHITMAN MD Unavailable Unavailable Ruddy WHITMAN MD Unavailable Unavailable CHANDRALRuddy Barahona MD Unavailable Unavailable CHANDRALARuddy MD Unavailable Unavailable TOREYRALARuddy MD Unavailable Unavailable Ruddy WHITMAN MD Unavailable Unavailable Ruddy WHITMAN MD Unavailable Unavailable Ruddy WHITMAN MD Unavailable Unavailable Ruddy WHITMAN MD Unavailable Unavailable Re-disclosure Warning The records that you are about to access may contain information from federally-assisted alcohol or drug abuse programs. If such information is present, then the following federally mandated warning applies: This information has been disclosed to you from records protected by federal confidentiality rules (42 CFR part 2). The federal rules prohibit you from making any further disclosure of this information unless further disclosure is expressly permitted by the written consent of the person to whom it pertains or as otherwise permitted by 42 CFR part 2. A general authorization for the release of medical or other information is NOT sufficient for this purpose. The Federal rules restrict any use of the information to criminally investigate or prosecute any alcohol or drug abuse patient.The records that you are about to access may contain highly sensitive health information, the redisclosure of which is protected by Article 27-F of the [facility] Public Health law. If you continue you may have access to information: Regarding HIV / AIDS; Provided by facilities licensed or operated by the [facility] Office of Mental Health; or Provided by the [facility] Office for People With Developmental Disabilities. If such information is present, then the following [facility] mandated warning applies: This information has been disclosed to you from confidential records which are protected by state law. State law prohibits you from making any further disclosure of this information without the specific written consent of the person to whom it pertains, or as otherwise permitted by law. Any unauthorized further disclosure in violation of state law may result in a fine or group home sentence or both. A general authorization for the release of medical or other information is NOT sufficient authorization for further disc losure. Allergies and Adverse Reactions Type Description Substance Reaction Status Data Source(s ) codeine Codeine Sulfate Codeine severe chest pain Active e CW1 ([facility]) tetracycline Tetracycline HCl Tetracycline turned teeth yellow Activ e eCW1 ([facility]) Drug allergy IBU Ibuprofen severe joint and muscle pain Acti ve eCW1 ([facility]) Drug allergy Lyrica pregabalin chest pain and irregular heartbeat Active eCW1 ([facility]) Drug allergy Narcan Naloxone seizures and highly combative Act renny eCW1 ([facility]) Drug allergy Augmentin amoxicillin / clavulanate Diarrhea, vomiting Active eCW1 ([facility]) Drug allergy Dilaudid Hydromorphone itching Active eCW1 ([facility]) Erythromycin Erythromycin Erythromycin Vomiting, Diarrhea Active eCW1 ([facility]) seasonal,dust,mold,ragweed,chestnut blossoms, cut g seasonal,dust,mold,ragweed,chestnut blossoms, cut g seasonal,dust,mold,ragweed,chestnut blossoms, cut g Dyspnea Active eCW1 ([facility]) seasonal,dust,mold,ragweed,chestnut blossoms, cut g seasonal,dust,mold,ragweed,chestnut blossoms, cut g seasonal,dust,mold,ragweed,chestnut blossoms, cut g Dyspnea Active eCW1 ([facility]) Codeine Sulfate Codeine Sulfate Codeine Sulfate severe chest pain Ac tive eCW1 ([facility]) seasonal,dust,mold,ragweed,chestnut blossoms, cut g seasonal,dust,mold,ragweed,chestnut blossoms, cut g seasonal,dust,mold,ragweed,chestnut blossoms, cut g Dyspnea Active eCW1 ([facility]) Family History Family Member Name Family Member Gender Family Member Status Date o f Status Description Data Source(s) Unknown Male Problem MEDENT ([facility]) Encounters Encounter Providers Location Date Indications Data Source(s ) [place] [address] [facility] [address] 09/19/2020 12:00:00 AM EST eCW1 ([facility]) [place] [address] [facility] [address] 09/10/2020 12:00:00 AM EST eCW1 ([facility]) [place] [address] [facility] [address] 09/09/2020 12:00:00 AM EST [facility]CW1 ([facility]) [place] [address] [facility] [address] 09/02/2020 12:00:00 AM EST eCW1 ([facility]) [place] [address] [facility] [address] 09/01/2020 12:00:00 AM EST eCW1 ([facility]) [place] [address] [facility] [address] 08/21/2020 12:00:00 AM EST eCW1 ([facility]) [place] [address] [facility] [address] 08/12/2020 12:00:00 AM EST eCW1 ([facility]) [place] [address] [facility] [address] 08/04/2020 12:00:00 AM EST eCW1 ([facility]) [place] [address] [facility] [address] 07/09/2020 12:00:00 AM EDT [facility] [place] [address] [facility] [address] 07/08/2020 12:00:00 AM EDT [facility] [place] [address] [facility] [address] 06/24/2020 12:00:00 AM EDT eCW1 [facility]) Outpatient Attender: Judi SMITH Main Office 04/02/2020 10:45:00 AM EDT MED[facility] ([facility]) [place] [address] [facility] [address] 03/24/2020 12:00:00 AM EDT [facility]CW1 ([facility]) [place] [address] [facility] [address] 03/21/2020 12:00:00 AM EDT eCW1 ([facility]) Outpatient Referrer: DEON QUIROZ NP 02/28/2020 06:12:00 AM E DT [facility] [place] [address] [facility] [address] 02/20/2020 12:00:00 AM EDT [facility] Outpatient [address] [place] [address], [place] [address] 02/15/2020 12:00:00 AM EDT [facility]CW1 [facility]) [address] [place] [address] 02/07/2020 12:00:00 AM EDT [facility]CW1 [facility]) Outpatient Attender: FRANCISCO Mora/Omar/Kaden anderson/Scott 01/17/2020 03:40:00 PM EDT MEDENT ([facility] [address] [address] 01/15/2020 12:00:00 AM EDT eCW1 [facility]) [address] [address] 01/07/2020 12:00:00 AM EDT [facility]CW1 [facility]) [address] [address] 01/03/2020 12:00:00 AM EDT eCW1 [facility]) Outpatient Referrer: DEON QUIROZ NP 12/13/2019 05:53:00 AM E DT [facility] Outpatient Attender: Abbi Mora/Omar/Dmitriy/Uzma vital 12/11/2019 11:00:00 AM EDT MED[facility] ([facility] [address] [address] 12/07/2019 12:00:00 AM EDT eCW1 [facility]) [address] [place] [address] 11/26/2019 12:00:00 AM EDT [facility]CW1 [facility]) [address] [address] 11/23/2019 12:00:00 AM EDT eCW1 ([facility]) [facility] [address] [place] [address], [place] [address] 11/19/2019 12:00:00 AM EDT eCW1 ([facility]) [facility] [address] [facility] [address] 11/07/2019 12:00:00 AM EST eCW1 ([facility]) [facility] [address] [place] [address], [place] [address] 11/07/2019 12:00:00 AM EST eCW1 ([facility]) Outpatient Referrer: DEON QUIROZ NP 11/06/2019 02:23:[address] [facility] [address] [place] [address], [place] [address] 11/06/2019 12:00:00 AM EST eCW1 ([facility]) [facility] [address] [place] [address], [place] [address] 10/29/2019 12:00:00 AM EST eCW1 ([facility]) [address] [address] 10/08/2019 12:00:00 AM EST eCW1 ([facility]) Outpatient Referrer: DEON QUIROZ NP 10/04/2019 01:37:[address] [facility] Outpatient Referrer: DEON QUIROZ NP 09/28/2019 05:46:[address] [facility] [address] [address] 09/26/2019 12:00:00 AM EST eCW1 ([facility]) [address] [address] 09/21/2019 12:00:00 AM EST eCW1 ([facility]) [facility] [address] [place] [address], [place] [address] 09/19/2019 12:00:00 AM EST eCW1 ([facility]) [address] [address] 09/13/2019 12:00:00 AM EST eCW1 ([facility]) Outpatient Referrer: DEON QUIROZ NP 08/28/2019 09:07:[address] [facility] [address] [address] 08/27/2019 12:00:00 AM EST eCW1 ([facility]) [address] [address] 08/24/2019 12:00:00 AM EST eCW1 ([facility]) [address] [address] 08/23/2019 12:00:00 AM EST eCW1 ([facility]) Outpatient Attender: FRANCISCO Mora/Omar/Kaden anderson/Scott 08/08/2019 09:50:00 AM EST [facility] ([facility] [address] [address] 08/08/2019 12:00:00 AM EST eCW1 ([facility]) [address] [address] 08/06/2019 12:00:00 AM EST eCW1 ([facility]) Outpatient Attender: Naga Robles MD Physical Therapy 12:00:00 PM EST [facility] ([facility]) [address] [address] 08/03/2019 12:00:00 AM EST eCW1 ([facility]) [address] [address] 08/03/2019 12:00:00 AM EST eCW1 ([facility]) Immunizations Vaccine Date Status Description Data Source(s) influenza, recombinant, quadrIvalent,injectable, prese rvative free 07/09/2020 11:09:00 AM EDT completed eCW1 ([facility]) influenza, recombinant, quadrIvalent,injectable, prese rvative free 07/09/2020 11:09:00 AM EDT completed eCW1 ([facility]) influenza, recombinant, quadrIvalent,injectable, prese rvative free 07/09/2020 11:09:00 AM EDT completed eCW1 ([facility]) influenza, recombinant, quadrIvalent,injectable, prese rvative free 07/09/2020 11:09:00 AM EDT completed eCW1 ([facility]) influenza, recombinant, quadrIvalent,injectable, prese rvative free 07/09/2020 11:09:00 AM EDT completed eCW1 ([facility]) influenza, recombinant, quadrIvalent,injectable, prese rvative free 07/09/2020 11:09:00 AM EDT completed eCW1 ([facility]) influenza, recombinant, quadrIvalent,injectable, prese rvative free 07/09/2020 11:09:00 AM EDT completed eCW1 ([facility]) influenza, recombinant, quadrIvalent,injectable, prese rvative free 07/09/2020 11:09:00 AM EDT completed eCW1 ([facility]) influenza, recombinant, quadrIvalent,injectable, prese rvative free 07/09/2020 11:09:00 AM EDT completed eCW1 ([facility]) influenza, recombinant, quadrIvalent,injectable, prese rvative free 07/09/2020 11:09:00 AM EDT completed eCW1 ([facility]) Medications Medication Brand Name Start Date Product Form Dose Route Admi nistrative Instructions Pharmacy Instructions Status Indications Reaction Description Data Source(s) Cephalexin 500 MG Oral Capsule [Keflex] Keflex 500 MG Keflex 500 MG 09/10/2020 12:00:00 AM EST 1.0 {capsule} active K eflex 500 MG eCW1 ([facility]) Cephalexin 500 MG Oral Capsule [Keflex] Keflex 500 MG Keflex 500 MG 09/10/2020 12:00:00 AM EST 1.0 {capsule} active K eflex 500 MG eCW1 ([facility]) apixaban 2.5 MG Oral Tablet [Eliquis] Eliquis 2.5 MG Eliquis 2.5 MG 08/12/2020 12:00:00 AM EST active Eliquis 2.5 MG eCW1 ([facility]) apixaban 2.5 MG Oral Tablet [Eliquis] Eliquis 2.5 MG Eliquis 2.5 MG 08/12/2020 12:00:00 AM EST active Eliquis 2.5 MG eCW1 ([facility]) apixaban 2.5 MG Oral Tablet [Eliquis] Eliquis 2.5 MG Eliquis 2.5 MG 08/12/2020 12:00:00 AM EST active Eliquis 2.5 MG eCW1 ([facility]) apixaban 2.5 MG Oral Tablet [Eliquis] Eliquis 2.5 MG Eliquis 2.5 MG 08/12/2020 12:00:00 AM EST active Eliquis 2.5 MG eCW1 ([facility]) apixaban 2.5 MG Oral Tablet [Eliquis] Eliquis 2.5 MG Eliquis 2.5 MG 08/12/2020 12:00:00 AM EST active Eliquis 2.5 MG eCW1 ([facility]) apixaban 2.5 MG Oral Tablet [Eliquis] Eliquis 2.5 MG Eliquis 2.5 MG 08/12/2020 12:00:00 AM EST active Eliquis 2.5 MG eCW1 ([facility]) apixaban 2.5 MG Oral Tablet [Eliquis] Eliquis 2.5 MG Eliquis 2.5 MG 08/12/2020 12:00:00 AM EST active Eliquis 2.5 MG eCW1 ([facility]) apixaban 2.5 MG Oral Tablet [Eliquis] Eliquis 2.5 MG Eliquis 2.5 MG 08/12/2020 12:00:00 AM EST active Eliquis 2.5 MG eCW1 ([facility]) Loperamide Hydrochloride 2 MG Oral Capsule [Imodium] I modium A-D 2 MG Imodium A- D 2 MG 08/01/2020 12:00:00 AM EST 1.0 {capsule_as_needed} active Imodium A-D 2 MG eCW1 ([facility]) Loperamide Hydrochloride 2 MG Oral Capsule [Imodium] I modium A-D 2 MG Imodium A- D 2 MG 08/01/2020 12:00:00 AM EST 1.0 {capsule_as_needed} active Imodium A-D 2 MG eCW1 ([facility]) Loperamide Hydrochloride 2 MG Oral Capsule [Imodium] I modium A-D 2 MG Imodium A- D 2 MG 08/01/2020 12:00:00 AM EST 1.0 {capsule_as_needed} active Imodium A-D 2 MG eCW1 ([facility]) Loperamide Hydrochloride 2 MG Oral Capsule [Imodium] I modium A-D 2 MG Imodium A- D 2 MG 08/01/2020 12:00:00 AM EST 1.0 {capsule_as_needed} active Imodium A-D 2 MG eCW1 ([facility]) Loperamide Hydrochloride 2 MG Oral Capsule [Imodium] I modium A-D 2 MG Imodium A- D 2 MG 08/01/2020 12:00:00 AM EST 1.0 {capsule_as_needed} active Imodium A-D 2 MG eCW1 ([facility]) Loperamide Hydrochloride 2 MG Oral Capsule [Imodium] I modium A-D 2 MG Imodium A- D 2 MG 08/01/2020 12:00:00 AM EST 1.0 {capsule_as_needed} active Imodium A-D 2 MG eCW1 ([facility]) Loperamide Hydrochloride 2 MG Oral Capsule [Imodium] I modium A-D 2 MG Imodium A- D 2 MG 08/01/2020 12:00:00 AM EST 1.0 {capsule_as_needed} active Imodium A-D 2 MG eCW1 ([facility]) Loperamide Hydrochloride 2 MG Oral Capsule [Imodium] I modium A-D 2 MG Imodium A- D 2 MG 08/01/2020 12:00:00 AM EST 1.0 {capsule_as_needed} active Imodium A-D 2 MG eCW1 ([facility]) Levofloxacin 750 MG Oral Tablet Levofloxacin 750 MG 07/09/2020 1 2:00:00 AM EDT 1.0 {tablet} suspended Levofloxa darius 750 MG eCW1 ([facility]) Levofloxacin 750 MG Oral Tablet Levofloxacin 750 MG 07/09/2020 1 2:00:00 AM EDT 1.0 {tablet} active Levofloxaci n 750 MG eCW1 ([facility]) Levofloxacin 750 MG Oral Tablet Levofloxacin 750 MG 07/09/2020 1 2:00:00 AM EDT 1.0 {tablet} active Levofloxaci n 750 MG eCW1 ([facility]) Levofloxacin 750 MG Oral Tablet Levofloxacin 750 MG 07/09/2020 1 2:00:00 AM EDT 1.0 {tablet} active Levofloxaci n 750 MG eCW1 ([facility]) Levofloxacin 750 MG Oral Tablet Levofloxacin 750 MG 07/09/2020 1 2:00:00 AM EDT 1.0 {tablet} active Levofloxaci n 750 MG eCW1 ([facility]) Levofloxacin 750 MG Oral Tablet Levofloxacin 750 MG 07/09/2020 1 2:00:00 AM EDT 1.0 {tablet} active Levofloxaci n 750 MG eCW1 ([facility]) Levofloxacin 750 MG Oral Tablet Levofloxacin 750 MG 07/09/2020 1 2:00:00 AM EDT 1.0 {tablet} active Levofloxaci n 750 MG eCW1 ([facility]) Levofloxacin 750 MG Oral Tablet Levofloxacin 750 MG 07/09/2020 1 2:00:00 AM EDT 1.0 {tablet} active Levofloxaci n 750 MG eCW1 ([facility]) Levofloxacin 750 MG Oral Tablet Levofloxacin 750 MG 07/09/2020 1 2:00:00 AM EDT 1.0 {tablet} suspended Levofloxa darius 750 MG eCW1 ([facility]) Levofloxacin 750 MG Oral Tablet Levofloxacin 750 MG 07/09/2020 1 2:00:00 AM EDT 1.0 {tablet} active Levofloxaci n 750 MG eCW1 ([facility]) Sucralfate 1000 MG Oral Tablet Sucralfate 04/01/2020 12:00:00 AM EDT ORAL active [facility] ([facility]) Vitamin B Complex-C 04/01/2020 12:00:00 AM EDT ORAL active [facility] ([facility]) Vitamin B 12 1 MG Oral Tablet Vitamin B-12 04/01/2020 12:00:00 AM EDT ORAL active [facility] ([facility]) Oxygen - Home 04/01/2020 12:00:00 AM EDT acti ve [facility] ([facility]) Lactulose 667 MG/ML Oral Solution Lactulose 04/01/2020 12:00:00 AM EDT ORAL active [facility] ([facility]) Bisoprolol Fumarate 5 MG Oral Tablet Bisoprolol Fumarate 12:00:00 AM EDT ORAL active [facility] ([facility]) Cholecalciferol 10 MCG (400 UNIT) UNK 02/19/2020 12:00:00 AM EDT 1.0 {capsule} active Cholecalciferol 10 MCG ( 400 UNIT) eCW1 ([facility]) Bisoprolol Fumarate 5 MG Oral Tablet Bisoprolol Fumarate 5 M G 02/19/2020 12:00:00 AM EDT 1.0 {tablet} active Bi soprolol Fumarate 5 MG eCW1 ([facility]) Albuterol 0.833 MG/ML / Ipratropium Brom doyle 0.167 MG/ML Inhalant Solution Ipratropium-Albuterol 0.5-2.5 (3) MG/3ML Ipratropium-Albuterol 0.5-2.5 (3) MG/3ML 02/19/2020 12:00:00 AM EDT 3.0 {ml_as_needed} active Ipratropium-Albuterol 0.5-2.5 (3) MG/3ML eCW1 ([facility]) Albuterol 0.833 MG/ML / Ipratropium Brom doyle 0.167 MG/ML Inhalant Solution Ipratropium-Albuterol 0.5-2.5 (3) MG/3ML Ipratropium-Albuterol 0.5-2.5 (3) MG/3ML 02/19/2020 12:00:00 AM EDT 3.0 {ml_as_needed} active Ipratropium-Albuterol 0.5-2.5 (3) MG/3ML eCW1 ([facility]) gabapentin 800 MG Oral Tablet Gabapentin 800 MG Gabapentin 8 00 MG 02/19/2020 12:00:00 AM EDT 1.0 {tablet} active Ga bapentin 800 MG eCW1 ([facility]) Bisoprolol Fumarate 5 MG Oral Tablet Bisoprolol Fumarate 5 M G 02/19/2020 12:00:00 AM EDT 1.0 {tablet} active Bi soprolol Fumarate 5 MG eCW1 ([facility]) Bisoprolol Fumarate 5 MG Oral Tablet Bisoprolol Fumarate 5 M G 02/19/2020 12:00:00 AM EDT 1.0 {tablet} active Bi soprolol Fumarate 5 MG eCW1 ([facility]) gabapentin 800 MG Oral Tablet Gabapentin 800 MG Gabapentin 8 00 MG 02/19/2020 12:00:00 AM EDT 1.0 {tablet} active Ga bapentin 800 MG eCW1 ([facility]) Cholecalciferol 10 MCG (400 UNIT) UNK 02/19/2020 12:00:00 AM EDT 1.0 {capsule} active Cholecalciferol 10 MCG ( 400 UNIT) eCW1 ([facility]) Cholecalciferol 10 MCG (400 UNIT) UNK 02/19/2020 12:00:00 AM EDT 1.0 {capsule} active Cholecalciferol 10 MCG ( 400 UNIT) eCW1 ([facility]) Bisoprolol Fumarate 5 MG Oral Tablet Bisoprolol Fumarate 5 M G 02/19/2020 12:00:00 AM EDT 1.0 {tablet} active Bi soprolol Fumarate 5 MG eCW1 ([facility]) Albuterol 0.833 MG/ML / Ipratropium Brom doyle 0.167 MG/ML Inhalant Solution Ipratropium-Albuterol 0.5-2.5 (3) MG/3ML Ipratropium-Albuterol 0.5-2.5 (3) MG/3ML 02/19/2020 12:00:00 AM EDT 3.0 {ml_as_needed} active Ipratropium-Albuterol 0.5-2.5 (3) MG/3ML eCW1 ([facility]) Bisoprolol Fumarate 5 MG Oral Tablet Bisoprolol Fumarate 5 M G 02/19/2020 12:00:00 AM EDT 1.0 {tablet} active Bi soprolol Fumarate 5 MG eCW1 ([facility]) gabapentin 800 MG Oral Tablet Gabapentin 800 MG Gabapentin 8 00 MG 02/19/2020 12:00:00 AM EDT 1.0 {tablet} active Ga bapentin 800 MG eCW1 ([facility]) Bisoprolol Fumarate 5 MG Oral Tablet Bisoprolol Fumarate 5 M G 02/19/2020 12:00:00 AM EDT 1.0 {tablet} active Bi soprolol Fumarate 5 MG eCW1 ([facility]) Cholecalciferol 10 MCG (400 UNIT) UNK 02/19/2020 12:00:00 AM EDT 1.0 {capsule} active Cholecalciferol 10 MCG ( 400 UNIT) eCW1 ([facility]) Albuterol 0.833 MG/ML / Ipratropium Brom doyle 0.167 MG/ML Inhalant Solution Ipratropium-Albuterol 0.5-2.5 (3) MG/3ML Ipratropium-Albuterol 0.5-2.5 (3) MG/3ML 02/19/2020 12:00:00 AM EDT 3.0 {ml_as_needed} active Ipratropium-Albuterol 0.5-2.5 (3) MG/3ML eCW1 ([facility]) Levofloxacin 500 MG Oral Tablet Levofloxacin 500 MG 02/19/2020 1 2:00:00 AM EDT 1.0 {tablet} active Levofloxaci n 500 MG eCW1 ([facility]) gabapentin 800 MG Oral Tablet Gabapentin 800 MG Gabapentin 8 00 MG 02/19/2020 12:00:00 AM EDT 1.0 {tablet} active Ga bapentin 800 MG eCW1 ([facility]) Albuterol 0.833 MG/ML / Ipratropium Brom doyle 0.167 MG/ML Inhalant Solution Ipratropium-Albuterol 0.5-2.5 (3) MG/3ML Ipratropium-Albuterol 0.5-2.5 (3) MG/3ML 02/19/2020 12:00:00 AM EDT 3.0 {ml_as_needed} active Ipratropium-Albuterol 0.5-2.5 (3) MG/3ML eCW1 ([facility]) Albuterol 0.833 MG/ML / Ipratropium Brom doyle 0.167 MG/ML Inhalant Solution Ipratropium-Albuterol 0.5-2.5 (3) MG/3ML Ipratropium-Albuterol 0.5-2.5 (3) MG/3ML 02/19/2020 12:00:00 AM EDT 3.0 {ml_as_needed} active Ipratropium-Albuterol 0.5-2.5 (3) MG/3ML eCW1 ([facility]) Bisoprolol Fumarate 5 MG Oral Tablet Bisoprolol Fumarate 5 M G 02/19/2020 12:00:00 AM EDT 1.0 {tablet} active Bi soprolol Fumarate 5 MG eCW1 ([facility]) Cholecalciferol 10 MCG (400 UNIT) UNK 02/19/2020 12:00:00 AM EDT 1.0 {capsule} active Cholecalciferol 10 MCG ( 400 UNIT) eCW1 ([facility]) gabapentin 800 MG Oral Tablet Gabapentin 800 MG Gabapentin 8 00 MG 02/19/2020 12:00:00 AM EDT 1.0 {tablet} active Ga bapentin 800 MG eCW1 ([facility]) Cholecalciferol 10 MCG (400 UNIT) UNK 02/19/2020 12:00:00 AM EDT 1.0 {capsule} active Cholecalciferol 10 MCG ( 400 UNIT) eCW1 ([facility]) Levofloxacin 500 MG Oral Tablet Levofloxacin 500 MG 02/19/2020 1 2:00:00 AM EDT 1.0 {tablet} active Levofloxaci n 500 MG eCW1 ([facility]) Bisoprolol Fumarate 5 MG Oral Tablet Bisoprolol Fumarate 5 M G 02/19/2020 12:00:00 AM EDT 1.0 {tablet} active Bi soprolol Fumarate 5 MG eCW1 ([facility]) Albuterol 0.833 MG/ML / Ipratropium Brom doyle 0.167 MG/ML Inhalant Solution Ipratropium-Albuterol 0.5-2.5 (3) MG/3ML Ipratropium-Albuterol 0.5-2.5 (3) MG/3ML 02/19/2020 12:00:00 AM EDT 3.0 {ml_as_needed} active Ipratropium-Albuterol 0.5-2.5 (3) MG/3ML eCW1 ([facility]) gabapentin 800 MG Oral Tablet Gabapentin 800 MG Gabapentin 8 00 MG 02/19/2020 12:00:00 AM EDT 1.0 {tablet} active Ga bapentin 800 MG eCW1 ([facility]) Cholecalciferol 10 MCG (400 UNIT) UNK 02/19/2020 12:00:00 AM EDT 1.0 {capsule} active Cholecalciferol 10 MCG ( 400 UNIT) eCW1 ([facility]) Cholecalciferol 10 MCG (400 UNIT) UNK 02/19/2020 12:00:00 AM EDT 1.0 {capsule} active Cholecalciferol 10 MCG ( 400 UNIT) eCW1 ([facility]) gabapentin 800 MG Oral Tablet Gabapentin 800 MG Gabapentin 8 00 MG 02/19/2020 12:00:00 AM EDT 1.0 {tablet} active Ga bapentin 800 MG eCW1 ([facility]) Cholecalciferol 10 MCG (400 UNIT) UNK 02/19/2020 12:00:00 AM EDT 1.0 {capsule} suspended Cholecalciferol 10 MCG (400 UNIT) eCW1 ([facility]) gabapentin 800 MG Oral Tablet Gabapentin 800 MG Gabapentin 8 00 MG 02/19/2020 12:00:00 AM EDT 1.0 {tablet} active Ga bapentin 800 MG eCW1 ([facility]) Cholecalciferol 10 MCG (400 UNIT) UNK 02/19/2020 12:00:00 AM EDT 1.0 {capsule} active Cholecalciferol 10 MCG ( 400 UNIT) eCW1 ([facility]) Bisoprolol Fumarate 5 MG Oral Tablet Bisoprolol Fumarate 5 M G 02/19/2020 12:00:00 AM EDT 1.0 {tablet} active Bi soprolol Fumarate 5 MG eCW1 ([facility]) Albuterol 0.833 MG/ML / Ipratropium Brom doyle 0.167 MG/ML Inhalant Solution Ipratropium-Albuterol 0.5-2.5 (3) MG/3ML Ipratropium-Albuterol 0.5-2.5 (3) MG/3ML 02/19/2020 12:00:00 AM EDT 3.0 {ml_as_needed} active Ipratropium-Albuterol 0.5-2.5 (3) MG/3ML eCW1 ([facility]) Cholecalciferol 10 MCG (400 UNIT) UNK 02/19/2020 12:00:00 AM EDT 1.0 {capsule} active Cholecalciferol 10 MCG ( 400 UNIT) eCW1 ([facility]) gabapentin 800 MG Oral Tablet Gabapentin 800 MG Gabapentin 8 00 MG 02/19/2020 12:00:00 AM EDT 1.0 {tablet} active Ga bapentin 800 MG eCW1 ([facility]) Cholecalciferol 10 MCG (400 UNIT) UNK 02/19/2020 12:00:00 AM EDT 1.0 {capsule} active Cholecalciferol 10 MCG ( 400 UNIT) eCW1 ([facility]) Bisoprolol Fumarate 5 MG Oral Tablet Bisoprolol Fumarate 5 M G 02/19/2020 12:00:00 AM EDT 1.0 {tablet} active Bi soprolol Fumarate 5 MG eCW1 ([facility]) Bisoprolol Fumarate 5 MG Oral Tablet Bisoprolol Fumarate 5 M G 02/19/2020 12:00:00 AM EDT 1.0 {tablet} active Bi soprolol Fumarate 5 MG eCW1 ([facility]) Cholecalciferol 10 MCG (400 UNIT) UNK 02/19/2020 12:00:00 AM EDT 1.0 {capsule} active Cholecalciferol 10 MCG ( 400 UNIT) eCW1 ([facility]) Albuterol 0.833 MG/ML / Ipratropium Brom doyle 0.167 MG/ML Inhalant Solution Ipratropium-Albuterol 0.5-2.5 (3) MG/3ML Ipratropium-Albuterol 0.5-2.5 (3) MG/3ML 02/19/2020 12:00:00 AM EDT 3.0 {ml_as_needed} active Ipratropium-Albuterol 0.5-2.5 (3) MG/3ML eCW1 ([facility]) gabapentin 800 MG Oral Tablet Gabapentin 800 MG Gabapentin 8 00 MG 02/19/2020 12:00:00 AM EDT 1.0 {tablet} active Ga bapentin 800 MG eCW1 ([facility]) gabapentin 800 MG Oral Tablet Gabapentin 800 MG Gabapentin 8 00 MG 02/19/2020 12:00:00 AM EDT 1.0 {tablet} active Ga bapentin 800 MG eCW1 ([facility]) gabapentin 800 MG Oral Tablet Gabapentin 800 MG Gabapentin 8 00 MG 02/19/2020 12:00:00 AM EDT 1.0 {tablet} active Ga bapentin 800 MG eCW1 ([facility]) gabapentin 800 MG Oral Tablet Gabapentin 800 MG Gabapentin 8 00 MG 02/19/2020 12:00:00 AM EDT 1.0 {tablet} active Ga bapentin 800 MG eCW1 ([facility]) Albuterol 0.833 MG/ML / Ipratropium Brom doyle 0.167 MG/ML Inhalant Solution Ipratropium-Albuterol 0.5-2.5 (3) MG/3ML Ipratropium-Albuterol 0.5-2.5 (3) MG/3ML 02/19/2020 12:00:00 AM EDT 3.0 {ml_as_needed} suspended Ipratropium-Albuterol 0.5-2.5 (3) MG/3ML eCW1 ([facility]) Albuterol 0.833 MG/ML / Ipratropium Brom doyle 0.167 MG/ML Inhalant Solution Ipratropium-Albuterol 0.5-2.5 (3) MG/3ML Ipratropium-Albuterol 0.5-2.5 (3) MG/3ML 02/19/2020 12:00:00 AM EDT 3.0 {ml_as_needed} active Ipratropium-Albuterol 0.5-2.5 (3) MG/3ML eCW1 ([facility]) Albuterol 0.833 MG/ML / Ipratropium Brom doyle 0.167 MG/ML Inhalant Solution Ipratropium-Albuterol 0.5-2.5 (3) MG/3ML Ipratropium-Albuterol 0.5-2.5 (3) MG/3ML 02/19/2020 12:00:00 AM EDT 3.0 {ml_as_needed} active Ipratropium-Albuterol 0.5-2.5 (3) MG/3ML eCW1 ([facility]) gabapentin 800 MG Oral Tablet Gabapentin 800 MG Gabapentin 8 00 MG 02/19/2020 12:00:00 AM EDT 1.0 {tablet} active Ga bapentin 800 MG eCW1 ([facility]) Bisoprolol Fumarate 5 MG Oral Tablet Bisoprolol Fumarate 5 M G 02/19/2020 12:00:00 AM EDT 1.0 {tablet} active Bi soprolol Fumarate 5 MG eCW1 ([facility]) Albuterol 0.833 MG/ML / Ipratropium Brom doyle 0.167 MG/ML Inhalant Solution Ipratropium-Albuterol 0.5-2.5 (3) MG/3ML Ipratropium-Albuterol 0.5-2.5 (3) MG/3ML 02/19/2020 12:00:00 AM EDT 3.0 {ml_as_needed} active Ipratropium-Albuterol 0.5-2.5 (3) MG/3ML eCW1 ([facility]) Albuterol 0.833 MG/ML / Ipratropium Brom doyle 0.167 MG/ML Inhalant Solution Ipratropium-Albuterol 0.5-2.5 (3) MG/3ML Ipratropium-Albuterol 0.5-2.5 (3) MG/3ML 02/19/2020 12:00:00 AM EDT 3.0 {ml_as_needed} suspended Ipratropium-Albuterol 0.5-2.5 (3) MG/3ML eCW1 ([facility]) Bisoprolol Fumarate 5 MG Oral Tablet Bisoprolol Fumarate 5 M G 02/19/2020 12:00:00 AM EDT 1.0 {tablet} active Bi soprolol Fumarate 5 MG eCW1 ([facility]) Bisoprolol Fumarate 5 MG Oral Tablet Bisoprolol Fumarate 5 M G 02/19/2020 12:00:00 AM EDT 1.0 {tablet} active Bi soprolol Fumarate 5 MG eCW1 ([facility]) Albuterol 0.833 MG/ML / Ipratropium Brom doyle 0.167 MG/ML Inhalant Solution Ipratropium-Albuterol 0.5-2.5 (3) MG/3ML Ipratropium-Albuterol 0.5-2.5 (3) MG/3ML 02/19/2020 12:00:00 AM EDT 3.0 {ml_as_needed} active Ipratropium-Albuterol 0.5-2.5 (3) MG/3ML eCW1 ([facility]) Cholecalciferol 10 MCG (400 UNIT) UNK 02/19/2020 12:00:00 AM EDT 1.0 {capsule} suspended Cholecalciferol 10 MCG (400 UNIT) eCW1 ([facility]) Bisoprolol Fumarate 5 MG Oral Tablet Bisoprolol Fumarate 5 M G 02/19/2020 12:00:00 AM EDT 1.0 {tablet} active Bi soprolol Fumarate 5 MG eCW1 ([facility]) gabapentin 800 MG Oral Tablet Gabapentin 800 MG Gabapentin 8 00 MG 02/19/2020 12:00:00 AM EDT 1.0 {tablet} active Ga bapentin 800 MG eCW1 ([facility]) Cholecalciferol 10 MCG (400 UNIT) UNK 02/19/2020 12:00:00 AM EDT 1.0 {capsule} active Cholecalciferol 10 MCG ( 400 UNIT) eCW1 ([facility]) Lactulose 667 MG/ML Oral Solution Lactulose 01/17/2020 12:00:00 AM EDT active [facility] ([facility] ) Fluticasone Propionate 50 MCG/ACT Fluticasone Propionate 50 MCG/ACT 12/07/2019 12:00:00 AM EDT 1.0 {spray_in_each_nostril} acti ve Fluticasone Propionate 50 MCG/ACT eCW1 ([facility]) Fluticasone Propionate 50 MCG/ACT Fluticasone Propionate 50 MCG/ACT 12/07/2019 12:00:00 AM EDT 1.0 {spray_in_each_nostril} susp ended Fluticasone Propionate 50 MCG/ACT eCW1 ([facility]) Fluticasone Propionate 50 MCG/ACT Fluticasone Propionate 50 MCG/ACT 12/07/2019 12:00:00 AM EDT 1.0 {spray_in_each_nostril} susp ended Fluticasone Propionate 50 MCG/ACT eCW1 ([facility]) Fluticasone Propionate 50 MCG/ACT Fluticasone Propionate 50 MCG/ACT 12/07/2019 12:00:00 AM EDT 1.0 {spray_in_each_nostril} acti ve Fluticasone Propionate 50 MCG/ACT eCW1 ([facility]) Fluticasone Propionate 50 MCG/ACT Fluticasone Propionate 50 MCG/ACT 12/07/2019 12:00:00 AM EDT 1.0 {spray_in_each_nostril} acti ve Fluticasone Propionate 50 MCG/ACT eCW1 ([facility]) Fluticasone Propionate 50 MCG/ACT Fluticasone Propionate 50 MCG/ACT 12/07/2019 12:00:00 AM EDT 1.0 {spray_in_each_nostril} acti ve Fluticasone Propionate 50 MCG/ACT eCW1 ([facility]) Fluticasone Propionate 50 MCG/ACT Fluticasone Propionate 50 MCG/ACT 12/07/2019 12:00:00 AM EDT 1.0 {spray_in_each_nostril} acti ve Fluticasone Propionate 50 MCG/ACT eCW1 ([facility]) Fluticasone Propionate 50 MCG/ACT Fluticasone Propionate 50 MCG/ACT 12/07/2019 12:00:00 AM EDT 1.0 {spray_in_each_nostril} acti ve Fluticasone Propionate 50 MCG/ACT eCW1 ([facility]) Fluticasone Propionate 50 MCG/ACT Fluticasone Propionate 50 MCG/ACT 12/07/2019 12:00:00 AM EDT 1.0 {spray_in_each_nostril} acti ve Fluticasone Propionate 50 MCG/ACT eCW1 ([facility]) Fluticasone Propionate 50 MCG/ACT Fluticasone Propionate 50 MCG/ACT 12/07/2019 12:00:00 AM EDT active 1 spray in each nostril eCW1 ([facility]) Fluticasone Propionate 50 MCG/ACT Fluticasone Propionate 50 MCG/ACT 12/07/2019 12:00:00 AM EDT 1.0 {spray_in_each_nostril} acti ve Fluticasone Propionate 50 MCG/ACT eCW1 ([facility]) Fluticasone Propionate 50 MCG/ACT Fluticasone Propionate 50 MCG/ACT 12/07/2019 12:00:00 AM EDT 1.0 {spray_in_each_nostril} acti ve Fluticasone Propionate 50 MCG/ACT eCW1 ([facility]) Fluticasone Propionate 50 MCG/ACT Fluticasone Propionate 50 MCG/ACT 12/07/2019 12:00:00 AM EDT 1.0 {spray_in_each_nostril} acti ve Fluticasone Propionate 50 MCG/ACT eCW1 ([facility]) Fluticasone Propionate 50 MCG/ACT Fluticasone Propionate 50 MCG/ACT 12/07/2019 12:00:00 AM EDT active 1 spray in each nostril eCW1 ([facility]) Fluticasone Propionate 50 MCG/ACT Fluticasone Propionate 50 MCG/ACT 12/07/2019 12:00:00 AM EDT 1.0 {spray_in_each_nostril} acti ve Fluticasone Propionate 50 MCG/ACT eCW1 ([facility]) Fluticasone Propionate 50 MCG/ACT Fluticasone Propionate 50 MCG/ACT 12/07/2019 12:00:00 AM EDT 1.0 {spray_in_each_nostril} acti ve Fluticasone Propionate 50 MCG/ACT eCW1 ([facility]) Fluticasone Propionate 50 MCG/ACT Fluticasone Propionate 50 MCG/ACT 12/07/2019 12:00:00 AM EDT 1.0 {spray_in_each_nostril} acti ve Fluticasone Propionate 50 MCG/ACT eCW1 ([facility]) cefpodoxime 200 MG Oral Tablet Cefpodoxime Proxetil 20 0 MG Cefpodoxime Proxetil 200 MG 08/24/2019 12:00:00 AM EST active 1 tablet with food eCW1 ([facility]) Albuterol-Ipratropium 2.5-0.5 MG/3ML UNK 08/23/2019 12:00: 00 AM EST 3.0 {ml_as_needed} suspended Albuterol-Iprat ropium 2.5-0.5 MG/3ML eCW1 ([facility]) Albuterol-Ipratropium 2.5-0.5 MG/3ML UNK 08/23/2019 12:00:00 AM EST active 3 ml as needed eCW1 ([facility]) Albuterol-Ipratropium 2.5-0.5 MG/3ML UNK 08/23/2019 12:00:00 AM EST active 3 ml as needed eCW1 ([facility]) Albuterol-Ipratropium 2.5-0.5 MG/3ML UNK 08/23/2019 12:00: 00 AM EST 3.0 {ml_as_needed} active Albuterol-Ipratro pium 2.5-0.5 MG/3ML eCW1 ([facility]) Nebulizer/Tubing/Mouthpiece - Nebulizer/Tubing/Mouthpiece - 08/23/2019 12:00:00 AM EST active Nebulizer/Tubing/ Mouthpiece - eCW1 ([facility]) Nebulizer/Tubing/Mouthpiece - Nebulizer/Tubing/Mouthpiece - 08/23/2019 12:00:00 AM EST active Nebulizer/Tubing/ Mouthpiece - eCW1 ([facility]) Nebulizer/Tubing/Mouthpiece - Nebulizer/Tubing/Mouthpiece - 08/23/2019 12:00:00 AM EST active Nebulizer/Tubing/ Mouthpiece - eCW1 ([facility]) Nebulizer/Tubing/Mouthpiece - Nebulizer/Tubing/Mouthpiece - 08/23/2019 12:00:00 AM EST active Nebulizer/Tubing/ Mouthpiece - eCW1 ([facility]) Albuterol-Ipratropium 2.5-0.5 MG/3ML UNK 08/23/2019 12:00: 00 AM EST 3.0 {ml_as_needed} active Albuterol-Ipratro pium 2.5-0.5 MG/3ML eCW1 ([facility]) doxycycline hyclate 100 MG Oral Capsule Doxycycline Hy clate 100 MG Doxycycline Hyclate 100 MG 08/23/2019 12:00:00 AM EST active 1 capsule eCW1 ([facility]) Albuterol-Ipratropium 2.5-0.5 MG/3ML UNK 08/23/2019 12:00: 00 AM EST 3.0 {ml_as_needed} active Albuterol-Ipratro pium 2.5-0.5 MG/3ML eCW1 ([facility]) Nebulizer/Tubing/Mouthpiece - Nebulizer/Tubing/Mouthpiece - 08/23/2019 12:00:00 AM EST active Nebulizer/Tubing/ Mouthpiece - eCW1 ([facility]) Nebulizer/Tubing/Mouthpiece - Nebulizer/Tubing/Mouthpiece - 08/23/2019 12:00:00 AM EST active as directed eCW1 ([facility]) Albuterol-Ipratropium 2.5-0.5 MG/3ML UNK 08/23/2019 12:00: 00 AM EST 3.0 {ml_as_needed} active Albuterol-Ipratro pium 2.5-0.5 MG/3ML eCW1 ([facility]) Albuterol-Ipratropium 2.5-0.5 MG/3ML UNK 08/23/2019 12:00: 00 AM EST 3.0 {ml_as_needed} active Albuterol-Ipratro pium 2.5-0.5 MG/3ML eCW1 ([facility]) Nebulizer/Tubing/Mouthpiece - Nebulizer/Tubing/Mouthpiece - 08/23/2019 12:00:00 AM EST active Nebulizer/Tubing/ Mouthpiece - eCW1 ([facility]) Albuterol-Ipratropium 2.5-0.5 MG/3ML UNK 08/23/2019 12:00: 00 AM EST 3.0 {ml_as_needed} active Albuterol-Ipratro pium 2.5-0.5 MG/3ML eCW1 ([facility]) Nebulizer/Tubing/Mouthpiece - Nebulizer/Tubing/Mouthpiece - 08/23/2019 12:00:00 AM EST active Nebulizer/Tubing/ Mouthpiece - eCW1 ([facility]) Albuterol-Ipratropium 2.5-0.5 MG/3ML UNK 08/23/2019 12:00: 00 AM EST 3.0 {ml_as_needed} active Albuterol-Ipratro pium 2.5-0.5 MG/3ML eCW1 ([facility]) Nebulizer/Tubing/Mouthpiece - Nebulizer/Tubing/Mouthpiece - 08/23/2019 12:00:00 AM EST active Nebulizer/Tubing/ Mouthpiece - eCW1 ([facility]) Nebulizer/Tubing/Mouthpiece - Nebulizer/Tubing/Mouthpiece - 08/23/2019 12:00:00 AM EST active Nebulizer/Tubing/ Mouthpiece - eCW1 ([facility]) Nebulizer/Tubing/Mouthpiece - Nebulizer/Tubing/Mouthpiece - 08/23/2019 12:00:00 AM EST active as directed eCW1 ([facility]) Albuterol-Ipratropium 2.5-0.5 MG/3ML UNK 08/23/2019 12:00: 00 AM EST 3.0 {ml_as_needed} active Albuterol-Ipratro pium 2.5-0.5 MG/3ML eCW1 ([facility]) Nebulizer/Tubing/Mouthpiece - Nebulizer/Tubing/Mouthpiece - 08/23/2019 12:00:00 AM EST active Nebulizer/Tubing/ Mouthpiece - eCW1 ([facility]) Nebulizer/Tubing/Mouthpiece - Nebulizer/Tubing/Mouthpiece - 08/23/2019 12:00:00 AM EST active Nebulizer/Tubing/ Mouthpiece - eCW1 ([facility]) Nebulizer/Tubing/Mouthpiece - Nebulizer/Tubing/Mouthpiece - 08/23/2019 12:00:00 AM EST active as directed eCW1 ([facility]) Nebulizer/Tubing/Mouthpiece - Nebulizer/Tubing/Mouthpiece - 08/23/2019 12:00:00 AM EST active Nebulizer/Tubing/ Mouthpiece - eCW1 ([facility]) Prednisone 20 MG Oral Tablet PredniSONE 20 MG PredniSONE 20 MG 08/23/2019 12:00:00 AM EST active 1 tablet eCW1 ([facility]) Nebulizer/Tubing/Mouthpiece - Nebulizer/Tubing/Mouthpiece - 08/23/2019 12:00:00 AM EST active Nebulizer/Tubing/ Mouthpiece - eCW1 ([facility]) Albuterol-Ipratropium 2.5-0.5 MG/3ML UNK 08/23/2019 12:00: 00 AM EST 3.0 {ml_as_needed} active Albuterol-Ipratro pium 2.5-0.5 MG/3ML eCW1 ([facility]) Albuterol-Ipratropium 2.5-0.5 MG/3ML UNK 08/23/2019 12:00: 00 AM EST 3.0 {ml_as_needed} active Albuterol-Ipratro pium 2.5-0.5 MG/3ML eCW1 ([facility]) Albuterol-Ipratropium 2.5-0.5 MG/3ML UNK 08/23/2019 12:00: 00 AM EST 3.0 {ml_as_needed} suspended Albuterol-Iprat ropium 2.5-0.5 MG/3ML eCW1 ([facility]) Albuterol-Ipratropium 2.5-0.5 MG/3ML UNK 08/23/2019 12:00: 00 AM EST 3.0 {ml_as_needed} active Albuterol-Ipratro pium 2.5-0.5 MG/3ML eCW1 ([facility]) Albuterol-Ipratropium 2.5-0.5 MG/3ML UNK 08/23/2019 12:00:00 AM EST active 3 ml as needed eCW1 ([facility]) Nebulizer/Tubing/Mouthpiece - Nebulizer/Tubing/Mouthpiece - 08/23/2019 12:00:00 AM EST active Nebulizer/Tubing/ Mouthpiece - eCW1 ([facility]) Albuterol-Ipratropium 2.5-0.5 MG/3ML UNK 08/23/2019 12:00: 00 AM EST 3.0 {ml_as_needed} active Albuterol-Ipratro pium 2.5-0.5 MG/3ML eCW1 ([facility]) Nebulizer/Tubing/Mouthpiece - Nebulizer/Tubing/Mouthpiece - 08/23/2019 12:00:00 AM EST active Nebulizer/Tubing/ Mouthpiece - eCW1 ([facility]) Albuterol-Ipratropium 2.5-0.5 MG/3ML UNK 08/23/2019 12:00: 00 AM EST 3.0 {ml_as_needed} active Albuterol-Ipratro pium 2.5-0.5 MG/3ML eCW1 ([facility]) Spironolactone 25 MG Oral Tablet Spironolactone 25 MG active 1 tablet with food eCW1 ([facility]) Spironolactone 25 MG Oral Tablet Spironolactone 25 MG active 1 tablet with food eCW1 ([facility]) Spironolactone 25 MG Oral Tablet Spironolactone 25 MG active 1 tablet with food eCW1 ([facility]) Spironolactone 25 MG Oral Tablet Spironolactone 25 MG active 1 tablet with food eCW1 ([facility]) Spironolactone 25 MG Oral Tablet Spironolactone 25 MG active 1 tablet with food eCW1 ([facility]) Spironolactone 25 MG Oral Tablet Spironolactone 25 MG active 1 tablet with food eCW1 ([facility]) Spironolactone 25 MG Oral Tablet Spironolactone 25 MG active 1 tablet with food eCW1 ([facility]) Spironolactone 25 MG Oral Tablet Spironolactone 25 MG active 1 tablet with food eCW1 ([facility]) Spironolactone 25 MG Oral Tablet Spironolactone 25 MG active 1 tablet with food eCW1 ([facility]) Spironolactone 25 MG Oral Tablet Spironolactone 25 MG active 1 tablet with food eCW1 ([facility]) Spironolactone 25 MG Oral Tablet Spironolactone 25 MG active 1 tablet with food eCW1 ([facility]) Spironolactone 25 MG Oral Tablet Spironolactone 25 MG active 1 tablet with food eCW1 ([facility]) Spironolactone 25 MG Oral Tablet Spironolactone 25 MG active 1 tablet with food eCW1 ([facility]) Insurance Providers Payer name Policy type / Coverage type Policy ID Covered republican ID Covered republican's relationship to ramon Policy Ramon Plan Information [facility] [id number] SP [id number] [facility] [id number] S [id number] [facility] [id number] SP [id number] ANSI-Commercial [id number] ANSI-Medicaid [id number] ANSI-Commercial [id number] 3al9mi4e-bpf8-3c89-mg89-2ym153148v5n ANSI-Medicaid [id number] [facility] Medicaid [id number] Self [id number] [place] Medicaid [facility] [facility] ([facility]) [id number] 800 Self [id number] Medicaid Medigap Part B [id number] Self [id number] [place] - Medicaid o Health Maintenance Organization (HMO) [id number] 800 Self [id number] ANSI-Medicaid [id number] MEDICAID [id number] ANSI-Medicaid [id number]-dh29-[id number] ANSI-Medicaid [id number]-[id number] [id number]-m1q9-18llui9q1ktw Medicaid P [id number] S [id number] ANSI-Commercial 716n2y5l-zo86-531m-6z1i-ba2m2swh23n2 945n3m5o-az54-710v-3k6q-iw2l3ega00r8 ANSI-Medicaid [id number]-t2hk-6rhr-bv86-[id number] 6w4jac44-i1bu-1uxf-vk94-hf7o4yqda1hd ANSI-Commercial dsr0tthf-2yv9-8r5q-895q-cu45rr60nlf6 eug8aqer-3co9-9w7s-047v-dc19py48oao2 ANSI-Medicaid [id number] okf9822n-erc7-9d16-6kgv-[id number] ANSI-Commercial 844h7o50-m605-3269-zy2k-39quy67339h7 505e5b78-y814-9580-mr9p-90odc04906d1 ANSI-Medicaid [id number]-2x4u-584r-[id number] 18si2na2-6c1e-0i6a-697h-k3kbic2h3267 ANSI-Medicaid [id number] 1epm1qj1-1219-0r6w-[id number] ANSI-Commercial 0md2h576-535b-7549-7252-7824hen5o313 6kg0g654-293y-2733-5397-3967nnf2b179 ANSI-Commercial 7jeg3nx6-4691-8193-6diy-973659h55245 5xhe8dj3-0895-6646-4ctg-016514j21994 ANSI-Commercial 992677v1-5488-49h7-3298-698l1pj9951a 303905b2-3292-30b7-2350-369v7pw4459m ANSI-Medicaid d452al8a-q6id-4561-[id number] [id number]-y5oe-7045-[id number] ANSI-Medicaid [id number]-i50e-[id number] e66e7o4s-h58h-0po0-ln22-588w3mo17ct7 ANSI-Commercial 9eq4d1z6-bs6q-91z0-e156-1r141z2h42f8 8rz6q3j3-nq2t-06w9-r143-9h485w0l02i8 ANSI-Medicaid [id number] 0i5lc815-1615-12ng-[id number] [facility] [id number] ANSI-Commercial 77580032-s243-68mz-kj81-3s9zlp4fr4vh 72528790-h963-71eh-mb44-9k2nkj6hl6rk ANSI-Medicaid [id number]-63ta-[id number] a1n2h34n-29zz-72om-22sg-k4i73fx2i53r ANSI-Medicaid [id number]-46s2-7dj5-0om3-o30lyhj0d0lx 23u6r22v-45x1-1os7-7at7-p06ogmh6w4ux ANSI-Commercial c2964zjo-3xs7-6r27-83h3-6783vw706929 w2529fyv-1gi0-8w97-79p2-0255ls880109 ANSI-Commercial b991703e-62dy-9q1d-p651-ch96a74751q2 x006977m-98it-7b3y-b730-zx42t56939u4 ANSI-Medicaid [id number]-v7ud-[id number] 8mh1z60o-j4vy-4o02-[id number] ANSI-Commercial 4b819b5u-6b94-2o5r-s0s9-2wr8h4226795 9b218n9y-0r56-7l4w-r7o3-0ze7t0893949 ANSI-Medicaid [id number]-ifiw-6765-zmci-[id number] 94nnkt74-yfcy-2170-nypx-133f122c19cf ANSI-Commercial 3725975j-o815-53b8-t80h-p30e087j22s9 2247119n-s842-13p0-h80v-u62a511i32o8 ANSI-[employer] kg64w578-8733-1035-wj6z-3sdh3tvyo6d1 ui13t598-2043-3943-eg3v-2klu5wyxo3n0 [facility] i2v21505-73p8-9wwk-9n74-1dk61o953572 m4y96760-79u3-7xct-6f94-3vw89w737863 ANSI-Medicaid [id number]-40k4-6lf8-68p1-[id number] 5193w2ym-45d5-6xb9-11f6-[id number] [employer]-Medicaid 3m0s5s38-97jm-3ah8-9c04-[id number] 2t6k1c53-52ui-2xo2-4u85-p47r5q81144i [employer]-Medicaid 15cqb103-c5xo-1950-oo69-[id number] 05cln242-x4bc-1639-ik17-ofg898niy083 ANSI-Medicaid [id number] 2095289i-l8v7-2434-5f26-jtqp22692j17 AN[employer] 8g84l27q-0c57-469u-cut4-k80m5wm707i5 3l35c08q-9m00-967n-pla0-t28z7xt458q7 ANSI-Commercial xxbx99c2-v4u3-9dyt-u11j-795500l0wf63 kkyc10u0-r1e4-7oyu-q45b-934211m6ts07 ANSI-Medicaid [id number] 5ffq2006-8189-6198-o19u-[id number] ANSI-Commercial e76bt994-bq29-385i-82z8-5710a7q5p56r i36zo998-qj94-437e-07z1-4275w5t0t04y ANSI-Medicaid zz55i1c8-5g31-9ls9-013g-g2gxf78z8hvz ov25a0m7-0d96-5oj2-195h-n6nsm51s8igk ANSI-Commercial 1840o99n-cld2-34l7-x136-g4255130i78w 8317y74w-kug9-32m5-i446-m7033943n93i ANSI-Medicaid [id number]-3k5u-i84g-[id number] g68d28g0-1ksy-9y9c-x43a-6c725726nah9 ANSI-Commercial itvr481s-s65z-5p33-5612-0531w7ag544y jktj434f-r01k-2h19-5455-6473l6sj603s ANSI-Commercial 0q864146-0dt3-5720-p08s-30u32jd2fp5u 2q926502-9mc9-2033-d49q-06j65cm7nv1c ANSI-Medicaid 7zl33e9i-6udk-8482-7nno-[id number] 4yz63f8o-1ecr-6666-7mrs-926o51k4u6lf ANSI-Medicaid [id number] 5wv7860d-05w4-2ad9-3961-9t69977gv925 ANSI-Commercial 9v079465-7940-6548-kkrh-5p3j4w4bt3ka 8i248345-5389-6025-yeuh-1a2i9d6vh4cy ANSI-Medicaid bh775m6f-mk6u-85jk-gc69-9z7w1t726sw7 im727a2v-cx8u-33qn-zj00-2d5y4v901hw1 ANSI-Commercial 025mrq2y-376x-37o8-u395-657gh2yd69f7 430ghl0u-674t-54c3-w180-247iw0ip86p0 ANSI-Medicaid my4ajaxr-vu1t-4610-c023-8j9a813ls7fc jz1wwynx-ed5q-0043-h604-1a4v452tp3wt ANSI-Commercial 652mg229-20s5-2gi9-kpgw-7h59725t6382 300lq848-95c2-1of4-bwry-7i72189q6948 ANSI-Commercial ijg1ij88-xtgm-0mh1-4405-99655n48c1ik pcb2us83-idnr-9fl8-7555-56672k26l3lf ANSI-Medicaid [id number]-u03w-0sz0-i86v-[id number] 0934968p-z26o-3jy9-c43o-7i180j25kv86 ANSI-Medicaid 3gy0bus0-6j30-48c2-[id number] 1zn5kwp7-9k29-63x2-[id number] ANSI-Commercial 20y3i0tx-8nep-5i6p-gu7v-t582581245n6 66u1t2qc-4jnb-9m8e-ft9j-t351772487i7 ANSI-Medicaid t6yn2b37-5fy3-4po6-imx1-bc72vf2pe32l m0dj8h30-1bx8-6nq6-xfb6-yp24yv8ct10z ANSI-Commercial ooy75911-9s6f-6eha-9uk2-j5185ju0b96x eda59340-9l2g-9hik-7bg7-c3215tr5p86d ANSI-Commercial 2ii19450-kp87-5y6w-7j89-872p40f1ujp1 6fe94641-dn14-0c8v-3a24-330b78l9wfa1 ANSI-Commercial 2z30e0f1-8837-2ja5-ykd8-2r1vmzd81ky6 9l43o9n8-9406-5gy7-vdn3-5y0djuf49ex9 [facility] [id number] c8r7jd33-283u-5902-r886-v6z4sg0o1515 [facility] [id number]-mq95-9ceb-[id number] [facility] [id number]-[id number]-cx8w-[id number] [facility] [id number]-s784-6a98-m8wv-[id number] ti47qs78-f385-3a24-f0qg-o4250ibq9y94 ANSI-Commercial 9pt142st-g4fb-3219-6h62-bgi53d34xla0 3gw418jk-c7za-7883-1k10-nvs59c19pfv1 ANSI-Commercial 72v6v09y-889t-9tp8-xs19-10302ru55516 78w4e20g-304e-4qs1-zm38-37163yi91322 ANSI-Commercial 47o9w99d-349p-1562-002l-874tfh8fl502 91j6t68h-034g-0588-420y-663tzo2hq593 ANSI-Medicaid [id number]-didw-8481-e36h-[id number]-hhzp-8260-b04l-4y91mm9x31h9 ANSI-Medicaid [id number] p251vd81-6o02-7ke2-5573-53b284w5w03y ANSI-Commercial 8qhnq21u-o492-8f22-010n-ix2qx38u685q 4xzpp33a-p453-0m92-005w-jg4lt46n643s ANSI-Commercial i56h7255-hr75-6713-zg0t-x9425t99yt5y d13d4477-xc46-0271-fq1s-u3961r04pc9w ANSI-Medicaid 24so8y6r-0l0m-4bh7-8400-m2b0jgq403pm 50ih9w2v-8l4s-5gu6-1224-w2i8yhb694vn ANSI-Commercial 63070ns3-53dx-05m1-rf08-617pn7111d64 45598wg6-04of-61q2-af29-217gz1484u02 [facility] [id number]-g9hi-5794-y5l7-[id number] zf77rq6z-v2bo-0002-m4u3-j89546d0g054 [facility] [id number]-2050-4sfi-6er3-[id number] 9z18s36m-2267-2hnc-5pg8-d72b8p413h00 ANSI-Medicaid [id number]-jvp7-6o33-2934-6oc4116s089f 1lh7l42f-blv0-4v15-7207-4wn7660h068z ANSI-Commercial 7w0660h8-989n-420j-94e9-l0j6k00a6136 0p8147v8-451j-381i-79a4-w5q4m16j4189 ANSI-Commercial e4x03890-7zhh-42vb-83kk-731s80t545h0 v6n58579-9kyg-38iy-33ki-885k71m669m3 ANSI-Medicaid [id number]-[id number] u4k7g1b3-8z44-75e6-[id number] ANSI-Medicaid [id number]-[id number] 7u3zgji4-54n4-7mp5-[id number] ANSI-Commercial 46r5aa59-nf2s-49in-l8j2-87xbs50771wg 72x8tv96-ja5d-95jx-n4c3-17sru92598sx ANSI-Commercial nj2p1136-s575-56o6-dl5n-1x63u00137sf bg8s6694-o617-62i7-ot1f-0i63k97089iw ANSI-Medicaid 800r3xke-6956-2lxn-2h4x-[id number] 364s8bmn-8689-0ifh-5a0w-2as8tvr6nh39 ANSI-Medicaid [id number]-[id number] ANSI-Commercial 7g57345q-8f13-3209-t6x6-r45j3584q33k 4f89117x-2j51-8204-c7j0-j44m2514x92t ANSI-Commercial 180jx1zt-gj5i-0c89-41s6-5r310s59t914 693bz6ks-gc5h-3k73-08z7-9q603n47x345 ANSI-Commercial 7r707930-de2m-662b-i88e-y04hqt5v8zde 9q085121-oh7w-799l-w04o-p66eny9d7iwc ANSI-Medicaid bq19eogg-98w7-575n-z10d-[id number] pn18gtvt-77q6-822q-m52b-g0290dz43l3n ANSI-Commercial 3ct3valy-68ja-92m8-01m3-vip04m6604x6 6bt9swsa-23zt-37x4-03s1-crl63b4579u6 ANSI-Medicaid [id number]-15sf-[id number] 1h8z8l52-166d-77bu-1265-l0774ek6fg89 ANSI-Medicaid [id number]-m9tl-[id number] 7d56s5e0-28l3-743n-l5oe-291503q0h676 ANSI-Medicaid [id number]-v508-7e01-85oo-248ql4js2jqe 844o6i43-f607-5k05-66sq-055tj5ha4vnw ANSI-Commercial 1b3b7n62-nv99-7r34-b5oj-f06im4hgs0m0 6m1f4u26-kw68-6q66-a5gs-u63ih6uht6h7 ANSI-Commercial 68d36011-8o9d-51a6-7q37-1th317s1170q 70z22867-4x1e-17q3-1c19-8lw889c1512u ANSI-Medicaid 1vb70nb5-36q5-3d76-6622-tro2t2x4vyc6 5ld01al9-43k3-5i54-8232-xmg7a5j6ruw2 ANSI-Medicaid s0w24526-1kxn-29f3-66d8-4joiy4blmn94 b4l88659-9hvp-90w1-46l9-4agik9xqwd89 ANSI-Commercial 709535u9-75qt-67u6-17r2-7454le90qrpv 219130d6-69ob-94r1-27i1-5807bt29lrjt ANSI-Commercial 6s855bd5-o590-1145-94v0-5d972522108z 4q735fk4-u355-4935-97x1-7w455130524t ANSI-Commercial iuh735t7-4884-9q73-1845-48ui2kerk12c vtd966d9-5882-7z31-0838-32mo2jtsi08x ANSI-Medicaid [id number]-5995-2p2b-f80m-4o663j7vbamc l047a10f-0113-7f5o-r39e-3w995f8gdwbl ANSI-Commercial b090v454-68sw-0p59-bf62-3e2g820qjbc4 j274m705-28ln-1e89-eb34-1o2y100gniv5 ANSI-Medicaid [id number]-o856-w6g1p304tpuk 831yc147-8882-655v-x974-d8y8s569oaoc ANSI-Commercial g3t204v7-2z73-2399-gv48-33agm35082d4 g1e825x8-0m72-3373-lz60-56lvp78405u9 ANSI-Commercial 0001i97r-4xe6-1e67-y86n-9i4brz484322 6797n23m-8kv2-8o09-w02k-0c3hre994885 ANSI-Medicaid xjia8es8-44m7-968p-b790-gr34po3i2he1 bhgs2mt2-73t0-757f-b679-pi16gk1y0yj9 ANSI-Medicaid [id number]-[id number]-a416-16x3-y25l-[id number] ANSI-Commercial 524d737g-6z4w-90k0-ym33-32p754l28576 812d654g-3k5q-46u5-ug76-30w153g04424 [facility] [id number]-[id number] 983q8wpg-2830-4i05-cu7j-r9sy72017183 ANSI-Medicaid [id number]-88n0-2323-x4n4-6q9htg5qc2t7 307024nv-67q9-5531-w6q8-3g5iog1rt0f7 ANSI-Commercial g2i9wrdy-0344-968q-w18e-3u86e96u6239 q9o9wtor-7210-337k-r66b-7f64t90v2498 ANSI-Medicaid [id number]-fw9l-0oyl-w48g-[id number] f91e87n6-wa5f-8mqx-p84i-4k1c6o797tfm ANSI-Commercial s320k5o6-qo06-01fe-3727-1p629l1p84a2 h378k2z6-ra92-47uc-0985-7j318f9h69s1 [facility] [id number]-[id number] bba716p6-7lf6-150j-e4mq-[id number] AN[employer] cxox9146-5z5d-524f-73b0-uq845mu0z1k2 ystv8354-5x4r-423u-91e6-cm170sp7l8x2 [facility] 5683n41u-67i6-16pt-815k-137a19w72407 3617s27v-31l5-27ne-107n-620v16f49827 [facility] 96304c49-3ga8-1vse-3835-7278w7v5ka03 79081l23-9ju9-7rnl-6198-0267a6a5re20 [facility]icaid [id number]-s03d-[id number] jjb9n4eg-k42b-7iw3-6rjj-[id number] [facility] [id number] [facility] [id number]-8j3v-[id number] 91045a64-6u50-55fx-2q7g-e1789yip8w5p [facility] 048cl48l-54be-956j-7092-j6su32t0u3o8 084kp75u-65ok-180r-6364-r6lv38q0x7p6 [facility] f2175f77-3c3c-1u59-v003-ur17b7u65928 i3903y46-4s2r-8q36-v121-bl88p6w17001 [facility] [id number]-p93a-5f99-4m1m-[id number] e165m11z-m48r-9g64-5y1n-64l295yt47s8 ANSI-Medicaid [id number]-[id number] olr89epa-bc16-006u-6e6w-242848039s8b ANSI-Commercial 3l72g74z-9a87-7hd5-66m7-ah426kuc3422 9y03s87v-4b85-6es1-53z3-ku101azo1062 ANSI-Commercial 970i050s-cw66-3g22-w3h4-f9ph4367f350 098d333q-mi43-0o83-o0w1-c7ui6774i485 [facility]-Medicaid [id number]-a15n-[id number] [facility]-Medicaid [id number]-tkqr-0vu3-df14-e1n4to4w8o7v 09i9xgb1-itcs-8my1-zz15-h0q2hj2d2u0x [facility] [id number]-lh1k-3155-972g-[id number] ANSI-Commercial e8363759-0513-5wl3-608g-2u1uw41f292x p3865855-6183-9ie6-834h-1k7hk91r238n ANSI-Commercial okg360lg-s41k-58s2-2178-3ky82qsln2xu fqr888ty-n14o-34l6-1957-5ah80egfs1cp ANSI-Medicaid [id number]-h004-[id number] ANSI-Commercial 9h1se358-613j-132d-b032-s0vn8rkj3jey 4a2ic886-142n-225e-c964-t3ut9bjb8nxp ANSI-Medicaid [id number] 61jwble7-55q7-0l7c-6952-[id number] ANSI-Commercial 11x6685k-p230-2424-dtdn-1z50a94382g5 22s1704v-j888-4958-ldgc-4i59p69921l6 ANSI-Commercial xn65138l-9t6o-50lo-79h8-250324q1wz9r lp29271a-9p9g-21pb-50o0-837322s0hr5i ANSI-Commercial qb54c480-oxm9-52x7-3iz9-05o445llg832 nq92g958-ggm2-46i6-6ha3-24h173prd964 ANSI-Medicaid [id number]-o279-2w0p-lt70-[id number]-j700-2m4k-we30-[id number] ANSI-Medicaid [id number]-p584-3gb8-0w64-[id number]-v272-5bl9-7y56-[id number] ANSI-Commercial 7fth020j-ox2m-5w33-i279-08ktzw5705l8 0bqs847p-eu6f-9e25-p226-56wcfa8037p8 ANSI-Medicaid [id number] k04q4d11-3707-10ua-[id number] ANSI-Commercial c70vc553-hh6p-469u-9908-9rdm2od562kf l22kl309-ow4x-267i-8759-7dcw0cs734ov ANSI-Medicaid [id number]-rvij-[id number] 1f58pu01-9130-04zr-akaf-93k3j92k6oq6 ANSI-Medicaid [id number] 1pb2cw77-782w-8291-m4xg-mjt96g6923g9 ANSI-Medicaid [id number]-[id number]-q46u-191u-r727-22u832a80jx6 [facility] x8dcouc8-bj29-3214-0gf6-4479ec1d1i9k q6dfadd1-lu20-1764-2wf9-9651na4q5n0s [facility] 90334pm6-2p4j-66a1-lb49-uj99514r6nm8 56915li8-2m0d-22m0-em57-bp03294e5ny7 [facility] 8b657338-j9u1-1q0o-5366-h599183470r6 0c053889-t3o5-4e0l-2988-d386230268k8 [facility] 75h91zy8-260y-080p-a1m2-11r8t899n2ew 01r67wj2-465w-592j-x2v9-06w8i590s6cc [facility] [id number] [facility] [id number]-w0dz-[id number] [facility] t76n738h-3mi8-918m-7ia4-53bwp246388p q63d510m-8rw7-031w-2ph9-97pzk113351e [facility] [id number] [facility] 739h04as-9d0v-5c29-y622-28w9m9u5w74d 969x87de-8m3r-5p81-v139-82d5v7r7f03s [facility] [id number] jiepm2z0-4666-0191-[id number] [facility] 7691yg9h-x93b-41j0-0071-9638595qp7j2 9763ac5f-x38o-89p7-7626-0187386pm2q2 [facility] [id number] cu2wl7ps-y9me-95x0-c9j2-et881vw573i6 [facility] 81729u2z-7w95-81kg-3653-6804m33547a8 23452a2a-6y92-87wr-4377-7917b16057v0 [facility] [id number] 236o149a-jk3p-551y-nmu4-f9y8l30p2s0f [facility] ae5545ng-4a42-8ltc-4l81-nu23ia13rv8y in5676re-0y42-9gxo-5g95-kd22bf09wb2g [facility] [id number]-w113-0603-s46y-[id number] [facility] [id number]-[id number]-45q1-3v5k-b20g-h5h22ae2g4i1 [facility] 0bcy7q05-10q1-37fa-ty3r-8u9158n7xi16 7chd9x47-78y6-87fx-zu7d-7l3933r3yy25 [facility] [id number]-pepj-[id number]-[id number] [id number]-apeu-7950-md73-zwl5t014xn8u [facility] 5y699634-0f08-7v97-l915-qs7eak12h69i 6o231074-8g60-7h43-k890-rg0qco09j62s [facility] g9j217s3-wr69-2mti-w039-j51052e00114 c4b950s4-gf46-3pen-x101-j45264p46771 [facility] [id number]-pvu2-[id number] [id number]-zja3-[id number] [facility] [id number]-a329-30i3-o4tg-3f847qv7ceue [facility] 4xl6219f-3t16-0oi0-z10z-6iu9979hq608 3ql0337k-6n29-4ar0-b81d-8cc9021mz274 [facility] 870273x5-8zg8-3914-xi0d-v9265x81485f 505267p5-7ak1-7886-te3a-a9511d99106e [facility]icaid [id number]-[id number] [facility]icaid [id number] qx9783m3-3975-3956-v257-[id number] [facility]icaid [id number] s3d1ug39-ncd2-70ma-23tq-5c974z82x587 [facility]Com[facility] yozd86kj-4ja8-71sa-fbd3-l15s0m51kkk6 zjqt32yo-9al2-38uw-okd1-u19y7u21gvd0 [facility]Commercial x6k53zcz-ia52-2491-954m-0649644hu334 o9s23nxu-xz55-6305-785p-9946761mp039 [facility]Commercial 2j3508u2-n73o-7u85-682j-85rgv5z01344 3k1099a5-m38g-8e73-437r-65ixg7x47427 [facility]icaid [id number]-7619-71up-[id number] [facility] [id number] 80b7k5g5-355m-5918-u6hh-r5mv0t10hh3s AN[facility]Commercial 525jlyje-h535-910qg776-716l-6f95-jyaa3t5b6w30 831sbaux-u539-836yv738-686q-2g00-ldji1z1s9m37 ANSI-Medicaid [id number]-147s-3a57-h796-0bngz4ol46t9 AN[facility]-Commercial hd24771n-9497-7574-3343-j102s311nj56 ax13729n-5358-0930-1304-j198w371ns80 AN[facility]-Medicaid [id number]-[id number] 77y3v7v3-8vng-12x4-7179-c37j663w7a4e ANSI-Commercial un46k049-08w3-2k85-661o-2729ks918tp1 mv75y319-38m6-5g05-898s-6265gt983xt7 AN[facility]-Medicaid [id number] 31zg12l7-0622-1h8d-[id number] AN[facility]-Commercial 6r7b3982-4ui9-6481-h845-41dz1x138364 1c0d8619-9ui2-6383-w035-00ya7t073117 AN[facility]-Medicaid [id number]-s68h-[id number] 2048qn3r-z78z-9ph0-5243-pu18f37jcfz4 ANSI-Commercial 1u119y19-ooc7-80i5-20x4-mv5gf6z10305 2z320o95-zev0-82x0-93r6-xl7bk0o57445 ANSI-Medicaid w4g953k0-1j85-24c0-2ofk-[id number] x7p263m3-1b14-71c5-4xbg-3a1q83tc064e AN[facility]-Commercial 1vz78k3a-0775-624a-h9j2-na81p3zr384z 2tb74h5e-5753-782f-p7l9-bm10t0ol921h ANSI-Medicaid [id number] [id number]-lv05-3u01-rxy7-z30k363itrw9 ANSI-Commercial y446upkd-95c1-65p2-f1pu-070272a8087n k444zakv-89v3-19a5-w6ip-207511e5944d ANSI-Medicaid [id number] d13r5pxc-082w-0059-ng24-08mq7t0f7924 ANSI-Medicaid [id number]-d47g-[id number] fzr17zlg-82d6-0227-s16b-[id number] AN[facility]-Commercial 5518f6b0-b91t-6b08-2eyg-s19qf30fy3lg 7930v8j6-x36m-5w66-6vqj-b03mz03gm2fw ANSI-Commercial l0k24x48-o6nq-1pzf-2jmx-65872l1a6l89 g1e50z28-a5vn-3ovp-9wnj-32323o2f6f98 ANSI-Medicaid [id number] 7u6nem78-z28m-28tu-d25l-1n1870t294yi ANSI-Commercial pr9ys9c7-w688-314o-t960-607p69kl6703 ni2le7w4-i429-224p-u861-207x37vo6701 ANSI-Commercial b1687z08-5417-7438-sr01-7798jt8o84cs d7264j41-0414-7511-xf00-2848ip4v00jk ANSI-Medicaid [id number]-[id number] 6n38r60r-ej3h-3h19-15vs-7205c2zsv3q7 ANSI-Medicaid [id number]-5p7w-[id number] 35bp6s21-y791-74mo-1d9l-5lg1gl2jl159 [facility] [id number] 2z22237z-w7f5-60xl-4675-03q5b088st59 [facility] 77v083v5-8k73-3369-h514-376p11d50673 62n709u9-7k55-3713-d556-829r97f76161 [facility] fwx4u9h4-6730-8a52-dkb7-63j6l9a3v297 rlw8q9v4-9454-3e00-oly4-22t7w3t2v544 [facility] 2589q2p8-028y-076q-2855-2n50l7i6838b 5677c5i7-714t-849r-8513-6b29l8a4501y AN[facility]-Medicaid [id number]-7906-863i-[id number] [facility] 107w4o76-h77l-2n01-3l1b-0e170ol6a1g1 701x8a46-a68u-9z01-8e1q-9k030kk4v5k9 ANSI-Medicaid [id number]-a14d-7k4v-z700-4777o5aez63s [facility]-Commercial 62n11085-r78r-8y20-9fk2-fbu1smdjf6rj 88w94307-n89m-2s47-5hx7-abx4otqns4mn [facility]-Medicaid [id number]-[id number]-b40j-[id number] ub5pjc8f-i77w-3rgh-j22d-14892ufwlhok [facility]-Medicaid [id number]-[id number] [facility] 98503etr-3iu0-5230-vw9d-6ahn1o36u998 97198uey-2ki2-0450-me7w-3zpp1z10t750 [facility]-Commercial 6byp9n6a-a624-58d9-78h4-19q6582s2w55 7aqc1g8h-d783-00q7-09v7-27p8129d7i88 ANSI-Medicaid [id number]-[id number]-r251-988l-u95d-874x8wa773sy ANSI-Medicaid [id number] 2yh4mi11-86d4-7p7p-vhr0-1088l8j138c8 ANS-Commercial 0q368e16-3137-3e93-5737-5z98472513pa 9u747z45-5228-9u65-1737-5v40711619ja [facility]-Medicaid [id number] [facility]-Medicaid [id number] ANSI-Commercial n06s6u32-u585-919u-j772-tc8403x975j8 h06f8k19-x796-185y-v729-ms6493c108j8 ANSI-Commercial 52709w1c-84yr-890e-70n5-83ia9109685y 39600x4g-21go-538m-70u3-71rk4014788i ANSI-Commercial 5660166j-1497-8456-y3n1-7i70208nc94k 7762594r-1031-0969-o4d6-0r73302hm37e ANSI-Commercial d24p78au-998c-1nrx-e592-9u022e39041s y15p87eh-505g-1mbn-a233-7n771l26876i ANSI-Medicaid [id number]-[id number] ANSI-Medicaid [id number] 91h2826h-3d06-7wav-w781-ft02a4u99o28 ANSI-Medicaid [id number]-g245-4w60fb084u04 ANSI-Commercial 7471x9u0-7qn5-8309-7w5i-975d74e07q11 6880r9a7-6kp6-2244-9u8h-800s08l33g88 ANSI-Commercial 59ry227g-3i55-3460-02t0-9760k2k78wrx 64kj653w-5s12-1310-40u0-8481w3b51qxc ANSI-Medicaid [id number]-rk1p-a1j9s6574n39 [facility] [id number] ANSI-Commercial v0j84t00-q318-61g1-a6x9-94051691de12 p0f50v51-v136-38w5-v1b0-20676453jj67 ANSI-Commercial v1rt6072-cm73-6535-b7n2-6obb0b2194en r9jf3700-zo30-7334-q6j2-0tqw7i1539yb [facility] [id number] [facility] [id number] [facility] 4w1nptwl-t2ro-382z-8199-0c38338y99y2 6z9ivewo-i5dt-719j-0151-4f56181w17s0 [facility] [id number] ANSI-Commercial q0c07071-24p7-5681-522l-x21180135rc8 j5v62366-63l0-3345-152s-m85991207bh7 ANSI-Commercial 9u076nb8-3w79-2o8j-xv9t-8wrt74891lwl 0q641je0-5e29-5h2d-hd8c-9gjv13241fvm [facility] [id number]-2v33-k6cp-e4im6l8m4aag ANSI-Commercial 922i24gm-keb9-75b8-af97-307t7ov1850f 725o20xw-wsf6-02i1-xp48-473t1nd6861r [facility]-Medicaid [id number] [facility]-Medicaid [id number]-98f2-2985-[id number] ANSI-Commercial 0u9e4e97-06a1-0y5r-o2h6-u6pif240l986 1d4r9f29-84y9-4s2g-q1i5-o1jrq481a523 ANSI-Commercial kutj7d7i-o845-99wg-8a2p-1401xf03wu0x tdgo0l5g-l915-43vc-9e5p-6409ky59vo5m [facility]-Medicaid [id number]-3v31-5zl7-zj12-jx7puy0395pi ANSI-Commercial mmosl122-fw04-5l98-281w-h198kyn9zo51 bfbdu125-uo80-4k96-362v-o931ney8jq93 ANSI-Commercial yc38w44a-qz86-224l-6m21-akw7465r7v9a qx69b12w-ic50-070y-4y63-ehc6440k6m3q [facility]-Medicaid [id number] [facility]-Medicaid [id number] [facility]-Medicaid [id number] [facility]-Commercial 018p9x44-ak9a-5317-8442-387gz01i1b43 212r4l08-sh5s-5405-9410-254zz51k7m54 [facility]-Medicaid [id number] Problems, Conditions, and Diagnoses Code Display Name Description Problem Type Effective Dates Data Source(s) I89.0 909712237 Lymphedema Problem 09/10/2020 12:00:00 AM ES T eCW1 ([facility]) M81.0 64410457 Age-related osteoporosis without current pathological fracture Problem 07/09/2020 12:00:00 AM EDT eCW1 ([facility]) 441437472 Chronic diastolic heart failure Chronic diastoli c heart failure Problem 04/02/2020 12:00:00 AM EDT MEDENT ([facility] [id number] Edema Edema Problem 04/02/2020 12:00:00 AM ED T [facility]ENT ([facility]) [id number] Electrocardiogram abnormal Electrocardiogram abnormal Problem 04/02/2020 12:00:00 AM EDT [facility] ([facility]) [id number] Dietary management surveillance Dietary manageme nt surveillance Problem 04/02/2020 12:00:00 AM EDT [facility] ([facility] [id number] Paroxysmal atrial fibrillation Paroxysmal atrial fibri llation Problem 04/02/2020 12:00:00 AM EDT [facility] ([facility]) I50.32 Chronic diastolic heart failure Chronic diastolic hear t failure Problem 12/07/2019 12:00:00 AM EDT eCW1 ([facility]) J31.0 [id number] Chronic rhinitis Problem 12/07/2019 12:00:00 AM EDT eCW1 ([facility]) J31.0 [id number] Chronic rhinitis Problem 12/07/2019 12:00:00 AM EDT eCW1 ([facility]) I50.32 Chronic diastolic heart failure Chronic diastolic hear t failure Problem 12/07/2019 12:00:00 AM EDT eCW1 ([facility]) J96.11 [id number] Chronic respiratory failure with hypoxia Problem 09/23/2019 12:00:00 AM EST eCW1 ([facility]) D73.1 [id number] Hypersplenism Problem 09/23/2019 12:00:00 AM EST eCW1 ([facility]) D61.818 [id number] Pancytopenia Problem 09/23/2019 12:00:00 AM EST eCW1 ([facility]) I48.91 [id number] Atrial fibrillation, unspecified type Pro blem 09/23/2019 12:00:00 AM EST eCW1 ([facility]) Z87.01 [id number] Hx of bacterial pneumonia Problem 09/23/2019 12:00:00 AM EST eCW1 ([facility]) Z87.19 [id number] H/O: UGI bleed Problem 09/23/2019 12:00:00 A M EST eCW1 ([facility]) J96.11 [id number] Chronic respiratory failure with hypoxia Problem 09/23/2019 12:00:00 AM EST eCW1 ([facility]) D73.1 [id number] Hypersplenism Problem 09/23/2019 12:00:00 AM EST eCW1 ([facility]) D61.818 [id number] Pancytopenia Problem 09/23/2019 12:00:00 AM EST eCW1 ([facility]) I48.91 [id number] Atrial fibrillation, unspecified type Pro blem 09/23/2019 12:00:00 AM EST eCW1 ([facility]) Z87.01 [id number] Hx of bacterial pneumonia Problem 09/23/2019 12:00:00 AM EST eCW1 ([facility]) Z87.19 [id number] H/O: UGI bleed Problem 09/23/2019 12:00:00 A M EST eCW1 ([facility]) Surgeries/Procedures Procedure Description Date Indications Data Source(s) Immunization: Flublok Quadrivalent (18 years & older) 0.5mL IM (Influenza) 07/09/2020 12:00:00 AM EDT eCW1 ([facility]) ECG ROUTINE ECG W/LEAST 12 LDS W/I&R 04/02/2020 12:00: 00 AM EDT [facility] ([facility]) Albuterol, up to 2.5 mg and ipratropium bromide, up to 0.5 mg, fda-approved final product, non-compounded, administered through dme 08/23/2019 12:00:00 AM EST eCW1 ([facility]) AIRWAY INHALATION TREATMENT 08/23/2019 12:00:00 AM EST eCW1 ([facility]) RADEX HAND MINIMUM 3 VIEWS 08/03/2019 12:00:00 AM EST [facility] ([facility]) Results ID Date Data Source [id number] 09/19/2020 10:41:00 PM EST [facility] Name Value Range Interpretation Code Description Data Skyla rce(s) Supporting Document(s) SARS coronavirus 2 RNA [Presence] in Res piratory specimen by CHARLES with probe detection NEGATIVE [facility] This lab was ordered by [facility] a nd reported by [facility] [place]. ID Date Data Source LACTIC ACID LEVEL, LACTATE 09/10/2020 12:00:00 AM EST eCW1 ( [facility]) Name Value Range Interpretation Code Description Data Skyla rce(s) Supporting Document(s) LACTIC ACID LEVEL, LACTATE eCW 1 ([facility]) ID Date Data Source C REACTIVE PROTEIN QUANTITATIV (At [facility]) 09/10/2020 12:00 :00 AM EST eCW1 ([facility]) Name Value Range Interpretation Code Description Data Skyla rce(s) Supporting Document(s) 0.66 0.00-0.30 C REACTIVE PROTEIN QUANTI TATIV eCW1 ([facility]) ID Date Data Source Comprehensive Metabolic Profile (CMP) 09/10/2020 12:00:00 AM EST eCW1 ([facility]) Name Value Range Interpretation Code Description Data Skyla rce(s) Supporting Document(s) 82 70-100 GLUCOSE, FASTING eCW1 ([facility]) 14 7-18 BLOOD UREA NITROGEN eCW1 ([facility]) 0.78 0.55-1.30 CREATININE FOR GFR eCW1 ([facility]) 4.1 3.5-5.1 POTASSIUM SERUM [facility] 139 136-145 SODIUM LEVEL eCW1 ([facility]) > 60.0 >45 GLOMERULAR FILTRATION RATE eCW 1 ([facility]) 108 98-107 CHLORIDE LEVEL eCW1 ([facility]) 9.0 8.8-10.2 CALCIUM LEVEL eCW1 ([facility]) 28 21-32 CARBON DIOXIDE LEVEL eCW1 ([facility]) 113 45-117 ALKALINE PHOSPHATASE eCW1 ([facility]) 18 12-78 ALT/SGPT eCW1 ([facility]) 31 7-37 AST/SGOT eCW1 ([facility]) 3.2 3.2-5.2 ALBUMIN eCW1 ([facility]) 5.9 6.4-8.2 TOTAL PROTEIN eCW1 ([facility]) 1.0 0.2-1.0 BILIRUBIN,TOTAL eCW1 [facility] 1.2 1.2-2.2 ALBUMIN/GLOBULIN RATIO eCW1 ([facility]) ID Date Data Source CBC with Differential 09/10/2020 12:00:00 AM EST eCW1 ([facility]) Name Value Range Interpretation Code Description Data Skyla rce(s) Supporting Document(s) 3.2 4.0-10.0 WHITE BLOOD COUNT eCW1 ([facility]) 3.38 4.00-5.40 RED BLOOD COUNT [facility]CW[facility] 9.5 12.0-15.5 HEMOGLOBIN eCW1 ([facility]) 33.0 36.0-47.0 HEMATOCRIT eCW1 ([facility]) 28.1 27.0-33.0 MEAN CORPUSCULAR HEMOGLOB IN eCW1 ([facility]) 97.6 80.0-96.0 MEAN CORPUSCULAR VOLUME e CW1 ([facility]) 16.2 11.5-14.5 RED CELL DISTRIBUTION WID TH eCW1 ([facility]) 28.8 32.0-36.5 MEAN CORPUSCULAR HGB CONC eCW1 ([facility]) 61 150-450 PLATELET COUNT, AUTOMATED eCW1 ([facility]) 74.2 36.0-66.0 NEUTROPHILS % eCW1 ([facility]) 16.8 24.0-44.0 LYMPH % eCW1 ([facility]) 5.9 0.0-5.0 MONO % eCW1 ([facility]) 2.2 0.0-3.0 EOS % eCW1 ([facility]) 0.3 0.0-1.0 BASO % eCW1 ([facility]) 2.4 1.5-8.5 NEUTROPHILS # eCW1 ([facility]) 0.5 1.5-5.0 LYMPH # eCW1 ([facility]) 0.2 0.0-0.8 MONO # eCW1 ([facility]) 0.0 0.0-0.2 BASO # eCW1 ([facility]) 0.1 0.0-0.5 EOS # eCW1 ([facility]) ID Date Data Source [id number] 03/21/2020 02:19:00 PM EDT [facility] ([facility] Name Value Range Interpretation Code Description Data Skyla rce(s) Supporting Document(s) Calcium [Mass/volume] in Serum or Plasma 9.0 [facility] ([facility]) Albumin [Mass/volume] in Serum or Plasma 3.0 [facility] ([facility]) Alanine aminotransferase [Enzymatic activity/volume] in Serum or Pl asma 21 [facility] ([facility]) Chloride [Moles/volume] in Serum or Plasma 113 [facility] ([facility]) Carbon dioxide, total [Moles/volume] in Serum or Plasma 25 [facility] ([facility]) Potassium [Moles/volume] in Serum or Plasma 3.8 [facility] ([facility]) Alkaline phosphatase [Enzymatic activity/volume] in Serum or Plasma 1 02 [facility] ([facility]) Protein [Mass/volume] in Serum or Plasma 5.8 [facility] ([facility]) Sodium 143 [facility] ([facility] Aspartate aminotransferase [Enzymatic activity/volume] in Serum or Plasma 27 [facility] ([facility]) Creatinine For GFR 0.72 [facility] ([facility]) Urea nitrogen [Mass/volume] in Serum or Plasma 18 [facility] ([facility]) Glucose 97 70-100 [facility] ([facility]) ID Date Data Source [id number] 03/21/2020 02:19:00 PM EDT [facility] ([facility]) Name Value Range Interpretation Code Description Data Skyla rce(s) Supporting Document(s) White Blood Count 3.7 4.0-10.0 [facility] ([facility]) Red Blood Count 3.96 4.00-5.40 [facility] ([facility]) Hemoglobin 13.1 [facility] ([facility]) Platelets 61 150-450 [facility] Hematocrit 39.9 [facility] ([facility]) ID Date Data Source [id number] 02/13/2020 09:38:00 AM EDT [facility]) Name Value Range Interpretation Code Description Data Skyla rce(s) Supporting Document(s) Hepatitis A virus IgG Ab [Units/volume] in Serum Laboratory test result Abnormal (applies to non-numeric results) [facility] ([facility], ) Performed at: RN - [facility] [address] [id number] Meeting Coordinator: Selene Garrido MD, Phone: [phone] Hepatitis B virus surface Ab [Presence] in Serum by mey Laboratory test result Normal (applies to non-numeric results) [facility] ([facility]) [id number]-[id number] [Mass/volume] in Serum or Plasma 4.4 ng/mL Normal (applies to non-numeric results) [facility] ([facility]) THE AFP ASSAY IS PERFORMED ON THE [employer] BY CHEMILUMINESCENCE AND SHOULD NOT BE COMPARED INTERCHANGEABLY WITH OTHER METHODS. IT SHOULD NOT BE USED ALONE A SCREENING TEST OR DIAGNOSIS FOR THE PRESENCE OR ABSENCE OF MALIGNANT DISEASE. THESE RESULTS ARE NOT INTERPRETABLE IN FEMALES. PREDICTIONS OF DISEASE RECURRENCE SHOULD NOT BE BASED SOLELY ON VALUES OBTAINED FROM SERIAL PATIENT SERUM VALUES. Platelets reticulated/100 platelets in Blood by Automated count 3.6 % 0.0-9.59 Normal (applies to non-numeric results) [facility]) ID Date Data Source [id number] 02/13/2020 09:38:00 AM EDT [facility]) Name Value Range Interpretation Code Description Data Skyla rce(s) Supporting Document(s) Creatinine For GFR 0.74 mg/dL 0.55-1.30 Normal (applies to non -numeric results) [facility] ([facility]) Glomerular Filtration Rate Laboratory test result Normal (applies to non- numeric results) [facility]) <content>Units are mL/min/1.73 m2</content>
<content></content>
<content>Chronic Kidney Disease Staging per NKF:</content>
<content></content>
<content>Stage I & II GFR >=60 Normal to Mildly Decreased</content>
<content>Stage III GFR 30- 59 Moderately Decreased</content>
<content>Stage IV GFR 15-29 Severely Decreased</content>
<content>Stage V GFR <15 Very Little GFR Left</content>
<content>ESRD GFR <15 on COMMUTER TRAIN OPERATOR</content>
<content></content> ID Date Data Source [id number] 02/13/2020 09:38:00 AM EDT [facility]) Name Value Range Interpretation Code Description Data Skyla rce(s) Supporting Document(s) Urea nitrogen [Mass/volume] in Serum or Plasma 17 mg/dL 7 -18 Normal (applies to non-numeric results) [facility]) ID Date Data Source [id number] 02/13/2020 09:38:00 AM EDT [facility]) Name Value Range Interpretation Code Description Data Skyla rce(s) Supporting Document(s) Inr 1.22 Normal (applies to non-numeric resul ts) [facility] ([facility]) THERAPUTIC HUMAN INR VALUES INDICATIONS NORMAL RANGES PROPHYLAXIS/TREATMENT OF: VENOUS THROMBOSIS 2.0-3.0 PULMONARY EMBOLISM 2.0-3.0 PREVENTION OF SYSTEMIC EMBOLISM FROM: TISSUE HEART VALVES 2.0-3.0 ACUTE MYOCARDIAL INFARCTION 2.0-3.0 VALVULAR HEART DISEASE 2.0-3.0 ATRIAL FIBRILLATION 2.0-3.0 MECHANICAL VALVES(HIGH RISK) 2.5-3.5 RECURRENT MYOCARDIAL INFARCTION 2.5-3.5 Prothrombin Time 15.1 s 11.8-14.0 Above high normal [facility]) Partial Thromboplastin Time 30.4 s 25.0-38.4 Norm al (applies to non-numeric results) [facility]) ID Date Data Source [id number] 02/13/2020 09:38:00 AM EDT [facility]) Name Value Range Interpretation Code Description Data Skyla rce(s) Supporting Document(s) Total Iron Binding Capacity 345 ug/dL 250-450 Norm al (applies to non-numeric results) [facility] ([facility]) Iron (Fe) 127 ug/dL 50-170 Normal (applies to non-numeric resul ts) [facility] ([facility]) Percent Saturation 36.8 % 13.2-45.0 Normal (applies to non-numer ic results) [facility]) ID Date Data Source [id number] 02/13/2020 09:38:00 AM EDT [facility]) Name Value Range Interpretation Code Description Data Skyla rce(s) Supporting Document(s) Ferritin [Mass/volume] in Serum or Plasma 19 ng/mL 8-252 Normal (applies to non- numeric results) [facility]) ID Date Data Source [id number] 02/13/2020 09:38:00 AM EDT [facility]) Name Value Range Interpretation Code Description Data Skyla rce(s) Supporting Document(s) Red Blood Count 4.17 10 4.00-5.40 Normal (applies to non-numeric results) [facility] ([facility]) White Blood Count 3.4 10 4.0-10.0 Below low normal M [facility] ([facility]) Hemoglobin 13.2 g/dL 12.0-15.5 Normal (applies to non-numeric resul ts) [facility] ([facility]) Mean Corpuscular Hemoglobin 31.7 pg 27.0-33.0 Norm al (applies to non-numeric results) [facility] ([facility]) Hematocrit 41.2 % 36.0-47.0 Normal (applies to non-numeric resul ts) [facility]) Mean Corpuscular Volume 98.8 fl 80.0-96.0 Above high [facility] Platelet Count, Automated 63 10 150-450 Below low normal [facility] ([facility]) Mean Corpuscular HGB Conc 32.0 g/dL 32.0-36.5 Normal (applies to non-numeric results) [facility] ([facility]) Red Cell Distribution Width 14.6 % 11.5-14.5 Above high normal [facility] ([facility]) Eos % 5.7 % 0.0-3.0 Above high normal [facility] ([facility]) [place] % 6.5 % 0.0-5.0 Above high normal [facility] ([facility]) Lymph % 20.2 % 24.0-44.0 Below low normal [facility] ( [facility]) Neutrophils % 67.0 % 36.0-66.0 Above high normal MEDE NT ([facility]) Nucleated Red Blood Cell % 0.0 % 0-0 Normal (applies to n on-numeric results) [facility] ([facility]) Immature Granulocyte % 0.3 % 0-3.0 Normal (applies to non-n umeric results) [facility] Baso % 0.3 % 0.0-1.0 Normal (applies to non-numeric resul ts) [facility] ([facility]) Lymph # 0.7 10 1.5-5.0 Below low normal [facility] ( [facility]) Eos # 0.2 10 0.0-0.5 Normal (applies to non-numeric resul ts) [facility]) [place] # 0.2 10 0.0-0.8 Normal (applies to non-numeric resul ts) [facility] ([facility]) Neutrophils # 2.3 10 1.5-8.5 Normal (applies to non-numeric re sults) [facility] ([facility]) Baso # 0.0 10 0.0-0.2 Normal (applies to non-numeric resul ts) [facility]) ID Date Data Source [id number] 10/10/2019 02:04:00 PM EST [facility]) Name Value Range Interpretation Code Description Data Skyla rce(s) Supporting Document(s) Bheij-6-[id number] [Mass/volume] in Serum or Plasma 4.4 ng/mL Normal (applies to non-numeric results) [facility]) THE AFP ASSAY IS PERFORMED ON THE [employer] BY CHEMILUMINESCENCE AND SHOULD NOT BE COMPARED INTERCHANGEABLY WITH OTHER METHODS. IT SHOULD NOT BE USED ALONE A SCREENING TEST OR DIAGNOSIS FOR THE PRESENCE OR ABSENCE OF MALIGNANT DISEASE. THESE RESULTS ARE NOT INTERPRETABLE IN FEMALES. PREDICTIONS OF DISEASE RECURRENCE SHOULD NOT BE BASED SOLELY ON VALUES OBTAINED FROM SERIAL PATIENT SERUM VALUES. Platelets reticulated/100 platelets in Blood by Automated count 4.7 % 0.0-9.59 Normal (applies to non-numeric results) [facility] ([facility]) Blood group antibodies identified in Serum or Plasma Laboratory test result Normal (applies to non-numeric results) [facility]) ID Date Data Source [id number] 10/10/2019 02:04:00 PM EST [facility]) Name Value Range Interpretation Code Description Data Skyla rce(s) Supporting Document(s) Prothrombin Time 14.6 s 11.8-14.0 Above high normal M [facility] ([facility]) Partial Thromboplastin Time 29.7 s 25.0-38.4 Norm al (applies to non-numeric results) [facility] ([facility]) Inr 1.17 Normal (applies to non-numeric resul ts) [facility]) THERAPUTIC HUMAN INR VALUES INDICATIONS NORMAL RANGES PROPHYLAXIS/TREATMENT OF: VENOUS THROMBOSIS 2.0-3.0 PULMONARY EMBOLISM 2.0-3.0 PREVENTION OF SYSTEMIC EMBOLISM FROM: TISSUE HEART VALVES 2.0-3.0 ACUTE MYOCARDIAL INFARCTION 2.0-3.0 VALVULAR HEART DISEASE 2.0-3.0 ATRIAL FIBRILLATION 2.0-3.0 MECHANICAL VALVES(HIGH RISK) 2.5-3.5 RECURRENT MYOCARDIAL INFARCTION 2.5-3.5 ID Date Data Source [id number] 10/10/2019 02:04:00 PM EST [facility] ([facility]) Name Value Range Interpretation Code Description Data Skyla rce(s) Supporting Document(s) Blood Type Laboratory test result Normal (applies to non-n umeric results) [facility] ([facility]) Blood group antibody screen [Presence] in Serum or Prasad sma Laboratory test result Normal (applies to non-numeric results) [facility]) ID Date Data Source [id number] 10/10/2019 02:04:00 PM EST [facility] ([facility]) Name Value Range Interpretation Code Description Data Skyla rce(s) Supporting Document(s) Glomerular Filtration Rate Laboratory test result Normal (applies to non- numeric results) [facility]) <content>Units are mL/min/1.73 m2</content>
<content></content>
<content>Chronic Kidney Disease Staging per NKF:</content>
<content></content>
<content>Stage I & II GFR >=60 Normal to Mildly Decreased</content>
<content>Stage III GFR 30- 59 Moderately Decreased</content>
<content>Stage IV GFR 15-29 Severely Decreased</content>
<content>Stage V GFR <15 Very Little GFR Left</content>
<content>ESRD GFR <15 on COMMUTER TRAIN OPERATOR</content>
<content></content> Creatinine For GFR 0.83 mg/dL 0.55-1.30 Normal (applies to non -numeric results) [facility] ([facility]) ID Date Data Source [id number] 10/10/2019 02:04:00 PM EST [facility] ([facility]) Name Value Range Interpretation Code Description Data Skyla rce(s) Supporting Document(s) Urea nitrogen [Mass/volume] in Serum or Plasma 17 mg/dL 7 -18 Normal (applies to non-numeric results) [facility] ([facility]) ID Date Data Source [id number] 10/10/2019 02:04:00 PM EST [facility] ([facility]) Name Value Range Interpretation Code Description Data Skyla rce(s) Supporting Document(s) White Blood Count 4.0 10 4.0-10.0 Normal (applies to non-numeri c results) [facility] ([facility]) Red Blood Count 4.00 10 4.00-5.40 Normal (applies to non-numeric results) [facility] ([facility]) Mean Corpuscular Volume 90.3 fl 80.0-96.0 Normal ( applies to non-numeric results) [facility] ([facility]) Hemoglobin 10.1 g/dL 12.0-15.5 Below low normal [facility] ( [facility]) Hematocrit 36.1 % 36.0-47.0 Normal (applies to non-numeric resul ts) [facility] ([facility]) Red Cell Distribution Width 18.3 % 11.5-14.5 Above high normal [facility] ([facility]) Mean Corpuscular Hemoglobin 25.3 pg 27.0-33.0 Below low normal [facility] ([facility]) Mean Corpuscular HGB Conc 28.0 g/dL 32.0-36.5 Below low normal [facility] ([facility]) Platelet Count, Automated 85 10 150-450 Below low normal [facility] ([facility]) Lymph % 26.1 % 24.0-44.0 Normal (applies to non-numeric resul ts) [facility] ([facility]) Neutrophils % 63.6 % 36.0-66.0 Normal (applies to non-numeric re sults) [facility] ([facility]) [place] % 5.5 % 0.0-5.0 Above high normal [facility] ([facility]) Baso % 0.5 % 0.0-1.0 Normal (applies to non-numeric resul ts) [facility] ([facility]) Nucleated Red Blood Cell % 0.0 % 0-0 Normal (applies to n on-numeric results) [facility] ([facility]) Eos % 4.0 % 0.0-3.0 Above high normal [facility] ([facility]) Immature Granulocyte % 0.3 % 0-3.0 Normal (applies to non-n umeric results) [facility] ([facility]) Neutrophils # 2.5 10 1.5-8.5 Normal (applies to non-numeric re sults) [facility] ([facility]) [place] # 0.2 10 0.0-0.8 Normal (applies to non-numeric resul ts) [facility] ([facility]) Lymph # 1.0 10 1.5-5.0 Below low normal [facility] ( [facility]) Baso # 0.0 10 0.0-0.2 Normal (applies to non-numeric resul ts) [facility] ([facility]) Eos # 0.2 10 0.0-0.5 Normal (applies to non-numeric resul ts) [facility] ([facility]) Procedure Social History Code Duration Value Status Description Data Source(s ) Smoking 09/10/2020 12:00:00 AM EST Never Smoker completed Never S moker eCW1 ([facility]) Smoking 09/10/2020 12:00:00 AM EST Never Smoker completed Never S moker eCW1 ([facility]) Smoking 08/21/2020 12:00:00 AM EST Never Smoker completed Never S moker eCW1 ([facility]) Smoking 08/21/2020 12:00:00 AM EST Never Smoker completed Never S moker eCW1 ([facility]) Smoking 08/21/2020 12:00:00 AM EST Never Smoker completed Never S moker eCW1 ([facility]) Smoking 08/21/2020 12:00:00 AM EST Never Smoker completed Never S moker eCW1 ([facility]) Smoking 07/09/2020 12:00:00 AM EDT Never Smoker completed Never S moker eCW1 ([facility]) Smoking 07/09/2020 12:00:00 AM EDT Never Smoker completed Never S moker eCW1 ([facility]) Smoking 07/09/2020 12:00:00 AM EDT Never Smoker completed Never S moker eCW1 ([facility]) Smoking 07/09/2020 12:00:00 AM EDT Never Smoker completed Never S moker eCW1 ([facility]) Smoking 04/02/2020 12:00:00 AM EDT Patient has never smoked co mpleted Patient has never smoked [facility] ([facility]) Smoking 03/21/2020 12:00:00 AM EDT Never Smoker completed Never S moker eCW1 ([facility]) Smoking 03/21/2020 12:00:00 AM EDT Never Smoker completed Never S moker eCW1 ([facility]) Smoking 03/21/2020 12:00:00 AM EDT Never Smoker completed Never S moker eCW1 ([facility]) Smoking 02/15/2020 12:00:00 AM EDT Never Smoker completed Never S moker eCW1 ([facility]) Smoking 02/15/2020 12:00:00 AM EDT Never Smoker completed Never S moker eCW1 ([facility]) Vital Signs ID Date Data Source [id number] Name Value Range Interpretation Code Description Data Source(s) Diastolic blood pressure 68 mm[Hg] 68 mm[Hg] eCW1 ([facility]) Systolic blood pressure 110 mm[Hg] 110 mm[Hg] e CW1 ([facility]) Body temperature 96.6 [degF] 96.6 [degF] eCW1 ( [facility]) Respiratory rate 20 /min 20 /min eCW1 ([facility]) Heart rate 73 /min 73 /min [facility] Body mass index (BMI) [Ratio] 64.53 kg/m2 64.53 kg/m2 W1 ([facility]) Body height 64 [in_i] 64 [in_i] eCW[facility] Body weight 376 [lb_av] 376 [lb_av] eCW1 ([facility]) Diastolic blood pressure 78 mm[Hg] 78 mm[Hg] eCW1 ([facility]) Systolic blood pressure 130 mm[Hg] 130 mm[Hg] e CW1 ([facility]) Body temperature 96.3 [degF] 96.3 [degF] eCW1 ( [facility]) Respiratory rate 20 /min 20 /min eCW1 ([facility]) Heart rate 99 /min 99 /min eCW1 [facility] Body mass index (BMI) [Ratio] 62.82 kg/m2 62.82 kg/m2 eCW1 ([facility]) Body height 64 [in_i] 64 [in_i] eCW1 [facility] Body weight 366 [lb_av] 366 [lb_av] [facility] [facility]) Diastolic blood pressure 76 mm[Hg] 76 mm[Hg] eCW1 ([facility]) Systolic blood pressure 130 mm[Hg] 130 mm[Hg] e CW1 ([facility]) Body temperature 96.9 [degF] 96.9 [degF] eCW1 ( [facility]) Respiratory rate 20 /min 20 /min eCW1 ([facility]) Heart rate 67 /min 67 /min eCW1 [facility] Body mass index (BMI) [Ratio] 61.10 kg/m2 61.10 kg/m2 eCW1 ([facility]) Body height 64 [in_i] 64 [in_i] eCW1 ([facility]) Body weight 356 [lb_av] 356 [lb_av] eCW1 ([facility]) Body weight 149.688 kg 149.688 kg [facility] ([facility]) Body mass index (BMI) [Ratio] 56.6 kg/m2 56.6 k g/m2 [facility] ([facility]) Body weight 330.00 [lb_av] 330.00 [lb_av] MEDEN T ([facility]) Body height 64 [in_i] 64 [in_i] [facility]) 5'4" Oxygen saturation in Arterial blood by Pulse oximetry 89 % 89 % [facility] ([facility]) 96 2L Heart rate 60 /min 60 /min [facility] ([facility]) Diastolic blood pressure 66 mm[Hg] 66 mm[Hg] [facility]) Systolic blood pressure 108 mm[Hg] 108 mm[Hg] M EDENT ([facility]) Body mass index (BMI) [Ratio] 56.6 kg/m2 56.6 k g/m2 [facility]) Body height 64 [in_i] 64 [in_i] [facility] 5'4" Body weight 330.00 [lb_av] 330.00 [lb_av] MEDEN T ([facility]) Diastolic blood pressure 68 mm[Hg] 68 mm[Hg] MEDENT ([facility]) sitting, large cuff Systolic blood pressure 126 mm[Hg] 126 mm[Hg] M EDENT ([facility]) sitting, large cuff Respiratory rate 16 /min 16 /min MEDENT ( [facility]) Heart rate 72 /min 72 /min [facility] ([facility] Regular Diastolic blood pressure 76 mm[Hg] 76 mm[Hg] eCW1 ([facility]) Systolic blood pressure 128 mm[Hg] 128 mm[Hg] e CW1 ([facility]) Body temperature 97.1 [degF] 97.1 [degF] eCW1 ( [facility]) Respiratory rate 20 /min 20 /min eCW1 ([facility]) Heart rate 66 /min 66 /min eCW1 ([facility] Body mass index (BMI) [Ratio] 60.76 kg/m2 60.76 kg/m2 eCW1 ([facility]) Body height 64 [in_i] 64 [in_i] eCW1 ([facility]) Body weight 354.0 [lb_av] 354.0 [lb_av] eCW1 ([facility]) Body weight 162.842 kg 162.842 kg MEDENT ([facility], ) Body mass index (BMI) [Ratio] 61.6 kg/m2 61.6 k g/m2 MED[facility] ([facility], ) Body weight 359.00 [lb_av] 359.00 [lb_av] MEDEN T ([facility], ) Body height 64 [in_i] 64 [in_i] MEDENT ([facility], ) 5'4" Diastolic blood pressure 74 mm[Hg] 74 mm[Hg] MEDENT ([facility], ) Systolic blood pressure 132 mm[Hg] 132 mm[Hg] M EDENT ([facility], ) Diastolic blood pressure 70 mm[Hg] 70 mm[Hg] eCW1 ([facility]) Systolic blood pressure 136 mm[Hg] 136 mm[Hg] e CW1 ([facility]) Body temperature 96.8 [degF] 96.8 [degF] eCW1 ( [facility]) Respiratory rate 20 /min 20 /min eCW1 ([facility]) Heart rate 75 /min 75 /min eCW1 [facility] Body mass index (BMI) [Ratio] 61.10 kg/m2 61.10 kg/m2 W1 ([facility]) Body height 64 [in_i] 64 [in_i] eCW1 ([facility]) Body weight 356 [lb_av] 356 [lb_av] eCW1 ([facility]) Diastolic blood pressure 72 mm[Hg] 72 mm[Hg] eCW1 ([facility]) Systolic blood pressure 132 mm[Hg] 132 mm[Hg] e CW1 ([facility]) Body temperature 96.5 [degF] 96.5 [degF] eCW1 ( [facility]) Respiratory rate 20 /min 20 /min eCW1 ([facility]) Heart rate 70 /min 70 /min eCW1 ([facility] Body mass index (BMI) [Ratio] 59.21 kg/m2 59.21 kg/m2 eCW1 ([facility]) Body height 64 [in_us] 64 [in_us] eCW1 ([facility]) Body weight Measured 345 [lb_av] 345 [lb_av] eC W1 ([facility]) Body weight 155.585 kg 155.585 kg [facility] ([facility], ) Body mass index (BMI) [Ratio] 58.9 kg/m2 58.9 k g/m2 [facility] ([facility], ) Body weight 343.00 [lb_av] 343.00 [lb_av] MEDEN T ([facility], ) Body height 64 [in_i] 64 [in_i] [facility] ([facility]) 5'4" Diastolic blood pressure 78 mm[Hg] 78 mm[Hg] [facility] ([facility]) Systolic blood pressure 126 mm[Hg] 126 mm[Hg] M EDENT ([facility], ) Body weight 148.327 kg 148.327 kg [facility] ([facility]) Body mass index (BMI) [Ratio] 56.1 kg/m2 56.1 k g/m2 [facility] ([facility]) Body weight 327.00 [lb_av] 327.00 [lb_av] MEDEN T ([facility]) Body height 64 [in_i] 64 [in_i] [facility] ([facility]) 5'4" Body temperature 96.8 [degF] 96.8 [degF] [facility] ([facility]) Diastolic blood pressure 76 mm[Hg] 76 mm[Hg] [facility] ([facility]) Systolic blood pressure 113 mm[Hg] 113 mm[Hg] M EDENT ([facility], ) Diastolic blood pressure 74 mm[Hg] 74 mm[Hg] eCW1 ([facility]) Systolic blood pressure 136 mm[Hg] 136 mm[Hg] e CW1 ([facility]) Body temperature 98.2 [degF] 98.2 [degF] eCW1 ( [facility]) Respiratory rate 22 /min 22 /min eCW1 ([facility]) Heart rate 71 /min 71 /min eCW1 [facility] Body mass index (BMI) [Ratio] 58.87 kg/m2 58.87 kg/m2 eCW1 ([facility]) Body height 64 [in_us] 64 [in_us] eCW1 ([facility]) Body weight Measured 343 [lb_av] 343 [lb_av] eC W1 ([facility]) Diastolic blood pressure 72 mm[Hg] 72 mm[Hg] eCW1 ([facility]) Systolic blood pressure 124 mm[Hg] 124 mm[Hg] e CW1 ([facility]) Body temperature 98.0 [degF] 98.0 [degF] eCW1 ( [facility]) Respiratory rate 22 /min 22 /min eCW1 ([facility]) Heart rate 94 /min 94 /min eCW1 [facility] Body mass index (BMI) [Ratio] 57.50 kg/m2 57.50 kg/m2 eCW1 ([facility]) Body height 64 [in_us] 64 [in_us] eCW1 ([facility]) Body weight Measured 335.0 [lb_av] 335.0 [lb_av ] eCW1 ([facility]) Body weight 146.059 kg 146.059 [facility] Body mass index (BMI) [Ratio] 55.3 kg/m2 55.3 k g/m2 [facility] ([facility], ) Body weight 322.00 [lb_av] 322.00 [lb_av] MEDEN T ([facility], ) Body height 64 [in_i] 64 [in_i] MED[facility] ([facility], ) 5'4" Diastolic blood pressure 66 mm[Hg] 66 mm[Hg] MED[facility] ([facility], ) Systolic blood pressure 112 mm[Hg] 112 mm[Hg] M EDENT ([facility], ) Body mass index (BMI) [Ratio] 54.1 kg/m2 54.1 k g/m2 [facility] ([facility] ) Body weight 315.00 [lb_av] 315.00 [lb_av] MEDEN T ([facility]) Body height 64 [in_i] 64 [in_i] MEDENT ([facility]) 5'4" Patient Treatment Plan of Care Planned Activity Planned Date Details Description Data Source (s) Cephalexin 500 MG Oral Capsule [Keflex] 09/10/2020 12:00:00 AM EST eCW1 ([facility]) Cephalexin 500 MG Oral Capsule [Keflex] 09/10/2020 12:00:00 AM EST eCW1 ([facility]) apixaban 2.5 MG Oral Tablet [Eliquis] 08/12/2020 12:00:00 AM EST eCW1 ([facility]) apixaban 2.5 MG Oral Tablet [Eliquis] 08/12/2020 12:00:00 AM EST eCW1 ([facility]) apixaban 2.5 MG Oral Tablet [Eliquis] 08/12/2020 12:00:00 AM EST eCW1 ([facility]) apixaban 2.5 MG Oral Tablet [Eliquis] 08/12/2020 12:00:00 AM EST eCW1 ([facility]) apixaban 2.5 MG Oral Tablet [Eliquis] 08/12/2020 12:00:00 AM EST eCW1 ([facility]) apixaban 2.5 MG Oral Tablet [Eliquis] 08/12/2020 12:00:00 AM EST eCW1 ([facility]) Levofloxacin 750 MG Oral Tablet 07/09/2020 12:00:00 AM EDT eCW1 ([facility]) Levofloxacin 750 MG Oral Tablet 07/09/2020 12:00:00 AM EDT eCW1 ([facility]) gabapentin 800 MG Oral Tablet 02/19/2020 12:00:00 AM EDT eCW1 ([facility]) Bisoprolol Fumarate 5 MG Oral Tablet 02/19/2020 12:00:00 AM EDT eCW1 ([facility]) Fluticasone Propionate 50 MCG/ACT 12/07/2019 12:00:00 AM EDT eCW1 ([facility]) Fluticasone Propionate 50 MCG/ACT 12/07/2019 12:00:00 AM EDT eCW1 ([facility]) cefpodoxime 200 MG Oral Tablet 08/24/2019 12:00:00 AM EST eCW1 ([facility]) Albuterol-Ipratropium 2.5-0.5 MG/3ML 08/23/2019 12:00:00 AM EST eCW1 ([facility]) Nebulizer/Tubing/Mouthpiece - 08/23/2019 12:00:00 AM EST eCW1 ([facility]) Nebulizer/Tubing/Mouthpiece - 08/23/2019 12:00:00 AM EST eCW1 ([facility]) Albuterol-Ipratropium 2.5-0.5 MG/3ML 08/23/2019 12:00:00 AM EST eCW1 ([facility]) Nebulizer/Tubing/Mouthpiece - 08/23/2019 12:00:00 AM EST eCW1 ([facility]) Prednisone 20 MG Oral Tablet 08/23/2019 12:00:00 AM EST eCW1 ([facility]) doxycycline hyclate 100 MG Oral Capsule 08/23/2019 12:00:00 AM EST eCW1 ([facility]) Albuterol-Ipratropium 2.5-0.5 MG/3ML 08/23/2019 12:00:00 AM EST eCW1 ([facility]) Spironolactone 25 MG Oral Tablet eCW1 ([facility])
[2020-10-01 21:13] LABS: BASO % 0.5 % (0.0-1.0); EOS # 0.1 10^3/uL (0.0-0.5); EOS % 6.3 % (0.0-3.0); HEMATOCRIT 31.7 % (36.0-47.0); HEMOGLOBIN 9.7 g/dl (12.0-15.5); LYMPH # 0.4 10^3/uL (1.5-5.0); LYMPH % 21.9 % (24.0-44.0); MEAN CORPUSCULAR HEMOGLOBIN 31.4 pg (27.0-33.0); MEAN CORPUSCULAR HGB CONC 30.6 g/dl (32.0-36.5); MEAN CORPUSCULAR VOLUME 102.6 fl (80.0-96.0); MONO # 0.1 10^3/uL (0.0-0.8); MONO % 6.3 % (0.0-5.0); NEUTROPHILS # 1.2 10^3/uL (1.5-8.5); NEUTROPHILS % 64.5 % (36.0-66.0); RED BLOOD COUNT 3.09 10^6/uL (4.00-5.40); WHITE BLOOD COUNT 1.9 10^3/uL (4.0-10.0)
--- OUTSIDE RECORDS SUMMARY | 2020-10-01 21:18 | CCD ---
Author Author [facility] Organization [facility] Address Unknown Phone Unavailable Care Team Providers Care Real Estate Teacher Name Role Phone Renetta Garsia PA Unavailable [...] Judi PA Unavailable Unavailable QUIROZ, H DEON PRODUCTION TOOL ENGINEER Unavailable Unavailable QUIROZ, H DEON PRODUCTION TOOL ENGINEER Unavailable Unavailable QUIROZ, H DEON PRODUCTION TOOL ENGINEER Unavailable Unavailable QUIROZ, H DEON PRODUCTION TOOL ENGINEER Unavailable Unavailable QUIROZ, H DEON PRODUCTION TOOL ENGINEER Unavailable Unavailable QUIROZ, H DEON PRODUCTION TOOL ENGINEER Unavailable Unavailable QUIROZ, H DEON PRODUCTION TOOL ENGINEER Unavailable Unavailable QUIROZ, H DEON PRODUCTION TOOL ENGINEER Unavailable Unavailable QUIROZ, H DEON PRODUCTION TOOL ENGINEER Unavailable Unavailable QUIROZ, H DEON PRODUCTION TOOL ENGINEER Unavailable Unavailable QUIROZ, H DEON PRODUCTION TOOL ENGINEER Unavailable Unavailable QUIROZ, H DEON PRODUCTION TOOL ENGINEER Unavailable Unavailable QUIROZ, H DEON PRODUCTION TOOL ENGINEER Unavailable Unavailable QUIROZ, H DEON PRODUCTION TOOL ENGINEER Unavailable Unavailable QUIROZ, H DEON PRODUCTION TOOL ENGINEER Unavailable Unavailable QUIROZ, H DEON PRODUCTION TOOL ENGINEER Unavailable Unavailable QUIROZ, H DEON PRODUCTION TOOL ENGINEER Unavailable Unavailable QUIROZ, H DEON PRODUCTION TOOL ENGINEER Unavailable Unavailable QUIROZ, H DEON PRODUCTION TOOL ENGINEER Unavailable Unavailable QUIROZ, H DEON PRODUCTION TOOL ENGINEER Unavailable Unavailable QUIROZ, H DEON PRODUCTION TOOL ENGINEER Unavailable Unavailable QUIROZ, H DEON PRODUCTION TOOL ENGINEER Unavailable Unavailable QUIROZ, H DEON PRODUCTION TOOL ENGINEER Unavailable Unavailable QUIROZ, H DEON PRODUCTION TOOL ENGINEER Unavailable Unavailable QUIROZ, H DEON PRODUCTION TOOL ENGINEER Unavailable Unavailable QUIROZ, H DEON PRODUCTION TOOL ENGINEER Unavailable Unavailable QUIROZ, H DEON PRODUCTION TOOL ENGINEER Unavailable Unavailable QUIROZ, H DEON PRODUCTION TOOL ENGINEER Unavailable Unavailable QUIROZ, H DEON PRODUCTION TOOL ENGINEER Unavailable Unavailable QUIROZ, H DEON PRODUCTION TOOL ENGINEER Unavailable Unavailable QUIROZ, H DEON PRODUCTION TOOL ENGINEER Unavailable Unavailable QUIROZ, H DEON PRODUCTION TOOL ENGINEER Unavailable Unavailable QUIROZ, H DEON PRODUCTION TOOL ENGINEER Unavailable Unavailable QUIROZ, H DEON PRODUCTION TOOL ENGINEER Unavailable Unavailable QUIROZ, H DEON PRODUCTION TOOL ENGINEER Unavailable Unavailable QUIROZ, H DEON PRODUCTION TOOL ENGINEER Unavailable Unavailable QUIORZ, H DEON PRODUCTION TOOL ENGINEER Unavailable Unavailable QUIROZ, H DEON PRODUCTION TOOL ENGINEER Unavailable Unavailable QUIROZ, H DEON PRODUCTION TOOL ENGINEER Unavailable Unavailable QUIROZ, H DEON PRODUCTION TOOL ENGINEER Unavailable Unavailable QUIROZ, H DEON PRODUCTION TOOL ENGINEER Unavailable Unavailable QUIROZ, H DEON PRODUCTION TOOL ENGINEER Unavailable Unavailable QUIROZ, H DEON PRODUCTION TOOL ENGINEER Unavailable Unavailable QUIROZ, H DEON PRODUCTION TOOL ENGINEER Unavailable Unavailable QUIROZ, H DEON PRODUCTION TOOL ENGINEER Unavailable Unavailable QUIROZ, H DEON PRODUCTION TOOL ENGINEER Unavailable Unavailable QUIROZ, H DEON PRODUCTION TOOL ENGINEER Unavailable Unavailable QUIROZ, H DEON PRODUCTION TOOL ENGINEER Unavailable Unavailable QUIROZ, H DEON PRODUCTION TOOL ENGINEER Unavailable Unavailable QUIROZ, H DEON PRODUCTION TOOL ENGINEER Unavailable Unavailable QUIROZ, H DEON PRODUCTION TOOL ENGINEER Unavailable Unavailable QUIROZ, H DEON PRODUCTION TOOL ENGINEER Unavailable Unavailable QUIROZ, H DEON PRODUCTION TOOL ENGINEER Unavailable Unavailable QUIROZ, H DEON PRODUCTION TOOL ENGINEER Unavailable Unavailable QUIROZ, H DEON PRODUCTION TOOL ENGINEER Unavailable Unavailable Hecj, Tavon Nielson MD Unavailable [...] is protected by Article 27-F of the [facility] Public Health law. If you continue you may have access to information: Regarding HIV / AIDS; Provided by facilities licensed or operated by the [facility] Office of Mental Health; or Provided by the [facility] Office for People With Developmental Disabilities. If such information is present, then the following [facility] mandated warning applies: This information has been [...] law may result in a fine or halfway sentence or both. A general authorization for the release of medical or other information is NOT sufficient authorization for further disc losure. Allergies and Adverse Reactions Type Description Substance Reaction Status Data Source(s ) codeine Codeine Sulfate Codeine severe chest pain Active e CW1 ([facility]) tetracycline Tetracycline HCl Tetracycline turned teeth yellow Activ e eCW1 ([facility]) Drug allergy IBU Ibuprofen severe joint and muscle pain Acti ve eCW1 ([facility]) Drug allergy Lyrica pregabalin chest pain and irregular heartbeat Active eCW1 ([facility]) Drug allergy Narcan Naloxone seizures and highly combative Act renny eCW1 ([facility]) Drug allergy Augmentin amoxicillin / clavulanate Diarrhea, vomiting Active eCW1 ([facility]) Drug allergy Dilaudid Hydromorphone itching Active eCW1 ([facility]) Erythromycin Erythromycin Erythromycin Vomiting, Diarrhea Active eCW1 ([facility]) seasonal,dust,mold,ragweed,chestnut blossoms, cut g seasonal,dust,mold,ragweed,chestnut blossoms, cut g seasonal,dust,mold,ragweed,chestnut blossoms, cut g Dyspnea Active eCW1 ([facility]) seasonal,dust,mold,ragweed,chestnut blossoms, cut g seasonal,dust,mold,ragweed,chestnut blossoms, cut g seasonal,dust,mold,ragweed,chestnut blossoms, cut g Dyspnea Active eCW1 ([facility]) Codeine Sulfate Codeine Sulfate Codeine Sulfate severe chest pain Ac tive eCW1 ([facility]) seasonal,dust,mold,ragweed,chestnut blossoms, cut g seasonal,dust,mold,ragweed,chestnut blossoms, cut g seasonal,dust,mold,ragweed,chestnut blossoms, cut g Dyspnea Active eCW1 ([facility]) Family History Family Member Name Family Member Gender Family Member Status Date o f Status Description Data Source(s) Unknown Male Problem MEDENT ([facility]) Encounters Encounter Providers Location Date Indications Data Source(s ) [place] [address] [facility] [address] 09/19/2020 12:00:00 AM EST eCW1 ([facility]) [place] [address] [facility] [address] 09/10/2020 12:00:00 AM EST eCW1 ([facility]) [place] [address] [facility] [address] 09/09/2020 12:00:00 AM EST eCW1 ([facility]) [place] [address] [facility] [address] 09/02/2020 12:00:00 AM EST eCW1 ([facility]) [place] [address] [facility] [address] 09/01/2020 12:00:00 AM EST eCW1 ([facility]) [place] [address] [facility] [address] 08/21/2020 12:00:00 AM EST eCW1 ([facility]) [place] [address] [facility] [address] 08/12/2020 12:00:00 AM EST eCW1 ([facility]) [place] [address] [facility] [address] 08/04/2020 12:00:00 AM EST eCW1 ([facility]) [place] [address] [facility] [address] 07/09/2020 12:00:00 AM EDT eCW1 [facility] [place] [address] [facility] [address] 07/08/2020 12:00:00 AM EDT eCW1 ([facility]) [place] [address] [facility] [address] 06/24/2020 12:00:00 AM EDT eCW1 ([facility]) Outpatient Attender: Judi SMITH Main Office 04/02/2020 10:45:00 AM EDT MEDENT ([facility]) [place] [address] [facility] [address] 03/24/2020 12:00:00 AM EDT eCW1 ([facility]) [place] [address] [facility] [address] 03/21/2020 12:00:00 AM EDT eCW1 ([facility]) Outpatient Referrer: DEON QUIROZ NP 02/28/2020 06:12:00 AM E DT [facility] [place] [address] [facility] [address] 02/20/2020 12:00:00 AM EDT eCW1 ([facility]) Outpatient [address] [place] [address], [place] [address] 02/15/2020 12:00:00 AM EDT eCW1 ([facility]) [address] [place] [address] 02/07/2020 12:00:00 AM EDT eCW1 ([facility]) Outpatient Attender: FRANCISCO Mora/Omar/Kaden anderson/Scott 01/17/2020 03:40:00 PM EDT MEDENT ([facility]) [address] [address] 01/15/2020 12:00:00 AM EDT eCW1 ([facility]) [address] [address] 01/07/2020 12:00:00 AM EDT eCW1 ([facility]) [address] [address] 01/03/2020 12:00:00 AM EDT eCW1 ([facility]) Outpatient Referrer: DEON QUIROZ NP 12/13/2019 05:53:00 AM E DT [facility] Outpatient Attender: Abbi Mora/Omar/Dmitriy/Uzma vital 12/11/2019 11:00:00 AM EDT MEDENT ([facility]) [address] [address] 12/07/2019 12:00:00 AM EDT eCW1 ([facility]) [address] [place] [address] 11/26/2019 12:00:00 AM EDT eCW1 ([facility]) [address] [address] 11/23/2019 12:00:00 AM EDT eCW1 ([facility]) [facility] [address] [place] [address], [place] [address] 11/19/2019 12:00:00 AM EDT eCW1 ([facility]) [facility] [address] [facility] [address] 11/07/2019 12:00:00 AM EST eCW1 ([facility]) [facility] [address] [place] [address], [place] [address] 11/07/2019 12:00:00 AM EST eCW1 ([facility]) Outpatient Referrer: DEON QUIROZ NP 11/06/2019 02:23:[address] [facility] [address] [place] [address], [place] [address] 11/06/2019 12:00:00 AM EST eCW1 ([facility]) [facility] [address] [place] [address], [place] [address] 10/29/2019 12:00:00 AM EST eCW1 ([facility]) [address] [address] 10/08/2019 12:00:00 AM EST eCW1 ([facility]) Outpatient Referrer: DEON QUIROZ NP 10/04/2019 01:37:[address] [facility] Outpatient Referrer: DEON QUIROZ NP 09/28/2019 05:46:[address] [facility] [address] [address] 09/26/2019 12:00:00 AM EST eCW1 ([facility]) [address] [address] 09/21/2019 12:00:00 AM EST eCW1 ([facility]) [facility] [address] [place] [address], [place] [address] 09/19/2019 12:00:00 AM EST eCW1 ([facility]) [address] [address] 09/13/2019 12:00:00 AM EST eCW1 ([facility]) Outpatient Referrer: DEON QUIROZ NP 08/28/2019 09:07:[address] [facility] [address] [address] 08/27/2019 12:00:00 AM EST eCW1 ([facility]) [address] [address] 08/24/2019 12:00:00 AM EST eCW1 ([facility]) [address] [address] 08/23/2019 12:00:00 AM EST eCW1 ([facility]) Outpatient Attender: FRANCISCO Mora/Omar/Kaden anderson/Scott 08/08/2019 09:50:00 AM EST [facility] ([facility]) [address] [address] 08/08/2019 12:00:00 AM EST eCW1 ([facility]) [address] [address] 08/06/2019 12:00:00 AM EST eCW1 ([facility]) Outpatient Attender: Naga Robles MD Physical Therapy 12:00:00 PM EST MEDENT ([facility]) [address] [address] 08/03/2019 12:00:00 AM EST eCW1 ([facility]) [address] [address] 08/03/2019 12:00:00 AM EST eCW1 ([facility]) Immunizations Vaccine Date Status Description Data Source(s) influenza, recombinant, quadrIvalent,injectable, prese rvative free 07/09/2020 11:09:00 AM EDT completed eCW1 ([facility]) influenza, recombinant, quadrIvalent,injectable, prese rvative free 07/09/2020 11:09:00 AM EDT completed eCW1 ([facility]) influenza, recombinant, quadrIvalent,injectable, prese rvative free 07/09/2020 11:09:00 AM EDT completed eCW1 ([facility]) influenza, recombinant, quadrIvalent,injectable, prese rvative free 07/09/2020 11:09:00 AM EDT completed eCW1 ([facility]) influenza, recombinant, quadrIvalent,injectable, prese rvative free 07/09/2020 11:09:00 AM EDT completed eCW1 ([facility]) influenza, recombinant, quadrIvalent,injectable, prese rvative free 07/09/2020 11:09:00 AM EDT completed eCW1 ([facility]) influenza, recombinant, quadrIvalent,injectable, prese rvative free 07/09/2020 11:09:00 AM EDT completed eCW1 ([facility]) influenza, recombinant, quadrIvalent,injectable, prese rvative free 07/09/2020 11:09:00 AM EDT completed eCW1 ([facility]) influenza, recombinant, quadrIvalent,injectable, prese rvative free 07/09/2020 11:09:00 AM EDT completed eCW1 ([facility]) influenza, recombinant, quadrIvalent,injectable, prese rvative free 07/09/2020 11:09:00 AM EDT completed eCW1 ([facility]) Medications Medication Brand Name Start Date Product Form Dose Route Admi nistrative Instructions Pharmacy Instructions Status Indications Reaction Description Data Source(s) Cephalexin 500 MG Oral Capsule [Keflex] Keflex 500 MG Keflex 500 MG 09/10/2020 12:00:00 AM EST 1.0 {capsule} active K eflex 500 MG eCW1 ([facility]) Cephalexin 500 MG Oral Capsule [Keflex] Keflex 500 MG Keflex 500 MG 09/10/2020 12:00:00 AM EST 1.0 {capsule} active K eflex 500 MG eCW1 ([facility]) apixaban 2.5 MG Oral Tablet [Eliquis] Eliquis 2.5 MG Eliquis 2.5 MG 08/12/2020 12:00:00 AM EST active Eliquis 2.5 MG eCW1 ([facility]) apixaban 2.5 MG Oral Tablet [Eliquis] Eliquis 2.5 MG Eliquis 2.5 MG 08/12/2020 12:00:00 AM EST active Eliquis 2.5 MG eCW1 ([facility]) apixaban 2.5 MG Oral Tablet [Eliquis] Eliquis 2.5 MG Eliquis 2.5 MG 08/12/2020 12:00:00 AM EST active Eliquis 2.5 MG eCW1 ([facility]) apixaban 2.5 MG Oral Tablet [Eliquis] Eliquis 2.5 MG Eliquis 2.5 MG 08/12/2020 12:00:00 AM EST active Eliquis 2.5 MG eCW1 ([facility]) apixaban 2.5 MG Oral Tablet [Eliquis] Eliquis 2.5 MG Eliquis 2.5 MG 08/12/2020 12:00:00 AM EST active Eliquis 2.5 MG eCW1 ([facility]) apixaban 2.5 MG Oral Tablet [Eliquis] Eliquis 2.5 MG Eliquis 2.5 MG 08/12/2020 12:00:00 AM EST active Eliquis 2.5 MG eCW1 ([facility]) apixaban 2.5 MG Oral Tablet [Eliquis] Eliquis 2.5 MG Eliquis 2.5 MG 08/12/2020 12:00:00 AM EST active Eliquis 2.5 MG eCW1 ([facility]) apixaban 2.5 MG Oral Tablet [Eliquis] Eliquis 2.5 MG Eliquis 2.5 MG 08/12/2020 12:00:00 AM EST active Eliquis 2.5 MG eCW1 ([facility]) Loperamide Hydrochloride 2 MG Oral Capsule [Imodium] I modium A-D 2 MG Imodium A- D 2 MG 08/01/2020 12:00:00 AM EST 1.0 {capsule_as_needed} active Imodium A-D 2 MG eCW1 ([facility]) Loperamide Hydrochloride 2 MG Oral Capsule [Imodium] I modium A-D 2 MG Imodium A- D 2 MG 08/01/2020 12:00:00 AM EST 1.0 {capsule_as_needed} active Imodium A-D 2 MG eCW1 ([facility]) Loperamide Hydrochloride 2 MG Oral Capsule [Imodium] I modium A-D 2 MG Imodium A- D 2 MG 08/01/2020 12:00:00 AM EST 1.0 {capsule_as_needed} active Imodium A-D 2 MG eCW1 ([facility]) Loperamide Hydrochloride 2 MG Oral Capsule [Imodium] I modium A-D 2 MG Imodium A- D 2 MG 08/01/2020 12:00:00 AM EST 1.0 {capsule_as_needed} active Imodium A-D 2 MG eCW1 ([facility]) Loperamide Hydrochloride 2 MG Oral Capsule [Imodium] I modium A-D 2 MG Imodium A- D 2 MG 08/01/2020 12:00:00 AM EST 1.0 {capsule_as_needed} active Imodium A-D 2 MG eCW1 ([facility]) Loperamide Hydrochloride 2 MG Oral Capsule [Imodium] I modium A-D 2 MG Imodium A- D 2 MG 08/01/2020 12:00:00 AM EST 1.0 {capsule_as_needed} active Imodium A-D 2 MG eCW1 ([facility]) Loperamide Hydrochloride 2 MG Oral Capsule [Imodium] I modium A-D 2 MG Imodium A- D 2 MG 08/01/2020 12:00:00 AM EST 1.0 {capsule_as_needed} active Imodium A-D 2 MG eCW1 ([facility]) Loperamide Hydrochloride 2 MG Oral Capsule [Imodium] I modium A-D 2 MG Imodium A- D 2 MG 08/01/2020 12:00:00 AM EST 1.0 {capsule_as_needed} active Imodium A-D 2 MG eCW1 ([facility]) Levofloxacin 750 MG Oral Tablet Levofloxacin 750 MG 07/09/2020 1 2:00:00 AM EDT 1.0 {tablet} suspended Levofloxa darius 750 MG eCW1 ([facility]) Levofloxacin 750 MG Oral Tablet Levofloxacin 750 MG 07/09/2020 1 2:00:00 AM EDT 1.0 {tablet} active Levofloxaci n 750 MG eCW1 ([facility]) Levofloxacin 750 MG Oral Tablet Levofloxacin 750 MG 07/09/2020 1 2:00:00 AM EDT 1.0 {tablet} active Levofloxaci n 750 MG eCW1 ([facility]) Levofloxacin 750 MG Oral Tablet Levofloxacin 750 MG 07/09/2020 1 2:00:00 AM EDT 1.0 {tablet} active Levofloxaci n 750 MG eCW1 ([facility]) Levofloxacin 750 MG Oral Tablet Levofloxacin 750 MG 07/09/2020 1 2:00:00 AM EDT 1.0 {tablet} active Levofloxaci n 750 MG eCW1 ([facility]) Levofloxacin 750 MG Oral Tablet Levofloxacin 750 MG 07/09/2020 1 2:00:00 AM EDT 1.0 {tablet} active Levofloxaci n 750 MG eCW1 ([facility]) Levofloxacin 750 MG Oral Tablet Levofloxacin 750 MG 07/09/2020 1 2:00:00 AM EDT 1.0 {tablet} active Levofloxaci n 750 MG eCW1 ([facility]) Levofloxacin 750 MG Oral Tablet Levofloxacin 750 MG 07/09/2020 1 2:00:00 AM EDT 1.0 {tablet} active Levofloxaci n 750 MG eCW1 ([facility]) Levofloxacin 750 MG Oral Tablet Levofloxacin 750 MG 07/09/2020 1 2:00:00 AM EDT 1.0 {tablet} suspended Levofloxa darius 750 MG eCW1 ([facility]) Levofloxacin 750 MG Oral Tablet Levofloxacin 750 MG 07/09/2020 1 2:00:00 AM EDT 1.0 {tablet} active Levofloxaci n 750 MG eCW1 ([facility]) Sucralfate 1000 MG Oral Tablet Sucralfate 04/01/2020 12:00:00 AM EDT ORAL active [facility] ([facility]) Vitamin B Complex-C 04/01/2020 12:00:00 AM EDT ORAL active MEDENT ([facility]) Vitamin B 12 1 MG Oral Tablet Vitamin B-12 04/01/2020 12:00:00 AM EDT ORAL active MEDENT ([facility]) Oxygen - Home 04/01/2020 12:00:00 AM EDT acti ve MEDENT ([facility]) Lactulose 667 MG/ML Oral Solution Lactulose 04/01/2020 12:00:00 AM EDT ORAL active MEDENT ([facility]) Bisoprolol Fumarate 5 MG Oral Tablet Bisoprolol Fumarate 12:00:00 AM EDT ORAL active MEDENT ([facility]) Cholecalciferol 10 MCG (400 UNIT) UNK 02/19/2020 12:00:00 AM EDT 1.0 {capsule} active Cholecalciferol 10 MCG ( 400 UNIT) eCW1 ([facility]) Bisoprolol Fumarate 5 MG Oral Tablet Bisoprolol Fumarate 5 M G 02/19/2020 12:00:00 AM EDT 1.0 {tablet} active Bi soprolol Fumarate 5 MG eCW1 ([facility]) Albuterol 0.833 MG/ML / Ipratropium Brom doyle 0.167 MG/ML Inhalant Solution Ipratropium-Albuterol 0.5-2.5 (3) MG/3ML Ipratropium-Albuterol 0.5-2.5 (3) MG/3ML 02/19/2020 12:00:00 AM EDT 3.0 {ml_as_needed} active Ipratropium-Albuterol 0.5-2.5 (3) MG/3ML eCW1 ([facility]) Albuterol 0.833 MG/ML / Ipratropium Brom doyle 0.167 MG/ML Inhalant Solution Ipratropium-Albuterol 0.5-2.5 (3) MG/3ML Ipratropium-Albuterol 0.5-2.5 (3) MG/3ML 02/19/2020 12:00:00 AM EDT 3.0 {ml_as_needed} active Ipratropium-Albuterol 0.5-2.5 (3) MG/3ML eCW1 ([facility]) gabapentin 800 MG Oral Tablet Gabapentin 800 MG Gabapentin 8 00 MG 02/19/2020 12:00:00 AM EDT 1.0 {tablet} active Ga bapentin 800 MG eCW1 ([facility]) Bisoprolol Fumarate 5 MG Oral Tablet Bisoprolol Fumarate 5 M G 02/19/2020 12:00:00 AM EDT 1.0 {tablet} active Bi soprolol Fumarate 5 MG eCW1 ([facility]) Bisoprolol Fumarate 5 MG Oral Tablet Bisoprolol Fumarate 5 M G 02/19/2020 12:00:00 AM EDT 1.0 {tablet} active Bi soprolol Fumarate 5 MG eCW1 ([facility]) gabapentin 800 MG Oral Tablet Gabapentin 800 MG Gabapentin 8 00 MG 02/19/2020 12:00:00 AM EDT 1.0 {tablet} active Ga bapentin 800 MG eCW1 ([facility]) Cholecalciferol 10 MCG (400 UNIT) UNK 02/19/2020 12:00:00 AM EDT 1.0 {capsule} active Cholecalciferol 10 MCG ( 400 UNIT) eCW1 ([facility]) Cholecalciferol 10 MCG (400 UNIT) UNK 02/19/2020 12:00:00 AM EDT 1.0 {capsule} active Cholecalciferol 10 MCG ( 400 UNIT) eCW1 ([facility]) Bisoprolol Fumarate 5 MG Oral Tablet Bisoprolol Fumarate 5 M G 02/19/2020 12:00:00 AM EDT 1.0 {tablet} active Bi soprolol Fumarate 5 MG eCW1 ([facility]) Albuterol 0.833 MG/ML / Ipratropium Brom doyle 0.167 MG/ML Inhalant Solution Ipratropium-Albuterol 0.5-2.5 (3) MG/3ML Ipratropium-Albuterol 0.5-2.5 (3) MG/3ML 02/19/2020 12:00:00 AM EDT 3.0 {ml_as_needed} active Ipratropium-Albuterol 0.5-2.5 (3) MG/3ML eCW1 ([facility]) Bisoprolol Fumarate 5 MG Oral Tablet Bisoprolol Fumarate 5 M G 02/19/2020 12:00:00 AM EDT 1.0 {tablet} active Bi soprolol Fumarate 5 MG eCW1 ([facility]) gabapentin 800 MG Oral Tablet Gabapentin 800 MG Gabapentin 8 00 MG 02/19/2020 12:00:00 AM EDT 1.0 {tablet} active Ga bapentin 800 MG eCW1 ([facility]) Bisoprolol Fumarate 5 MG Oral Tablet Bisoprolol Fumarate 5 M G 02/19/2020 12:00:00 AM EDT 1.0 {tablet} active Bi soprolol Fumarate 5 MG eCW1 ([facility]) Cholecalciferol 10 MCG (400 UNIT) UNK 02/19/2020 12:00:00 AM EDT 1.0 {capsule} active Cholecalciferol 10 MCG ( 400 UNIT) eCW1 ([facility]) Albuterol 0.833 MG/ML / Ipratropium Brom doyle 0.167 MG/ML Inhalant Solution Ipratropium-Albuterol 0.5-2.5 (3) MG/3ML Ipratropium-Albuterol 0.5-2.5 (3) MG/3ML 02/19/2020 12:00:00 AM EDT 3.0 {ml_as_needed} active Ipratropium-Albuterol 0.5-2.5 (3) MG/3ML eCW1 ([facility]) Levofloxacin 500 MG Oral Tablet Levofloxacin 500 MG 02/19/2020 1 2:00:00 AM EDT 1.0 {tablet} active Levofloxaci n 500 MG eCW1 ([facility]) gabapentin 800 MG Oral Tablet Gabapentin 800 MG Gabapentin 8 00 MG 02/19/2020 12:00:00 AM EDT 1.0 {tablet} active Ga bapentin 800 MG eCW1 ([facility]) Albuterol 0.833 MG/ML / Ipratropium Brom doyle 0.167 MG/ML Inhalant Solution Ipratropium-Albuterol 0.5-2.5 (3) MG/3ML Ipratropium-Albuterol 0.5-2.5 (3) MG/3ML 02/19/2020 12:00:00 AM EDT 3.0 {ml_as_needed} active Ipratropium-Albuterol 0.5-2.5 (3) MG/3ML eCW1 ([facility]) Albuterol 0.833 MG/ML / Ipratropium Brom doyle 0.167 MG/ML Inhalant Solution Ipratropium-Albuterol 0.5-2.5 (3) MG/3ML Ipratropium-Albuterol 0.5-2.5 (3) MG/3ML 02/19/2020 12:00:00 AM EDT 3.0 {ml_as_needed} active Ipratropium-Albuterol 0.5-2.5 (3) MG/3ML eCW1 ([facility] [facility] Bisoprolol Fumarate 5 MG Oral Tablet Bisoprolol Fumarate 5 M G 02/19/2020 12:00:00 AM EDT 1.0 {tablet} active Bi soprolol Fumarate 5 MG eCW1 ([facility]) Cholecalciferol 10 MCG (400 UNIT) UNK 02/19/2020 12:00:00 AM EDT 1.0 {capsule} active Cholecalciferol 10 MCG ( 400 UNIT) eCW1 ([facility]) gabapentin 800 MG Oral Tablet Gabapentin 800 MG Gabapentin 8 00 MG 02/19/2020 12:00:00 AM EDT 1.0 {tablet} active Ga bapentin 800 MG eCW1 ([facility]) Cholecalciferol 10 MCG (400 UNIT) UNK 02/19/2020 12:00:00 AM EDT 1.0 {capsule} active Cholecalciferol 10 MCG ( 400 UNIT) eCW1 ([facility]) Levofloxacin 500 MG Oral Tablet Levofloxacin 500 MG 02/19/2020 1 2:00:00 AM EDT 1.0 {tablet} active Levofloxaci n 500 MG eCW1 ([facility]) Bisoprolol Fumarate 5 MG Oral Tablet Bisoprolol Fumarate 5 M G 02/19/2020 12:00:00 AM EDT 1.0 {tablet} active Bi soprolol Fumarate 5 MG eCW1 ([facility]) Albuterol 0.833 MG/ML / Ipratropium Brom doyle 0.167 MG/ML Inhalant Solution Ipratropium-Albuterol 0.5-2.5 (3) MG/3ML Ipratropium-Albuterol 0.5-2.5 (3) MG/3ML 02/19/2020 12:00:00 AM EDT 3.0 {ml_as_needed} active Ipratropium-Albuterol 0.5-2.5 (3) MG/3ML eCW1 ([facility]) gabapentin 800 MG Oral Tablet Gabapentin 800 MG Gabapentin 8 00 MG 02/19/2020 12:00:00 AM EDT 1.0 {tablet} active Ga bapentin 800 MG eCW1 ([facility]) Cholecalciferol 10 MCG (400 UNIT) UNK 02/19/2020 12:00:00 AM EDT 1.0 {capsule} active Cholecalciferol 10 MCG ( 400 UNIT) eCW1 ([facility]) Cholecalciferol 10 MCG (400 UNIT) UNK 02/19/2020 12:00:00 AM EDT 1.0 {capsule} active Cholecalciferol 10 MCG ( 400 UNIT) eCW1 ([facility]) gabapentin 800 MG Oral Tablet Gabapentin 800 MG Gabapentin 8 00 MG 02/19/2020 12:00:00 AM EDT 1.0 {tablet} active Ga bapentin 800 MG eCW1 ([facility]) Cholecalciferol 10 MCG (400 UNIT) UNK 02/19/2020 12:00:00 AM EDT 1.0 {capsule} suspended Cholecalciferol 10 MCG (400 UNIT) eCW1 ([facility]) gabapentin 800 MG Oral Tablet Gabapentin 800 MG Gabapentin 8 00 MG 02/19/2020 12:00:00 AM EDT 1.0 {tablet} active Ga bapentin 800 MG eCW1 ([facility]) Cholecalciferol 10 MCG (400 UNIT) UNK 02/19/2020 12:00:00 AM EDT 1.0 {capsule} active Cholecalciferol 10 MCG ( 400 UNIT) eCW1 ([facility]) Bisoprolol Fumarate 5 MG Oral Tablet Bisoprolol Fumarate 5 M G 02/19/2020 12:00:00 AM EDT 1.0 {tablet} active Bi soprolol Fumarate 5 MG eCW1 ([facility]) Albuterol 0.833 MG/ML / Ipratropium Brom doyle 0.167 MG/ML Inhalant Solution Ipratropium-Albuterol 0.5-2.5 (3) MG/3ML Ipratropium-Albuterol 0.5-2.5 (3) MG/3ML 02/19/2020 12:00:00 AM EDT 3.0 {ml_as_needed} active Ipratropium-Albuterol 0.5-2.5 (3) MG/3ML eCW1 ([facility]) Cholecalciferol 10 MCG (400 UNIT) UNK 02/19/2020 12:00:00 AM EDT 1.0 {capsule} active Cholecalciferol 10 MCG ( 400 UNIT) eCW1 ([facility]) gabapentin 800 MG Oral Tablet Gabapentin 800 MG Gabapentin 8 00 MG 02/19/2020 12:00:00 AM EDT 1.0 {tablet} active Ga bapentin 800 MG eCW1 ([facility]) Cholecalciferol 10 MCG (400 UNIT) UNK 02/19/2020 12:00:00 AM EDT 1.0 {capsule} active Cholecalciferol 10 MCG ( 400 UNIT) eCW1 ([facility]) Bisoprolol Fumarate 5 MG Oral Tablet Bisoprolol Fumarate 5 M G 02/19/2020 12:00:00 AM EDT 1.0 {tablet} active Bi soprolol Fumarate 5 MG eCW1 ([facility]) Bisoprolol Fumarate 5 MG Oral Tablet Bisoprolol Fumarate 5 M G 02/19/2020 12:00:00 AM EDT 1.0 {tablet} active Bi soprolol Fumarate 5 MG eCW1 ([facility]) Cholecalciferol 10 MCG (400 UNIT) UNK 02/19/2020 12:00:00 AM EDT 1.0 {capsule} active Cholecalciferol 10 MCG ( 400 UNIT) eCW1 ([facility]) Albuterol 0.833 MG/ML / Ipratropium Brom doyle 0.167 MG/ML Inhalant Solution Ipratropium-Albuterol 0.5-2.5 (3) MG/3ML Ipratropium-Albuterol 0.5-2.5 (3) MG/3ML 02/19/2020 12:00:00 AM EDT 3.0 {ml_as_needed} active Ipratropium-Albuterol 0.5-2.5 (3) MG/3ML eCW1 ([facility]) gabapentin 800 MG Oral Tablet Gabapentin 800 MG Gabapentin 8 00 MG 02/19/2020 12:00:00 AM EDT 1.0 {tablet} active Ga bapentin 800 MG eCW1 ([facility]) gabapentin 800 MG Oral Tablet Gabapentin 800 MG Gabapentin 8 00 MG 02/19/2020 12:00:00 AM EDT 1.0 {tablet} active Ga bapentin 800 MG eCW1 ([facility]) gabapentin 800 MG Oral Tablet Gabapentin 800 MG Gabapentin 8 00 MG 02/19/2020 12:00:00 AM EDT 1.0 {tablet} active Ga bapentin 800 MG eCW1 ([facility]) gabapentin 800 MG Oral Tablet Gabapentin 800 MG Gabapentin 8 00 MG 02/19/2020 12:00:00 AM EDT 1.0 {tablet} active Ga bapentin 800 MG eCW1 ([facility]) Albuterol 0.833 MG/ML / Ipratropium Brom doyle 0.167 MG/ML Inhalant Solution Ipratropium-Albuterol 0.5-2.5 (3) MG/3ML Ipratropium-Albuterol 0.5-2.5 (3) MG/3ML 02/19/2020 12:00:00 AM EDT 3.0 {ml_as_needed} suspended Ipratropium-Albuterol 0.5-2.5 (3) MG/3ML eCW1 ([facility]) Albuterol 0.833 MG/ML / Ipratropium Brom doyle 0.167 MG/ML Inhalant Solution Ipratropium-Albuterol 0.5-2.5 (3) MG/3ML Ipratropium-Albuterol 0.5-2.5 (3) MG/3ML 02/19/2020 12:00:00 AM EDT 3.0 {ml_as_needed} active Ipratropium-Albuterol 0.5-2.5 (3) MG/3ML eCW1 ([facility]) Albuterol 0.833 MG/ML / Ipratropium Brom doyle 0.167 MG/ML Inhalant Solution Ipratropium-Albuterol 0.5-2.5 (3) MG/3ML Ipratropium-Albuterol 0.5-2.5 (3) MG/3ML 02/19/2020 12:00:00 AM EDT 3.0 {ml_as_needed} active Ipratropium-Albuterol 0.5-2.5 (3) MG/3ML eCW1 ([facility]) gabapentin 800 MG Oral Tablet Gabapentin 800 MG Gabapentin 8 00 MG 02/19/2020 12:00:00 AM EDT 1.0 {tablet} active Ga bapentin 800 MG eCW1 ([facility]) Bisoprolol Fumarate 5 MG Oral Tablet Bisoprolol Fumarate 5 M G 02/19/2020 12:00:00 AM EDT 1.0 {tablet} active Bi soprolol Fumarate 5 MG eCW1 ([facility]) Albuterol 0.833 MG/ML / Ipratropium Brom doyle 0.167 MG/ML Inhalant Solution Ipratropium-Albuterol 0.5-2.5 (3) MG/3ML Ipratropium-Albuterol 0.5-2.5 (3) MG/3ML 02/19/2020 12:00:00 AM EDT 3.0 {ml_as_needed} active Ipratropium-Albuterol 0.5-2.5 (3) MG/3ML eCW1 ([facility]) Albuterol 0.833 MG/ML / Ipratropium Brom doyle 0.167 MG/ML Inhalant Solution Ipratropium-Albuterol 0.5-2.5 (3) MG/3ML Ipratropium-Albuterol 0.5-2.5 (3) MG/3ML 02/19/2020 12:00:00 AM EDT 3.0 {ml_as_needed} suspended Ipratropium-Albuterol 0.5-2.5 (3) MG/3ML eCW1 ([facility]) Bisoprolol Fumarate 5 MG Oral Tablet Bisoprolol Fumarate 5 M G 02/19/2020 12:00:00 AM EDT 1.0 {tablet} active Bi soprolol Fumarate 5 MG eCW1 ([facility]) Bisoprolol Fumarate 5 MG Oral Tablet Bisoprolol Fumarate 5 M G 02/19/2020 12:00:00 AM EDT 1.0 {tablet} active Bi soprolol Fumarate 5 MG eCW1 ([facility]) Albuterol 0.833 MG/ML / Ipratropium Brom doyle 0.167 MG/ML Inhalant Solution Ipratropium-Albuterol 0.5-2.5 (3) MG/3ML Ipratropium-Albuterol 0.5-2.5 (3) MG/3ML 02/19/2020 12:00:00 AM EDT 3.0 {ml_as_needed} active Ipratropium-Albuterol 0.5-2.5 (3) MG/3ML eCW1 ([facility]) Cholecalciferol 10 MCG (400 UNIT) UNK 02/19/2020 12:00:00 AM EDT 1.0 {capsule} suspended Cholecalciferol 10 MCG (400 UNIT) eCW1 ([facility]) Bisoprolol Fumarate 5 MG Oral Tablet Bisoprolol Fumarate 5 M G 02/19/2020 12:00:00 AM EDT 1.0 {tablet} active Bi soprolol Fumarate 5 MG eCW1 ([facility]) gabapentin 800 MG Oral Tablet Gabapentin 800 MG Gabapentin 8 00 MG 02/19/2020 12:00:00 AM EDT 1.0 {tablet} active Ga bapentin 800 MG eCW1 ([facility]) Cholecalciferol 10 MCG (400 UNIT) UNK 02/19/2020 12:00:00 AM EDT 1.0 {capsule} active Cholecalciferol 10 MCG ( 400 UNIT) eCW1 ([facility]) Lactulose 667 MG/ML Oral Solution Lactulose 01/17/2020 12:00:00 AM EDT active [facility]ENT ([facility], ) Fluticasone Propionate 50 MCG/ACT Fluticasone Propionate 50 MCG/ACT 12/07/2019 12:00:00 AM EDT 1.0 {spray_in_each_nostril} acti ve Fluticasone Propionate 50 MCG/ACT eCW1 ([facility]) Fluticasone Propionate 50 MCG/ACT Fluticasone Propionate 50 MCG/ACT 12/07/2019 12:00:00 AM EDT 1.0 {spray_in_each_nostril} susp ended Fluticasone Propionate 50 MCG/ACT eCW1 ([facility]) Fluticasone Propionate 50 MCG/ACT Fluticasone Propionate 50 MCG/ACT 12/07/2019 12:00:00 AM EDT 1.0 {spray_in_each_nostril} susp ended Fluticasone Propionate 50 MCG/ACT eCW1 ([facility]) Fluticasone Propionate 50 MCG/ACT Fluticasone Propionate 50 MCG/ACT 12/07/2019 12:00:00 AM EDT 1.0 {spray_in_each_nostril} acti ve Fluticasone Propionate 50 MCG/ACT eCW1 ([facility]) Fluticasone Propionate 50 MCG/ACT Fluticasone Propionate 50 MCG/ACT 12/07/2019 12:00:00 AM EDT 1.0 {spray_in_each_nostril} acti ve Fluticasone Propionate 50 MCG/ACT eCW1 ([facility]) Fluticasone Propionate 50 MCG/ACT Fluticasone Propionate 50 MCG/ACT 12/07/2019 12:00:00 AM EDT 1.0 {spray_in_each_nostril} acti ve Fluticasone Propionate 50 MCG/ACT eCW1 ([facility]) Fluticasone Propionate 50 MCG/ACT Fluticasone Propionate 50 MCG/ACT 12/07/2019 12:00:00 AM EDT 1.0 {spray_in_each_nostril} acti ve Fluticasone Propionate 50 MCG/ACT eCW1 ([facility]) Fluticasone Propionate 50 MCG/ACT Fluticasone Propionate 50 MCG/ACT 12/07/2019 12:00:00 AM EDT 1.0 {spray_in_each_nostril} acti ve Fluticasone Propionate 50 MCG/ACT eCW1 ([facility]) Fluticasone Propionate 50 MCG/ACT Fluticasone Propionate 50 MCG/ACT 12/07/2019 12:00:00 AM EDT 1.0 {spray_in_each_nostril} acti ve Fluticasone Propionate 50 MCG/ACT eCW1 ([facility]) Fluticasone Propionate 50 MCG/ACT Fluticasone Propionate 50 MCG/ACT 12/07/2019 12:00:00 AM EDT active 1 spray in each nostril eCW1 ([facility]) Fluticasone Propionate 50 MCG/ACT Fluticasone Propionate 50 MCG/ACT 12/07/2019 12:00:00 AM EDT 1.0 {spray_in_each_nostril} acti ve Fluticasone Propionate 50 MCG/ACT eCW1 ([facility]) Fluticasone Propionate 50 MCG/ACT Fluticasone Propionate 50 MCG/ACT 12/07/2019 12:00:00 AM EDT 1.0 {spray_in_each_nostril} acti ve Fluticasone Propionate 50 MCG/ACT eCW1 ([facility]) Fluticasone Propionate 50 MCG/ACT Fluticasone Propionate 50 MCG/ACT 12/07/2019 12:00:00 AM EDT 1.0 {spray_in_each_nostril} acti ve Fluticasone Propionate 50 MCG/ACT eCW1 ([facility]) Fluticasone Propionate 50 MCG/ACT Fluticasone Propionate 50 MCG/ACT 12/07/2019 12:00:00 AM EDT active 1 spray in each nostril eCW1 ([facility]) Fluticasone Propionate 50 MCG/ACT Fluticasone Propionate 50 MCG/ACT 12/07/2019 12:00:00 AM EDT 1.0 {spray_in_each_nostril} acti ve Fluticasone Propionate 50 MCG/ACT eCW1 ([facility]) Fluticasone Propionate 50 MCG/ACT Fluticasone Propionate 50 MCG/ACT 12/07/2019 12:00:00 AM EDT 1.0 {spray_in_each_nostril} acti ve Fluticasone Propionate 50 MCG/ACT eCW1 ([facility]) Fluticasone Propionate 50 MCG/ACT Fluticasone Propionate 50 MCG/ACT 12/07/2019 12:00:00 AM EDT 1.0 {spray_in_each_nostril} acti ve Fluticasone Propionate 50 MCG/ACT eCW1 ([facility]) cefpodoxime 200 MG Oral Tablet Cefpodoxime Proxetil 20 0 MG Cefpodoxime Proxetil 200 MG 08/24/2019 12:00:00 AM EST active 1 tablet with food eCW1 ([facility]) Albuterol-Ipratropium 2.5-0.5 MG/3ML UNK 08/23/2019 12:00: 00 AM EST 3.0 {ml_as_needed} suspended Albuterol-Iprat ropium 2.5-0.5 MG/3ML eCW1 ([facility]) Albuterol-Ipratropium 2.5-0.5 MG/3ML UNK 08/23/2019 12:00:00 AM EST active 3 ml as needed eCW1 ([facility]) Albuterol-Ipratropium 2.5-0.5 MG/3ML UNK 08/23/2019 12:00:00 AM EST active 3 ml as needed eCW1 ([facility]) Albuterol-Ipratropium 2.5-0.5 MG/3ML UNK 08/23/2019 12:00: 00 AM EST 3.0 {ml_as_needed} active Albuterol-Ipratro pium 2.5-0.5 MG/3ML eCW1 ([facility]) Nebulizer/Tubing/Mouthpiece - Nebulizer/Tubing/Mouthpiece - 08/23/2019 12:00:00 AM EST active Nebulizer/Tubing/ Mouthpiece - eCW1 ([facility]) Nebulizer/Tubing/Mouthpiece - Nebulizer/Tubing/Mouthpiece - 08/23/2019 12:00:00 AM EST active Nebulizer/Tubing/ Mouthpiece - eCW1 ([facility]) Nebulizer/Tubing/Mouthpiece - Nebulizer/Tubing/Mouthpiece - 08/23/2019 12:00:00 AM EST active Nebulizer/Tubing/ Mouthpiece - eCW1 ([facility]) Nebulizer/Tubing/Mouthpiece - Nebulizer/Tubing/Mouthpiece - 08/23/2019 12:00:00 AM EST active Nebulizer/Tubing/ Mouthpiece - eCW1 ([facility]) Albuterol-Ipratropium 2.5-0.5 MG/3ML UNK 08/23/2019 12:00: 00 AM EST 3.0 {ml_as_needed} active Albuterol-Ipratro pium 2.5-0.5 MG/3ML eCW1 ([facility]) doxycycline hyclate 100 MG Oral Capsule Doxycycline Hy clate 100 MG Doxycycline Hyclate 100 MG 08/23/2019 12:00:00 AM EST active 1 capsule eCW1 ([facility]) Albuterol-Ipratropium 2.5-0.5 MG/3ML UNK 08/23/2019 12:00: 00 AM EST 3.0 {ml_as_needed} active Albuterol-Ipratro pium 2.5-0.5 MG/3ML eCW1 ([facility]) Nebulizer/Tubing/Mouthpiece - Nebulizer/Tubing/Mouthpiece - 08/23/2019 12:00:00 AM EST active Nebulizer/Tubing/ Mouthpiece - eCW1 ([facility]) Nebulizer/Tubing/Mouthpiece - Nebulizer/Tubing/Mouthpiece - 08/23/2019 12:00:00 AM EST active as directed eCW1 ([facility]) Albuterol-Ipratropium 2.5-0.5 MG/3ML UNK 08/23/2019 12:00: 00 AM EST 3.0 {ml_as_needed} active Albuterol-Ipratro pium 2.5-0.5 MG/3ML eCW1 ([facility]) Albuterol-Ipratropium 2.5-0.5 MG/3ML UNK 08/23/2019 12:00: 00 AM EST 3.0 {ml_as_needed} active Albuterol-Ipratro pium 2.5-0.5 MG/3ML eCW1 ([facility]) Nebulizer/Tubing/Mouthpiece - Nebulizer/Tubing/Mouthpiece - 08/23/2019 12:00:00 AM EST active Nebulizer/Tubing/ Mouthpiece - eCW1 ([facility]) Albuterol-Ipratropium 2.5-0.5 MG/3ML UNK 08/23/2019 12:00: 00 AM EST 3.0 {ml_as_needed} active Albuterol-Ipratro pium 2.5-0.5 MG/3ML eCW1 ([facility]) Nebulizer/Tubing/Mouthpiece - Nebulizer/Tubing/Mouthpiece - 08/23/2019 12:00:00 AM EST active Nebulizer/Tubing/ Mouthpiece - eCW1 ([facility]) Albuterol-Ipratropium 2.5-0.5 MG/3ML UNK 08/23/2019 12:00: 00 AM EST 3.0 {ml_as_needed} active Albuterol-Ipratro pium 2.5-0.5 MG/3ML eCW1 ([facility]) Nebulizer/Tubing/Mouthpiece - Nebulizer/Tubing/Mouthpiece - 08/23/2019 12:00:00 AM EST active Nebulizer/Tubing/ Mouthpiece - eCW1 ([facility]) Nebulizer/Tubing/Mouthpiece - Nebulizer/Tubing/Mouthpiece - 08/23/2019 12:00:00 AM EST active Nebulizer/Tubing/ Mouthpiece - eCW1 ([facility]) Nebulizer/Tubing/Mouthpiece - Nebulizer/Tubing/Mouthpiece - 08/23/2019 12:00:00 AM EST active as directed eCW1 ([facility]) Albuterol-Ipratropium 2.5-0.5 MG/3ML UNK 08/23/2019 12:00: 00 AM EST 3.0 {ml_as_needed} active Albuterol-Ipratro pium 2.5-0.5 MG/3ML eCW1 ([facility]) Nebulizer/Tubing/Mouthpiece - Nebulizer/Tubing/Mouthpiece - 08/23/2019 12:00:00 AM EST active Nebulizer/Tubing/ Mouthpiece - eCW1 ([facility]) Nebulizer/Tubing/Mouthpiece - Nebulizer/Tubing/Mouthpiece - 08/23/2019 12:00:00 AM EST active Nebulizer/Tubing/ Mouthpiece - eCW1 ([facility]) Nebulizer/Tubing/Mouthpiece - Nebulizer/Tubing/Mouthpiece - 08/23/2019 12:00:00 AM EST active as directed eCW1 ([facility]) Nebulizer/Tubing/Mouthpiece - Nebulizer/Tubing/Mouthpiece - 08/23/2019 12:00:00 AM EST active Nebulizer/Tubing/ Mouthpiece - eCW1 ([facility]) Prednisone 20 MG Oral Tablet PredniSONE 20 MG PredniSONE 20 MG 08/23/2019 12:00:00 AM EST active 1 tablet eCW1 ([facility]) Nebulizer/Tubing/Mouthpiece - Nebulizer/Tubing/Mouthpiece - 08/23/2019 12:00:00 AM EST active Nebulizer/Tubing/ Mouthpiece - eCW1 ([facility]) Albuterol-Ipratropium 2.5-0.5 MG/3ML UNK 08/23/2019 12:00: 00 AM EST 3.0 {ml_as_needed} active Albuterol-Ipratro pium 2.5-0.5 MG/3ML eCW1 ([facility]) Albuterol-Ipratropium 2.5-0.5 MG/3ML UNK 08/23/2019 12:00: 00 AM EST 3.0 {ml_as_needed} active Albuterol-Ipratro pium 2.5-0.5 MG/3ML eCW1 ([facility]) Albuterol-Ipratropium 2.5-0.5 MG/3ML UNK 08/23/2019 12:00: 00 AM EST 3.0 {ml_as_needed} suspended Albuterol-Iprat ropium 2.5-0.5 MG/3ML eCW1 ([facility]) Albuterol-Ipratropium 2.5-0.5 MG/3ML UNK 08/23/2019 12:00: 00 AM EST 3.0 {ml_as_needed} active Albuterol-Ipratro pium 2.5-0.5 MG/3ML eCW1 ([facility]) Albuterol-Ipratropium 2.5-0.5 MG/3ML UNK 08/23/2019 12:00:00 AM EST active 3 ml as needed eCW1 ([facility]) Nebulizer/Tubing/Mouthpiece - Nebulizer/Tubing/Mouthpiece - 08/23/2019 12:00:00 AM EST active Nebulizer/Tubing/ Mouthpiece - eCW1 ([facility]) Albuterol-Ipratropium 2.5-0.5 MG/3ML UNK 08/23/2019 12:00: 00 AM EST 3.0 {ml_as_needed} active Albuterol-Ipratro pium 2.5-0.5 MG/3ML eCW1 ([facility]) Nebulizer/Tubing/Mouthpiece - Nebulizer/Tubing/Mouthpiece - 08/23/2019 12:00:00 AM EST active Nebulizer/Tubing/ Mouthpiece - eCW1 ([facility]) Albuterol-Ipratropium 2.5-0.5 MG/3ML UNK 08/23/2019 12:00: 00 AM EST 3.0 {ml_as_needed} active Albuterol-Ipratro pium 2.5-0.5 MG/3ML eCW1 ([facility]) Spironolactone 25 MG Oral Tablet Spironolactone 25 MG active 1 tablet with food eCW1 ([facility]) Spironolactone 25 MG Oral Tablet Spironolactone 25 MG active 1 tablet with food eCW1 ([facility]) Spironolactone 25 MG Oral Tablet Spironolactone 25 MG active 1 tablet with food eCW1 ([facility]) Spironolactone 25 MG Oral Tablet Spironolactone 25 MG active 1 tablet with food eCW1 ([facility]) Spironolactone 25 MG Oral Tablet Spironolactone 25 MG active 1 tablet with food eCW1 ([facility]) Spironolactone 25 MG Oral Tablet Spironolactone 25 MG active 1 tablet with food eCW1 ([facility]) Spironolactone 25 MG Oral Tablet Spironolactone 25 MG active 1 tablet with food eCW1 ([facility]) Spironolactone 25 MG Oral Tablet Spironolactone 25 MG active 1 tablet with food eCW1 ([facility]) Spironolactone 25 MG Oral Tablet Spironolactone 25 MG active 1 tablet with food eCW1 ([facility]) Spironolactone 25 MG Oral Tablet Spironolactone 25 MG active 1 tablet with food eCW1 ([facility]) Spironolactone 25 MG Oral Tablet Spironolactone 25 MG active 1 tablet with food eCW1 ([facility]) Spironolactone 25 MG Oral Tablet Spironolactone 25 MG active 1 tablet with food eCW1 ([facility]) Spironolactone 25 MG Oral Tablet Spironolactone 25 MG active 1 tablet with food eCW1 ([facility]) Insurance Providers Payer name Policy type / Coverage type Policy ID Covered republican ID Covered republican's relationship to ramon Policy Ramon Plan Information [facility]MER[facility] [id number] SP [id number] [facility] [id number] S [id number] [facility] [id number] SP [id number] ANSI-Commercial [id number] ANSI-Medicaid [id number] ANSI-Commercial [id number] ANSI-Medicaid [id number] [facility] Medicaid [id number] Self [id number] [place] - Medicaid [employer] (HMO) [id number] Self [id number] Medicaid Medigap Part B [id number] Self [id number] [place] - Medicaid o Health Maintenance Organization (HMO) [id number] Self [id number] ANSI-Medicaid [id number] MEDICAID [id number] SP [id number] ANSI-Medicaid [id number] ANSI-Medicaid [id number] Medicaid P [id number] S [id number] ANSI-Commercial [id number]-[id number] 622g0v4e-fo63-073b-1k0y-zh6j4rqg66w9 ANSI-Medicaid [id number]-[id number]-[id number] ANSI-Commercial osz1yblh-3lb5-1t2p-469q-hc05fi63imt8 xtp5hhsg-2yj6-5f0l-857o-wc89hr81nkg7 ANSI-Medicaid [id number]-[id number] ANSI-Commercial 411y4e26-s014-2024-oj9a-34gmu88260z5 184q4f59-f437-6341-pb4t-12rue23713v6 ANSI-Medicaid [id number]-5f6g-071o-[id number] ANSI-Medicaid [id number] ANSI-Commercial 8sk3j117-129q-5541-2478-9681nlq2y094 6gk0y051-817o-9268-8785-8785dbv0r354 ANSI-Commercial 9rzy5tp8-9993-6307-4gvy-671179o63592 6mmw1ky3-8147-5007-4mif-[id number] ANSI-Commercial 357540w8-3317-96i6-8887-152f9vn8639q 780212z3-9252-77e1-0053-028g1kl4249m ANSI-Medicaid [id number] ANSI-Medicaid [id number]-[id number] ANSI-Commercial 2jm2v5d2-sk8k-31s4-b809-1w673m5j71u9 3jw6i7p4-wn0t-92a6-z212-1c227w4n99o1 ANSI-Medicaid [id number] [facility] [id number] ANSI-Commercial [id number]-s534-25as-dy58-4r8qlk2ci7io 36449558-t636-14jv-rv46-3o9pfn5jy2ay ANSI-Medicaid [id number] [id number]-31uz-09yf-37ns-q4r78hw0s20p ANSI-Medicaid [id number]-94c4-7qy6-6mj2-m79nvev1f7dv ANSI-Commercial t5474ayu-[id number] a9476qna-4ik7-7n09-89n0-5999wd596255 ANSI-Commercial d048964e-98ov-8i2n-q584-qe33n65155q2 m006621o-25ko-9o9n-o839-km19m58886y1 ANSI-Medicaid [id number]-[id number] ANSI-Commercial 7k903q7g-5z39-4y9o-h3n2-8kw2i3576017 6i778g0i-0x21-2j4b-c1b8-5wb9p4931509 ANSI-Medicaid [id number]-ofry-8712-[id number] ANSI-Commercial [id number]-a166-79i4-x73n-y68h171r31h3 5504210d-w190-76o9-p64d-w59r906m40p6 ANSI-[employer] iu94n424-9465-6279-jw5z-5fpu2cigx3f1 vg70d565-1485-7280-jn7e-9uyk2ldsw0g2 ANSIFilip TechnologiesCommercial e3j30878-34f3-3gnf-6l73-5kb38d235433 h9m48123-85n0-2mwz-1w75-2cn94q183837 ANSI-Medicaid [id number]-[id number] [employer]-Medicaid [id number] 1z7l2f04-02oc-6qm2-3r67-r83j5w28213x [employer]-Medicaid [id number] 20vbl729-i3jl-7195-in88-gje401fpw559 ANSI-Medicaid [id number] ANSI-[employer] 7e33s28h-4y36-667y-jcj8-d70t7dq180i0 1o12n94g-1r73-117q-eue9-k17l4ve881v0 ANSI-Commercial enwb12x3-j8q6-3aeh-z24b-440129a2ig00 zlyl17t3-n6o6-3igm-c37g-714112m7oi76 ANSI-Medicaid [id number] ANSI-Commercial y37wg761-ng83-703s-63n6-7500s7v1d71v q05un987-ul35-790r-03p7-8927z0e4e81d ANSI-Medicaid qg24v6a4-6h68-8lj0-962q-g5ang14d0mdh lq66m9r8-0u08-4qh7-373b-u3hyp60h8zsm ANSI-Commercial 5974e42d-wqk7-71m0-t761-o0046516p87q 3164s24r-lta2-89i7-x335-d5659965m05m ANSI-Medicaid o09c24r1-3ils-9l1o-w16j-[id number] c44y86v6-6xwq-3o7p-o26z-1k129673xfw4 ANSI-Commercial knhc854m-v98e-9g56-9820-5339m6ne085y nfan445z-g93y-5z88-8284-4646e5sc937e ANSI-Commercial 7u580382-3fv7-9888-a16r-31h27cj5iy1i 7v762945-1ha8-5393-j01z-15n51dk7vf0r ANSI-Medicaid 8hm63v1q-6uqo-6749-3zvn-293h88a5n0qi 3md38q5f-5umm-4096-4ixs-060d48i6a7pj ANSI-Medicaid [id number]-[id number] 2nm1130e-82u2-3cu9-4531-5w03913px380 ANSI-Commercial 1q419829-1493-4144-rwyh-2u7v6o2op6lo 1h541186-7141-9655-fqlk-3h9k0f9yn1rh ANSI-Medicaid dr773a2d-gd1u-31jc-pi38-9j3d9b722ua7 zv794f8d-rw0r-12wt-by46-3m0o8i534ck2 ANSI-Commercial 793gqf2q-063y-47a0-j894-757wr3wh76l8 078kbu4q-017t-10c9-o964-697bs9ik27x8 ANSI-Medicaid bo1gpakx-qe5h-6064-e006-4h6k040kp3dn hu2suhlr-nb0h-7312-e853-5e0j450mk9au ANSI-Commercial 849pc189-28q3-6pj9-kbjy-7a79359u0168 419cm356-28x9-6bv3-fjni-8w37767l2311 ANSI-Commercial bwp2jw76-qpeu-8aj7-6290-79400u24m5as aqp4tq49-eegv-3vr5-6848-05126b98s8pa ANSI-Medicaid [id number]-c68r-1mf7-o13x-[id number]-t51t-0ci8-x95y-3v264o38ir90 ANSI-Medicaid 4vg7syr1-4m56-42k5-[id number] 8ey8leu6-6d06-42f6-[id number] ANSI-Commercial 45l6k2en-0epq-6n6h-df2z-e003459125i2 65w1c4iv-2vxn-5t8f-yv8r-u392591965y6 ANSI-Medicaid z4qu5b28-3yv5-0it2-vdi0-xr80xm0nc98o b7na8g95-3fl8-8an6-dxz8-uv79ml2mq29b ANSI-Commercial uzs48781-6g2d-5uni-2nt7-l8471fv2j87c tbs25850-1l3k-0yyr-0ij5-m0634uh2m69u ANSI-Commercial 1ux86935-vz36-7g9s-3k01-429q94h2glf9 6iy15315-bw26-0j3u-4j30-038o70r2eqd1 ANSI-Commercial 1z04y0r6-2851-9ti7-pzx1-9x8vpki20vk2 8e75s8x8-0952-7jb6-wwf7-9n6nlfq02th2 [facility] [id number]-[id number] e3s0xp01-032i-7678-o238-p2v2go4c1011 [facility] [id number]-[id number] [facility] [id number]-[id number] 1xjgj1y3-6204-1h94-fw7k-[id number] [facility] [id number]-p4ep-[id number] bc13lv76-r840-0i74-n5wf-j9774uxr1i20 ANSI-Commercial 6cb811za-a0oj-0993-1k09-ina51k58nms4 8rz542mp-x9hi-0088-4i88-bny77c31qrj3 ANSI-Commercial 60a4c24b-794u-8ou0-zi42-05983bk51763 43p3u08k-576o-6jw0-pg11-74004ao06883 ANSI-Commercial 82p6g22m-415h-6566-822e-724jsp2ee903 49i8v93q-875d-6997-697c-046lgn8sz268 ANSI-Medicaid [id number]-0432-a65y-[id number] 1638919q-lebd-9686-a52x-0f32wg7b22y3 ANSI-Medicaid [id number] q260pq11-7y98-1mf2-0842-55g543c0h44e ANSI-Commercial 6osnx20m-i133-7i94-146p-xb6qn55n623r 5zoix66l-z500-4j58-088q-hj6hc88d120l ANSI-Commercial u76g2600-xr43-1534-hr1v-b4604s26it3x m28g5646-bm17-8212-uw6z-r2344o39vv5p ANSI-Medicaid 77zc0q6d-2p8b-8zz3-4517-[id number] 11np8e5m-4f4g-8zj8-6962-r4z7csz408kd ANSI-Commercial 37169gx9-91qy-74e6-rj76-459ra6429l93 27448vg6-03pb-65c9-vx64-938le5202c99 [facility] gu15lv5h-l5ut-6139-j3r7-[id number] ww42ou4b-l8fl-3656-k3o2-a51198t4t147 [facility] [id number]-3hn1-[id number] 5u98u90v-4413-9bgh-7of4-o91r0b930e93 ANSI-Medicaid 4ge1o34s-[id number] 5qu0j16c-fnl8-4x54-7399-4jd7929p603k ANSI-Commercial 5h4471s9-602n-230y-56q5-r7r7l70m3679 1t6069h1-564d-437i-01k9-l0d2a74n6004 ANSI-Commercial f6t45676-2wse-99io-65pg-500m42c907u7 p1l91807-5rdx-20bw-64pi-605j18w123v9 ANSI-Medicaid [id number]-[id number] s1w1o6y4-0e39-93g1-i6t1-8m716213393o ANSI-Medicaid 0x0cstv0-89f6-8hr4-[id number] 3m0jktd7-62y9-8yi5-p638-657d69470zs4 ANSI-Commercial 86s1mo82-ub4k-45yc-i4m3-42vwe58718in 08m6yu25-mp6v-19mb-z5w5-99llr40750sk ANSI-Commercial pe4i9632-a081-70l7-to6z-2q52b34834dh dp6a0804-j519-80o1-jw4s-6q74e49805ds ANSI-Medicaid 215c3ckn-5732-3tge-5v0x-0gi0shh4ze06 594j5ouv-3480-8ejo-2x4y-7ec4xwb4sd95 ANSI-Medicaid [id number] 621919c1-172g-[id number] ANSI-Commercial 8f58755a-6k30-1577-y3s0-n46n5014z41f 1y73387y-5q94-1207-l4e5-h96c4301i05d ANSI-Commercial 222oq9va-sd0j-6i35-33z0-7m970w09v585 693bu3ry-bp4d-1m62-07g0-7k654d33n346 ANSI-Commercial 0y099428-eg2e-033g-r17r-x31osy1c5fib 0b854563-xt8q-492f-t08d-d38vai0c3jns ANSI-Medicaid fe68hjui-70s9-281t-v96g-q0617bz98d8u zv94kxzf-36g3-654u-b03q-e9427ea10w6p ANSI-Commercial 3po9ohfg-39dr-74s3-30g4-vff44b3970y7 8er0zgnt-53gw-59a4-87t2-zgh43c6819w5 ANSI-Medicaid [id number]-43dl-5150-[id number] 3k2q6j68-557e-42rf-1959-p7052ic4jc35 ANSI-Medicaid 4p19i3z2-01v9-223a-g2br-[id number] 7o87n9n0-54t5-883k-w8hh-390107v4g404 ANSI-Medicaid 787w1p65-j329-2j57-06nd-967yh6bt3yho 493g0u30-z500-8d81-57db-070ef6ve6dgw ANSI-Commercial 4t8o9a72-zm03-6l85-a7dp-y92wi9psb7t7 6n6t3x52-kn75-8j63-c8ay-z04dp3qut5d6 ANSI-Commercial 91d26564-1q7w-75m1-4h35-3zk360s0249i 66g96048-7b1e-59o5-4n31-2ki029a2779o ANSI-Medicaid 3yt06hc3-16a5-4t48-9983-kaa0f3d3vhb3 0sy71kx0-55w7-8x05-4780-ulg9q3c5zph9 ANSI-Medicaid [id number]-57f7-42z7-3aphp8qktn36 u3e08353-2wfw-95x5-06b7-8eops8mjvc04 ANSI-Commercial 651421c7-01cv-66i9-35i1-6487ot88zbxf 591264d2-50pb-88x0-03s4-0375ki90mape ANSI-Commercial 1a302on1-v187-5545-74n0-7g700912360a 9b359hw3-f430-1289-34e3-0k049324051r ANSI-Commercial omm823m6-1349-6g07-3113-27nx4wztv38r gvr363s3-6533-3t82-0908-45sp3pfiz40u ANSI-Medicaid l099s15h-0458-1z7d-i94o-9u055a8ieouz p742x47a-0176-7u8m-k38l-6i531z4gzwfl ANSI-Commercial u155r908-44mm-7q96-km53-1a6b150ikqi2 u856b713-34xr-8i30-if69-0p1e240yxga5 ANSI-Medicaid [id number]-z804-b6j8y423ural 821jo609-6767-192l-v092-f6o3s917mbaz ANSI-Commercial x3o134x7-9j80-9354-ir15-65fzy99160r5 s2f328c9-2v74-0644-bk11-21yik22001x3 ANSI-Commercial 2241p86u-9zi5-6m79-h03b-5l6woy853928 0338q10w-4gw5-8t12-y57p-2y7zsb367365 ANSI-Medicaid rlpf4uw1-12q2-990q-f603-zi37nd2q5ds6 zbqm3ab5-65q8-184l-b353-vc02qu2k2fj5 ANSI-Medicaid [id number]-c75o-[id number] 3f27840a-o878-63w3-h79b-f95921f73555 ANSI-Commercial 701u232v-3r5y-05d9-oj76-68r049k17416 409s102b-7f1i-67e9-gt89-28y939l01555 [facility] [id number]-yq8e-[id number] 083y7ent-4159-1x26-is3d-[id number] ANSI-Medicaid [id number]-56i8-2048-m3k0-2x8lsr2si4t6 595969tg-12q8-3113-n3w3-4w8zst8jk0m6 ANSI-Commercial d8w9kmxj-9435-304r-t32x-2b37z63t1598 e5x7ofyy-0904-259g-r80j-1k23u93n6302 ANSI-Medicaid [id number]-kb1u-0pgc-o76u-5j1i3d343twq o84f88r3-ot9u-6qlp-a85v-6v8z4e147efe ANSI-Commercial o902e8m5-gd70-47xv-5611-7l690n1h23j5 j735m2a9-sh61-43xu-3165-6n041m1z51b3 [facility] [id number]-[id number] qxz522t9-4mz9-053t-c6bq-[id number] AN[facility]-[employer] ilqd2986-9u9t-687o-81d9-su749kq0q7e2 pipz2492-9h0q-106x-33b5-ay417ud0i2t1 [employer] 9167x17j-86g2-06me-564q-691e85f25711 2311l72t-31b2-65jw-360g-360p20s49715 [employer] 00309s79-6qg3-0ekv-0717-1839m9s4lg89 26345e57-2bb9-4xnv-4612-0106g0l7sz80 [facility]mail[facility] [id number]-a05c-[id number] pnm8h6vs-u89l-3dw4-7jcv-[id number] [facility] [id number] [facility] [id number]-7k6w-[id number] [id number]-2h1z-p4155wek6b3m [employer] 977da25y-78iv-879x-9787-p9zm15v4y6a6 500tr88c-96un-434z-4097-j9va55s8x1q5 [employer] o7597t81-9t2u-8a39-w878-ah19o8n55357 j7276p36-8c2n-2t40-l803-zk92d9t99395 [facility]ENTERIFilip TechnologiesMedicaid [id number]-w90o-[id number] m142e81x-l89t-4i57-3v1s-72g805pm47o3 ANSI-Medicaid [id number]-qi96-603g-[id number] niv58vkq-sc24-860j-8z9e-[id number] ANSI-Commercial 5u19k51i-0p14-6ez5-97j6-iy476pzv9280 6v69v82y-9j60-9sm8-71n1-il539rmu3812 ANSI-Commercial 542e545m-di58-0s11-s3p9-z0wi8353c054 886c807o-xi01-1y88-h2x8-j2ox0569w[address] [facility]-Medicaid [id number]-k77i-[id number] [facility]-Medicaid 72o1zbe8-fpki-4cy7-yy83-o1l4po4a6t7s 98h2erd4-hasl-6aa8-je02-z1b1bf7r9q0o [facility] [id number]-iu4b-[id number] 3256262o-yr1l-1195-423y-[id number] ANSI-Commercial w7770565-3765-9jt2-268z-6h8vz08l515y q8350533-6480-6aj8-429o-1s5tl65s662h ANSI-Commercial tom222hk-p58e-07r0-5879-7gr44fmui1du ywy816ug-j05i-94r9-6972-5yt39tcfz0op ANSI-Medicaid [id number]-[id number] 997fon89-8940-1s03-b528-o94c6ig28698 ANSI-Commercial 0a4cq050-677b-198z-f690-v1mw7igz9rkr 4u5se533-817i-681q-q649-p4md0kac9spg ANSI-Medicaid 14trogc0-43b5-2v3i-[id number] 51uvbdf2-08p7-0l5l-8883-[id number] ANSI-Commercial 62i5576w-r702-7625-npxk-2b44x10737p1 51j9978w-k252-7140-dbhl-9s11y39577b9 ANSI-Commercial as21252s-8i8i-26oi-49f9-198679y0ez7e tj83011v-0k6d-46cm-27r7-272530e1jj4q ANSI-Commercial bq02c482-uxu8-09f7-5de0-52n736fub535 po32d922-lpl3-34i7-8bg6-03o638gyn274 ANSI-Medicaid [id number]-yf33-[id number]-m861-3g7b-jw60-[id number] ANSI-Medicaid [id number]-o764-2pn1-3l75-[id number] 861zm69t-a388-9tf3-1z19-g0563ue7299e ANSI-Commercial 2smz525b-eg6a-1a26-x514-23ancl3140g7 0zyr015h-tw2w-5r60-a032-23bwzi9715f8 ANSI-Medicaid [id number]-[id number] e28k7u13-7493-45xw-2i82-4o394tmbn796 ANSI-Commercial y11bf925-ar5m-933b-6426-9aoq2by509sl j29mu365-iq1n-916x-0123-9qsy9hr543nb ANSI-Medicaid [id number]-wyda-[id number] 7k25re40-1701-90gs-ptqa-36e9f86f0hy9 ANSI-Medicaid 2nx7ih36-866z-9412-o8zo-zzy11h0328u5 1kk3hb49-647x-8018-f2bb-[id number] ANSI-Medicaid [id number]-m09v-603u-[id number] 29x2489m-x52f-587z-a456-38l334z06ag4 [employer] a8shcwu8-bw41-4332-6rq7-8782sc0k3x3p y1zjwrg5-po53-9541-6no1-3105gx2t1k2y [employer] 18844fi7-3v0o-49y0-zx96-tc61925s0vb0 97305ph0-1k4o-76x4-oj07-oi24382w9ff4 [employer] 5u860415-m6b6-4s0q-1096-t581519692l5 5s698053-e0b5-1e7g-8221-m923047898d3 [employer] 25y71pp7-416h-372k-i8m2-35y6l576d0dh 08q95er6-359c-640k-q9h7-05f0y949o4qa ANSI-Medicaid [id number]-[id number] 6o1z9843-214w-6984-l215-[id number] ANSI-Medicaid [id number]-j1rd-[id number]-sa95-4923-f7kh-k5p631l28pv8 [employer] i09r650d-3aq3-238a-2ru6-80zop599969x x68i260n-7gs7-057w-8ke7-65avq390529l [facility]-Medicaid [id number]-[id number] ANSIFilip TechnologiesCommercial 448x69qr-3v1z-9i26-f206-49q7g0v6d95u 776x17by-9j3j-3q07-a932-44h5f7s1i97e ANSIFilip TechnologiesMedicaid [id number]-[id number] xmyoh5c9-3975-1538-pg01-07gq935r4857 [employer] 7652ny1j-n96r-35p0-1260-0993122pu4x5 9459yb8f-q58w-91a0-6921-1562465kw4k7 ANSI-Medicaid jw3ug6at-u7oz-79o3-[id number] un0nu0zw-p5fr-39i1-u7n8-tx079zw457u1 [employer] 25268y6t-4g89-48lb-4444-7897f74767c7 89050o4g-2q04-30ur-2526-6017d61063r2 ANSI-Medicaid 525x618e-vw5l-705x-huc3-o4x5b85x1j7a 957o046f-jw9s-097p-cru6-q9s3y62w0g7g [employer] hn7240zb-8o35-4dls-3j29-sb64ie10kr0j yi5035xi-9p38-3rtm-9q43-oa29or85hc9x [facility]-Medicaid [id number]-v126-2062-n54u-[id number] 905sbi73-f595-6823-x46q-av12n97792l0 ANSI-Medicaid [id number]-36v4-4m2g-l11z-n1e17sh0a7l5 2469539y-14u8-1m2p-j74r-j2s59ov8t0i0 [employer] 6sew4r73-98r3-78oo-ta0g-0n0441j0jj30 3yah5o13-09n8-72bw-zk5x-3n9619y9lx48 ANSI-Medicaid [id number]-tetu-2619-nw76-[id number] [id number]-sgzk-6142-cp54-mpf9l119lu7w [employer] 6p332345-8p95-9r08-i938-rt9nld68q25b 9w776994-1r15-7s81-r215-fh0xog91h84k ANSI-Commercial a9f583q4-zb43-0sds-i591-h25452x01748 j6z863r9-lj32-8miq-d507-p44003r60009 ANSI-Medicaid [id number]-wjz4-dc192gs9f3l8 f954hj23-3tq2-3v46-lsk3-wp591eu6c2f3 ANSI-Medicaid [id number]-c876-32l9-b2tb-8q080bz0gbiz 2433y980-c477-53c3-w7bz-6r276xm6ozft ANSI-Commercial 8zn2220f-4v50-6yj7-a35r-9ri1953op104 7mr3410q-1h33-6cd4-x10g-3rj8589yb004 ANSI-Commercial 186832b8-8cb9-3633-np4j-r2387x97095g 864881m7-3tf5-8906-jb8v-m8980d09420a ANSI-Medicaid [id number]-[id number]-m484-1jp7hq268753 ANSI-Medicaid [id number]-v022-l61kf797o24g br0487w2-8001-1889-b199-u28im184k43r ANSI-Medicaid [id number]-vxj7-65wt-16dn-[id number] r3c2dh46-twc0-63sx-29rq-8r739c91j820 ANSI-Commercial pbga91sc-1qm1-83kh-pkh7-m50q0e73sej3 ztux06ql-6xl5-23mm-gid3-t35f8t84ryy6 ANSI-Commercial u8q47hvo-rg03-2025-627d-5387002mj061 p9g80djn-yw55-0963-715b-3316751mr096 ANSI-Commercial 9v2120s7-x11s-7w93-424g-22ydm3d88278 1j5780w4-b29k-1x64-704s-89wvr8w68911 ANSI-Medicaid [id number]-2639-09ta-k912-40wv40v02722 ANSI-Medicaid 42z6w0b0-689c-0920-q4nd-y6oi6z33cz7t 39w5o6y7-650d-9464-b4ws-u9xr0o78yl8m ANSI-Commercial 306spwvq-e500-889gn481-898d-3e23-bvap4j1g6d57 250tvavg-t601-392bt537-253d-0c42-pkll9w6w4p88 ANSI-Medicaid [id number]-9n73-[id number]-536e-4f51-x199-5dtjz6uz49y6 ANSI-Commercial ft02504c-2322-1755-2139-h545z545qa32 ef18432t-6424-6830-0919-h417y172bh83 ANSI-Medicaid [id number]-00b0-8155-[id number] 02c4l2t4-1cot-59u4-3049-c66m353o2j0k ANSI-Commercial nt22o716-20w6-2l34-224p-6570gs885td6 ky49v287-09w6-0b30-826i-1897vo493vj8 ANSI-Medicaid [id number]-[id number] 92mj02z0-7214-3i0i-y335-46777673m96a ANSI-Commercial 6n3l5790-8xh3-9635-q956-88hh2n202174 5z1q3786-3mj7-7277-j395-66rx2n162037 ANSI-Medicaid [id number]-x94a-[id number] 7959il6f-n33z-4gm3-5650-we36a89yixr1 ANSI-Commercial 7x659h60-rnf6-31j2-32o1-uo8gn4k19432 9c361i97-nef2-31z2-84l0-fh1gn7v57490 ANSI-Medicaid [id number]-[id number] ANSI-Commercial 3ny97p8v-0727-137r-s7k6-ab58o3ak935m 0ak18i5u-4035-528z-y4d0-vb95m2xq001f ANSI-Medicaid [id number] ANSI-Commercial y293ibnv-14t3-71u3-u5kp-258481r0255t s414ywls-12w3-26k7-d9dx-645402n7227c ANSI-Medicaid [id number] ANSI-Medicaid [id number] ANSI-Commercial 6484i5s1-c11s-4f89-7lck-q54sc70ff5ny 1696l6s7-t05j-8c12-0muw-o06pa03so6rg ANSI-Commercial o3v13l49-o1vw-4zcf-4tvm-89571y2p4x51 p7n74p19-m1rq-6bjt-0jtu-23742a7h7j99 ANSI-Medicaid [id number] [id number]-u84x-59bz-[id number] ANSI-Commercial oy1qq3h0-t805-853b-z905-154a18fs2706 ml2bo0e2-b965-432i-q834-599b40dx0828 ANSI-Commercial q2808r49-4497-2722-aq30-7986zr0z57ju r3040e48-5621-4184-eb65-3918ce9b11cr ANSI-Medicaid [id number]-[id number] ANSI-Medicaid [id number]-v228-29uj-5u2e-8ob2bd1xq388 [employer]-Medicaid [id number] [employer] 87p466u2-4d91-5623-y491-569i10m92358 70n149a8-9f15-3784-h435-890z10j00810 [employer]IF[employer] TechnologiesCommercial eoc9q3j5-9679-7v92-htj1-84c1x2g7k073 qoq9i5l7-3591-1q33-llg2-75t6h8s8g710 [employer] 4333z7l9-006n-690w-8726-7y29b3v6642g 9271o1x7-959o-325h-2836-5u40l6r9439v ANSI-Medicaid [id number] [employer]Commercial 664d0b85-w97j-1g07-8x8z-2h503gt8f6i1 314q1b80-l54n-4l58-7j8n-1z506cj5m4d8 ANSI-Medicaid [id number] [facility]-Commercial 55u07325-q86g-5q75-7zw6-yuq8uwvtq4oc 07n19265-h83d-9y76-7gi3-srb6hklyv2id [facility]-Medicaid [id number]-3xbc-[id number] [facility]-Medicaid [id number] ANS-[facility] 11859soi-9qm1-5504-wq6o-9oha9a44d899 72138uyz-7nf5-7883-rb5b-2zig9y37p955 [facility]-Commercial 8dni9r3b-n157-70k0-88o9-62b9687t0m03 4cjq2h1s-m677-19o0-76f3-85u6856z4b94 ANSI-Medicaid [id number] ANSI-Medicaid [id number] ANS-Commercial 8c182e27-6030-7t47-1832-9a66189240ky 3l103p31-0662-8n38-7552-4e41733558vl [facility]-Medicaid [id number] [facility]-Medicaid [id number] ANSI-Commercial o54k1l30-q250-662y-y897-eb9050b200c4 r56f6u33-k212-580m-o401-mf6615x952a8 ANSI-Commercial 02692p4u-83ts-359a-19p2-32jf3703585l 15120r9r-81fy-681g-20e3-98ax1227787p ANSI-Commercial 5950870t-3363-1108-o8d7-9e36017uc81x 4781391n-3493-7868-h4k0-9x92092vu33v ANSI-Commercial h50m70gm-840q-0jek-r612-5a954j17612j c10e19om-846w-0kqj-t562-6n689k35609q ANSI-Medicaid [id number] ANSI-Medicaid [id number] ANSI-Medicaid [id number] ANSI-Commercial 7930s4v4-6kh2-4390-8k3s-548c89s64p69 7508m5f6-2nx9-2091-8p5s-058p22k49t19 ANSI-Commercial 55le845e-9y01-4911-32e0-3395h8k32ufh 51ql322r-9x92-6442-35m9-7264j8c41lsl ANSI-Medicaid [id number] [facility] [id number] ANSI-Commercial k0i71q84-y182-05r0-n8n1-97240643dv03 f7y46c64-a138-99p4-i2d1-92630794as70 ANSI-Commercial n5yz9070-wj60-0365-b7a7-6dpp4t8989kq d5km9585-ca16-0377-g4d0-4jbb3w3576hq [facility] [id number] [facility] [id number] [facility]Com[facility] 1m3wtwck-s4zp-168u-8802-3q11705a35z7 5w5zspoa-m7wv-897y-1516-3y31507w44k2 [facility] [id number] ANSI-Commercial d0q46573-10z8-9141-435d-k33977379pg6 o7p92782-69p7-1464-911v-z53373131ar7 ANSI-Commercial 4q676gu5-3k20-4t8v-rc6o-0unf11678bra 5c388py7-0h16-3s0q-gs0x-3sqc75539kny [facility] [id number]-4q54-s7id-[id number] ANSI-Commercial 175m98pm-geq8-16n1-gf78-357s9fl7916g 059a87qb-tdh7-25w2-bd39-987a9xj7988y [facility]-Medicaid [id number] [facility]-Medicaid [id number] ANSI-Commercial 0h5o7l57-87x7-5f4v-i3y1-n9crd749a771 2n5k2s55-82r4-3p6s-c6f7-c1isc151q141 ANSI-Commercial qhlz8h9q-y032-43mj-9p8n-9371yz62rn0s wcus7q3y-k661-78xy-4k8e-8535xg91cy4t [facility]-Medicaid [id number] ANSI-Commercial vvord566-hs71-6h36-223z-x759idu3sn79 vzunl962-xo91-9h77-581m-j582mro4ei16 ANSI-Commercial rn47q17c-gh82-160b-7v78-mqr1354u6c3j ow96k18m-oz12-256n-1f44-rto6302s1z1f [facility]-Medicaid [id number] [facility]-Medicaid [id number] [facility]-Medicaid [id number] [facility]-Commercial 343p5w41-cn4v-6829-3539-386op31i5t48 419y5s21-sh2q-3244-0835-948eo80l0g30 [facility]-Medicaid [id number] Problems, Conditions, and Diagnoses Code Display Name Description Problem Type Effective Dates Data Source(s) I89.0 301018869 Lymphedema Problem 09/10/2020 12:00:00 AM ES T eCW1 ([facility]) M81.0 94931546 Age-related osteoporosis without current pathological fracture Problem 07/09/2020 12:00:00 AM EDT eCW1 ([facility]) 149813831 Chronic diastolic heart failure Chronic diastoli c heart failure Problem 04/02/2020 12:00:00 AM EDT MEDENT ([facility]) 710388094 Edema Edema Problem 04/02/2020 12:00:00 AM ED T MEDENT ([facility]) 300352742 Electrocardiogram abnormal Electrocardiogram abnormal Problem 04/02/2020 12:00:00 AM EDT MEDENT ([facility]) 341364277 Dietary management surveillance Dietary manageme nt surveillance Problem 04/02/2020 12:00:00 AM EDT [facility] ([facility]) 833912118 Paroxysmal atrial fibrillation Paroxysmal atrial fibri llation Problem 04/02/2020 12:00:00 AM EDT MEDENT ([facility]) I50.32 Chronic diastolic heart failure Chronic diastolic hear t failure Problem 12/07/2019 12:00:00 AM EDT eCW1 ([facility]) J31.0 14301165 Chronic rhinitis Problem 12/07/2019 12:00:00 AM EDT eCW1 ([facility]) J31.0 27429904 Chronic rhinitis Problem 12/07/2019 12:00:00 AM EDT eCW1 ([facility]) I50.32 Chronic diastolic heart failure Chronic diastolic hear t failure Problem 12/07/2019 12:00:00 AM EDT eCW1 ([facility]) J96.11 527881505 Chronic respiratory failure with hypoxia Problem 09/23/2019 12:00:00 AM EST eCW1 ([facility]) D73.1 49836585 Hypersplenism Problem 09/23/2019 12:00:00 AM EST eCW1 ([facility]) D61.818 595783403 Pancytopenia Problem 09/23/2019 12:00:00 AM EST eCW1 ([facility]) I48.91 64458121 Atrial fibrillation, unspecified type Pro blem 09/23/2019 12:00:00 AM EST eCW1 ([facility]) Z87.01 489523468 Hx of bacterial pneumonia Problem 09/23/2019 12:00:00 AM EST eCW1 ([facility]) Z87.19 319991461 H/O: UGI bleed Problem 09/23/2019 12:00:00 A M EST eCW1 ([facility]) J96.11 107952712 Chronic respiratory failure with hypoxia Problem 09/23/2019 12:00:00 AM EST eCW1 ([facility]) D73.1 03628894 Hypersplenism Problem 09/23/2019 12:00:00 AM EST eCW1 ([facility]) D61.818 932215779 Pancytopenia Problem 09/23/2019 12:00:00 AM EST eCW1 ([facility]) I48.91 87002498 Atrial fibrillation, unspecified type Pro blem 09/23/2019 12:00:00 AM EST eCW1 ([facility]) Z87.01 968628218 Hx of bacterial pneumonia Problem 09/23/2019 12:00:00 AM EST eCW1 ([facility]) Z87.19 413909140 H/O: UGI bleed Problem 09/23/2019 12:00:00 A M EST eCW1 ([facility]) Surgeries/Procedures Procedure Description Date Indications Data Source(s) Immunization: Flublok Quadrivalent (18 years & older) 0.5mL IM (Influenza) 07/09/2020 12:00:00 AM EDT eCW1 ([facility]) ECG ROUTINE ECG W/LEAST 12 LDS W/I&R 04/02/2020 12:00: 00 AM EDT MEDENT ([facility]) Albuterol, up to 2.5 mg and ipratropium bromide, up to 0.5 mg, fda-approved final product, non-compounded, administered through dme 08/23/2019 12:00:00 AM EST eCW1 ([facility]) AIRWAY INHALATION TREATMENT 08/23/2019 12:00:00 AM EST eCW1 ([facility]) RADEX HAND MINIMUM 3 VIEWS 08/03/2019 12:00:00 AM EST MEDENT ([facility]) Results ID Date Data Source [id number] 09/19/2020 10:41:00 PM EST [facility] Name Value Range Interpretation Code Description Data Skyla rce(s) Supporting Document(s) SARS coronavirus 2 RNA [Presence] in Res piratory specimen by CHARLES with probe detection NEGATIVE [facility] This lab was ordered by [facility] a nd reported by [facility]. ID Date Data Source LACTIC ACID LEVEL, LACTATE 09/10/2020 12:00:00 AM EST eCW1 ( [facility] [facility]) Name Value Range Interpretation Code Description Data Skyla rce(s) Supporting Document(s) LACTIC ACID LEVEL, LACTATE eCW 1 ([facility]) ID Date Data Source C REACTIVE PROTEIN QUANTITATIV (At [facility]) 09/10/2020 12:00 :00 AM EST eCW1 ([facility], [facility]) Name Value Range Interpretation Code Description Data Skyla rce(s) Supporting Document(s) 0.66 0.00-0.30 C REACTIVE PROTEIN QUANTI TATIV eCW1 ([facility], [facility]) ID Date Data Source Comprehensive Metabolic Profile (CMP) 09/10/2020 12:00:00 AM EST eCW1 ([facility], [facility]) Name Value Range Interpretation Code Description Data Skyla rce(s) Supporting Document(s) 82 70-100 GLUCOSE, FASTING eCW1 ([facility]) 14 7-18 BLOOD UREA NITROGEN eCW1 ([facility]) 0.78 0.55-1.30 CREATININE FOR GFR eCW1 ([facility]) 4.1 3.5-5.1 POTASSIUM SERUM eCW1 ([facility]) 139 136-145 SODIUM LEVEL eCW1 ([facility]) > 60.0 >45 GLOMERULAR FILTRATION RATE eCW 1 ([facility], [facility]) 108 98-107 CHLORIDE LEVEL eCW1 ([facility], [facility]) 9.0 8.8-10.2 CALCIUM LEVEL eCW1 ([facility]) 28 21-32 CARBON DIOXIDE LEVEL eCW1 ([facility]) 113 45-117 ALKALINE PHOSPHATASE eCW1 ([facility]) 18 12-78 ALT/SGPT eCW1 ([facility]) 31 7-37 AST/SGOT eCW1 ([facility]) 3.2 3.2-5.2 ALBUMIN eCW1 ([facility]) 5.9 6.4-8.2 TOTAL PROTEIN eCW1 ([facility], [facility]) 1.0 0.2-1.0 BILIRUBIN,TOTAL eCW1 ([facility]) 1.2 1.2-2.2 ALBUMIN/GLOBULIN RATIO eCW1 ([facility]) ID Date Data Source CBC with Differential 09/10/2020 12:00:00 AM EST eCW1 ([facility]) Name Value Range Interpretation Code Description Data Skyla rce(s) Supporting Document(s) 3.2 4.0-10.0 WHITE BLOOD COUNT eCW1 ([facility]) 3.38 4.00-5.40 RED BLOOD COUNT eCW1 ([facility]) 9.5 12.0-15.5 HEMOGLOBIN eCW1 ([facility]) 33.0 36.0-47.0 HEMATOCRIT eCW1 ([facility]) 28.1 27.0-33.0 MEAN CORPUSCULAR HEMOGLOB IN eCW1 ([facility], [facility]) 97.6 80.0-96.0 MEAN CORPUSCULAR VOLUME e CW1 ([facility], [facility]) 16.2 11.5-14.5 RED CELL DISTRIBUTION WID TH eCW1 ([facility], [facility]) 28.8 32.0-36.5 MEAN CORPUSCULAR HGB CONC eCW1 ([facility], [facility]) 61 150-450 PLATELET COUNT, AUTOMATED eCW1 ([facility], [facility]) 74.2 36.0-66.0 NEUTROPHILS % eCW1 ([facility]) 16.8 24.0-44.0 LYMPH % eCW1 ([facility]) 5.9 0.0-5.0 MONO % eCW1 ([facility]) 2.2 0.0-3.0 EOS % eCW1 ([facility]) 0.3 0.0-1.0 BASO % eCW1 ([facility]) 2.4 1.5-8.5 NEUTROPHILS # eCW1 ([facility]) 0.5 1.5-5.0 LYMPH # eCW1 ([facility]) 0.2 0.0-0.8 MONO # eCW1 ([facility]) 0.0 0.0-0.2 BASO # eCW1 ([facility]) 0.1 0.0-0.5 EOS # eCW1 ([facility]) ID Date Data Source [id number] 03/21/2020 02:19:00 PM EDT [facility] ([facility]) Name Value Range Interpretation Code Description Data Skyla rce(s) Supporting Document(s) Calcium [Mass/volume] in Serum or Plasma 9.0 MEDENT ([facility]) Albumin [Mass/volume] in Serum or Plasma 3.0 MEDENT ([facility]) Alanine aminotransferase [Enzymatic activity/volume] in Serum or Pl asma 21 MEDENT ([facility]) Chloride [Moles/volume] in Serum or Plasma 113 MEDENT ([facility]) Carbon dioxide, total [Moles/volume] in Serum or Plasma 25 MEDENT ([facility]) Potassium [Moles/volume] in Serum or Plasma 3.8 MEDENT ([facility]) Alkaline phosphatase [Enzymatic activity/volume] in Serum or Plasma 1 02 [facility] ([facility]) Protein [Mass/volume] in Serum or Plasma 5.8 [facility] ([facility]) Sodium 143 [facility] ([facility] Aspartate aminotransferase [Enzymatic activity/volume] in Serum or Plasma 27 [facility] ([facility]) Creatinine For GFR 0.72 MEDENT ([facility]) Urea nitrogen [Mass/volume] in Serum or Plasma 18 [facility] ([facility]) Glucose 97 70-100 [facility] ([facility]) ID Date Data Source [id number] 03/21/2020 02:19:00 PM EDT [facility] ([facility]) Name Value Range Interpretation Code Description Data Skyla rce(s) Supporting Document(s) White Blood Count 3.7 4.0-10.0 [facility] ([facility]) Red Blood Count 3.96 4.00-5.40 [facility] ([facility]) Hemoglobin 13.1 [facility] ([facility]) Platelets 61 150-450 [facility] ([facility]) Hematocrit 39.9 MED[facility] ([facility]) ID Date Data Source [id number] 02/13/2020 09:38:00 AM EDT [facility] ([facility]) Name Value Range Interpretation Code Description Data Skyla rce(s) Supporting Document(s) Hepatitis A virus IgG Ab [Units/volume] in Serum Laboratory test result Abnormal (applies to non-numeric results) [facility] ([facility], ) Performed at: RN - [facility] [address] [id number] Psychiatry Teacher: Selene Garrido MD, Phone: [phone] Hepatitis B virus surface Ab [Presence] in Serum by mey Laboratory test result Normal (applies to non-numeric results) [facility] ([facility]) Mozkj-0-Cqikpgagrku [Mass/volume] in Serum or Plasma 4.4 ng/mL Normal (applies to non-numeric results) [facility] ([facility]) THE AFP ASSAY IS PERFORMED ON THE 365netR BY CHEMILUMINESCENCE AND SHOULD NOT BE COMPARED [...] % 0.0-9.59 Normal (applies to non-numeric results) [facility]) ID Date Data Source [id number] 02/13/2020 09:38:00 AM EDT [facility]) Name Value Range Interpretation Code Description Data Skyla rce(s) Supporting Document(s) Creatinine For GFR 0.74 mg/dL 0.55-1.30 Normal (applies to non -numeric results) [facility] ([facility]) Glomerular Filtration Rate Laboratory test result Normal (applies to non- numeric results) [facility]) <content>Units are mL/min/1.73 m2</content>
<content></content>
<content>Chronic Kidney Disease Staging per NKF:</content>
<content></content>
<content>Stage I & II GFR >=60 Normal to Mildly Decreased</content>
<content>Stage III GFR 30- 59 Moderately Decreased</content>
<content>Stage IV GFR 15-29 Severely Decreased</content>
<content>Stage V GFR <15 Very Little GFR Left</content>
<content>ESRD GFR <15 on [employer]</content>
<content></content> ID Date Data Source [id number] 02/13/2020 09:38:00 AM EDT [facility]) Name Value Range Interpretation Code Description Data Skyla rce(s) Supporting Document(s) Urea nitrogen [Mass/volume] in Serum or Plasma 17 mg/dL 7 -18 Normal (applies to non-numeric results) [facility]) ID Date Data Source [id number] 02/13/2020 09:38:00 AM EDT [facility]) Name Value Range Interpretation Code Description Data Skyla rce(s) Supporting Document(s) Inr 1.22 Normal (applies to non-numeric resul ts) [facility] ([facility]) THERAPUTIC HUMAN INR VALUES INDICATIONS NORMAL RANGES PROPHYLAXIS/TREATMENT OF: VENOUS THROMBOSIS 2.0-3.0 PULMONARY EMBOLISM 2.0-3.0 PREVENTION OF SYSTEMIC EMBOLISM FROM: TISSUE HEART VALVES 2.0-3.0 ACUTE MYOCARDIAL INFARCTION 2.0-3.0 VALVULAR HEART DISEASE 2.0-3.0 ATRIAL FIBRILLATION 2.0-3.0 MECHANICAL VALVES(HIGH RISK) 2.5-3.5 RECURRENT MYOCARDIAL INFARCTION 2.5-3.5 Prothrombin Time 15.1 s 11.8-14.0 Above high normal M [facility]) Partial Thromboplastin Time 30.4 s 25.0-38.4 Norm al (applies to non-numeric results) [facility]) ID Date Data Source [id number] 02/13/2020 09:38:00 AM EDT [facility]) Name Value Range Interpretation Code Description Data Skyla rce(s) Supporting Document(s) Total Iron Binding Capacity 345 ug/dL 250-450 Norm al (applies to non-numeric results) [facility] ([facility]) Iron (Fe) 127 ug/dL 50-170 Normal (applies to non-numeric resul ts) [facility] ([facility]) Percent Saturation 36.8 % 13.2-45.0 Normal (applies to non-numer ic results) [facility]) ID Date Data Source [id number] 02/13/2020 09:38:00 AM EDT [facility]) Name Value Range Interpretation Code Description Data Skyla rce(s) Supporting Document(s) Ferritin [Mass/volume] in Serum or Plasma 19 ng/mL 8-252 Normal (applies to non- numeric results) [facility]) ID Date Data Source [id number] 02/13/2020 09:38:00 AM EDT [facility]) Name Value Range Interpretation Code Description Data Skyla rce(s) Supporting Document(s) Red Blood Count 4.17 10 4.00-5.40 Normal (applies to non-numeric results) [facility] ([facility]) White Blood Count 3.4 10 4.0-10.0 Below low normal M EDENT ([facility]) Hemoglobin 13.2 g/dL 12.0-15.5 Normal (applies to non-numeric resul ts) [facility] ([facility]) Mean Corpuscular Hemoglobin 31.7 pg 27.0-33.0 Norm al (applies to non-numeric results) [facility] ([facility]) Hematocrit 41.2 % 36.0-47.0 Normal (applies to non-numeric resul ts) [facility]) Mean Corpuscular Volume 98.8 fl 80.0-96.0 Above high normal [facility] Platelet Count, Automated 63 10 150-450 Below low normal [facility] ([facility]) Mean Corpuscular HGB Conc 32.0 g/dL 32.0-36.5 Normal (applies to non-numeric results) [facility] ([facility]) Red Cell Distribution Width 14.6 % 11.5-14.5 Above high normal [facility] ([facility]) Eos % 5.7 % 0.0-3.0 Above high normal [facility] ([facility]) [place] % 6.5 % 0.0-5.0 Above high normal [facility] ([facility]) Lymph % 20.2 % 24.0-44.0 Below low normal [facility] ( [facility]) Neutrophils % 67.0 % 36.0-66.0 Above high normal MEDE NT ([facility]) Nucleated Red Blood Cell % 0.0 % 0-0 Normal (applies to n on-numeric results) [facility] ([facility]) Immature Granulocyte % 0.3 % 0-3.0 Normal (applies to non-n umeric results) [facility] Baso % 0.3 % 0.0-1.0 Normal (applies to non-numeric resul ts) [facility] ([facility]) Lymph # 0.7 10 1.5-5.0 Below low normal [facility] ( [facility]) Eos # 0.2 10 0.0-0.5 Normal (applies to non-numeric resul ts) [facility]) [place] # 0.2 10 0.0-0.8 Normal (applies to non-numeric resul ts) [facility] ([facility]) Neutrophils # 2.3 10 1.5-8.5 Normal (applies to non-numeric re sults) [facility] ([facility]) Baso # 0.0 10 0.0-0.2 Normal (applies to non-numeric resul ts) [facility]) ID Date Data Source [id number] 10/10/2019 02:04:00 PM EST [facility]) Name Value Range Interpretation Code Description Data Skyla rce(s) Supporting Document(s) Arbru-5-Szfgdtlnfeu [Mass/volume] in Serum or Plasma 4.4 ng/mL Normal (applies to non-numeric results) [facility]) THE AFP ASSAY IS PERFORMED ON THE 365netR BY CHEMILUMINESCENCE AND SHOULD NOT BE COMPARED [...] % 0.0-9.59 Normal (applies to non-numeric results) [facility] ([facility]) Blood group antibodies identified in Serum or Plasma Laboratory test result Normal (applies to non-numeric results) [facility]) ID Date Data Source [id number] 10/10/2019 02:04:00 PM EST [facility]) Name Value Range Interpretation Code Description Data Skyla rce(s) Supporting Document(s) Prothrombin Time 14.6 s 11.8-14.0 Above high normal M EDENT ([facility]) Partial Thromboplastin Time 29.7 s 25.0-38.4 Norm al (applies to non-numeric results) [facility] ([facility]) Inr 1.17 Normal (applies to non-numeric resul ts) [facility]) THERAPUTIC HUMAN INR VALUES INDICATIONS NORMAL RANGES PROPHYLAXIS/TREATMENT OF: VENOUS THROMBOSIS 2.0-3.0 PULMONARY EMBOLISM 2.0-3.0 PREVENTION OF SYSTEMIC EMBOLISM FROM: TISSUE HEART VALVES 2.0-3.0 ACUTE MYOCARDIAL INFARCTION 2.0-3.0 VALVULAR HEART DISEASE 2.0-3.0 ATRIAL FIBRILLATION 2.0-3.0 MECHANICAL VALVES(HIGH RISK) 2.5-3.5 RECURRENT MYOCARDIAL INFARCTION 2.5-3.5 ID Date Data Source [id number] 10/10/2019 02:04:00 PM EST [facility] ([facility]) Name Value Range Interpretation Code Description Data Skyal rce(s) Supporting Document(s) Blood Type Laboratory test result Normal (applies to non-n umeric results) [facility] ([facility]) Blood group antibody screen [Presence] in Serum or Prasad sma Laboratory test result Normal (applies to non-numeric results) [facility]) ID Date Data Source [id number] 10/10/2019 02:04:00 PM EST [facility] ([facility]) Name Value Range Interpretation Code Description Data Skyla rce(s) Supporting Document(s) Glomerular Filtration Rate Laboratory test result Normal (applies to non- numeric results) [facility]) <content>Units are mL/min/1.73 m2</content>
<content></content>
<content>Chronic Kidney Disease Staging per NKF:</content>
<content></content>
<content>Stage I & II GFR >=60 Normal to Mildly Decreased</content>
<content>Stage III GFR 30- 59 Moderately Decreased</content>
<content>Stage IV GFR 15-29 Severely Decreased</content>
<content>Stage V GFR <15 Very Little GFR Left</content>
<content>ESRD GFR <15 on [employer]</content>
<content></content> Creatinine For GFR 0.83 mg/dL 0.55-1.30 Normal (applies to non -numeric results) [facility] ([facility]) ID Date Data Source [id number] 10/10/2019 02:04:00 PM EST [facility] ([facility]) Name Value Range Interpretation Code Description Data Skyla rce(s) Supporting Document(s) Urea nitrogen [Mass/volume] in Serum or Plasma 17 mg/dL 7 -18 Normal (applies to non-numeric results) [facility] ([facility]) ID Date Data Source [id number] 10/10/2019 02:04:00 PM EST [facility] ([facility]) Name Value Range Interpretation Code Description Data Skyla rce(s) Supporting Document(s) White Blood Count 4.0 10 4.0-10.0 Normal (applies to non-numeri c results) [facility] ([facility]) Red Blood Count 4.00 10 4.00-5.40 Normal (applies to non-numeric results) [facility] ([facility]) Mean Corpuscular Volume 90.3 fl 80.0-96.0 Normal ( applies to non-numeric results) [facility] ([facility]) Hemoglobin 10.1 g/dL 12.0-15.5 Below low normal [facility] ( [facility]) Hematocrit 36.1 % 36.0-47.0 Normal (applies to non-numeric resul ts) [facility] ([facility]) Red Cell Distribution Width 18.3 % 11.5-14.5 Above high normal [facility] ([facility]) Mean Corpuscular Hemoglobin 25.3 pg 27.0-33.0 Below low normal [facility] ([facility]) Mean Corpuscular HGB Conc 28.0 g/dL 32.0-36.5 Below low normal [facility] ([facility]) Platelet Count, Automated 85 10 150-450 Below low normal [facility] ([facility]) Lymph % 26.1 % 24.0-44.0 Normal (applies to non-numeric resul ts) [facility] ([facility]) Neutrophils % 63.6 % 36.0-66.0 Normal (applies to non-numeric re sults) [facility] ([facility]) [place] % 5.5 % 0.0-5.0 Above high normal [facility] ([facility]) Baso % 0.5 % 0.0-1.0 Normal (applies to non-numeric resul ts) [facility] ([facility]) Nucleated Red Blood Cell % 0.0 % 0-0 Normal (applies to n on-numeric results) [facility] ([facility]) Eos % 4.0 % 0.0-3.0 Above high normal [facility] ([facility]) Immature Granulocyte % 0.3 % 0-3.0 Normal (applies to non-n umeric results) [facility] ([facility]) Neutrophils # 2.5 10 1.5-8.5 Normal (applies to non-numeric re sults) [facility] ([facility]) [place] # 0.2 10 0.0-0.8 Normal (applies to non-numeric resul ts) [facility] ([facility]) Lymph # 1.0 10 1.5-5.0 Below low normal [facility] ( [facility]) Baso # 0.0 10 0.0-0.2 Normal (applies to non-numeric resul ts) [facility] ([facility]) Eos # 0.2 10 0.0-0.5 Normal (applies to non-numeric resul ts) [facility] ([facility]) Procedure Social History Code Duration Value Status Description Data Source(s ) Smoking 09/10/2020 12:00:00 AM EST Never Smoker completed Never S moker eCW1 ([facility]) Smoking 09/10/2020 12:00:00 AM EST Never Smoker completed Never S moker eCW1 ([facility], [facility]) Smoking 08/21/2020 12:00:00 AM EST Never Smoker completed Never S moker eCW1 ([facility], [facility]) Smoking 08/21/2020 12:00:00 AM EST Never Smoker completed Never S moker eCW1 ([facility], [facility]) Smoking 08/21/2020 12:00:00 AM EST Never Smoker completed Never S moker eCW1 ([facility], [facility]) Smoking 08/21/2020 12:00:00 AM EST Never Smoker completed Never S moker eCW1 ([facility]) Smoking 07/09/2020 12:00:00 AM EDT Never Smoker completed Never S moker eCW1 ([facility]) Smoking 07/09/2020 12:00:00 AM EDT Never Smoker completed Never S moker eCW1 ([facility]) Smoking 07/09/2020 12:00:00 AM EDT Never Smoker completed Never S moker eCW1 ([facility]) Smoking 07/09/2020 12:00:00 AM EDT Never Smoker completed Never S moker eCW1 ([facility]) Smoking 04/02/2020 12:00:00 AM EDT Patient has never smoked co mpleted Patient has never smoked [facility] ([facility]) Smoking 03/21/2020 12:00:00 AM EDT Never Smoker completed Never S moker eCW1 ([facility]) Smoking 03/21/2020 12:00:00 AM EDT Never Smoker completed Never S moker eCW1 ([facility]) Smoking 03/21/2020 12:00:00 AM EDT Never Smoker completed Never S moker eCW1 ([facility]) Smoking 02/15/2020 12:00:00 AM EDT Never Smoker completed Never S moker eCW1 ([facility]) Smoking 02/15/2020 12:00:00 AM EDT Never Smoker completed Never S moker eCW1 ([facility]) Vital Signs ID Date Data Source UNK Name Value Range Interpretation Code Description Data Source(s) Diastolic blood pressure 68 mm[Hg] 68 mm[Hg] eCW1 ([facility]) Systolic blood pressure 110 mm[Hg] 110 mm[Hg] e CW1 ([facility]) Body temperature 96.6 [degF] 96.6 [degF] eCW1 ( [facility]) Respiratory rate 20 /min 20 /min eCW1 ([facility]) Heart rate 73 /min 73 /min eCW1 ([facility]) Body mass index (BMI) [Ratio] 64.53 kg/m2 64.53 kg/m2 W1 ([facility]) Body height 64 [in_i] 64 [in_i] eCW1 ([facility]) Body weight 376 [lb_av] 376 [lb_av] eCW1 ([facility]) Diastolic blood pressure 78 mm[Hg] 78 mm[Hg] eCW1 ([facility]) Systolic blood pressure 130 mm[Hg] 130 mm[Hg] e CW1 ([facility]) Body temperature 96.3 [degF] 96.3 [degF] eCW1 ( [facility]) Respiratory rate 20 /min 20 /min eCW1 ([facility]) Heart rate 99 /min 99 /min eCW1 ([facility]) Body mass index (BMI) [Ratio] 62.82 kg/m2 62.82 kg/m2 eCW1 ([facility]) Body height 64 [in_i] 64 [in_i] eCW1 ([facility]) Body weight 366 [lb_av] 366 [lb_av] eCW1 ([facility]) Diastolic blood pressure 76 mm[Hg] 76 mm[Hg] eCW1 ([facility]) Systolic blood pressure 130 mm[Hg] 130 mm[Hg] e CW1 ([facility]) Body temperature 96.9 [degF] 96.9 [degF] eCW1 ( [facility]) Respiratory rate 20 /min 20 /min eCW1 ([facility]) Heart rate 67 /min 67 /min eCW1 ([facility]) Body mass index (BMI) [Ratio] 61.10 kg/m2 61.10 kg/m2 eCW1 ([facility]) Body height 64 [in_i] 64 [in_i] eCW1 ([facility]) Body weight 356 [lb_av] 356 [lb_av] eCW1 ([facility]) Body weight 149.688 kg 149.688 kg [facility] ([facility]) Body mass index (BMI) [Ratio] 56.6 kg/m2 56.6 k g/m2 [facility] ([facility]) Body weight 330.00 [lb_av] 330.00 [lb_av] MEDEN T ([facility]) Body height 64 [in_i] 64 [in_i] [facility] ([facility]) 5'4" Oxygen saturation in Arterial blood by Pulse oximetry 89 % 89 % [facility] ([facility]) 96 2L Heart rate 60 /min 60 /min [facility] ([facility]) Diastolic blood pressure 66 mm[Hg] 66 mm[Hg] [facility] ([facility]) Systolic blood pressure 108 mm[Hg] 108 mm[Hg] M [facility]ENT ([facility]) Body mass index (BMI) [Ratio] 56.6 kg/m2 56.6 k g/m2 [facility] ([facility]) Body height 64 [in_i] 64 [in_i] [facility] ([facility]) 5'4" Body weight 330.00 [lb_av] 330.00 [lb_av] MEDEN T ([facility]) Diastolic blood pressure 68 mm[Hg] 68 mm[Hg] [facility] ([facility]) sitting, large cuff Systolic blood pressure 126 mm[Hg] 126 mm[Hg] M EDENT ([facility]) sitting, large cuff Respiratory rate 16 /min 16 /min [facility] ( [facility]) Heart rate 72 /min 72 /min [facility] ([facility]) Regular Diastolic blood pressure 76 mm[Hg] 76 mm[Hg] eCW1 ([facility]) Systolic blood pressure 128 mm[Hg] 128 mm[Hg] e CW1 ([facility]) Body temperature 97.1 [degF] 97.1 [degF] eCW1 ( [facility]) Respiratory rate 20 /min 20 /min eCW1 ([facility]) Heart rate 66 /min 66 /min eCW1 ([facility]) Body mass index (BMI) [Ratio] 60.76 kg/m2 60.76 kg/m2 eCW1 ([facility]) Body height 64 [in_i] 64 [in_i] eCW1 ([facility]) Body weight 354.0 [lb_av] 354.0 [lb_av] eCW1 ([facility]) Body weight 162.842 kg 162.842 kg MED[facility] ([facility], ) Body mass index (BMI) [Ratio] 61.6 kg/m2 61.6 k g/m2 [facility] ([facility], ) Body weight 359.00 [lb_av] 359.00 [lb_av] MEDEN T ([facility], ) Body height 64 [in_i] 64 [in_i] [facility] ([facility], ) 5'4" Diastolic blood pressure 74 mm[Hg] 74 mm[Hg] [facility] ([facility], ) Systolic blood pressure 132 mm[Hg] 132 mm[Hg] M EDENT ([facility], ) Diastolic blood pressure 70 mm[Hg] 70 mm[Hg] eCW1 [facility] [facility]) Systolic blood pressure 136 mm[Hg] 136 mm[Hg] e CW1 ([facility]) Body temperature 96.8 [degF] 96.8 [degF] eCW1 ( [facility]) Respiratory rate 20 /min 20 /min eCW1 ([facility]) Heart rate 75 /min 75 /min eCW1 ([facility]) Body mass index (BMI) [Ratio] 61.10 kg/m2 61.10 kg/m2 W1 ([facility]) Body height 64 [in_i] 64 [in_i] eCW1 ([facility]) Body weight 356 [lb_av] 356 [lb_av] eCW1 ([facility]) Diastolic blood pressure 72 mm[Hg] 72 mm[Hg] eCW1 ([facility]) Systolic blood pressure 132 mm[Hg] 132 mm[Hg] e CW1 ([facility]) Body temperature 96.5 [degF] 96.5 [degF] eCW1 ( [facility]) Respiratory rate 20 /min 20 /min eCW1 ([facility]) Heart rate 70 /min 70 /min eCW1 ([facility]) Body mass index (BMI) [Ratio] 59.21 kg/m2 59.21 kg/m2 eCW1 ([facility]) Body height 64 [in_us] 64 [in_us] eCW1 ([facility]) Body weight Measured 345 [lb_av] 345 [lb_av] eC W1 ([facility]) Body weight 155.585 kg 155.585 kg MEDENT ([facility], ) Body mass index (BMI) [Ratio] 58.9 kg/m2 58.9 k g/m2 [facility] ([facility], ) Body weight 343.00 [lb_av] 343.00 [lb_av] MEDEN T ([facility], ) Body height 64 [in_i] 64 [in_i] [facility] ([facility]) 5'4" Diastolic blood pressure 78 mm[Hg] 78 mm[Hg] [facility] ([facility]) Systolic blood pressure 126 mm[Hg] 126 mm[Hg] M EDENT ([facility], ) Body weight 148.327 kg 148.327 kg [facility] ([facility]) Body mass index (BMI) [Ratio] 56.1 kg/m2 56.1 k g/m2 [facility] ([facility]) Body weight 327.00 [lb_av] 327.00 [lb_av] MEDEN T ([facility]) Body height 64 [in_i] 64 [in_i] [facility] ([facility]) 5'4" Body temperature 96.8 [degF] 96.8 [degF] [facility] ([facility]) Diastolic blood pressure 76 mm[Hg] 76 mm[Hg] [facility] ([facility]) Systolic blood pressure 113 mm[Hg] 113 mm[Hg] M EDENT ([facility], ) Diastolic blood pressure 74 mm[Hg] 74 mm[Hg] eCW1 ([facility]) Systolic blood pressure 136 mm[Hg] 136 mm[Hg] e CW1 ([facility]) Body temperature 98.2 [degF] 98.2 [degF] eCW1 ( [facility]) Respiratory rate 22 /min 22 /min eCW1 ([facility]) Heart rate 71 /min 71 /min eCW1 ([facility]) Body mass index (BMI) [Ratio] 58.87 kg/m2 58.87 kg/m2 eCW1 ([facility]) Body height 64 [in_us] 64 [in_us] eCW1 ([facility]) Body weight Measured 343 [lb_av] 343 [lb_av] eC W1 ([facility]) Diastolic blood pressure 72 mm[Hg] 72 mm[Hg] eCW1 ([facility]) Systolic blood pressure 124 mm[Hg] 124 mm[Hg] e CW1 ([facility]) Body temperature 98.0 [degF] 98.0 [degF] eCW1 ( [facility]) Respiratory rate 22 /min 22 /min eCW1 ([facility]) Heart rate 94 /min 94 /min eCW1 ([facility]) Body mass index (BMI) [Ratio] 57.50 kg/m2 57.50 kg/m2 eCW1 ([facility]) Body height 64 [in_us] 64 [in_us] eCW1 ([facility]) Body weight Measured 335.0 [lb_av] 335.0 [lb_av ] eCW1 ([facility]) Body weight 146.059 kg 146.059 kg OMID ([facility], ) Body mass index (BMI) [Ratio] 55.3 kg/m2 55.3 k g/m2 MEDENT ([facility], ) Body weight 322.00 [lb_av] 322.00 [lb_av] MEDEN T ([facility], ) Body height 64 [in_i] 64 [in_i] MEDENT ([facility], ) 5'4" Diastolic blood pressure 66 mm[Hg] 66 mm[Hg] MEDENT ([facility], ) Systolic blood pressure 112 mm[Hg] 112 mm[Hg] M EDENT ([facility], ) Body mass index (BMI) [Ratio] 54.1 kg/m2 54.1 k g/m2 MEDENT ([facility] ) Body weight 315.00 [lb_av] 315.00 [lb_av] MEDEN T ([facility]) Body height 64 [in_i] 64 [in_i] MEDENT ([facility]) 5'4" Patient Treatment Plan of Care Planned Activity Planned Date Details Description Data Source (s) Cephalexin 500 MG Oral Capsule [Keflex] 09/10/2020 12:00:00 AM EST eCW1 ([facility]) Cephalexin 500 MG Oral Capsule [Keflex] 09/10/2020 12:00:00 AM EST eCW1 ([facility]) apixaban 2.5 MG Oral Tablet [Eliquis] 08/12/2020 12:00:00 AM EST eCW1 ([facility]) apixaban 2.5 MG Oral Tablet [Eliquis] 08/12/2020 12:00:00 AM EST eCW1 ([facility]) apixaban 2.5 MG Oral Tablet [Eliquis] 08/12/2020 12:00:00 AM EST eCW1 ([facility]) apixaban 2.5 MG Oral Tablet [Eliquis] 08/12/2020 12:00:00 AM EST eCW1 ([facility]) apixaban 2.5 MG Oral Tablet [Eliquis] 08/12/2020 12:00:00 AM EST eCW1 ([facility]) apixaban 2.5 MG Oral Tablet [Eliquis] 08/12/2020 12:00:00 AM EST eCW1 ([facility]) Levofloxacin 750 MG Oral Tablet 07/09/2020 12:00:00 AM EDT eCW1 ([facility]) Levofloxacin 750 MG Oral Tablet 07/09/2020 12:00:00 AM EDT eCW1 ([facility]) gabapentin 800 MG Oral Tablet 02/19/2020 12:00:00 AM EDT eCW1 ([facility]) Bisoprolol Fumarate 5 MG Oral Tablet 02/19/2020 12:00:00 AM EDT eCW1 ([facility]) Fluticasone Propionate 50 MCG/ACT 12/07/2019 12:00:00 AM EDT eCW1 ([facility]) Fluticasone Propionate 50 MCG/ACT 12/07/2019 12:00:00 AM EDT eCW1 ([facility]) cefpodoxime 200 MG Oral Tablet 08/24/2019 12:00:00 AM EST eCW1 ([facility]) Albuterol-Ipratropium 2.5-0.5 MG/3ML 08/23/2019 12:00:00 AM EST eCW1 ([facility]) Nebulizer/Tubing/Mouthpiece - 08/23/2019 12:00:00 AM EST eCW1 ([facility]) Nebulizer/Tubing/Mouthpiece - 08/23/2019 12:00:00 AM EST eCW1 ([facility]) Albuterol-Ipratropium 2.5-0.5 MG/3ML 08/23/2019 12:00:00 AM EST eCW1 ([facility]) Nebulizer/Tubing/Mouthpiece - 08/23/2019 12:00:00 AM EST eCW1 ([facility]) Prednisone 20 MG Oral Tablet 08/23/2019 12:00:00 AM EST eCW1 ([facility]) doxycycline hyclate 100 MG Oral Capsule 08/23/2019 12:00:00 AM EST eCW1 ([facility]) Albuterol-Ipratropium 2.5-0.5 MG/3ML 08/23/2019 12:00:00 AM EST eCW1 ([facility]) Spironolactone 25 MG Oral Tablet eCW1 ([facility])
[2020-10-01 21:40] LABS: BLOOD UREA NITROGEN 18 MG/DL (7-18); CALCIUM LEVEL 8.9 MG/DL (8.8-10.2); CARBON DIOXIDE LEVEL 28 MEQ/L (21-32); CHLORIDE LEVEL 110 MEQ/L (98-107); CREATININE FOR GFR 0.85 MG/DL (0.55-1.30); GLOMERULAR FILTRATION RATE > 60.0 (>45); GLUCOSE, FASTING 95 MG/DL (70-100); POTASSIUM SERUM 3.8 MEQ/L (3.5-5.1); SODIUM LEVEL 142 MEQ/L (136-145)
[2020-10-01 21:46] LABS: PLATELET COUNT, AUTOMATED 43 10^3/uL (150-450)
[2020-10-01 21:51] LABS: ERYTHROCYTE SEDIMENTATION RATE 17 mm/hr (0-30)
[2020-10-01] MEDS ORDERED: VANCOMYCIN HCL 1,000 MG, VIAL MATE ADAPTER 1 EACH in D5W 250 ML IV ONE (22:30)
[2020-10-01] MEDS ORDERED: GABA-845 PO (22:59)
[2020-10-01 23:09] LABS: RSV AMPLIFICATION NEGATIVE (NEGATIVE)
--- NOTE | 2020-10-01 23:37 | HPEPDOC ---
[facility] Medical History & Physical Date of Admission Oct 01, 2020 Date of Service: Oct 01, 2020 Primary Care Physician: QUINCY DONG MD Attending Physician: RACHELE KHAN MD History and Physical TIME OF SERVICE: 11:50 PM CHIEF COMPLAINT: Left arm pain, redness and swelling HISTORY OF PRESENT ILLNESS: This 80-year-old female was recently admitted for management of left arm and left chest cellulitis. She completed her antibiotics today, but shortly thereafter, the redness, pain and swelling reoccurred. She denies having nausea, vomiting, fevers or chills. Her last mammogram was 2 years ago at an outside hospital. She denies ever having a bone marrow biopsy. REVIEW OF SYSTEMS: 12 point review of systems negative except as listed in HPI PMH/PSH Liver Cirrhosis 2/2 Alpha-1 antitrypsin deficiency LISA Unspecified type of CHF ? Pancytopenia Neuropathy History of recurrent GI bleed attributed to rectal fissures, prepyloric erosion, hiatial hernia, antral gastritis, antral ulcers, distal esophagitis, AVMs, and gastric antral vascular ectasia (GAVE) GERD Irritable bowel syndrome Optic migraines Dyslipidemia Chronic Depression History of vitamin B12 deficiency History of seizures started in 1975, resolved in 1982 History of DVT 2, status post IVC filter placement in 1999 Remote history of CVA with transient left-sided weakness Morbid obesity Acquired hypothyroidism Unsteady gait at baseline she walks with a walker Status post tonsillectomy with adenoidectomy Status post appendectomy Status post 2 Status post tubal ligation Status post sport for a laparoscopy due to pelvic pain and heavy bleeding Status post partial hysterectomy. Status post left ovarian cystectomy 2 Status post cholecystectomy Status post hemorrhoidectomy History of left lower abdominal incarcerated hernia repair Status post colostomy replacement and reversal 2 years later History of rectal fissurectomy with double skin graft History of ventral mid and upper abdominal hernias, status post mesh placement SOCIAL HISTORY: Patient denies smoking Patient denies etoh use Patient denies illicit drug use FAMILY HISTORY: Father- had breast cancer. at 75 y/o Mother ALS, at 79 y/o. One of her brothers had esophageal and stomach cancer ALLERGIES: Please see below. HOME MEDICATIONS: Please see below. PHYSICAL EXAMINATION: Vital Signs Date Time Temp Pulse Resp B/P (MAP) Pulse Ox O2 Delivery O2 Flow Rate FiO2 10/01/20 19:11 99.4 84 16 113/56 (15) 94 Room Air GEN: well-nourished / well developed/ NAD INTEGUMENT: Skin covering the left arm and left lateral breast are red, warm and swollen HEENT: EOMI CVS: RRR/NMRG/ radial pulses intact / no lower extremity edema LUNGS: able to speak full sentences without stopping to take a breath / no coughing / lungs are clear to auscultation bilaterally on room air ABDOMEN: Contour (obese) / soft & not tender with palpation MSK/EXTREMITIES: NCAT / range of motion intact in all 4 extremities NEURO: CN 2-12 are grossly intact / speech is not dysarthric PSYCH: alert and oriented to person place and time/ able to understand and follow all commands LABORATORY DATA: See below. IMAGING: n/a MICROBIOLOGY: Please see below. ASSESSMENT: Ms. Saucedo is a 65-year-old with a history of CHF, PE, anemia, hypothyroidism and depression who presented with recurrence of left arm and left chest pain, redness and swelling; her presentation is suspicious for antibiotic failure versus Pagets disease of the breast. PLAN: 1. Left arm and left lateral breast redness and swelling Possibly due to Paget's disease of the breast especially in the setting of a family hx of breast cancer I am not convinced she has recurrent cellulitis or abx failure because she doesn't have SIRS criteria leukocytosis or left shift This less likely due to panniculitis associated with alpha 1 AT deficiency Plan: Admit to medical floor/will hold off antibiotics/will ask the daytime team to consult hematology oncology to discuss mammogram plus or minus MRI of the breast 2. Pancytopenia The patient denied ever having a bone marrow biopsy Plan: Follow up coags & iron studies, with B12, and folate /trend CBC / will ask the daytime team to touch base with hematology 3. DVTs Plan: Eliquis 4. Alpha-1 antitrypsin deficiency / LISA Plan: f/u w GI as scheduled 3. Unspecified type of CHF Plan: f/u BNP / the day time team may consider getting an Echo or calling her PCP for records /torsemide & bisoprolol 4. Neuropathy Plan: gabapentin 5. History of recurrent GI bleed attributed to rectal fissures, prepyloric erosion, hiatial hernia, antral gastritis, antral ulcers, distal esophagitis, AVMs & (GAVE) Plan: PPI 6. Depression Plan: venlafaxine 7. Acquired hypothyroidism Plan: levothyroxine 8. 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 Morbid obesity complicates care Plan: f/u A1C / can f/u with PCP for sleep apnea screening and to discuss diet and exercise DVT PROPHYLAXIS: n/a on DOAC DISPOSITION: home after more than 2 midnight's stay Laboratory Data Labs 24H Laboratory Tests 2 10/01/20 20:53: Immature Granulocyte % (Auto) 0.5, Neutrophils (%) (Auto) 64.5, Lymphocytes (%) (Auto) 21.9L, Monocytes (%) (Auto) 6.3H, Eosinophils (%) (Auto) 6.3H, Basophils (%) (Auto) 0.5, Neutrophils # (Auto) 1.2L, Lymphocytes # (Auto) 0.4L, Monocytes # (Auto) 0.1, Eosinophils # (Auto) 0.1, Basophils # (Auto) 0.0, Nucleated Red Blood Cells % (auto) 0.0, Immature Platelet Fraction 2.8, Erythrocyte Sedimentation Rate 17, Anion Gap 4L, Glomerular Filtration Rate > 60.0, Calcium Level 8.9, C-Reactive Protein, Quantitative 0.70H 10/01/20 22:21: Coronavirus (COVID-19)(PCR) NEGATIVE, Influenza Type A (RT-PCR) NEGATIVE, Influenza Type B (RT-PCR) NEGATIVE, Respiratory Syncytial Virus (PCR) NEGATIVE CBC/BMP Laboratory Tests 10/01/20 20:53 Home Medications Scheduled Apixaban (Eliquis) 2.5 Mg Tablet, 2.5 MG PO BID Bisoprolol Fumarate (Bisoprolol Fumarate) 5 Mg Tablet, 5 MG PO BID Calcium Carbonate (Calcium) 500 Mg Tablet, 1,000 MG PO QHS Cyanocobalamin (Vitamin B-12) (Vitamin B-12) 1,000 Mcg Tablet, 1,000 MCG PO DAILY Cyclobenzaprine HCl (Cyclobenzaprine HCl) 10 Mg Tablet, 10 MG PO TID Gabapentin (Gabapentin) 800 Mg Tablet, 800 MG PO BID Gabapentin (Gabapentin) 400 Mg Capsule, 400 MG PO DAILY TAKES AT 1500 Levothyroxine Sodium (Levothyroxine Sodium) 88 Mcg Tablet, 88 MCG PO DAILY Pantoprazole Sodium (Pantoprazole Sodium) 40 Mg Tablet.dr, 40 MG PO BID Potassium Chloride (Potassium Chloride) 20 Meq Tab.er.prt, 20 MEQ PO QHS Prednisone (Prednisone) 10 Mg Tablet, 10 MG PO TAPER Take 4 tabs daily x 3 days, then 3 tabs daily x 3 days, then 2 tabs daily x 3 days, then 1 tab daily x 3 days and stop Torsemide (Torsemide) 20 Mg Tablet, 20 MG PO BID 0900, 1500 Trazodone HCl (Trazodone HCl) 150 Mg Tablet, 150 MG PO QHS Triamcinolone Acet (Triamcinolone Acetonide 0.1% Oint) 15 Gm Oint...g., 1 APLCT TOP BID apply to affected area(s) Venlafaxine HCl (Venlafaxine HCl ER) 75 Mg Cap.er.24h, 75 MG PO DAILY Venlafaxine HCl (Venlafaxine HCl ER) 75 Mg Cap.er.24h, 150 MG PO QHS Vitamin B Complex (Vitamin B Complex) 1 Each Tablet, 1 TAB PO DAILY Allergies Coded Allergies: naloxone (Verified Allergy, Unknown, sz, 10/01/20) codeine (Verified Adverse Reaction, Intermediate, CHESP PAIN, 10/01/20) ibuprofen (Verified Adverse Reaction, Intermediate, JOINT/ MUSCLE PAIN, 10/01/20) pregabalin (Verified Adverse Reaction, Intermediate, chest pain, 10/01/20) amoxicillin (Verified Adverse Reaction, Mild, vomiting and diarrhea, 10/01/20) clavulanic acid (Verified Adverse Reaction, Mild, vomiting and diarrhea, 10/01/20) erythromycin base (Verified Adverse Reaction, Mild, vomting diarrhea, 10/01/20) hydromorphone (Verified Adverse Reaction, Mild, ITCHING, 10/01/20) CAN TAKE IF BENADRYL GIVEN PRIOR A-FIB/CHADSVASC A-FIB History Current/History of A-Fib/PAF?: No Current PO Anticoag Therapy: No RACHELE KHAN MD Oct 01, 2020 23:37
[2020-10-01] MEDS ORDERED: ACETAMINOPHEN TAB 650MG DOSE (2X325MG) PO PRN (23:45)
[2020-10-01] MEDS ORDERED: MOM 30ML SUSPENSION UDC PO PRN (23:45)
[2020-10-01] MEDS ORDERED: MAALOX 30 ML SUSP *UDC PO PRN (23:45)
--- OUTSIDE RECORDS SUMMARY | 2020-10-01 23:54 | CCD ---
Author Author [facility] Organization [facility] Address Unknown Phone Unavailable Care Team Providers Care Extractions Technologist Name Role Phone Renetta Garsia PA Unavailable [...] Judi PA Unavailable Unavailable QUIROZ, H DEON PERSONAL FINANCIAL ADVISOR Unavailable Unavailable QUIROZ, H DEON PERSONAL FINANCIAL ADVISOR Unavailable Unavailable QUIROZ, H DEON PERSONAL FINANCIAL ADVISOR Unavailable Unavailable QUIROZ, H DEON PERSONAL FINANCIAL ADVISOR Unavailable Unavailable QUIROZ, H DEON PERSONAL FINANCIAL ADVISOR Unavailable Unavailable QUIROZ, H DEON PERSONAL FINANCIAL ADVISOR Unavailable Unavailable QUIROZ, H DEON PERSONAL FINANCIAL ADVISOR Unavailable Unavailable QUIROZ, H DEON PERSONAL FINANCIAL ADVISOR Unavailable Unavailable QUIROZ, H DEON PERSONAL FINANCIAL ADVISOR Unavailable Unavailable QUIROZ, H DEON PERSONAL FINANCIAL ADVISOR Unavailable Unavailable QUIROZ, H DEON PERSONAL FINANCIAL ADVISOR Unavailable Unavailable QUIROZ, H DEON PERSONAL FINANCIAL ADVISOR Unavailable Unavailable QUIROZ, H DEON PERSONAL FINANCIAL ADVISOR Unavailable Unavailable QUIROZ, H DEON PERSONAL FINANCIAL ADVISOR Unavailable Unavailable QUIROZ, H DEON PERSONAL FINANCIAL ADVISOR Unavailable Unavailable QUIROZ, H DEON PERSONAL FINANCIAL ADVISOR Unavailable Unavailable QUIROZ, H DEON PERSONAL FINANCIAL ADVISOR Unavailable Unavailable QUIROZ, H DEON PERSONAL FINANCIAL ADVISOR Unavailable Unavailable QUIROZ, H DEON PERSONAL FINANCIAL ADVISOR Unavailable Unavailable QUIROZ, H DEON PERSONAL FINANCIAL ADVISOR Unavailable Unavailable QUIROZ, H DEON PERSONAL FINANCIAL ADVISOR Unavailable Unavailable QUIROZ, H DEON PERSONAL FINANCIAL ADVISOR Unavailable Unavailable QUIROZ, H DEON PERSONAL FINANCIAL ADVISOR Unavailable Unavailable QUIROZ, H DEON PERSONAL FINANCIAL ADVISOR Unavailable Unavailable QUIROZ, H DEON PERSONAL FINANCIAL ADVISOR Unavailable Unavailable QUIROZ, H DEON PERSONAL FINANCIAL ADVISOR Unavailable Unavailable QUIROZ, H DEON PERSONAL FINANCIAL ADVISOR Unavailable Unavailable QUIROZ, H DEON PERSONAL FINANCIAL ADVISOR Unavailable Unavailable QUIROZ, H DEON PERSONAL FINANCIAL ADVISOR Unavailable Unavailable QUIROZ, H DEON PERSONAL FINANCIAL ADVISOR Unavailable Unavailable QUIROZ, H DEON PERSONAL FINANCIAL ADVISOR Unavailable Unavailable QUIROZ, H DEON PERSONAL FINANCIAL ADVISOR Unavailable Unavailable QUIROZ, H DEON PERSONAL FINANCIAL ADVISOR Unavailable Unavailable QUIROZ, H DEON PERSONAL FINANCIAL ADVISOR Unavailable Unavailable QUIROZ, H DEON PERSONAL FINANCIAL ADVISOR Unavailable Unavailable QUIROZ, H DEON PERSONAL FINANCIAL ADVISOR Unavailable Unavailable QUIROZ, H DEON PERSONAL FINANCIAL ADVISOR Unavailable Unavailable QUIROZ, H DEON PERSONAL FINANCIAL ADVISOR Unavailable Unavailable QUIROZ, H DEON PERSONAL FINANCIAL ADVISOR Unavailable Unavailable QUIROZ, H DEON PERSONAL FINANCIAL ADVISOR Unavailable Unavailable QUIROZ, H DEON PERSONAL FINANCIAL ADVISOR Unavailable Unavailable QUIROZ, H DEON PERSONAL FINANCIAL ADVISOR Unavailable Unavailable QUIROZ, H DEON PERSONAL FINANCIAL ADVISOR Unavailable Unavailable QUIROZ, H DEON PERSONAL FINANCIAL ADVISOR Unavailable Unavailable QUIROZ, H DEON PERSONAL FINANCIAL ADVISOR Unavailable Unavailable QUIROZ, H DEON PERSONAL FINANCIAL ADVISOR Unavailable Unavailable QUIROZ, H DEON PERSONAL FINANCIAL ADVISOR Unavailable Unavailable QUIROZ, H DEON PERSONAL FINANCIAL ADVISOR Unavailable Unavailable QUIROZ, H DEON PERSONAL FINANCIAL ADVISOR Unavailable Unavailable QUIROZ, H DEON PERSONAL FINANCIAL ADVISOR Unavailable Unavailable QUIROZ, H DEON PERSONAL FINANCIAL ADVISOR Unavailable Unavailable QUIROZ, H DEON PERSONAL FINANCIAL ADVISOR Unavailable Unavailable QUIROZ, H DEON PERSONAL FINANCIAL ADVISOR Unavailable Unavailable QUIROZ, H DEON PERSONAL FINANCIAL ADVISOR Unavailable Unavailable QUIROZ, H DEON PERSONAL FINANCIAL ADVISOR Unavailable Unavailable Hecj, Tavon Nielson MD Unavailable [...] is protected by Article 27-F of the [facility] Public Health law. If you continue you may have access to information: Regarding HIV / AIDS; Provided by facilities licensed or operated by the [facility] Office of Mental Health; or Provided by the [facility] Office for People With Developmental Disabilities. If such information is present, then the following [facility] mandated warning applies: This information has [...] law may result in a fine or correction sentence or both. A general authorization for the release of medical or other information is NOT sufficient authorization for further disc losure. Allergies and Adverse Reactions Type Description Substance Reaction Status Data Source(s ) codeine Codeine Sulfate Codeine severe chest pain Active e CW1 ([facility]) tetracycline Tetracycline HCl Tetracycline turned teeth yellow Activ e eCW1 ([facility]) Drug allergy IBU Ibuprofen severe joint and muscle pain Acti ve eCW1 ([facility]) Drug allergy Lyrica pregabalin chest pain and irregular heartbeat Active eCW1 ([facility]) Drug allergy Narcan Naloxone seizures and highly combative Act renny eCW1 ([facility]) Drug allergy Augmentin amoxicillin / clavulanate Diarrhea, vomiting Active eCW1 ([facility]) Drug allergy Dilaudid Hydromorphone itching Active eCW1 ([facility]) Erythromycin Erythromycin Erythromycin Vomiting, Diarrhea Active eCW1 ([facility]) seasonal,dust,mold,ragweed,chestnut blossoms, cut g seasonal,dust,mold,ragweed,chestnut blossoms, cut g seasonal,dust,mold,ragweed,chestnut blossoms, cut g Dyspnea Active eCW1 ([facility]) seasonal,dust,mold,ragweed,chestnut blossoms, cut g seasonal,dust,mold,ragweed,chestnut blossoms, cut g seasonal,dust,mold,ragweed,chestnut blossoms, cut g Dyspnea Active eCW1 ([facility]) Codeine Sulfate Codeine Sulfate Codeine Sulfate severe chest pain Ac tive eCW1 ([facility]) seasonal,dust,mold,ragweed,chestnut blossoms, cut g seasonal,dust,mold,ragweed,chestnut blossoms, cut g seasonal,dust,mold,ragweed,chestnut blossoms, cut g Dyspnea Active eCW1 ([facility]) Family History Family Member Name Family Member Gender Family Member Status Date o f Status Description Data Source(s) Unknown Male Problem [facility] ([facility]) Encounters Encounter Providers Location Date Indications Data Source(s ) [place] [address] [facility] [address] 09/19/2020 12:00:00 AM EST eCW1 ([facility]) [place] [address] [facility] [address] 09/10/2020 12:00:00 AM EST eCW1 ([facility]) [place] [address] [facility] [address] 09/09/2020 12:00:00 AM EST eCW1 ([facility]) [place] [address] [facility] [address] 09/02/2020 12:00:00 AM EST eCW1 ([facility]) [place] [address] [facility] [address] 09/01/2020 12:00:00 AM EST eCW1 ([facility]) [place] [address] [facility] [address] 08/21/2020 12:00:00 AM EST eCW1 ([facility]) [place] [address] [facility] [address] 08/12/2020 12:00:00 AM EST eCW1 ([facility]) [place] [address] [facility] [address] 08/04/2020 12:00:00 AM EST eCW1 ([facility]) [place] [address] [facility] [address] 07/09/2020 12:00:00 AM EDT [facility]CW1 [facility] [place] [address] [facility] [address] 07/08/2020 12:00:00 AM EDT [facility]CW1 ([facility]) [place] [address] [facility] [address] 06/24/2020 12:00:00 AM EDT eCW1 [facility]) Outpatient Attender: Judi SMITH Main Office 04/02/2020 10:45:00 AM EDT [facility] ([facility]) [place] [address] [facility] [address] 03/24/2020 12:00:00 AM EDT eCW1 ([facility]) [place] [address] [facility] [address] 03/21/2020 12:00:00 AM EDT eCW1 ([facility]) Outpatient Referrer: DEON QUIROZ NP 02/28/2020 06:12:00 AM E DT [facility] [place] [address] [facility] [address] 02/20/2020 12:00:00 AM EDT [facility]CW1 [facility] Outpatient [address] [place] [address], [place] [address] 02/15/2020 12:00:00 AM EDT eCW1 ([facility]) [address] [place] [address] 02/07/2020 12:00:00 AM EDT eCW1 ([facility]) Outpatient Attender: FRANCISCO Mora/Omar/Kaden anderson/Scott 01/17/2020 03:40:00 PM EDT MED[facility] ([facility] [address] [address] 01/15/2020 12:00:00 AM EDT eCW1 ([facility]) [address] [address] 01/07/2020 12:00:00 AM EDT eCW1 ([facility]) [address] [address] 01/03/2020 12:00:00 AM EDT eCW1 ([facility]) Outpatient Referrer: DEON QUIROZ NP 12/13/2019 05:53:00 AM E DT [facility] Outpatient Attender: Abbi Mora/Omar/Dmitriy/Uzma vital 12/11/2019 11:00:00 AM EDT [facility] ([facility] [address] [address] 12/07/2019 12:00:00 AM EDT eCW1 ([facility]) [address] [place] [address] 11/26/2019 12:00:00 AM EDT eCW1 ([facility]) [address] [address] 11/23/2019 12:00:00 AM EDT eCW1 ([facility]) [facility] [address] [place] [address], [place] [address] 11/19/2019 12:00:00 AM EDT eCW1 ([facility]) [facility] [address] [facility] [address] 11/07/2019 12:00:00 AM EST eCW1 ([facility]) [facility] [address] [place] [address], [place] [address] 11/07/2019 12:00:00 AM EST eCW1 ([facility]) Outpatient Referrer: DEON QUIROZ NP 11/06/2019 02:23:[address] [facility] [address] [place] [address], [place] [address] 11/06/2019 12:00:00 AM EST eCW1 ([facility]) [facility] [address] [place] [address], [place] [address] 10/29/2019 12:00:00 AM EST eCW1 ([facility]) [address] [address] 10/08/2019 12:00:00 AM EST eCW1 ([facility]) Outpatient Referrer: DEON QUIROZ NP 10/04/2019 01:37:[address] [facility] Outpatient Referrer: DEON QUIROZ NP 09/28/2019 05:46:[address] [facility] [address] [address] 09/26/2019 12:00:00 AM EST eCW1 ([facility]) [address] [address] 09/21/2019 12:00:00 AM EST eCW1 ([facility]) [facility] [address] [place] [address], [place] [address] 09/19/2019 12:00:00 AM EST eCW1 ([facility]) [address] [address] 09/13/2019 12:00:00 AM EST eCW1 ([facility]) Outpatient Referrer: DEON QUIROZ NP 08/28/2019 09:07:[address] [facility] [address] [address] 08/27/2019 12:00:00 AM EST eCW1 ([facility]) [address] [address] 08/24/2019 12:00:00 AM EST eCW1 ([facility]) [address] [address] 08/23/2019 12:00:00 AM EST eCW1 ([facility]) Outpatient Attender: FRANCISCO Mora/Omar/Kaden anderson/Scott 08/08/2019 09:50:00 AM EST [facility] ([facility] [address] [address] 08/08/2019 12:00:00 AM EST eCW1 ([facility]) [address] [address] 08/06/2019 12:00:00 AM EST eCW1 ([facility]) Outpatient Attender: Naga Robles MD Physical Therapy 12:00:00 PM EST [facility] ([facility]) [address] [address] 08/03/2019 12:00:00 AM EST eCW1 ([facility]) [address] [address] 08/03/2019 12:00:00 AM EST eCW1 ([facility]) Immunizations Vaccine Date Status Description Data Source(s) [...] {capsule} active K eflex 500 MG eCW1 ([facility]) Cephalexin 500 MG Oral Capsule [Keflex] Keflex 500 MG Keflex 500 MG 09/10/2020 12:00:00 AM EST 1.0 {capsule} active K eflex 500 MG eCW1 ([facility]) apixaban 2.5 MG Oral Tablet [Eliquis] Eliquis 2.5 MG Eliquis 2.5 MG 08/12/2020 12:00:00 AM EST active Eliquis 2.5 MG eCW1 ([facility]) apixaban 2.5 MG Oral Tablet [Eliquis] Eliquis 2.5 MG Eliquis 2.5 MG 08/12/2020 12:00:00 AM EST active Eliquis 2.5 MG eCW1 ([facility]) apixaban 2.5 MG Oral Tablet [Eliquis] Eliquis 2.5 MG Eliquis 2.5 MG 08/12/2020 12:00:00 AM EST active Eliquis 2.5 MG eCW1 ([facility]) apixaban 2.5 MG Oral Tablet [Eliquis] Eliquis 2.5 MG Eliquis 2.5 MG 08/12/2020 12:00:00 AM EST active Eliquis 2.5 MG eCW1 ([facility]) apixaban 2.5 MG Oral Tablet [Eliquis] Eliquis 2.5 MG Eliquis 2.5 MG 08/12/2020 12:00:00 AM EST active Eliquis 2.5 MG eCW1 ([facility]) apixaban 2.5 MG Oral Tablet [Eliquis] Eliquis 2.5 MG Eliquis 2.5 MG 08/12/2020 12:00:00 AM EST active Eliquis 2.5 MG eCW1 ([facility]) apixaban 2.5 MG Oral Tablet [Eliquis] Eliquis 2.5 MG Eliquis 2.5 MG 08/12/2020 12:00:00 AM EST active Eliquis 2.5 MG eCW1 ([facility]) apixaban 2.5 MG Oral Tablet [Eliquis] Eliquis 2.5 MG Eliquis 2.5 MG 08/12/2020 12:00:00 AM EST active Eliquis 2.5 MG eCW1 ([facility]) Loperamide Hydrochloride 2 MG Oral Capsule [Imodium] I modium A-D 2 MG Imodium A- D 2 MG 08/01/2020 12:00:00 AM EST 1.0 {capsule_as_needed} active Imodium A-D 2 MG eCW1 ([facility]) Loperamide Hydrochloride 2 MG Oral Capsule [Imodium] I modium A-D 2 MG Imodium A- D 2 MG 08/01/2020 12:00:00 AM EST 1.0 {capsule_as_needed} active Imodium A-D 2 MG eCW1 ([facility]) Loperamide Hydrochloride 2 MG Oral Capsule [Imodium] I modium A-D 2 MG Imodium A- D 2 MG 08/01/2020 12:00:00 AM EST 1.0 {capsule_as_needed} active Imodium A-D 2 MG eCW1 ([facility]) Loperamide Hydrochloride 2 MG Oral Capsule [Imodium] I modium A-D 2 MG Imodium A- D 2 MG 08/01/2020 12:00:00 AM EST 1.0 {capsule_as_needed} active Imodium A-D 2 MG eCW1 ([facility]) Loperamide Hydrochloride 2 MG Oral Capsule [Imodium] I modium A-D 2 MG Imodium A- D 2 MG 08/01/2020 12:00:00 AM EST 1.0 {capsule_as_needed} active Imodium A-D 2 MG eCW1 ([facility]) Loperamide Hydrochloride 2 MG Oral Capsule [Imodium] I modium A-D 2 MG Imodium A- D 2 MG 08/01/2020 12:00:00 AM EST 1.0 {capsule_as_needed} active Imodium A-D 2 MG eCW1 ([facility]) Loperamide Hydrochloride 2 MG Oral Capsule [Imodium] I modium A-D 2 MG Imodium A- D 2 MG 08/01/2020 12:00:00 AM EST 1.0 {capsule_as_needed} active Imodium A-D 2 MG eCW1 ([facility]) Loperamide Hydrochloride 2 MG Oral Capsule [Imodium] I modium A-D 2 MG Imodium A- D 2 MG 08/01/2020 12:00:00 AM EST 1.0 {capsule_as_needed} active Imodium A-D 2 MG eCW1 ([facility]) Levofloxacin 750 MG Oral Tablet Levofloxacin 750 MG 07/09/2020 1 2:00:00 AM EDT 1.0 {tablet} suspended Levofloxa darius 750 MG eCW1 ([facility]) Levofloxacin 750 MG Oral Tablet Levofloxacin 750 MG 07/09/2020 1 2:00:00 AM EDT 1.0 {tablet} active Levofloxaci n 750 MG eCW1 ([facility]) Levofloxacin 750 MG Oral Tablet Levofloxacin 750 MG 07/09/2020 1 2:00:00 AM EDT 1.0 {tablet} active Levofloxaci n 750 MG eCW1 ([facility]) Levofloxacin 750 MG Oral Tablet Levofloxacin 750 MG 07/09/2020 1 2:00:00 AM EDT 1.0 {tablet} active Levofloxaci n 750 MG eCW1 ([facility]) Levofloxacin 750 MG Oral Tablet Levofloxacin 750 MG 07/09/2020 1 2:00:00 AM EDT 1.0 {tablet} active Levofloxaci n 750 MG eCW1 ([facility]) Levofloxacin 750 MG Oral Tablet Levofloxacin 750 MG 07/09/2020 1 2:00:00 AM EDT 1.0 {tablet} active Levofloxaci n 750 MG eCW1 ([facility]) Levofloxacin 750 MG Oral Tablet Levofloxacin 750 MG 07/09/2020 1 2:00:00 AM EDT 1.0 {tablet} active Levofloxaci n 750 MG eCW1 ([facility]) Levofloxacin 750 MG Oral Tablet Levofloxacin 750 MG 07/09/2020 1 2:00:00 AM EDT 1.0 {tablet} active Levofloxaci n 750 MG eCW1 ([facility]) Levofloxacin 750 MG Oral Tablet Levofloxacin 750 MG 07/09/2020 1 2:00:00 AM EDT 1.0 {tablet} suspended Levofloxa darius 750 MG eCW1 ([facility]) Levofloxacin 750 MG Oral Tablet Levofloxacin 750 MG 07/09/2020 1 2:00:00 AM EDT 1.0 {tablet} active Levofloxaci n 750 MG eCW1 ([facility]) Sucralfate 1000 MG Oral Tablet Sucralfate 04/01/2020 12:00:00 AM EDT ORAL active [facility] ([facility]) Vitamin B Complex-C 04/01/2020 12:00:00 AM EDT ORAL active MEDENT ([facility]) Vitamin B 12 1 MG Oral Tablet Vitamin B-12 04/01/2020 12:00:00 AM EDT ORAL active [facility] ([facility]) Oxygen - Home 04/01/2020 12:00:00 AM EDT acti ve MEDENT ([facility]) Lactulose 667 MG/ML Oral Solution Lactulose 04/01/2020 12:00:00 AM EDT ORAL active [facility] ([facility]) Bisoprolol Fumarate 5 MG Oral Tablet Bisoprolol Fumarate 12:00:00 AM EDT ORAL active [facility] ([facility]) Cholecalciferol 10 MCG (400 UNIT) UNK 02/19/2020 12:00:00 AM EDT 1.0 {capsule} active Cholecalciferol 10 MCG ( 400 UNIT) eCW1 ([facility]) Bisoprolol Fumarate 5 MG Oral Tablet Bisoprolol Fumarate 5 M G 02/19/2020 12:00:00 AM EDT 1.0 {tablet} active Bi soprolol Fumarate 5 MG eCW1 ([facility]) Albuterol 0.833 MG/ML / Ipratropium Brom doyle 0.167 MG/ML Inhalant Solution Ipratropium-Albuterol 0.5-2.5 (3) MG/3ML Ipratropium-Albuterol 0.5-2.5 (3) MG/3ML 02/19/2020 12:00:00 AM EDT 3.0 {ml_as_needed} active Ipratropium-Albuterol 0.5-2.5 (3) MG/3ML eCW1 ([facility]) Albuterol 0.833 MG/ML / Ipratropium Brom doyle 0.167 MG/ML Inhalant Solution Ipratropium-Albuterol 0.5-2.5 (3) MG/3ML Ipratropium-Albuterol 0.5-2.5 (3) MG/3ML 02/19/2020 12:00:00 AM EDT 3.0 {ml_as_needed} active Ipratropium-Albuterol 0.5-2.5 (3) MG/3ML eCW1 ([facility]) gabapentin 800 MG Oral Tablet Gabapentin 800 MG Gabapentin 8 00 MG 02/19/2020 12:00:00 AM EDT 1.0 {tablet} active Ga bapentin 800 MG eCW1 ([facility]) Bisoprolol Fumarate 5 MG Oral Tablet Bisoprolol Fumarate 5 M G 02/19/2020 12:00:00 AM EDT 1.0 {tablet} active Bi soprolol Fumarate 5 MG eCW1 ([facility]) Bisoprolol Fumarate 5 MG Oral Tablet Bisoprolol Fumarate 5 M G 02/19/2020 12:00:00 AM EDT 1.0 {tablet} active Bi soprolol Fumarate 5 MG eCW1 ([facility]) gabapentin 800 MG Oral Tablet Gabapentin 800 MG Gabapentin 8 00 MG 02/19/2020 12:00:00 AM EDT 1.0 {tablet} active Ga bapentin 800 MG eCW1 ([facility]) Cholecalciferol 10 MCG (400 UNIT) UNK 02/19/2020 12:00:00 AM EDT 1.0 {capsule} active Cholecalciferol 10 MCG ( 400 UNIT) eCW1 ([facility]) Cholecalciferol 10 MCG (400 UNIT) UNK 02/19/2020 12:00:00 AM EDT 1.0 {capsule} active Cholecalciferol 10 MCG ( 400 UNIT) eCW1 ([facility]) Bisoprolol Fumarate 5 MG Oral Tablet Bisoprolol Fumarate 5 M G 02/19/2020 12:00:00 AM EDT 1.0 {tablet} active Bi soprolol Fumarate 5 MG eCW1 ([facility]) Albuterol 0.833 MG/ML / Ipratropium Brom doyle 0.167 MG/ML Inhalant Solution Ipratropium-Albuterol 0.5-2.5 (3) MG/3ML Ipratropium-Albuterol 0.5-2.5 (3) MG/3ML 02/19/2020 12:00:00 AM EDT 3.0 {ml_as_needed} active Ipratropium-Albuterol 0.5-2.5 (3) MG/3ML eCW1 ([facility]) Bisoprolol Fumarate 5 MG Oral Tablet Bisoprolol Fumarate 5 M G 02/19/2020 12:00:00 AM EDT 1.0 {tablet} active Bi soprolol Fumarate 5 MG eCW1 ([facility]) gabapentin 800 MG Oral Tablet Gabapentin 800 MG Gabapentin 8 00 MG 02/19/2020 12:00:00 AM EDT 1.0 {tablet} active Ga bapentin 800 MG eCW1 ([facility]) Bisoprolol Fumarate 5 MG Oral Tablet Bisoprolol Fumarate 5 M G 02/19/2020 12:00:00 AM EDT 1.0 {tablet} active Bi soprolol Fumarate 5 MG eCW1 ([facility]) Cholecalciferol 10 MCG (400 UNIT) UNK 02/19/2020 12:00:00 AM EDT 1.0 {capsule} active Cholecalciferol 10 MCG ( 400 UNIT) eCW1 ([facility]) Albuterol 0.833 MG/ML / Ipratropium Brom doyle 0.167 MG/ML Inhalant Solution Ipratropium-Albuterol 0.5-2.5 (3) MG/3ML Ipratropium-Albuterol 0.5-2.5 (3) MG/3ML 02/19/2020 12:00:00 AM EDT 3.0 {ml_as_needed} active Ipratropium-Albuterol 0.5-2.5 (3) MG/3ML eCW1 ([facility]) Levofloxacin 500 MG Oral Tablet Levofloxacin 500 MG 02/19/2020 1 2:00:00 AM EDT 1.0 {tablet} active Levofloxaci n 500 MG eCW1 ([facility]) gabapentin 800 MG Oral Tablet Gabapentin 800 MG Gabapentin 8 00 MG 02/19/2020 12:00:00 AM EDT 1.0 {tablet} active Ga bapentin 800 MG eCW1 ([facility]) Albuterol 0.833 MG/ML / Ipratropium Brom doyle 0.167 MG/ML Inhalant Solution Ipratropium-Albuterol 0.5-2.5 (3) MG/3ML Ipratropium-Albuterol 0.5-2.5 (3) MG/3ML 02/19/2020 12:00:00 AM EDT 3.0 {ml_as_needed} active Ipratropium-Albuterol 0.5-2.5 (3) MG/3ML eCW1 ([facility]) Albuterol 0.833 MG/ML / Ipratropium Brom doyle 0.167 MG/ML Inhalant Solution Ipratropium-Albuterol 0.5-2.5 (3) MG/3ML Ipratropium-Albuterol 0.5-2.5 (3) MG/3ML 02/19/2020 12:00:00 AM EDT 3.0 {ml_as_needed} active Ipratropium-Albuterol 0.5-2.5 (3) MG/3ML eCW1 ([facility]) Bisoprolol Fumarate 5 MG Oral Tablet Bisoprolol Fumarate 5 M G 02/19/2020 12:00:00 AM EDT 1.0 {tablet} active Bi soprolol Fumarate 5 MG eCW1 ([facility]) Cholecalciferol 10 MCG (400 UNIT) UNK 02/19/2020 12:00:00 AM EDT 1.0 {capsule} active Cholecalciferol 10 MCG ( 400 UNIT) eCW1 ([facility]) gabapentin 800 MG Oral Tablet Gabapentin 800 MG Gabapentin 8 00 MG 02/19/2020 12:00:00 AM EDT 1.0 {tablet} active Ga bapentin 800 MG eCW1 ([facility]) Cholecalciferol 10 MCG (400 UNIT) UNK 02/19/2020 12:00:00 AM EDT 1.0 {capsule} active Cholecalciferol 10 MCG ( 400 UNIT) eCW1 ([facility]) Levofloxacin 500 MG Oral Tablet Levofloxacin 500 MG 02/19/2020 1 2:00:00 AM EDT 1.0 {tablet} active Levofloxaci n 500 MG eCW1 ([facility]) Bisoprolol Fumarate 5 MG Oral Tablet Bisoprolol Fumarate 5 M G 02/19/2020 12:00:00 AM EDT 1.0 {tablet} active Bi soprolol Fumarate 5 MG eCW1 ([facility]) Albuterol 0.833 MG/ML / Ipratropium Brom doyle 0.167 MG/ML Inhalant Solution Ipratropium-Albuterol 0.5-2.5 (3) MG/3ML Ipratropium-Albuterol 0.5-2.5 (3) MG/3ML 02/19/2020 12:00:00 AM EDT 3.0 {ml_as_needed} active Ipratropium-Albuterol 0.5-2.5 (3) MG/3ML eCW1 ([facility]) gabapentin 800 MG Oral Tablet Gabapentin 800 MG Gabapentin 8 00 MG 02/19/2020 12:00:00 AM EDT 1.0 {tablet} active Ga bapentin 800 MG eCW1 ([facility]) Cholecalciferol 10 MCG (400 UNIT) UNK 02/19/2020 12:00:00 AM EDT 1.0 {capsule} active Cholecalciferol 10 MCG ( 400 UNIT) eCW1 ([facility]) Cholecalciferol 10 MCG (400 UNIT) UNK 02/19/2020 12:00:00 AM EDT 1.0 {capsule} active Cholecalciferol 10 MCG ( 400 UNIT) eCW1 ([facility]) gabapentin 800 MG Oral Tablet Gabapentin 800 MG Gabapentin 8 00 MG 02/19/2020 12:00:00 AM EDT 1.0 {tablet} active Ga bapentin 800 MG eCW1 ([facility]) Cholecalciferol 10 MCG (400 UNIT) UNK 02/19/2020 12:00:00 AM EDT 1.0 {capsule} suspended Cholecalciferol 10 MCG (400 UNIT) eCW1 ([facility]) gabapentin 800 MG Oral Tablet Gabapentin 800 MG Gabapentin 8 00 MG 02/19/2020 12:00:00 AM EDT 1.0 {tablet} active Ga bapentin 800 MG eCW1 ([facility]) Cholecalciferol 10 MCG (400 UNIT) UNK 02/19/2020 12:00:00 AM EDT 1.0 {capsule} active Cholecalciferol 10 MCG ( 400 UNIT) eCW1 ([facility]) Bisoprolol Fumarate 5 MG Oral Tablet Bisoprolol Fumarate 5 M G 02/19/2020 12:00:00 AM EDT 1.0 {tablet} active Bi soprolol Fumarate 5 MG eCW1 ([facility]) Albuterol 0.833 MG/ML / Ipratropium Brom doyle 0.167 MG/ML Inhalant Solution Ipratropium-Albuterol 0.5-2.5 (3) MG/3ML Ipratropium-Albuterol 0.5-2.5 (3) MG/3ML 02/19/2020 12:00:00 AM EDT 3.0 {ml_as_needed} active Ipratropium-Albuterol 0.5-2.5 (3) MG/3ML eCW1 ([facility]) Cholecalciferol 10 MCG (400 UNIT) UNK 02/19/2020 12:00:00 AM EDT 1.0 {capsule} active Cholecalciferol 10 MCG ( 400 UNIT) eCW1 ([facility]) gabapentin 800 MG Oral Tablet Gabapentin 800 MG Gabapentin 8 00 MG 02/19/2020 12:00:00 AM EDT 1.0 {tablet} active Ga bapentin 800 MG eCW1 ([facility]) Cholecalciferol 10 MCG (400 UNIT) UNK 02/19/2020 12:00:00 AM EDT 1.0 {capsule} active Cholecalciferol 10 MCG ( 400 UNIT) eCW1 ([facility]) Bisoprolol Fumarate 5 MG Oral Tablet Bisoprolol Fumarate 5 M G 02/19/2020 12:00:00 AM EDT 1.0 {tablet} active Bi soprolol Fumarate 5 MG eCW1 ([facility]) Bisoprolol Fumarate 5 MG Oral Tablet Bisoprolol Fumarate 5 M G 02/19/2020 12:00:00 AM EDT 1.0 {tablet} active Bi soprolol Fumarate 5 MG eCW1 ([facility]) Cholecalciferol 10 MCG (400 UNIT) UNK 02/19/2020 12:00:00 AM EDT 1.0 {capsule} active Cholecalciferol 10 MCG ( 400 UNIT) eCW1 ([facility]) Albuterol 0.833 MG/ML / Ipratropium Brom doyle 0.167 MG/ML Inhalant Solution Ipratropium-Albuterol 0.5-2.5 (3) MG/3ML Ipratropium-Albuterol 0.5-2.5 (3) MG/3ML 02/19/2020 12:00:00 AM EDT 3.0 {ml_as_needed} active Ipratropium-Albuterol 0.5-2.5 (3) MG/3ML eCW1 ([facility]) gabapentin 800 MG Oral Tablet Gabapentin 800 MG Gabapentin 8 00 MG 02/19/2020 12:00:00 AM EDT 1.0 {tablet} active Ga bapentin 800 MG eCW1 ([facility]) gabapentin 800 MG Oral Tablet Gabapentin 800 MG Gabapentin 8 00 MG 02/19/2020 12:00:00 AM EDT 1.0 {tablet} active Ga bapentin 800 MG eCW1 ([facility]) gabapentin 800 MG Oral Tablet Gabapentin 800 MG Gabapentin 8 00 MG 02/19/2020 12:00:00 AM EDT 1.0 {tablet} active Ga bapentin 800 MG eCW1 ([facility]) gabapentin 800 MG Oral Tablet Gabapentin 800 MG Gabapentin 8 00 MG 02/19/2020 12:00:00 AM EDT 1.0 {tablet} active Ga bapentin 800 MG eCW1 ([facility]) Albuterol 0.833 MG/ML / Ipratropium Brom doyle 0.167 MG/ML Inhalant Solution Ipratropium-Albuterol 0.5-2.5 (3) MG/3ML Ipratropium-Albuterol 0.5-2.5 (3) MG/3ML 02/19/2020 12:00:00 AM EDT 3.0 {ml_as_needed} suspended Ipratropium-Albuterol 0.5-2.5 (3) MG/3ML eCW1 ([facility]) Albuterol 0.833 MG/ML / Ipratropium Brom doyle 0.167 MG/ML Inhalant Solution Ipratropium-Albuterol 0.5-2.5 (3) MG/3ML Ipratropium-Albuterol 0.5-2.5 (3) MG/3ML 02/19/2020 12:00:00 AM EDT 3.0 {ml_as_needed} active Ipratropium-Albuterol 0.5-2.5 (3) MG/3ML eCW1 ([facility]) Albuterol 0.833 MG/ML / Ipratropium Brom doyle 0.167 MG/ML Inhalant Solution Ipratropium-Albuterol 0.5-2.5 (3) MG/3ML Ipratropium-Albuterol 0.5-2.5 (3) MG/3ML 02/19/2020 12:00:00 AM EDT 3.0 {ml_as_needed} active Ipratropium-Albuterol 0.5-2.5 (3) MG/3ML eCW1 ([facility]) gabapentin 800 MG Oral Tablet Gabapentin 800 MG Gabapentin 8 00 MG 02/19/2020 12:00:00 AM EDT 1.0 {tablet} active Ga bapentin 800 MG eCW1 ([facility]) Bisoprolol Fumarate 5 MG Oral Tablet Bisoprolol Fumarate 5 M G 02/19/2020 12:00:00 AM EDT 1.0 {tablet} active Bi soprolol Fumarate 5 MG eCW1 ([facility]) Albuterol 0.833 MG/ML / Ipratropium Brom doyle 0.167 MG/ML Inhalant Solution Ipratropium-Albuterol 0.5-2.5 (3) MG/3ML Ipratropium-Albuterol 0.5-2.5 (3) MG/3ML 02/19/2020 12:00:00 AM EDT 3.0 {ml_as_needed} active Ipratropium-Albuterol 0.5-2.5 (3) MG/3ML eCW1 ([facility]) Albuterol 0.833 MG/ML / Ipratropium Brom doyle 0.167 MG/ML Inhalant Solution Ipratropium-Albuterol 0.5-2.5 (3) MG/3ML Ipratropium-Albuterol 0.5-2.5 (3) MG/3ML 02/19/2020 12:00:00 AM EDT 3.0 {ml_as_needed} suspended Ipratropium-Albuterol 0.5-2.5 (3) MG/3ML eCW1 ([facility]) Bisoprolol Fumarate 5 MG Oral Tablet Bisoprolol Fumarate 5 M G 02/19/2020 12:00:00 AM EDT 1.0 {tablet} active Bi soprolol Fumarate 5 MG eCW1 ([facility]) Bisoprolol Fumarate 5 MG Oral Tablet Bisoprolol Fumarate 5 M G 02/19/2020 12:00:00 AM EDT 1.0 {tablet} active Bi soprolol Fumarate 5 MG eCW1 ([facility]) Albuterol 0.833 MG/ML / Ipratropium Brom doyle 0.167 MG/ML Inhalant Solution Ipratropium-Albuterol 0.5-2.5 (3) MG/3ML Ipratropium-Albuterol 0.5-2.5 (3) MG/3ML 02/19/2020 12:00:00 AM EDT 3.0 {ml_as_needed} active Ipratropium-Albuterol 0.5-2.5 (3) MG/3ML eCW1 ([facility]) Cholecalciferol 10 MCG (400 UNIT) UNK 02/19/2020 12:00:00 AM EDT 1.0 {capsule} suspended Cholecalciferol 10 MCG (400 UNIT) eCW1 ([facility]) Bisoprolol Fumarate 5 MG Oral Tablet Bisoprolol Fumarate 5 M G 02/19/2020 12:00:00 AM EDT 1.0 {tablet} active Bi soprolol Fumarate 5 MG eCW1 ([facility]) gabapentin 800 MG Oral Tablet Gabapentin 800 MG Gabapentin 8 00 MG 02/19/2020 12:00:00 AM EDT 1.0 {tablet} active Ga bapentin 800 MG eCW1 ([facility]) Cholecalciferol 10 MCG (400 UNIT) UNK 02/19/2020 12:00:00 AM EDT 1.0 {capsule} active Cholecalciferol 10 MCG ( 400 UNIT) eCW1 ([facility]) Lactulose 667 MG/ML Oral Solution Lactulose 01/17/2020 12:00:00 AM EDT active MEDENT ([facility], ) Fluticasone Propionate 50 MCG/ACT Fluticasone Propionate 50 MCG/ACT 12/07/2019 12:00:00 AM EDT 1.0 {spray_in_each_nostril} acti ve Fluticasone Propionate 50 MCG/ACT eCW1 ([facility]) Fluticasone Propionate 50 MCG/ACT Fluticasone Propionate 50 MCG/ACT 12/07/2019 12:00:00 AM EDT 1.0 {spray_in_each_nostril} susp ended Fluticasone Propionate 50 MCG/ACT eCW1 ([facility]) Fluticasone Propionate 50 MCG/ACT Fluticasone Propionate 50 MCG/ACT 12/07/2019 12:00:00 AM EDT 1.0 {spray_in_each_nostril} susp ended Fluticasone Propionate 50 MCG/ACT eCW1 ([facility]) Fluticasone Propionate 50 MCG/ACT Fluticasone Propionate 50 MCG/ACT 12/07/2019 12:00:00 AM EDT 1.0 {spray_in_each_nostril} acti ve Fluticasone Propionate 50 MCG/ACT eCW1 ([facility]) Fluticasone Propionate 50 MCG/ACT Fluticasone Propionate 50 MCG/ACT 12/07/2019 12:00:00 AM EDT 1.0 {spray_in_each_nostril} acti ve Fluticasone Propionate 50 MCG/ACT eCW1 ([facility]) Fluticasone Propionate 50 MCG/ACT Fluticasone Propionate 50 MCG/ACT 12/07/2019 12:00:00 AM EDT 1.0 {spray_in_each_nostril} acti ve Fluticasone Propionate 50 MCG/ACT eCW1 ([facility]) Fluticasone Propionate 50 MCG/ACT Fluticasone Propionate 50 MCG/ACT 12/07/2019 12:00:00 AM EDT 1.0 {spray_in_each_nostril} acti ve Fluticasone Propionate 50 MCG/ACT eCW1 ([facility]) Fluticasone Propionate 50 MCG/ACT Fluticasone Propionate 50 MCG/ACT 12/07/2019 12:00:00 AM EDT 1.0 {spray_in_each_nostril} acti ve Fluticasone Propionate 50 MCG/ACT eCW1 ([facility]) Fluticasone Propionate 50 MCG/ACT Fluticasone Propionate 50 MCG/ACT 12/07/2019 12:00:00 AM EDT 1.0 {spray_in_each_nostril} acti ve Fluticasone Propionate 50 MCG/ACT eCW1 ([facility]) Fluticasone Propionate 50 MCG/ACT Fluticasone Propionate 50 MCG/ACT 12/07/2019 12:00:00 AM EDT active 1 spray in each nostril eCW1 ([facility]) Fluticasone Propionate 50 MCG/ACT Fluticasone Propionate 50 MCG/ACT 12/07/2019 12:00:00 AM EDT 1.0 {spray_in_each_nostril} acti ve Fluticasone Propionate 50 MCG/ACT eCW1 ([facility]) Fluticasone Propionate 50 MCG/ACT Fluticasone Propionate 50 MCG/ACT 12/07/2019 12:00:00 AM EDT 1.0 {spray_in_each_nostril} acti ve Fluticasone Propionate 50 MCG/ACT eCW1 ([facility]) Fluticasone Propionate 50 MCG/ACT Fluticasone Propionate 50 MCG/ACT 12/07/2019 12:00:00 AM EDT 1.0 {spray_in_each_nostril} acti ve Fluticasone Propionate 50 MCG/ACT eCW1 ([facility]) Fluticasone Propionate 50 MCG/ACT Fluticasone Propionate 50 MCG/ACT 12/07/2019 12:00:00 AM EDT active 1 spray in each nostril eCW1 ([facility]) Fluticasone Propionate 50 MCG/ACT Fluticasone Propionate 50 MCG/ACT 12/07/2019 12:00:00 AM EDT 1.0 {spray_in_each_nostril} acti ve Fluticasone Propionate 50 MCG/ACT eCW1 ([facility]) Fluticasone Propionate 50 MCG/ACT Fluticasone Propionate 50 MCG/ACT 12/07/2019 12:00:00 AM EDT 1.0 {spray_in_each_nostril} acti ve Fluticasone Propionate 50 MCG/ACT eCW1 ([facility]) Fluticasone Propionate 50 MCG/ACT Fluticasone Propionate 50 MCG/ACT 12/07/2019 12:00:00 AM EDT 1.0 {spray_in_each_nostril} acti ve Fluticasone Propionate 50 MCG/ACT eCW1 ([facility]) cefpodoxime 200 MG Oral Tablet Cefpodoxime Proxetil 20 0 MG Cefpodoxime Proxetil 200 MG 08/24/2019 12:00:00 AM EST active 1 tablet with food eCW1 ([facility]) Albuterol-Ipratropium 2.5-0.5 MG/3ML UNK 08/23/2019 12:00: 00 AM EST 3.0 {ml_as_needed} suspended Albuterol-Iprat ropium 2.5-0.5 MG/3ML eCW1 ([facility]) Albuterol-Ipratropium 2.5-0.5 MG/3ML UNK 08/23/2019 12:00:00 AM EST active 3 ml as needed eCW1 ([facility]) Albuterol-Ipratropium 2.5-0.5 MG/3ML UNK 08/23/2019 12:00:00 AM EST active 3 ml as needed eCW1 ([facility]) Albuterol-Ipratropium 2.5-0.5 MG/3ML UNK 08/23/2019 12:00: 00 AM EST 3.0 {ml_as_needed} active Albuterol-Ipratro pium 2.5-0.5 MG/3ML eCW1 ([facility]) Nebulizer/Tubing/Mouthpiece - Nebulizer/Tubing/Mouthpiece - 08/23/2019 12:00:00 AM EST active Nebulizer/Tubing/ Mouthpiece - eCW1 ([facility]) Nebulizer/Tubing/Mouthpiece - Nebulizer/Tubing/Mouthpiece - 08/23/2019 12:00:00 AM EST active Nebulizer/Tubing/ Mouthpiece - eCW1 ([facility]) Nebulizer/Tubing/Mouthpiece - Nebulizer/Tubing/Mouthpiece - 08/23/2019 12:00:00 AM EST active Nebulizer/Tubing/ Mouthpiece - eCW1 ([facility]) Nebulizer/Tubing/Mouthpiece - Nebulizer/Tubing/Mouthpiece - 08/23/2019 12:00:00 AM EST active Nebulizer/Tubing/ Mouthpiece - eCW1 ([facility]) Albuterol-Ipratropium 2.5-0.5 MG/3ML UNK 08/23/2019 12:00: 00 AM EST 3.0 {ml_as_needed} active Albuterol-Ipratro pium 2.5-0.5 MG/3ML eCW1 ([facility]) doxycycline hyclate 100 MG Oral Capsule Doxycycline Hy clate 100 MG Doxycycline Hyclate 100 MG 08/23/2019 12:00:00 AM EST active 1 capsule eCW1 ([facility]) Albuterol-Ipratropium 2.5-0.5 MG/3ML UNK 08/23/2019 12:00: 00 AM EST 3.0 {ml_as_needed} active Albuterol-Ipratro pium 2.5-0.5 MG/3ML eCW1 ([facility]) Nebulizer/Tubing/Mouthpiece - Nebulizer/Tubing/Mouthpiece - 08/23/2019 12:00:00 AM EST active Nebulizer/Tubing/ Mouthpiece - eCW1 ([facility]) Nebulizer/Tubing/Mouthpiece - Nebulizer/Tubing/Mouthpiece - 08/23/2019 12:00:00 AM EST active as directed eCW1 ([facility]) Albuterol-Ipratropium 2.5-0.5 MG/3ML UNK 08/23/2019 12:00: 00 AM EST 3.0 {ml_as_needed} active Albuterol-Ipratro pium 2.5-0.5 MG/3ML eCW1 ([facility]) Albuterol-Ipratropium 2.5-0.5 MG/3ML UNK 08/23/2019 12:00: 00 AM EST 3.0 {ml_as_needed} active Albuterol-Ipratro pium 2.5-0.5 MG/3ML eCW1 ([facility]) Nebulizer/Tubing/Mouthpiece - Nebulizer/Tubing/Mouthpiece - 08/23/2019 12:00:00 AM EST active Nebulizer/Tubing/ Mouthpiece - eCW1 ([facility]) Albuterol-Ipratropium 2.5-0.5 MG/3ML UNK 08/23/2019 12:00: 00 AM EST 3.0 {ml_as_needed} active Albuterol-Ipratro pium 2.5-0.5 MG/3ML eCW1 ([facility]) Nebulizer/Tubing/Mouthpiece - Nebulizer/Tubing/Mouthpiece - 08/23/2019 12:00:00 AM EST active Nebulizer/Tubing/ Mouthpiece - eCW1 ([facility]) Albuterol-Ipratropium 2.5-0.5 MG/3ML UNK 08/23/2019 12:00: 00 AM EST 3.0 {ml_as_needed} active Albuterol-Ipratro pium 2.5-0.5 MG/3ML eCW1 ([facility]) Nebulizer/Tubing/Mouthpiece - Nebulizer/Tubing/Mouthpiece - 08/23/2019 12:00:00 AM EST active Nebulizer/Tubing/ Mouthpiece - eCW1 ([facility]) Nebulizer/Tubing/Mouthpiece - Nebulizer/Tubing/Mouthpiece - 08/23/2019 12:00:00 AM EST active Nebulizer/Tubing/ Mouthpiece - eCW1 ([facility]) Nebulizer/Tubing/Mouthpiece - Nebulizer/Tubing/Mouthpiece - 08/23/2019 12:00:00 AM EST active as directed eCW1 ([facility]) Albuterol-Ipratropium 2.5-0.5 MG/3ML UNK 08/23/2019 12:00: 00 AM EST 3.0 {ml_as_needed} active Albuterol-Ipratro pium 2.5-0.5 MG/3ML eCW1 ([facility]) Nebulizer/Tubing/Mouthpiece - Nebulizer/Tubing/Mouthpiece - 08/23/2019 12:00:00 AM EST active Nebulizer/Tubing/ Mouthpiece - eCW1 ([facility]) Nebulizer/Tubing/Mouthpiece - Nebulizer/Tubing/Mouthpiece - 08/23/2019 12:00:00 AM EST active Nebulizer/Tubing/ Mouthpiece - eCW1 ([facility]) Nebulizer/Tubing/Mouthpiece - Nebulizer/Tubing/Mouthpiece - 08/23/2019 12:00:00 AM EST active as directed eCW1 ([facility]) Nebulizer/Tubing/Mouthpiece - Nebulizer/Tubing/Mouthpiece - 08/23/2019 12:00:00 AM EST active Nebulizer/Tubing/ Mouthpiece - eCW1 ([facility]) Prednisone 20 MG Oral Tablet PredniSONE 20 MG PredniSONE 20 MG 08/23/2019 12:00:00 AM EST active 1 tablet eCW1 ([facility]) Nebulizer/Tubing/Mouthpiece - Nebulizer/Tubing/Mouthpiece - 08/23/2019 12:00:00 AM EST active Nebulizer/Tubing/ Mouthpiece - eCW1 ([facility]) Albuterol-Ipratropium 2.5-0.5 MG/3ML UNK 08/23/2019 12:00: 00 AM EST 3.0 {ml_as_needed} active Albuterol-Ipratro pium 2.5-0.5 MG/3ML eCW1 ([facility]) Albuterol-Ipratropium 2.5-0.5 MG/3ML UNK 08/23/2019 12:00: 00 AM EST 3.0 {ml_as_needed} active Albuterol-Ipratro pium 2.5-0.5 MG/3ML eCW1 ([facility]) Albuterol-Ipratropium 2.5-0.5 MG/3ML UNK 08/23/2019 12:00: 00 AM EST 3.0 {ml_as_needed} suspended Albuterol-Iprat ropium 2.5-0.5 MG/3ML eCW1 ([facility]) Albuterol-Ipratropium 2.5-0.5 MG/3ML UNK 08/23/2019 12:00: 00 AM EST 3.0 {ml_as_needed} active Albuterol-Ipratro pium 2.5-0.5 MG/3ML eCW1 ([facility]) Albuterol-Ipratropium 2.5-0.5 MG/3ML UNK 08/23/2019 12:00:00 AM EST active 3 ml as needed eCW1 ([facility]) Nebulizer/Tubing/Mouthpiece - Nebulizer/Tubing/Mouthpiece - 08/23/2019 12:00:00 AM EST active Nebulizer/Tubing/ Mouthpiece - eCW1 ([facility]) Albuterol-Ipratropium 2.5-0.5 MG/3ML UNK 08/23/2019 12:00: 00 AM EST 3.0 {ml_as_needed} active Albuterol-Ipratro pium 2.5-0.5 MG/3ML eCW1 ([facility]) Nebulizer/Tubing/Mouthpiece - Nebulizer/Tubing/Mouthpiece - 08/23/2019 12:00:00 AM EST active Nebulizer/Tubing/ Mouthpiece - eCW1 ([facility]) Albuterol-Ipratropium 2.5-0.5 MG/3ML UNK 08/23/2019 12:00: 00 AM EST 3.0 {ml_as_needed} active Albuterol-Ipratro pium 2.5-0.5 MG/3ML eCW1 ([facility]) Spironolactone 25 MG Oral Tablet Spironolactone 25 MG active 1 tablet with food eCW1 ([facility]) Spironolactone 25 MG Oral Tablet Spironolactone 25 MG active 1 tablet with food eCW1 ([facility]) Spironolactone 25 MG Oral Tablet Spironolactone 25 MG active 1 tablet with food eCW1 ([facility]) Spironolactone 25 MG Oral Tablet Spironolactone 25 MG active 1 tablet with food eCW1 ([facility]) Spironolactone 25 MG Oral Tablet Spironolactone 25 MG active 1 tablet with food eCW1 ([facility]) Spironolactone 25 MG Oral Tablet Spironolactone 25 MG active 1 tablet with food eCW1 ([facility]) Spironolactone 25 MG Oral Tablet Spironolactone 25 MG active 1 tablet with food eCW1 ([facility]) Spironolactone 25 MG Oral Tablet Spironolactone 25 MG active 1 tablet with food eCW1 ([facility]) Spironolactone 25 MG Oral Tablet Spironolactone 25 MG active 1 tablet with food eCW1 ([facility]) Spironolactone 25 MG Oral Tablet Spironolactone 25 MG active 1 tablet with food eCW1 ([facility]) Spironolactone 25 MG Oral Tablet Spironolactone 25 MG active 1 tablet with food eCW1 ([facility]) Spironolactone 25 MG Oral Tablet Spironolactone 25 MG active 1 tablet with food eCW1 ([facility]) Spironolactone 25 MG Oral Tablet Spironolactone 25 MG active 1 tablet with food eCW1 ([facility]) Insurance Providers Payer name Policy type / Coverage type Policy ID Covered alliance party ID Covered alliance party's relationship to ramon Policy Ramon Plan Information [facility] [id number] SP [id number] [facility] [id number] S [id number] [facility] [id number] SP [id number] ANSI-Commercial [id number] ANSI-Medicaid [id number] ANSI-Commercial [id number] ANSI-Medicaid [id number] [facility] Medicaid [id number] Self [id number] [place] - Medicaid [employer] (H[employer]) [id number] Self [id number] Medicaid Medigap Part B [id number] Self [id number] [place] - Medicaid o Health Maintenance [employer] (HMO) [id number] Self [id number] ANSI-Medicaid [id number] MEDICAID [id number] SP [id number] ANSI-Medicaid [id number] ANSI-Medicaid [id number] Medicaid P [id number] S [id number] ANSI-Commercial [id number] ANSI-Medicaid [id number] ANSI-Commercial [id number] ANSI-Medicaid [id number] ANSI-Commercial [id number] ANSI-Medicaid [id number] ANSI-Medicaid [id number] ANSI-Commercial [id number] ANSI-Commercial [id number] ANSI-Commercial [id number] ANSI-Medicaid [id number] ANSI-Medicaid [id number] ANSI-Commercial [id number] ANSI-Medicaid [id number] [facility] [id number] ANSI-Commercial [id number] ANSI-Medicaid [id number] [id number]-63bb-05pa-31ds-[id number] ANSI-Medicaid [id number] 77c0s77g-26t8-7gi2-4sy4-q49ntpi9z5kp ANSI-Commercial u2917qaz-[id number] d7610wmt-9wu8-7a85-79r3-9451ez491844 ANSI-Commercial h045915w-79dj-6e7y-s127-kd50g21480q9 x461587e-70gk-5l6v-b778-eh64f67776x1 ANSI-Medicaid [id number]-g0tr-0t26-[id number] ANSI-Commercial 3g430m9t-5o22-1l5x-q7b9-6yw1f3949668 9a654p0i-1j93-1v0s-h5f9-1ec1v6738832 ANSI-Medicaid [id number]-[id number]-[id number] 88qfan03-jyut-7966-ucrz-[id number] ANSI-Commercial 3357526k-p226-72r5-h68n-v09e113w98q7 7559653f-f000-86i0-s11m-b97h166o47r1 ANSI-[employer] eg53z408-5970-9282-zi3f-9gyp1bnts9w0 zr48j747-6674-1124-am3j-3ebp0wqvx8q6 ANSIWhistle GroupCommercial l6g95916-33v1-0cqw-[id number] o0r90677-21q9-5pxd-[id number] ANSI-Medicaid [id number] [employer] [id number]-1fz9-0e10-[id number] [employer] [id number]-[id number]-n7lf-6069-ps88-xdw280cnq768 ANSI-Medicaid [id number]-[id number] ANSI-[employer] 7s90q27y-3j12-120o-izk7-k74i3cu358z0 1e67f76y-7q30-562e-lla8-o90q5pg507j7 ANSI-Commercial gffc81t9-j6p0-5uyt-x53r-455831y1rz29 zqca05m0-r3k2-4qfv-q81p-745232e1ve58 ANSI-Medicaid [id number]-k51h-[id number] ANSI-Commercial w83ci517-jm64-885s-14w1-6069v8w3i58w t62tp218-fx16-622t-90z0-2099v6w2a59y ANSI-Medicaid [id number]-[id number] ANSI-Commercial 9979g82v-bwq2-47j5-n454-d9540119v63y 3834w32p-orp6-84z5-g590-u6145691f81y ANSI-Medicaid [id number]-[id number]-1o6s-v87k-[id number] ANSI-Commercial gkrf490f-h66j-0b35-1960-6851d3ka854u jlpo729y-w57g-6e31-0547-3777u1zt113v ANSI-Commercial 0y243971-2uj0-9372-y35d-79v99bx9us3s 1f783395-5pb1-6578-r72l-10v15qf6cb3h ANSI-Medicaid [id number]-3zil-6720-5poj-514h26e3g8mv ANSI-Medicaid [id number] ANSI-Commercial 2j224075-5321-9686-nykb-1y8q6o9zg7fu 4e373825-1062-1987-vyql-7t5t8v2uw3he ANSI-Medicaid [id number]-[id number]-ju9m-74iw-[id number] ANSI-Commercial 756cti0v-629g-06j9-l660-224ft1dp73w6 527ghy3o-057c-87u8-k177-443wy5zo93s0 ANSI-Medicaid ti4henor-ix2e-[id number] dn3zlnba-ko6m-0053-[id number] ANSI-Commercial 473vs141-35j9-5rb1-vdzb-9x84342p0489 752xt526-58p5-4uw4-nrwe-8g45744f8032 ANSI-Commercial kjq2ay55-jdyi-0uk4-5111-47629h29c8rl vuz5oz34-xxez-3ku5-6038-63563i07p3rp ANSI-Medicaid [id number]-2mn0-n48w-[id number] ANSI-Medicaid [id number] 1qz8pkv0-6p74-92v2-[id number] ANSI-Commercial 12i2n7bz-9dgf-0l2n-oi0f-b965083685q6 92k4i4dg-6yds-1g9l-af9z-[id number] ANSI-Medicaid p1gm5y65-3io6-1wm7-ilf2-ec02um5jv84s u5cp8y46-9vj2-6ia1-xft7-hy14fy9vr18c ANSI-Commercial qwt03218-5j0l-5tzi-1zx2-w0738fm9l03w ydn54835-9x1r-4mjy-8zj7-r5379wu2o24x ANSI-Commercial 4fo58178-ji52-9v4f-0z59-263u53i8ace8 0qz08744-kp71-1s1d-6j40-017s10x0tdi1 ANSI-Commercial 6p39d8n0-5968-0vo6-mqf1-9l7nqiq84nm8 7c64k4d2-3566-4ed1-ymy9-7c7kcqn79wf6 [facility] [id number] s8q1xd98-288b-9738-n676-f1p2sv1k1090 [facility] [id number]-[id number] [facility] [id number] 1xprp3f7-0160-2y41-ds3h-[id number] [facility] [id number]-x1pt-[id number] [id number]-u028-5s97-a2so-h6670les1w37 ANSI-Commercial 0zc002se-w5fa-5227-5z59-klg96o54bud6 8di360ez-p0tw-2698-1n60-ndf85s58sta1 ANSI-Commercial 66a5m08r-352m-6nl3-vy39-71205qv71709 97y9v38y-042s-0uf1-cu26-28381cv13035 ANSI-Commercial 23g0c15p-056r-9453-345f-632esw4rn459 07i7x48b-651k-3485-227o-667zer8an872 ANSI-Medicaid 6881970b-pntf-0810-i40t-2r94fv2c12e3 5681730y-vpqd-2122-j34e-5c22tj4p59u8 ANSI-Medicaid [id number]1v562r3i16b ANSI-Commercial 2hpae91f-u869-0c57-306f-pv0ge90p192d 6sgum49x-q707-6w27-354t-zw1mg46u059k ANSI-Commercial i22m6794-ux48-9124-vu1o-k9376a61yd1g w35x6439-pw76-6998-pk1w-h9848b38iy0j ANSI-Medicaid [id number]-5d7l-3pc3-1062-[id number] 12rh0v5g-1l0m-4zr4-9817-r2o6hiy601ry ANSI-Commercial 92842vt6-71ju-06d3-sh78-103mm9052o25 17663rv4-56qc-25n8-of47-571if8160l91 [facility] [id number]-4600-[id number] zx24rm2t-n2gm-2732-x6x1-j37032i1f884 [facility] [id number]-[id number]-2013-5hhc-4iq6-[id number] ANSI-Medicaid [id number]-[id number] 0tw6n28z-avh9-0g14-1571-5lk4042q936x ANSI-Commercial 9d5920f2-633n-047n-38b5-l5b9u56f3014 3k7351q5-514b-025y-62f9-e2u1x10f1731 ANSI-Commercial w5r58167-7jdj-73uw-23sb-819l47e480e7 n3w33413-5lhl-18fg-83rk-571h04g698k5 ANSI-Medicaid [id number]-[id number] i9r8a7q0-3b09-20e5-[id number] ANSI-Medicaid [id number]-[id number] 1f8srcb8-09d5-1kj5-l140-274j65908dr5 ANSI-Commercial 80q9kz43-zs6n-29st-j2f7-22isq86414zn 66a9hs52-kq5j-53ue-o0n1-02qvx99003bq ANSI-Commercial yn8j8476-m917-78x5-vc8v-6s31c40263vz dg6a8863-k581-53k7-bt9l-4s54k54821oi ANSI-Medicaid [id number]-3388-8soc-7i4g-4kd2uef8cb74 802v7fio-6507-8vgp-8k9j-0ii6vgp6vs47 ANSI-Medicaid [id number]-[id number] ANSI-Commercial 0o05916y-1o43-0711-q4n0-g83l6760u61s 3u57754b-5i89-5202-s4n4-p18m1705f24a ANSI-Commercial 731mz0ox-pi3x-6k50-25l3-9y371l46i104 650mx9qc-wk1t-1e39-67p1-4b006k04d001 ANSI-Commercial 1k267439-un5x-495z-v65h-c19krk3d6cqf 7s115740-at3e-371w-s40a-g30ilv7z8del ANSI-Medicaid qu34nbhx-72y5-012i-g00i-[id number] lr76wvsu-42s1-715v-n84y-g6984ma63r3y ANSI-Commercial 2sj3aevj-73tn-23l1-86v4-ezc21q0009w2 8sg4itqf-36bw-77r0-69j9-wnw95e0641a5 ANSI-Medicaid 2s9z8u22-821c-30jh-9434-[id number] 5t8h5s82-870y-53jh-0877-b1729qm9an44 ANSI-Medicaid [id number]-p3ge-[id number] 7o54x6c7-08f7-744r-u7tf-557908u7f376 ANSI-Medicaid [id number]-z838-1p33-63bg-031xv4tj3dfc 462k2x73-f312-3m36-21nu-483oe7dp8nlq ANSI-Commercial 3i5y6c11-gp52-6k58-h4cl-u72rv0buc8k6 4f9k1b87-id40-9v04-x1vo-o20qo7yyy2v1 ANSI-Commercial 04u27977-9t3h-87n9-3j72-6hy338d2237d 57y39954-7u8p-33e2-7p57-7gl040k3049r ANSI-Medicaid [id number]-oun6o8r6gsl0 5le18im1-49p9-3l43-0197-wsc3y1l3flx6 ANSI-Medicaid [id number]-78u7-17m4-0vphu1iqnf90 u4i08961-1jzp-65o0-41h9-7lyfz8busn75 ANSI-Commercial 079500p7-72af-80e3-44t3-0410oo18qoou 364539q7-62ul-65i9-69q6-5743ux52kspp ANSI-Commercial 5b075ra9-u326-5440-31i0-5c361321671v 7e996bw4-b568-8408-76s3-0x157257056n ANSI-Commercial gli517m6-4768-8g45-7276-57nl1opgr17m tqj568n0-6734-2k82-7330-57hv5galh63z ANSI-Medicaid [id number]-1916-0t3w-h40s-3z430e2ljkjs z853p21a-1453-4x8s-m79s-8w122s3vyiry ANSI-Commercial f907y719-06mp-2q60-uj56-3t3r095cciq4 e104i257-64wk-3a45-xw05-7u5u978atmp0 ANSI-Medicaid [id number]-t435-[id number] [id number]-n050-d4i6n649bdrb ANSI-Commercial z8b104d0-0s23-1546-yf08-21efj85768o5 o7n351c1-8q71-6280-jd18-10huv43613e0 ANSI-Commercial 7394k02a-9ka0-8e31-r47i-8w5xga399766 5834v59s-1wx9-6h93-k81n-7p9tag108897 ANSI-Medicaid nklu8oy7-61c2-133g-d397-[id number] ejlm4ru9-32n8-230n-g589-vd83bj0l2gc4 ANSI-Medicaid [id number]-[id number]-m842-85a4-b76q-[id number] ANSI-Commercial 813q359p-7d1q-40k8-tj76-46g920z45644 715v847o-4o1s-19d4-qx95-05g152o02847 [facility] [id number] 595a2ilp-5862-4q51-py2j-[id number] ANSI-Medicaid [id number]-55c8-0647-k7v8-0w1xpl2lc7n7 744794ui-67z6-1350-o6p9-7c6xxr6qe2u2 ANSI-Commercial a9g7ymny-3821-626l-w65s-2c94u34g1011 z3e0wpxa-5737-896p-t94e-3s49d10u9424 ANSI-Medicaid [id number]-ho1o-1sos-c50u-2k0f8q291skz l51s91g1-jc3h-7cyk-p15k-1z9g3g724pgh ANSI-Commercial k608q8z1-bk55-02ee-0283-9n782m1f71l0 r289b6t5-ep49-33xs-3728-9l900x8a18p5 [facility] [id number]-[id number] wal325w5-3aw6-665v-l2cs-[id number] AN[facility]-[employer] hokc0989-8x1g-605a-11m0-mc784ju4t9a4 mwas3837-6k8c-985v-45o5-kp586gp3r7e3 [employer] 8525v90i-69d0-34wk-279k-870p12r92318 5968e97v-35q5-46hc-931h-080c51r58818 [employer] 14747d01-2sb6-1geq-2572-9754b4m9li43 49376a79-5cl6-6cee-6767-6904n1p8lt95 [facility] [id number]-s45z-[id number] hgj9b5jc-g59u-2fd3-1hsi-[id number] [facility] [id number] [facility] [id number]-5o5w-[id number]-7e2q-a3413ggs7g4z [employer] 813ya99n-03wu-562g-0007-a0wi63y2g6b7 185ps55w-12ez-401m-6933-n9qh44u7n0w6 [employer] o9836y99-8d7n-3g94-s183-fc20a3g25759 j8494j70-9h4k-6n58-k804-cd36t4m57941 [facility] GroupMedicaid [id number] l322j13s-z86n-1h91-5w3l-55d074vw21d0 ANSI-Medicaid [id number]-2n9k-[id number] qrz57gxl-vq61-036e-1t7z-[id number] ANSI-Commercial 7h40h61g-2r56-3me7-80y2-di681kmg8746 7w19v56f-9i55-9zu7-76v2-ce588znu5738 ANSI-Commercial 296f248m-bh41-6x69-c6m7-n3pw0871d886 816d466s-nt06-8o73-d5e0-s1iy6314y830 [facility] [id number]-t99z-[id number] [facility] [id number]-kxxf-2uk7-nn48-y3x4pp5w1h3p 78p9xel4-zbto-0bs7-eq83-n4y4ts8y3c3b [facility] [id number]-rb3w-1252-461i-[id number] ANSI-Commercial f4924481-1163-1nd7-236h-6n5by80y945r b0864291-8082-3cc1-559i-6i3gy44z560e ANSI-Commercial plf418fi-w16z-39z2-1259-3rq17qqdc6ns tyi222yr-l05x-58r5-1145-7rl67gtlj4qb ANSI-Medicaid [id number]-[id number]-e000-[id number] ANSI-Commercial 1w8mj931-687k-883e-g619-r4wl8xdx8itf 7n4jk858-456i-710w-k364-n8pd6zjf7dtj ANSI-Medicaid 72moowo1-15j0-7w0f-[id number] 56sukis5-13t3-2j2e-9381-[id number] ANSI-Commercial 93m5308j-p625-3038-xhpw-0p57t14163d1 85g1090m-c057-6872-gfec-6b25m14773a8 ANSI-Commercial in18981x-5n2f-69pu-92s1-786896j1vp5t bn02143u-3l5t-02lc-83n0-779129u8du0u ANSI-Commercial uh63p221-jxb9-47m5-3ni1-21z717rlv819 ta50y693-mqp1-24i9-8ge6-87e688cjb382 ANSI-Medicaid [id number]-[id number] 1cm50961-f985-5a2c-ua76-[id number] ANSI-Medicaid [id number]-[id number]-q321-7yj3-2v90-[id number] ANSI-Commercial 5agg769m-rl2n-6j11-z405-31xasd5064h1 8goc802z-ok2n-4v90-e188-72vtzg5364c2 ANSI-Medicaid [id number]-[id number] n45x1r76-4962-64ya-4y48-1p497jcqw397 ANSI-Commercial e45fj190-tb3c-281u-6312-3xbo1hy635jx p82ha083-pw1j-194b-6682-4ahg1aj959fb ANSI-Medicaid [id number]-cota-[id number] 0j57xi91-1834-12qp-qhwq-97x5c06z2ut7 ANSI-Medicaid [id number]-2921-h1ar-[id number] 4yt2ey15-041x-3022-j4va-nyq75a7461r4 ANSI-Medicaid [id number]-[id number]-[id number] 65k2271d-t28w-073b-[id number] [employer] p5ixpns3-sn31-9520-9nw7-4151pi1a5t1n l2elvsm0-ps96-8504-2pr6-4881hs1c0d4y [employer] 00465by0-9h6g-53k3-ea80-gv41174q7kv3 41147zo3-6u2p-32f8-ju53-om61723h2am1 [employer] 0a412969-c5a2-5j5a-7695-f363308766c1 6i932829-f0l3-5n1g-8751-f400048218w5 [employer] 57v58dx0-851y-605j-w1j3-99l4w691e7gh 00v98ny4-336m-906k-t6h7-97r5b595h3di ANSI-Medicaid [id number]-1441-s387-[id number] ANSI-Medicaid [id number]-i6zf-[id number] [employer] b78o399b-6rx1-763h-0yl6-64xqi419057d w57t013d-0wz8-814o-5sl5-31myd386424i [employer]Med[facility] [id number] tj509209-7146-8i9d-[id number] [facility]Wh[facility] GroupCommercial 589z39ia-2n0k-6s73-y532-81u0a6y2p31f 760m80mq-7y5e-8o72-g586-07e7o9e2c76u [facility]SIWh[facility] GroupMedicaid [id number] qyfqd8b2-8779-0026-[id number] [employer] 3583mv1m-l12d-05e4-0444-1475555vx8w6 5700ah6y-p39b-31d2-0141-4067680lu5z7 ANSI-Medicaid [id number]-e3md-25w2-[id number] ex1bs7fr-q1qt-37g7-t8w6-[id number] [employer] 93794h5v-6l50-45vq-3858-9594u54145k0 68833g9r-6u24-35ym-9617-1647y12457h1 ANSI-Medicaid [id number]-103c-fqx8-g1k1j87i2u8p 052h290a-bf0f-067l-qmv6-d3r0u92h3x5r [employer] nb2125vc-1x54-6lai-8d15-xo71ck21dc8z eq0138ht-6a15-6oim-2p35-wi63yr86xd7y [employer]-Medicaid [id number]-g075-2273-r73p-[id number] ANSI-Medicaid [id number]-32i2-3w2b-f36u-t0m55sm2h8x3 [id number]-78u6-2k9x-l30m-g8u35br5a3v8 [employer] 6dde3p36-25u6-34sx-xq1o-3k7703i7oc67 5itn4f68-45k8-77am-hy1w-0t7994a3ox54 ANSI-Medicaid [id number]-mvgp-9520-je99-[id number] l66825kx-eibx-6751-zw92-kyy5o627yy9v [employer] 3q260723-1q92-1z56-z151-sw5qdr61o96e 8p983129-2n50-9t42-y840-hj2one39b01o ANSI-Commercial l4b949n2-fc48-5txl-h304-z58026w74077 o1z106d8-ha87-9ltf-p129-y10035w05921 ANSI-Medicaid [id number]-jcv9-gj998st0q9j1 i539jk16-9zj9-7f99-hkj0-ix002xa3u0s1 ANSI-Medicaid [id number]-r3wm-3f458ia8kbab [id number]-e358-84w2-k8cb-4g354by3bxhb ANSI-Commercial 6lr7514b-1m90-8zf8-f36t-3ha8981in743 6cl5719m-2z05-5nj0-a50q-8ru5978ng250 ANSI-Commercial 831967i2-7ws1-7605-ut1f-b2736w44771j 620048f5-2oa0-5940-gq3n-t8376r82778g ANSI-Medicaid [id number]-o233-2wu4tn850921 ANSI-Medicaid [id number]-p936-[id number] mj3942v8-0482-1889-e734-q27ak578q86e ANSI-Medicaid [id number]-btg0-10yi-69wq-[id number] z0x9nb66-amk3-94xa-95jl-2g636o53z682 ANSI-Commercial nyuv42jj-0yd4-48oi-yqg1-c33x4i22umj9 sqze93ge-9fl9-03rx-kjb7-o71p2g87yzm8 ANSI-Commercial u0m58ksv-li57-6456-214t-9028099fp062 b7i61joe-wi34-8179-175l-7509727fu567 ANSI-Commercial 7z9816m6-c29b-6r78-718s-49xuq1v87986 8z2875d4-f73u-0c53-725e-71jgy0z60708 ANSI-Medicaid [id number] 84978p9j-0185-06xr-a286-59ki10x80252 ANSI-Medicaid [id number]-3343-m8lx-m5vy7v54uj8m 44i5s3g8-130m-3313-u4ew-k3dj7d00am2y ANSI-Commercial 449lckwt-w883-199ce882-284s-2b73-irvj1j0m9t47 814vhkye-a589-419wl082-475o-2p62-ypwh5t8u7g86 ANSI-Medicaid [id number]-[id number] o549787g-376p-2o11-e502-3kaui1ox92r1 ANSI-Commercial uk62856h-0299-6089-4308-b642j158nc95 ax04992f-5998-3472-8217-m696u874dx49 ANSI-Medicaid 70c9q2u2-9euk-81i6-7451-[id number] 35l5e6y1-7ltf-83k6-6510-x03q334g1d1z ANSI-Commercial xr57v572-87c8-2r74-718f-9677ma664lj7 cc14o184-10w2-2u26-336v-9312fv170eg1 ANSI-Medicaid [id number]-[id number] 94gc40y9-7858-0z1u-f255-71831981b11c ANSI-Commercial 8p5z2524-9rh4-2493-r960-15yt2m691453 5z2s4191-0ss2-8484-q572-29hn9o469470 ANSI-Medicaid [id number]-m59b-9vo9-7047-[id number] 9015jd5t-i45t-9vk3-5169-kn37p37xzwv1 ANSI-Commercial 8b757b44-ofb8-65y8-07v0-fd9ys8w34285 6h585a33-agh8-15s3-74g7-ut5vy9x93958 ANSI-Medicaid [id number]-[id number] i1x304r3-4s83-31v5-5rjo-4b7b73iz395r ANSI-Commercial 6is23c2a-0873-177p-g5t4-es16u7ez327o 8vl05y2d-8185-072i-o3x7-aq90g8mf495f ANSI-Medicaid [id number]-jy12-2q45-wtx3-t86b996qlrh4 359471o6-xv19-0q13-fcy1-c99x235sgbb2 ANSI-Commercial r784yjap-20r5-84n1-n2yc-537707q7585q v131chof-35v2-80e2-y5fj-084412m2956u ANSI-Medicaid [id number]-[id number] d72c4exe-188i-2016-et83-94dm5p3i6504 ANSI-Medicaid vum62cdy-84p3-8420-i57z-[id number] pqk64nts-53a0-2629-g77k-[id number] ANSI-Commercial 1625g6k0-y36j-8m80-5wyl-r20hy80ct6lg 6525z0r7-n74h-4q32-0bey-e90kx76cw1hx ANSI-Commercial t7f71p67-s8uh-1wgb-3fxf-69639l9o1h14 y8h63u65-s3nw-5qgj-2enq-38594h6r0h27 ANSI-Medicaid 8o7vju28-u74e-26ro-[id number] 2u0hxk74-f79i-06rs-h15k-0f6193f078iu ANSI-Commercial ol8qk5h2-r200-446s-n663-157t70vc6257 zl3rc0f4-m759-427h-b513-426x75qv3754 ANSI-Commercial y3433d90-7949-0022-zz89-0679qp7d05zm s4439b04-3482-5396-li30-0134tv2m91sh ANSI-Medicaid [id number]-gf9x-[id number] 1t58o68n-px2d-0h93-42au-0111q9whn7c5 ANSI-Medicaid [id number]-f864-20ek-3c6c-[id number] 05cq8e83-t460-96jn-[id number] [employer] [id number] [employer] [id number] [employer] dfx7u5q7-3575-5m05-wxs1-21e5g4v5u780 vxr1i7k0-3593-7p35-ttw7-96a1g2o3g337 [employer] [id number]-286f-[id number] ANSI-Medicaid [id number] [employer] [id number]-l51s-5h99-0f8n-[id number] 287w3d51-e46m-4e73-7d7r-[id number] ANSI-Medicaid [id number] [facility]-Commercial [id number]-p39n-3m03-9yz8-hod8lnazz6bv [id number]-n33p-1b08-2ef4-heo4kwkdn7ue [facility]-Medicaid [id number] [facility]-Medicaid [id number] ANS-[facility] [id number]-5dg1-1682-rn6h-[id number] [facility]-Commercial [id number]-y740-97y5-59l3-60g6317p7w66 6jmm2o0n-a449-01w4-05h5-12s1061c7h26 ANSI-Medicaid [id number] ANSI-Medicaid [id number] ANS-Commercial [id number] [facility]-Medicaid [id number] [facility]-Medicaid [id number] ANSI-Commercial [id number]-l604-591d-r730-mn0346t603s8 i89s0q50-v741-481d-x757-cu0533a386e2 ANSI-Commercial 26275v4f-64td-071n-57g0-66ko1552374r 33184k4e-80nq-320u-45h5-69sr4537256g ANSI-Commercial 5346638i-5737-0454-w3j1-5v53748uo23t 0742207o-7267-5338-t2h6-5d53631px85k ANSI-Commercial d57v62bv-236x-0ofp-u477-3x870g19838q a17m97fj-296l-0kdu-i144-6t258p54767n ANSI-Medicaid [id number] ANSI-Medicaid [id number] ANSI-Medicaid [id number] ANSI-Commercial [id number]-493q63r83f51 4355d8j3-9qa1-2496-2k1b-062w89f49m69 ANSI-Commercial 79lp474h-8d22-9479-46t2-1605d7d37igq 02ta568a-9q90-5920-62a5-2583k7h97fsr ANSI-Medicaid [id number] [facility] [id number] ANSI-Commercial [id number]-t886-87s6-[id number] m5t07m42-r787-45i6-w3h1-14757714es19 ANSI-Commercial h0sz0336-lu93-0659-t8l0-8vaj9o2182gy s7vn9686-cp70-5594-c1y5-5ufk1g7315fq [facility] [id number] [facility] [id number] [facility] 3y9tmwga-t9lh-791w-2532-3z03928q54g9 0b5uzavc-a3lb-759s-[id number] [facility] [id number] ANSI-Commercial [id number]-[id number] g8u74218-98m2-8733-573f-k74589680wl9 ANSI-Commercial [id number]-cc2v-5yer21461vol 8k062nl5-4w10-7q2q-vm7z-6vel06908uuu [facility] [id number] ANSI-Commercial [id number]-azi1-15m9-yd24-282b5bh1139j [id number]-onv6-78q0-rv89-229b4bo3097y [facility]-Medicaid [id number] [facility]-Medicaid [id number] ANSI-Commercial [id number]-e3i8-[id number] 5e5i0i42-55w5-2p0m-m9k4-q1mxq040i739 ANSI-Commercial njes5w0d-n378-85hp-2j9u-7488ly51hy0f ybav5c8c-z524-63hg-0u6c-6369ve17mg3s [facility]-Medicaid [id number] ANSI-Commercial hgpye438-ie81-4u82-220j-i609zyk6bg21 jufmy498-st62-9v18-157q-d680ran2eh12 ANSI-Commercial rt75v20b-rh74-483j-2i35-cdl8905e2p0p pj92y55q-rf50-133m-0p97-scp4475l2c8h [facility]-Medicaid [id number] [facility]-Medicaid [id number] [facility]-Medicaid [id number] [facility]-Commercial [id number]-ur6s-[id number]-wg6y-[id number] [facility]-Medicaid [id number] Problems, Conditions, and Diagnoses Code Display Name Description Problem Type Effective Dates Data Source(s) I89.0 089857026 Lymphedema Problem 09/10/2020 12:00:00 AM ES T eCW1 ([facility]) M81.0 84151187 Age-related osteoporosis without current pathological fracture Problem 07/09/2020 12:00:00 AM EDT eCW1 ([facility]) 420007174 Chronic diastolic heart failure Chronic diastoli c heart failure Problem 04/02/2020 12:00:00 AM EDT MED[facility] ([facility]) 977720486 Edema Edema Problem 04/02/2020 12:00:00 AM ED T MEDENT ([facility]) 465550045 Electrocardiogram abnormal Electrocardiogram abnormal Problem 04/02/2020 12:00:00 AM EDT [facility] ([facility]) 394557029 Dietary management surveillance Dietary manageme nt surveillance Problem 04/02/2020 12:00:00 AM EDT MED[facility] ([facility]) 827102725 Paroxysmal atrial fibrillation Paroxysmal atrial fibri llation Problem 04/02/2020 12:00:00 AM EDT MEDENT ([facility]) I50.32 Chronic diastolic heart failure Chronic diastolic hear t failure Problem 12/07/2019 12:00:00 AM EDT eCW1 ([facility]) J31.0 87179715 Chronic rhinitis Problem 12/07/2019 12:00:00 AM EDT eCW1 ([facility]) J31.0 11562519 Chronic rhinitis Problem 12/07/2019 12:00:00 AM EDT eCW1 ([facility]) I50.32 Chronic diastolic heart failure Chronic diastolic hear t failure Problem 12/07/2019 12:00:00 AM EDT eCW1 ([facility]) J96.11 242796745 Chronic respiratory failure with hypoxia Problem 09/23/2019 12:00:00 AM EST eCW1 ([facility]) D73.1 89954424 Hypersplenism Problem 09/23/2019 12:00:00 AM EST eCW1 ([facility]) D61.818 652504693 Pancytopenia Problem 09/23/2019 12:00:00 AM EST eCW1 ([facility]) I48.91 82758299 Atrial fibrillation, unspecified type Pro blem 09/23/2019 12:00:00 AM EST eCW1 ([facility]) Z87.01 651061459 Hx of bacterial pneumonia Problem 09/23/2019 12:00:00 AM EST eCW1 ([facility]) Z87.19 013019548 H/O: UGI bleed Problem 09/23/2019 12:00:00 A M EST eCW1 ([facility]) J96.11 856070080 Chronic respiratory failure with hypoxia Problem 09/23/2019 12:00:00 AM EST eCW1 ([facility]) D73.1 17258447 Hypersplenism Problem 09/23/2019 12:00:00 AM EST eCW1 ([facility]) D61.818 188210196 Pancytopenia Problem 09/23/2019 12:00:00 AM EST eCW1 ([facility]) I48.91 64392349 Atrial fibrillation, unspecified type Pro blem 09/23/2019 12:00:00 AM EST eCW1 ([facility]) Z87.01 294681323 Hx of bacterial pneumonia Problem 09/23/2019 12:00:00 AM EST eCW1 ([facility]) Z87.19 310241495 H/O: UGI bleed Problem 09/23/2019 12:00:00 A M EST eCW1 ([facility]) Surgeries/Procedures Procedure Description Date Indications Data Source(s) Immunization: Flublok Quadrivalent (18 years & older) 0.5mL IM (Influenza) 07/09/2020 12:00:00 AM EDT eCW1 ([facility]) ECG ROUTINE ECG W/LEAST 12 LDS W/I&R 04/02/2020 12:00: 00 AM EDT MEDENT ([facility]) Albuterol, up to 2.5 mg and ipratropium bromide, up to 0.5 mg, fda-approved final product, non-compounded, administered through dme 08/23/2019 12:00:00 AM EST eCW1 ([facility]) AIRWAY INHALATION TREATMENT 08/23/2019 12:00:00 AM EST eCW1 ([facility]) RADEX HAND MINIMUM 3 VIEWS 08/03/2019 12:00:00 AM EST MEDENT ([facility]) Results ID Date Data Source [id number] 09/19/2020 10:41:00 PM EST [facility] Name Value Range Interpretation Code Description Data Skyla rce(s) Supporting Document(s) SARS coronavirus 2 RNA [Presence] in Res piratory specimen by CHARLES with probe detection NEGATIVE [facility] This lab was ordered by [facility] a nd reported by [facility]. ID Date Data Source LACTIC ACID LEVEL, LACTATE 09/10/2020 12:00:00 AM EST eCW1 ( [facility]) Name Value Range Interpretation Code Description Data Skyla rce(s) Supporting Document(s) LACTIC ACID LEVEL, LACTATE eCW 1 ([facility]) ID Date Data Source C REACTIVE PROTEIN QUANTITATIV (At [facility]) 09/10/2020 12:00 :00 AM EST eCW1 ([facility]) Name Value Range Interpretation Code Description Data Skyla rce(s) Supporting Document(s) 0.66 0.00-0.30 C REACTIVE PROTEIN QUANTI TATIV eCW1 ([facility]) ID Date Data Source Comprehensive Metabolic Profile (CMP) 09/10/2020 12:00:00 AM EST eCW1 ([facility]) Name Value Range Interpretation Code Description Data Skyla rce(s) Supporting Document(s) 82 70-100 GLUCOSE, FASTING eCW1 ([facility]) 14 7-18 BLOOD UREA NITROGEN eCW1 ([facility]) 0.78 0.55-1.30 CREATININE FOR GFR eCW1 ([facility]) 4.1 3.5-5.1 POTASSIUM SERUM eCW1 ([facility]) 139 136-145 SODIUM LEVEL eCW1 ([facility]) > 60.0 >45 GLOMERULAR FILTRATION RATE eCW 1 ([facility]) 108 98-107 CHLORIDE LEVEL eCW1 ([facility]) 9.0 8.8-10.2 CALCIUM LEVEL eCW1 ([facility]) 28 21-32 CARBON DIOXIDE LEVEL eCW1 ([facility]) 113 45-117 ALKALINE PHOSPHATASE eCW1 ([facility]) 18 12-78 ALT/SGPT eCW1 ([facility]) 31 7-37 AST/SGOT eCW1 ([facility]) 3.2 3.2-5.2 ALBUMIN eCW1 ([facility]) 5.9 6.4-8.2 TOTAL PROTEIN eCW1 ([facility]) 1.0 0.2-1.0 BILIRUBIN,TOTAL eCW1 ([facility]) 1.2 1.2-2.2 ALBUMIN/GLOBULIN RATIO eCW1 ([facility]) ID Date Data Source CBC with Differential 09/10/2020 12:00:00 AM EST eCW1 ([facility]) Name Value Range Interpretation Code Description Data Skyla rce(s) Supporting Document(s) 3.2 4.0-10.0 WHITE BLOOD COUNT eCW1 ([facility]) 3.38 4.00-5.40 RED BLOOD COUNT eCW1 ([facility]) 9.5 12.0-15.5 HEMOGLOBIN eCW1 ([facility]) 33.0 36.0-47.0 HEMATOCRIT eCW1 ([facility]) 28.1 27.0-33.0 MEAN CORPUSCULAR HEMOGLOB IN eCW1 ([facility]) 97.6 80.0-96.0 MEAN CORPUSCULAR VOLUME e CW1 ([facility]) 16.2 11.5-14.5 RED CELL DISTRIBUTION WID TH eCW1 ([facility]) 28.8 32.0-36.5 MEAN CORPUSCULAR HGB CONC eCW1 ([facility]) 61 150-450 PLATELET COUNT, AUTOMATED eCW1 ([facility]) 74.2 36.0-66.0 NEUTROPHILS % eCW1 ([facility]) 16.8 24.0-44.0 LYMPH % eCW1 ([facility]) 5.9 0.0-5.0 MONO % eCW1 ([facility]) 2.2 0.0-3.0 EOS % eCW1 ([facility]) 0.3 0.0-1.0 BASO % eCW1 ([facility]) 2.4 1.5-8.5 NEUTROPHILS # eCW1 ([facility]) 0.5 1.5-5.0 LYMPH # eCW1 ([facility]) 0.2 0.0-0.8 MONO # eCW1 ([facility]) 0.0 0.0-0.2 BASO # eCW1 ([facility]) 0.1 0.0-0.5 EOS # eCW1 ([facility]) ID Date Data Source [id number] 03/21/2020 02:19:00 PM EDT MEDENT ([facility]) Name Value Range Interpretation Code Description Data Skyla rce(s) Supporting Document(s) Calcium [Mass/volume] in Serum or Plasma 9.0 MEDENT ([facility]) Albumin [Mass/volume] in Serum or Plasma 3.0 MEDENT ([facility]) Alanine aminotransferase [Enzymatic activity/volume] in Serum or Pl asma 21 MEDENT ([facility]) Chloride [Moles/volume] in Serum or Plasma 113 MEDENT ([facility]) Carbon dioxide, total [Moles/volume] in Serum or Plasma 25 MEDENT ([facility]) Potassium [Moles/volume] in Serum or Plasma 3.8 MEDENT ([facility]) Alkaline phosphatase [Enzymatic activity/volume] in Serum or Plasma 1 02 MEDENT ([facility]) Protein [Mass/volume] in Serum or Plasma 5.8 MEDENT ([facility]) Sodium 143 [facility] Aspartate aminotransferase [Enzymatic activity/volume] in Serum or Plasma 27 MEDENT ([facility]) Creatinine For GFR 0.72 [facility] ([facility] Urea nitrogen [Mass/volume] in Serum or Plasma 18 MEDENT ([facility]) Glucose 97 70-100 MEDENT [facility] ID Date Data Source [id number] 03/21/2020 02:19:00 PM EDT MEDENT ([facility] Name Value Range Interpretation Code Description Data Skyla rce(s) Supporting Document(s) White Blood Count 3.7 4.0-10.0 MEDENT ([facility]) Red Blood Count 3.96 4.00-5.40 MED[facility] ([facility]) Hemoglobin 13.1 MED[facility] ([facility]) Platelets 61 150-450 MEDENT ([facility]) Hematocrit 39.9 MEDENT ([facility]) ID Date Data Source [id number] 02/13/2020 09:38:00 AM EDT [facility]) Name Value Range Interpretation Code Description Data Skyla rce(s) Supporting Document(s) Hepatitis A virus IgG Ab [Units/volume] in Serum Laboratory test result Abnormal (applies to non-numeric results) [facility] ([facility], ) Performed at: RN - [facility] [address] [id number] Welder Helper: Selene Garrido MD, Phone: [phone] Hepatitis B virus surface Ab [Presence] in Serum by mey Laboratory test result Normal (applies to non-numeric results) [facility] ([facility]) Cyjke-2-Vcocixiipti [Mass/volume] in Serum or Plasma 4.4 ng/mL Normal (applies to non-numeric results) [facility] ([facility]) THE AFP ASSAY IS PERFORMED ON THE [employer] BY CHEMILUMINESCENCE AND SHOULD NOT BE COMPARED [...] % 0.0-9.59 Normal (applies to non-numeric results) [facility]) ID Date Data Source [id number] 02/13/2020 09:38:00 AM EDT [facility]) Name Value Range Interpretation Code Description Data Skyla rce(s) Supporting Document(s) Creatinine For GFR 0.74 mg/dL 0.55-1.30 Normal (applies to non -numeric results) [facility] ([facility]) Glomerular Filtration Rate Laboratory test result Normal (applies to non- numeric results) [facility]) <content>Units are mL/min/1.73 m2</content>
<content></content>
<content>Chronic Kidney Disease Staging per NKF:</content>
<content></content>
<content>Stage I & II GFR >=60 Normal to Mildly Decreased</content>
<content>Stage III GFR 30- 59 Moderately Decreased</content>
<content>Stage IV GFR 15-29 Severely Decreased</content>
<content>Stage V GFR <15 Very Little GFR Left</content>
<content>ESRD GFR <15 on HEEL SEWER</content>
<content></content> ID Date Data Source [id number] 02/13/2020 09:38:00 AM EDT [facility]) Name Value Range Interpretation Code Description Data Skyla rce(s) Supporting Document(s) Urea nitrogen [Mass/volume] in Serum or Plasma 17 mg/dL 7 -18 Normal (applies to non-numeric results) [facility]) ID Date Data Source [id number] 02/13/2020 09:38:00 AM EDT [facility]) Name Value Range Interpretation Code Description Data Skyla rce(s) Supporting Document(s) Inr 1.22 Normal (applies to non-numeric resul ts) [facility] ([facility]) THERAPUTIC HUMAN INR VALUES INDICATIONS NORMAL RANGES PROPHYLAXIS/TREATMENT OF: VENOUS THROMBOSIS 2.0-3.0 PULMONARY EMBOLISM 2.0-3.0 PREVENTION OF SYSTEMIC EMBOLISM FROM: TISSUE HEART VALVES 2.0-3.0 ACUTE MYOCARDIAL INFARCTION 2.0-3.0 VALVULAR HEART DISEASE 2.0-3.0 ATRIAL FIBRILLATION 2.0-3.0 MECHANICAL VALVES(HIGH RISK) 2.5-3.5 RECURRENT MYOCARDIAL INFARCTION 2.5-3.5 Prothrombin Time 15.1 s 11.8-14.0 Above high normal [facility]) Partial Thromboplastin Time 30.4 s 25.0-38.4 Norm al (applies to non-numeric results) [facility]) ID Date Data Source [id number] 02/13/2020 09:38:00 AM EDT [facility]) Name Value Range Interpretation Code Description Data Skyla rce(s) Supporting Document(s) Total Iron Binding Capacity 345 ug/dL 250-450 Norm al (applies to non-numeric results) [facility] ([facility]) Iron (Fe) 127 ug/dL 50-170 Normal (applies to non-numeric resul ts) [facility] ([facility]) Percent Saturation 36.8 % 13.2-45.0 Normal (applies to non-numer ic results) [facility]) ID Date Data Source [id number] 02/13/2020 09:38:00 AM EDT [facility]) Name Value Range Interpretation Code Description Data Skyla rce(s) Supporting Document(s) Ferritin [Mass/volume] in Serum or Plasma 19 ng/mL 8-252 Normal (applies to non- numeric results) [facility]) ID Date Data Source [id number] 02/13/2020 09:38:00 AM EDT [facility]) Name Value Range Interpretation Code Description Data Skyla rce(s) Supporting Document(s) Red Blood Count 4.17 10 4.00-5.40 Normal (applies to non-numeric results) [facility] ([facility]) White Blood Count 3.4 10 4.0-10.0 Below low normal M EDENT ([facility]) Hemoglobin 13.2 g/dL 12.0-15.5 Normal (applies to non-numeric resul ts) [facility] ([facility]) Mean Corpuscular Hemoglobin 31.7 pg 27.0-33.0 Norm al (applies to non-numeric results) [facility] ([facility]) Hematocrit 41.2 % 36.0-47.0 Normal (applies to non-numeric resul ts) [facility]) Mean Corpuscular Volume 98.8 fl 80.0-96.0 Above high [facility] Platelet Count, Automated 63 10 150-450 Below low normal MED[facility] ([facility]) Mean Corpuscular HGB Conc 32.0 g/dL 32.0-36.5 Normal (applies to non-numeric results) [facility] ([facility]) Red Cell Distribution Width 14.6 % 11.5-14.5 Above high normal [facility] ([facility]) Eos % 5.7 % 0.0-3.0 Above high normal [facility] ([facility]) [place] % 6.5 % 0.0-5.0 Above high normal [facility] ([facility]) Lymph % 20.2 % 24.0-44.0 Below low normal [facility] ( [facility]) Neutrophils % 67.0 % 36.0-66.0 Above high normal MEDE NT ([facility]) Nucleated Red Blood Cell % 0.0 % 0-0 Normal (applies to n on-numeric results) [facility] ([facility]) Immature Granulocyte % 0.3 % 0-3.0 Normal (applies to non-n umeric results) [facility] Baso % 0.3 % 0.0-1.0 Normal (applies to non-numeric resul ts) [facility] ([facility]) Lymph # 0.7 10 1.5-5.0 Below low normal [facility] ( [facility]) Eos # 0.2 10 0.0-0.5 Normal (applies to non-numeric resul ts) [facility]) [place] # 0.2 10 0.0-0.8 Normal (applies to non-numeric resul ts) [facility] ([facility]) Neutrophils # 2.3 10 1.5-8.5 Normal (applies to non-numeric re sults) [facility] ([facility]) Baso # 0.0 10 0.0-0.2 Normal (applies to non-numeric resul ts) [facility]) ID Date Data Source [id number] 10/10/2019 02:04:00 PM EST [facility]) Name Value Range Interpretation Code Description Data Skyla rce(s) Supporting Document(s) Oailq-9-Ksltibpcraz [Mass/volume] in Serum or Plasma 4.4 ng/mL Normal (applies to non-numeric results) [facility]) THE AFP ASSAY IS PERFORMED ON THE [employer] BY CHEMILUMINESCENCE AND SHOULD NOT BE COMPARED [...] % 0.0-9.59 Normal (applies to non-numeric results) [facility] ([facility]) Blood group antibodies identified in Serum or Plasma Laboratory test result Normal (applies to non-numeric results) [facility]) ID Date Data Source [id number] 10/10/2019 02:04:00 PM EST [facility]) Name Value Range Interpretation Code Description Data Skyla rce(s) Supporting Document(s) Prothrombin Time 14.6 s 11.8-14.0 Above high normal M EDENT ([facility]) Partial Thromboplastin Time 29.7 s 25.0-38.4 Norm al (applies to non-numeric results) [facility] ([facility]) Inr 1.17 Normal (applies to non-numeric resul ts) [facility]) THERAPUTIC HUMAN INR VALUES INDICATIONS NORMAL RANGES PROPHYLAXIS/TREATMENT OF: VENOUS THROMBOSIS 2.0-3.0 PULMONARY EMBOLISM 2.0-3.0 PREVENTION OF SYSTEMIC EMBOLISM FROM: TISSUE HEART VALVES 2.0-3.0 ACUTE MYOCARDIAL INFARCTION 2.0-3.0 VALVULAR HEART DISEASE 2.0-3.0 ATRIAL FIBRILLATION 2.0-3.0 MECHANICAL VALVES(HIGH RISK) 2.5-3.5 RECURRENT MYOCARDIAL INFARCTION 2.5-3.5 ID Date Data Source [id number] 10/10/2019 02:04:00 PM EST [facility] ([facility]) Name Value Range Interpretation Code Description Data Skyla rce(s) Supporting Document(s) Blood Type Laboratory test result Normal (applies to non-n umeric results) [facility] ([facility]) Blood group antibody screen [Presence] in Serum or Prasad sma Laboratory test result Normal (applies to non-numeric results) [facility]) ID Date Data Source [id number] 10/10/2019 02:04:00 PM EST [facility] ([facility]) Name Value Range Interpretation Code Description Data Skyla rce(s) Supporting Document(s) Glomerular Filtration Rate Laboratory test result Normal (applies to non- numeric results) [facility]) <content>Units are mL/min/1.73 m2</content>
<content></content>
<content>Chronic Kidney Disease Staging per NKF:</content>
<content></content>
<content>Stage I & II GFR >=60 Normal to Mildly Decreased</content>
<content>Stage III GFR 30- 59 Moderately Decreased</content>
<content>Stage IV GFR 15-29 Severely Decreased</content>
<content>Stage V GFR <15 Very Little GFR Left</content>
<content>ESRD GFR <15 on HEEL SEWER</content>
<content></content> Creatinine For GFR 0.83 mg/dL 0.55-1.30 Normal (applies to non -numeric results) [facility] ([facility]) ID Date Data Source [id number] 10/10/2019 02:04:00 PM EST [facility] ([facility]) Name Value Range Interpretation Code Description Data Skyla rce(s) Supporting Document(s) Urea nitrogen [Mass/volume] in Serum or Plasma 17 mg/dL 7 -18 Normal (applies to non-numeric results) [facility] ([facility]) ID Date Data Source [id number] 10/10/2019 02:04:00 PM EST [facility] ([facility]) Name Value Range Interpretation Code Description Data Skyla rce(s) Supporting Document(s) White Blood Count 4.0 10 4.0-10.0 Normal (applies to non-numeri c results) [facility] ([facility]) Red Blood Count 4.00 10 4.00-5.40 Normal (applies to non-numeric results) [facility] ([facility]) Mean Corpuscular Volume 90.3 fl 80.0-96.0 Normal ( applies to non-numeric results) [facility] ([facility]) Hemoglobin 10.1 g/dL 12.0-15.5 Below low normal [facility] ( [facility]) Hematocrit 36.1 % 36.0-47.0 Normal (applies to non-numeric resul ts) [facility] ([facility]) Red Cell Distribution Width 18.3 % 11.5-14.5 Above high normal [facility] ([facility]) Mean Corpuscular Hemoglobin 25.3 pg 27.0-33.0 Below low normal [facility] ([facility]) Mean Corpuscular HGB Conc 28.0 g/dL 32.0-36.5 Below low normal [facility] ([facility]) Platelet Count, Automated 85 10 150-450 Below low normal [facility] ([facility]) Lymph % 26.1 % 24.0-44.0 Normal (applies to non-numeric resul ts) [facility] ([facility]) Neutrophils % 63.6 % 36.0-66.0 Normal (applies to non-numeric re sults) [facility] ([facility]) [place] % 5.5 % 0.0-5.0 Above high normal [facility] ([facility]) Baso % 0.5 % 0.0-1.0 Normal (applies to non-numeric resul ts) [facility] ([facility]) Nucleated Red Blood Cell % 0.0 % 0-0 Normal (applies to n on-numeric results) [facility] ([facility]) Eos % 4.0 % 0.0-3.0 Above high normal [facility] ([facility]) Immature Granulocyte % 0.3 % 0-3.0 Normal (applies to non-n umeric results) [facility] ([facility]) Neutrophils # 2.5 10 1.5-8.5 Normal (applies to non-numeric re sults) [facility] ([facility]) [place] # 0.2 10 0.0-0.8 Normal (applies to non-numeric resul ts) [facility] ([facility]) Lymph # 1.0 10 1.5-5.0 Below low normal [facility] ( [facility]) Baso # 0.0 10 0.0-0.2 Normal (applies to non-numeric resul ts) [facility] ([facility]) Eos # 0.2 10 0.0-0.5 Normal (applies to non-numeric resul ts) [facility] ([facility]) Procedure Social History Code Duration Value Status Description Data Source(s ) Smoking 09/10/2020 12:00:00 AM EST Never Smoker completed Never S moker eCW1 ([facility]) Smoking 09/10/2020 12:00:00 AM EST Never Smoker completed Never S moker eCW1 ([facility]) Smoking 08/21/2020 12:00:00 AM EST Never Smoker completed Never S moker eCW1 ([facility]) Smoking 08/21/2020 12:00:00 AM EST Never Smoker completed Never S moker eCW1 ([facility]) Smoking 08/21/2020 12:00:00 AM EST Never Smoker completed Never S moker eCW1 ([facility]) Smoking 08/21/2020 12:00:00 AM EST Never Smoker completed Never S moker eCW1 ([facility]) Smoking 07/09/2020 12:00:00 AM EDT Never Smoker completed Never S moker eCW1 ([facility]) Smoking 07/09/2020 12:00:00 AM EDT Never Smoker completed Never S moker eCW1 ([facility]) Smoking 07/09/2020 12:00:00 AM EDT Never Smoker completed Never S moker eCW1 ([facility]) Smoking 07/09/2020 12:00:00 AM EDT Never Smoker completed Never S moker eCW1 ([facility]) Smoking 04/02/2020 12:00:00 AM EDT Patient has never smoked co mpleted Patient has never smoked [facility] ([facility]) Smoking 03/21/2020 12:00:00 AM EDT Never Smoker completed Never S moker eCW1 ([facility]) Smoking 03/21/2020 12:00:00 AM EDT Never Smoker completed Never S moker eCW1 ([facility]) Smoking 03/21/2020 12:00:00 AM EDT Never Smoker completed Never S moker eCW1 ([facility]) Smoking 02/15/2020 12:00:00 AM EDT Never Smoker completed Never S moker eCW1 ([facility]) Smoking 02/15/2020 12:00:00 AM EDT Never Smoker completed Never S moker eCW1 ([facility]) Vital Signs ID Date Data Source UNK Name Value Range Interpretation Code Description Data Source(s) Diastolic blood pressure 68 mm[Hg] 68 mm[Hg] eCW1 ([facility]) Systolic blood pressure 110 mm[Hg] 110 mm[Hg] e CW1 ([facility]) Body temperature 96.6 [degF] 96.6 [degF] eCW1 ( [facility]) Respiratory rate 20 /min 20 /min eCW1 ([facility]) Heart rate 73 /min 73 /min eCW1 ([facility]) Body mass index (BMI) [Ratio] 64.53 kg/m2 64.53 kg/m2 W1 ([facility]) Body height 64 [in_i] 64 [in_i] eCW1 ([facility]) Body weight 376 [lb_av] 376 [lb_av] eCW1 ([facility]) Diastolic blood pressure 78 mm[Hg] 78 mm[Hg] eCW1 ([facility]) Systolic blood pressure 130 mm[Hg] 130 mm[Hg] e CW1 ([facility]) Body temperature 96.3 [degF] 96.3 [degF] eCW1 ( [facility]) Respiratory rate 20 /min 20 /min eCW1 ([facility]) Heart rate 99 /min 99 /min eCW1 ([facility]) Body mass index (BMI) [Ratio] 62.82 kg/m2 62.82 kg/m2 eCW1 ([facility]) Body height 64 [in_i] 64 [in_i] eCW1 ([facility]) Body weight 366 [lb_av] 366 [lb_av] eCW1 ([facility]) Diastolic blood pressure 76 mm[Hg] 76 mm[Hg] eCW1 ([facility]) Systolic blood pressure 130 mm[Hg] 130 mm[Hg] e CW1 ([facility]) Body temperature 96.9 [degF] 96.9 [degF] eCW1 ( [facility]) Respiratory rate 20 /min 20 /min eCW1 ([facility]) Heart rate 67 /min 67 /min eCW1 ([facility]) Body mass index (BMI) [Ratio] 61.10 kg/m2 61.10 kg/m2 eCW1 ([facility]) Body height 64 [in_i] 64 [in_i] eCW1 ([facility]) Body weight 356 [lb_av] 356 [lb_av] eCW1 ([facility]) Body weight 149.688 kg 149.688 kg [facility] ([facility]) Body mass index (BMI) [Ratio] 56.6 kg/m2 56.6 k g/m2 [facility] ([facility]) Body weight 330.00 [lb_av] 330.00 [lb_av] MEDEN T ([facility]) Body height 64 [in_i] 64 [in_i] [facility] 5'4" Oxygen saturation in Arterial blood by Pulse oximetry 89 % 89 % [facility] ([facility]) 96 2L Heart rate 60 /min 60 /min [facility] ([facility]) Diastolic blood pressure 66 mm[Hg] 66 mm[Hg] [facility]) Systolic blood pressure 108 mm[Hg] 108 mm[Hg] M EDENT ([facility]) Body mass index (BMI) [Ratio] 56.6 kg/m2 56.6 k g/m2 [facility] ([facility]) Body height 64 [in_i] 64 [in_i] [facility] ([facility]) 5'4" Body weight 330.00 [lb_av] 330.00 [lb_av] MEDEN T ([facility]) Diastolic blood pressure 68 mm[Hg] 68 mm[Hg] [facility] ([facility]) sitting, large cuff Systolic blood pressure 126 mm[Hg] 126 mm[Hg] M EDENT ([facility]) sitting, large cuff Respiratory rate 16 /min 16 /min [facility] ( [facility]) Heart rate 72 /min 72 /min [facility] ([facility]) Regular Diastolic blood pressure 76 mm[Hg] 76 mm[Hg] eCW1 ([facility]) Systolic blood pressure 128 mm[Hg] 128 mm[Hg] e CW1 ([facility]) Body temperature 97.1 [degF] 97.1 [degF] eCW1 ( [facility]) Respiratory rate 20 /min 20 /min eCW1 ([facility]) Heart rate 66 /min 66 /min eCW1 ([facility]) Body mass index (BMI) [Ratio] 60.76 kg/m2 60.76 kg/m2 eCW1 ([facility]) Body height 64 [in_i] 64 [in_i] eCW1 ([facility]) Body weight 354.0 [lb_av] 354.0 [lb_av] eCW1 ([facility]) Body weight 162.842 kg 162.842 kg MED[facility] ([facility], ) Body mass index (BMI) [Ratio] 61.6 kg/m2 61.6 k g/m2 [facility] ([facility], ) Body weight 359.00 [lb_av] 359.00 [lb_av] MEDEN T ([facility], ) Body height 64 [in_i] 64 [in_i] [facility] ([facility], ) 5'4" Diastolic blood pressure 74 mm[Hg] 74 mm[Hg] MED[facility] ([facility], ) Systolic blood pressure 132 mm[Hg] 132 mm[Hg] M EDENT ([facility], ) Diastolic blood pressure 70 mm[Hg] 70 mm[Hg] eCW1 ([facility]) Systolic blood pressure 136 mm[Hg] 136 mm[Hg] e CW1 ([facility]) Body temperature 96.8 [degF] 96.8 [degF] eCW1 ( [facility]) Respiratory rate 20 /min 20 /min eCW1 ([facility]) Heart rate 75 /min 75 /min eCW1 ([facility]) Body mass index (BMI) [Ratio] 61.10 kg/m2 61.10 kg/m2 W1 ([facility]) Body height 64 [in_i] 64 [in_i] eCW1 ([facility]) Body weight 356 [lb_av] 356 [lb_av] eCW1 ([facility]) Diastolic blood pressure 72 mm[Hg] 72 mm[Hg] eCW1 ([facility]) Systolic blood pressure 132 mm[Hg] 132 mm[Hg] e CW1 ([facility]) Body temperature 96.5 [degF] 96.5 [degF] eCW1 ( [facility]) Respiratory rate 20 /min 20 /min eCW1 ([facility]) Heart rate 70 /min 70 /min eCW1 ([facility]) Body mass index (BMI) [Ratio] 59.21 kg/m2 59.21 kg/m2 eCW1 ([facility]) Body height 64 [in_us] 64 [in_us] eCW1 ([facility]) Body weight Measured 345 [lb_av] 345 [lb_av] eC W1 ([facility]) Body weight 155.585 kg 155.585 kg MEDENT ([facility], ) Body mass index (BMI) [Ratio] 58.9 kg/m2 58.9 k g/m2 [facility], ) Body weight 343.00 [lb_av] 343.00 [lb_av] MEDEN T ([facility], ) Body height 64 [in_i] 64 [in_i] [facility] 5'4" Diastolic blood pressure 78 mm[Hg] 78 mm[Hg] [facility] ([facility]) Systolic blood pressure 126 mm[Hg] 126 mm[Hg] M EDENT ([facility], ) Body weight 148.327 kg 148.327 kg [facility] ([facility]) Body mass index (BMI) [Ratio] 56.1 kg/m2 56.1 k g/m2 [facility] ([facility]) Body weight 327.00 [lb_av] 327.00 [lb_av] MEDEN T ([facility]) Body height 64 [in_i] 64 [in_i] [facility] ([facility]) 5'4" Body temperature 96.8 [degF] 96.8 [degF] [facility] ([facility]) Diastolic blood pressure 76 mm[Hg] 76 mm[Hg] [facility] ([facility]) Systolic blood pressure 113 mm[Hg] 113 mm[Hg] M EDENT ([facility], ) Diastolic blood pressure 74 mm[Hg] 74 mm[Hg] eCW1 ([facility]) Systolic blood pressure 136 mm[Hg] 136 mm[Hg] e CW1 ([facility]) Body temperature 98.2 [degF] 98.2 [degF] eCW1 ( [facility]) Respiratory rate 22 /min 22 /min eCW1 ([facility]) Heart rate 71 /min 71 /min eCW1 ([facility]) Body mass index (BMI) [Ratio] 58.87 kg/m2 58.87 kg/m2 eCW1 ([facility]) Body height 64 [in_us] 64 [in_us] eCW1 ([facility]) Body weight Measured 343 [lb_av] 343 [lb_av] eC W1 ([facility]) Diastolic blood pressure 72 mm[Hg] 72 mm[Hg] eCW1 ([facility]) Systolic blood pressure 124 mm[Hg] 124 mm[Hg] e CW1 ([facility]) Body temperature 98.0 [degF] 98.0 [degF] eCW1 ( [facility]) Respiratory rate 22 /min 22 /min eCW1 ([facility]) Heart rate 94 /min 94 /min eCW1 ([facility]) Body mass index (BMI) [Ratio] 57.50 kg/m2 57.50 kg/m2 eCW1 ([facility]) Body height 64 [in_us] 64 [in_us] eCW1 ([facility]) Body weight Measured 335.0 [lb_av] 335.0 [lb_av ] eCW1 ([facility]) Body weight 146.059 kg 146.059 kg OMID ([facility], ) Body mass index (BMI) [Ratio] 55.3 kg/m2 55.3 k g/m2 MEDENT ([facility], ) Body weight 322.00 [lb_av] 322.00 [lb_av] MEDEN T ([facility], ) Body height 64 [in_i] 64 [in_i] MEDENT ([facility], ) 5'4" Diastolic blood pressure 66 mm[Hg] 66 mm[Hg] MEDENT ([facility], ) Systolic blood pressure 112 mm[Hg] 112 mm[Hg] M EDENT ([facility], ) Body mass index (BMI) [Ratio] 54.1 kg/m2 54.1 k g/m2 MEDENT ([facility] ) Body weight 315.00 [lb_av] 315.00 [lb_av] MEDEN T ([facility]) Body height 64 [in_i] 64 [in_i] MEDENT ([facility]) 5'4" Patient Treatment Plan of Care Planned Activity Planned Date Details Description Data Source (s) Cephalexin 500 MG Oral Capsule [Keflex] 09/10/2020 12:00:00 AM EST eCW1 ([facility]) Cephalexin 500 MG Oral Capsule [Keflex] 09/10/2020 12:00:00 AM EST eCW1 ([facility]) apixaban 2.5 MG Oral Tablet [Eliquis] 08/12/2020 12:00:00 AM EST eCW1 ([facility]) apixaban 2.5 MG Oral Tablet [Eliquis] 08/12/2020 12:00:00 AM EST eCW1 ([facility]) apixaban 2.5 MG Oral Tablet [Eliquis] 08/12/2020 12:00:00 AM EST eCW1 ([facility]) apixaban 2.5 MG Oral Tablet [Eliquis] 08/12/2020 12:00:00 AM EST eCW1 ([facility]) apixaban 2.5 MG Oral Tablet [Eliquis] 08/12/2020 12:00:00 AM EST eCW1 ([facility]) apixaban 2.5 MG Oral Tablet [Eliquis] 08/12/2020 12:00:00 AM EST eCW1 ([facility]) Levofloxacin 750 MG Oral Tablet 07/09/2020 12:00:00 AM EDT eCW1 ([facility]) Levofloxacin 750 MG Oral Tablet 07/09/2020 12:00:00 AM EDT eCW1 ([facility]) gabapentin 800 MG Oral Tablet 02/19/2020 12:00:00 AM EDT eCW1 ([facility]) Bisoprolol Fumarate 5 MG Oral Tablet 02/19/2020 12:00:00 AM EDT eCW1 ([facility]) Fluticasone Propionate 50 MCG/ACT 12/07/2019 12:00:00 AM EDT eCW1 ([facility]) Fluticasone Propionate 50 MCG/ACT 12/07/2019 12:00:00 AM EDT eCW1 ([facility]) cefpodoxime 200 MG Oral Tablet 08/24/2019 12:00:00 AM EST eCW1 ([facility]) Albuterol-Ipratropium 2.5-0.5 MG/3ML 08/23/2019 12:00:00 AM EST eCW1 ([facility]) Nebulizer/Tubing/Mouthpiece - 08/23/2019 12:00:00 AM EST eCW1 ([facility]) Nebulizer/Tubing/Mouthpiece - 08/23/2019 12:00:00 AM EST eCW1 ([facility]) Albuterol-Ipratropium 2.5-0.5 MG/3ML 08/23/2019 12:00:00 AM EST eCW1 ([facility]) Nebulizer/Tubing/Mouthpiece - 08/23/2019 12:00:00 AM EST eCW1 ([facility]) Prednisone 20 MG Oral Tablet 08/23/2019 12:00:00 AM EST eCW1 ([facility]) doxycycline hyclate 100 MG Oral Capsule 08/23/2019 12:00:00 AM EST eCW1 ([facility]) Albuterol-Ipratropium 2.5-0.5 MG/3ML 08/23/2019 12:00:00 AM EST eCW1 ([facility]) Spironolactone 25 MG Oral Tablet eCW1 ([facility])
[2020-10-02] MEDS ORDERED: traMADol 50 MG TAB PO PRN (00:45)
[2020-10-02] MEDS: VENLAFAXINE **XR** 75MG CAPSULE PO SCH ×3 (00:49→20:17)
[2020-10-02] MEDS: POTASSIUM CHLORIDE 10 MEQ SR TABLET PO SCH ×2 (00:50→20:18)
[2020-10-02] MEDS: APIXABAN 2.5 MG TAB (ELIQUIS) PO SCH ×3 (00:50→20:18)
[2020-10-02] MEDS: CYCLOBENZAPRINE 10MG TABLET PO SCH ×4 (00:51→20:17)
[2020-10-02] MEDS: GABAPENTIN 400MG CAP PO SCH ×4 (00:52→20:19)
[2020-10-02] MEDS: OYSTER SHELL CALCIUM 500 MG TAB PO SCH ×2 (00:53→20:20)
[2020-10-02] MEDS: PANTOPRAZOLE 40MG TAB (PROTONIX) PO SCH ×3 (00:53→20:18)
[2020-10-02] MEDS: bisoproloL fumarate 5 MG TAB PO SCH ×3 (00:54→20:19)
[2020-10-02 01:35] VITALS: BP 128/61
[2020-10-02] MEDS: LEVOTHYROXINE 88MCG TABLET (0.088 MG) PO SCH (05:22)
[2020-10-02 06:00] VITALS: BP 133/65
[2020-10-02 07:26] LABS: HEMATOCRIT 30.4 % (36.0-47.0); HEMOGLOBIN 9.3 g/dl (12.0-15.5); MEAN CORPUSCULAR HEMOGLOBIN 31.4 pg (27.0-33.0); MEAN CORPUSCULAR HGB CONC 30.6 g/dl (32.0-36.5); MEAN CORPUSCULAR VOLUME 102.7 fl (80.0-96.0); RED BLOOD COUNT 2.96 10^6/uL (4.00-5.40); WHITE BLOOD COUNT 1.9 10^3/uL (4.0-10.0)
[2020-10-02 07:27] LABS: PLATELET COUNT, AUTOMATED 41 10^3/uL (150-450)
--- NOTE | 2020-10-02 07:35 | IPNPDOC ---
Date Seen The patient was seen on 10/02/20. Progress Note SUBJECTIVE: c/o fever 101 at home prior to admission with chills after hospital discharge increasing pain and erythema on the left arm. OBJECTIVE PHYSICAL EXAMINATION: VITAL SIGNS: Please see below. GENERAL:obese No respiratory distress. SKIN:petechiae on b/l thighs. ecchymosis on right anterior thigh HEENT: No JVD, thyromegaly, cervical lymphadenopathy, no carotid bruits no axillary lymphadenopathy CARDIOVASCULAR: S1, S2, regular rate and rhythm RESPIRATORY: Clear to auscultation. Wheezing, rales or rhonchi ABDOMINAL: Obese, soft, nontender, nondistended EXTREMITIES: chronic lymphedema SKIN: erythematous nonraised patches along the the left upper extremity including the forearm, axilla, and along the lateral chest wall as well as the tip of the breast Without blisters, bullae, or vesicles. no crepitus LABORATORY DATA, IMAGING STUDIES, MICROBIOLOGY: Please see below. ASSESSMENT AND PLAN: 65 y/o F with PMH significant for Alpha-1 antitrypsin deficiency,NASHchronic Pancytopenia,Neuropathy,History of recurrent GI bleed attributed to rectal fissures, prepyloric erosion, hiatial hernia, antral gastritis, antral ulcers, distal esophagitis, AVMs, and gastric antral vascular ectasia (GAVE),GERD,Irritable bowel syndrome,Optic migrainesDyslipidemia ,Chronic Depression,History of vitamin B12 deficiency,History of seizures started in 1975, resolved in 1982 ,History of DVT 2, status post IVC filter placement in 1999 ,Remote history of CVA with transient left-sided weakness, Morbid obesity admitted 09/19-09/29/20 for cellulitis treated with iv vanco and discharged on doxycycline returns to the ER with similar c/o w pain, fever, erythema. 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 Depression -chronic VS, I&O, [facility] Vital Signs/I&O Vital Signs Date Time Temp Pulse Resp B/P (MAP) Pulse Ox O2 Delivery O2 Flow Rate FiO2 10/02/20 06:00 97.0 74 17 133/65 (87) 93 Room Air I&O- Last 24 Hours up to 6 AM 10/02/20 06:00 Intake Total 370 ml Balance 370 ml Laboratory Data 24H LABS Laboratory Tests 2 10/01/20 20:53: Immature Granulocyte % (Auto) 0.5, Neutrophils (%) (Auto) 64.5, Lymphocytes (%) (Auto) 21.9L, Monocytes (%) (Auto) 6.3H, Eosinophils (%) (Auto) 6.3H, Basophils (%) (Auto) 0.5, Neutrophils # (Auto) 1.2L, Lymphocytes # (Auto) 0.4L, Monocytes # (Auto) 0.1, Eosinophils # (Auto) 0.1, Basophils # (Auto) 0.0, Nucleated Red Blood Cells % (auto) 0.0, Immature Platelet Fraction 2.8, Erythrocyte Sedimentation Rate 17, Anion Gap 4L, Glomerular Filtration Rate > 60.0, Calcium Level 8.9, C-Reactive Protein, Quantitative 0.70H 10/01/20 22:21: Coronavirus (COVID-19)(PCR) NEGATIVE, Influenza Type A (RT-PCR) NEGATIVE, Influenza Type B (RT-PCR) NEGATIVE, Respiratory Syncytial Virus (PCR) NEGATIVE CBC/BMP Laboratory Tests 10/01/20 20:53 DURAN SCHWAB MD Oct 02, 2020 07:29
[2020-10-02 07:50] LABS: BLOOD UREA NITROGEN 15 MG/DL (7-18); CALCIUM LEVEL 8.7 MG/DL (8.8-10.2); CARBON DIOXIDE LEVEL 26 MEQ/L (21-32); CHLORIDE LEVEL 110 MEQ/L (98-107); CREATININE FOR GFR 0.76 MG/DL (0.55-1.30); GLOMERULAR FILTRATION RATE > 60.0 (>45); GLUCOSE, FASTING 90 MG/DL (70-100); POTASSIUM SERUM 3.8 MEQ/L (3.5-5.1); SODIUM LEVEL 145 MEQ/L (136-145)
[2020-10-02 07:57] LABS: BASO % 1.1 % (0.0-1.0); EOS # 0.1 10^3/uL (0.0-0.5); EOS % 6.9 % (0.0-3.0); HEMATOCRIT 30.3 % (36.0-47.0); HEMOGLOBIN 9.2 g/dl (12.0-15.5); LYMPH # 0.5 10^3/uL (1.5-5.0); LYMPH % 28.7 % (24.0-44.0); MEAN CORPUSCULAR HEMOGLOBIN 31.2 pg (27.0-33.0); MEAN CORPUSCULAR HGB CONC 30.4 g/dl (32.0-36.5); MEAN CORPUSCULAR VOLUME 102.7 fl (80.0-96.0); MONO # 0.1 10^3/uL (0.0-0.8); MONO % 7.4 % (0.0-5.0); NEUTROPHILS % 55.4 % (36.0-66.0); RED BLOOD COUNT 2.95 10^6/uL (4.00-5.40); WHITE BLOOD COUNT 1.9 10^3/uL (4.0-10.0)
[2020-10-02 07:58] LABS: PLATELET COUNT, AUTOMATED 45 10^3/uL (150-450)
[2020-10-02 08:15] LABS: ERYTHROCYTE SEDIMENTATION RATE 17 mm/hr (0-30)
[2020-10-02] MEDS: CYANOCOBALAMIN 500 MCG TAB PO SCH (08:58)
[2020-10-02] MEDS: TORSEMIDE 20 MG TAB PO SCH ×2 (08:59→15:20)
[2020-10-02] MEDS ORDERED: PREVNAR 13 VACCINE SYRINGE IM ONE (09:00)
[2020-10-02 09:48] LABS: ALBUMIN 3.2 GM/DL (3.2-5.2); ALT/SGPT 39 U/L (12-78); BILIRUBIN,TOTAL 1.1 MG/DL (0.2-1.0); BLOOD UREA NITROGEN 16 MG/DL (7-18); C REACTIVE PROTEIN QUANTITATIV 0.82 MG/DL (0.00-0.30); CALCIUM LEVEL 9.3 MG/DL (8.8-10.2); CARBON DIOXIDE LEVEL 25 MEQ/L (21-32); CHLORIDE LEVEL 109 MEQ/L (98-107); FERRITIN 252 NG/ML (8-252); GLOMERULAR FILTRATION RATE > 60.0 (>45); GLUCOSE, FASTING 86 MG/DL (70-100); IRON (FE) 153 UG/DL (50-170); PERCENT SATURATION 61.9 % (13.2-45.0); POTASSIUM SERUM 3.9 MEQ/L (3.5-5.1); SODIUM LEVEL 143 MEQ/L (136-145); TOTAL IRON BINDING CAPACITY 247 UG/DL (250-450); TOTAL PROTEIN 5.7 GM/DL (6.4-8.2)
[2020-10-02 11:12] LABS: HEMOGLOBIN A1c 4.8 %
[2020-10-02 11:17] LABS: VITAMIN B12 LEVEL > 2000 PG/ML (247-911)
[2020-10-02 11:18] LABS: FOLATE 6.9 NG/ML (>5.4)
--- NOTE | 2020-10-02 13:12 | CR.PDOC ---
General Date of Consultation: Oct 02, 2020 Consultation REASON FOR CONSULTATION/CHIEF COMPLAINT: telehealth consult for rash/recurrent breast cellulitis. HISTORY OF PRESENT ILLNESS: 65yo F with multiple comorbidities referred for a painful rash on her left breast, left upper arm, abdomen, and left thigh. Patient was recently admitted from 09/19/20 to 09/29/20 for cellulitis and completed IV vancomycin and discharged home on doxycycline. She returned to the ER 10/01/20 with pain, fever, and continued erythema to the affected areas. ALLERGIES: Please see below. HOME MEDICATIONS: Please see below. PAST MEDICAL HISTORY: 1. Please see H&P. PAST SURGICAL HISTORY: 1. Please see H&P LABORATORY DATA: Please see below. PE: [x ] Asynchronous televisit was conducted between the primary team and clinician. Clinical images were reviewed demonstrating erythema on the left breast and left upper arm with subtle peau d'orange texture. Abdomen and left thigh noted to be mildly erythematous. - Total Time of Virtual Visit:13 ASSESSMENT/PLAN: 1. Erythema - given the recurrence rate of fever, chills, and recurrence rate of cellulitis (particularly breast cellulitis in a patient with multiple comorbidities), rec urrent cellulitis would remain at the top of my differential. Inflammatory breast cancer/Paget's disease would be less likely given multifocal nature of the clinical appearance, however, we're happy to schedule the patient for a punch biopsy in the outpatient setting upon discharge. Does not appear consistent with superficial thrombophlebitis. Not consistent with morphea. - If this patient has previously responded to a course of antibiotics, I would recommend repeating that same course and considering an alternative po medication for discharge with good gram + coverage. We routinely utilize c lindamycin, bactrim ds, and linezolid in these patient populations. Would defer to ID on their preferences. Patient has an appt in the [facility] derm clinic 10/09/2020 @ 1300 with myself. Jaime Sandoval MD Staff [employer]working [employer] Off[employer]arer Vital Signs/I&O Vital Signs Date Time Temp Pulse Resp B/P (MAP) Pulse Ox O2 Delivery O2 Flow Rate FiO2 10/02/20 09:01 62 132/89 10/02/20 06:00 97.0 17 93 Room Air I&O- Last 24 Hours up to 6 AM 10/02/20 06:00 Intake Total 370 ml Balance 370 ml Laboratory Data Labs 24H Laboratory Tests 2 10/01/20 20:53: Immature Granulocyte % (Auto) 0.5, Neutrophils (%) (Auto) 64.5, Lymphocytes (%) (Auto) 21.9L, Monocytes (%) (Auto) 6.3H, Eosinophils (%) (Auto) 6.3H, Basophils (%) (Auto) 0.5, Neutrophils # (Auto) 1.2L, Lymphocytes # (Auto) 0.4L, Monocytes # (Auto) 0.1, Eosinophils # (Auto) 0.1, Basophils # (Auto) 0.0, Nucleated Red Blood Cells % (auto) 0.0, Immature Platelet Fraction 2.8, Erythrocyte Sedimentation Rate 17, Anion Gap 4L, Glomerular Filtration Rate > 60.0, Calcium Level 8.9, C-Reactive Protein, Quantitative 0.70H 10/01/20 22:21: Coronavirus (COVID-19)(PCR) NEGATIVE, Influenza Type A (RT-PCR) NEGATIVE, Influenza Type B (RT-PCR) NEGATIVE, Respiratory Syncytial Virus (PCR) NEGATIVE 10/02/20 07:14: Immature Granulocyte % (Auto) 0.5, Neutrophils (%) (Auto) 55.4, Lymphocytes (%) (Auto) 28.7, Monocytes (%) (Auto) 7.4H, Eosinophils (%) (Auto) 6.9H, Basophils (%) (Auto) 1.1H, Neutrophils # (Auto) 1.0L, Lymphocytes # (Auto) 0.5L, Monocytes # (Auto) 0.1, Eosinophils # (Auto) 0.1, Basophils # (Auto) 0.0, Nucleated Red Blood Cells % (auto) 0.0, Erythrocyte Sedimentation Rate 17, Anion Gap 9, Glomerular Filtration Rate > 60.0, Calcium Level 8.7L, Estimated Mean Plasma Glucose 91, Hemoglobin A1c 4.8 10/02/20 08:52: Anion Gap 9, Glomerular Filtration Rate > 60.0, Calcium Level 9.3, C-Reactive Protein, Quantitative 0.82H, Iron Level 153, Total Iron Binding Capacity 247L, Transferrin % Saturation 61.9H, Ferritin 252, Total Bilirubin 1.1H, Aspartate Amino Transf (AST/SGOT) 64H, Alanine Aminotransferase (ALT/SGPT) 39, Alkaline Phosphatase 136H, Total Protein 5.7L, Albumin 3.2, Albumin/Globulin Ratio 1.3, Vitamin B12 Level > 2000H, Folate 6.9 10/02/20 08:53: Procalcitonin 0.07 CBC/BMP Laboratory Tests 10/01/20 20:53 10/02/20 07:14 10/02/20 08:52 Allergies Coded Allergies: naloxone (Verified Allergy, Unknown, sz, 10/01/20) codeine (Verified Adverse Reaction, Intermediate, CHESP PAIN, 10/01/20) ibuprofen (Verified Adverse Reaction, Intermediate, JOINT/ MUSCLE PAIN, 10/01/20) pregabalin (Verified Adverse Reaction, Intermediate, chest pain, 10/01/20) amoxicillin (Verified Adverse Reaction, Mild, vomiting and diarrhea, 10/01/20) clavulanic acid (Verified Adverse Reaction, Mild, vomiting and diarrhea, 10/01/20) erythromycin base (Verified Adverse Reaction, Mild, vomting diarrhea, 10/01/20) hydromorphone (Verified Adverse Reaction, Mild, ITCHING, 10/01/20) CAN TAKE IF BENADRYL GIVEN PRIOR Home Medications Scheduled Apixaban (Eliquis) 2.5 Mg Tablet, 2.5 MG PO BID, (Reported) Bisoprolol Fumarate (Bisoprolol Fumarate) 5 Mg Tablet, 5 MG PO BID, (Reported) Calcium Carbonate (Calcium) 500 Mg Tablet, 1,000 MG PO QHS, (Reported) Cyanocobalamin (Vitamin B-12) (Vitamin B-12) 1,000 Mcg Tablet, 1,000 MCG PO DAILY, (Reported) Cyclobenzaprine HCl (Cyclobenzaprine HCl) 10 Mg Tablet, 10 MG PO TID, (Reported) Gabapentin (Gabapentin) 800 Mg Tablet, 800 MG PO BID, (Reported) Gabapentin (Gabapentin) 400 Mg Capsule, 400 MG PO DAILY, (Reported) TAKES AT 1500 Levothyroxine Sodium (Levothyroxine Sodium) 88 Mcg Tablet, 88 MCG PO DAILY, (Reported) Pantoprazole Sodium (Pantoprazole Sodium) 40 Mg Tablet.dr, 40 MG PO BID, (Reported) Potassium Chloride (Potassium Chloride) 20 Meq Tab.er.prt, 20 MEQ PO QHS, (Reported) Torsemide (Torsemide) 20 Mg Tablet, 20 MG PO BID, (Reported) 0900, 1500 Trazodone HCl (Trazodone HCl) 150 Mg Tablet, 150 MG PO QHS, (Reported) Venlafaxine HCl (Venlafaxine HCl ER) 75 Mg Cap.er.24h, 75 MG PO DAILY, (Reported) Venlafaxine HCl (Venlafaxine HCl ER) 75 Mg Cap.er.24h, 150 MG PO QHS, (Reported) Vitamin B Complex (Vitamin B Complex) 1 Each Tablet, 1 TAB PO DAILY, (Reported) JAIME SANDOVAL MD Oct 02, 2020 12:53
[2020-10-02] MEDS ORDERED: ISOVUE-370 76% 100ML VIAL As Ordered ONE (17:51)
--- NOTE | 2020-10-02 19:03 | REP ---
INDICATION: abd pain. COMPARISON: Comparison CT study September 01, 2020.. TECHNIQUE: Helical scanning is acquired and 3 mm axial images re-formatted. Coronal and sagittal MPR images are generated. The CT contrast enhancement dose is 100 mL of intravenous Isovue 370. FINDINGS: Digital preliminary photoradio operator radiograph demonstrates a vena cava filter and an unremarkable bowel gas pattern. Multiple skin folds overlie the abdomen. The lung bases show an area of atelectasis with air bronchograms in the right middle lobe. This is chronic and unchanged from the February 15, 2020 study. No pleural effusion is seen. Moderate splenomegaly is again observed. Post cholecystectomy clips are seen. Vascular calcification is noted. No adrenal mass lesion is seen. IVC filter is noted in place. No renal lesion is seen. Renal enhancement pattern is symmetric. No retroperitoneal mass or adenopathy is seen. Ventral hernia repair clips are seen. No abdominal wall defect is seen. Subcutaneous edema is again noted in the left flank extra abdominal soft tissues improved from the prior study. No pelvic mass or adenopathy is seen. Patient is to appears to be status post prior left colonic resection. No evidence of free air or abscess. The uterus is surgically absent. IMPRESSION: Postoperative changes including prior cholecystectomy, left colonic resection, hysterectomy, and ventral hernia repair. An IVC filter is seen. Moderate splenomegaly is again observed with venous collaterals visible in the upper abdomen question portal hypertension. The umbilical vein is recannulated. No acute abdominal or pelvic abnormality is seen. <Electronically signed by Selvin Mo > 10/02/20 1377
[2020-10-02 20:15] VITALS: BP 113/52
[2020-10-02] MEDS: traZODone 50 MG TAB PO SCH (20:17)
[2020-10-02 20:36] LABS: NT-PRO BNP 275 PG/ML (<125)
[2020-10-03 04:49] VITALS: BP 109/45
[2020-10-03] MEDS: LEVOTHYROXINE 88MCG TABLET (0.088 MG) PO SCH (05:10)
[2020-10-03] MEDS ORDERED: TRIA1OI TOP (07:48)
[2020-10-03] MEDS ORDERED: PRED10TA2 PO (07:48)
--- NOTE | 2020-10-03 07:58 | DS.PDOC ---
Discharge Summary General Date of Admission Oct 01, 2020 at 23:33 Date of Discharge 10/03/20 Discharge Summary DISCHARGE DIAGNOSES: Nonspecific Urticaria on Left breast, arm, left lower abdomen Chronic Pancytopenia Splenomegaly LISA Alpha-1 antitrypsin deficiency chronic Pancytopenia Neuropathy History of recurrent GI bleed attributed to rectal fissures prepyloric erosion hiatial hernia antral gastritis antral ulcers distal esophagitis AVMs gastric antral vascular ectasia (GAVE) GERD Irritable bowel syndrome Optic migraines Dyslipidemia Chronic Depression History of vitamin B12 deficiency, History of seizures started in 1975, resolved in 1982 History of DVT 2, status post IVC filter placement in 1999 Remote history of CVA with transient left-sided weakness Morbid obesity BMI 60.2 DISCHARGE MEDICATIONS:SEE BELOW ALLERGIES: SEE BELOW DISCHARGE INSTRUCTIONS: [employer] DR. SHAH 10/09/20 FOR BIOPSY, PCP 1WK, DR LU 5DAYS, DR MULLINS 1 [facility] H[facility]PITAL COURSE: 65 y/o F with PMH significant for Alpha-1 antitrypsin deficiency,NASHchronic Pancytopenia,Neuropathy,History of recurrent GI bleed attributed to rectal fissures, prepyloric erosion, hiatial hernia, antral gastritis, antral ulcers, distal esophagitis, AVMs, and gastric antral vascular ectasia (GAVE),GERD,Irritable bowel syndrome,Optic migrainesDyslipidemia ,Chronic Depression,History of vitamin B12 deficiency,History of seizures started in 1975, resolved in 1982 ,History of DVT 2, status post IVC filter placement in 1999 ,Remote history of CVA with transient left-sided weakness, Morbid obesity admitted 09/19-09/29/20 for cellulitis treated with iv vanco and discharged on doxycycline returns to the ER with similar c/o w pain, fever, erythema. Left arm, breast, abd erythematous lesions -no empiric abx since negative procalcitonin -ELVA pending -Dermatology consulted-for punch biopsy on 10/09/20 -ID consulted-recommended meter mechanic to be consulted -Data Scientist consulted -Dr. 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 GENERAL:obese No respiratory distress. SKIN:petechiae on b/l thighs. ecchymosis on right anterior thigh HEENT: No JVD, thyromegaly, cervical lymphadenopathy, no carotid bruits no axillary lymphadenopathy CARDIOVASCULAR: S1, S2, regular rate and rhythm RESPIRATORY: Clear to auscultation. Wheezing, rales or rhonchi ABDOMINAL: Obese, soft, nontender, nondistended EXTREMITIES: chronic lymphedema SKIN: erythematous urticarial patches along the the left upper extremity with warmth including the forearm, axilla, and along the lateral chest wall as well as the tip of the breast Without blisters, bullae, or vesicles. no crepitus DISCHARGE LABORATORY DATA, IMAGING STUDIES, MICROBIOLOGY: Please see below. 10/02/20 CT ABD/PELVIS IMPRESSION: Postoperative changes including prior cholecystectomy, left colonic resection, hysterectomy, and ventral hernia repair. An IVC filter is seen. Moderate splenomegaly is again observed with venous collaterals visible in the upper abdomen question portal hypertension. The umbilical vein is recannulated. No acute abd ominal or pelvic abnormality is seen. <Electronically signed by Selvin Mo > 10/02/20 0613 TIME SPENT ON DISCHARGE: 30 MINUTES Vital Signs/I&Os Vital Signs Date Time Temp Pulse Resp B/P (MAP) Pulse Ox O2 Delivery O2 Flow Rate FiO2 10/03/20 04:49 96.2 71 20 109/45 (66) 92 Nasal Cannula I&O- Last 24 Hours up to 6 AM 10/03/20 06:00 Intake Total 1300 ml Output Total 0 ml Balance 1300 ml Laboratory Data Labs 24H Laboratory Tests 2 10/02/20 08:52: Anion Gap 9, Glomerular Filtration Rate > 60.0, Calcium Level 9.3, Iron Level 153, Total Iron Binding Capacity 247L, Transferrin % Saturation 61.9H, Ferritin 252, Total Bilirubin 1.1H, Aspartate Amino Transf (AST/SGOT) 64H, Alanine Aminotransferase (ALT/SGPT) 39, Alkaline Phosphatase 136H, C-Reactive Protein, Quantitative 0.82H, PT-Xig-R-Type Natriuretic Peptide 275H, Total Protein 5.7L, Albumin 3.2, Albumin/Globulin Ratio 1.3, Vitamin B12 Level > 2000H, Folate 6.9 10/02/20 08:53: Procalcitonin 0.07 10/02/20 20:27: Methicillin-Resist S.aureus DNA PCR DETECTEDA CBC/BMP Laboratory Tests 10/02/20 08:52 Discharge Medications Scheduled Apixaban (Eliquis) 2.5 Mg Tablet, 2.5 MG PO BID, (Reported) Bisoprolol Fumarate (Bisoprolol Fumarate) 5 Mg Tablet, 5 MG PO BID, (Reported) Calcium Carbonate (Calcium) 500 Mg Tablet, 1,000 MG PO QHS, (Reported) Cyanocobalamin (Vitamin B-12) (Vitamin B-12) 1,000 Mcg Tablet, 1,000 MCG PO DAILY, (Reported) Cyclobenzaprine HCl (Cyclobenzaprine HCl) 10 Mg Tablet, 10 MG PO TID, (Reported) Gabapentin (Gabapentin) 800 Mg Tablet, 800 MG PO BID, (Reported) Gabapentin (Gabapentin) 400 Mg Capsule, 400 MG PO DAILY, (Reported) TAKES AT 1500 Levothyroxine Sodium (Levothyroxine Sodium) 88 Mcg Tablet, 88 MCG PO DAILY, (Reported) Pantoprazole Sodium (Pantoprazole Sodium) 40 Mg Tablet.dr, 40 MG PO BID, (Rep orted) Potassium Chloride (Potassium Chloride) 20 Meq Tab.er.prt, 20 MEQ PO QHS, (Reported) Prednisone (Prednisone) 10 Mg Tablet, 10 MG PO TAPER Take 4 tabs daily x 3 days, then 3 tabs daily x 3 days, then 2 tabs daily x 3 days, then 1 tab daily x 3 days and stop Torsemide (Torsemide) 20 Mg Tablet, 20 MG PO BID, (Reported) 0900, 1500 Trazodone HCl (Trazodone HCl) 150 Mg Tablet, 150 MG PO QHS, (Reported) Triamcinolone Acet (Triamcinolone Acetonide 0.1% Oint) 15 Gm Oint...g., 1 APLCT TOP BID apply to affected area(s) Venlafaxine HCl (Venlafaxine HCl ER) 75 Mg Cap.er.24h, 75 MG PO DAILY, (Rep orted) Venlafaxine HCl (Venlafaxine HCl ER) 75 Mg Cap.er.24h, 150 MG PO QHS, (Reported) Vitamin B Complex (Vitamin B Complex) 1 Each Tablet, 1 TAB PO DAILY, (Reported) Allergies Coded Allergies: naloxone (Verified Allergy, Unknown, sz, 10/01/20) codeine (Verified Adverse Reaction, Intermediate, CHESP PAIN, 10/01/20) ibuprofen (Verified Adverse Reaction, Intermediate, JOINT/ MUSCLE PAIN, 10/01/20) pregabalin (Verified Adverse Reaction, Intermediate, chest pain, 10/01/20) amoxicillin (Verified Adverse Reaction, Mild, vomiting and diarrhea, 10/01/20) clavulanic acid (Verified Adverse Reaction, Mild, vomiting and diarrhea, 10/01/20) erythromycin base (Verified Adverse Reaction, Mild, vomting diarrhea, 10/01/20) hydromorphone (Verified Adverse Reaction, Mild, ITCHING, 10/01/20) CAN TAKE IF BENADRYL GIVEN PRIOR DURAN SCHWAB MD Oct 03, 2020 07:57
[2020-10-03] MEDS ORDERED: FAMOTIDINE 20 MG TAB PO ONE (08:00)
[2020-10-03] MEDS ORDERED: predniSONE 20 MG TAB PO ONE (08:00)
[2020-10-03] MEDS ORDERED: hydrOXYzine 25 MG TAB PO ONE (08:00)
[2020-10-03] MEDS: PANTOPRAZOLE 40MG TAB (PROTONIX) PO SCH (08:11)
[2020-10-03] MEDS: CYANOCOBALAMIN 500 MCG TAB PO SCH (08:11)
[2020-10-03] MEDS: VENLAFAXINE **XR** 75MG CAPSULE PO SCH (08:11)
[2020-10-03] MEDS: CYCLOBENZAPRINE 10MG TABLET PO SCH ×2 (08:11→16:09)
[2020-10-03] MEDS: APIXABAN 2.5 MG TAB (ELIQUIS) PO SCH (08:13)
[2020-10-03] MEDS: GABAPENTIN 400MG CAP PO SCH ×2 (08:13→16:09)
[2020-10-03] MEDS: TORSEMIDE 20 MG TAB PO SCH ×2 (08:13→15:00)
[2020-10-03 08:14] VITALS: BP 119/56
[2020-10-03] MEDS: bisoproloL fumarate 5 MG TAB PO SCH (08:14)
[2020-10-03] MEDS ORDERED: TRIAMCINOLONE ACET 0.1% OINTMENT 80 GM TOP SCH (09:00)
--- NOTE | 2020-10-03 10:35 | CR ---
INFECTIOUS DISEASE CONSULTATION DATE: 10/02/2020 CONSULTATION REQUESTED BY: Hospitalist. REASON FOR CONSULTATION: For evaluation of recurrent left arm swelling, breast swelling, thigh swelling and flank swelling. 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 Patient presented on 09/19/2020 with complaint of two week history of left arm pain, breast pain, lower abdominal and thigh erythema; all on the left side. Erythema is not contiguous. She stated she had some fevers at home, but no documentation of fever in the hospital. The patient was hospitalized from September 19 to September 26 after she had failed a course of Keflex. In the hospital, she remained febrile and was eventually discharged home on Doxycycline for five days. She states the erythema did improve at some point, but as soon as she discontinued Doxycycline, it came back. She denied any abrasions, cuts, falls. The patient has a history of lower extremity venous stasis changes with ulcers on both feet, for which she had been hospitalized in the past many years ago, that have completely healed. History of GI bleeds from gastric antral vascular ectasia requiring transfusions and Ferric carboxymaltose infusion every couple weeks. She had her last infusion through Dr. Aguirre. 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 PAST SURGICAL HISTORY: IVC filter in 1999, tonsillectomy, adenoidectomy, appendectomy, , tubal ligation, hysterectomy with ovarian cystectomy, cholecystectomy, hemorrhoidectomy, incarcerated hernia repair, colostomy with reversal two years later, rectal fissure surgery with skin graft, hernia repair. SOCIAL HISTORY: She denies smoking or illicit drug use. 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 Her sister is a nurse and helps with her care as well. PHYSICAL EXAMINATION: VITAL SIGNS: Temperature 97, pulse 74, respirations 17, blood pressure 133/55, O2 sat 93% on room air. HEART: Normal S1, S2, distant. No murmurs heard. LUNGS: Clear. No wheezes, rales or rhonchi. ABDOMEN: Morbidly obese, soft, nontender with multiple scars. BACK: No CVA or lumbosacral tenderness. EXTREMITIES: Trace edema at the ankles. No clubbing or cyanosis. SKIN: She has erythema of the upper deltoid; slightly tender to touch and swollen. A patch of erythema on the left breast, which is not contiguous with the left deltoid. Slight erythema and redness of the abdomen and thigh. Slightly warm to touch all those areas and mildly erythematous. Left flank is tender to touch. There is no erythema on the right side. LABORATORY DATA: White count 11.9, hemoglobin 9.2, hematocrit 30.3, platelets 45,000, 55% neutrophils, 28% lymphocytes, 7% monocytes. ESR 17; last admission it was 9. Sodium 143, potassium 3.9, chloride 109, bicarb 25, BUN 16, creatinine 0.8, glucose 86. Iron saturation 62%, iron 153, TIBC 247, ferritin 252. AST 64, ALT 39, alkaline phosphatase 136. CRP 0.7. Total protein 5.7. Albumin 3.2. Folate 6.9. Procalcitonin 0.07. Blood culture September 19 was negative. SARS-COV2 and respiratory panel was negative. ELVA was pending. Vancomycin trough 11.6 on September 26. I have reviewed a note from Dr. Sandoval, who will be seeing the patient on discharge for possible biopsy. IMPRESSION: This is a 65-year-old female who was admitted with recurrent episodes of swelling of different areas including the left deltoid, the left breast, the left flank and the left thigh that are not contiguous, without a fever at least documented in the hospital even though the patient stated she had a fever at home of 99, which is high for her. She does not have elevated inflammatory markers to suggest infectious process. Mildly elevated CRP. Sed rate is normal. Procalcitonin is normal. She was recently started on Eliquis, that is the only new medication. I wonder if these are attacks of angioedema. Patient clinically does not look ill or septic. I am not convinced this is cellulitis. These are not contiguous at too many different areas. She received a dose of Injectafer on 09/15/2020, but she receives that on a regular basis and has been on that treatment since September 2019, but will review side effects of that medication. PLAN: Will discuss the case with Dr. Sandoval in the morning and Dr. Riri Aguirre. I have discussed the case with Dr. Moses and I do not suspect this is infectious in nature. I would suggest obtaining follow-up CT abdomen and pelvis that was done for flank pain and showed a concern of hematoma.
--- NOTE | 2020-10-03 12:54 | CR.PDOC ---
General Date of Consultation: Oct 03, 2020 Referring Provider: DURAN SCHWAB MD Primary Care Physician: QUINCY DONG MD Attending Physician: DURAN SCHWAB MD Consultation REASON FOR CONSULTATION/CHIEF COMPLAINT: Recurrent left arm erythema with breast swelling and erythema ? Inflammation vs malignant etiology. HISTORY OF PRESENT ILLNESS: Ms Tina Saucedo is a 65-year-old woman with anemia of multifactorial etiology, pancytopenia secondary to hypersplenism and history of thrombosis, currently admitted for left arm cellulitis and left breast erythema and swelling. Medical oncology consulted for question on Paget's disease of the breast versus cutaneous lymphoma. She is scheduled for a skin biopsy 10/09/[address] Sandoval. ALLERGIES: Please see below. HOME MEDICATIONS: Please see below. PAST MEDICAL HISTORY: hrombotic history as follows: - 1996 left arm "clot" during treatment for cellulitis s/p antibiotics, no anticoagulation required per the patient. - 1998 left lower extremity DVT following 13 [address] ride s/p Coumadin x6 months. - 1999 right lower extremity DVT - details unclear to patient. S/P IVC filter (patient thinks she may have had a GI bleed at that time, but is not sure), subsequently had Coumadin x 6 months. IVC filter in since 1999. Was subsequently told she has had a migration into the higher IVC, asymptomatic history. - 2000 right upper extremity DVT when diagnosed with cellulitis - s/p IV antibiotics, s/p Coumadin x6 months. Liver cirrhosis secondary to alpha-1 antitrypsin deficiency. Portal hypertension. GAVE. Periodic APC treatment. Bilateral sciatica/DJD. History of right CVA. History of seizures. Cholecystectomy. Hemorrhoidectomy. Appendectomy. Tonsillectomy. Adenoidectomy. section. Hysterectomy with bilateral salpingo-oophorectomy. Left knee arthroscopy. Incarcerated abdominal hernia repair. COPD. CHF. History of kidney stones. Osteoporosis. History of hypothyroidism. FAMILY HISTORY: Her father had breast cancer. Younger brother has esophageal cancer. SOCIAL HISTORY: Does not smoke. Does not drink alcohol. . Has 2 grown children. REVIEW OF SYSTEMS: CONSTITUTIONAL: Reports fever. Reports weight loss. Reports night sweats. HEENT: No headaches. No changes in eyesight. CARDIOVASCULAR: Reports shortness of breath. No chest pain. RESPIRATORY: Reports no cough. Reports shortness of breath on exertion. GENITOURINARY: Reports urinary frequency. MUSCULOSKELETAL: Reports back pain. GASTROINTESTINAL: Reports diarrhea. No abdominal pains. No nausea, no vomiting. SKIN: Recurring erythema on left arm and left breast. NEUROLOGICAL: Reports headaches. HEMATOLOGIC/LYMPHATIC: Reports easy bruising. PHYSICAL EXAMINATION: VITAL SIGNS: Please see below. GENERAL APPEARANCE: Initially seen asleep Lying comfortably in bed, not in distress. Answered questions appropriately when awakened. Obese. HEENT: Pinkish conjunctivae, anicteric sclerae. RESPIRATORY: Lungs fair air entry. No rales or rhonchi. No wheeze. CARDIOVASCULAR: S1, S2 regular. ABDOMEN: Soft, positive bowel sounds, nontender, suboptimal exam secondary to body habitus. EXTREMITIES: No cyanosis. No clubbing. NEUROLOGICAL: Alert, moved extremity spontaneously. PSYCHIATRIC: No anxiety LABORATORY DATA: Please see below. ASSESSMENT/PLAN: 65-year-old with history of anemia, multifactorial in etiology secondary to iron deficiency secondary to GI bleed, splenic sequestration, h/o B12 deficiency. Also has pancytopenia secondary to hypersplenism secondary to cirrhosis/portal hypertension Admitted for recurring erythema on left arm and left breast. ?Inflammatory versus malignant etiology? The patient needs a skin biopsy to assess for malignancy. Scheduled to have this done by Dr. Sandoval on October 09. Will arrange follow-up as an outpatient. Thank you for referring Mrs. Tina Saucedo. Vital Signs/I&O Vital Signs Date Time Temp Pulse Resp B/P (MAP) Pulse Ox O2 Delivery O2 Flow Rate FiO2 10/03/20 08:14 64 119/56 10/03/20 04:49 96.2 20 92 Nasal Cannula I&O- Last 24 Hours up to 6 AM 10/03/20 06:00 Intake Total 1300 ml Output Total 0 ml Balance 1300 ml Laboratory Data Labs 24H Laboratory Tests 2 10/02/20 20:27: Methicillin-Resist S.aureus DNA PCR DETECTEDA Allergies Coded Allergies: naloxone (Verified Allergy, Unknown, sz, 10/01/20) codeine (Verified Adverse Reaction, Intermediate, CHESP PAIN, 10/01/20) ibuprofen (Verified Adverse Reaction, Intermediate, JOINT/ MUSCLE PAIN, 10/01/20) pregabalin (Verified Adverse Reaction, Intermediate, chest pain, 10/01/20) amoxicillin (Verified Adverse Reaction, Mild, vomiting and diarrhea, 10/01/20) clavulanic acid (Verified Adverse Reaction, Mild, vomiting and diarrhea, 10/01/20) erythromycin base (Verified Adverse Reaction, Mild, vomting diarrhea, 10/01/20) hydromorphone (Verified Adverse Reaction, Mild, ITCHING, 10/01/20) CAN TAKE IF BENADRYL GIVEN PRIOR Home Medications Scheduled Apixaban (Eliquis) 2.5 Mg Tablet, 2.5 MG PO BID, (Reported) Bisoprolol Fumarate (Bisoprolol Fumarate) 5 Mg Tablet, 5 MG PO BID, (Reported) Calcium Carbonate (Calcium) 500 Mg Tablet, 1,000 MG PO QHS, (Reported) Cyanocobalamin (Vitamin B-12) (Vitamin B-12) 1,000 Mcg Tablet, 1,000 MCG PO DAILY, (Reported) Cyclobenzaprine HCl (Cyclobenzaprine HCl) 10 Mg Tablet, 10 MG PO TID, (Reported) Gabapentin (Gabapentin) 800 Mg Tablet, 800 MG PO BID, (Reported) Gabapentin (Gabapentin) 400 Mg Capsule, 400 MG PO DAILY, (Reported) TAKES AT 1500 Levothyroxine Sodium (Levothyroxine Sodium) 88 Mcg Tablet, 88 MCG PO DAILY, (Reported) Pantoprazole Sodium (Pantoprazole Sodium) 40 Mg Tablet.dr, 40 MG PO BID, (Reported) Potassium Chloride (Potassium Chloride) 20 Meq Tab.er.prt, 20 MEQ PO QHS, (Reported) Prednisone (Prednisone) 10 Mg Tablet, 10 MG PO TAPER, #30 Take 4 tabs daily x 3 days, then 3 tabs daily x 3 days, then 2 tabs daily x 3 days, then 1 tab daily x 3 days and stop Torsemide (Torsemide) 20 Mg Tablet, 20 MG PO BID, (Reported) 0900, 1500 Trazodone HCl (Trazodone HCl) 150 Mg Tablet, 150 MG PO QHS, (Reported) Triamcinolone Acet (Triamcinolone Acetonide 0.1% Oint) 15 Gm Oint...g., 1 APLCT TOP BID for 5 Days, #15 apply to affected area(s) Venlafaxine HCl (Venlafaxine HCl ER) 75 Mg Cap.er.24h, 75 MG PO DAILY, (Reported) Venlafaxine HCl (Venlafaxine HCl ER) 75 Mg Cap.er.24h, 150 MG PO QHS, (Reported) Vitamin B Complex (Vitamin B Complex) 1 Each Tablet, 1 TAB PO DAILY, (Reported) TERRY LU MD Oct 03, 2020 12:54
[2020-10-03 13:15] LABS: ANTINUCLEAR ANTIBODIES DIRECT Negative (Negative)
[2020-10-03 14:37] VITALS: BP 114/56
--- NOTE | 2020-10-05 10:55 | IPN ---
PROGRESS NOTE DATE: 10/03/2020 Tina is going home today. She continues complaining of some left arm pain and leg pain. The redness is not worse. She received one dose of prednisone and hydroxyzine with famotidine today. She does complain of some itching of the left forearm, which is erythematous as well. The rest of these areas are not itchy. She has not had any fever, chills, nausea, vomiting or diarrhea. PHYSICAL EXAMINATION: Left arm is erythematous. Left forearm is erythematous, but they are not contiguous. There is a white band across the wrist that has no area of redness. Left breast has an area of redness that measures about 15 x 7 cm that is not contiguous with the arm. Left flank is slightly tender to touch, mildly erythematous and left thigh as well. She has some petechial lesion of the site as well. IMPRESSION: 1. Erythematous macules that are painful on the arm, breast, thigh and abdomen that are not all contiguous and some are tender to touch, especially in the flank area, but that might be the sight of her splenomegaly, and others are pruritic, especially the forearm. From an infectious disease standpoint, this is not cellulitic in nature. She had no documented fever, no white count, no elevation in erythrocyte sedimentation rate (ESR). Her C-reactive protein (CRP) is slightly elevated. The patient has not been on antibiotics for 24 hours and it has not worsened. She had received prior, in the previous admission, six days of intravenous (IV) vancomycin followed by five days of doxycycline. 2. 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 The patient had an MRSA swab this hospitalization and did not know that she was MRSA positive. She is on contact isolation. PLAN: I would not recommend discharging patient on antibiotics. She just finished a ten day course of antibiotic with six days of vancomycin and five days of doxycycline. She will follow up with Dr. Sandoval, Dr. Aguirre from oncology. No new medications have been started except for Eliquis somewhere in July, which she was supposed to take for three months. The patient also takes IV Injectafer iron that she has been taking for over a year.
== END 2020-10-03 19:20 | disposition home or self-care (01) | DRG 385 ==
LOC: M ED 19:11 → M ED INP 23:33 → ENRESERV 10-02 01:09 → M MS5PR 10-02 01:45
PROVIDERS: ADMIT Internal Medicine; ATTEND General Practice
DX: L50.9 Urticaria, unspecified (principal); D61.818 Other pancytopenia; E88.01 Alpha-1-antitrypsin deficiency; I69.354 Hemiplegia and hemiparesis following cerebral infarction affecting left non-dominant side; I50.9 Heart failure, unspecified; R16.1 Splenomegaly, not elsewhere classified; E66.01 Morbid (severe) obesity due to excess calories; Z68.44 Body mass index [BMI] 60.0-69.9, adult; G62.9 Polyneuropathy, unspecified; K75.81 Nonalcoholic steatohepatitis (NASH); E78.5 Hyperlipidemia, unspecified; F32.9 Major depressive disorder, single episode, unspecified; K44.9 Diaphragmatic hernia without obstruction or gangrene; K21.9 Gastro-esophageal reflux disease without esophagitis; G43.909 Migraine, unspecified, not intractable, without status migrainosus; E53.8 Deficiency of other specified B group vitamins; Z86.718 Personal history of other venous thrombosis and embolism; Z79.899 Other long term (current) drug therapy; Z88.5 Allergy status to narcotic agent; Z88.8 Allergy status to other drugs, medicaments and biological substances; Z79.01 Long term (current) use of anticoagulants; E03.9 Hypothyroidism, unspecified

== ENCOUNTER → 2020-10-09 | Outpatient (REF) | payer OTHER ==
[~2020-10-09] MED LIST changes: +PRED10TA2 PO; +TRIA1OI TOP
== END ==
LOC: M LAB REF 18:41
PROVIDERS: ATTEND Dermatology
DX: D48.9 Neoplasm of uncertain behavior, unspecified (principal)

== ENCOUNTER → 2020-10-15 | Outpatient (REF) | payer OTHER, MEDICAID ==
[2020-10-15 17:17] LABS: BASO % 0.3 % (0.0-1.0); EOS # 0.3 10^3/uL (0.0-0.5); EOS % 9.6 % (0.0-3.0); HEMATOCRIT 34.6 % (36.0-47.0); HEMOGLOBIN 10.3 g/dl (12.0-15.5); LYMPH # 0.6 10^3/uL (1.5-5.0); LYMPH % 18.5 % (24.0-44.0); MEAN CORPUSCULAR HEMOGLOBIN 31.8 pg (27.0-33.0); MEAN CORPUSCULAR HGB CONC 29.8 g/dl (32.0-36.5); MEAN CORPUSCULAR VOLUME 106.8 fl (80.0-96.0); MONO # 0.2 10^3/uL (0.0-0.8); MONO % 6.4 % (0.0-5.0); NEUTROPHILS % 64.9 % (36.0-66.0); RED BLOOD COUNT 3.24 10^6/uL (4.00-5.40); WHITE BLOOD COUNT 3.1 10^3/uL (4.0-10.0)
[2020-10-15 17:18] LABS: PLATELET COUNT, AUTOMATED 48 10^3/uL (150-450)
[2020-10-15 17:30] LABS: BLOOD UREA NITROGEN 15 MG/DL (7-18); CARBON DIOXIDE LEVEL 28 MEQ/L (21-32); CHLORIDE LEVEL 111 MEQ/L (98-107); CREATININE FOR GFR 0.72 MG/DL (0.55-1.30); GLOMERULAR FILTRATION RATE > 60.0 (>45); GLUCOSE, FASTING 91 MG/DL (70-100); POTASSIUM SERUM 4.4 MEQ/L (3.5-5.1); SODIUM LEVEL 145 MEQ/L (136-145)
== END ==
LOC: M SFHCPLAZ 14:47
PROVIDERS: ATTEND Family Medicine
DX: K92.1 Melena (principal); R21 Rash and other nonspecific skin eruption

== ENCOUNTER 2020-10-23 18:06 | Observation (INO) | payer OTHER ==
[~2020-10-23] VITALS: Ht 162.6 cm; Wt 168.9 kg
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
--- OUTSIDE RECORDS SUMMARY | 2020-10-23 18:16 | CCD | Continuity of Care Document ---
Author Organization Unknown Address Unknown Phone Unavailable Care Team Providers Care Check Airman Name Role Phone Judi Reynolds MD AUT[facility] [phone] Kaveh Tillman MD [facility] [phone] Brien Shirley MD [facility] [phone] Problems Active Problems Provider Date Paroxysmal atrial fibrillation Judi Garsia PA-C Onset: 0 04/02/2020 Dietary management surveillance Judi Garsia PA-C Onset: 04/02/2020 Electrocardiogram abnormal Judi Garsia PA-C Onset: 04/02 Edema Judi Garsia PA-C Onset: 04/02/2020 Chronic diastolic heart failure Judi Garsia PA-C Onset: 04/02/2020 Social History Type Date Description Comments Sex Unknown ETOH Use Does not consume alcohol Tobacco Use Start: Unknown Patient has never smoked Smoking Status Reviewed: 04/02/20 Patient has never smoked Exercise Type/Frequency Walks daily Exercise Type/Frequency Does housework 3 times a week Exercise Limitations Other Hip Dysplas ia, osteoporosis Exercise Limitations Shortness Of Breath Allergies, Adverse Reactions, Alerts Active Allergies Reaction Severity Comments Date Narcan seizures, highly combative 0 03/21/2019 Codeine severe chest pain 03/21/2019 Lyrica chest pain and irregular hea rtbeat 03/21/2019 Augmentin diarrhea, vomiting 9 Erythromycin diarrhea, vomiting 9 Tetracycline turned teeth yellow 03/21/20 19 Ibuprofen severe joint and muscle pain 03/21/2019 Dilaudid itching 03/21/2019 Seasonal 03/21/2019 Medications Active Medications SIG Qnty Indications Ordering Provide r Date Lactulose 10GM/15ML Solution drink 15 milliliters by mouth once daily Unknown 04/01/2020 Bisoprolol Fumarate 5mg Tablets 1 by mouth twice a day at 9am and 9pm Unknown 04/01 Sucralfate 1gm Tablets 1 by mouth four times a day Unknown 04/01/2020 Vitamin B Complex-C Capsules 1 by mouth every day at 9am Unknown 04/01/2020 Vitamin B-12 1000mcg Tablets 1 by mouth every morning Unknown 04/01/2020 Oxygen - Home 2L via NC while sleeping and as needed during wakeful hours Kaveh Tillman MD 04/01/2020 Pantoprazole Sodium 40mg Tablets D R 1 by mouth twice every day Judi Reynolds MD 2018 Potassium Chloride ER 20Meq Tablet s ER 1 by mouth every day Judi Reynolds MD 9 Torsemide 20mg Tablets 1 by mouth twice every day Judi Reynolds MD 03/21/2019 Spironolactone 25mg Tablets 1 by mouth every day Judi Reynolds MD 03/21/2019 Levothyroxine Sodium 88mcg Tablets 1 by mouth every day Judi Reynolds MD 03/21/2019 Cyclobenzaprine HCL 10mg Tablets 1 by mouth three times a day Judi Reynolds MD 03/12 Stool Softener 100mg Capsules 1 by mouth every day Unknown 03/21/2019 Imodium A-D 2mg Capsules 1 tabs by mouth as needed Unknown 03/21/2019 Vitamin D-3 5000Unit Tablets 1 by mouth every day Judi Reynolds MD 03/21/2019 Simethicone 180mg Capsules 1 by mouth 4 times daily as needed Unknown 03/21/2019 Calcium 600 600mg Tablets 2 by mouth every day Unknown 03/21/2019 Trazodone HCL 150mg Tablets 1 by mouth every night at bedtime Judi Reynolds MD 03/21 Effexor XR 75mg Caps ER 24HR 1 by mouth every morning and 2 by mouth at bedtime Judi Reynolds MD 03/21/2019 Gabapentin 800mg Tablets 1 by mouth twice a day Judi Reynolds MD 03/21/2019 Gabapentin 400mg Capsules 1 by mouth once a day Judi Reynolds MD 03/21/2019 Immunizations Description No Information Available Vital Signs Date Vital Result Comment 04/02/2020 10:40am Weight 330.00 lb Height 64 inches 5'4" BMI (Body Mass Index) 56.6 kg/m2 Heart Rate 72 /min Regular Respiratory Rate 16 /min BP Systolic Right Arm 126 mmHg sitting, large cuf f BP Diastolic Right Arm 68 mmHg sitting, large cu ff 03/22/2019 12:33pm Weight 311.00 lb Height 64 inches 5'4" BMI (Body Mass Index) 53.4 kg/m2 Heart Rate 72 /min BP Systolic Sitting 124 mmHg [place]ron large adult cu ff, [place] Forearm BP Diastolic Sitting 79 mmHg [employer]ron large adult c uff, [place] Forearm Results Test Acquired Date Facility Test Result H/L Range Note [facility] 10/01/2020 [facility] - not interfaced (315)- - Calcium Ser/Plasma Mass/Vol 8.9 Sodium 142 Carbon Dioxide Ser/Plasm 28 Chloride Serum/Plasma 110 Potassium 3.8 Glucose 95 70-100 Blood Urea Nitrogen 18 7-18 Creatinine 0.85 0.55-1.30 G F R >60.0 CBC without Differential 10/01/2020 [facility] - not inter faced (315)- - White Blood Count 1.9 Low 4.0-10.0 Red Blood Count 3.09 Low 4.00-5.40 Platelets 43 Low 150-450 Hemoglobin 9.7 Hematocrit 31.7 CBC without Differential 09/25/2020 [facility] - not inter faced (315)- - White Blood Count 1.7 Low 4.0-10.0 Red Blood Count 3.03 Low 4.00-5.40 Platelets 36 Low 150-450 Hemoglobin 9.2 Hematocrit 31.9 Laboratory test finding 09/25/2020 [facility] - not interf aced (315)- - NT Probnp QN Ser/Plas 95 Troponin <0.02 [facility] 09/25/2020 [facility] - not interfaced (315)- - Calcium Ser/Plasma Mass/Vol 8.6 Sodium 141 Carbon Dioxide Ser/Plasm 31 Chloride Serum/Plasma 107 Potassium 4.1 Glucose 83 70-100 Blood Urea Nitrogen 19 High 7-18 Creatinine 0.69 0.55-1.30 G F R >60.0 Procedures Date Code Description Status 04/02/2020 38886 ECG 12-Lead Completed Medical Devices Description No Information Available Encounters Type Date Location Provider Dx Diagnosis Office Visit 04/02/2020 10:45a Main Office Judi Garsia PA-C I50.3 2 Chronic diastolic (congestive) heart failure I48.0 Paroxysmal atrial fibrillati on R60.0 Localized edema R94.31 Abnormal electrocardiogram [ ECG] [EKG] Z71.3 Dietary counseling and surve illance Assessments Date Code Description Provider 04/02/2020 I50.32 Chronic diastolic (congestive) h eart failure Judi Garsia PA-C 04/02/2020 I48.0 Paroxysmal atrial fibrillation K bill Garsia PA-C 04/02/2020 R60.0 Localized edema Judi Garsia PA-C 04/02/2020 R94.31 Abnormal electrocardiogram [ECG] [EKG] Judi Garsia PA-C 04/02/2020 Z71.3 Dietary counseling and surveilla kira Garsia PA-C Plan of Treatment Future Appointment(s):* 10/03/2020 11:30 am - Judi Garsia PA-C at Main Office 04/02/2020 - Judi Garsia PA-C* I50.32 Chronic diastolic (congestive) heart failure* Recommendations:* Follow a 2 grams sodium diet and 50 ounces fluid restriction per 24 hour and do daily weights. Call the office for weight gain of 3 lbs or more. * I48.0 Paroxysmal atrial fibrillation * R60.0 Localized edema * R94.31 Abnormal electrocardiogram [ECG] [EKG] * Z71.3 Dietary counseling and surveillance* Recommendations:* Follow a low fat/low cholesterol diet and do at least 30 minutes of sustained aerobic activity daily. * All * Follow up:* 6 month follow up. Functional Status Functional Condition Comment Date Status Independent with all ADL's Activ e Requires assistance with ambulating uses walker Active Mental Status Description No Information Available Referrals Description No Information Available
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
--- OUTSIDE RECORDS SUMMARY | 2020-10-23 18:16 | CCD | Continuity of Care Document ---
Author Organization Unknown Address Unknown Phone Unavailable Care Team Providers Care Substation Engineer Name Role Phone Judi Reynolds MD AUTM [phone] Kaveh Tillman MD AUTM [phone] Brien Shirley MD AUTM [phone] Problems Active Problems Provider Date Paroxysmal atrial [...] Date Facility Test Result H/L Range Note CBC without Differential 09/25/2020 [facility] - not inter faced (315)- - White Blood Count 1.7 Low 4.0-10.0 Red Blood Count 3.03 Low 4.00-5.40 Platelets 36 Low 150-450 Hemoglobin 9.2 Hematocrit 31.9 Laboratory test finding 09/25/2020 [facility] - not interf aced (315)- - NT Probnp QN Ser/Plas 95 Troponin <0.02 [facility] [place]/25/2020 [facility] - not interfaced (315)- - Calcium Ser/Plasma Mass/Vol 8.6 Sodium 141 Carbon Dioxide Ser/Plasm 31 Chloride Serum/Plasma 107 Potassium 4.1 Glucose 83 70-100 Blood Urea Nitrogen 19 High 7-18 Creatinine 0.69 0.55-1.30 G F R >60.0 Procedures Date Code Description Status 04/02/2020 47036 ECG 12-Lead Completed Medical Devices Description No [...] PA-C 04/02/2020 Z71.3 Dietary counseling and surveilla nce Judi Garsia PA-C Plan of Treatment Future Appointment(s):* [...]
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
--- OUTSIDE RECORDS SUMMARY | 2020-10-23 18:18 | CCD ---
Author Author [facility] Organization [facility] Address Unknown Phone Unavailable Care Team Providers Care Escapement Maker Name Role Phone Renetta Garsia PA Unavailable Unavailable Symenow, Renetta Lau PA Unavailable Unavailable Symenow, Renetta Lau PA Unavailable Unavailable Symenow, Renetta Lau PA Unavailable Unavailable Symenovelma, Renetta Lau PA Unavailable Unavailable SymenowRenetta PA Unavailable Unavailable Symenovelma, Renetta Lau PA [...] Renetta Judi PA Unavailable Unavailable Symenow, Renetta Ujdi PA Unavailable Unavailable Symenow, Renetta Judi PA [...] Judi PA Unavailable Unavailable QUIROZ, H DEON MEDICARE COORDINATOR Unavailable Unavailable QUIROZ, H DEON MEDICARE COORDINATOR Unavailable Unavailable QUIROZ, H DEON MEDICARE COORDINATOR Unavailable Unavailable QUIROZ, H DEON MEDICARE COORDINATOR Unavailable Unavailable QUIROZ, H DEON MEDICARE COORDINATOR Unavailable Unavailable QUIROZ, H DEON MEDICARE COORDINATOR Unavailable Unavailable QUIROZ, H DEON MEDICARE COORDINATOR Unavailable Unavailable QUIROZ, H DEON MEDICARE COORDINATOR Unavailable Unavailable QUIROZ, H DEON MEDICARE COORDINATOR Unavailable Unavailable QUIROZ, H DEON MEDICARE COORDINATOR Unavailable Unavailable QUIROZ, H DEON MEDICARE COORDINATOR Unavailable Unavailable QUIROZ, H DEON MEDICARE COORDINATOR Unavailable Unavailable QUIROZ, H DEON MEDICARE COORDINATOR Unavailable Unavailable QUIROZ, H DEON MEDICARE COORDINATOR Unavailable Unavailable QUIROZ, H DEON MEDICARE COORDINATOR Unavailable Unavailable QUIROZ, H DEON MEDICARE COORDINATOR Unavailable Unavailable QUIROZ, H DEON MEDICARE COORDINATOR Unavailable Unavailable QUIROZ, H DEON MEDICARE COORDINATOR Unavailable Unavailable QUIROZ, H DEON MEDICARE COORDINATOR Unavailable Unavailable QUIROZ, H DEON MEDICARE COORDINATOR Unavailable Unavailable QUIROZ, H DEON MEDICARE COORDINATOR Unavailable Unavailable QUIROZ, H DEON MEDICARE COORDINATOR Unavailable Unavailable QUIROZ, H DEON MEDICARE COORDINATOR Unavailable Unavailable QUIROZ, H DEON MEDICARE COORDINATOR Unavailable Unavailable QUIROZ, H DEON MEDICARE COORDINATOR Unavailable Unavailable QUIROZ, H DEON MEDICARE COORDINATOR Unavailable Unavailable QUIROZ, H DEON MEDICARE COORDINATOR Unavailable Unavailable QUIROZ, H DEON MEDICARE COORDINATOR Unavailable Unavailable QUIROZ, H DEON MEDICARE COORDINATOR Unavailable Unavailable QUIROZ, H DEON MEDICARE COORDINATOR Unavailable Unavailable QUIROZ, H DEON MEDICARE COORDINATOR Unavailable Unavailable QUIROZ, H DEON MEDICARE COORDINATOR Unavailable Unavailable QUIROZ, H DEON MEDICARE COORDINATOR Unavailable Unavailable QUIROZ, H DEON MEDICARE COORDINATOR Unavailable Unavailable QUIROZ, H DEON MEDICARE COORDINATOR Unavailable Unavailable QUIROZ, H DEON MEDICARE COORDINATOR Unavailable Unavailable QUIROZ, H DEON MEDICARE COORDINATOR Unavailable Unavailable QUIROZ, H DEON MEDICARE COORDINATOR Unavailable Unavailable QUIROZ, H DEON MEDICARE COORDINATOR Unavailable Unavailable QUIROZ, H DEON MEDICARE COORDINATOR Unavailable Unavailable QUIROZ, H DEON MEDICARE COORDINATOR Unavailable Unavailable QUIROZ, H DEON MEDICARE COORDINATOR Unavailable Unavailable QUIROZ, H DEON MEDICARE COORDINATOR Unavailable Unavailable QUIROZ, H DEON MEDICARE COORDINATOR Unavailable Unavailable QUIROZ, H DEON MEDICARE COORDINATOR Unavailable Unavailable QUIROZ, H DEON MEDICARE COORDINATOR Unavailable Unavailable QUIROZ, H DEON MEDICARE COORDINATOR Unavailable Unavailable QUIROZ, H DEON MEDICARE COORDINATOR Unavailable Unavailable QUIROZ, H DEON MEDICARE COORDINATOR Unavailable Unavailable QUIROZ, H DEON MEDICARE COORDINATOR Unavailable Unavailable QUIROZ, H DEON MEDICARE COORDINATOR Unavailable Unavailable QUIROZ, H DEON MEDICARE COORDINATOR Unavailable Unavailable QUIROZ, H DEON MEDICARE COORDINATOR Unavailable Unavailable QUIROZ, H DEON MEDICARE COORDINATOR Unavailable Unavailable QUIROZ, H DEON MEDICARE COORDINATOR Unavailable Unavailable Busby, L Abbi RPA Unavailable [...] L Abbi RPA Unavailable Unavailable Busby, L Babi RPA Unavailable Unavailable Busby, L Abbi RPA [...] Unavailable Unavailable Ruddy WHITMAN MD Unavailable Unavailable TOREYRALRuddy Barahona MD Unavailable Unavailable TOREYRALRuddy Barahona MD Unavailable Unavailable Ruddy WHITMAN MD Unavailable [...] Unavailable Unavailable Ruddy WHITMAN MD Unavailable Unavailable TOREYRALRuddy Barahona MD Unavailable Unavailable TOREYRALRuddy Barahona MD Unavailable Unavailable Re-disclosure Warning The records [...] is protected by Article 27-F of the [facility] Public Health law. If you continue you may have access to information: Regarding HIV / AIDS; Provided by facilities licensed or operated by the [facility] Office of Mental Health; or Provided by the [facility] Office for People With Developmental Disabilities. If such information is present, then the following [facility] mandated warning applies: This information has [...] Codeine severe chest pain Active e CW1 ([facility]) tetracycline Tetracycline HCl Tetracycline turned teeth yellow Activ e eCW1 ([facility]) Drug allergy IBU Ibuprofen severe joint and muscle pain Acti ve eCW1 ([facility]) Drug allergy Lyrica pregabalin chest pain and irregular heartbeat Active eCW1 ([facility]) Drug allergy Narcan Naloxone seizures and highly combative Act renny eCW1 ([facility]) Drug allergy Augmentin amoxicillin / clavulanate Diarrhea, vomiting Active eCW1 ([facility]) Drug allergy Dilaudid Hydromorphone itching Active eCW1 ([facility]) Erythromycin Erythromycin Erythromycin Vomiting, Diarrhea Active eCW1 ([facility]) seasonal,dust,mold,ragweed,chestnut blossoms, cut g seasonal,dust,mold,ragweed,chestnut blossoms, cut g seasonal,dust,mold,ragweed,chestnut blossoms, cut g Dyspnea Active eCW1 ([facility]) seasonal,dust,mold,ragweed,chestnut blossoms, cut g seasonal,dust,mold,ragweed,chestnut blossoms, cut g seasonal,dust,mold,ragweed,chestnut blossoms, cut g Dyspnea Active eCW1 ([facility]) Codeine Sulfate Codeine Sulfate Codeine Sulfate severe chest pain Ac tive eCW1 ([facility]) Family History Family Member Name Family Member Gender Family Member Status Date o f Status Description Data Source(s) Unknown Male Problem MEDENT ([facility]) Encounters Encounter Providers Location Date Indications Data Source(s ) Unknown [address] [facility] [id number] 10/16/2020 12:00:00 AM EST eCW1 ([facility]) Unknown [address] [facility] [address] 10/16/2020 12:00:00 AM EST eCW1 ([facility]) (TCM) Transition of Care Visit [address] [place] [address] 10/15/2020 12:00:00 AM EST eCW1 ([facility]) Outpatient [address] [facility] [id number] 10/09/2020 12:00:00 AM EST eCW1 ([facility]) Unknown [address] [facility] [address] 10/06/2020 12:00:00 AM EST eCW1 ([facility]) Unknown [address] [facility] [address] 10/01/2020 12:00:00 AM EST eCW1 ([facility]) Unknown [address] [facility] [address] 09/30/2020 12:00:00 AM EST [facility]CW[facility] Unknown [address] [facility] [address] 09/30/2020 12:00:00 AM EST eCW1 ([facility]) Unknown [address] [facility] [address] 09/19/2020 12:00:00 AM EST eCW1 [facility] Outpatient [address] [facility] [id number] 09/10/2020 12:00:00 AM EST eCW1 [facility] [place] [address] [facility] [address] 09/09/2020 12:00:00 AM EST eCW1 ([facility] [place] [address] [facility] [address] 09/02/2020 12:00:00 AM EST eCW1 ([facility]) [place] [address] [facility] [address] 09/01/2020 12:00:00 AM EST eCW1 ([facility]) [place] [address] [facility] [address] 08/21/2020 12:00:00 AM EST eCW1 ([facility]) [place] [address] [facility] [address] 08/12/2020 12:00:00 AM EST eCW1 ([facility]) [place] [address] [facility] [address] 08/04/2020 12:00:00 AM EST eCW1 ([facility]) [place] [address] [facility] [address] 07/09/2020 12:00:00 AM EDT eCW1 ([facility]) [place] [address] [facility] [address] 07/08/2020 12:00:00 AM EDT eCW1 ([facility]) [place] [address] [facility] [address] 06/24/2020 12:00:00 AM EDT eCW1 ([facility]) Outpatient Attender: Judi SMITH Main Office 04/02/2020 10:45:00 AM EDT MEDENT ([facility]) [place] [address] [facility] [address] 03/24/2020 12:00:00 AM EDT eCW1 ([facility]) [place] [address] [facility] [address] 03/21/2020 12:00:00 AM EDT eCW1 ([facility]) Outpatient Referrer: DEON QUIROZ NP 02/28/2020 06:12:00 AM E DT [facility] Unknown [address] [place] [address] [address] 02/20/2020 12:00:00 AM EDT eCW1 ([facility]) Outpatient [address] [place] [address], [place] [address] 02/15/2020 12:00:00 AM EDT eCW1 ([facility]) [address] [address] 02/07/2020 12:00:00 AM EDT eCW1 ([facility]) Outpatient Attender: FRANCISCO Mora/Omar/Kaden anderson/Reinjulita 01/17/2020 03:40:00 PM EDT MEDENT ([facility] [address] [address] 01/15/2020 12:00:00 AM EDT eCW1 ([facility]) [address] [address] 01/07/2020 12:00:00 AM EDT eCW1 ([facility]) [address] [address] 01/03/2020 12:00:00 AM EDT eCW1 ([facility]) Outpatient Referrer: DEON QUIROZ MEDICARE COORDINATOR 12/13/2019 05:53:00 AM E DT [facility] Outpatient Attender: Abbi Mora/Omar/Dmitriy/R eindl 12/11/2019 11:00:00 AM EDT MEDENT ([facility] [address] [address] 12/07/2019 12:00:00 AM EDT eCW1 ([facility]) [address] [address] 11/26/2019 12:00:00 AM EDT eCW1 ([facility] [place] [address] [facility] [address] 11/23/2019 12:00:00 AM EDT eCW1 ([facility]) [facility] [place] [address] [facility] [address] 11/19/2019 12:00:00 AM EDT eCW1 ([facility]) [facility] [address] [facility] [address] 11/07/2019 12:00:00 AM EST eCW1 ([facility]) [facility] [address] [facility] [address] 11/07/2019 12:00:00 AM EST eCW1 ([facility]) Outpatient Referrer: DEON QUIROZ NP 11/06/2019 02:23:[address] [facility] [address] [facility] [address] 11/06/2019 12:00:00 AM EST eCW1 ([facility]) [facility] [address] [facility] [address] 10/29/2019 12:00:00 AM EST eCW1 ([facility]) [facility] [address] [place] [address] [address] 10/08/2019 12:00:00 AM EST eCW1 ([facility]) Outpatient Referrer: DEON QUIROZ NP 10/04/2019 01:37:[address] [facility] Outpatient Referrer: DEON QUIROZ NP 09/28/2019 05:46:[address] [facility] [address] [place] [address] [address] 09/26/2019 12:00:00 AM EST eCW1 ([facility]) [facility] [address] [facility] [address] 09/21/2019 12:00:00 AM EST eCW1 ([facility]) [facility] [address] [facility] [address] 09/19/2019 12:00:00 AM EST eCW1 ([facility]) [facility] [address] [facility] [address] 09/13/2019 12:00:00 AM EST eCW1 ([facility]) Outpatient Referrer: DEON QUIROZ NP 08/28/2019 09:07:00 PM E [facility] [address] [facility] [address] 08/27/2019 12:00:00 AM EST eCW1 ([facility]) Immunizations Vaccine Date Status Description Data Source(s) influenza, recombinant, quadrIvalent,injectable, prese rvative free 07/09/2020 11:09:00 AM EDT completed eCW1 ([facility]) influenza, recombinant, quadrIvalent,injectable, prese rvative free 07/09/2020 11:09:00 AM EDT completed eCW1 ([facility]) influenza, recombinant, quadrIvalent,injectable, prese rvative free 07/09/2020 11:09:00 AM EDT completed eCW1 ([facility]) influenza, recombinant, quadrIvalent,injectable, prese rvative free 07/09/2020 11:09:00 AM EDT completed eCW1 ([facility]) influenza, recombinant, quadrIvalent,injectable, prese rvative free 07/09/2020 11:09:00 AM EDT completed eCW1 ([facility]) influenza, recombinant, quadrIvalent,injectable, prese rvative free 07/09/2020 11:09:00 AM EDT completed eCW1 ([facility]) influenza, recombinant, quadrIvalent,injectable, prese rvative free 07/09/2020 11:09:00 AM EDT completed eCW1 ([facility]) influenza, recombinant, quadrIvalent,injectable, prese rvative free 07/09/2020 11:09:00 AM EDT completed eCW1 ([facility]) influenza, recombinant, quadrIvalent,injectable, prese rvative free 07/09/2020 11:09:00 AM EDT completed eCW1 ([facility]) influenza, recombinant, quadrIvalent,injectable, prese rvative free 07/09/2020 11:09:00 AM EDT completed eCW1 ([facility]) influenza, recombinant, quadrIvalent,injectable, prese rvative free 07/09/2020 11:09:00 AM EDT completed eCW1 ([facility]) influenza, recombinant, quadrIvalent,injectable, prese rvative free 07/09/2020 11:09:00 AM EDT completed eCW1 ([facility]) influenza, recombinant, quadrIvalent,injectable, prese rvative free 07/09/2020 11:09:00 AM EDT completed eCW1 ([facility]) influenza, recombinant, quadrIvalent,injectable, prese rvative free 07/09/2020 11:09:00 AM EDT completed eCW1 ([facility]) influenza, recombinant, quadrIvalent,injectable, prese rvative free 07/09/2020 11:09:00 AM EDT completed eCW1 ([facility]) influenza, recombinant, quadrIvalent,injectable, prese rvative free 07/09/2020 11:09:00 AM EDT completed eCW1 ([facility]) influenza, recombinant, quadrIvalent,injectable, prese rvative free 07/09/2020 11:09:00 AM EDT completed eCW1 ([facility]) influenza, recombinant, quadrIvalent,injectable, prese rvative free 07/09/2020 11:09:00 AM EDT completed eCW1 ([facility]) Medications Medication Brand Name Start Date Product Form Dose Route Admi nistrative Instructions Pharmacy Instructions Status Indications Reaction Description Data Source(s) Prednisone 10 MG Oral Tablet PredniSONE 10 MG PredniSONE 10 MG 10/03/2020 12:00:00 AM EST 1.0 {tablet} active Pr edniSONE 10 MG eCW1 ([facility]) Triamcinolone Acetonide 1 MG/ML Topical Cream Triamcin olone Acetonide 0.1 % Triamcinolone Acetonide 0.1 % 10/03/2020 12:00:00 AM EST 1.0 {appli cation} active Triamcinolone Acetonide 0 .1 % eCW1 ([facility]) Prednisone 10 MG Oral Tablet PredniSONE 10 MG PredniSONE 10 MG 10/03/2020 12:00:00 AM EST 1.0 {tablet} active Pr edniSONE 10 MG eCW1 ([facility]) Prednisone 10 MG Oral Tablet PredniSONE 10 MG PredniSONE 10 MG 10/03/2020 12:00:00 AM EST 1.0 {tablet} active Pr edniSONE 10 MG eCW1 ([facility]) Prednisone 10 MG Oral Tablet PredniSONE 10 MG PredniSONE 10 MG 10/03/2020 12:00:00 AM EST 1.0 {tablet} active Pr edniSONE 10 MG eCW1 ([facility]) Prednisone 10 MG Oral Tablet PredniSONE 10 MG PredniSONE 10 MG 10/03/2020 12:00:00 AM EST 1.0 {tablet} active Pr edniSONE 10 MG eCW1 ([facility]) Cephalexin 500 MG Oral Capsule [Keflex] Keflex 500 MG Keflex 500 MG 09/10/2020 12:00:00 AM EST 1.0 {capsule} active K eflex 500 MG eCW1 ([facility]) Cephalexin 500 MG Oral Capsule [Keflex] Keflex 500 MG Keflex 500 MG 09/10/2020 12:00:00 AM EST 1.0 {capsule} active K eflex 500 MG eCW1 ([facility]) Cephalexin 500 MG Oral Capsule [Keflex] Keflex 500 MG Keflex 500 MG 09/10/2020 12:00:00 AM EST 1.0 {capsule} active K eflex 500 MG eCW1 ([facility]) Cephalexin 500 MG Oral Capsule [Keflex] Keflex 500 MG Keflex 500 MG 09/10/2020 12:00:00 AM EST 1.0 {capsule} active K eflex 500 MG eCW1 ([facility]) Cephalexin 500 MG Oral Capsule [Keflex] Keflex 500 MG Keflex 500 MG 09/10/2020 12:00:00 AM EST 1.0 {capsule} active K eflex 500 MG eCW1 ([facility]) apixaban 2.5 MG Oral Tablet [Eliquis] Eliquis 2.5 MG Eliquis 2.5 MG 08/12/2020 12:00:00 AM EST suspended Eliqu is 2.5 MG eCW1 ([facility]) apixaban 2.5 MG Oral Tablet [Eliquis] Eliquis 2.5 MG Eliquis 2.5 MG 08/12/2020 12:00:00 AM EST active Eliquis 2.5 MG eCW1 ([facility]) apixaban 2.5 MG Oral Tablet [Eliquis] Eliquis 2.5 MG Eliquis 2.5 MG 08/12/2020 12:00:00 AM EST active Eliquis 2.5 MG eCW1 ([facility]) apixaban 2.5 MG Oral Tablet [Eliquis] Eliquis 2.5 MG Eliquis 2.5 MG 08/12/2020 12:00:00 AM EST active Eliquis 2.5 MG eCW1 ([facility]) apixaban 2.5 MG Oral Tablet [Eliquis] Eliquis 2.5 MG Eliquis 2.5 MG 08/12/2020 12:00:00 AM EST active Eliquis 2.5 MG eCW1 ([facility]) apixaban 2.5 MG Oral Tablet [Eliquis] Eliquis 2.5 MG Eliquis 2.5 MG 08/12/2020 12:00:00 AM EST suspended Eliqu is 2.5 MG eCW1 ([facility]) apixaban 2.5 MG Oral Tablet [Eliquis] Eliquis 2.5 MG Eliquis 2.5 MG 08/12/2020 12:00:00 AM EST active Eliquis 2.5 MG eCW1 ([facility]) apixaban 2.5 MG Oral Tablet [Eliquis] Eliquis 2.5 MG Eliquis 2.5 MG 08/12/2020 12:00:00 AM EST suspended Eliqu is 2.5 MG eCW1 ([facility]) apixaban 2.5 MG Oral Tablet [Eliquis] Eliquis 2.5 MG Eliquis 2.5 MG 08/12/2020 12:00:00 AM EST active Eliquis 2.5 MG eCW1 ([facility]) apixaban 2.5 MG Oral Tablet [Eliquis] Eliquis 2.5 MG Eliquis 2.5 MG 08/12/2020 12:00:00 AM EST suspended Eliqu is 2.5 MG eCW1 ([facility]) apixaban 2.5 MG Oral Tablet [Eliquis] Eliquis 2.5 MG Eliquis 2.5 MG 08/12/2020 12:00:00 AM EST active Eliquis 2.5 MG eCW1 ([facility]) apixaban 2.5 MG Oral Tablet [Eliquis] Eliquis 2.5 MG Eliquis 2.5 MG 08/12/2020 12:00:00 AM EST active Eliquis 2.5 MG eCW1 ([facility]) apixaban 2.5 MG Oral Tablet [Eliquis] Eliquis 2.5 MG Eliquis 2.5 MG 08/12/2020 12:00:00 AM EST active Eliquis 2.5 MG eCW1 ([facility]) apixaban 2.5 MG Oral Tablet [Eliquis] Eliquis 2.5 MG Eliquis 2.5 MG 08/12/2020 12:00:00 AM EST active Eliquis 2.5 MG eCW1 ([facility]) apixaban 2.5 MG Oral Tablet [Eliquis] Eliquis 2.5 MG Eliquis 2.5 MG 08/12/2020 12:00:00 AM EST active Eliquis 2.5 MG eCW1 ([facility]) apixaban 2.5 MG Oral Tablet [Eliquis] Eliquis 2.5 MG Eliquis 2.5 MG 08/12/2020 12:00:00 AM EST active Eliquis 2.5 MG eCW1 ([facility]) Loperamide Hydrochloride 2 MG Oral Capsule [Imodium] I modium A-D 2 MG Imodium A- D 2 MG 08/01/2020 12:00:00 AM EST 1.0 {capsule_as_needed} active Imodium A-D 2 MG eCW1 ([facility]) Loperamide Hydrochloride 2 MG Oral Capsule [Imodium] I modium A-D 2 MG Imodium A- D 2 MG 08/01/2020 12:00:00 AM EST 1.0 {capsule_as_needed} active Imodium A-D 2 MG eCW1 ([facility]) Loperamide Hydrochloride 2 MG Oral Capsule [Imodium] I modium A-D 2 MG Imodium A- D 2 MG 08/01/2020 12:00:00 AM EST 1.0 {capsule_as_needed} active Imodium A-D 2 MG eCW1 ([facility]) Loperamide Hydrochloride 2 MG Oral Capsule [Imodium] I modium A-D 2 MG Imodium A- D 2 MG 08/01/2020 12:00:00 AM EST 1.0 {capsule_as_needed} active Imodium A-D 2 MG eCW1 ([facility]) Loperamide Hydrochloride 2 MG Oral Capsule [Imodium] I modium A-D 2 MG Imodium A- D 2 MG 08/01/2020 12:00:00 AM EST 1.0 {capsule_as_needed} active Imodium A-D 2 MG eCW1 ([facility]) Loperamide Hydrochloride 2 MG Oral Capsule [Imodium] I modium A-D 2 MG Imodium A- D 2 MG 08/01/2020 12:00:00 AM EST 1.0 {capsule_as_needed} active Imodium A-D 2 MG eCW1 ([facility]) Loperamide Hydrochloride 2 MG Oral Capsule [Imodium] I modium A-D 2 MG Imodium A- D 2 MG 08/01/2020 12:00:00 AM EST 1.0 {capsule_as_needed} active Imodium A-D 2 MG eCW1 ([facility]) Loperamide Hydrochloride 2 MG Oral Capsule [Imodium] I modium A-D 2 MG Imodium A- D 2 MG 08/01/2020 12:00:00 AM EST 1.0 {capsule_as_needed} active Imodium A-D 2 MG eCW1 ([facility]) Loperamide Hydrochloride 2 MG Oral Capsule [Imodium] I modium A-D 2 MG Imodium A- D 2 MG 08/01/2020 12:00:00 AM EST 1.0 {capsule_as_needed} active Imodium A-D 2 MG eCW1 ([facility]) Loperamide Hydrochloride 2 MG Oral Capsule [Imodium] I modium A-D 2 MG Imodium A- D 2 MG 08/01/2020 12:00:00 AM EST 1.0 {capsule_as_needed} active Imodium A-D 2 MG eCW1 ([facility]) Loperamide Hydrochloride 2 MG Oral Capsule [Imodium] I modium A-D 2 MG Imodium A- D 2 MG 08/01/2020 12:00:00 AM EST 1.0 {capsule_as_needed} active Imodium A-D 2 MG eCW1 ([facility]) Levofloxacin 750 MG Oral Tablet Levofloxacin 750 MG 07/09/2020 1 2:00:00 AM EDT 1.0 {tablet} suspended Levofloxa darius 750 MG eCW1 ([facility]) Levofloxacin 750 MG Oral Tablet Levofloxacin 750 MG 07/09/2020 1 2:00:00 AM EDT 1.0 {tablet} active Levofloxaci n 750 MG eCW1 ([facility]) Levofloxacin 750 MG Oral Tablet Levofloxacin 750 MG 07/09/2020 1 2:00:00 AM EDT 1.0 {tablet} active Levofloxaci n 750 MG eCW1 ([facility]) Levofloxacin 750 MG Oral Tablet Levofloxacin 750 MG 07/09/2020 1 2:00:00 AM EDT 1.0 {tablet} active Levofloxaci n 750 MG eCW1 ([facility]) Levofloxacin 750 MG Oral Tablet Levofloxacin 750 MG 07/09/2020 1 2:00:00 AM EDT 1.0 {tablet} active Levofloxaci n 750 MG eCW1 ([facility]) Levofloxacin 750 MG Oral Tablet Levofloxacin 750 MG 07/09/2020 1 2:00:00 AM EDT 1.0 {tablet} active Levofloxaci n 750 MG eCW1 ([facility]) Levofloxacin 750 MG Oral Tablet Levofloxacin 750 MG 07/09/2020 1 2:00:00 AM EDT 1.0 {tablet} suspended Levofloxa darius 750 MG eCW1 ([facility]) Levofloxacin 750 MG Oral Tablet Levofloxacin 750 MG 07/09/2020 1 2:00:00 AM EDT 1.0 {tablet} suspended Levofloxa darius 750 MG eCW1 ([facility]) Levofloxacin 750 MG Oral Tablet Levofloxacin 750 MG 07/09/2020 1 2:00:00 AM EDT 1.0 {tablet} active Levofloxaci n 750 MG eCW1 (Formerly [facility]) Levofloxacin 750 MG Oral Tablet Levofloxacin 750 MG 07/09/2020 1 2:00:00 AM EDT 1.0 {tablet} active Levofloxaci n 750 MG eCW1 (Formerly [facility]) Levofloxacin 750 MG Oral Tablet Levofloxacin 750 MG 07/09/2020 1 2:00:00 AM EDT 1.0 {tablet} suspended Levofloxa darius 750 MG eCW1 (Formerly [facility]) Levofloxacin 750 MG Oral Tablet Levofloxacin 750 MG 07/09/2020 1 2:00:00 AM EDT 1.0 {tablet} active Levofloxaci n 750 MG eCW1 (Formerly [facility]) Levofloxacin 750 MG Oral Tablet Levofloxacin 750 MG 07/09/2020 1 2:00:00 AM EDT 1.0 {tablet} active Levofloxaci n 750 MG eCW1 (Formerly [facility]) Levofloxacin 750 MG Oral Tablet Levofloxacin 750 MG 07/09/2020 1 2:00:00 AM EDT 1.0 {tablet} active Levofloxaci n 750 MG eCW1 (Formerly [facility]) Levofloxacin 750 MG Oral Tablet Levofloxacin 750 MG 07/09/2020 1 2:00:00 AM EDT 1.0 {tablet} active Levofloxaci n 750 MG eCW1 (Formerly [facility]) Levofloxacin 750 MG Oral Tablet Levofloxacin 750 MG 07/09/2020 1 2:00:00 AM EDT 1.0 {tablet} active Levofloxaci n 750 MG eCW1 (Formerly [facility]) Levofloxacin 750 MG Oral Tablet Levofloxacin 750 MG 07/09/2020 1 2:00:00 AM EDT 1.0 {tablet} active Levofloxaci n 750 MG eCW1 (Formerly [facility]) Levofloxacin 750 MG Oral Tablet Levofloxacin 750 MG 07/09/2020 1 2:00:00 AM EDT 1.0 {tablet} suspended Levofloxa darius 750 MG eCW1 (Formerly [facility]) Sucralfate 1000 MG Oral Tablet Sucralfate 04/01/2020 12:00:00 AM EDT ORAL active [facility] ([facility] Vitamin B Complex-C 04/01/2020 12:00:00 AM EDT ORAL active [facility] ([facility]) Vitamin B 12 1 MG Oral Tablet Vitamin B-12 04/01/2020 12:00:00 AM EDT ORAL active [facility] ([facility]) Oxygen - Home 04/01/2020 12:00:00 AM EDT acti ve [facility] ([facility]) Lactulose 667 MG/ML Oral Solution Lactulose 04/01/2020 12:00:00 AM EDT ORAL active [facility] ([facility]) Bisoprolol Fumarate 5 MG Oral Tablet Bisoprolol Fumarate 12:00:00 AM EDT ORAL active [facility] ([facility]) gabapentin 800 MG Oral Tablet Gabapentin 800 MG Gabapentin 8 00 MG 02/19/2020 12:00:00 AM EDT 1.0 {tablet} active Ga bapentin 800 MG eCW1 (Formerly [facility]) Albuterol 0.833 MG/ML / Ipratropium Brom doyle 0.167 MG/ML Inhalant Solution Ipratropium-Albuterol 0.5-2.5 (3) MG/3ML Ipratropium-Albuterol 0.5-2.5 (3) MG/3ML 02/19/2020 12:00:00 AM EDT 3.0 {ml_as_needed} active Ipratropium-Albuterol 0.5-2.5 (3) MG/3ML eCW1 (Formerly [facility]) Cholecalciferol 10 MCG (400 UNIT) UNK 02/19/2020 12:00:00 AM EDT 1.0 {capsule} suspended Cholecalciferol 10 MCG (400 UNIT) eCW1 (Formerly [facility]) Albuterol 0.833 MG/ML / Ipratropium Brom doyle 0.167 MG/ML Inhalant Solution Ipratropium-Albuterol 0.5-2.5 (3) MG/3ML Ipratropium-Albuterol 0.5-2.5 (3) MG/3ML 02/19/2020 12:00:00 AM EDT 3.0 {ml_as_needed} active Ipratropium-Albuterol 0.5-2.5 (3) MG/3ML eCW1 (Formerly [facility]) gabapentin 800 MG Oral Tablet Gabapentin 800 MG Gabapentin 8 00 MG 02/19/2020 12:00:00 AM EDT 1.0 {tablet} active Ga bapentin 800 MG eCW1 (Formerly [facility]) gabapentin 800 MG Oral Tablet Gabapentin 800 MG Gabapentin 8 00 MG 02/19/2020 12:00:00 AM EDT 1.0 {tablet} active Ga bapentin 800 MG eCW1 (Formerly [facility]) Cholecalciferol 10 MCG (400 UNIT) UNK 02/19/2020 12:00:00 AM EDT 1.0 {capsule} active Cholecalciferol 10 MCG ( 400 UNIT) eCW1 ([facility]ly [facility]) Cholecalciferol 10 MCG (400 UNIT) UNK 02/19/2020 12:00:00 AM EDT 1.0 {capsule} active Cholecalciferol 10 MCG ( 400 UNIT) eCW1 ([facility]ly [facility]) Bisoprolol Fumarate 5 MG Oral Tablet Bisoprolol Fumarate 5 M G 02/19/2020 12:00:00 AM EDT 1.0 {tablet} active Bi soprolol Fumarate 5 MG eCW1 ([facility]) Bisoprolol Fumarate 5 MG Oral Tablet Bisoprolol Fumarate 5 M G 02/19/2020 12:00:00 AM EDT 1.0 {tablet} active Bi soprolol Fumarate 5 MG eCW1 ([facility]) Albuterol 0.833 MG/ML / Ipratropium Brom doyle 0.167 MG/ML Inhalant Solution Ipratropium-Albuterol 0.5-2.5 (3) MG/3ML Ipratropium-Albuterol 0.5-2.5 (3) MG/3ML 02/19/2020 12:00:00 AM EDT 3.0 {ml_as_needed} active Ipratropium-Albuterol 0.5-2.5 (3) MG/3ML eCW1 ([facility]) Bisoprolol Fumarate 5 MG Oral Tablet Bisoprolol Fumarate 5 M G 02/19/2020 12:00:00 AM EDT 1.0 {tablet} active Bi soprolol Fumarate 5 MG eCW1 ([facility]) Bisoprolol Fumarate 5 MG Oral Tablet Bisoprolol Fumarate 5 M G 02/19/2020 12:00:00 AM EDT 1.0 {tablet} active Bi soprolol Fumarate 5 MG eCW1 ([facility]) Cholecalciferol 10 MCG (400 UNIT) UNK 02/19/2020 12:00:00 AM EDT 1.0 {capsule} active Cholecalciferol 10 MCG ( 400 UNIT) eCW1 ([facility]) gabapentin 800 MG Oral Tablet Gabapentin 800 MG Gabapentin 8 00 MG 02/19/2020 12:00:00 AM EDT 1.0 {tablet} active Ga bapentin 800 MG eCW1 (Former[facility]) Albuterol 0.833 MG/ML / Ipratropium Brom doyle 0.167 MG/ML Inhalant Solution Ipratropium-Albuterol 0.5-2.5 (3) MG/3ML Ipratropium-Albuterol 0.5-2.5 (3) MG/3ML 02/19/2020 12:00:00 AM EDT 3.0 {ml_as_needed} active Ipratropium-Albuterol 0.5-2.5 (3) MG/3ML eCW1 ([facility]) Bisoprolol Fumarate 5 MG Oral Tablet Bisoprolol Fumarate 5 M G 02/19/2020 12:00:00 AM EDT 1.0 {tablet} active Bi soprolol Fumarate 5 MG eCW1 ([facility]) gabapentin 800 MG Oral Tablet Gabapentin 800 MG Gabapentin 8 00 MG 02/19/2020 12:00:00 AM EDT 1.0 {tablet} active Ga bapentin 800 MG eCW1 ([facility]) Bisoprolol Fumarate 5 MG Oral Tablet Bisoprolol Fumarate 5 M G 02/19/2020 12:00:00 AM EDT 1.0 {tablet} active Bi soprolol Fumarate 5 MG eCW1 ([facility]) gabapentin 800 MG Oral Tablet Gabapentin 800 MG Gabapentin 8 00 MG 02/19/2020 12:00:00 AM EDT 1.0 {tablet} active Ga bapentin 800 MG eCW1 ([facility]) Albuterol 0.833 MG/ML / Ipratropium Brom doyle 0.167 MG/ML Inhalant Solution Ipratropium-Albuterol 0.5-2.5 (3) MG/3ML Ipratropium-Albuterol 0.5-2.5 (3) MG/3ML 02/19/2020 12:00:00 AM EDT 3.0 {ml_as_needed} active Ipratropium-Albuterol 0.5-2.5 (3) MG/3ML eCW1 ([facility]) Albuterol 0.833 MG/ML / Ipratropium Brom doyle 0.167 MG/ML Inhalant Solution Ipratropium-Albuterol 0.5-2.5 (3) MG/3ML Ipratropium-Albuterol 0.5-2.5 (3) MG/3ML 02/19/2020 12:00:00 AM EDT 3.0 {ml_as_needed} active Ipratropium-Albuterol 0.5-2.5 (3) MG/3ML eCW1 ([facility]) Bisoprolol Fumarate 5 MG Oral Tablet Bisoprolol Fumarate 5 M G 02/19/2020 12:00:00 AM EDT 1.0 {tablet} active Bi soprolol Fumarate 5 MG eCW1 ([facility]) Cholecalciferol 10 MCG (400 UNIT) UNK 02/19/2020 12:00:00 AM EDT 1.0 {capsule} active Cholecalciferol 10 MCG ( 400 UNIT) eCW1 ([facility]) Albuterol 0.833 MG/ML / Ipratropium Brom doyle 0.167 MG/ML Inhalant Solution Ipratropium-Albuterol 0.5-2.5 (3) MG/3ML Ipratropium-Albuterol 0.5-2.5 (3) MG/3ML 02/19/2020 12:00:00 AM EDT 3.0 {ml_as_needed} suspended Ipratropium-Albuterol 0.5-2.5 (3) MG/3ML eCW1 ([facility]) Cholecalciferol 10 MCG (400 UNIT) UNK 02/19/2020 12:00:00 AM EDT 1.0 {capsule} active Cholecalciferol 10 MCG ( 400 UNIT) eCW1 ([facility]) Levofloxacin 500 MG Oral Tablet Levofloxacin 500 MG 02/19/2020 1 2:00:00 AM EDT 1.0 {tablet} active Levofloxaci n 500 MG eCW1 ([facility]) Bisoprolol Fumarate 5 MG Oral Tablet Bisoprolol Fumarate 5 M G 02/19/2020 12:00:00 AM EDT 1.0 {tablet} active Bi soprolol Fumarate 5 MG eCW1 ([facility]) gabapentin 800 MG Oral Tablet Gabapentin 800 MG Gabapentin 8 00 MG 02/19/2020 12:00:00 AM EDT 1.0 {tablet} active Ga bapentin 800 MG eCW1 ([facility]) Albuterol 0.833 MG/ML / Ipratropium Brom doyle 0.167 MG/ML Inhalant Solution Ipratropium-Albuterol 0.5-2.5 (3) MG/3ML Ipratropium-Albuterol 0.5-2.5 (3) MG/3ML 02/19/2020 12:00:00 AM EDT 3.0 {ml_as_needed} active Ipratropium-Albuterol 0.5-2.5 (3) MG/3ML eCW1 ([facility]) Bisoprolol Fumarate 5 MG Oral Tablet Bisoprolol Fumarate 5 M G 02/19/2020 12:00:00 AM EDT 1.0 {tablet} active Bi soprolol Fumarate 5 MG eCW1 ([facility]) Albuterol 0.833 MG/ML / Ipratropium Brom doyle 0.167 MG/ML Inhalant Solution Ipratropium-Albuterol 0.5-2.5 (3) MG/3ML Ipratropium-Albuterol 0.5-2.5 (3) MG/3ML 02/19/2020 12:00:00 AM EDT 3.0 {ml_as_needed} suspended Ipratropium-Albuterol 0.5-2.5 (3) MG/3ML eCW1 ([facility]) Cholecalciferol 10 MCG (400 UNIT) UNK 02/19/2020 12:00:00 AM EDT 1.0 {capsule} suspended Cholecalciferol 10 MCG (400 UNIT) eCW1 ([facility]) Cholecalciferol 10 MCG (400 UNIT) K 02/19/2020 12:00:00 AM EDT 1.0 {capsule} active Cholecalciferol 10 MCG ( 400 UNIT) eCW1 ([facility]) Albuterol 0.833 MG/ML / Ipratropium Brom doyle 0.167 MG/ML Inhalant Solution Ipratropium-Albuterol 0.5-2.5 (3) MG/3ML Ipratropium-Albuterol 0.5-2.5 (3) MG/3ML 02/19/2020 12:00:00 AM EDT 3.0 {ml_as_needed} active Ipratropium-Albuterol 0.5-2.5 (3) MG/3ML eCW1 ([facility]) Cholecalciferol 10 MCG (400 UNIT) K 02/19/2020 12:00:00 AM EDT 1.0 {capsule} active Cholecalciferol 10 MCG ( 400 UNIT) eCW1 ([facility]) Cholecalciferol 10 MCG (400 UNIT) UNK 02/19/2020 12:00:00 AM EDT 1.0 {capsule} active Cholecalciferol 10 MCG ( 400 UNIT) eCW1 ([facility]) Bisoprolol Fumarate 5 MG Oral Tablet Bisoprolol Fumarate 5 M G 02/19/2020 12:00:00 AM EDT 1.0 {tablet} active Bi soprolol Fumarate 5 MG eCW1 ([facility]) Bisoprolol Fumarate 5 MG Oral Tablet Bisoprolol Fumarate 5 M G 02/19/2020 12:00:00 AM EDT 1.0 {tablet} active Bi soprolol Fumarate 5 MG eCW1 ([facility]) Albuterol 0.833 MG/ML / Ipratropium Brom doyle 0.167 MG/ML Inhalant Solution Ipratropium-Albuterol 0.5-2.5 (3) MG/3ML Ipratropium-Albuterol 0.5-2.5 (3) MG/3ML 02/19/2020 12:00:00 AM EDT 3.0 {ml_as_needed} active Ipratropium-Albuterol 0.5-2.5 (3) MG/3ML eCW1 ([facility]) Cholecalciferol 10 MCG (400 UNIT) UNK 02/19/2020 12:00:00 AM EDT 1.0 {capsule} suspended Cholecalciferol 10 MCG (400 UNIT) eCW1 ([facility]) gabapentin 800 MG Oral Tablet Gabapentin 800 MG Gabapentin 8 00 MG 02/19/2020 12:00:00 AM EDT 1.0 {tablet} active Ga bapentin 800 MG eCW1 ([facility]) Albuterol 0.833 MG/ML / Ipratropium Brom doyle 0.167 MG/ML Inhalant Solution Ipratropium-Albuterol 0.5-2.5 (3) MG/3ML Ipratropium-Albuterol 0.5-2.5 (3) MG/3ML 02/19/2020 12:00:00 AM EDT 3.0 {ml_as_needed} suspended Ipratropium-Albuterol 0.5-2.5 (3) MG/3ML eCW1 ([facility]) Albuterol 0.833 MG/ML / Ipratropium Brom doyle 0.167 MG/ML Inhalant Solution Ipratropium-Albuterol 0.5-2.5 (3) MG/3ML Ipratropium-Albuterol 0.5-2.5 (3) MG/3ML 02/19/2020 12:00:00 AM EDT 3.0 {ml_as_needed} active Ipratropium-Albuterol 0.5-2.5 (3) MG/3ML eCW1 ([facility]) Albuterol 0.833 MG/ML / Ipratropium Brom doyle 0.167 MG/ML Inhalant Solution Ipratropium-Albuterol 0.5-2.5 (3) MG/3ML Ipratropium-Albuterol 0.5-2.5 (3) MG/3ML 02/19/2020 12:00:00 AM EDT 3.0 {ml_as_needed} active Ipratropium-Albuterol 0.5-2.5 (3) MG/3ML eCW1 ([facility]) gabapentin 800 MG Oral Tablet Gabapentin 800 MG Gabapentin 8 00 MG 02/19/2020 12:00:00 AM EDT 1.0 {tablet} active Ga bapentin 800 MG eCW1 ([facility]) Bisoprolol Fumarate 5 MG Oral Tablet Bisoprolol Fumarate 5 M G 02/19/2020 12:00:00 AM EDT 1.0 {tablet} active Bi soprolol Fumarate 5 MG eCW1 ([facility]) Albuterol 0.833 MG/ML / Ipratropium Brom doyle 0.167 MG/ML Inhalant Solution Ipratropium-Albuterol 0.5-2.5 (3) MG/3ML Ipratropium-Albuterol 0.5-2.5 (3) MG/3ML 02/19/2020 12:00:00 AM EDT 3.0 {ml_as_needed} active Ipratropium-Albuterol 0.5-2.5 (3) MG/3ML eCW1 ([facility]) Bisoprolol Fumarate 5 MG Oral Tablet Bisoprolol Fumarate 5 M G 02/19/2020 12:00:00 AM EDT 1.0 {tablet} active Bi soprolol Fumarate 5 MG eCW1 ([facility]) Albuterol 0.833 MG/ML / Ipratropium Brom doyle 0.167 MG/ML Inhalant Solution Ipratropium-Albuterol 0.5-2.5 (3) MG/3ML Ipratropium-Albuterol 0.5-2.5 (3) MG/3ML 02/19/2020 12:00:00 AM EDT 3.0 {ml_as_needed} active Ipratropium-Albuterol 0.5-2.5 (3) MG/3ML eCW1 ([facility]) Bisoprolol Fumarate 5 MG Oral Tablet Bisoprolol Fumarate 5 M G 02/19/2020 12:00:00 AM EDT 1.0 {tablet} active Bi soprolol Fumarate 5 MG eCW1 ([facility]) Albuterol 0.833 MG/ML / Ipratropium Brom doyle 0.167 MG/ML Inhalant Solution Ipratropium-Albuterol 0.5-2.5 (3) MG/3ML Ipratropium-Albuterol 0.5-2.5 (3) MG/3ML 02/19/2020 12:00:00 AM EDT 3.0 {ml_as_needed} active Ipratropium-Albuterol 0.5-2.5 (3) MG/3ML eCW1 ([facility]) Cholecalciferol 10 MCG (400 UNIT) UNK 02/19/2020 12:00:00 AM EDT 1.0 {capsule} active Cholecalciferol 10 MCG ( 400 UNIT) eCW1 ([facility]) gabapentin 800 MG Oral Tablet Gabapentin 800 MG Gabapentin 8 00 MG 02/19/2020 12:00:00 AM EDT 1.0 {tablet} active Ga bapentin 800 MG eCW1 ([facility]) Bisoprolol Fumarate 5 MG Oral Tablet Bisoprolol Fumarate 5 M G 02/19/2020 12:00:00 AM EDT 1.0 {tablet} active Bi soprolol Fumarate 5 MG eCW1 ([facility]) Cholecalciferol 10 MCG (400 UNIT) UNK 02/19/2020 12:00:00 AM EDT 1.0 {capsule} active Cholecalciferol 10 MCG ( 400 UNIT) eCW1 ([facility]) Albuterol 0.833 MG/ML / Ipratropium Brom doyle 0.167 MG/ML Inhalant Solution Ipratropium-Albuterol 0.5-2.5 (3) MG/3ML Ipratropium-Albuterol 0.5-2.5 (3) MG/3ML 02/19/2020 12:00:00 AM EDT 3.0 {ml_as_needed} active Ipratropium-Albuterol 0.5-2.5 (3) MG/3ML eCW1 ([facility]) gabapentin 800 MG Oral Tablet Gabapentin 800 MG Gabapentin 8 00 MG 02/19/2020 12:00:00 AM EDT 1.0 {tablet} active Ga bapentin 800 MG eCW1 ([facility]) Bisoprolol Fumarate 5 MG Oral Tablet Bisoprolol Fumarate 5 M G 02/19/2020 12:00:00 AM EDT 1.0 {tablet} active Bi soprolol Fumarate 5 MG eCW1 ([facility]) Bisoprolol Fumarate 5 MG Oral Tablet Bisoprolol Fumarate 5 M G 02/19/2020 12:00:00 AM EDT 1.0 {tablet} active Bi soprolol Fumarate 5 MG eCW1 ([facility]) gabapentin 800 MG Oral Tablet Gabapentin 800 MG Gabapentin 8 00 MG 02/19/2020 12:00:00 AM EDT 1.0 {tablet} active Ga bapentin 800 MG eCW1 ([facility]) Albuterol 0.833 MG/ML / Ipratropium Brom doyle 0.167 MG/ML Inhalant Solution Ipratropium-Albuterol 0.5-2.5 (3) MG/3ML Ipratropium-Albuterol 0.5-2.5 (3) MG/3ML 02/19/2020 12:00:00 AM EDT 3.0 {ml_as_needed} suspended Ipratropium-Albuterol 0.5-2.5 (3) MG/3ML eCW1 ([facility]) Levofloxacin 500 MG Oral Tablet Levofloxacin 500 MG 02/19/2020 1 2:00:00 AM EDT 1.0 {tablet} active Levofloxaci n 500 MG eCW1 ([facility]) Cholecalciferol 10 MCG (400 UNIT) UNK 02/19/2020 12:00:00 AM EDT 1.0 {capsule} active Cholecalciferol 10 MCG ( 400 UNIT) eCW1 ([facility]) Albuterol 0.833 MG/ML / Ipratropium Brom doyle 0.167 MG/ML Inhalant Solution Ipratropium-Albuterol 0.5-2.5 (3) MG/3ML Ipratropium-Albuterol 0.5-2.5 (3) MG/3ML 02/19/2020 12:00:00 AM EDT 3.0 {ml_as_needed} active Ipratropium-Albuterol 0.5-2.5 (3) MG/3ML eCW1 ([facility]) Cholecalciferol 10 MCG (400 UNIT) UNK 02/19/2020 12:00:00 AM EDT 1.0 {capsule} suspended Cholecalciferol 10 MCG (400 UNIT) eCW1 ([facility]) Cholecalciferol 10 MCG (400 UNIT) UNK 02/19/2020 12:00:00 AM EDT 1.0 {capsule} active Cholecalciferol 10 MCG ( 400 UNIT) eCW1 ([facility]) gabapentin 800 MG Oral Tablet Gabapentin 800 MG Gabapentin 8 00 MG 02/19/2020 12:00:00 AM EDT 1.0 {tablet} active Ga bapentin 800 MG eCW1 ([facility]) Cholecalciferol 10 MCG (400 UNIT) UNK 02/19/2020 12:00:00 AM EDT 1.0 {capsule} active Cholecalciferol 10 MCG ( 400 UNIT) eCW1 ([facility]) gabapentin 800 MG Oral Tablet Gabapentin 800 MG Gabapentin 8 00 MG 02/19/2020 12:00:00 AM EDT 1.0 {tablet} active Ga bapentin 800 MG eCW1 ([facility]) Cholecalciferol 10 MCG (400 UNIT) UNK 02/19/2020 12:00:00 AM EDT 1.0 {capsule} active Cholecalciferol 10 MCG ( 400 UNIT) eCW1 ([facility]) Bisoprolol Fumarate 5 MG Oral Tablet Bisoprolol Fumarate 5 M G 02/19/2020 12:00:00 AM EDT 1.0 {tablet} active Bi soprolol Fumarate 5 MG eCW1 ([facility]) Cholecalciferol 10 MCG (400 UNIT) UNK 02/19/2020 12:00:00 AM EDT 1.0 {capsule} active Cholecalciferol 10 MCG ( 400 UNIT) eCW1 ([facility]) gabapentin 800 MG Oral Tablet Gabapentin 800 MG Gabapentin 8 00 MG 02/19/2020 12:00:00 AM EDT 1.0 {tablet} active Ga bapentin 800 MG eCW1 ([facility]) gabapentin 800 MG Oral Tablet Gabapentin 800 MG Gabapentin 8 00 MG 02/19/2020 12:00:00 AM EDT 1.0 {tablet} active Ga bapentin 800 MG eCW1 ([facility]) Bisoprolol Fumarate 5 MG Oral Tablet Bisoprolol Fumarate 5 M G 02/19/2020 12:00:00 AM EDT 1.0 {tablet} active Bi soprolol Fumarate 5 MG eCW1 ([facility]) Bisoprolol Fumarate 5 MG Oral Tablet Bisoprolol Fumarate 5 M G 02/19/2020 12:00:00 AM EDT 1.0 {tablet} active Bi soprolol Fumarate 5 MG eCW1 ([facility]) gabapentin 800 MG Oral Tablet Gabapentin 800 MG Gabapentin 8 00 MG 02/19/2020 12:00:00 AM EDT 1.0 {tablet} active Ga bapentin 800 MG eCW1 ([facility]) gabapentin 800 MG Oral Tablet Gabapentin 800 MG Gabapentin 8 00 MG 02/19/2020 12:00:00 AM EDT 1.0 {tablet} active Ga bapentin 800 MG eCW1 ([facility]) Cholecalciferol 10 MCG (400 UNIT) UNK 02/19/2020 12:00:00 AM EDT 1.0 {capsule} active Cholecalciferol 10 MCG ( 400 UNIT) eCW1 ([facility]) gabapentin 800 MG Oral Tablet Gabapentin 800 MG Gabapentin 8 00 MG 02/19/2020 12:00:00 AM EDT 1.0 {tablet} active Ga bapentin 800 MG eCW1 ([facility]) gabapentin 800 MG Oral Tablet Gabapentin 800 MG Gabapentin 8 00 MG 02/19/2020 12:00:00 AM EDT 1.0 {tablet} active Ga bapentin 800 MG eCW1 ([facility]) gabapentin 800 MG Oral Tablet Gabapentin 800 MG Gabapentin 8 00 MG 02/19/2020 12:00:00 AM EDT 1.0 {tablet} active Ga bapentin 800 MG eCW1 ([facility]) gabapentin 800 MG Oral Tablet Gabapentin 800 MG Gabapentin 8 00 MG 02/19/2020 12:00:00 AM EDT 1.0 {tablet} active Ga bapentin 800 MG eCW1 ([facility]) Cholecalciferol 10 MCG (400 UNIT) UNK 02/19/2020 12:00:00 AM EDT 1.0 {capsule} active Cholecalciferol 10 MCG ( 400 UNIT) eCW1 ([facility]) Albuterol 0.833 MG/ML / Ipratropium Brom doyle 0.167 MG/ML Inhalant Solution Ipratropium-Albuterol 0.5-2.5 (3) MG/3ML Ipratropium-Albuterol 0.5-2.5 (3) MG/3ML 02/19/2020 12:00:00 AM EDT 3.0 {ml_as_needed} suspended Ipratropium-Albuterol 0.5-2.5 (3) MG/3ML eCW1 ([facility]) Albuterol 0.833 MG/ML / Ipratropium Brom doyle 0.167 MG/ML Inhalant Solution Ipratropium-Albuterol 0.5-2.5 (3) MG/3ML Ipratropium-Albuterol 0.5-2.5 (3) MG/3ML 02/19/2020 12:00:00 AM EDT 3.0 {ml_as_needed} active Ipratropium-Albuterol 0.5-2.5 (3) MG/3ML eCW1 ([facility]) Bisoprolol Fumarate 5 MG Oral Tablet Bisoprolol Fumarate 5 M G 02/19/2020 12:00:00 AM EDT 1.0 {tablet} active Bi soprolol Fumarate 5 MG eCW1 ([facility]) Albuterol 0.833 MG/ML / Ipratropium Brom doyle 0.167 MG/ML Inhalant Solution Ipratropium-Albuterol 0.5-2.5 (3) MG/3ML Ipratropium-Albuterol 0.5-2.5 (3) MG/3ML 02/19/2020 12:00:00 AM EDT 3.0 {ml_as_needed} active Ipratropium-Albuterol 0.5-2.5 (3) MG/3ML eCW1 ([facility]) Bisoprolol Fumarate 5 MG Oral Tablet Bisoprolol Fumarate 5 M G 02/19/2020 12:00:00 AM EDT 1.0 {tablet} active Bi soprolol Fumarate 5 MG eCW1 ([facility]) Cholecalciferol 10 MCG (400 UNIT) UNK 02/19/2020 12:00:00 AM EDT 1.0 {capsule} suspended Cholecalciferol 10 MCG (400 UNIT) eCW1 ([facility]) Bisoprolol Fumarate 5 MG Oral Tablet Bisoprolol Fumarate 5 M G 02/19/2020 12:00:00 AM EDT 1.0 {tablet} active Bi soprolol Fumarate 5 MG eCW1 ([facility]) gabapentin 800 MG Oral Tablet Gabapentin 800 MG Gabapentin 8 00 MG 02/19/2020 12:00:00 AM EDT 1.0 {tablet} active Ga bapentin 800 MG eCW1 (Formerly [facility]) Cholecalciferol 10 MCG (400 UNIT) UNK 02/19/2020 12:00:00 AM EDT 1.0 {capsule} active Cholecalciferol 10 MCG ( 400 UNIT) eCW1 (Formerly [facility]) Lactulose 667 MG/ML Oral Solution Lactulose 01/17/2020 12:00:00 AM EDT active MEDENT ([facility]) Fluticasone Propionate 50 MCG/ACT Fluticasone Propionate 50 MCG/ACT 12/07/2019 12:00:00 AM EDT 1.0 {spray_in_each_nostril} acti ve Fluticasone Propionate 50 MCG/ACT eCW1 (Formerly [facility]) Fluticasone Propionate 50 MCG/ACT Fluticasone Propionate 50 MCG/ACT 12/07/2019 12:00:00 AM EDT 1.0 {spray_in_each_nostril} susp ended Fluticasone Propionate 50 MCG/ACT eCW1 (Formerly [facility]) Fluticasone Propionate 50 MCG/ACT Fluticasone Propionate 50 MCG/ACT 12/07/2019 12:00:00 AM EDT 1.0 {spray_in_each_nostril} susp ended Fluticasone Propionate 50 MCG/ACT eCW1 (Formerly [facility]) Fluticasone Propionate 50 MCG/ACT Fluticasone Propionate 50 MCG/ACT 12/07/2019 12:00:00 AM EDT 1.0 {spray_in_each_nostril} acti ve Fluticasone Propionate 50 MCG/ACT eCW1 (Formerly [facility]) Fluticasone Propionate 50 MCG/ACT Fluticasone Propionate 50 MCG/ACT 12/07/2019 12:00:00 AM EDT 1.0 {spray_in_each_nostril} susp ended Fluticasone Propionate 50 MCG/ACT eCW1 (Formerly [facility]) Fluticasone Propionate 50 MCG/ACT Fluticasone Propionate 50 MCG/ACT 12/07/2019 12:00:00 AM EDT 1.0 {spray_in_each_nostril} acti ve Fluticasone Propionate 50 MCG/ACT eCW1 (Formerly [facility]) Fluticasone Propionate 50 MCG/ACT Fluticasone Propionate 50 MCG/ACT 12/07/2019 12:00:00 AM EDT 1.0 {spray_in_each_nostril} acti ve Fluticasone Propionate 50 MCG/ACT eCW1 (Formerly [facility]) Fluticasone Propionate 50 MCG/ACT Fluticasone Propionate 50 MCG/ACT 12/07/2019 12:00:00 AM EDT 1.0 {spray_in_each_nostril} acti ve Fluticasone Propionate 50 MCG/ACT eCW1 (Formerly [facility]) Fluticasone Propionate 50 MCG/ACT Fluticasone Propionate 50 MCG/ACT 12/07/2019 12:00:00 AM EDT active 1 spray in each nostril eCW1 (Formerly [facility]) Fluticasone Propionate 50 MCG/ACT Fluticasone Propionate 50 MCG/ACT 12/07/2019 12:00:00 AM EDT 1.0 {spray_in_each_nostril} acti ve Fluticasone Propionate 50 MCG/ACT eCW1 (Formerly [facility]) Fluticasone Propionate 50 MCG/ACT Fluticasone Propionate 50 MCG/ACT 12/07/2019 12:00:00 AM EDT 1.0 {spray_in_each_nostril} acti ve Fluticasone Propionate 50 MCG/ACT eCW1 (Formerly [facility]) Fluticasone Propionate 50 MCG/ACT Fluticasone Propionate 50 MCG/ACT 12/07/2019 12:00:00 AM EDT 1.0 {spray_in_each_nostril} susp ended Fluticasone Propionate 50 MCG/ACT eCW1 (Formerly [facility]) Fluticasone Propionate 50 MCG/ACT Fluticasone Propionate 50 MCG/ACT 12/07/2019 12:00:00 AM EDT 1.0 {spray_in_each_nostril} acti ve Fluticasone Propionate 50 MCG/ACT eCW1 (Formerly [facility]) Fluticasone Propionate 50 MCG/ACT Fluticasone Propionate 50 MCG/ACT 12/07/2019 12:00:00 AM EDT 1.0 {spray_in_each_nostril} acti ve Fluticasone Propionate 50 MCG/ACT eCW1 (Formerly [facility]) Fluticasone Propionate 50 MCG/ACT Fluticasone Propionate 50 MCG/ACT 12/07/2019 12:00:00 AM EDT 1.0 {spray_in_each_nostril} acti ve Fluticasone Propionate 50 MCG/ACT eCW1 (Formerly [facility]) Fluticasone Propionate 50 MCG/ACT Fluticasone Propionate 50 MCG/ACT 12/07/2019 12:00:00 AM EDT 1.0 {spray_in_each_nostril} acti ve Fluticasone Propionate 50 MCG/ACT eCW1 (Formerly [facility]) Fluticasone Propionate 50 MCG/ACT Fluticasone Propionate 50 MCG/ACT 12/07/2019 12:00:00 AM EDT 1.0 {spray_in_each_nostril} acti ve Fluticasone Propionate 50 MCG/ACT eCW1 (Formerly [facility]) Fluticasone Propionate 50 MCG/ACT Fluticasone Propionate 50 MCG/ACT 12/07/2019 12:00:00 AM EDT active 1 spray in each nostril eCW1 (Formerly [facility]) Fluticasone Propionate 50 MCG/ACT Fluticasone Propionate 50 MCG/ACT 12/07/2019 12:00:00 AM EDT 1.0 {spray_in_each_nostril} acti ve Fluticasone Propionate 50 MCG/ACT eCW1 (Formerly [facility]) Fluticasone Propionate 50 MCG/ACT Fluticasone Propionate 50 MCG/ACT 12/07/2019 12:00:00 AM EDT 1.0 {spray_in_each_nostril} acti ve Fluticasone Propionate 50 MCG/ACT eCW1 (Formerly [facility]) Fluticasone Propionate 50 MCG/ACT Fluticasone Propionate 50 MCG/ACT 12/07/2019 12:00:00 AM EDT 1.0 {spray_in_each_nostril} acti ve Fluticasone Propionate 50 MCG/ACT eCW1 (Formerly [facility]) Fluticasone Propionate 50 MCG/ACT Fluticasone Propionate 50 MCG/ACT 12/07/2019 12:00:00 AM EDT 1.0 {spray_in_each_nostril} acti ve Fluticasone Propionate 50 MCG/ACT eCW1 (Formerly [facility]) Fluticasone Propionate 50 MCG/ACT Fluticasone Propionate 50 MCG/ACT 12/07/2019 12:00:00 AM EDT 1.0 {spray_in_each_nostril} susp ended Fluticasone Propionate 50 MCG/ACT eCW1 (Formerly [facility]) Fluticasone Propionate 50 MCG/ACT Fluticasone Propionate 50 MCG/ACT 12/07/2019 12:00:00 AM EDT 1.0 {spray_in_each_nostril} acti ve Fluticasone Propionate 50 MCG/ACT eCW1 (Formerly [facility]) Fluticasone Propionate 50 MCG/ACT Fluticasone Propionate 50 MCG/ACT 12/07/2019 12:00:00 AM EDT 1.0 {spray_in_each_nostril} acti ve Fluticasone Propionate 50 MCG/ACT eCW1 (Formerly [facility]) Spironolactone 25 MG Oral Tablet Spironolactone 25 MG active 1 tablet with food eCW1 ([facility]) Spironolactone 25 MG Oral Tablet Spironolactone 25 MG active 1 tablet with food eCW1 ([facility]) Spironolactone 25 MG Oral Tablet Spironolactone 25 MG active 1 tablet with food eCW1 ([facility]) Spironolactone 25 MG Oral Tablet Spironolactone 25 MG active 1 tablet with food eCW1 ([facility]) Spironolactone 25 MG Oral Tablet Spironolactone 25 MG active 1 tablet with food eCW1 ([facility]) Spironolactone 25 MG Oral Tablet Spironolactone 25 MG active 1 tablet with food eCW1 ([facility]) Spironolactone 25 MG Oral Tablet Spironolactone 25 MG active 1 tablet with food eCW1 ([facility]) Spironolactone 25 MG Oral Tablet Spironolactone 25 MG active 1 tablet with food eCW1 ([facility]) Spironolactone 25 MG Oral Tablet Spironolactone 25 MG active 1 tablet with food eCW1 ([facility]) Spironolactone 25 MG Oral Tablet Spironolactone 25 MG active 1 tablet with food eCW1 ([facility]) Spironolactone 25 MG Oral Tablet Spironolactone 25 MG active 1 tablet with food eCW1 ([facility]) Spironolactone 25 MG Oral Tablet Spironolactone 25 MG active 1 tablet with food eCW1 ([facility]) Spironolactone 25 MG Oral Tablet Spironolactone 25 MG active 1 tablet with food eCW1 ([facility]) Insurance Providers Payer name Policy type / Coverage type Policy ID Covered green party ID Covered green party's relationship to mena Policy Mena Plan Information BHARTI [id number] SP [id number] EMEDNY [id number] SP [id number] BHARTI [facility] [id number] S [id number] BHARIT [id number] SP [id number] ANSI-Commercial [id number] ANSI-Medicaid [id number] ANSI-Commercial [id number]-nmy0-0u10-[id number] ANSI-Medicaid [id number] [facility] Medicaid [id number] Self [id number] [place] [facility] (HMO) [id number] 800 Self [id number] Medicaid Medigap Part B [id number] Self [id number] [place] - Medicaid [employer] (HMO) [id number] Self [id number] [facility]-Medicaid [id number] MEDICAID [id number] SP [id number] ANSI-Medicaid [id number] ANSI-Medicaid [id number] Medicaid P [id number] S [id number] ANSI-Commercial [id number]-gh52-411d-8s1a-[id number]-[id number] ANSI-Medicaid [id number] ANSI-Commercial cty4lucq-4mj8-7y2u-334e-vo75cm45pyt9 ded9uslt-9oo0-1j3r-695x-yu34cg95rra0 ANSI-Medicaid [id number] ANSI-Commercial [id number]-c727-9068-ol6x-[id number] 132i7e59-l964-9116-uv8p-[id number] [facility] [id number] [facility] [id number] ANSI-Commercial 8cw1n092-591a-5378-3113-7826rwx0d254 7ku0n375-902k-1560-9687-2241ftm8g621 ANSI-Commercial 5blw0hi6-4039-2796-3oll-[id number] 2uyg5bm6-8646-9852-7tkn-[id number] ANSI-Commercial [id number]73k0fe2569y 640609k9-3251-45b6-1327-619s1ki1181j [facility] [id number] ANSI-Medicaid [id number] ANSI-Commercial 2dq0i4z8-yr0e-99d6-b794-0w540s5y20c8 2nm1a2j1-qw2i-28s3-l367-9p623w8b60t1 ANSI-Medicaid [id number] ANSI-Medicaid [id number] [employer] [id number]-ls00-6w4csb2sm7pz ANSI-Medicaid [id number] ANSI-Medicaid [id number]-[id number] ANSI-Commercial e9237gdl-[id number] c1258sow-6jj2-2y30-70n5-9679fo722950 ANSI-Commercial u678282x-78kn-4o0q-a393-sv28q75470u1 q073706g-07ww-2n0f-y846-oc55n36542p3 ANSI-Medicaid [id number] ANSI-Commercial 3n259z4f-0c23-5c9l-o3f4-6uo8s9857440 7j172b6p-4q21-5g2r-[id number] ANSI-Medicaid [id number] ANSI-[facility] [id number]-[id number]-[id number] [id number]-t554-90b9-z17k-k46k644d72p4 ANSI-Commercial sv10t419-0904-6175-tn4e-6jrj6whba9c4 qv54q108-5474-8269-gj8w-1aau9vcob7v[address] [facility] [id number]-[id number]-[id number] ANSI-Medicaid [id number] ANSI-Medicaid [id number] 3g3q1z58-94yy-9zj3-6s23-[id number] ANSI-Medicaid [id number] ANSI-Medicaid [id number] ANSI-Commercial 1d34x45c-5z31-691k-eqg8-x80w6qz675b9 7n19i68v-7n47-494z-ona4-i10l0ho975j1 [facility] svqd60e8-y9l4-9lhi-a05d-[id number] rcgk80s5-d0x4-2vzp-k24a-962093s4yc68 [facility]-Medicaid [id number] ANSI-Commercial j10ya201-ks50-561w-12y2-1945l1r2q50s h23wz527-kr28-110t-25m6-7440x0s1j05c ANSI-Medicaid [id number]-[id number] ANSI-Commercial 1998f65u-jpi4-10f7-j803-l6142651i76i 4190z30r-wkc7-54v7-w026-k0880781j46e ANSI-Medicaid [id number] ANSI-Commercial fbeq399r-s66g-9o58-4576-3474s3da640r qmjt992u-u58t-9d65-7780-8685o1wa803z ANSI-Commercial 2k764379-8tv0-1613-e69l-59t92yn8nf0b 9m781847-3gf6-9928-s60u-88l99we9jb0q ANSI-Medicaid [id number] 3tq18r8o-1fjn-8269-5usb-[id number] ANSI-Medicaid [id number] ANSI-Commercial 3j792946-9587-5417-gxoy-7a1r9i9jx7cy 2g536015-1758-6844-ainu-2m4g8i9za1zl ANSI-Medicaid [id number]-mk0i-[id number] ANSI-Commercial 761vdv6u-748h-41j7-u925-501uh3zs17m5 875lpf7w-392l-97i2-w977-208gs6cf50m3 ANSI-Medicaid [id number] ko6diney-td3h-0936-h097-3x9u946qj3oq ANSI-Commercial 601fs606-99d8-6ps1-jjil-5m85560q2317 875xy423-31l8-8ux5-jdpk-9d25280q0122 ANSI-Commercial hvc8xt53-hepe-9ol8-1666-32038p03h3kv mkd8xj32-xsre-1zr1-0994-95220p52y2jk ANSI-Medicaid [id number]-[id number] ANSI-Medicaid [id number] ANSI-Commercial 61d1l7yx-0apo-6h1c-ss2u-s697196286u4 75t6a3sn-2vhr-9v5f-rf3j-r140362458t8 ANSI-Medicaid [id number] j8vw7z09-0bl7-3ij5-urf4-ok68wb3io09h ANSI-Commercial hqa84824-6l0r-6xuf-1ch1-o1028jh9e90v akp81019-3u4i-8pqk-1yv8-u9201rp8g52a ANSI-Commercial 2iu82885-vr46-8r4e-3e26-998g02t3zni3 5sg02563-er60-5a0v-8s18-018b89m5phl5 ANSI-Commercial 2w23u3b6-4516-8jm5-aez6-1j9raws87ku9 2l11v0l6-1660-0sh9-ofn7-4t6nvpx98ph4 ANSI-Medicaid [id number] [facility] [id number] [facility] [id number] [facility] [id number]-[id number] ANSI-Commercial 8zk694xu-e7kt-4895-4d65-wgl57e17ybn8 0dy181rd-b1ny-4176-5w64-eer05c44nsl0 ANSI-Commercial 61y2r83f-362m-7kq9-ck48-49798tu42128 96o8n21t-132r-1nt2-sh40-63432gc53943 ANSI-Commercial 48u8y91p-098j-5564-720s-814xqf4zd151 90p7s27q-156h-7413-055p-132xhl7gm259 ANSI-Medicaid [id number]-5650-x75o-[id number] ANSI-Medicaid [id number] ANSI-Commercial 8uhab60r-w757-4t81-515o-te6tb98a955i 5ybfo77c-g998-8k05-680b-dh4vt70v614f ANSI-WeTag j72u3064-ov24-1527-on9v-w7649v67rb0x f59e7428-mx78-4056-tq8t-j7082r19by4y ANSI-Medicaid [id number]-6h6z-4uh4-6737-o5k2wts366cm [employer] 28637qu2-61cs-46j3-wf77-805up1220k35 78209rh5-25ux-41m2-uk93-328sd1248h10 ANSI-Medicaid [id number] nq46vj0y-v6ic-2933-f0p0-[id number] ANSI-Medicaid [id number]-8398-0jmv-1ei7-[id number] ANSI-Medicaid [id number] 1pb7d73p-[id number] ANSI-WeTag 5k9179g6-489i-022i-13s3-r8c7u63c4404 7m7854d5-097n-585m-12x4-o3h0m85b1437 [facility] y5b00466-0egl-65lc-25nc-158i49a879x0 p8d21669-8ujm-89ze-34hl-419x87t605k4 ANSI-Medicaid [id number] g2v7z3h3-1u24-35x0-[id number] ANSI-Medicaid [id number]-[id number] ANSI-Commercial 51w5yt95-yg9i-16hx-y0r9-12zsi07751eu 20b6rr80-jb0u-89wh-y7s1-17ltz00604st ANSI-Commercial zv8j7315-w560-37u9-ey4t-8n82k34316wb dd4v4857-x765-78k3-sx2d-4s88b48892uz ANSI-Medicaid [id number]-2242-4nmy-1b0d-8vo0bpv0ex12 ANSI-Medicaid [id number] ANSI-Commercial 4c33190e-7m72-9010-t6q6-e92k5594j69g 4t76207t-3a99-4966-r4j4-a91f8568u69g ANSI-Commercial 578tf3nj-ho0b-2p64-32y4-6p709o04v300 187tf7hz-yt3g-8h89-33f8-6v361k56h414 ANSI-Commercial 5i163387-pb9i-754i-x98j-j04jya5w0zpp 5z339345-tw7f-123k-e23c-j21ptf8y3yhi ANSI-Medicaid [id number]-38c8-984o-[id number] ANSI-Commercial 2kl5oqjp-04il-82q7-63x8-mfy95w1003n6 3sw5nkyh-32fl-65d9-97m5-kxp22n7690x2 ANSI-Medicaid [id number] 3d5u4w28-997b-20fs-0647-a3036lq0gf04 ANSI-Medicaid [id number] 1a20o5b3-89s8-567p-u8zd-[id number] ANSI-Medicaid [id number] 871r4j95-q206-5h63-05ap-179ft8tf3cmj ANSI-Commercial 8d5q2w66-bk57-2e40-a9wp-d76kq8msj4m5 3y0a2e94-tl93-9q48-f3ay-y06sp3tbr8o1 ANSI-Commercial 89u26675-7j0q-61v4-6x91-1hf231o9094b 52j38707-9q7v-16x7-9y72-0wk813m7450p ANSI-Medicaid [id number] 2aj05eq0-63x0-2g85-7014-jbg0b0h6jqy3 ANSI-Medicaid [id number]-10y4-51z6-1qnml5affy98 ANSI-Commercial 286918y3-03ne-12p4-88u8-1608em81jdes 303459g7-23eo-63i1-44a5-6922ct39tapz ANSI-Commercial 5i009no2-b799-5432-10h2-3r268045063d 6l552jx2-n866-4053-25a9-5g955038079o ANSI-Commercial vqm215g2-6345-5f05-7509-80kw9pxrr64d bhz506m3-4177-1v22-9296-41rg5qmaz65c ANSI-Medicaid [id number] h196e00l-5563-5o0a-p21w-0e987t4htlhf ANSI-Commercial x644w710-06ga-9d65-gz12-2r9a200urvb0 x784h630-59bi-8v18-ok58-2o4l946zanc4 ANSI-Medicaid [id number]-q352-h2e1f006vklk ANSI-Commercial t6n747l4-8v85-5082-sn49-44qfb08526v0 v9f751r5-6y57-3005-qt53-50bot97736w4 ANSI-Commercial 0743j56x-8qr6-2o88-b56x-4q6smb931915 9721c67k-5rl2-0o89-l07c-8t2mbc467566 [facility]-Medicaid [id number]-[id number] [facility] [id number] ANSI-Commercial 060u349z-5b2o-52t6-tt24-88m664w90416 126a473q-6w1g-00f8-qf17-17z207o24069 [facility]-Medicaid [id number] [facility]-Medicaid [id number] ANSI-Commercial v2g3ijba-3304-207a-m99r-1i55h72x5547 b0j9hbhz-5425-951q-i05u-0v01w46j1661 [facility]-Medicaid [id number]-[id number] [employer] m291n6s7-be48-99nf-0320-7w686h6h97y1 m232u6b6-cn52-88oe-0337-7m985i9u86v0 ANSI-Medicaid [id number]-[id number] [employer] xtur7985-6f0f-546p-99o9-sl855qp4t1h6 enmy3742-6j1v-327m-49b0-sg895vr0x8m3 [employer] 0652x04c-98m8-42ry-890p-739k28m97708 2685u03y-25m1-15cn-167f-564q89d19952 [employer] 16275w46-6rp0-9yte-6988-7364m2a4ol73 35263x82-1if1-8pcm-9569-2832i3r8ov57 [facility] [id number]-e38n-[id number] AN[facility]-Medicaid [id number] [facility] [id number] [employer] 258ik62a-39xp-586g-0749-f2bv35b9f3s9 062sb81y-64yj-175y-7563-d2sk88j7n4y3 [employer] r6272q45-0s0l-8d61-w371-kt90i6q88048 x9519v72-5i9c-9q43-k612-zc65y5i39684 [facility]-Medicaid [id number] [facility] [id number] ANSI-Commercial 3f69j81s-3z91-8kq8-63o3-me668drf4706 6j78b52x-8n33-7vs0-19a6-rc778otx5[address] [facility] 290v016l-pz22-3c95-o8f8-n2ci5371t697 693i158t-op90-4l90-g2o5-x6tl2642p169 [facility]-Medicaid [id number] [facility]-Medicaid [id number] [id number]-hmdo-0jl3-[id number] [facility]-Medicaid [id number] ANSI-Commercial a4441994-4370-1ww1-005l-6d2rm01h555q n4537204-7389-5mk7-559q-9w2hu59v749m ANSI-Commercial cil938qw-r23l-11i5-3605-8qm24omng5ni krv202li-d28m-13x3-5829-4gp24kvrc0by [facility]-Medicaid [id number] ANSI-Commercial 7y5yw055-249d-866q-d360-p9xl1kjp5fwm 2v6ct102-674t-324k-w083-u7lq9ysi4hwm AN[facility]-Medicaid [id number] [employer] 95x0703i-l643-0175-mrxa-3g06u85797v6 95k4519f-v785-7510-sojd-9a36k73683x5 [employer] xk24469b-1q5b-83jh-79u2-293531c3xy8t sg36515m-0n0w-91fi-52s5-591338q5uz1c [employer] yp08r332-tic5-13l8-4fu0-28i386yhw044 po02x169-gqn7-51g5-4pb4-67e829ejo086 [facility] [id number] [facility] [id number] [employer] 5tzs218i-jm5f-1u30-s669-43rroo6458n5 4amj207m-ux3v-2s76-v938-29qhcm6119i0 [facility] [id number] [facility] y66hv467-iw4z-603t-1834-4iuu0dm877yt y88il185-fy0f-155m-2721-8lpm4if001gi [facility] [id number]-mqrj-[id number] ANSI-Medicaid [id number]-3196-x4ve-[id number] ANSI-Medicaid [id number] ANSI-Commercial l0zgdat7-jq52-8680-0uu5-6391fi7p7t8i u7qcmlo0-zp37-5414-7yx4-9929mu5h8c2x ANSI-Commercial 32746ev6-0g1f-27u5-wb57-ae70392w2zg5 08279vj9-9t8l-41z8-tj98-fp98042e8ia2 [facility] 5x969990-p3v1-1u0f-5235-p541709784j1 2m220477-r7n1-0x2s-5901-e400972158r1 [facility] 48z45oa1-353w-935o-i6s8-78s6f113e4lw 26r92iw1-724f-542w-t1b2-18x9f368q2ok ANSI-Medicaid [id number] [facility] [id number] ANSI-Commercial u38l702s-6lh0-458k-0ot5-66ndj475107z h22g073b-3op0-499i-2ro8-27bum001603x ANSI-Medicaid [id number] ANSI-Commercial 014k46gu-9s9q-8l71-s362-76v6e1g9r66m 121h38xy-2k0k-3h93-k090-41p6b5e5d00q ANSI-Medicaid [id number] [facility]-Commercial 5268bg6n-q88w-77t6-2703-0117224hn2n9 2710nx7u-e76p-87b3-3037-7765206tj4e6 [facility]-Medicaid [id number] wc0gb4wx-q3zp-42i9-a0l5-[id number] [facility] 87178s8g-9g11-25fg-8805-9963o46892e4 57239n9p-6w88-73sj-4147-0097w43511j3 [facility]-Medicaid [id number]-qx2k-166j-coq0-o2n0m75j1n8s [facility] br8101js-1b57-2plk-2b42-ew22sr69zm6i li1150yh-1d13-8ubs-2w63-yx75ce17lw3u ANSI-Medicaid [id number] AN[facility]-Medicaid [id number]-a79x-[id number] [facility] 1lcn0a99-49q9-58xq-wv0h-0b0651t3vr71 1mkb8s95-67k8-03xz-qp9g-5g0242s6xo23 ANSI-Medicaid [id number] [facility] 7r186191-8h31-9w43-x290-ne1eej41c66g 5a061838-9r17-5j74-q843-ux3bvv59e21n [employer] g0d489m3-vu70-3pxi-b242-e72790g34795 v6e560r3-uq89-2qfq-g735-a26064e92845 [facility] [id number] g325fk95-8rt6-0u52-jll2-iw238nu0a7h2 ANSI-Medicaid [id number]-b1cm-8a990uy8ggce [employer] 7vk2144s-3n69-5qn2-p64e-3eb8218yn865 0ec7096y-9v06-6kz0-z57f-8do8930xo189 [facility] 165893i3-6pi5-1414-hh7z-n9629j94760s 440690p7-1ev0-2067-nu9c-i0245e70058i ANSI-Medicaid [id number]-[id number] ANSI-Medicaid [id number] [facility] [id number]-[id number] [employer] ssou37ra-7qw6-21fj-lnh0-s49e3z55aeg6 nvji10ki-1sh8-95uf-yzc8-j51x1n78dpw8 [employer] d5e58boe-eb32-2766-730y-3898730gm547 d9o05umm-fs65-0515-375r-2537911ng368 ANSI-Commercial 3w7901w6-m48v-1q19-595t-78zgt2z45931 4r6431x7-f90r-3f72-578e-94vwm1o73764 ANSI-Medicaid [id number] AN[facility]-Medicaid [id number] 98y4v7c1-230v-9857-m5pg-w7ft5p57ok5i ANSI-Commercial 818crsmi-k628-636ft323-715m-5d45-bsvl8t6k3r91 456nbqgk-y506-608sl083-178y-9x23-qqvj6h6r0f00 ANSI-Medicaid [id number]-7j15-[id number] ANSI-Commercial sf26878a-5881-7184-7434-e541e590yg15 ii82740h-6081-1620-9333-s814t532ux53 ANSI-Medicaid [id number] 56l0l0e7-0svl-08m9-2433-[id number] ANSI-Commercial pz54k456-29p8-6q13-876n-1403vl872uy0 el15o078-43u9-0a57-664l-5073nd198dy9 ANSI-Medicaid [id number]-[id number] ANSI-Commercial 2r0w0121-7xj0-5077-t975-11jk8t381563 5l4v2288-7qw2-9031-t159-93ee7y918453 ANSI-Medicaid [id number]-z68o-8ci7-0779-gv46e96bguu0 ANSI-Commercial 5m708r14-ump2-12v1-70v2-jz0ih7j23580 1h911l42-mfd8-48w9-00c4-lc5sk2q45199 ANSI-Medicaid [id number]-5c0w74um913s ANSI-Commercial 7um07c3x-0395-202k-u7f6-bh02y9cx782r 2aj06n9g-6275-740p-a1d3-cr94x5tg159y ANSI-Medicaid [id number]-cr77-8b30-rla5-u61u130gwlz5 ANSI-Commercial y773fugs-24t6-99d5-a6md-244155s7187h t906vygw-94x9-96y7-y3ot-402783l9709p ANSI-Medicaid [id number]-465s-8180-[id number] ANSI-Medicaid [id number]-33n7-3172-[id number] ANSI-Commercial 2678z0e6-j19k-0q17-5tyc-g83jw87mv8sm 9699n8i3-x80p-5g14-9szr-d54jm99mh6le ANSI-Commercial z6k66j06-o2mz-1pfu-5gxr-31778r8u0h99 q0h11r24-r3uv-1lfl-2ayg-91825f2g0i07 ANSI-Medicaid [id number]-[id number]-s42z-29xn-a33n-[id number] ANSI-Commercial pd9et6v0-d296-801z-w974-132c93uw4594 nr8aj6f0-s945-484g-q580-630m43ld2762 ANSI-Commercial x2495a85-0796-5054-zj51-9746xe2r51wf y8931v15-9983-9678-eg54-6312bi6k64pp ANSI-Medicaid [id number] ANSI-Medicaid [id number] ANSI-Medicaid [id number] ANSI-Commercial [id number] ANSI-Commercial [id number]-[id number] ANSI-Commercial [id number] ANSI-Medicaid [id number] ANSI-Commercial [id number]-[id number]-[id number] [facility]-Medicaid [id number] ANS-Commercial [id number]-[id number] [id number] [facility]-Medicaid [id number] ANSI-Medicaid [id number] ANS-[facility] [id number] [facility]-Commercial [id number] ANSI-Medicaid [id number] [facility]-Medicaid [id number] ANSI-Commercial [id number] [facility]-Medicaid [id number] ANSI-Medicaid [id number] ANSI-Commercial [id number] ANSI-Commercial [id number]-[id number] ANSI-Commercial [id number]-[id number] ANSI-Commercial [id number] ANSI-Medicaid [id number] ANSI-Medicaid [id number] ANSI-Medicaid [id number] ANSI-Commercial [id number] ANSI-Commercial [id number]-[id number] [id number] ANSI-Medicaid [id number] ANSI-Medicaid [id number] ANSI-Commercial [id number] ANSI-Commercial [id number]-[id number] [facility]-Medicaid [id number] [facility] [id number] ANSI-Commercial [id number]-w3ip-471q-[id number]-a7uc-[id number] [facility] [id number] ANSI-Commercial [id number] ANSI-Commercial [id number] ANSI-Medicaid [id number] ANSI-Commercial [id number] [facility] [id number] ANSI-Medicaid [id number] ANSI-Commercial [id number] ANSI-[employer] [id number]-[id number] [id number] ANSI-Medicaid [id number] ANSI-Commercial [id number]-[id number] ANSI-Commercial [id number] [facility] [id number] [facility] [id number] [facility]-Medicaid [id number] [facility] [id number] [facility]-Medicaid [id number] Problems, Conditions, and Diagnoses Code Display Name Description Problem Type Effective Dates Data Source(s) I89.0 677674742 Lymphedema Problem 09/10/2020 12:00:00 AM ES T eCW1 (Formerly [facility]) M81.0 74484837 Age-related osteoporosis without current pathological fracture Problem 07/09/2020 12:00:00 AM EDT eCW1 (Critical access hospital) 323684662 Chronic diastolic heart failure Chronic diastoli c heart failure Problem 04/02/2020 12:00:00 AM EDT [facility] ([facility] 143589477 Edema Edema Problem 04/02/2020 12:00:00 AM ED T [facility] ([facility]) [id number] Electrocardiogram abnormal Electrocardiogram abnormal Problem 04/02/2020 12:00:00 AM EDT [facility] ([facility]) 863951368 Dietary management surveillance Dietary manageme nt surveillance Problem 04/02/2020 12:00:00 AM EDT [facility] ([facility]) 307734927 Paroxysmal atrial fibrillation Paroxysmal atrial fibri llation Problem 04/02/2020 12:00:00 AM EDT [facility] ([facility]) I50.32 Chronic diastolic heart failure Chronic diastolic hear t failure Problem 12/07/2019 12:00:00 AM EDT eCW1 (Formerly [facility]) J31.0 66811865 Chronic rhinitis Problem 12/07/2019 12:00:00 AM EDT eCW1 ([facility]ly [facility]) J31.0 13702029 Chronic rhinitis Problem 12/07/2019 12:00:00 AM EDT eCW1 ([facility]ly [facility]) I50.32 Chronic diastolic heart failure Chronic diastolic hear t failure Problem 12/07/2019 12:00:00 AM EDT eCW1 (Formerly [facility]) J96.11 905634084 Chronic respiratory failure with hypoxia Problem 09/23/2019 12:00:00 AM EST eCW1 (Formerly [facility]) D73.1 56668295 Hypersplenism Problem 09/23/2019 12:00:00 AM EST eCW1 ([facility]ly [facility]) D61.818 188596717 Pancytopenia Problem 09/23/2019 12:00:00 AM EST eCW1 ([facility]ly [facility]) I48.91 96603931 Atrial fibrillation, unspecified type Pro blem 09/23/2019 12:00:00 AM EST eCW1 ([facility]ly [facility]) Z87.01 142464365 Hx of bacterial pneumonia Problem 09/23/2019 12:00:00 AM EST eCW1 ([facility]ly [facility]) Z87.19 419901994 H/O: UGI bleed Problem 09/23/2019 12:00:00 A M EST eCW1 ([facility]ly [facility]) J96.11 063809353 Chronic respiratory failure with hypoxia Problem 09/23/2019 12:00:00 AM EST eCW1 ([facility]) D73.1 17872652 Hypersplenism Problem 09/23/2019 12:00:00 AM EST eCW1 ([facility]) D61.818 899742726 Pancytopenia Problem 09/23/2019 12:00:00 AM EST eCW1 ([facility]) I48.91 34036585 Atrial fibrillation, unspecified type Pro blem 09/23/2019 12:00:00 AM EST eCW1 ([facility]) Z87.01 893686600 Hx of bacterial pneumonia Problem 09/23/2019 12:00:00 AM EST eCW1 ([facility]ly [facility]) Z87.19 064993212 H/O: UGI bleed Problem 09/23/2019 12:00:00 A M EST eCW1 ([facility]ly [facility]) Surgeries/Procedures Procedure Description Date Indications Data Source(s) Immunization: Flublok Quadrivalent (18 years & older) 0.5mL IM (Influenza) 07/09/2020 12:00:00 AM EDT eCW1 (Critical access hospital) ECG ROUTINE ECG W/LEAST 12 LDS W/I&R 04/02/2020 12:00: 00 AM EDT [facility] ([facility]) Results ID Date Data Source Basic Metabolic Profile (BMP) 10/15/2020 12:00:00 AM EST eCW 1 (Formerly [facility]) Name Value Range Interpretation Code Description Data Skyla rce(s) Supporting Document(s) 15 7-18 BLOOD UREA NITROGEN eCW1 ([facility]) 0.72 0.55-1.30 CREATININE FOR GFR eCW1 ([facility]) 91 70-100 GLUCOSE, FASTING eCW1 ([facility]) > 60.0 >45 GLOMERULAR FILTRATION RATE eCW 1 ([facility]ly [facility]) 111 98-107 CHLORIDE LEVEL eCW1 ([facility]ly [facility]) 145 136-145 SODIUM LEVEL eCW1 ([facility]) 4.4 3.5-5.1 POTASSIUM SERUM eCW1 ([facility]) 28 21-32 CARBON DIOXIDE LEVEL eCW1 ([facility]ly [facility]) 9.0 8.8-10.2 CALCIUM LEVEL eCW1 ([facility]ly [facility]) ID Date Data Source CBC with Differential 10/15/2020 12:00:00 AM EST eCW1 ([facility]) Name Value Range Interpretation Code Description Data Skyla rce(s) Supporting Document(s) 3.24 4.00-5.40 RED BLOOD COUNT eCW1 ([facility]) 3.1 4.0-10.0 WHITE BLOOD COUNT eCW1 ([facility]) 34.6 36.0-47.0 HEMATOCRIT eCW1 ([facility]) 31.8 27.0-33.0 MEAN CORPUSCULAR HEMOGLOB IN eCW1 ([facility]) 106.8 80.0-96.0 MEAN CORPUSCULAR VOLUME e CW1 ([facility]ly [facility]) 10.3 12.0-15.5 HEMOGLOBIN eCW1 ([facility]) 19.3 11.5-14.5 RED CELL DISTRIBUTION WID TH eCW1 ([facility]) 64.9 36.0-66.0 NEUTROPHILS % eCW1 ([facility]) 29.8 32.0-36.5 MEAN CORPUSCULAR HGB CONC eCW1 ([facility]) 48 150-450 PLATELET COUNT, AUTOMATED eCW1 ([facility]) 9.6 0.0-3.0 EOS % eCW1 ([facility]) 0.3 0.0-1.0 BASO % eCW1 ([facility]) 18.5 24.0-44.0 LYMPH % eCW1 ([facility]) 6.4 0.0-5.0 MONO % eCW1 ([facility]) 0.3 0.0-0.5 EOS # eCW1 ([facility]) 2.0 1.5-8.5 NEUTROPHILS # eCW1 ([facility]) 0.6 1.5-5.0 LYMPH # eCW1 ([facility]) 0.2 0.0-0.8 MONO # eCW1 ([facility]) 0.0 0.0-0.2 BASO # eCW1 ([facility]) ID Date Data Source [id number] 10/01/2020 10:21:00 PM EST [facility] Name Value Range Interpretation Code Description Data Skyla rce(s) Supporting Document(s) SARS coronavirus 2 RNA [Presence] in Res piratory specimen by CHARLES with probe detection NEGATIVE [facility] This lab was ordered by [facility] a nd reported by [facility]. ID Date Data Source [id number] 10/01/2020 01:17:00 PM EST [facility] ([facility]) Name Value Range Interpretation Code Description Data Skyla rce(s) Supporting Document(s) White Blood Count 1.9 4.0-10.0 [facility] ([facility]) Platelets 43 150-450 [facility] ([facility]) Red Blood Count 3.09 4.00-5.40 [facility] ([facility]) Hemoglobin 9.7 [facility] ([facility]) Hematocrit 31.7 [facility] ([facility]) ID Date Data Source [id number] 10/01/2020 01:17:00 PM EST [facility] ([facility]) Name Value Range Interpretation Code Description Data Skyla rce(s) Supporting Document(s) Calcium [Mass/volume] in Serum or Plasma 8.9 [facility] ([facility]) Sodium 142 [facility] ([facility]) Potassium [Moles/volume] in Serum or Plasma 3.8 [facility] ([facility]) Chloride [Moles/volume] in Serum or Plasma 110 [facility] ([facility]) Carbon dioxide, total [Moles/volume] in Serum or Plasma 28 [facility] ([facility]) Glucose 95 70-100 [facility] ([facility]) Creatinine 0.85 0.55-1.30 [facility] ([facility]) Blood Urea Nitrogen 18 7-18 [facility] ([facility]) Glomerular filtration rate/1.73 sq M.pre dicted [Volume Rate/Area] in Serum or Plasma by Creatinine-based formula (MDRD) Laboratory test result [facility] ([facility]iology [facility]) ID Date Data Source [id number] 09/25/2020 12:54:00 PM EST [facility] Name Value Range Interpretation Code Description Data Skyla rce(s) Supporting Document(s) Calcium [Mass/volume] in Serum or Plasma 8.6 [facility] ([facility]) Sodium 141 [facility] ([facility]) Chloride [Moles/volume] in Serum or Plasma 107 [facility] ([facility]) Carbon dioxide, total [Moles/volume] in Serum or Plasma 31 [facility] ([facility]) Potassium [Moles/volume] in Serum or Plasma 4.1 [facility] ([facility]) Glucose 83 70-100 [facility] ([facility]) Glomerular filtration rate/1.73 sq M.pre dicted [Volume Rate/Area] in Serum or Plasma by Creatinine-based formula (MDRD) Laboratory test result [facility] ([facility]) Creatinine 0.69 0.55-1.30 [facility] ([facility]) Blood Urea Nitrogen 19 7-18 [facility] ([facility]) ID Date Data Source [id number] 09/25/2020 12:54:00 PM EST [facility] ([facility]) Name Value Range Interpretation Code Description Data Skyla rce(s) Supporting Document(s) Troponin Laboratory test result [facility] ([facility]) Natriuretic peptide.B prohormone N-Terminal [Mass/volu me] in Serum or Plasma 95 [facility] ([facility]) ID Date Data Source [id number] 09/25/2020 12:54:00 PM EST [facility] Name Value Range Interpretation Code Description Data Skyla rce(s) Supporting Document(s) White Blood Count 1.7 4.0-10.0 [facility] ([facility]) Red Blood Count 3.03 4.00-5.40 [facility] ([facility]) Platelets 36 150-450 [facility] ([facility]) Hemoglobin 9.2 [facility] ([facility]iology [facility]) Hematocrit 31.9 [facility] ([facility]iology [facility]) ID Date Data Source [id number] 09/19/2020 10:41:00 PM EST [facility] Name Value Range Interpretation Code Description Data Skyla rce(s) Supporting Document(s) SARS coronavirus 2 RNA [Presence] in Res piratory specimen by CHARLES with probe detection NEGATIVE [facility] This lab was ordered by [facility] a nd reported by [facility]. ID Date Data Source LACTIC ACID LEVEL, LACTATE 09/10/2020 12:00:00 AM EST eCW1 ( [facility]) Name Value Range Interpretation Code Description Data Skyla rce(s) Supporting Document(s) LACTIC ACID LEVEL, LACTATE eCW 1 ([facility]ly [facility]) ID Date Data Source C REACTIVE PROTEIN QUANTITATIV (At [facility]) 09/10/2020 12:00 :00 AM EST eCW1 ([facility]) Name Value Range Interpretation Code Description Data Skyla rce(s) Supporting Document(s) 0.66 0.00-0.30 C REACTIVE PROTEIN QUANTI TATIV eCW1 ([facility]ly [facility]) ID Date Data Source Comprehensive Metabolic Profile (CMP) 09/10/2020 12:00:00 AM EST eCW1 ([facility]) Name Value Range Interpretation Code Description Data Skyla rce(s) Supporting Document(s) 82 70-100 GLUCOSE, FASTING eCW1 ([facility]) 14 7-18 BLOOD UREA NITROGEN eCW1 ([facility]) 0.78 0.55-1.30 CREATININE FOR GFR eCW1 ([facility]) 4.1 3.5-5.1 POTASSIUM SERUM eCW1 ([facility]) 139 136-145 SODIUM LEVEL eCW1 ([facility]) > 60.0 >45 GLOMERULAR FILTRATION RATE eCW 1 ([facility]) 108 98-107 CHLORIDE LEVEL eCW1 ([facility]) 9.0 8.8-10.2 CALCIUM LEVEL eCW1 ([facility]) 28 21-32 CARBON DIOXIDE LEVEL eCW1 ([facility]) 113 45-117 ALKALINE PHOSPHATASE eCW1 ([facility]) 18 12-78 ALT/SGPT eCW1 ([facility]) 31 7-37 AST/SGOT eCW1 ([facility]) 3.2 3.2-5.2 ALBUMIN eCW1 ([facility]) 5.9 6.4-8.2 TOTAL PROTEIN eCW1 ([facility]) 1.0 0.2-1.0 BILIRUBIN,TOTAL eCW1 ([facility]) 1.2 1.2-2.2 ALBUMIN/GLOBULIN RATIO eCW1 ([facility]) ID Date Data Source [id number] 03/21/2020 02:19:00 PM EDT [facility] ([facility]) Name Value Range Interpretation Code Description Data Skyla rce(s) Supporting Document(s) Calcium [Mass/volume] in Serum or Plasma 9.0 [facility] ([facility]) Albumin [Mass/volume] in Serum or Plasma 3.0 [facility] ([facility]) Alanine aminotransferase [Enzymatic activity/volume] in Serum or Pl asma 21 [facility] ([facility]) Chloride [Moles/volume] in Serum or Plasma 113 [facility] ([facility]) Carbon dioxide, total [Moles/volume] in Serum or Plasma 25 [facility] ([facility]) Potassium [Moles/volume] in Serum or Plasma 3.8 [facility] ([facility]) Alkaline phosphatase [Enzymatic activity/volume] in Serum or Plasma 1 02 [facility] ([facility]) Protein [Mass/volume] in Serum or Plasma 5.8 [facility] ([facility]) Sodium 143 [facility] ([facility] Aspartate aminotransferase [Enzymatic activity/volume] in Serum or Plasma 27 [facility] ([facility]) Creatinine For GFR 0.72 [facility] ([facility]) Urea nitrogen [Mass/volume] in Serum or Plasma 18 [facility] ([facility]) Glucose 97 70-100 [facility] ([facility]) ID Date Data Source [id number] 03/21/2020 02:19:00 PM EDT [facility] ([facility]) Name Value Range Interpretation Code Description Data Skyla rce(s) Supporting Document(s) White Blood Count 3.7 4.0-10.0 [facility] ([facility]) Red Blood Count 3.96 4.00-5.40 [facility] ([facility]) Hemoglobin 13.1 [facility] ([facility]) Platelets 61 150-450 [facility] ([facility]) Hematocrit 39.9 [facility] ([facility]) ID Date Data Source [id number] 02/13/2020 09:38:00 AM EDT [facility] ([facility], ) Name Value Range Interpretation Code Description Data Skyla rce(s) Supporting Document(s) Hepatitis A virus IgG Ab [Units/volume] in Serum Laboratory test result Abnormal (applies to non-numeric results) [facility]) Performed at: RN - [facility] [address] [id number] Miter Sawyer: Selene Garrido MD, Phone: [phone] Hepatitis B virus surface Ab [Presence] in Serum by [facility] Laboratory test result Normal (applies to non-numeric results) [facility] ([facility]) Ozgmy-7-Dyfaveranou [Mass/volume] in Serum or Plasma 4.4 ng/mL Normal (applies to non-numeric results) [facility]) THE AFP ASSAY IS PERFORMED ON THE [employer] BY CHEMILUMINESCENCE AND SHOULD NOT BE COMPARED [...] % 0.0-9.59 Normal (applies to non-numeric results) [facility]) ID Date Data Source [id number] 02/13/2020 09:38:00 AM EDT [facility]) Name Value Range Interpretation Code Description Data Skyla rce(s) Supporting Document(s) Creatinine For GFR 0.74 mg/dL 0.55-1.30 Normal (applies to non -numeric results) [facility] ([facility]) Glomerular Filtration Rate Laboratory test result Normal (applies to non- numeric results) [facility]) <content>Units are mL/min/1.73 m2</content>
<content></content>
<content>Chronic Kidney Disease Staging per NKF:</content>
<content></content>
<content>Stage I & II GFR >=60 Normal to Mildly Decreased</content>
<content>Stage III GFR 30- 59 Moderately Decreased</content>
<content>Stage IV GFR 15-29 Severely Decreased</content>
<content>Stage V GFR <15 Very Little GFR Left</content>
<content>ESRD GFR <15 on ULTRASOUND TECH</content>
<content></content> ID Date Data Source [id number] 02/13/2020 09:38:00 AM EDT [facility]) Name Value Range Interpretation Code Description Data Skyla rce(s) Supporting Document(s) Urea nitrogen [Mass/volume] in Serum or Plasma 17 mg/dL 7 -18 Normal (applies to non-numeric results) [facility]) ID Date Data Source [id number] 02/13/2020 09:38:00 AM EDT [facility]) Name Value Range Interpretation Code Description Data Skyla rce(s) Supporting Document(s) Inr 1.22 Normal (applies to non-numeric resul ts) [facility]) THERAPUTIC HUMAN INR VALUES INDICATIONS NORMAL RANGES PROPHYLAXIS/TREATMENT OF: VENOUS THROMBOSIS 2.0-3.0 PULMONARY EMBOLISM 2.0-3.0 PREVENTION OF SYSTEMIC EMBOLISM FROM: TISSUE HEART VALVES 2.0-3.0 ACUTE MYOCARDIAL INFARCTION 2.0-3.0 VALVULAR HEART DISEASE 2.0-3.0 ATRIAL FIBRILLATION 2.0-3.0 MECHANICAL VALVES(HIGH RISK) 2.5-3.5 RECURRENT MYOCARDIAL INFARCTION 2.5-3.5 Prothrombin Time 15.1 s 11.8-14.0 Above high normal M [facility]) Partial Thromboplastin Time 30.4 s 25.0-38.4 Norm al (applies to non-numeric results) [facility]) ID Date Data Source [id number] 02/13/2020 09:38:00 AM EDT [facility]) Name Value Range Interpretation Code Description Data Skyla rce(s) Supporting Document(s) Total Iron Binding Capacity 345 ug/dL 250-450 Norm al (applies to non-numeric results) [facility]) Iron (Fe) 127 ug/dL 50-170 Normal (applies to non-numeric resul ts) [facility]) Percent Saturation 36.8 % 13.2-45.0 Normal (applies to non-numer ic results) [facility] ([facility]) ID Date Data Source [id number] 02/13/2020 09:38:00 AM EDT [facility] [facility] ([facility]) Name Value Range Interpretation Code Description Data Skyla rce(s) Supporting Document(s) Ferritin [Mass/volume] in Serum or Plasma 19 ng/mL 8-252 Normal (applies to non- numeric results) [facility] ([facility]) ID Date Data Source [id number] 02/13/2020 09:38:00 AM EDT [facility] ([facility]) Name Value Range Interpretation Code Description Data Skyla rce(s) Supporting Document(s) Red Blood Count 4.17 10 4.00-5.40 Normal (applies to non-numeric results) [facility] ([facility]) White Blood Count 3.4 10 4.0-10.0 Below [facility] Hemoglobin 13.2 g/dL 12.0-15.5 Normal (applies to non-numeric resul ts) [facility] ([facility]) Mean Corpuscular Hemoglobin 31.7 pg 27.0-33.0 Norm al (applies to non-numeric results) [facility] ([facility]) Hematocrit 41.2 % 36.0-47.0 Normal (applies to non-numeric resul ts) [facility]) Mean Corpuscular Volume 98.8 fl 80.0-96.0 Above high normal [facility] ([facility]) Platelet Count, Automated 63 10 150-450 Below low normal [facility] ([facility]) Mean Corpuscular HGB Conc 32.0 g/dL 32.0-36.5 Normal (applies to non-numeric results) [facility] ([facility]) Red Cell Distribution Width 14.6 % 11.5-14.5 Above high normal [facility] ([facility]) Eos % 5.7 % 0.0-3.0 Above high normal [facility] ([facility]) [place] % 6.5 % 0.0-5.0 Above high normal [facility] ([facility] ) Lymph % 20.2 % 24.0-44.0 Below low normal [facility] ( [facility]) Neutrophils % 67.0 % 36.0-66.0 Above high normal [facility] ([facility]) Nucleated Red Blood Cell % 0.0 % 0-0 Normal (applies to n on-numeric results) [facility] ([facility]) Immature Granulocyte % 0.3 % 0-3.0 Normal (applies to non-n umeric results) [facility] ([facility]) Baso % 0.3 % 0.0-1.0 Normal (applies to non-numeric resul ts) [facility] ([facility]) Lymph # 0.7 10 1.5-5.0 Below low normal [facility] Eos # 0.2 10 0.0-0.5 Normal (applies to non-numeric resul ts) [facility] ([facility]) [place] # 0.2 10 0.0-0.8 Normal (applies to non-numeric resul ts) [facility] ([facility]) Neutrophils # 2.3 10 1.5-8.5 Normal (applies to non-numeric re sults) [facility] ([facility]) Baso # 0.0 10 0.0-0.2 Normal (applies to non-numeric resul ts) [facility] ([facility]) ID Date Data Source [id number] 10/10/2019 02:04:00 PM EST [facility] ([facility]) Name Value Range Interpretation Code Description Data Skyla rce(s) Supporting Document(s) [id number] [Mass/volume] in Serum or Plasma 4.4 ng/mL Normal (applies to non-numeric results) [facility] ([facility]) THE AFP ASSAY IS PERFORMED ON THE [employer] BY CHEMILUMINESCENCE AND SHOULD NOT BE COMPARED [...] % 0.0-9.59 Normal (applies to non-numeric results) [facility] ([facility]) Blood group antibodies identified in Serum or Plasma Laboratory test result Normal (applies to non-numeric results) [facility]) ID Date Data Source [id number] 10/10/2019 02:04:00 PM EST [facility]) Name Value Range Interpretation Code Description Data Skyla rce(s) Supporting Document(s) Prothrombin Time 14.6 s 11.8-14.0 Above high [facility] Partial Thromboplastin Time 29.7 s 25.0-38.4 Norm al (applies to non-numeric results) [facility] ([facility]) Inr 1.17 Normal (applies to non-numeric resul ts) [facility]) THERAPUTIC HUMAN INR VALUES INDICATIONS NORMAL RANGES PROPHYLAXIS/TREATMENT OF: VENOUS THROMBOSIS 2.0-3.0 PULMONARY EMBOLISM 2.0-3.0 PREVENTION OF SYSTEMIC EMBOLISM FROM: TISSUE HEART VALVES 2.0-3.0 ACUTE MYOCARDIAL INFARCTION 2.0-3.0 VALVULAR HEART DISEASE 2.0-3.0 ATRIAL FIBRILLATION 2.0-3.0 MECHANICAL VALVES(HIGH RISK) 2.5-3.5 RECURRENT MYOCARDIAL INFARCTION 2.5-3.5 ID Date Data Source [id number] 10/10/2019 02:04:00 PM EST [facility]) Name Value Range Interpretation Code Description Data Skyla rce(s) Supporting Document(s) Blood Type Laboratory test result Normal (applies to non-n umeric results) [facility]) Blood group antibody screen [Presence] in Serum or Prasad sma Laboratory test result Normal (applies to non-numeric results) [facility]) ID Date Data Source [id number] 10/10/2019 02:04:00 PM EST [facility]) Name Value Range Interpretation Code Description Data Skyla rce(s) Supporting Document(s) Glomerular Filtration Rate Laboratory test result Normal (applies to non- numeric results) [facility]) <content>Units are mL/min/1.73 m2</content>
<content></content>
<content>Chronic Kidney Disease Staging per NKF:</content>
<content></content>
<content>Stage I & II GFR >=60 Normal to Mildly Decreased</content>
<content>Stage III GFR 30- 59 Moderately Decreased</content>
<content>Stage IV GFR 15-29 Severely Decreased</content>
<content>Stage V GFR <15 Very Little GFR Left</content>
<content>ESRD GFR <15 on ULTRASOUND TECH</content>
<content></content> Creatinine For GFR 0.83 mg/dL 0.55-1.30 Normal (applies to non -numeric results) [facility]) ID Date Data Source [id number] 10/10/2019 02:04:00 PM EST [facility] ([facility]) Name Value Range Interpretation Code Description Data Skyla rce(s) Supporting Document(s) Urea nitrogen [Mass/volume] in Serum or Plasma 17 mg/dL 7 -18 Normal (applies to non-numeric results) [facility] ([facility]) ID Date Data Source [id number] 10/10/2019 02:04:00 PM EST [facility]) Name Value Range Interpretation Code Description Data Skyla rce(s) Supporting Document(s) White Blood Count 4.0 10 4.0-10.0 Normal (applies to non-numeri c results) [facility] ([facility]) Red Blood Count 4.00 10 4.00-5.40 Normal (applies to non-numeric results) [facility] ([facility]) Mean Corpuscular Volume 90.3 fl 80.0-96.0 Normal ( applies to non-numeric results) [facility] ([facility]) Hemoglobin 10.1 g/dL 12.0-15.5 Below low normal [facility] ( [facility]) Hematocrit 36.1 % 36.0-47.0 Normal (applies to non-numeric resul ts) [facility] ([facility]) Red Cell Distribution Width 18.3 % 11.5-14.5 Above high normal [facility] ([facility]) Mean Corpuscular Hemoglobin 25.3 pg 27.0-33.0 Below low normal [facility] ([facility]) Mean Corpuscular HGB Conc 28.0 g/dL 32.0-36.5 Below low normal [facility] ([facility]) Platelet Count, Automated 85 10 150-450 Below low normal [facility] ([facility]) Lymph % 26.1 % 24.0-44.0 Normal (applies to non-numeric resul ts) [facility] ([facility]) Neutrophils % 63.6 % 36.0-66.0 Normal (applies to non-numeric re sults) [facility] ([facility]) [place] % 5.5 % 0.0-5.0 Above high normal [facility] ([facility]) Baso % 0.5 % 0.0-1.0 Normal (applies to non-numeric resul ts) [facility] ([facility]) Nucleated Red Blood Cell % 0.0 % 0-0 Normal (applies to n on-numeric results) [facility] ([facility]) Eos % 4.0 % 0.0-3.0 Above high normal [facility] ([facility]) Immature Granulocyte % 0.3 % 0-3.0 Normal (applies to non-n umeric results) [facility] ([facility]) Neutrophils # 2.5 10 1.5-8.5 Normal (applies to non-numeric re sults) [facility] ([facility]) [place] # 0.2 10 0.0-0.8 Normal (applies to non-numeric resul ts) [facility] ([facility]) Lymph # 1.0 10 1.5-5.0 Below low normal [facility] ( [facility]) Baso # 0.0 10 0.0-0.2 Normal (applies to non-numeric resul ts) [facility] ([facility]) Eos # 0.2 10 0.0-0.5 Normal (applies to non-numeric resul ts) [facility] ([facility]) Procedure Social History Code Duration Value Status Description Data Source(s ) Smoking 10/15/2020 12:00:00 AM EST Never Smoker completed Never S moker eCW1 ([facility]) Smoking 10/15/2020 12:00:00 AM EST Never Smoker completed Never S moker eCW1 ([facility]) Smoking 10/15/2020 12:00:00 AM EST Never Smoker completed Never S moker eCW1 ([facility]) Smoking 10/15/2020 12:00:00 AM EST Never Smoker completed Never S moker eCW1 ([facility]) Smoking 09/10/2020 12:00:00 AM EST Never Smoker completed Never S moker eCW1 ([facility]) Smoking 09/10/2020 12:00:00 AM EST Never Smoker completed Never S moker eCW1 ([facility]) Smoking 09/10/2020 12:00:00 AM EST Never Smoker completed Never S moker eCW1 ([facility]) Smoking 09/10/2020 12:00:00 AM EST Never Smoker completed Never S moker eCW1 ([facility]) Smoking 09/10/2020 12:00:00 AM EST Never Smoker completed Never S moker eCW1 ([facility]) Smoking 09/10/2020 12:00:00 AM EST Never Smoker completed Never S moker eCW1 ([facility]) Smoking 08/21/2020 12:00:00 AM EST Never Smoker completed Never S moker eCW1 ([facility]) Smoking 08/21/2020 12:00:00 AM EST Never Smoker completed Never S moker eCW1 ([facility]) Smoking 08/21/2020 12:00:00 AM EST Never Smoker completed Never S moker eCW1 ([facility]) Smoking 08/21/2020 12:00:00 AM EST Never Smoker completed Never S moker eCW1 ([facility]) Smoking 07/09/2020 12:00:00 AM EDT Never Smoker completed Never S moker eCW1 ([facility]) Smoking 07/09/2020 12:00:00 AM EDT Never Smoker completed Never S moker eCW1 ([facility]) Smoking 07/09/2020 12:00:00 AM EDT Never Smoker completed Never S moker eCW1 ([facility]) Smoking 07/09/2020 12:00:00 AM EDT Never Smoker completed Never S moker eCW1 ([facility]) Smoking 04/02/2020 12:00:00 AM EDT Patient has never smoked co mpleted Patient has never smoked [facility] ([facility]) Smoking 03/21/2020 12:00:00 AM EDT Never Smoker completed Never S moker eCW1 ([facility]) Smoking 03/21/2020 12:00:00 AM EDT Never Smoker completed Never S moker eCW1 ([facility]) Smoking 03/21/2020 12:00:00 AM EDT Never Smoker completed Never S moker eCW1 ([facility]) Smoking 02/15/2020 12:00:00 AM EDT Never Smoker completed Never S moker eCW1 ([facility]) Smoking 02/15/2020 12:00:00 AM EDT Never Smoker completed Never S moker eCW1 ([facility]) Vital Signs ID Date Data Source UNK Name Value Range Interpretation Code Description Data Source(s) Diastolic blood pressure 64 mm[Hg] 64 mm[Hg] eCW1 ([facility]) Systolic blood pressure 110 mm[Hg] 110 mm[Hg] e CW1 ([facility]) Body temperature 96.8 [degF] 96.8 [degF] eCW1 ( [facility]) Respiratory rate 20 /min 20 /min eCW1 ([facility]) Heart rate 67 /min 67 /min eCW1 ([facility]) Body mass index (BMI) [Ratio] 64.19 kg/m2 64.19 kg/m2 eCW1 ([facility]) Body height 64 [in_i] 64 [in_i] eCW1 ([facility]) Body weight 374 [lb_av] 374 [lb_av] eCW1 ([facility]) Diastolic blood pressure 70 mm[Hg] 70 mm[Hg] eCW1 ([facility]) Systolic blood pressure 98 mm[Hg] 98 mm[Hg] e CW1 ([facility]) Body mass index (BMI) [Ratio] 64.53 kg/m2 64.53 kg/m2 eCW1 ([facility]) Body height 64 [in_i] 64 [in_i] eCW1 ([facility]) Body weight 376 [lb_av] 376 [lb_av] eCW1 ([facility]) Diastolic blood pressure 68 mm[Hg] 68 mm[Hg] eCW1 ([facility]) Systolic blood pressure 110 mm[Hg] 110 mm[Hg] e CW1 ([facility]) Body temperature 96.6 [degF] 96.6 [degF] eCW1 ( [facility]) Respiratory rate 20 /min 20 /min eCW1 ([facility] hospital) Heart rate 73 /min 73 /min eCW1 ([facility]) Body mass index (BMI) [Ratio] 64.53 kg/m2 64.53 kg/m2 eCW1 ([facility]) Body height 64 [in_i] 64 [in_i] eCW1 ([facility]) Body weight 376 [lb_av] 376 [lb_av] eCW1 ([facility]) Diastolic blood pressure 78 mm[Hg] 78 mm[Hg] eCW1 ([facility]) Systolic blood pressure 130 mm[Hg] 130 mm[Hg] e CW1 ([facility]) Body temperature 96.3 [degF] 96.3 [degF] eCW1 ( [facility]) Respiratory rate 20 /min 20 /min eCW1 ([facility] hospital) Heart rate 99 /min 99 /min eCW1 ([facility]) Body mass index (BMI) [Ratio] 62.82 kg/m2 62.82 kg/m2 eCW1 ([facility]) Body height 64 [in_i] 64 [in_i] eCW1 ([facility]) Body weight 366 [lb_av] 366 [lb_av] eCW1 ([facility]) Diastolic blood pressure 76 mm[Hg] 76 mm[Hg] eCW1 ([facility]) Systolic blood pressure 130 mm[Hg] 130 mm[Hg] e CW1 ([facility]) Body temperature 96.9 [degF] 96.9 [degF] eCW1 ( [facility]) Respiratory rate 20 /min 20 /min eCW1 ([facility] hospital) Heart rate 67 /min 67 /min eCW1 ([facility]) Body mass index (BMI) [Ratio] 61.10 kg/m2 61.10 kg/m2 eCW1 ([facility]) Body height 64 [in_i] 64 [in_i] eCW1 ([facility]) Body weight 356 [lb_av] 356 [lb_av] eCW1 ([facility]) Body weight 149.688 kg 149.688 kg [facility] ([facility], ) Body mass index (BMI) [Ratio] 56.6 kg/m2 56.6 k g/m2 [facility] ([facility], ) Body weight 330.00 [lb_av] 330.00 [lb_av] [facility] ([facility], ) Body height 64 [in_i] 64 [in_i] [facility] ([facility], ) 5'4" Oxygen saturation in Arterial blood by Pulse oximetry 89 % 89 % [facility] ([facility], ) 96 2L Heart rate 60 /min 60 /min [facility] ([facility], ) Diastolic blood pressure 66 mm[Hg] 66 mm[Hg] [facility] ([facility], ) Systolic blood pressure 108 mm[Hg] 108 mm[Hg] [facility] ([facility], ) Diastolic blood pressure 68 mm[Hg] 68 mm[Hg] [facility] sitting, large cuff Systolic blood pressure 126 mm[Hg] 126 mm[Hg] [facility] sitting, large cuff Respiratory rate 16 /min 16 /min [facility] ( [facility]) Heart rate 72 /min 72 /min [facility] ([facility] Regular Body mass index (BMI) [Ratio] 56.6 kg/m2 56.6 k g/m2 [facility] ([facility]) Body height 64 [in_i] 64 [in_i] [facility] 5'4" Body weight 330.00 [lb_av] 330.00 [lb_av] [facility] ([facility]) Diastolic blood pressure 76 mm[Hg] 76 mm[Hg] eCW1 ([facility]) Systolic blood pressure 128 mm[Hg] 128 mm[Hg] e CW1 ([facility]) Body temperature 97.1 [degF] 97.1 [degF] eCW1 ( [facility]) Respiratory rate 20 /min 20 /min eCW1 ([facility] hospital) Heart rate 66 /min 66 /min eCW1 ([facility]) Body mass index (BMI) [Ratio] 60.76 kg/m2 60.76 kg/m2 eCW1 ([facility]) Body height 64 [in_i] 64 [in_i] eCW1 ([facility]) Body weight 354.0 [lb_av] 354.0 [lb_av] eCW1 ([facility]) Body weight 162.842 kg 162.842 kg [facility] ([facility], ) Body mass index (BMI) [Ratio] 61.6 kg/m2 61.6 k g/m2 [facility] ([facility], ) Body weight 359.00 [lb_av] 359.00 [lb_av] [facility] ([facility], ) Body height 64 [in_i] 64 [in_i] [facility] ([facility], ) 5'4" Diastolic blood pressure 74 mm[Hg] 74 mm[Hg] [facility] ([facility], ) Systolic blood pressure 132 mm[Hg] 132 mm[Hg] M [facility] ([facility], ) Diastolic blood pressure 70 mm[Hg] 70 mm[Hg] eCW1 ([facility]) Systolic blood pressure 136 mm[Hg] 136 mm[Hg] e CW1 ([facility]) Body temperature 96.8 [degF] 96.8 [degF] eCW1 ( [facility]) Respiratory rate 20 /min 20 /min eCW1 ([facility] hospital) Heart rate 75 /min 75 /min eCW1 ([facility]) Body mass index (BMI) [Ratio] 61.10 kg/m2 61.10 kg/m2 eCW1 ([facility]) Body height 64 [in_i] 64 [in_i] eCW1 ([facility]) Body weight 356 [lb_av] 356 [lb_av] eCW1 ([facility]) Diastolic blood pressure 72 mm[Hg] 72 mm[Hg] eCW1 ([facility]) Systolic blood pressure 132 mm[Hg] 132 mm[Hg] e CW1 ([facility]) Body temperature 96.5 [degF] 96.5 [degF] eCW1 ( [facility]) Respiratory rate 20 /min 20 /min eCW1 ([facility] hospital) Heart rate 70 /min 70 /min eCW1 ([facility]) Body mass index (BMI) [Ratio] 59.21 kg/m2 59.21 kg/m2 eCW1 ([facility]) Body height 64 [in_us] 64 [in_us] eCW1 ([facility]) Body weight Measured 345 [lb_av] 345 [lb_av] eC W1 ([facility]) Body weight 155.585 kg 155.585 kg [facility] ([facility], ) Body mass index (BMI) [Ratio] 58.9 kg/m2 58.9 k g/m2 [facility] ([facility], ) Body weight 343.00 [lb_av] 343.00 [lb_av] [facility] T ([facility], ) Body height 64 [in_i] 64 [in_i] [facility] ([facility], ) 5'4" Diastolic blood pressure 78 mm[Hg] 78 mm[Hg] [facility] Systolic blood pressure 126 mm[Hg] 126 mm[Hg] M [facility]ENT ([facility]) Body weight 148.327 kg 148.327 kg [facility] ([facility]) Body mass index (BMI) [Ratio] 56.1 kg/m2 56.1 k g/m2 [facility] ([facility]) Body weight 327.00 [lb_av] 327.00 [lb_av] [facility] ([facility]) Body height 64 [in_i] 64 [in_i] [facility] ([facility]) 5'4" Body temperature 96.8 [degF] 96.8 [degF] [facility] ([facility]) Diastolic blood pressure 76 mm[Hg] 76 mm[Hg] [facility] Systolic blood pressure 113 mm[Hg] 113 mm[facility]Hg] [facility] Diastolic blood pressure 74 mm[Hg] 74 mm[Hg] eCW1 ([facility]) Systolic blood pressure 136 mm[Hg] 136 mm[Hg] e CW1 ([facility]) Body temperature 98.2 [degF] 98.2 [degF] eCW1 ( [facility]) Respiratory rate 22 /min 22 /min eCW1 (Critical access hospital) Heart rate 71 /min 71 /min eCW1 ([facility]) Body mass index (BMI) [Ratio] 58.87 kg/m2 58.87 kg/m2 eCW1 ([facility]) Body height 64 [in_us] 64 [in_us] eCW1 ([facility]) Body weight Measured 343 [lb_av] 343 [lb_av] eC W1 ([facility]) Patient Treatment Plan of Care Planned Activity Planned Date Details Description Data Source (s) Cephalexin 500 MG Oral Capsule [Keflex] 09/10/2020 12:00:00 AM EST eCW1 ([facility]) Cephalexin 500 MG Oral Capsule [Keflex] 09/10/2020 12:00:00 AM EST eCW1 ([facility]) Cephalexin 500 MG Oral Capsule [Keflex] 09/10/2020 12:00:00 AM EST eCW1 ([facility]) Cephalexin 500 MG Oral Capsule [Keflex] 09/10/2020 12:00:00 AM EST eCW1 ([facility]) Cephalexin 500 MG Oral Capsule [Keflex] 09/10/2020 12:00:00 AM EST eCW1 ([facility]) apixaban 2.5 MG Oral Tablet [Eliquis] 08/12/2020 12:00:00 AM EST eCW1 ([facility]) apixaban 2.5 MG Oral Tablet [Eliquis] 08/12/2020 12:00:00 AM EST eCW1 ([facility]) apixaban 2.5 MG Oral Tablet [Eliquis] 08/12/2020 12:00:00 AM EST eCW1 ([facility]) apixaban 2.5 MG Oral Tablet [Eliquis] 08/12/2020 12:00:00 AM EST eCW1 ([facility]) apixaban 2.5 MG Oral Tablet [Eliquis] 08/12/2020 12:00:00 AM EST eCW1 ([facility]) apixaban 2.5 MG Oral Tablet [Eliquis] 08/12/2020 12:00:00 AM EST eCW1 ([facility]) Levofloxacin 750 MG Oral Tablet 07/09/2020 12:00:00 AM EDT eCW1 ([facility]) Levofloxacin 750 MG Oral Tablet 07/09/2020 12:00:00 AM EDT eCW1 ([facility]) gabapentin 800 MG Oral Tablet 02/19/2020 12:00:00 AM EDT eCW1 ([facility]) Bisoprolol Fumarate 5 MG Oral Tablet 02/19/2020 12:00:00 AM EDT eCW1 ([facility]) Fluticasone Propionate 50 MCG/ACT 12/07/2019 12:00:00 AM EDT eCW1 ([facility]) Fluticasone Propionate 50 MCG/ACT 12/07/2019 12:00:00 AM EDT eCW1 ([facility]) Spironolactone 25 MG Oral Tablet eCW1 ([facility]
--- OUTSIDE RECORDS SUMMARY | 2020-10-23 19:59 | CCD ---
Author Author [facility] Organization [facility] Address Unknown Phone Unavailable Care Team Providers Care Pad Cutter Name Role Phone Renetta Garsia PA Unavailable [...] Judi PA Unavailable Unavailable QUIROZ, H DEON DATA ENTRY SPECIALIST Unavailable Unavailable QUIROZ, H DEON DATA ENTRY SPECIALIST Unavailable Unavailable QUIROZ, H DEON DATA ENTRY SPECIALIST Unavailable Unavailable QUIROZ, H DEON DATA ENTRY SPECIALIST Unavailable Unavailable QUIROZ, H DEON DATA ENTRY SPECIALIST Unavailable Unavailable QUIROZ, H DEON DATA ENTRY SPECIALIST Unavailable Unavailable QUIROZ, H DEON DATA ENTRY SPECIALIST Unavailable Unavailable QUIROZ, H DEON DATA ENTRY SPECIALIST Unavailable Unavailable QUIROZ, H DEON DATA ENTRY SPECIALIST Unavailable Unavailable QUIROZ, H DEON DATA ENTRY SPECIALIST Unavailable Unavailable QUIROZ, H DEON DATA ENTRY SPECIALIST Unavailable Unavailable QUIROZ, H DEON DATA ENTRY SPECIALIST Unavailable Unavailable QUIROZ, H DEON DATA ENTRY SPECIALIST Unavailable Unavailable QUIROZ, H DEON DATA ENTRY SPECIALIST Unavailable Unavailable QUIROZ, H DEON DATA ENTRY SPECIALIST Unavailable Unavailable QUIROZ, H DEON DATA ENTRY SPECIALIST Unavailable Unavailable QUIROZ, H DEON DATA ENTRY SPECIALIST Unavailable Unavailable QUIROZ, H DEON DATA ENTRY SPECIALIST Unavailable Unavailable QUIROZ, H DEON DATA ENTRY SPECIALIST Unavailable Unavailable QUIROZ, H DEON DATA ENTRY SPECIALIST Unavailable Unavailable QUIROZ, H DEON DATA ENTRY SPECIALIST Unavailable Unavailable QUIROZ, H DEON DATA ENTRY SPECIALIST Unavailable Unavailable QUIROZ, H DEON DATA ENTRY SPECIALIST Unavailable Unavailable QUIROZ, H DEON DATA ENTRY SPECIALIST Unavailable Unavailable QUIROZ, H DEON DATA ENTRY SPECIALIST Unavailable Unavailable QUIROZ, H DEON DATA ENTRY SPECIALIST Unavailable Unavailable QUIROZ, H DEON DATA ENTRY SPECIALIST Unavailable Unavailable QUIROZ, H DEON DATA ENTRY SPECIALIST Unavailable Unavailable QUIROZ, H DEON DATA ENTRY SPECIALIST Unavailable Unavailable QUIROZ, H DEON DATA ENTRY SPECIALIST Unavailable Unavailable QUIROZ, H DEON DATA ENTRY SPECIALIST Unavailable Unavailable QUIROZ, H DEON DATA ENTRY SPECIALIST Unavailable Unavailable QUIROZ, H DEON DATA ENTRY SPECIALIST Unavailable Unavailable QUIROZ, H DEON DATA ENTRY SPECIALIST Unavailable Unavailable QUIROZ, H DEON DATA ENTRY SPECIALIST Unavailable Unavailable QUIROZ, H DEON DATA ENTRY SPECIALIST Unavailable Unavailable QUIROZ, H DEON DATA ENTRY SPECIALIST Unavailable Unavailable QUIROZ, H DEON DATA ENTRY SPECIALIST Unavailable Unavailable QUIROZ, H DEON DATA ENTRY SPECIALIST Unavailable Unavailable QUIROZ, H DEON DATA ENTRY SPECIALIST Unavailable Unavailable QUIROZ, H DEON DATA ENTRY SPECIALIST Unavailable Unavailable QUIROZ, H DEON DATA ENTRY SPECIALIST Unavailable Unavailable QUIROZ, H DEON DATA ENTRY SPECIALIST Unavailable Unavailable QUIROZ, H DEON DATA ENTRY SPECIALIST Unavailable Unavailable QUIROZ, H DEON DATA ENTRY SPECIALIST Unavailable Unavailable QUIROZ, H DEON DATA ENTRY SPECIALIST Unavailable Unavailable QUIROZ, H DEON DATA ENTRY SPECIALIST Unavailable Unavailable QUIROZ, H DEON DATA ENTRY SPECIALIST Unavailable Unavailable QUIROZ, H DEON DATA ENTRY SPECIALIST Unavailable Unavailable QUIROZ, H DEON DATA ENTRY SPECIALIST Unavailable Unavailable QUIROZ, H DEON DATA ENTRY SPECIALIST Unavailable Unavailable QUIROZ, H DEON DATA ENTRY SPECIALIST Unavailable Unavailable QUIROZ, H DEON DATA ENTRY SPECIALIST Unavailable Unavailable QUIROZ, H DEON DATA ENTRY SPECIALIST Unavailable Unavailable QUIROZ, H DEON DATA ENTRY SPECIALIST Unavailable Unavailable Busby, L Abbi RPA Unavailable [...] law may result in a fine or mcc sentence or both. A general authorization for the release of medical or other information is NOT sufficient authorization for further disc losure. Allergies and Adverse Reactions Type Description Substance Reaction Status Data Source(s ) codeine Codeine Sulfate Codeine severe chest pain Active e CW1 ([facility]) tetracycline Tetracycline HCl Tetracycline turned teeth yellow Activ e eCW1 ([facility]) Drug allergy IBU Ibuprofen severe joint and muscle pain Acti ve eCW1 ([facility]) Drug allergy Lyrica pregabalin chest pain and irregular heartbeat Active eCW1 ([facility]) Drug allergy Narcan Naloxone seizures and highly combative Act renny eCW1 ([facility]) Drug allergy Augmentin amoxicillin / clavulanate Diarrhea, vomiting Active eCW1 ([facility]) Drug allergy Dilaudid Hydromorphone itching Active eCW1 ([facility]) Erythromycin Erythromycin Erythromycin Vomiting, Diarrhea Active eCW1 ([facility]) seasonal,dust,mold,ragweed,chestnut blossoms, cut g seasonal,dust,mold,ragweed,chestnut blossoms, cut g seasonal,dust,mold,ragweed,chestnut blossoms, cut g Dyspnea Active eCW1 ([facility]) seasonal,dust,mold,ragweed,chestnut blossoms, cut g seasonal,dust,mold,ragweed,chestnut blossoms, cut g seasonal,dust,mold,ragweed,chestnut blossoms, cut g Dyspnea Active eCW1 ([facility]) Codeine Sulfate Codeine Sulfate Codeine Sulfate severe chest pain Ac tive eCW1 ([facility]) Family History Family Member Name Family Member Gender Family Member Status Date o f Status Description Data Source(s) Unknown Male Problem MEDENT ([facility]) Encounters Encounter Providers Location Date Indications Data Source(s ) Unknown [address] [facility] [address] 10/16/2020 12:00:00 AM EST eCW1 ([facility]) Unknown [address] [facility] [address] 10/16/2020 12:00:00 AM EST eCW1 ([facility]) (TCM) Transition of Care Visit [address] [place] [address] 10/15/2020 12:00:00 AM EST eCW1 ([facility]) Outpatient [address] [facility] [address] 10/09/2020 12:00:00 AM EST eCW1 ([facility]) Unknown [address] [facility] [address] 10/06/2020 12:00:00 AM EST eCW1 ([facility]) Unknown [address] [facility] [address] 10/01/2020 12:00:00 AM EST eCW1 ([facility]) Unknown [address] [facility] [address] 09/30/2020 12:00:00 AM EST [facility]CW1 [facility] Unknown [address] [facility] [address] 09/30/2020 12:00:00 AM EST eCW1 ([facility]) Unknown [address] [facility] [address] 09/19/2020 12:00:00 AM EST eCW1 [facility] Outpatient [address] [facility] [address] 09/10/2020 12:00:00 AM EST [facility]CW[facility] [place] [address] [facility] [address] 09/09/2020 12:00:00 AM EST eCW1 ([facility] Unknown [address] [facility] [address] 09/02/2020 12:00:00 AM EST eCW1 ([facility]) Unknown [address] [facility] [address] 09/01/2020 12:00:00 AM EST eCW1 ([facility]) Outpatient [address] [facility] [address] 08/21/2020 12:00:00 AM EST eCW1 ([facility]) Unknown [address] [facility] [address] 08/12/2020 12:00:00 AM EST eCW1 ([facility]) Unknown [address] [facility] [address] 08/04/2020 12:00:00 AM EST eCW1 ([facility]) Outpatient [address] [facility] [address] 07/09/2020 12:00:00 AM EDT eCW1 ([facility]) Unknown [address] [facility] [address] 07/08/2020 12:00:00 AM EDT eCW1 ([facility]) Unknown [address] [facility] [address] 06/24/2020 12:00:00 AM EDT eCW1 ([facility]) Outpatient Attender: Judi SMITH Main Office 04/02/2020 10:45:00 AM EDT MEDENT ([facility]) Unknown [address] [facility] [address] 03/24/2020 12:00:00 AM EDT eCW1 ([facility]) Outpatient [address] [facility] [address] 03/21/2020 12:00:00 AM EDT eCW1 ([facility]) Outpatient Referrer: DEON QUIROZ NP 02/28/2020 06:12:00 AM E DT [facility] Unknown [address] [place] [address], [place] [address] 02/20/2020 12:00:00 AM EDT eCW1 ([facility]) Outpatient [address] [place] [address], [place] [address] 02/15/2020 12:00:00 AM EDT eCW1 ([facility]) [address] [address] 02/07/2020 12:00:00 AM EDT eCW1 ([facility]) Outpatient Attender: FRANCISCO Mora/Omar/Kaden anderson/Reinjulita 01/17/2020 03:40:00 PM EDT MEDENT ([facility] [address] [address] 01/15/2020 12:00:00 AM EDT eCW1 ([facility]) [address] [address] 01/07/2020 12:00:00 AM EDT eCW1 ([facility]) [address] [address] 01/03/2020 12:00:00 AM EDT eCW1 ([facility]) Outpatient Referrer: DEON QUIROZ DATA ENTRY SPECIALIST 12/13/2019 05:53:00 AM E DT [facility] Outpatient Attender: Abbi Mora/Oamr/Dmitriy/R eindl 12/11/2019 11:00:00 AM EDT MEDENT ([facility]) [address] [address] 12/07/2019 12:00:00 AM EDT eCW1 ([facility]) [address] [address] 11/26/2019 12:00:00 AM EDT eCW1 ([facility]) [facility] [place] [address] [facility] [address] 11/23/2019 12:00:00 AM EDT eCW1 ([facility]) [facility] [place] [address] [facility] [address] 11/19/2019 12:00:00 AM EDT eCW1 ([facility]) [facility] [address] [facility] [address] 11/07/2019 12:00:00 AM EST eCW1 ([facility]) [facility] [address] [facility] [address] 11/07/2019 12:00:00 AM EST eCW1 ([facility]) Outpatient Referrer: DEON QUIROZ NP 11/06/2019 02:23:[address] [facility] [address] [facility] [address] 11/06/2019 12:00:00 AM EST eCW1 ([facility]) [facility] [address] [facility] [address] 10/29/2019 12:00:00 AM EST eCW1 ([facility]) [facility] [address] [place] [address], [place] [address] 10/08/2019 12:00:00 AM EST eCW1 ([facility]) Outpatient Referrer: DEON QUIROZ NP 10/04/2019 01:37:[address] [facility] Outpatient Referrer: DEON QUIROZ NP 09/28/2019 05:46:[address] [facility] [address] [place] [address] [address] 09/26/2019 12:00:00 AM EST eCW1 ([facility]) [facility] [address] [facility] [address] 09/21/2019 12:00:00 AM EST eCW1 ([facility]) [facility] [address] [facility] [address] 09/19/2019 12:00:00 AM EST eCW1 ([facility]) [facility] [address] [facility] [address] 09/13/2019 12:00:00 AM EST eCW1 ([facility]) Outpatient Referrer: DEON QUIROZ NP 08/28/2019 09:07:00 PM E [facility] [address] [facility] [address] 08/27/2019 12:00:00 AM EST eCW1 ([facility]) Immunizations Vaccine Date Status Description Data Source(s) influenza, recombinant, quadrIvalent,injectable, prese rvative free 07/09/2020 11:09:00 AM EDT completed eCW1 ([facility]) influenza, recombinant, quadrIvalent,injectable, prese rvative free 07/09/2020 11:09:00 AM EDT completed eCW1 ([facility]) influenza, recombinant, quadrIvalent,injectable, prese rvative free 07/09/2020 11:09:00 AM EDT completed eCW1 ([facility]) influenza, recombinant, quadrIvalent,injectable, prese rvative free 07/09/2020 11:09:00 AM EDT completed eCW1 ([facility]) influenza, recombinant, quadrIvalent,injectable, prese rvative free 07/09/2020 11:09:00 AM EDT completed eCW1 ([facility]) influenza, recombinant, quadrIvalent,injectable, prese rvative free 07/09/2020 11:09:00 AM EDT completed eCW1 ([facility]) influenza, recombinant, quadrIvalent,injectable, prese rvative free 07/09/2020 11:09:00 AM EDT completed eCW1 ([facility]) influenza, recombinant, quadrIvalent,injectable, prese rvative free 07/09/2020 11:09:00 AM EDT completed eCW1 ([facility]) influenza, recombinant, quadrIvalent,injectable, prese rvative free 07/09/2020 11:09:00 AM EDT completed eCW1 ([facility]) influenza, recombinant, quadrIvalent,injectable, prese rvative free 07/09/2020 11:09:00 AM EDT completed eCW1 ([facility]) influenza, recombinant, quadrIvalent,injectable, prese rvative free 07/09/2020 11:09:00 AM EDT completed eCW1 ([facility]) influenza, recombinant, quadrIvalent,injectable, prese rvative free 07/09/2020 11:09:00 AM EDT completed eCW1 ([facility]) influenza, recombinant, quadrIvalent,injectable, prese rvative free 07/09/2020 11:09:00 AM EDT completed eCW1 ([facility]) influenza, recombinant, quadrIvalent,injectable, prese rvative free 07/09/2020 11:09:00 AM EDT completed eCW1 ([facility]) influenza, recombinant, quadrIvalent,injectable, prese rvative free 07/09/2020 11:09:00 AM EDT completed eCW1 ([facility]) influenza, recombinant, quadrIvalent,injectable, prese rvative free 07/09/2020 11:09:00 AM EDT completed eCW1 ([facility]) influenza, recombinant, quadrIvalent,injectable, prese rvative free 07/09/2020 11:09:00 AM EDT completed eCW1 ([facility]) influenza, recombinant, quadrIvalent,injectable, prese rvative free 07/09/2020 11:09:00 AM EDT completed eCW1 ([facility]) Medications Medication Brand Name Start Date Product Form Dose Route Admi nistrative Instructions Pharmacy Instructions Status Indications Reaction Description Data Source(s) Prednisone 10 MG Oral Tablet PredniSONE 10 MG PredniSONE 10 MG 10/03/2020 12:00:00 AM EST 1.0 {tablet} active Pr edniSONE 10 MG eCW1 ([facility]) Triamcinolone Acetonide 1 MG/ML Topical Cream Triamcin olone Acetonide 0.1 % Triamcinolone Acetonide 0.1 % 10/03/2020 12:00:00 AM EST 1.0 {appli cation} active Triamcinolone Acetonide 0 .1 % eCW1 ([facility]) Prednisone 10 MG Oral Tablet PredniSONE 10 MG PredniSONE 10 MG 10/03/2020 12:00:00 AM EST 1.0 {tablet} active Pr edniSONE 10 MG eCW1 ([facility]) Prednisone 10 MG Oral Tablet PredniSONE 10 MG PredniSONE 10 MG 10/03/2020 12:00:00 AM EST 1.0 {tablet} active Pr edniSONE 10 MG eCW1 ([facility]) Prednisone 10 MG Oral Tablet PredniSONE 10 MG PredniSONE 10 MG 10/03/2020 12:00:00 AM EST 1.0 {tablet} active Pr edniSONE 10 MG eCW1 ([facility]) Prednisone 10 MG Oral Tablet PredniSONE 10 MG PredniSONE 10 MG 10/03/2020 12:00:00 AM EST 1.0 {tablet} active Pr edniSONE 10 MG eCW1 ([facility]) Cephalexin 500 MG Oral Capsule [Keflex] Keflex 500 MG Keflex 500 MG 09/10/2020 12:00:00 AM EST 1.0 {capsule} active K eflex 500 MG eCW1 ([facility]) Cephalexin 500 MG Oral Capsule [Keflex] Keflex 500 MG Keflex 500 MG 09/10/2020 12:00:00 AM EST 1.0 {capsule} active K eflex 500 MG eCW1 ([facility]) Cephalexin 500 MG Oral Capsule [Keflex] Keflex 500 MG Keflex 500 MG 09/10/2020 12:00:00 AM EST 1.0 {capsule} active K eflex 500 MG eCW1 ([facility]) Cephalexin 500 MG Oral Capsule [Keflex] Keflex 500 MG Keflex 500 MG 09/10/2020 12:00:00 AM EST 1.0 {capsule} active K eflex 500 MG eCW1 ([facility]) Cephalexin 500 MG Oral Capsule [Keflex] Keflex 500 MG Keflex 500 MG 09/10/2020 12:00:00 AM EST 1.0 {capsule} active K eflex 500 MG eCW1 ([facility]) apixaban 2.5 MG Oral Tablet [Eliquis] Eliquis 2.5 MG Eliquis 2.5 MG 08/12/2020 12:00:00 AM EST suspended Eliqu is 2.5 MG eCW1 ([facility]) apixaban 2.5 MG Oral Tablet [Eliquis] Eliquis 2.5 MG Eliquis 2.5 MG 08/12/2020 12:00:00 AM EST active Eliquis 2.5 MG eCW1 ([facility]) apixaban 2.5 MG Oral Tablet [Eliquis] Eliquis 2.5 MG Eliquis 2.5 MG 08/12/2020 12:00:00 AM EST active Eliquis 2.5 MG eCW1 ([facility]) apixaban 2.5 MG Oral Tablet [Eliquis] Eliquis 2.5 MG Eliquis 2.5 MG 08/12/2020 12:00:00 AM EST active Eliquis 2.5 MG eCW1 ([facility]) apixaban 2.5 MG Oral Tablet [Eliquis] Eliquis 2.5 MG Eliquis 2.5 MG 08/12/2020 12:00:00 AM EST active Eliquis 2.5 MG eCW1 ([facility]) apixaban 2.5 MG Oral Tablet [Eliquis] Eliquis 2.5 MG Eliquis 2.5 MG 08/12/2020 12:00:00 AM EST suspended Eliqu is 2.5 MG eCW1 ([facility]) apixaban 2.5 MG Oral Tablet [Eliquis] Eliquis 2.5 MG Eliquis 2.5 MG 08/12/2020 12:00:00 AM EST active Eliquis 2.5 MG eCW1 ([facility]) apixaban 2.5 MG Oral Tablet [Eliquis] Eliquis 2.5 MG Eliquis 2.5 MG 08/12/2020 12:00:00 AM EST suspended Eliqu is 2.5 MG eCW1 ([facility]) apixaban 2.5 MG Oral Tablet [Eliquis] Eliquis 2.5 MG Eliquis 2.5 MG 08/12/2020 12:00:00 AM EST active Eliquis 2.5 MG eCW1 ([facility]) apixaban 2.5 MG Oral Tablet [Eliquis] Eliquis 2.5 MG Eliquis 2.5 MG 08/12/2020 12:00:00 AM EST suspended Eliqu is 2.5 MG eCW1 ([facility]) apixaban 2.5 MG Oral Tablet [Eliquis] Eliquis 2.5 MG Eliquis 2.5 MG 08/12/2020 12:00:00 AM EST active Eliquis 2.5 MG eCW1 ([facility]) apixaban 2.5 MG Oral Tablet [Eliquis] Eliquis 2.5 MG Eliquis 2.5 MG 08/12/2020 12:00:00 AM EST active Eliquis 2.5 MG eCW1 ([facility]) apixaban 2.5 MG Oral Tablet [Eliquis] Eliquis 2.5 MG Eliquis 2.5 MG 08/12/2020 12:00:00 AM EST active Eliquis 2.5 MG eCW1 ([facility]) apixaban 2.5 MG Oral Tablet [Eliquis] Eliquis 2.5 MG Eliquis 2.5 MG 08/12/2020 12:00:00 AM EST active Eliquis 2.5 MG eCW1 ([facility]) apixaban 2.5 MG Oral Tablet [Eliquis] Eliquis 2.5 MG Eliquis 2.5 MG 08/12/2020 12:00:00 AM EST active Eliquis 2.5 MG eCW1 ([facility]) apixaban 2.5 MG Oral Tablet [Eliquis] Eliquis 2.5 MG Eliquis 2.5 MG 08/12/2020 12:00:00 AM EST active Eliquis 2.5 MG eCW1 ([facility]) Loperamide Hydrochloride 2 MG Oral Capsule [Imodium] I modium A-D 2 MG Imodium A- D 2 MG 08/01/2020 12:00:00 AM EST 1.0 {capsule_as_needed} active Imodium A-D 2 MG eCW1 ([facility]) Loperamide Hydrochloride 2 MG Oral Capsule [Imodium] I modium A-D 2 MG Imodium A- D 2 MG 08/01/2020 12:00:00 AM EST 1.0 {capsule_as_needed} active Imodium A-D 2 MG eCW1 ([facility]) Loperamide Hydrochloride 2 MG Oral Capsule [Imodium] I modium A-D 2 MG Imodium A- D 2 MG 08/01/2020 12:00:00 AM EST 1.0 {capsule_as_needed} active Imodium A-D 2 MG eCW1 ([facility]) Loperamide Hydrochloride 2 MG Oral Capsule [Imodium] I modium A-D 2 MG Imodium A- D 2 MG 08/01/2020 12:00:00 AM EST 1.0 {capsule_as_needed} active Imodium A-D 2 MG eCW1 ([facility]) Loperamide Hydrochloride 2 MG Oral Capsule [Imodium] I modium A-D 2 MG Imodium A- D 2 MG 08/01/2020 12:00:00 AM EST 1.0 {capsule_as_needed} active Imodium A-D 2 MG eCW1 ([facility]) Loperamide Hydrochloride 2 MG Oral Capsule [Imodium] I modium A-D 2 MG Imodium A- D 2 MG 08/01/2020 12:00:00 AM EST 1.0 {capsule_as_needed} active Imodium A-D 2 MG eCW1 ([facility]) Loperamide Hydrochloride 2 MG Oral Capsule [Imodium] I modium A-D 2 MG Imodium A- D 2 MG 08/01/2020 12:00:00 AM EST 1.0 {capsule_as_needed} active Imodium A-D 2 MG eCW1 ([facility]) Loperamide Hydrochloride 2 MG Oral Capsule [Imodium] I modium A-D 2 MG Imodium A- D 2 MG 08/01/2020 12:00:00 AM EST 1.0 {capsule_as_needed} active Imodium A-D 2 MG eCW1 ([facility]) Loperamide Hydrochloride 2 MG Oral Capsule [Imodium] I modium A-D 2 MG Imodium A- D 2 MG 08/01/2020 12:00:00 AM EST 1.0 {capsule_as_needed} active Imodium A-D 2 MG eCW1 ([facility]) Loperamide Hydrochloride 2 MG Oral Capsule [Imodium] I modium A-D 2 MG Imodium A- D 2 MG 08/01/2020 12:00:00 AM EST 1.0 {capsule_as_needed} active Imodium A-D 2 MG eCW1 ([facility]) Loperamide Hydrochloride 2 MG Oral Capsule [Imodium] I modium A-D 2 MG Imodium A- D 2 MG 08/01/2020 12:00:00 AM EST 1.0 {capsule_as_needed} active Imodium A-D 2 MG eCW1 ([facility]) Levofloxacin 750 MG Oral Tablet Levofloxacin 750 MG 07/09/2020 1 2:00:00 AM EDT 1.0 {tablet} suspended Levofloxa darius 750 MG eCW1 ([facility]) Levofloxacin 750 MG Oral Tablet Levofloxacin 750 MG 07/09/2020 1 2:00:00 AM EDT 1.0 {tablet} active Levofloxaci n 750 MG eCW1 ([facility]) Levofloxacin 750 MG Oral Tablet Levofloxacin 750 MG 07/09/2020 1 2:00:00 AM EDT 1.0 {tablet} active Levofloxaci n 750 MG eCW1 ([facility]) Levofloxacin 750 MG Oral Tablet Levofloxacin 750 MG 07/09/2020 1 2:00:00 AM EDT 1.0 {tablet} active Levofloxaci n 750 MG eCW1 ([facility]) Levofloxacin 750 MG Oral Tablet Levofloxacin 750 MG 07/09/2020 1 2:00:00 AM EDT 1.0 {tablet} active Levofloxaci n 750 MG eCW1 ([facility]) Levofloxacin 750 MG Oral Tablet Levofloxacin 750 MG 07/09/2020 1 2:00:00 AM EDT 1.0 {tablet} active Levofloxaci n 750 MG eCW1 ([facility]) Levofloxacin 750 MG Oral Tablet Levofloxacin 750 MG 07/09/2020 1 2:00:00 AM EDT 1.0 {tablet} suspended Levofloxa darius 750 MG eCW1 ([facility]) Levofloxacin 750 MG Oral Tablet Levofloxacin 750 MG 07/09/2020 1 2:00:00 AM EDT 1.0 {tablet} suspended Levofloxa darius 750 MG eCW1 ([facility]) Levofloxacin 750 MG Oral Tablet Levofloxacin 750 MG 07/09/2020 1 2:00:00 AM EDT 1.0 {tablet} active Levofloxaci n 750 MG eCW1 ([facility]) Levofloxacin 750 MG Oral Tablet Levofloxacin 750 MG 07/09/2020 1 2:00:00 AM EDT 1.0 {tablet} active Levofloxaci n 750 MG eCW1 ([facility]) Levofloxacin 750 MG Oral Tablet Levofloxacin 750 MG 07/09/2020 1 2:00:00 AM EDT 1.0 {tablet} suspended Levofloxa darius 750 MG eCW1 ([facility]) Levofloxacin 750 MG Oral Tablet Levofloxacin 750 MG 07/09/2020 1 2:00:00 AM EDT 1.0 {tablet} active Levofloxaci n 750 MG eCW1 ([facility]) Levofloxacin 750 MG Oral Tablet Levofloxacin 750 MG 07/09/2020 1 2:00:00 AM EDT 1.0 {tablet} active Levofloxaci n 750 MG eCW1 ([facility]) Levofloxacin 750 MG Oral Tablet Levofloxacin 750 MG 07/09/2020 1 2:00:00 AM EDT 1.0 {tablet} active Levofloxaci n 750 MG eCW1 ([facility]) Levofloxacin 750 MG Oral Tablet Levofloxacin 750 MG 07/09/2020 1 2:00:00 AM EDT 1.0 {tablet} active Levofloxaci n 750 MG eCW1 ([facility]) Levofloxacin 750 MG Oral Tablet Levofloxacin 750 MG 07/09/2020 1 2:00:00 AM EDT 1.0 {tablet} active Levofloxaci n 750 MG eCW1 ([facility]) Levofloxacin 750 MG Oral Tablet Levofloxacin 750 MG 07/09/2020 1 2:00:00 AM EDT 1.0 {tablet} active Levofloxaci n 750 MG eCW1 ([facility]) Levofloxacin 750 MG Oral Tablet Levofloxacin 750 MG 07/09/2020 1 2:00:00 AM EDT 1.0 {tablet} suspended Levofloxa darius 750 MG eCW1 ([facility]) Sucralfate 1000 MG Oral Tablet Sucralfate 04/01/2020 12:00:00 AM EDT ORAL active [facility] ([facility]) Vitamin B Complex-C 04/01/2020 12:00:00 AM EDT ORAL active [facility] ([facility]) Vitamin B 12 1 MG Oral Tablet Vitamin B-12 04/01/2020 12:00:00 AM EDT ORAL active [facility] ([facility]) Oxygen - Home 04/01/2020 12:00:00 AM EDT acti ve [facility] ([facility]) Lactulose 667 MG/ML Oral Solution Lactulose 04/01/2020 12:00:00 AM EDT ORAL active [facility] ([facility]) Bisoprolol Fumarate 5 MG Oral Tablet Bisoprolol Fumarate 12:00:00 AM EDT ORAL active [facility] ([facility]) gabapentin 800 MG Oral Tablet Gabapentin 800 MG Gabapentin 8 00 MG 02/19/2020 12:00:00 AM EDT 1.0 {tablet} active Ga bapentin 800 MG eCW1 ([facility]) Albuterol 0.833 MG/ML / Ipratropium Brom doyle 0.167 MG/ML Inhalant Solution Ipratropium-Albuterol 0.5-2.5 (3) MG/3ML Ipratropium-Albuterol 0.5-2.5 (3) MG/3ML 02/19/2020 12:00:00 AM EDT 3.0 {ml_as_needed} active Ipratropium-Albuterol 0.5-2.5 (3) MG/3ML eCW1 ([facility]) Cholecalciferol 10 MCG (400 UNIT) UNK 02/19/2020 12:00:00 AM EDT 1.0 {capsule} suspended Cholecalciferol 10 MCG (400 UNIT) eCW1 ([facility]) Albuterol 0.833 MG/ML / Ipratropium Brom doyle 0.167 MG/ML Inhalant Solution Ipratropium-Albuterol 0.5-2.5 (3) MG/3ML Ipratropium-Albuterol 0.5-2.5 (3) MG/3ML 02/19/2020 12:00:00 AM EDT 3.0 {ml_as_needed} active Ipratropium-Albuterol 0.5-2.5 (3) MG/3ML eCW1 ([facility]) gabapentin 800 MG Oral Tablet Gabapentin 800 MG Gabapentin 8 00 MG 02/19/2020 12:00:00 AM EDT 1.0 {tablet} active Ga bapentin 800 MG eCW1 ([facility]) gabapentin 800 MG Oral Tablet Gabapentin 800 MG Gabapentin 8 00 MG 02/19/2020 12:00:00 AM EDT 1.0 {tablet} active Ga bapentin 800 MG eCW1 ([facility]) Cholecalciferol 10 MCG (400 UNIT) UNK 02/19/2020 12:00:00 AM EDT 1.0 {capsule} active Cholecalciferol 10 MCG ( 400 UNIT) eCW1 ([facility]) Cholecalciferol 10 MCG (400 UNIT) UNK 02/19/2020 12:00:00 AM EDT 1.0 {capsule} active Cholecalciferol 10 MCG ( 400 UNIT) eCW1 ([facility]) Bisoprolol Fumarate 5 MG Oral Tablet Bisoprolol Fumarate 5 M G 02/19/2020 12:00:00 AM EDT 1.0 {tablet} active Bi soprolol Fumarate 5 MG eCW1 ([facility]) Bisoprolol Fumarate 5 MG Oral Tablet Bisoprolol Fumarate 5 M G 02/19/2020 12:00:00 AM EDT 1.0 {tablet} active Bi soprolol Fumarate 5 MG eCW1 ([facility]) Albuterol 0.833 MG/ML / Ipratropium Brom doyle 0.167 MG/ML Inhalant Solution Ipratropium-Albuterol 0.5-2.5 (3) MG/3ML Ipratropium-Albuterol 0.5-2.5 (3) MG/3ML 02/19/2020 12:00:00 AM EDT 3.0 {ml_as_needed} active Ipratropium-Albuterol 0.5-2.5 (3) MG/3ML eCW1 ([facility]) Bisoprolol Fumarate 5 MG Oral Tablet Bisoprolol Fumarate 5 M G 02/19/2020 12:00:00 AM EDT 1.0 {tablet} active Bi soprolol Fumarate 5 MG eCW1 ([facility]) Bisoprolol Fumarate 5 MG Oral Tablet Bisoprolol Fumarate 5 M G 02/19/2020 12:00:00 AM EDT 1.0 {tablet} active Bi soprolol Fumarate 5 MG eCW1 ([facility]) Cholecalciferol 10 MCG (400 UNIT) UNK 02/19/2020 12:00:00 AM EDT 1.0 {capsule} active Cholecalciferol 10 MCG ( 400 UNIT) eCW1 ([facility]) gabapentin 800 MG Oral Tablet Gabapentin 800 MG Gabapentin 8 00 MG 02/19/2020 12:00:00 AM EDT 1.0 {tablet} active Ga bapentin 800 MG eCW1 ([facility]) Albuterol 0.833 MG/ML / Ipratropium Brom doyle 0.167 MG/ML Inhalant Solution Ipratropium-Albuterol 0.5-2.5 (3) MG/3ML Ipratropium-Albuterol 0.5-2.5 (3) MG/3ML 02/19/2020 12:00:00 AM EDT 3.0 {ml_as_needed} active Ipratropium-Albuterol 0.5-2.5 (3) MG/3ML eCW1 ([facility]) Bisoprolol Fumarate 5 MG Oral Tablet Bisoprolol Fumarate 5 M G 02/19/2020 12:00:00 AM EDT 1.0 {tablet} active Bi soprolol Fumarate 5 MG eCW1 ([facility]) gabapentin 800 MG Oral Tablet Gabapentin 800 MG Gabapentin 8 00 MG 02/19/2020 12:00:00 AM EDT 1.0 {tablet} active Ga bapentin 800 MG eCW1 ([facility]) Bisoprolol Fumarate 5 MG Oral Tablet Bisoprolol Fumarate 5 M G 02/19/2020 12:00:00 AM EDT 1.0 {tablet} active Bi soprolol Fumarate 5 MG eCW1 ([facility]) gabapentin 800 MG Oral Tablet Gabapentin 800 MG Gabapentin 8 00 MG 02/19/2020 12:00:00 AM EDT 1.0 {tablet} active Ga bapentin 800 MG eCW1 ([facility]) Albuterol 0.833 MG/ML / Ipratropium Brom doyle 0.167 MG/ML Inhalant Solution Ipratropium-Albuterol 0.5-2.5 (3) MG/3ML Ipratropium-Albuterol 0.5-2.5 (3) MG/3ML 02/19/2020 12:00:00 AM EDT 3.0 {ml_as_needed} active Ipratropium-Albuterol 0.5-2.5 (3) MG/3ML eCW1 ([facility]) Albuterol 0.833 MG/ML / Ipratropium Brom doyle 0.167 MG/ML Inhalant Solution Ipratropium-Albuterol 0.5-2.5 (3) MG/3ML Ipratropium-Albuterol 0.5-2.5 (3) MG/3ML 02/19/2020 12:00:00 AM EDT 3.0 {ml_as_needed} active Ipratropium-Albuterol 0.5-2.5 (3) MG/3ML eCW1 ([facility]) Bisoprolol Fumarate 5 MG Oral Tablet Bisoprolol Fumarate 5 M G 02/19/2020 12:00:00 AM EDT 1.0 {tablet} active Bi soprolol Fumarate 5 MG eCW1 ([facility]) Cholecalciferol 10 MCG (400 UNIT) UNK 02/19/2020 12:00:00 AM EDT 1.0 {capsule} active Cholecalciferol 10 MCG ( 400 UNIT) eCW1 ([facility]) Albuterol 0.833 MG/ML / Ipratropium Brom doyle 0.167 MG/ML Inhalant Solution Ipratropium-Albuterol 0.5-2.5 (3) MG/3ML Ipratropium-Albuterol 0.5-2.5 (3) MG/3ML 02/19/2020 12:00:00 AM EDT 3.0 {ml_as_needed} suspended Ipratropium-Albuterol 0.5-2.5 (3) MG/3ML eCW1 ([facility]) Cholecalciferol 10 MCG (400 UNIT) UNK 02/19/2020 12:00:00 AM EDT 1.0 {capsule} active Cholecalciferol 10 MCG ( 400 UNIT) eCW1 ([facility]) Levofloxacin 500 MG Oral Tablet Levofloxacin 500 MG 02/19/2020 1 2:00:00 AM EDT 1.0 {tablet} active Levofloxaci n 500 MG eCW1 ([facility]) Bisoprolol Fumarate 5 MG Oral Tablet Bisoprolol Fumarate 5 M G 02/19/2020 12:00:00 AM EDT 1.0 {tablet} active Bi soprolol Fumarate 5 MG eCW1 ([facility]) gabapentin 800 MG Oral Tablet Gabapentin 800 MG Gabapentin 8 00 MG 02/19/2020 12:00:00 AM EDT 1.0 {tablet} active Ga bapentin 800 MG eCW1 ([facility]) Albuterol 0.833 MG/ML / Ipratropium Brom doyle 0.167 MG/ML Inhalant Solution Ipratropium-Albuterol 0.5-2.5 (3) MG/3ML Ipratropium-Albuterol 0.5-2.5 (3) MG/3ML 02/19/2020 12:00:00 AM EDT 3.0 {ml_as_needed} active Ipratropium-Albuterol 0.5-2.5 (3) MG/3ML eCW1 ([facility]) Bisoprolol Fumarate 5 MG Oral Tablet Bisoprolol Fumarate 5 M G 02/19/2020 12:00:00 AM EDT 1.0 {tablet} active Bi soprolol Fumarate 5 MG eCW1 ([facility]) Albuterol 0.833 MG/ML / Ipratropium Brom doyle 0.167 MG/ML Inhalant Solution Ipratropium-Albuterol 0.5-2.5 (3) MG/3ML Ipratropium-Albuterol 0.5-2.5 (3) MG/3ML 02/19/2020 12:00:00 AM EDT 3.0 {ml_as_needed} suspended Ipratropium-Albuterol 0.5-2.5 (3) MG/3ML eCW1 ([facility]) Cholecalciferol 10 MCG (400 UNIT) UNK 02/19/2020 12:00:00 AM EDT 1.0 {capsule} suspended Cholecalciferol 10 MCG (400 UNIT) eCW1 ([facility]) Cholecalciferol 10 MCG (400 UNIT) K 02/19/2020 12:00:00 AM EDT 1.0 {capsule} active Cholecalciferol 10 MCG ( 400 UNIT) eCW1 ([facility]) Albuterol 0.833 MG/ML / Ipratropium Brom doyle 0.167 MG/ML Inhalant Solution Ipratropium-Albuterol 0.5-2.5 (3) MG/3ML Ipratropium-Albuterol 0.5-2.5 (3) MG/3ML 02/19/2020 12:00:00 AM EDT 3.0 {ml_as_needed} active Ipratropium-Albuterol 0.5-2.5 (3) MG/3ML eCW1 ([facility]) Cholecalciferol 10 MCG (400 UNIT) K 02/19/2020 12:00:00 AM EDT 1.0 {capsule} active Cholecalciferol 10 MCG ( 400 UNIT) eCW1 ([facility]) Cholecalciferol 10 MCG (400 UNIT) UNK 02/19/2020 12:00:00 AM EDT 1.0 {capsule} active Cholecalciferol 10 MCG ( 400 UNIT) eCW1 ([facility]) Bisoprolol Fumarate 5 MG Oral Tablet Bisoprolol Fumarate 5 M G 02/19/2020 12:00:00 AM EDT 1.0 {tablet} active Bi soprolol Fumarate 5 MG eCW1 ([facility]) Bisoprolol Fumarate 5 MG Oral Tablet Bisoprolol Fumarate 5 M G 02/19/2020 12:00:00 AM EDT 1.0 {tablet} active Bi soprolol Fumarate 5 MG eCW1 ([facility]) Albuterol 0.833 MG/ML / Ipratropium Brom doyle 0.167 MG/ML Inhalant Solution Ipratropium-Albuterol 0.5-2.5 (3) MG/3ML Ipratropium-Albuterol 0.5-2.5 (3) MG/3ML 02/19/2020 12:00:00 AM EDT 3.0 {ml_as_needed} active Ipratropium-Albuterol 0.5-2.5 (3) MG/3ML eCW1 ([facility]) Cholecalciferol 10 MCG (400 UNIT) UNK 02/19/2020 12:00:00 AM EDT 1.0 {capsule} suspended Cholecalciferol 10 MCG (400 UNIT) eCW1 ([facility]) gabapentin 800 MG Oral Tablet Gabapentin 800 MG Gabapentin 8 00 MG 02/19/2020 12:00:00 AM EDT 1.0 {tablet} active Ga bapentin 800 MG eCW1 ([facility]) Albuterol 0.833 MG/ML / Ipratropium Brom doyle 0.167 MG/ML Inhalant Solution Ipratropium-Albuterol 0.5-2.5 (3) MG/3ML Ipratropium-Albuterol 0.5-2.5 (3) MG/3ML 02/19/2020 12:00:00 AM EDT 3.0 {ml_as_needed} suspended Ipratropium-Albuterol 0.5-2.5 (3) MG/3ML eCW1 ([facility]) Albuterol 0.833 MG/ML / Ipratropium Brom doyle 0.167 MG/ML Inhalant Solution Ipratropium-Albuterol 0.5-2.5 (3) MG/3ML Ipratropium-Albuterol 0.5-2.5 (3) MG/3ML 02/19/2020 12:00:00 AM EDT 3.0 {ml_as_needed} active Ipratropium-Albuterol 0.5-2.5 (3) MG/3ML eCW1 ([facility]) Albuterol 0.833 MG/ML / Ipratropium Brom doyle 0.167 MG/ML Inhalant Solution Ipratropium-Albuterol 0.5-2.5 (3) MG/3ML Ipratropium-Albuterol 0.5-2.5 (3) MG/3ML 02/19/2020 12:00:00 AM EDT 3.0 {ml_as_needed} active Ipratropium-Albuterol 0.5-2.5 (3) MG/3ML eCW1 ([facility]) gabapentin 800 MG Oral Tablet Gabapentin 800 MG Gabapentin 8 00 MG 02/19/2020 12:00:00 AM EDT 1.0 {tablet} active Ga bapentin 800 MG eCW1 ([facility]) Bisoprolol Fumarate 5 MG Oral Tablet Bisoprolol Fumarate 5 M G 02/19/2020 12:00:00 AM EDT 1.0 {tablet} active Bi soprolol Fumarate 5 MG eCW1 ([facility]) Albuterol 0.833 MG/ML / Ipratropium Brom doyle 0.167 MG/ML Inhalant Solution Ipratropium-Albuterol 0.5-2.5 (3) MG/3ML Ipratropium-Albuterol 0.5-2.5 (3) MG/3ML 02/19/2020 12:00:00 AM EDT 3.0 {ml_as_needed} active Ipratropium-Albuterol 0.5-2.5 (3) MG/3ML eCW1 ([facility]) Bisoprolol Fumarate 5 MG Oral Tablet Bisoprolol Fumarate 5 M G 02/19/2020 12:00:00 AM EDT 1.0 {tablet} active Bi soprolol Fumarate 5 MG eCW1 ([facility]) Albuterol 0.833 MG/ML / Ipratropium Brom doyle 0.167 MG/ML Inhalant Solution Ipratropium-Albuterol 0.5-2.5 (3) MG/3ML Ipratropium-Albuterol 0.5-2.5 (3) MG/3ML 02/19/2020 12:00:00 AM EDT 3.0 {ml_as_needed} active Ipratropium-Albuterol 0.5-2.5 (3) MG/3ML eCW1 ([facility]) Bisoprolol Fumarate 5 MG Oral Tablet Bisoprolol Fumarate 5 M G 02/19/2020 12:00:00 AM EDT 1.0 {tablet} active Bi soprolol Fumarate 5 MG eCW1 ([facility]) Albuterol 0.833 MG/ML / Ipratropium Brom doyle 0.167 MG/ML Inhalant Solution Ipratropium-Albuterol 0.5-2.5 (3) MG/3ML Ipratropium-Albuterol 0.5-2.5 (3) MG/3ML 02/19/2020 12:00:00 AM EDT 3.0 {ml_as_needed} active Ipratropium-Albuterol 0.5-2.5 (3) MG/3ML eCW1 ([facility]) Cholecalciferol 10 MCG (400 UNIT) UNK 02/19/2020 12:00:00 AM EDT 1.0 {capsule} active Cholecalciferol 10 MCG ( 400 UNIT) eCW1 ([facility]) gabapentin 800 MG Oral Tablet Gabapentin 800 MG Gabapentin 8 00 MG 02/19/2020 12:00:00 AM EDT 1.0 {tablet} active Ga bapentin 800 MG eCW1 ([facility]) Bisoprolol Fumarate 5 MG Oral Tablet Bisoprolol Fumarate 5 M G 02/19/2020 12:00:00 AM EDT 1.0 {tablet} active Bi soprolol Fumarate 5 MG eCW1 ([facility]) Cholecalciferol 10 MCG (400 UNIT) UNK 02/19/2020 12:00:00 AM EDT 1.0 {capsule} active Cholecalciferol 10 MCG ( 400 UNIT) eCW1 ([facility]) Albuterol 0.833 MG/ML / Ipratropium Brom doyle 0.167 MG/ML Inhalant Solution Ipratropium-Albuterol 0.5-2.5 (3) MG/3ML Ipratropium-Albuterol 0.5-2.5 (3) MG/3ML 02/19/2020 12:00:00 AM EDT 3.0 {ml_as_needed} active Ipratropium-Albuterol 0.5-2.5 (3) MG/3ML eCW1 ([facility]) gabapentin 800 MG Oral Tablet Gabapentin 800 MG Gabapentin 8 00 MG 02/19/2020 12:00:00 AM EDT 1.0 {tablet} active Ga bapentin 800 MG eCW1 ([facility]) Bisoprolol Fumarate 5 MG Oral Tablet Bisoprolol Fumarate 5 M G 02/19/2020 12:00:00 AM EDT 1.0 {tablet} active Bi soprolol Fumarate 5 MG eCW1 ([facility]) Bisoprolol Fumarate 5 MG Oral Tablet Bisoprolol Fumarate 5 M G 02/19/2020 12:00:00 AM EDT 1.0 {tablet} active Bi soprolol Fumarate 5 MG eCW1 ([facility]) gabapentin 800 MG Oral Tablet Gabapentin 800 MG Gabapentin 8 00 MG 02/19/2020 12:00:00 AM EDT 1.0 {tablet} active Ga bapentin 800 MG eCW1 ([facility]) Albuterol 0.833 MG/ML / Ipratropium Brom doyle 0.167 MG/ML Inhalant Solution Ipratropium-Albuterol 0.5-2.5 (3) MG/3ML Ipratropium-Albuterol 0.5-2.5 (3) MG/3ML 02/19/2020 12:00:00 AM EDT 3.0 {ml_as_needed} suspended Ipratropium-Albuterol 0.5-2.5 (3) MG/3ML eCW1 ([facility]) Levofloxacin 500 MG Oral Tablet Levofloxacin 500 MG 02/19/2020 1 2:00:00 AM EDT 1.0 {tablet} active Levofloxaci n 500 MG eCW1 ([facility]) Cholecalciferol 10 MCG (400 UNIT) UNK 02/19/2020 12:00:00 AM EDT 1.0 {capsule} active Cholecalciferol 10 MCG ( 400 UNIT) eCW1 ([facility]) Albuterol 0.833 MG/ML / Ipratropium Brom doyle 0.167 MG/ML Inhalant Solution Ipratropium-Albuterol 0.5-2.5 (3) MG/3ML Ipratropium-Albuterol 0.5-2.5 (3) MG/3ML 02/19/2020 12:00:00 AM EDT 3.0 {ml_as_needed} active Ipratropium-Albuterol 0.5-2.5 (3) MG/3ML eCW1 ([facility]) Cholecalciferol 10 MCG (400 UNIT) UNK 02/19/2020 12:00:00 AM EDT 1.0 {capsule} suspended Cholecalciferol 10 MCG (400 UNIT) eCW1 ([facility]) Cholecalciferol 10 MCG (400 UNIT) UNK 02/19/2020 12:00:00 AM EDT 1.0 {capsule} active Cholecalciferol 10 MCG ( 400 UNIT) eCW1 ([facility]) gabapentin 800 MG Oral Tablet Gabapentin 800 MG Gabapentin 8 00 MG 02/19/2020 12:00:00 AM EDT 1.0 {tablet} active Ga bapentin 800 MG eCW1 ([facility]) Cholecalciferol 10 MCG (400 UNIT) UNK 02/19/2020 12:00:00 AM EDT 1.0 {capsule} active Cholecalciferol 10 MCG ( 400 UNIT) eCW1 ([facility]) gabapentin 800 MG Oral Tablet Gabapentin 800 MG Gabapentin 8 00 MG 02/19/2020 12:00:00 AM EDT 1.0 {tablet} active Ga bapentin 800 MG eCW1 ([facility]) Cholecalciferol 10 MCG (400 UNIT) UNK 02/19/2020 12:00:00 AM EDT 1.0 {capsule} active Cholecalciferol 10 MCG ( 400 UNIT) eCW1 ([facility]) Bisoprolol Fumarate 5 MG Oral Tablet Bisoprolol Fumarate 5 M G 02/19/2020 12:00:00 AM EDT 1.0 {tablet} active Bi soprolol Fumarate 5 MG eCW1 ([facility]) Cholecalciferol 10 MCG (400 UNIT) UNK 02/19/2020 12:00:00 AM EDT 1.0 {capsule} active Cholecalciferol 10 MCG ( 400 UNIT) eCW1 ([facility]) gabapentin 800 MG Oral Tablet Gabapentin 800 MG Gabapentin 8 00 MG 02/19/2020 12:00:00 AM EDT 1.0 {tablet} active Ga bapentin 800 MG eCW1 ([facility]) gabapentin 800 MG Oral Tablet Gabapentin 800 MG Gabapentin 8 00 MG 02/19/2020 12:00:00 AM EDT 1.0 {tablet} active Ga bapentin 800 MG eCW1 ([facility]) Bisoprolol Fumarate 5 MG Oral Tablet Bisoprolol Fumarate 5 M G 02/19/2020 12:00:00 AM EDT 1.0 {tablet} active Bi soprolol Fumarate 5 MG eCW1 ([facility]) Bisoprolol Fumarate 5 MG Oral Tablet Bisoprolol Fumarate 5 M G 02/19/2020 12:00:00 AM EDT 1.0 {tablet} active Bi soprolol Fumarate 5 MG eCW1 ([facility]) gabapentin 800 MG Oral Tablet Gabapentin 800 MG Gabapentin 8 00 MG 02/19/2020 12:00:00 AM EDT 1.0 {tablet} active Ga bapentin 800 MG eCW1 ([facility]) gabapentin 800 MG Oral Tablet Gabapentin 800 MG Gabapentin 8 00 MG 02/19/2020 12:00:00 AM EDT 1.0 {tablet} active Ga bapentin 800 MG eCW1 ([facility]) Cholecalciferol 10 MCG (400 UNIT) UNK 02/19/2020 12:00:00 AM EDT 1.0 {capsule} active Cholecalciferol 10 MCG ( 400 UNIT) eCW1 ([facility]) gabapentin 800 MG Oral Tablet Gabapentin 800 MG Gabapentin 8 00 MG 02/19/2020 12:00:00 AM EDT 1.0 {tablet} active Ga bapentin 800 MG eCW1 ([facility]) gabapentin 800 MG Oral Tablet Gabapentin 800 MG Gabapentin 8 00 MG 02/19/2020 12:00:00 AM EDT 1.0 {tablet} active Ga bapentin 800 MG eCW1 ([facility]) gabapentin 800 MG Oral Tablet Gabapentin 800 MG Gabapentin 8 00 MG 02/19/2020 12:00:00 AM EDT 1.0 {tablet} active Ga bapentin 800 MG eCW1 ([facility]) gabapentin 800 MG Oral Tablet Gabapentin 800 MG Gabapentin 8 00 MG 02/19/2020 12:00:00 AM EDT 1.0 {tablet} active Ga bapentin 800 MG eCW1 ([facility]) Cholecalciferol 10 MCG (400 UNIT) UNK 02/19/2020 12:00:00 AM EDT 1.0 {capsule} active Cholecalciferol 10 MCG ( 400 UNIT) eCW1 ([facility]) Albuterol 0.833 MG/ML / Ipratropium Brom doyle 0.167 MG/ML Inhalant Solution Ipratropium-Albuterol 0.5-2.5 (3) MG/3ML Ipratropium-Albuterol 0.5-2.5 (3) MG/3ML 02/19/2020 12:00:00 AM EDT 3.0 {ml_as_needed} suspended Ipratropium-Albuterol 0.5-2.5 (3) MG/3ML eCW1 ([facility]) Albuterol 0.833 MG/ML / Ipratropium Brom doyle 0.167 MG/ML Inhalant Solution Ipratropium-Albuterol 0.5-2.5 (3) MG/3ML Ipratropium-Albuterol 0.5-2.5 (3) MG/3ML 02/19/2020 12:00:00 AM EDT 3.0 {ml_as_needed} active Ipratropium-Albuterol 0.5-2.5 (3) MG/3ML eCW1 ([facility]) Bisoprolol Fumarate 5 MG Oral Tablet Bisoprolol Fumarate 5 M G 02/19/2020 12:00:00 AM EDT 1.0 {tablet} active Bi soprolol Fumarate 5 MG eCW1 ([facility]) Albuterol 0.833 MG/ML / Ipratropium Brom doyle 0.167 MG/ML Inhalant Solution Ipratropium-Albuterol 0.5-2.5 (3) MG/3ML Ipratropium-Albuterol 0.5-2.5 (3) MG/3ML 02/19/2020 12:00:00 AM EDT 3.0 {ml_as_needed} active Ipratropium-Albuterol 0.5-2.5 (3) MG/3ML eCW1 ([facility]) Bisoprolol Fumarate 5 MG Oral Tablet Bisoprolol Fumarate 5 M G 02/19/2020 12:00:00 AM EDT 1.0 {tablet} active Bi soprolol Fumarate 5 MG eCW1 ([facility]) Cholecalciferol 10 MCG (400 UNIT) UNK 02/19/2020 12:00:00 AM EDT 1.0 {capsule} suspended Cholecalciferol 10 MCG (400 UNIT) eCW1 ([facility]) Bisoprolol Fumarate 5 MG Oral Tablet Bisoprolol Fumarate 5 M G 02/19/2020 12:00:00 AM EDT 1.0 {tablet} active Bi soprolol Fumarate 5 MG eCW1 ([facility]) gabapentin 800 MG Oral Tablet Gabapentin 800 MG Gabapentin 8 00 MG 02/19/2020 12:00:00 AM EDT 1.0 {tablet} active Ga bapentin 800 MG eCW1 ([facility]) Cholecalciferol 10 MCG (400 UNIT) UNK 02/19/2020 12:00:00 AM EDT 1.0 {capsule} active Cholecalciferol 10 MCG ( 400 UNIT) eCW1 ([facility]) Lactulose 667 MG/ML Oral Solution Lactulose 01/17/2020 12:00:00 AM EDT active [facility] ([facility]) Fluticasone Propionate 50 MCG/ACT Fluticasone Propionate 50 MCG/ACT 12/07/2019 12:00:00 AM EDT 1.0 {spray_in_each_nostril} acti ve Fluticasone Propionate 50 MCG/ACT eCW1 ([facility]) Fluticasone Propionate 50 MCG/ACT Fluticasone Propionate 50 MCG/ACT 12/07/2019 12:00:00 AM EDT 1.0 {spray_in_each_nostril} susp ended Fluticasone Propionate 50 MCG/ACT eCW1 ([facility]) Fluticasone Propionate 50 MCG/ACT Fluticasone Propionate 50 MCG/ACT 12/07/2019 12:00:00 AM EDT 1.0 {spray_in_each_nostril} susp ended Fluticasone Propionate 50 MCG/ACT eCW1 ([facility]) Fluticasone Propionate 50 MCG/ACT Fluticasone Propionate 50 MCG/ACT 12/07/2019 12:00:00 AM EDT 1.0 {spray_in_each_nostril} acti ve Fluticasone Propionate 50 MCG/ACT eCW1 ([facility]) Fluticasone Propionate 50 MCG/ACT Fluticasone Propionate 50 MCG/ACT 12/07/2019 12:00:00 AM EDT 1.0 {spray_in_each_nostril} susp ended Fluticasone Propionate 50 MCG/ACT eCW1 ([facility]) Fluticasone Propionate 50 MCG/ACT Fluticasone Propionate 50 MCG/ACT 12/07/2019 12:00:00 AM EDT 1.0 {spray_in_each_nostril} acti ve Fluticasone Propionate 50 MCG/ACT eCW1 ([facility]) Fluticasone Propionate 50 MCG/ACT Fluticasone Propionate 50 MCG/ACT 12/07/2019 12:00:00 AM EDT 1.0 {spray_in_each_nostril} acti ve Fluticasone Propionate 50 MCG/ACT eCW1 ([facility]) Fluticasone Propionate 50 MCG/ACT Fluticasone Propionate 50 MCG/ACT 12/07/2019 12:00:00 AM EDT 1.0 {spray_in_each_nostril} acti ve Fluticasone Propionate 50 MCG/ACT eCW1 ([facility]) Fluticasone Propionate 50 MCG/ACT Fluticasone Propionate 50 MCG/ACT 12/07/2019 12:00:00 AM EDT active 1 spray in each nostril eCW1 ([facility]) Fluticasone Propionate 50 MCG/ACT Fluticasone Propionate 50 MCG/ACT 12/07/2019 12:00:00 AM EDT 1.0 {spray_in_each_nostril} acti ve Fluticasone Propionate 50 MCG/ACT eCW1 ([facility]) Fluticasone Propionate 50 MCG/ACT Fluticasone Propionate 50 MCG/ACT 12/07/2019 12:00:00 AM EDT 1.0 {spray_in_each_nostril} acti ve Fluticasone Propionate 50 MCG/ACT eCW1 ([facility]) Fluticasone Propionate 50 MCG/ACT Fluticasone Propionate 50 MCG/ACT 12/07/2019 12:00:00 AM EDT 1.0 {spray_in_each_nostril} susp ended Fluticasone Propionate 50 MCG/ACT eCW1 ([facility]) Fluticasone Propionate 50 MCG/ACT Fluticasone Propionate 50 MCG/ACT 12/07/2019 12:00:00 AM EDT 1.0 {spray_in_each_nostril} acti ve Fluticasone Propionate 50 MCG/ACT eCW1 ([facility]) Fluticasone Propionate 50 MCG/ACT Fluticasone Propionate 50 MCG/ACT 12/07/2019 12:00:00 AM EDT 1.0 {spray_in_each_nostril} acti ve Fluticasone Propionate 50 MCG/ACT eCW1 ([facility]) Fluticasone Propionate 50 MCG/ACT Fluticasone Propionate 50 MCG/ACT 12/07/2019 12:00:00 AM EDT 1.0 {spray_in_each_nostril} acti ve Fluticasone Propionate 50 MCG/ACT eCW1 ([facility]) Fluticasone Propionate 50 MCG/ACT Fluticasone Propionate 50 MCG/ACT 12/07/2019 12:00:00 AM EDT 1.0 {spray_in_each_nostril} acti ve Fluticasone Propionate 50 MCG/ACT eCW1 ([facility]) Fluticasone Propionate 50 MCG/ACT Fluticasone Propionate 50 MCG/ACT 12/07/2019 12:00:00 AM EDT 1.0 {spray_in_each_nostril} acti ve Fluticasone Propionate 50 MCG/ACT eCW1 ([facility]) Fluticasone Propionate 50 MCG/ACT Fluticasone Propionate 50 MCG/ACT 12/07/2019 12:00:00 AM EDT active 1 spray in each nostril eCW1 ([facility]) Fluticasone Propionate 50 MCG/ACT Fluticasone Propionate 50 MCG/ACT 12/07/2019 12:00:00 AM EDT 1.0 {spray_in_each_nostril} acti ve Fluticasone Propionate 50 MCG/ACT eCW1 ([facility]) Fluticasone Propionate 50 MCG/ACT Fluticasone Propionate 50 MCG/ACT 12/07/2019 12:00:00 AM EDT 1.0 {spray_in_each_nostril} acti ve Fluticasone Propionate 50 MCG/ACT eCW1 ([facility]) Fluticasone Propionate 50 MCG/ACT Fluticasone Propionate 50 MCG/ACT 12/07/2019 12:00:00 AM EDT 1.0 {spray_in_each_nostril} acti ve Fluticasone Propionate 50 MCG/ACT eCW1 ([facility]) Fluticasone Propionate 50 MCG/ACT Fluticasone Propionate 50 MCG/ACT 12/07/2019 12:00:00 AM EDT 1.0 {spray_in_each_nostril} acti ve Fluticasone Propionate 50 MCG/ACT eCW1 ([facility]) Fluticasone Propionate 50 MCG/ACT Fluticasone Propionate 50 MCG/ACT 12/07/2019 12:00:00 AM EDT 1.0 {spray_in_each_nostril} susp ended Fluticasone Propionate 50 MCG/ACT eCW1 ([facility]) Fluticasone Propionate 50 MCG/ACT Fluticasone Propionate 50 MCG/ACT 12/07/2019 12:00:00 AM EDT 1.0 {spray_in_each_nostril} acti ve Fluticasone Propionate 50 MCG/ACT eCW1 ([facility]) Fluticasone Propionate 50 MCG/ACT Fluticasone Propionate 50 MCG/ACT 12/07/2019 12:00:00 AM EDT 1.0 {spray_in_each_nostril} acti ve Fluticasone Propionate 50 MCG/ACT eCW1 ([facility]) Spironolactone 25 MG Oral Tablet Spironolactone 25 MG active 1 tablet with food eCW1 ([facility]) Spironolactone 25 MG Oral Tablet Spironolactone 25 MG active 1 tablet with food eCW1 ([facility]) Spironolactone 25 MG Oral Tablet Spironolactone 25 MG active 1 tablet with food eCW1 ([facility]) Spironolactone 25 MG Oral Tablet Spironolactone 25 MG active 1 tablet with food eCW1 ([facility]) Spironolactone 25 MG Oral Tablet Spironolactone 25 MG active 1 tablet with food eCW1 ([facility]) Spironolactone 25 MG Oral Tablet Spironolactone 25 MG active 1 tablet with food eCW1 ([facility]) Spironolactone 25 MG Oral Tablet Spironolactone 25 MG active 1 tablet with food eCW1 ([facility]) Spironolactone 25 MG Oral Tablet Spironolactone 25 MG active 1 tablet with food eCW1 ([facility]) Spironolactone 25 MG Oral Tablet Spironolactone 25 MG active 1 tablet with food eCW1 ([facility]) Spironolactone 25 MG Oral Tablet Spironolactone 25 MG active 1 tablet with food eCW1 ([facility]) Spironolactone 25 MG Oral Tablet Spironolactone 25 MG active 1 tablet with food eCW1 ([facility]) Spironolactone 25 MG Oral Tablet Spironolactone 25 MG active 1 tablet with food eCW1 ([facility]) Spironolactone 25 MG Oral Tablet Spironolactone 25 MG active 1 tablet with food eCW1 ([facility]) Insurance Providers Payer name Policy type / Coverage type Policy ID Covered libertarian ID Covered libertarian's relationship to mena Policy Mena Plan Information BHARTI [id number] SP [id number] EMEDNY [id number] SP [id number] BHARTI FORMERLY [facility] [id number] S [id number] BHARTI [id number] SP [id number] 800 ANSI-Commercial [id number] ANSI-Medicaid [id number] ANSI-Commercial [id number]-fyx4-0l74-[id number] 9zg9af7n-wrg2-9n80-[id number] ANSI-Medicaid [id number] [facility] Medicaid [id number] Self [id number] [place] [employer] (HMO) [id number] Self [id number] Medicaid Medigap Part B [id number] Self [id number] [place] - Medicaid [employer] (HMO) [id number] 800 Self [id number] [facility]-Medicaid [id number] MEDICAID [id number] SP [id number] ANSI-Medicaid [id number] ANSI-Medicaid [id number] Medicaid P [id number] S [id number] ANSI-Commercial 133c6i2e-wx18-847p-9a4b-to9b6pvv84w0 451k1e8n-zl37-149d-9i2p-mp7r5jjy00d2 ANSI-Medicaid [id number] ANSI-Commercial qbf5matm-5sm7-9t3f-089k-gp25dm53qyh0 akn4ehcr-7gt0-7s0h-025g-rc73ar68kqw2 ANSI-Medicaid [id number] ANSI-Commercial [id number]-s617-6279-de1m-15klh03173j5 022j3i44-w713-0495-bc8a-52dwj97067r1 [facility] [id number] [facility]-Medicaid [id number] ANSI-Commercial 9zr6q230-293o-2266-2097-4937xxc2b465 7fi5m149-797e-1103-1031-1776qai9g431 ANSI-Commercial 8amc6en1-6660-3020-0jyk-851325v70841 3yvz3tc9-9523-4680-9pzy-957614u19904 ANSI-Commercial 598459s7-7741-22y2-6593-531t3kv1874v 905265n8-4670-34x0-9416-008y0kr5063d [facility]-Med[facility] [id number] ANSI-Medicaid [id number] ANSI-Commercial 4eh4e5t3-pb6v-35x3-g686-8d643r3q36a7 3nr7s9l9-vq0x-13g6-w588-0p466b8r81r9 ANSI-Medicaid [id number] ANSI-Medicaid [id number] [employer] [id number] [id number]-r851-77dw-ll52-0t0gvm5en4pn ANSI-Medicaid [id number] ANSI-Medicaid [id number]-60q6-9pb7-6zg3-y45opjh2z8yy ANSI-Commercial t9518goh-1pp1-9y99-11r9-8473fp358940 w4177ols-4km7-1z75-12j3-8899to152396 ANSI-Commercial c215999o-91md-9j3s-s816-mt14s49853n2 f602916h-64br-9i0o-h845-tu66v18442f9 ANSI-Medicaid [id number]-b8ld-[id number] ANSI-Commercial 2t948s6x-6i67-6o1i-y9s2-0lp7g8377724 1m296r9n-7v22-8n6r-f2p6-2jm4k9610139 ANSI-Medicaid [id number]-pbxv-[id number] ANSI-[facility] [id number]-x498-52g5-k37b-h60w676x27d6 3020346z-d108-32t1-n61s-k77h824q99s1 ANSI-Commercial cu72n483-4218-5407-py5c-2ghg7sdyr7h8 bc79b690-9322-9930-dc4f-7geb2kcnj9o7 [facility] [id number]-[id number] y0e79235-26j6-1egw-3a25-4eq35q942822 ANSI-Medicaid [id number] ANSI-Medicaid [id number]-1ya6-4j55-[id number] ANSI-Medicaid [id number]-[id number] ANSI-Medicaid [id number] ANSI-Commercial 7s35w03h-1p15-057c-hom0-b72u8pw150k6 0n10t83x-9a83-435h-kkg7-t16t3gf857m2 [facility] qpny24u8-o4k9-0gcm-m46l-181892f0ww98 zywn66k3-s7z6-1vpf-x81f-701506f4yd24 [facility]-Medicaid [id number] ANSI-Commercial o18sv568-st81-923j-57t9-2804j8m6e15g g23zg622-qp90-723x-41l8-9580q0k1d19e ANSI-Medicaid [id number] ly62x8b6-1u43-8oy1-216z-w7ksu13l4ure ANSI-Commercial 4691c78i-udq0-44j5-t567-c2320461c52s 3898w82x-qxr1-09d6-k431-w5882092u40x ANSI-Medicaid [id number]-7z0v-q88r-[id number] ANSI-Commercial gaaq951n-w96u-5r51-0240-5371m8pc869s hicp515y-n97x-5z96-4013-8383a9rk089q ANSI-Commercial 3k781190-3lc8-4774-g47n-78i94eb3os6u 2e197098-6ew5-1173-m62d-03s55dt2rx6m ANSI-Medicaid [id number]-1xur-1477-8sye-440b13l4l8ws ANSI-Medicaid [id number]-[id number] ANSI-Commercial 2c938011-9768-0130-wgpk-2n5n4l8iz4zf 7b481160-2879-0395-xdxi-5v2a7f5bz8wy ANSI-Medicaid [id number]-ca1h-87ri-as86-6k5d2v097ei0 ANSI-Commercial 356mii3c-709d-28v6-d736-424kz2rp72d6 472zxk4j-902m-49o4-d356-684vj6zr90d7 ANSI-Medicaid [id number] cp0rzhvh-bi5z-3479-s470-1z3h007bq1lu ANSI-Commercial 995oy950-91b7-2na4-erin-0v81418x9104 405ry552-78z8-3xt5-dldp-5z16035e6774 ANSI-Commercial rla4yp50-fegq-6cy6-5146-05062l46g9hu zcy2se03-lrrd-3su3-5011-18498k29c1ll ANSI-Medicaid [id number] 7640101h-a60g-8fo2-w71n-[id number] ANSI-Medicaid [id number]-[id number] ANSI-Commercial 53h6d1ck-5amd-8b5b-sl5u-n866314038i1 12n8a9nr-7ubc-2d5n-sv3d-h492182550y2 ANSI-Medicaid [id number]-[id number] p0aq6d19-1uj9-7sl3-phb7-rk23du0rn65o ANSI-Commercial frf95315-3x1c-8dwi-3su6-l3611fs7x87z fnp58643-3v2c-8ftk-8rj4-d1026hl2o72f ANSI-Commercial 6qv47604-vq58-5u2h-4d92-939r33s7sch5 5cp27001-nb08-4i7p-9a47-516x76s8kls2 ANSI-Commercial 1s17s7m7-0611-7qh2-axh5-3l4scee09ml1 0n22h3y7-8320-0pl8-bdg1-2l2zttr09lr7 ANSI-Medicaid [id number] w2n7ry21-128l-7406-o771-y6p2ca0b8878 [facility]-Med[facility] [id number] [facility]-Medicaid [id number]-[id number] [facility]-Medicaid [id number]-u187-3t49-y9se-[id number] ANSI-Commercial 7te003oc-w8mv-1953-8e98-xoy41b31wes8 0jq426sg-o7xa-3850-9b65-bau39u59nwi2 ANSI-Commercial 23r7l16j-161k-1wv4-yp81-40307st30229 52c6d89z-890e-8oz0-el96-03933pf47354 ANSI-Commercial 39h2v48p-609m-2474-161p-598kso9wd702 22u2l52g-427l-5296-510m-031fxb0ac846 ANSI-Medicaid [id number]-pirz-7764-f64s-[id number] ANSI-Medicaid [id number]0t281r1l82p ANSI-Commercial 9wrlb09s-u588-6d44-000x-ps4ae73n367o 2uyur03i-s645-8k87-911x-pp5vj81g443d ANSI-[employer] u45q1936-gt08-9472-lz1g-a5773x17vv9z f85q6527-dv95-6871-oj4f-l5337l72nk0r ANSI-Medicaid [id number]-[id number]-[id number]-[id number] 62sm8w9z-8y0f-9ca6-3209-r1q8hni019qm [employer] 96744rv0-04tq-70e8-hr39-733jr3159e10 93440mp2-95gi-64l9-ay59-535qd0642z53 ANSI-Medicaid [id number] ei66qf7t-p5jp-3062-m0p8-[id number] ANSI-Medicaid [id number]-5637-9tab-6jx0-o04s0c265k49 ANSI-Medicaid [id number] 7ce2p49j-mhj0-8j46-4802-7zv6270l086q ANSI-[employer] 0m2445e5-006i-713q-15w1-b1b9n15t7251 8p7618n7-490g-508j-18v5-g3o4p05x9785 [employer] CommunicationsCommercial o4s96438-8xat-04gj-52bo-644y35j274w2 d9k42867-8uty-50yh-03sq-117y29x406a2 ANSI-Medicaid [id number] x8k0j4i0-3f00-32r3-[id number] ANSI-Medicaid [id number] 5x5remx8-90p8-8bh5-[id number] ANSI-Commercial 78i5cg65-hk4v-17br-s5q2-89upu65312pm 24m0en45-hs7h-48ch-x5l4-30jyk50940cn ANSI-Commercial es7n2604-c717-20x6-wl8y-0b12p86834ab dp4m0787-i765-38k5-nq3u-0f05z54937an ANSI-Medicaid [id number]-[id number] 158u5ikv-3272-5nlq-4o8u-6yi4vhz5wi70 ANSI-Medicaid [id number]-[id number] ANSI-Commercial 5a87951w-2x68-6250-x2z0-e61q9743x95h 0s57017i-6z53-0402-x9u3-l76y3910t17b ANSI-Commercial 150hk1xt-cb8l-1s87-88l2-1p344z71p273 808pc1ve-te0h-1w36-56g5-8r784v02g340 ANSI-Commercial 9i468176-aa0d-988r-m89l-b70ilm7d5wjj 9g255915-yl3p-996q-a91g-e13lwz8w5jxg ANSI-Medicaid [id number]-03b4-810a-g19z-o2375lz69t9c ANSI-Commercial 9lg4koeh-40vb-36e7-06t3-buu43w9361y8 7fd3dydk-39cl-50i4-29z3-ryy60h5990x8 ANSI-Medicaid [id number] 1u5h0k41-351f-55pf-3020-c0453sx9et59 ANSI-Medicaid [id number] 7u58b7u5-83y0-064s-m6vt-[id number] ANSI-Medicaid [id number] 455m0a40-u913-2j99-26ox-205qj1rs1kbf ANSI-Commercial 9h5f4j66-cm13-6a03-g9gv-d82ir1zoa6z7 9e7p4t15-wj62-7e18-w7zw-q96zf3sie1c0 ANSI-Commercial 52z49344-5w6n-91t3-6z14-4dq169n4224l 00m03997-1e2b-03v7-1o24-0xf534b2086j ANSI-Medicaid [id number] 5do76jc7-67u3-8o37-5605-duc4u5u9fxm0 ANSI-Medicaid [id number]-42v5-17r1-8hhkx0ekor47 ANSI-Commercial 020460t7-35jk-52r5-79v9-0398ee20thcc 172308k7-06dt-14t2-34t3-9104so88wxhm ANSI-Commercial 0m638ee6-n570-7086-13i6-4y383217048k 8f119ur5-j274-6216-34z0-8t327882430a ANSI-Commercial rnf564w8-6406-6e73-9571-83ow2hvch92r xdd406s6-4188-9o34-0413-46nb7nkds91g ANSI-Medicaid [id number] s577s37u-9116-9e0c-m23g-0p142g7wpnkl ANSI-Commercial s361v611-70bg-5w52-ul83-5r7e839adkz8 i451l382-09vc-9a17-ip20-1l8e631aqvx4 ANSI-Medicaid [id number]-k157-[id number] [id number]-a764-[id number] ANSI-Commercial m1r895f8-0y02-6569-go55-63dev00122e1 m8b801o5-0k05-5930-zm95-19bdd29911p4 ANSI-Commercial 3222l08i-0zg3-3u90-r63g-7e3yck843316 1595f72j-0vx3-4x00-v35v-7q3ilq092946 [facility]-Medicaid [id number]-i857-co06eq1n0mq6 [facility]-Med[facility] [id number]-[id number] ANSI-Commercial 459g953g-1s5p-69s6-lg37-30n706l38050 134c329e-9o8m-28c0-ub53-13b137f51219 [facility]-Medicaid [id number] [facility]-Medicaid [id number]-h8l4-0q0yii7ca3h5 ANSI-Commercial z6g8vkmg-4949-079v-n12r-8u55f94x7421 f3m3jzyt-9994-370l-z58x-0e52a18t1605 [facility]-Medicaid [id number]-gi3k-5mjp-f97o-4d6r0j650set [employer] l562s4g0-ez77-09ny-9376-0s706y2w61v5 q350g6k9-va50-29py-0750-9v902y5v93f7 ANSI-Medicaid [id number]-[id number] [employer] mxjo7843-7b1t-138c-16p2-db140dc2f2g6 uljp8742-3f5h-202p-27r9-fy139ch4e4y7 [employer] 0844z59a-87y5-60hh-077f-674d20u45339 3214f15e-15b7-43to-649n-099q58j81742 [employer] 45732g99-0km0-8uyz-7066-1369f8c9rd33 25969h26-4az3-0cmq-8166-6068q3v9dm84 [employer]-Medicaid [id number] vgx8d3ku-s89r-4go7-2igi-[id number] ANSI-Medicaid [id number] [employer]-Medicaid [id number]-8z0f-w7048dpu7r2a [employer] 296zq22w-13gz-491b-4240-w3ad56p7m3f6 748gl21u-04mw-383u-1315-m0dk89n9c8d1 [employer] h6069t18-7f1c-8q32-x434-kd33v8a11255 x6950r59-5x3v-0k74-n641-za64e2a19783 [facility]-Medicaid [id number]-t17l-1j18-8j7n-55f222nk59m8 [facility] [id number]-je44-850u-[id number] ANSI-Commercial 0f08k26l-2q75-2nh0-65u5-fp356vga4065 8n23z57t-1a73-3rb1-83k9-bn647ahv0071 [facility]-Commercial 752m076b-ga29-7n39-x2c1-e4fr5655b875 613i473t-lr99-3w81-u3c5-n6ge4653u189 [facility]-Medicaid [id number] [facility]-Medicaid [id number]-[id number]-[id number] [facility]-Medicaid [id number] ANSI-Commercial q9849448-9230-0dp8-797t-8n2me10l749w g2947834-9685-1sr5-674o-2o4yh96h590f ANSI-Commercial pan891ew-b23k-09o4-8183-7tb58iqso7xf hiq954il-i59a-54r5-5475-0ch35hffd2xo ANSI-Medicaid [id number] ANSI-Commercial 6w5sr653-843k-159r-e056-z9hm5dla1cos 3a5bu316-964m-362n-h209-f6bf7sye7hki ANSI-Medicaid [id number]-[id number] [employer] 72r0238d-f058-0902-usyi-0p36b21625s2 32k9547s-s214-9980-jxnr-7o50k29258s5 [employer] rx24505j-9w4u-79hl-17w1-439830o6ef1b cd15901j-9f1q-35bw-48z4-631519x9ee3m [employer] xl39w419-wfk3-22z4-2uc5-63x883frr218 ec84h666-cgi7-25d2-0cr2-30g874lfm581 [facility]icaid [id number]-[id number] [facility] [id number]-[id number] [employer] 6aft232o-ae4h-9l02-l063-88ptaa4012g2 8loe917c-pa8k-6l47-y430-01vwgj9076t0 [facility] [id number]-[id number] [facility] CommunicationsCom[facility] j94gv092-zz6g-722x-1779-9kui6uy457mc a16ey868-gj7y-178z-6084-8vsg5gs715fx [facility] CommunicationsMedicaid [id number]-wgbt-[id number] ANSI-Medicaid [id number]-7556-[id number] ANSI-Medicaid [id number]-e08i-[id number] ANSI-Commercial s7iwkfg5-kp36-0050-3qo1-7795mm8m0q9d g8pmsqy5-cz46-1126-1js1-5827xh0n2y3g ANSI-Commercial 75922ie9-1l5d-81e4-ey31-gp97781t0ts7 23771zl1-3n7k-11h9-ft16-wc68510l7yl5 [facility] CommunicationsCommercial 5d753736-u9r4-8n9u-7381-j116160112j9 4f601799-b7k3-4g2o-2661-j940191638g3 [employer] [employer]Com[facility] 08l26pt7-964q-768v-z5b6-87x4h245k9py 54v01ov1-790c-061z-e3h5-98s4u337i0do ANSI-Medicaid [id number] [facility]-Medicaid [id number] ANSI-Commercial n29n713z-4xl2-473w-8yp1-69jpt993975y i78f674w-8ya1-010q-4ff3-44prs361875k ANSI-Medicaid [id number] ANSI-Commercial 218o17kh-3m3i-5j06-g432-55f7x0i0k90x 638h33ud-3u8u-0c36-b786-38m8d0j2v75e ANSI-Medicaid [id number] [facility]-Commercial 4770zk8d-i05s-98i5-5968-2115607nb2r5 7712sl4t-x85q-54r2-1566-9688912zn4j6 [facility]-Medicaid [id number]-g0uk-40l8-[id number] [facility] 73752q5z-7y05-90ix-6870-3561n42281s8 49440e2h-5k91-20hq-5475-1858m85699d1 [facility]-Medicaid [id number]-992n-cjf6-[id number] [facility] xg0841cq-4x87-8qps-1g20-rn86bn01wo0g uz1797cd-6p85-9oho-7v35-kf03fg69sc7i ANSI-Medicaid [id number]-[id number]-[id number] ANSI-Medicaid [id number]-h31p-k8d36oi4d4c4 [facility] 4iee8x19-51j0-56zw-fu2m-3c0809s0mf36 1onp3e09-71b4-46qx-ok3q-2t0096p0oj13 ANSI-Medicaid [id number]-yqxm-9090-tz12-ahd4v182wv4i [facility] 8i552618-7y53-7i59-r539-ll4lit96g90a 0e566224-0h73-2k50-q907-bb5ayf76l16y [employer] n6o825f6-uv70-8yjx-r239-r70516v72133 x6a388q7-lf47-5vkp-v170-x89507g54190 [facility] [id number]-[id number] f283xp35-4pi3-6f69-bpd5-cu414sh3g0z8 ANSI-Medicaid [id number]-k8ju-[id number] [employer] 2as4787a-4x08-8ym0-p25k-2we7143gr370 1qo0310i-6z29-0uk3-q73v-5ly5436so716 [facility] 795717v7-9yt1-6566-ut0a-v6416q63523k 638335v3-4lk7-7585-ly2f-j1310a19396l ANSI-Medicaid [id number] ANSI-Medicaid [id number]-k778-[id number] [facility] [id number]-duz1-75zj-80th-[id number] [employer] vxcu31pd-7hf9-07nz-oaa0-x93k7y89jdh5 zigc70pw-9ro7-52hg-yyu6-f55u4v70brd2 [employer] e7m24hyo-am08-0512-989r-1446795zq950 b5y36tzq-gr25-2732-409d-0479059bb608 ANSI-Commercial 4s8545c8-f03z-6m11-214w-53fcj0q43206 5o5144i7-q24z-5q26-267q-26xgv8a51410 ANSI-Medicaid [id number]-[id number]-[id number] ANSI-Medicaid [id number]-[id number] 60j6k7z8-415w-5134-p9ig-k6ef9y93ad0c ANSI-Commercial 657fcvzm-m873-471hb073-299r-1w03-dlup6s8c0d64 696dzlhy-q783-919qn720-980j-4p95-ukgv7a6x9y13 ANSI-Medicaid [id number]-568t-6l44-s851-2hrhj2ku48n7 ANSI-Commercial kp29300g-6637-3070-8122-f712x947oi36 oy91564j-4956-6237-8984-a022f381xc39 ANSI-Medicaid [id number] 53x6b7b8-9tsu-22o2-7458-[id number] ANSI-Commercial st46x195-53q6-4b91-554d-4475gg396op7 uu06u339-93r3-2g39-025m-0404by201hn5 ANSI-Medicaid [id number] [id number]-[id number] ANSI-Commercial 1h0j5500-1pm4-1097-z857-33xb6f686777 5s8g4910-5xz7-0485-b958-58xz0t637544 ANSI-Medicaid [id number]-s09q-[id number] 9606kz9c-j98u-7mb0-9252-[id number] ANSI-Commercial 1j612d76-sff8-05a9-29v4-vh4yg9b59942 7v494j61-veb4-52y6-17v3-zq5wm4u38936 ANSI-Medicaid [id number]-[id number] q7l823z3-0m27-66l9-5fuh-6x3d98us755u ANSI-Commercial 7hp33c1e-3506-428p-x3p1-zz38n9hl678g 2zt76g4v-3383-052s-u8a4-fs27h3bo300g ANSI-Medicaid [id number]-kp23-7u73-lbf0-l34d404zwnd1 ANSI-Commercial f801bmsu-43t4-72f4-y7od-305418j2863n z493prin-25e8-96u0-l8wf-701840d9358h ANSI-Medicaid [id number] u30w7nik-754n-3109-[id number] ANSI-Medicaid [id number]-14k2-0631-[id number] ANSI-Commercial 1727c9v9-c77m-6g27-3uwa-e72bg01hz4wi 5264v3o9-a49k-7u52-8ula-r73rl67ef4gq ANSI-Commercial p6j01w90-m2so-4jxm-4toc-59671y4d2a02 l2y58r77-p4of-6xhv-2nka-90016p5o5j14 ANSI-Medicaid [id number]-[id number] 8b7bfj57-x97v-58bm-c42i-[id number] ANSI-Commercial mm3aa3r1-x610-815l-r339-222y89uz4448 lr5av7y1-i295-428p-a129-142v24rb6121 ANSI-Commercial v5876z42-6675-9934-zy01-4860ci3q36pv l5577b61-6930-2364-ej40-1590cm3d96sl ANSI-Medicaid [id number]-[id number]-[id number] 2o77c50z-hv3a-0j87-63oq-4432o1lte5c5 ANSI-Medicaid [id number]-[id number]-[id number] 25re8a75-y442-46gi-4i7t-4wh8ic7bd370 ANSI-Medicaid [id number]-w0j2-70gm-[id number] ANSI-Commercial 33x729y1-6j09-1417-a556-958a28h84285 86e042a7-8m46-2180-l515-586l68r33855 ANSI-Commercial rle9n0w7-8419-4i32-pyz2-52p4x9n7k923 prz6n7a7-4033-4s95-bjh3-25n0r0s8s736 ANSI-Commercial 2703f7l0-616v-209e-1993-1s29f2y2625s 5484b8q6-195u-297r-4056-9a89r8t8900g ANSI-Medicaid [id number]-[id number] ANSI-Commercial 369k3w47-o18x-9i45-9w2p-7l049bo6n9t4 194e2t51-f29t-6y20-2q9v-1u706oh8g8x4 [facility]-Medicaid [id number]-[id number]-[id number] ANS-Commercial 39g15177-d94v-7a96-1jz8-iav8ymccs3ei 06o34187-a39m-2c13-0on7-cgp8lvetl5po [facility]-Medicaid [id number]-a86s-3vki-[id number]-[id number] jb7yzm1a-e36r-4htm-z74u-09904sblfegm ANSI-Medicaid [id number]-qw77-0567-09k6-wxs8l03we2cy ANS-[facility] 20376ith-6hx2-8651-no7k-3xec1a08l457 33396eus-3nx9-7451-vv7y-3ivs2x95v023 [facility]-Commercial 7daf1l1x-p069-35k1-30b9-29i8603m6l31 0uyv2w3u-j375-87l3-58n6-55q3671n8y27 ANSI-Medicaid [id number] [id number]-r467-192g-y30t-896t4lk205cs [facility]-Medicaid [id number]-[id number] ANSI-Commercial 5o904i24-6634-7n22-4445-9g25159106ig 5x706m38-7100-9l26-2782-5i61203781hv [facility]-Medicaid [id number]-[id number] ANSI-Medicaid [id number] ANSI-Commercial z91y2z10-n560-150l-t414-jc1343e417r1 v34g7r88-v105-342w-r296-gk1453l660l2 ANSI-Commercial 07105i8x-62gl-668p-63l9-74rf5876578b 45854z2u-40hu-810u-19y3-90rb1055607l ANSI-Commercial 7872334m-6362-5495-d4o3-1p63163yr54t 1365384l-9895-0274-h7h2-4e66765of45o ANSI-Commercial [id number] ANSI-Medicaid [id number] ANSI-Medicaid [id number] ANSI-Medicaid [id number] ANSI-Commercial [id number] ANSI-Commercial [id number] ANSI-Medicaid [id number] ANSI-Medicaid [id number] ANSI-Commercial [id number] ANSI-Commercial [id number] [facility]-Medicaid [id number] [facility] [id number] ANSI-Commercial [id number] [facility]-Medicaid [id number] ANSI-Commercial [id number] ANSI-Commercial [id number] ANSI-Medicaid [id number] ANSI-Commercial [id number] [facility]-Medicaid [id number] ANSI-Medicaid [id number] ANSI-Commercial [id number] ANSI-S[employer] [id number] ANSI-Medicaid [id number] ANSI-Commercial [id number] ANSI-Commercial [id number] [facility]-Medicaid [id number] [facility]-Medicaid [id number] [facility]-Medicaid [id number] [facility] [id number] [facility]-Medicaid [id number] Problems, Conditions, and Diagnoses Code Display Name Description Problem Type Effective Dates Data Source(s) I89.0 237733009 Lymphedema Problem 09/10/2020 12:00:00 AM ES T eCW1 ([facility]) M81.0 75290464 Age-related osteoporosis without current pathological fracture Problem 07/09/2020 12:00:00 AM EDT eCW1 ([facility]) 922557809 Chronic diastolic heart failure Chronic diastoli c heart failure Problem 04/02/2020 12:00:00 AM EDT [facility] ([facility]) 124643203 Edema Edema Problem 04/02/2020 12:00:00 AM ED T [facility] ([facility]) 955892017 Electrocardiogram abnormal Electrocardiogram abnormal Problem 04/02/2020 12:00:00 AM EDT [facility] ([facility]) 139898502 Dietary management surveillance Dietary manageme nt surveillance Problem 04/02/2020 12:00:00 AM EDT [facility] ([facility]) 430603628 Paroxysmal atrial fibrillation Paroxysmal atrial fibri llation Problem 04/02/2020 12:00:00 AM EDT [facility] ([facility]) I50.32 Chronic diastolic heart failure Chronic diastolic hear t failure Problem 12/07/2019 12:00:00 AM EDT eCW1 ([facility]) J31.0 70548499 Chronic rhinitis Problem 12/07/2019 12:00:00 AM EDT eCW1 ([facility]) J31.0 88234039 Chronic rhinitis Problem 12/07/2019 12:00:00 AM EDT eCW1 ([facility]) I50.32 Chronic diastolic heart failure Chronic diastolic hear t failure Problem 12/07/2019 12:00:00 AM EDT eCW1 ([facility]) J96.11 946721670 Chronic respiratory failure with hypoxia Problem 09/23/2019 12:00:00 AM EST eCW1 ([facility]) D73.1 52518646 Hypersplenism Problem 09/23/2019 12:00:00 AM EST eCW1 ([facility]) D61.818 888950409 Pancytopenia Problem 09/23/2019 12:00:00 AM EST eCW1 ([facility]) I48.91 81581838 Atrial fibrillation, unspecified type Pro blem 09/23/2019 12:00:00 AM EST eCW1 ([facility]) Z87.01 949755360 Hx of bacterial pneumonia Problem 09/23/2019 12:00:00 AM EST eCW1 ([facility]) Z87.19 578777806 H/O: UGI bleed Problem 09/23/2019 12:00:00 A M EST eCW1 ([facility]) J96.11 962887654 Chronic respiratory failure with hypoxia Problem 09/23/2019 12:00:00 AM EST eCW1 ([facility]) D73.1 29685227 Hypersplenism Problem 09/23/2019 12:00:00 AM EST eCW1 ([facility]) D61.818 330793217 Pancytopenia Problem 09/23/2019 12:00:00 AM EST eCW1 ([facility]) I48.91 55075766 Atrial fibrillation, unspecified type Pro blem 09/23/2019 12:00:00 AM EST eCW1 ([facility]) Z87.01 158826193 Hx of bacterial pneumonia Problem 09/23/2019 12:00:00 AM EST eCW1 ([facility]) Z87.19 416527659 H/O: UGI bleed Problem 09/23/2019 12:00:00 A M EST eCW1 ([facility]) Surgeries/Procedures Procedure Description Date Indications Data Source(s) Immunization: Flublok Quadrivalent (18 years & older) 0.5mL IM (Influenza) 07/09/2020 12:00:00 AM EDT eCW1 ([facility]) ECG ROUTINE ECG W/LEAST 12 LDS W/I&R 04/02/2020 12:00: 00 AM EDT [facility] ([facility]) Results ID Date Data Source Basic Metabolic Profile (BMP) 10/15/2020 12:00:00 AM EST eCW 1 ([facility]) Name Value Range Interpretation Code Description Data Skyla rce(s) Supporting Document(s) 15 7-18 BLOOD UREA NITROGEN eCW1 ([facility]) 0.72 0.55-1.30 CREATININE FOR GFR eCW1 ([facility]) 91 70-100 GLUCOSE, FASTING eCW1 ([facility]) > 60.0 >45 GLOMERULAR FILTRATION RATE eCW 1 ([facility]) 111 98-107 CHLORIDE LEVEL eCW1 ([facility]) 145 136-145 SODIUM LEVEL eCW1 (Replaced by [facility]) 4.4 3.5-5.1 POTASSIUM SERUM eCW1 ([facility]) 28 21-32 CARBON DIOXIDE LEVEL eCW1 ([facility]) 9.0 8.8-10.2 CALCIUM LEVEL eCW1 ([facility]) ID Date Data Source CBC with Differential 10/15/2020 12:00:00 AM EST eCW1 ([facility]) Name Value Range Interpretation Code Description Data Skyla rce(s) Supporting Document(s) 3.24 4.00-5.40 RED BLOOD COUNT eCW1 ([facility]) 3.1 4.0-10.0 WHITE BLOOD COUNT eCW1 ([facility]) 34.6 36.0-47.0 HEMATOCRIT eCW1 ([facility]) 31.8 27.0-33.0 MEAN CORPUSCULAR HEMOGLOB IN eCW1 ([facility]) 106.8 80.0-96.0 MEAN CORPUSCULAR VOLUME e CW1 ([facility]) 10.3 12.0-15.5 HEMOGLOBIN eCW1 ([facility]) 19.3 11.5-14.5 RED CELL DISTRIBUTION WID TH eCW1 ([facility]) 64.9 36.0-66.0 NEUTROPHILS % eCW1 ([facility]) 29.8 32.0-36.5 MEAN CORPUSCULAR HGB CONC eCW1 ([facility]) 48 150-450 PLATELET COUNT, AUTOMATED eCW1 ([facility]) 9.6 0.0-3.0 EOS % eCW1 ([facility]) 0.3 0.0-1.0 BASO % eCW1 ([facility]) 18.5 24.0-44.0 LYMPH % eCW1 ([facility]) 6.4 0.0-5.0 MONO % eCW1 ([facility]) 0.3 0.0-0.5 EOS # eCW1 ([facility]) 2.0 1.5-8.5 NEUTROPHILS # eCW1 ([facility]) 0.6 1.5-5.0 LYMPH # eCW1 ([facility]) 0.2 0.0-0.8 MONO # eCW1 ([facility]) 0.0 0.0-0.2 BASO # eCW1 ([facility]) ID Date Data Source [id number] 10/01/2020 10:21:00 PM EST [facility] Name Value Range Interpretation Code Description Data Skyla rce(s) Supporting Document(s) SARS coronavirus 2 RNA [Presence] in Res piratory specimen by CHARLES with probe detection NEGATIVE [facility] This lab was ordered by [facility] a nd reported by [facility]. ID Date Data Source [id number] 10/01/2020 01:17:00 PM EST [facility] ([facility]) Name Value Range Interpretation Code Description Data Skyla rce(s) Supporting Document(s) White Blood Count 1.9 4.0-10.0 [facility] ([facility]) Platelets 43 150-450 [facility] Red Blood Count 3.09 4.00-5.40 [facility] ([facility]) Hemoglobin 9.7 [facility] ([facility]) Hematocrit 31.7 [facility] ([facility]) ID Date Data Source [id number] 10/01/2020 01:17:00 PM EST [facility] ([facility]) Name Value Range Interpretation Code Description Data Skyla rce(s) Supporting Document(s) Calcium [Mass/volume] in Serum or Plasma 8.9 [facility] ([facility]) Sodium 142 [facility] ([facility]) Potassium [Moles/volume] in Serum or Plasma 3.8 [facility] ([facility]) Chloride [Moles/volume] in Serum or Plasma 110 [facility] ([facility]) Carbon dioxide, total [Moles/volume] in Serum or Plasma 28 [facility] ([facility]) Glucose 95 70-100 [facility] ([facility]) Creatinine 0.85 0.55-1.30 [facility] ([facility]) Blood Urea Nitrogen 18 7-18 [facility] ([facility]) Glomerular filtration rate/1.73 sq M.pre dicted [Volume Rate/Area] in Serum or Plasma by Creatinine-based formula (MDRD) Laboratory test result [facility] ([facility]) ID Date Data Source [id number] 09/25/2020 12:54:00 PM EST [facility] Name Value Range Interpretation Code Description Data Skyla rce(s) Supporting Document(s) Calcium [Mass/volume] in Serum or Plasma 8.6 [facility] ([facility]) Sodium 141 [facility] ([facility]) Chloride [Moles/volume] in Serum or Plasma 107 [facility] ([facility]) Carbon dioxide, total [Moles/volume] in Serum or Plasma 31 [facility] ([facility]) Potassium [Moles/volume] in Serum or Plasma 4.1 [facility] ([facility]) Glucose 83 70-100 [facility] ([facility]) Glomerular filtration rate/1.73 sq M.pre dicted [Volume Rate/Area] in Serum or Plasma by Creatinine-based formula (MDRD) Laboratory test result [facility] ([facility]) Creatinine 0.69 0.55-1.30 [facility] ([facility]) Blood Urea Nitrogen 19 7-18 [facility] ([facility]) ID Date Data Source [id number] 09/25/2020 12:54:00 PM EST [facility] ([facility]) Name Value Range Interpretation Code Description Data Skyla rce(s) Supporting Document(s) Troponin Laboratory test result [facility] ([facility]) Natriuretic peptide.B prohormone N-Terminal [Mass/volu me] in Serum or Plasma 95 [facility] ([facility]) ID Date Data Source [id number] 09/25/2020 12:54:00 PM EST [facility] ([facility]) Name Value Range Interpretation Code Description Data Skyla rce(s) Supporting Document(s) White Blood Count 1.7 4.0-10.0 [facility] ([facility]) Red Blood Count 3.03 4.00-5.40 [facility] ([facility]) Platelets 36 150-450 [facility] ([facility]) Hemoglobin 9.2 [facility] ([facility]) Hematocrit 31.9 [facility] ([facility]) ID Date Data Source [id number] 09/19/2020 10:41:00 PM EST [facility] Name Value Range Interpretation Code Description Data Skyla rce(s) Supporting Document(s) SARS coronavirus 2 RNA [Presence] in Res piratory specimen by CHARLES with probe detection NEGATIVE [facility] This lab was ordered by [facility] a nd reported by [facility]. ID Date Data Source LACTIC ACID LEVEL, LACTATE 09/10/2020 12:00:00 AM EST eCW1 ( [facility]) Name Value Range Interpretation Code Description Data Skyla rce(s) Supporting Document(s) LACTIC ACID LEVEL, LACTATE eCW 1 ([facility]) ID Date Data Source C REACTIVE PROTEIN QUANTITATIV (At [facility]) 09/10/2020 12:00 :00 AM EST eCW1 ([facility]) Name Value Range Interpretation Code Description Data Skyla rce(s) Supporting Document(s) 0.66 0.00-0.30 C REACTIVE PROTEIN QUANTI TATIV eCW1 ([facility]) ID Date Data Source Comprehensive Metabolic Profile (CMP) 09/10/2020 12:00:00 AM EST eCW1 ([facility]) Name Value Range Interpretation Code Description Data Skyla rce(s) Supporting Document(s) 82 70-100 GLUCOSE, FASTING eCW1 ([facility]) 14 7-18 BLOOD UREA NITROGEN eCW1 ([facility]) 0.78 0.55-1.30 CREATININE FOR GFR eCW1 ([facility]) 4.1 3.5-5.1 POTASSIUM SERUM eCW1 ([facility]) 139 136-145 SODIUM LEVEL eCW1 (Replaced by [facility]) > 60.0 >45 GLOMERULAR FILTRATION RATE eCW 1 ([facility]) 108 98-107 CHLORIDE LEVEL eCW1 ([facility]) 9.0 8.8-10.2 CALCIUM LEVEL eCW1 ([facility]) 28 21-32 CARBON DIOXIDE LEVEL eCW1 ([facility]) 113 45-117 ALKALINE PHOSPHATASE eCW1 ([facility]) 18 12-78 ALT/SGPT eCW1 ([facility]) 31 7-37 AST/SGOT eCW1 ([facility]) 3.2 3.2-5.2 ALBUMIN eCW1 ([facility]) 5.9 6.4-8.2 TOTAL PROTEIN eCW1 ([facility]) 1.0 0.2-1.0 BILIRUBIN,TOTAL eCW1 ([facility]) 1.2 1.2-2.2 ALBUMIN/GLOBULIN RATIO eCW1 ([facility]) ID Date Data Source [id number] 03/21/2020 02:19:00 PM EDT [facility] ([facility]) Name Value Range Interpretation Code Description Data Skyla rce(s) Supporting Document(s) Calcium [Mass/volume] in Serum or Plasma 9.0 [facility] ([facility]) Albumin [Mass/volume] in Serum or Plasma 3.0 [facility] ([facility]) Alanine aminotransferase [Enzymatic activity/volume] in Serum or Pl asma 21 [facility] ([facility]) Chloride [Moles/volume] in Serum or Plasma 113 [facility] ([facility]) Carbon dioxide, total [Moles/volume] in Serum or Plasma 25 [facility] ([facility]) Potassium [Moles/volume] in Serum or Plasma 3.8 [facility] ([facility]) Alkaline phosphatase [Enzymatic activity/volume] in Serum or Plasma 1 02 [facility] ([facility]) Protein [Mass/volume] in Serum or Plasma 5.8 [facility] ([facility]) Sodium 143 [facility] ([facility]) Aspartate aminotransferase [Enzymatic activity/volume] in Serum or Plasma 27 [facility] ([facility]) Creatinine For GFR 0.72 MED[facility] ([facility]) Urea nitrogen [Mass/volume] in Serum or Plasma 18 [facility] ([facility]) Glucose 97 70-100 [facility] ([facility]) ID Date Data Source [id number] 03/21/2020 02:19:00 PM EDT [facility] ([facility]) Name Value Range Interpretation Code Description Data Skyla rce(s) Supporting Document(s) White Blood Count 3.7 4.0-10.0 [facility] ([facility]) Red Blood Count 3.96 4.00-5.40 [facility] ([facility]) Hemoglobin 13.1 [facility] ([facility]) Platelets 61 150-450 [facility] ([facility]) Hematocrit 39.9 [facility] ([facility]) ID Date Data Source [id number] 02/13/2020 09:38:00 AM EDT MEDENT ([facility], ) Name Value Range Interpretation Code Description Data Skyla rce(s) Supporting Document(s) Hepatitis A virus IgG Ab [Units/volume] in Serum Laboratory test result Abnormal (applies to non-numeric results) [facility]) Performed at: RN - [facility] [address] [id number] [employer] Operator: Selene Garrido MD, Phone: [phone] Hepatitis B virus surface Ab [Presence] in Serum by [facility] Laboratory test result Normal (applies to non-numeric results) [facility] ([facility]) Lxiha-1-Blhipkkjaxk [Mass/volume] in Serum or Plasma 4.4 ng/mL Normal (applies to non-numeric results) [facility]) THE AFP ASSAY IS PERFORMED ON THE [employer] BY CHEMILUMINESCENCE AND SHOULD NOT BE COMPARED [...] % 0.0-9.59 Normal (applies to non-numeric results) [facility]) ID Date Data Source [id number] 02/13/2020 09:38:00 AM EDT [facility]) Name Value Range Interpretation Code Description Data Skyla rce(s) Supporting Document(s) Creatinine For GFR 0.74 mg/dL 0.55-1.30 Normal (applies to non -numeric results) [facility] ([facility]) Glomerular Filtration Rate Laboratory test result Normal (applies to non- numeric results) [facility]) <content>Units are mL/min/1.73 m2</content>
<content></content>
<content>Chronic Kidney Disease Staging per NKF:</content>
<content></content>
<content>Stage I & II GFR >=60 Normal to Mildly Decreased</content>
<content>Stage III GFR 30- 59 Moderately Decreased</content>
<content>Stage IV GFR 15-29 Severely Decreased</content>
<content>Stage V GFR <15 Very Little GFR Left</content>
<content>ESRD GFR <15 on LEAD SECURITY OFFICER</content>
<content></content> ID Date Data Source [id number] 02/13/2020 09:38:00 AM EDT [facility]) Name Value Range Interpretation Code Description Data Skyla rce(s) Supporting Document(s) Urea nitrogen [Mass/volume] in Serum or Plasma 17 mg/dL 7 -18 Normal (applies to non-numeric results) [facility]) ID Date Data Source [id number] 02/13/2020 09:38:00 AM EDT [facility]) Name Value Range Interpretation Code Description Data Skyla rce(s) Supporting Document(s) Inr 1.22 Normal (applies to non-numeric resul ts) [facility]) THERAPUTIC HUMAN INR VALUES INDICATIONS NORMAL RANGES PROPHYLAXIS/TREATMENT OF: VENOUS THROMBOSIS 2.0-3.0 PULMONARY EMBOLISM 2.0-3.0 PREVENTION OF SYSTEMIC EMBOLISM FROM: TISSUE HEART VALVES 2.0-3.0 ACUTE MYOCARDIAL INFARCTION 2.0-3.0 VALVULAR HEART DISEASE 2.0-3.0 ATRIAL FIBRILLATION 2.0-3.0 MECHANICAL VALVES(HIGH RISK) 2.5-3.5 RECURRENT MYOCARDIAL INFARCTION 2.5-3.5 Prothrombin Time 15.1 s 11.8-14.0 Above high normal M [facility]) Partial Thromboplastin Time 30.4 s 25.0-38.4 Norm al (applies to non-numeric results) [facility]) ID Date Data Source [id number] 02/13/2020 09:38:00 AM EDT [facility]) Name Value Range Interpretation Code Description Data Skyla rce(s) Supporting Document(s) Total Iron Binding Capacity 345 ug/dL 250-450 Norm al (applies to non-numeric results) [facility]) Iron (Fe) 127 ug/dL 50-170 Normal (applies to non-numeric resul ts) [facility]) Percent Saturation 36.8 % 13.2-45.0 Normal (applies to non-numer ic results) [facility] ([facility]) ID Date Data Source [id number] 02/13/2020 09:38:[address] [facility] ([facility]) Name Value Range Interpretation Code Description Data Skyla rce(s) Supporting Document(s) Ferritin [Mass/volume] in Serum or Plasma 19 ng/mL 8-252 Normal (applies to non- numeric results) [facility] ([facility]) ID Date Data Source [id number] 02/13/2020 09:38:[address] [facility] ([facility]) Name Value Range Interpretation Code Description Data Skyla rce(s) Supporting Document(s) Red Blood Count 4.17 10 4.00-5.40 Normal (applies to non-numeric results) [facility] ([facility]) White Blood Count 3.4 10 4.0-10.0 Below low [facility] Hemoglobin 13.2 g/dL 12.0-15.5 Normal (applies to non-numeric resul ts) [facility] ([facility]) Mean Corpuscular Hemoglobin 31.7 pg 27.0-33.0 Norm al (applies to non-numeric results) [facility] ([facility]) Hematocrit 41.2 % 36.0-47.0 Normal (applies to non-numeric resul ts) [facility]) Mean Corpuscular Volume 98.8 fl 80.0-96.[address] [facility] ([facility]) Platelet Count, Automated 63 10 150-[address] [facility] ([facility]) Mean Corpuscular HGB Conc 32.0 g/dL 32.0-36.5 Normal (applies to non-numeric results) [facility] ([facility]) Red Cell Distribution Width 14.6 % 11.5-14.[address] [facility] ([facility]) Eos % 5.7 % 0.0-3.[address] [facility] ([facility]) Bulloch % 6.5 % 0.0-5.[address] [facility] ([facility] ) Lymph % 20.2 % 24.0-44.0 Below low normal [facility] ( [facility]) Neutrophils % 67.0 % 36.0-66.0 Above high normal [facility] ([facility]) Nucleated Red Blood Cell % 0.0 % 0-0 Normal (applies to n on-numeric results) [facility] ([facility]) Immature Granulocyte % 0.3 % 0-3.0 Normal (applies to non-n umeric results) [facility] ([facility]) Baso % 0.3 % 0.0-1.0 Normal (applies to non-numeric resul ts) [facility] ([facility]) Lymph # 0.7 10 1.5-5.0 Below low normal [facility] HOSPITALENT ( [facility]) Eos # 0.2 10 0.0-0.5 Normal (applies to non-numeric resul ts) MEDENT ([facility]) Bulloch # 0.2 10 0.0-0.8 Normal (applies to non-numeric resul ts) [facility] ([facility]) Neutrophils # 2.3 10 1.5-8.5 Normal (applies to non-numeric re sults) [facility] ([facility]) Baso # 0.0 10 0.0-0.2 Normal (applies to non-numeric resul ts) [facility] ([facility]) ID Date Data Source [id number] 10/10/2019 02:04:00 PM EST MEDENT ([facility]) Name Value Range Interpretation Code Description Data Skyla rce(s) Supporting Document(s) Tduxs-2-[id number] [Mass/volume] in Serum or Plasma 4.4 ng/mL Normal (applies to non-numeric results) [facility] ([facility]) THE AFP ASSAY IS PERFORMED ON THE [employer] BY CHEMILUMINESCENCE AND SHOULD NOT BE COMPARED [...] % 0.0-9.59 Normal (applies to non-numeric results) [facility] ([facility]) Blood group antibodies identified in Serum or Plasma Laboratory test result Normal (applies to non-numeric results) [facility]) ID Date Data Source [id number] 10/10/2019 02:04:00 PM EST [facility]) Name Value Range Interpretation Code Description Data Skyla rce(s) Supporting Document(s) Prothrombin Time 14.6 s 11.8-14.0 Above high [facility] Partial Thromboplastin Time 29.7 s 25.0-38.4 Norm al (applies to non-numeric results) [facility] ([facility]) Inr 1.17 Normal (applies to non-numeric resul ts) [facility]) THERAPUTIC HUMAN INR VALUES INDICATIONS NORMAL RANGES PROPHYLAXIS/TREATMENT OF: VENOUS THROMBOSIS 2.0-3.0 PULMONARY EMBOLISM 2.0-3.0 PREVENTION OF SYSTEMIC EMBOLISM FROM: TISSUE HEART VALVES 2.0-3.0 ACUTE MYOCARDIAL INFARCTION 2.0-3.0 VALVULAR HEART DISEASE 2.0-3.0 ATRIAL FIBRILLATION 2.0-3.0 MECHANICAL VALVES(HIGH RISK) 2.5-3.5 RECURRENT MYOCARDIAL INFARCTION 2.5-3.5 ID Date Data Source [id number] 10/10/2019 02:04:00 PM EST [facility]) Name Value Range Interpretation Code Description Data Skyla rce(s) Supporting Document(s) Blood Type Laboratory test result Normal (applies to non-n umeric results) [facility]) Blood group antibody screen [Presence] in Serum or Prasad sma Laboratory test result Normal (applies to non-numeric results) [facility]) ID Date Data Source [id number] 10/10/2019 02:04:00 PM EST [facility]) Name Value Range Interpretation Code Description Data Skyla rce(s) Supporting Document(s) Glomerular Filtration Rate Laboratory test result Normal (applies to non- numeric results) [facility]) <content>Units are mL/min/1.73 m2</content>
<content></content>
<content>Chronic Kidney Disease Staging per NKF:</content>
<content></content>
<content>Stage I & II GFR >=60 Normal to Mildly Decreased</content>
<content>Stage III GFR 30- 59 Moderately Decreased</content>
<content>Stage IV GFR 15-29 Severely Decreased</content>
<content>Stage V GFR <15 Very Little GFR Left</content>
<content>ESRD GFR <15 on [employer]</content>
<content></content> Creatinine For GFR 0.83 mg/dL 0.55-1.30 Normal (applies to non -numeric results) [facility]) ID Date Data Source [id number] 10/10/2019 02:04:[address] [facility] ([facility]) Name Value Range Interpretation Code Description Data Skyla rce(s) Supporting Document(s) Urea nitrogen [Mass/volume] in Serum or Plasma 17 mg/dL 7 -18 Normal (applies to non-numeric results) [facility] ([facility]) ID Date Data Source [id number] 10/10/2019 02:04:00 PM EST [facility]) Name Value Range Interpretation Code Description Data Skyla rce(s) Supporting Document(s) White Blood Count 4.0 10 4.0-10.0 Normal (applies to non-numeri c results) [facility] ([facility]) Red Blood Count 4.00 10 4.00-5.40 Normal (applies to non-numeric results) [facility] ([facility]) Mean Corpuscular Volume 90.3 fl 80.0-96.0 Normal ( applies to non-numeric results) [facility] ([facility]) Hemoglobin 10.1 g/dL 12.0-15.[address] [facility] ( [facility]) Hematocrit 36.1 % 36.0-47.0 Normal (applies to non-numeric resul ts) [facility] ([facility]) Red Cell Distribution Width 18.3 % 11.5-14.5 Above high normal [facility] ([facility]) Mean Corpuscular Hemoglobin 25.3 pg 27.0-33.0 Below low normal [facility] ([facility]) Mean Corpuscular HGB Conc 28.0 g/dL 32.0-36.5 Below low normal [facility] ([facility]) Platelet Count, Automated 85 10 150-450 Below low normal [facility] ([facility]) Lymph % 26.1 % 24.0-44.0 Normal (applies to non-numeric resul ts) [facility] ([facility]) Neutrophils % 63.6 % 36.0-66.0 Normal (applies to non-numeric re sults) [facility] ([facility]) Bulloch % 5.5 % 0.0-5.0 Above high normal [facility] ([facility]) Baso % 0.5 % 0.0-1.0 Normal (applies to non-numeric resul ts) [facility] ([facility]) Nucleated Red Blood Cell % 0.0 % 0-0 Normal (applies to n on-numeric results) [facility] ([facility]) Eos % 4.0 % 0.0-3.0 Above high normal MED[facility] ([facility]) Immature Granulocyte % 0.3 % 0-3.0 Normal (applies to non-n umeric results) [facility] ([facility]) Neutrophils # 2.5 10 1.5-8.5 Normal (applies to non-numeric re sults) [facility] ([facility]) Bulloch # 0.2 10 0.0-0.8 Normal (applies to non-numeric resul ts) [facility] ([facility]) Lymph # 1.0 10 1.5-5.0 Below low normal [facility] ( [facility]) Baso # 0.0 10 0.0-0.2 Normal (applies to non-numeric resul ts) [facility] ([facility]) Eos # 0.2 10 0.0-0.5 Normal (applies to non-numeric resul ts) [facility] ([facility]) Procedure Social History Code Duration Value Status Description Data Source(s ) Smoking 10/15/2020 12:00:00 AM EST Never Smoker completed Never S moker eCW1 ([facility]) Smoking 10/15/2020 12:00:00 AM EST Never Smoker completed Never S moker eCW1 ([facility]) Smoking 10/15/2020 12:00:00 AM EST Never Smoker completed Never S moker eCW1 ([facility]) Smoking 10/15/2020 12:00:00 AM EST Never Smoker completed Never S moker eCW1 ([facility]) Smoking 09/10/2020 12:00:00 AM EST Never Smoker completed Never S moker eCW1 ([facility]) Smoking 09/10/2020 12:00:00 AM EST Never Smoker completed Never S moker eCW1 ([facility]) Smoking 09/10/2020 12:00:00 AM EST Never Smoker completed Never S moker eCW1 ([facility]) Smoking 09/10/2020 12:00:00 AM EST Never Smoker completed Never S moker eCW1 ([facility]) Smoking 09/10/2020 12:00:00 AM EST Never Smoker completed Never S moker eCW1 ([facility]) Smoking 09/10/2020 12:00:00 AM EST Never Smoker completed Never S moker eCW1 ([facility]) Smoking 08/21/2020 12:00:00 AM EST Never Smoker completed Never S moker eCW1 ([facility]) Smoking 08/21/2020 12:00:00 AM EST Never Smoker completed Never S moker eCW1 ([facility]) Smoking 08/21/2020 12:00:00 AM EST Never Smoker completed Never S moker eCW1 ([facility]) Smoking 08/21/2020 12:00:00 AM EST Never Smoker completed Never S moker eCW1 ([facility]) Smoking 07/09/2020 12:00:00 AM EDT Never Smoker completed Never S moker eCW1 ([facility]) Smoking 07/09/2020 12:00:00 AM EDT Never Smoker completed Never S moker eCW1 ([facility]) Smoking 07/09/2020 12:00:00 AM EDT Never Smoker completed Never S moker eCW1 ([facility]) Smoking 07/09/2020 12:00:00 AM EDT Never Smoker completed Never S moker eCW1 ([facility]) Smoking 04/02/2020 12:00:00 AM EDT Patient has never smoked co mpleted Patient has never smoked [facility] ([facility]) Smoking 03/21/2020 12:00:00 AM EDT Never Smoker completed Never S moker eCW1 ([facility]) Smoking 03/21/2020 12:00:00 AM EDT Never Smoker completed Never S moker eCW1 ([facility]) Smoking 03/21/2020 12:00:00 AM EDT Never Smoker completed Never S moker eCW1 ([facility]) Smoking 02/15/2020 12:00:00 AM EDT Never Smoker completed Never S moker eCW1 ([facility]) Smoking 02/15/2020 12:00:00 AM EDT Never Smoker completed Never S moker eCW1 ([facility]) Vital Signs ID Date Data Source UNK Name Value Range Interpretation Code Description Data Source(s) Diastolic blood pressure 64 mm[Hg] 64 mm[Hg] eCW1 ([facility]) Systolic blood pressure 110 mm[Hg] 110 mm[Hg] e CW1 ([facility]) Body temperature 96.8 [degF] 96.8 [degF] eCW1 ( [facility]) Respiratory rate 20 /min 20 /min eCW1 ([facility]) Heart rate 67 /min 67 /min eCW1 ([facility]) Body mass index (BMI) [Ratio] 64.19 kg/m2 64.19 kg/m2 eCW1 ([facility]) Body height 64 [in_i] 64 [in_i] eCW1 ([facility]) Body weight 374 [lb_av] 374 [lb_av] eCW1 ([facility]) Diastolic blood pressure 70 mm[Hg] 70 mm[Hg] eCW1 ([facility]) Systolic blood pressure 98 mm[Hg] 98 mm[Hg] e CW1 ([facility]) Body mass index (BMI) [Ratio] 64.53 kg/m2 64.53 kg/m2 eCW1 ([facility]) Body height 64 [in_i] 64 [in_i] eCW1 ([facility]) Body weight 376 [lb_av] 376 [lb_av] eCW1 ([facility]) Diastolic blood pressure 68 mm[Hg] 68 mm[Hg] eCW1 ([facility]) Systolic blood pressure 110 mm[Hg] 110 mm[Hg] e CW1 ([facility]) Body temperature 96.6 [degF] 96.6 [degF] eCW1 ( [facility]) Respiratory rate 20 /min 20 /min eCW1 ([facility]) Heart rate 73 /min 73 /min eCW1 ([facility]) Body mass index (BMI) [Ratio] 64.53 kg/m2 64.53 kg/m2 eCW1 ([facility]) Body height 64 [in_i] 64 [in_i] eCW1 ([facility]) Body weight 376 [lb_av] 376 [lb_av] eCW1 ([facility]) Diastolic blood pressure 78 mm[Hg] 78 mm[Hg] eCW1 ([facility]) Systolic blood pressure 130 mm[Hg] 130 mm[Hg] e CW1 ([facility]) Body temperature 96.3 [degF] 96.3 [degF] eCW1 ( [facility]) Respiratory rate 20 /min 20 /min eCW1 ([facility]) Heart rate 99 /min 99 /min eCW1 ([facility]) Body mass index (BMI) [Ratio] 62.82 kg/m2 62.82 kg/m2 eCW1 ([facility]) Body height 64 [in_i] 64 [in_i] eCW1 ([facility]) Body weight 366 [lb_av] 366 [lb_av] eCW1 ([facility]) Diastolic blood pressure 76 mm[Hg] 76 mm[Hg] eCW1 ([facility]) Systolic blood pressure 130 mm[Hg] 130 mm[Hg] e CW1 ([facility]) Body temperature 96.9 [degF] 96.9 [degF] eCW1 ( [facility]) Respiratory rate 20 /min 20 /min eCW1 ([facility]) Heart rate 67 /min 67 /min eCW1 ([facility]) Body mass index (BMI) [Ratio] 61.10 kg/m2 61.10 kg/m2 eCW1 ([facility]) Body height 64 [in_i] 64 [in_i] eCW1 ([facility]) Body weight 356 [lb_av] 356 [lb_av] eCW1 ([facility]) Body weight 149.[address] [facility] ([facility], ) Body mass index (BMI) [Ratio] 56.6 kg/m2 56.6 k g/m2 [facility] ([facility], ) Body weight 330.00 [lb_av] 330.00 [lb_av] MEDEN T ([facility], ) Body height 64 [in_i] 64 [in_i] [facility] ([facility], ) 5'4" Oxygen saturation in Arterial blood by Pulse oximetry 89 % 89 % [facility] ([facility], ) 96 2L Heart rate 60 /min 60 /min [facility] ([facility], ) Diastolic blood pressure 66 mm[Hg] 66 mm[Hg] [facility] ([facility], ) Systolic blood pressure 108 mm[Hg] 108 mm[Hg] [facility] ([facility], ) Diastolic blood pressure 68 mm[Hg] 68 mm[Hg] [facility] sitting, large cuff Systolic blood pressure 126 mm[Hg] 126 mm[Hg] [facility] sitting, large cuff Respiratory rate 16 /min 16 /min MED[facility] ( [facility]) Heart rate 72 /min 72 /min [facility] ([facility] Regular Body mass index (BMI) [Ratio] 56.6 kg/m2 56.6 k g/m2 [facility] ([facility]) Body height 64 [in_i] 64 [in_i] [facility] ([facility] 5'4" Body weight 330.00 [lb_av] 330.00 [lb_av] MEDEN T ([facility]) Diastolic blood pressure 76 mm[Hg] 76 mm[Hg] eCW1 ([facility]) Systolic blood pressure 128 mm[Hg] 128 mm[Hg] e CW1 ([facility]) Body temperature 97.1 [degF] 97.1 [degF] eCW1 ( [facility]) Respiratory rate 20 /min 20 /min eCW1 ([facility]) Heart rate 66 /min 66 /min eCW1 ([facility]) Body mass index (BMI) [Ratio] 60.76 kg/m2 60.76 kg/m2 eCW1 ([facility]) Body height 64 [in_i] 64 [in_i] eCW1 ([facility]) Body weight 354.0 [lb_av] 354.0 [lb_av] eCW1 ([facility]) Body weight 162.842 kg 162.842 kg [facility] ([facility], ) Body mass index (BMI) [Ratio] 61.6 kg/m2 61.6 k g/m2 MED[facility] ([facility], ) Body weight 359.00 [lb_av] 359.00 [lb_av] MEDEN T ([facility], ) Body height 64 [in_i] 64 [in_i] MED[facility] ([facility], ) 5'4" Diastolic blood pressure 74 mm[Hg] 74 mm[Hg] MEDENT ([facility], ) Systolic blood pressure 132 mm[Hg] 132 mm[Hg] M EDENT ([facility], ) Diastolic blood pressure 70 mm[Hg] 70 mm[Hg] eCW1 ([facility]) Systolic blood pressure 136 mm[Hg] 136 mm[Hg] e CW1 ([facility]) Body temperature 96.8 [degF] 96.8 [degF] eCW1 ( [facility]) Respiratory rate 20 /min 20 /min eCW1 ([facility]) Heart rate 75 /min 75 /min eCW1 ([facility]) Body mass index (BMI) [Ratio] 61.10 kg/m2 61.10 kg/m2 eCW1 ([facility]) Body height 64 [in_i] 64 [in_i] eCW1 ([facility]) Body weight 356 [lb_av] 356 [lb_av] eCW1 ([facility]) Diastolic blood pressure 72 mm[Hg] 72 mm[Hg] eCW1 ([facility]) Systolic blood pressure 132 mm[Hg] 132 mm[Hg] e CW1 ([facility]) Body temperature 96.5 [degF] 96.5 [degF] eCW1 ( [facility]) Respiratory rate 20 /min 20 /min eCW1 ([facility]) Heart rate 70 /min 70 /min eCW1 ([facility]) Body mass index (BMI) [Ratio] 59.21 kg/m2 59.21 kg/m2 eCW1 ([facility]) Body height 64 [in_us] 64 [in_us] eCW1 ([facility]) Body weight Measured 345 [lb_av] 345 [lb_av] eC W1 ([facility]) Body weight 155.585 kg 155.585 kg MEDENT ([facility], ) Body mass index (BMI) [Ratio] 58.9 kg/m2 58.9 k g/m2 MED[facility] ([facility], ) Body weight 343.00 [lb_av] 343.00 [lb_av] MEDEN T ([facility], ) Body height 64 [in_i] 64 [in_i] MEDENT ([facility], ) 5'4" Diastolic blood pressure 78 mm[Hg] 78 mm[Hg] [facility] Systolic blood pressure 126 mm[Hg] 126 mm[Hg] M EDENT ([facility]) Body weight 148.[address] [facility] ([facility]) Body mass index (BMI) [Ratio] 56.1 kg/m2 56.1 k g/m2 [facility] ([facility]) Body weight 327.00 [lb_av] 327.00 [lb_av] MEDEN T ([facility]) Body height 64 [in_i] 64 [in_i] MEDENT ([facility]) 5'4" Body temperature 96.8 [degF] 96.8 [degF] [facility] ([facility]) Diastolic blood pressure 76 mm[Hg] 76 mm[Hg] [facility] Systolic blood pressure 113 mm[Hg] 113 mm[facility]Hg[facility] Diastolic blood pressure 74 mm[Hg] 74 mm[Hg] eCW1 ([facility]) Systolic blood pressure 136 mm[Hg] 136 mm[Hg] e CW1 ([facility]) Body temperature 98.2 [degF] 98.2 [degF] eCW1 ( [facility]) Respiratory rate 22 /min 22 /min eCW1 ([facility]) Heart rate 71 /min 71 /min eCW1 ([facility]) Body mass index (BMI) [Ratio] 58.87 kg/m2 58.87 kg/m2 eCW1 ([facility]) Body height 64 [in_us] 64 [in_us] eCW1 ([facility]) Body weight Measured 343 [lb_av] 343 [lb_av] eC W1 ([facility]) Patient Treatment Plan of Care Planned Activity Planned Date Details Description Data Source (s) Cephalexin 500 MG Oral Capsule [Keflex] 09/10/2020 12:00:00 AM EST eCW1 ([facility]) Cephalexin 500 MG Oral Capsule [Keflex] 09/10/2020 12:00:00 AM EST eCW1 ([facility]) Cephalexin 500 MG Oral Capsule [Keflex] 09/10/2020 12:00:00 AM EST eCW1 ([facility]) Cephalexin 500 MG Oral Capsule [Keflex] 09/10/2020 12:00:00 AM EST eCW1 ([facility]) Cephalexin 500 MG Oral Capsule [Keflex] 09/10/2020 12:00:00 AM EST eCW1 ([facility]) apixaban 2.5 MG Oral Tablet [Eliquis] 08/12/2020 12:00:00 AM EST eCW1 ([facility]) apixaban 2.5 MG Oral Tablet [Eliquis] 08/12/2020 12:00:00 AM EST eCW1 ([facility]) apixaban 2.5 MG Oral Tablet [Eliquis] 08/12/2020 12:00:00 AM EST eCW1 ([facility]) apixaban 2.5 MG Oral Tablet [Eliquis] 08/12/2020 12:00:00 AM EST eCW1 ([facility]) apixaban 2.5 MG Oral Tablet [Eliquis] 08/12/2020 12:00:00 AM EST eCW1 ([facility]) apixaban 2.5 MG Oral Tablet [Eliquis] 08/12/2020 12:00:00 AM EST eCW1 ([facility]) Levofloxacin 750 MG Oral Tablet 07/09/2020 12:00:00 AM EDT eCW1 ([facility]) Levofloxacin 750 MG Oral Tablet 07/09/2020 12:00:00 AM EDT eCW1 ([facility]) gabapentin 800 MG Oral Tablet 02/19/2020 12:00:00 AM EDT eCW1 ([facility]) Bisoprolol Fumarate 5 MG Oral Tablet 02/19/2020 12:00:00 AM EDT eCW1 ([facility]) Fluticasone Propionate 50 MCG/ACT 12/07/2019 12:00:00 AM EDT eCW1 ([facility]) Fluticasone Propionate 50 MCG/ACT 12/07/2019 12:00:00 AM EDT eCW1 ([facility]) Spironolactone 25 MG Oral Tablet eCW1 ([facility]
[2020-10-23 20:58] LABS: BASO % 0.8 % (0.0-1.0); EOS # 0.3 10^3/uL (0.0-0.5); EOS % 10.9 % (0.0-3.0); HEMOGLOBIN 11.2 g/dl (12.0-15.5); LYMPH # 0.6 10^3/uL (1.5-5.0); LYMPH % 22.5 % (24.0-44.0); MEAN CORPUSCULAR HEMOGLOBIN 32.4 pg (27.0-33.0); MEAN CORPUSCULAR HGB CONC 30.3 g/dl (32.0-36.5); MEAN CORPUSCULAR VOLUME 106.9 fl (80.0-96.0); MONO # 0.2 10^3/uL (0.0-0.8); MONO % 7.4 % (0.0-5.0); NEUTROPHILS # 1.5 10^3/uL (1.5-8.5); RED BLOOD COUNT 3.46 10^6/uL (4.00-5.40); WHITE BLOOD COUNT 2.6 10^3/uL (4.0-10.0)
[2020-10-23 21:00] LABS: PLATELET COUNT, AUTOMATED 44 10^3/uL (150-450)
[2020-10-23] MEDS ORDERED: VENLAFAXINE **XR** 75MG CAPSULE PO SCH (21:00)
[2020-10-23] MEDS ORDERED: POTASSIUM CHLORIDE 10 MEQ SR TABLET PO SCH (21:00)
[2020-10-23] MEDS ORDERED: traZODone 50 MG TAB PO SCH (21:00)
[2020-10-23 21:14] LABS: BLOOD UREA NITROGEN 18 MG/DL (7-18); CARBON DIOXIDE LEVEL 27 MEQ/L (21-32); CHLORIDE LEVEL 113 MEQ/L (98-107); CREATININE FOR GFR 0.72 MG/DL (0.55-1.30); GLOMERULAR FILTRATION RATE > 60.0 (>45); GLUCOSE, FASTING 77 MG/DL (70-100); POTASSIUM SERUM 3.9 MEQ/L (3.5-5.1); SODIUM LEVEL 146 MEQ/L (136-145)
[2020-10-23 21:16] LABS: ERYTHROCYTE SEDIMENTATION RATE 8 mm/hr (0-30)
[2020-10-23 21:56] LABS: RSV AMPLIFICATION NEGATIVE (NEGATIVE)
--- NOTE | 2020-10-23 21:58 | REPVR ---
PROCEDURE INFORMATION: Exam: US Duplex Left Upper Extremity Veins, Limited Exam date and time: 10/23/2020 8:59 PM Age: 65 years old Clinical indication: Edema, localized; Upper extremity, left; Additional info: Lue redness/swelling, R/O clot TECHNIQUE: Imaging protocol: Real-time Duplex ultrasound of the Left Upper Extremity with 2-D love scale, color Doppler flow and spectral waveform analysis with image documentation. Limited exam focused on the left upper extremity veins. COMPARISON: US PV-Art 09/01/2020 8:54 PM FINDINGS: Left deep veins: Unremarkable. Axillary and brachial veins are patent throughout without thrombus. Normal Doppler waveforms. Normal compressibility and/or augmentation response. Visualized internal jugular and subclavian veins are patent. Left superficial veins: Unremarkable. Visualized cephalic and basilic veins are patent without thrombus. Soft tissues: Unremarkable. IMPRESSION: No evidence of deep vein thrombosis. Electronically signed by: Nilton Perry On 10/23/2020 21:58:21 PM
[2020-10-23] MEDS ORDERED: VANCOMYCIN HCL 2,000 MG in D5W 500 ML IV ONE (22:15)
[2020-10-23] MEDS ORDERED: VANCOMYCIN HCL 1,000 MG, VIAL MATE ADAPTER 1 EACH in D5W 250 ML IV ONE ×6 (22:15)
[2020-10-23] MEDS ORDERED: IPRA0.00 INH (22:16)
[2020-10-23] MEDS ORDERED: OYST500T91 PO (22:16)
[2020-10-23] MEDS ORDERED: IPRATROPIUM 0.5MG/ALBUTEROL 2.5MG INH SOL UD 3ML (DUONEB) INH PRN (23:45)
[2020-10-24] MEDS ORDERED: VANCOMYCIN HCL 1,000 MG, VIAL MATE ADAPTER 1 EACH in D5W 250 ML IV SCH ×3
--- OUTSIDE RECORDS SUMMARY | 2020-10-24 00:10 | CCD ---
Author Author [facility] Organization [facility] Address Unknown Phone Unavailable Care Team Providers Care Production Line Technician Name Role Phone Emiliano Sandoval Unavailable PROBLEMS Type Condition ICD9-CM Code [id number] Code Onset Dates Condition S tatus W/U Status Risk SNOMED Code Notes Problem Lumbago with sciatica, right side M54.41 Active confirmed [id number] Problem Lumbago with sciatica, left side M54.42 Active confirmed 850703410 Problem Insomnia due to medical condition G47.01 Active confirmed 72331599588965 Problem Other chronic pain G89.29 Active confirmed 8 8167661 Problem History of DVT (deep vein thrombosis) Z86.718 Ac tive confirmed 099487388 Problem 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 Active confir med 58892768 Problem H/O: UGI bleed Z87.19 Active confirmed 28792 9007 Problem Hepatic cirrhosis, unspecifi ed hepatic cirrhosis type, unspecified whether ascites present K74.60 Active confirmed 865611 07 Problem LISA (nonalcoholic steatohepatitis) K75.81 Acti ve confirmed 017325578 Problem Chronic congestive heart failure, unspecified he art failure type I50.9 Active confirmed 35561680 Problem Thrombocytopenia D69.6 Active confirmed 415 632009 Problem Recurrent major depressive disorder, in remission F33.40 Active confirmed 55315413 Problem Macrocytosis D75.89 Active confirmed 0312887 00 Problem Nocturnal hypoxemia G47.34 Active confirmed 215472102 Problem Arthralgia of multiple joints M25.50 Active confirm ed 50055593 Problem Mixed stress and urge urinary incontinence N39.46 Active confirmed 135850270 Problem Hx of bacterial pneumonia Z87.01 Active confirmed 651127400 Problem Atrial fibrillation, unspecified type I48.91 Ac tive confirmed 70688980 Problem Pancytopenia D61.818 Active confirmed 709318 005 Problem Age-related osteoporosis without current pathological fracture M81.0 Active confirmed 27323319 Problem Neuropathy G62.9 Active confirmed 536742314 Problem Lymphedema I89.0 Active confirmed 692518763 Problem Acquired hypothyroidism E03.9 Active confirmed 557604966 Problem Chronic gastritis with bleeding, unspecified gastritis typ e K29.51 Active confirmed 4192875 Problem Hypersplenism D73.1 Active confirmed 667585 00 Problem Chronic respiratory failure with hypoxia J96.11 Active confirmed 523369785 Problem Chronic rhinitis J31.0 Active confirmed 860 60933 Problem Chronic diastolic heart failure I50.32 Active confi rmed 599817022 ALLERGIES Allergen (clinical drug ingredient) Drug/Non Drug Allergy do cumented on EMR Reaction Allergy Type Onset Date Status hydromorphone Dilaudid(NDC Code:[address]-30) itching Drug Allerg y Active amoxicillin / clavulanate Augmentin(NDC Code:[address]-57) Diar josette, vomiting Drug Allergy Active seasonal,dust,mold,ragweed,chestnut blossoms, cut g Dy spnea Non Drug Allergy Active naloxone Narcan(NDC Code:[address]-03) seizures and high ly combative Drug Allergy Active pregabalin Lyrica(NDC Code:[address]-83) chest pain and ir regular heartbeat Drug Allergy Active ibuprofen IBU(NDC Code:[address]-69) severe joint and muscle pa in Drug Allergy Active tetracycline Tetracycline HCl(NDC Code:[address]-67) turned teeth yellow Drug Allergy Active codeine Codeine Sulfate(NDC Code:[address]-96) severe chest p ain Drug Allergy Active erythromycin Erythromycin(NDC Code:[address]-07) Vomiting, D iarrhea Drug Allergy Active ENCOUNTERS from 1955 to 2020-10-22 Encounter Location Date Provider Diagnosis [facility] D[facility] [address] [place] [address] Oct, [facility] IMMUNIZATIONS Vaccine Route Administration Date Status Influenza (18 yrs & older) Flublok IM Intramuscular Jul 09, 2020 Administered SOCIAL HISTORY Tobacco Use: Social History Observation Description Date Details (start date - stop date) Never Smoker Sex Assigned At : Social History Observation Description Sex Assigned At Unknown Education: Question Answer Notes Level of Education: College Audit Question Answer Notes Interpretation: Alcohol Education Total Score: 0 Language: Question Answer Notes Languages spoken: Pashto Synagogue: Question Answer Notes Synagogue 99 Other [employer] Domestic Violence: Question Answer Notes Status: Sexual Hx: Question Answer Notes Had sex in the last 12 months (vaginal, oral, or anal)? No LMP: Hyster Have you ever had an STD? Yes Other? Yes Drug and Alcohol Question Answer Notes Interpretation: No problems reported Total Score: 0 Alcohol Screening: Question Answer Notes Did you [...] Information RESULTS No Results REASON FOR VISIT cx suture removal MEDICAL (GENERAL) HISTORY Type Description Date Medical History Hypothyroidism Medical History Ildcq-8-fizppnpzvqq, oxygen dependent - Dr. Tillman Medical History [...] Normocytic anemia, iron defi ciency, thrombocytopenia - [facility] Medical History Hx of seizures - [...] Provider Name:Judi Reynolds, 2020-11-11 02:15:00 PM, [address] [place], [address], Insurance Providers Payer Name Payer Address Payer Phone Insured Name Patient Relati onship to Insured Coverage Start Date Coverage End Date [employer] CORPORATE CLAIMS DEPT [address] [facility] [phone] [id number] SCHMITZ [facility] MEDICAID [employer] [address] [facility] [id number]MITZ
--- OUTSIDE RECORDS SUMMARY | 2020-10-24 00:12 | CCD ---
Author Author [facility] Organization [facility] Address Unknown Phone Unavailable Care Team Providers Care Pr Intern Name Role Phone Renetta Garsia PA Unavailable Unavailable Symenow, Renetta Lau PA Unavailable Unavailable Symenow, Renetta Lau PA Unavailable Unavailable Symenow, Renetta Lau PA Unavailable Unavailable Symenovelma, Renetta Lau PA Unavailable Unavailable SymenowRenetta PA Unavailable Unavailable Symenow, Renetta Lau PA Unavailable Unavailable Symenow, Renetta Lau PA Unavailable Unavailable Symenow, Renetta Lau PA Unavailable Unavailable Symenow, Renetta Judi PA Unavailable Unavailable Symenow, Renetta Lau PA Unavailable Unavailable Symenow, Renetta Bowdene PA Unavailable Unavailable Symenow, Renetta Lau PA [...] Judi PA Unavailable Unavailable QUIROZ, H DEON NIGHT SHIFT SUPERVISOR Unavailable Unavailable QUIROZ, H DEON NIGHT SHIFT SUPERVISOR Unavailable Unavailable QUIROZ, H DEON NIGHT SHIFT SUPERVISOR Unavailable Unavailable QUIROZ, H DEON NIGHT SHIFT SUPERVISOR Unavailable Unavailable QUIROZ, H DEON NIGHT SHIFT SUPERVISOR Unavailable Unavailable QUIROZ, H DEON NIGHT SHIFT SUPERVISOR Unavailable Unavailable QUIROZ, H DEON NIGHT SHIFT SUPERVISOR Unavailable Unavailable QUIROZ, H DEON NIGHT SHIFT SUPERVISOR Unavailable Unavailable QUIROZ, H DEON NIGHT SHIFT SUPERVISOR Unavailable Unavailable QUIROZ, H DEON NIGHT SHIFT SUPERVISOR Unavailable Unavailable QUIROZ, H DEON NIGHT SHIFT SUPERVISOR Unavailable Unavailable QUIROZ, H DEON NIGHT SHIFT SUPERVISOR Unavailable Unavailable QUIROZ, H DEON NIGHT SHIFT SUPERVISOR Unavailable Unavailable QUIROZ, H DEON NIGHT SHIFT SUPERVISOR Unavailable Unavailable QUIROZ, H DEON NIGHT SHIFT SUPERVISOR Unavailable Unavailable QUIROZ, H DEON NIGHT SHIFT SUPERVISOR Unavailable Unavailable QUIROZ, H DEON NIGHT SHIFT SUPERVISOR Unavailable Unavailable QUIROZ, H DEON NIGHT SHIFT SUPERVISOR Unavailable Unavailable QUIROZ, H DEON NIGHT SHIFT SUPERVISOR Unavailable Unavailable QUIROZ, H DEON NIGHT SHIFT SUPERVISOR Unavailable Unavailable QUIROZ, H DEON NIGHT SHIFT SUPERVISOR Unavailable Unavailable QUIROZ, H DEON NIGHT SHIFT SUPERVISOR Unavailable Unavailable QUIROZ, H DEON NIGHT SHIFT SUPERVISOR Unavailable Unavailable QUIROZ, H DEON NIGHT SHIFT SUPERVISOR Unavailable Unavailable QUIROZ, H DEON NIGHT SHIFT SUPERVISOR Unavailable Unavailable QUIROZ, H DEON NIGHT SHIFT SUPERVISOR Unavailable Unavailable QUIROZ, H DEON NIGHT SHIFT SUPERVISOR Unavailable Unavailable QUIROZ, H DEON NIGHT SHIFT SUPERVISOR Unavailable Unavailable QUIROZ, H DEON NIGHT SHIFT SUPERVISOR Unavailable Unavailable QUIROZ, H DEON NIGHT SHIFT SUPERVISOR Unavailable Unavailable QUIROZ, H DEON NIGHT SHIFT SUPERVISOR Unavailable Unavailable QUIROZ, H DEON NIGHT SHIFT SUPERVISOR Unavailable Unavailable QUIROZ, H DEON NIGHT SHIFT SUPERVISOR Unavailable Unavailable QUIROZ, H DEON NIGHT SHIFT SUPERVISOR Unavailable Unavailable QUIROZ, H DEON NIGHT SHIFT SUPERVISOR Unavailable Unavailable QUIROZ, H DEON NIGHT SHIFT SUPERVISOR Unavailable Unavailable QUIROZ, H DEON NIGHT SHIFT SUPERVISOR Unavailable Unavailable QUIROZ, H DEON NIGHT SHIFT SUPERVISOR Unavailable Unavailable QUIROZ, H DEON NIGHT SHIFT SUPERVISOR Unavailable Unavailable QUIROZ, H DEON NIGHT SHIFT SUPERVISOR Unavailable Unavailable QUIROZ, H DEON NIGHT SHIFT SUPERVISOR Unavailable Unavailable QUIROZ, H DEON NIGHT SHIFT SUPERVISOR Unavailable Unavailable QUIROZ, H DEON NIGHT SHIFT SUPERVISOR Unavailable Unavailable QUIROZ, H DEON NIGHT SHIFT SUPERVISOR Unavailable Unavailable QUIROZ, H DEON NIGHT SHIFT SUPERVISOR Unavailable Unavailable QUIROZ, H DEON NIGHT SHIFT SUPERVISOR Unavailable Unavailable QUIROZ, H DEON NIGHT SHIFT SUPERVISOR Unavailable Unavailable QUIROZ, H DEON NIGHT SHIFT SUPERVISOR Unavailable Unavailable QUIROZ, H DEON NIGHT SHIFT SUPERVISOR Unavailable Unavailable QUIROZ, H DEON NIGHT SHIFT SUPERVISOR Unavailable Unavailable QUIROZ, H DEON NIGHT SHIFT SUPERVISOR Unavailable Unavailable QUIROZ, H DEON NIGHT SHIFT SUPERVISOR Unavailable Unavailable QUIROZ, H DEON NIGHT SHIFT SUPERVISOR Unavailable Unavailable QUIROZ, H DEON NIGHT SHIFT SUPERVISOR Unavailable Unavailable QUIROZ, H DEON NIGHT SHIFT SUPERVISOR Unavailable Unavailable Busby, L Abbi RPA Unavailable [...] is protected by Article 27-F of the [facility] Public Health law. If you continue you may have access to information: Regarding HIV / AIDS; Provided by facilities licensed or operated by the [facility] Office of Mental Health; or Provided by the [facility] Office for People With Developmental Disabilities. If such information is present, then the following [facility] mandated warning applies: This information has [...] law may result in a fine or [place] health care facility sentence or both. A general authorization for the release of medical or other information is NOT sufficient authorization for further disc losure. Allergies and Adverse Reactions Type Description Substance Reaction Status Data Source(s ) codeine Codeine Sulfate Codeine severe chest pain Active e CW1 ([facility]) tetracycline Tetracycline HCl Tetracycline turned teeth yellow Activ e eCW1 ([facility]) Drug allergy IBU Ibuprofen severe joint and muscle pain Acti ve eCW1 ([facility]) Drug allergy Lyrica pregabalin chest pain and irregular heartbeat Active eCW1 ([facility]) Drug allergy Narcan Naloxone seizures and highly combative Act renny eCW1 ([facility]) Drug allergy Augmentin amoxicillin / clavulanate Diarrhea, vomiting Active eCW1 ([facility]) Drug allergy Dilaudid Hydromorphone itching Active eCW1 ([facility]) Erythromycin Erythromycin Erythromycin Vomiting, Diarrhea Active eCW1 ([facility]) seasonal,dust,mold,ragweed,chestnut blossoms, cut g seasonal,dust,mold,ragweed,chestnut blossoms, cut g seasonal,dust,mold,ragweed,chestnut blossoms, cut g Dyspnea Active eCW1 ([facility]) seasonal,dust,mold,ragweed,chestnut blossoms, cut g seasonal,dust,mold,ragweed,chestnut blossoms, cut g seasonal,dust,mold,ragweed,chestnut blossoms, cut g Dyspnea Active eCW1 ([facility]) Codeine Sulfate Codeine Sulfate Codeine Sulfate severe chest pain Ac tive eCW1 ([facility]) Family History Family Member Name Family Member Gender Family Member Status Date o f Status Description Data Source(s) Unknown Male Problem MEDENT ([facility]) Encounters Encounter Providers Location Date Indications Data Source(s ) Unknown [address] [facility] [id number] 10/16/2020 12:00:00 AM EST [facility] Unknown [address] [facility] [address] 10/16/2020 12:00:00 AM EST [facility]CW1 [facility]) (TCM) Transition of Care Visit [address] [place] [address] 10/15/2020 12:00:00 AM EST eCW1 ([facility]) Outpatient [address] [facility] [id number] 10/09/2020 12:00:00 AM EST eCW1 ([facility] Unknown [address] [facility] [address] 10/06/2020 12:00:00 AM EST eCW1 ([facility]) Unknown [address] [facility] [address] 10/01/2020 12:00:00 AM EST eCW1 ([facility]) Unknown [address] [facility] [address] 09/30/2020 12:00:00 AM EST [facility]CW1 ([facility]) Unknown [address] [facility] [address] 09/30/2020 12:00:00 AM EST eCW1 ([facility]) Unknown [address] [facility] [address] 09/19/2020 12:00:00 AM EST eCW1 ([facility]) Outpatient [address] [facility] [id number] 09/10/2020 12:00:00 AM EST eCW1 ([facility]) [place] [address] [facility] [address] 09/09/2020 12:00:00 AM EST eCW1 ([facility]) [place] [address] [facility] [address] 09/02/2020 12:00:00 AM EST eCW1 ([facility]) [place] [address] [facility] [address] 09/01/2020 12:00:00 AM EST eCW1 ([facility]) [place] [address] [facility] [address] 08/21/2020 12:00:00 AM EST eCW1 ([facility]) [place] [address] [facility] [address] 08/12/2020 12:00:00 AM EST eCW1 ([facility]) [place] [address] [facility] [address] 08/04/2020 12:00:00 AM EST eCW1 ([facility]) [place] [address] [facility] [address] 07/09/2020 12:00:00 AM EDT eCW1 ([facility]) [place] [address] [facility] [address] 07/08/2020 12:00:00 AM EDT eCW1 ([facility]) [place] [address] [facility] [address] 06/24/2020 12:00:00 AM EDT eCW1 ([facility]) Outpatient Attender: Judi SMITH Main Office 04/02/2020 10:45:00 AM EDT MEDENT ([facility]) [place] [address] [facility] [address] 03/24/2020 12:00:00 AM EDT eCW1 ([facility]) [place] [address] [facility] [address] 03/21/2020 12:00:00 AM EDT [facility]CW1 [facility]) Outpatient Referrer: DEON QUIROZ NP 02/28/2020 06:12:00 AM E DT [facility] Unknown [address] [place] [address] [address] 02/20/2020 12:00:00 AM EDT eCW1 [facility]) Outpatient [address] [place] [address], [place] [address] 02/15/2020 12:00:00 AM EDT eCW1 ([facility]) [address] [address] 02/07/2020 12:00:00 AM EDT eCW1 ([facility]) Outpatient Attender: FRANCISCO Mora/Omar/Kaden anderson/Reinjulita 01/17/2020 03:40:00 PM EDT MED[facility] ([facility] [address] [address] 01/15/2020 12:00:00 AM EDT eCW1 ([facility]) [address] [address] 01/07/2020 12:00:00 AM EDT eCW1 ([facility]) [address] [address] 01/03/2020 12:00:00 AM EDT eCW1 ([facility]) Outpatient Referrer: DEON QUIROZ NIGHT SHIFT SUPERVISOR 12/13/2019 05:53:00 AM E DT [facility] Outpatient Attender: Abbi Mora/Omar/Dmitriy/R eindl 12/11/2019 11:00:00 AM EDT MEDENT ([facility] [address] [address] 12/07/2019 12:00:00 AM EDT eCW1 ([facility]) [address] [address] 11/26/2019 12:00:00 AM EDT eCW1 ([facility]) [facility] [address] [facility] [address] 11/23/2019 12:00:00 AM EDT eCW1 ([facility]) [facility] [address] [facility] [address] 11/19/2019 12:00:00 AM EDT eCW1 ([facility]) [facility] [address] [facility] [address] 11/07/2019 12:00:00 AM EST eCW1 ([facility]) [facility] [address] [facility] [address] 11/07/2019 12:00:00 AM EST eCW1 ([facility]) Outpatient Referrer: DEON QUIROZ NP 11/06/2019 02:23:[address] [facility] [address] [facility] [address] 11/06/2019 12:00:00 AM EST eCW1 ([facility]) [facility] [address] [facility] [address] 10/29/2019 12:00:00 AM EST eCW1 ([facility] [address] [place] [address], [place] [address] 10/08/2019 12:00:00 AM EST eCW1 ([facility]) Outpatient Referrer: DEON QUIROZ NP 10/04/2019 01:37:[address] [facility] Outpatient Referrer: DEON QUIROZ NP 09/28/2019 05:46:[address] [facility] [address] [place] [address] [address] 09/26/2019 12:00:00 AM EST eCW1 ([facility]) [facility] [address] [facility] [address] 09/21/2019 12:00:00 AM EST eCW1 ([facility]) [facility] [address] [facility] [address] 09/19/2019 12:00:00 AM EST eCW1 ([facility]) [facility] [address] [facility] [address] 09/13/2019 12:00:00 AM EST eCW1 ([facility]) Outpatient Referrer: DEON QUIROZ NP 08/28/2019 09:07:00 PM E [facility] [address] [facility] [address] 08/27/2019 12:00:00 AM EST eCW1 ([facility]) Immunizations Vaccine Date Status Description Data Source(s) influenza, recombinant, quadrIvalent,injectable, prese rvative free 07/09/2020 11:09:00 AM EDT completed eCW1 ([facility]) influenza, recombinant, quadrIvalent,injectable, prese rvative free 07/09/2020 11:09:00 AM EDT completed eCW1 ([facility]) influenza, recombinant, quadrIvalent,injectable, prese rvative free 07/09/2020 11:09:00 AM EDT completed eCW1 ([facility]) influenza, recombinant, quadrIvalent,injectable, prese rvative free 07/09/2020 11:09:00 AM EDT completed eCW1 ([facility]) influenza, recombinant, quadrIvalent,injectable, prese rvative free 07/09/2020 11:09:00 AM EDT completed eCW1 ([facility]) influenza, recombinant, quadrIvalent,injectable, prese rvative free 07/09/2020 11:09:00 AM EDT completed eCW1 ([facility]) influenza, recombinant, quadrIvalent,injectable, prese rvative free 07/09/2020 11:09:00 AM EDT completed eCW1 ([facility]) influenza, recombinant, quadrIvalent,injectable, prese rvative free 07/09/2020 11:09:00 AM EDT completed eCW1 ([facility]) influenza, recombinant, quadrIvalent,injectable, prese rvative free 07/09/2020 11:09:00 AM EDT completed eCW1 ([facility]) influenza, recombinant, quadrIvalent,injectable, prese rvative free 07/09/2020 11:09:00 AM EDT completed eCW1 ([facility]) influenza, recombinant, quadrIvalent,injectable, prese rvative free 07/09/2020 11:09:00 AM EDT completed eCW1 ([facility]) influenza, recombinant, quadrIvalent,injectable, prese rvative free 07/09/2020 11:09:00 AM EDT completed eCW1 ([facility]) influenza, recombinant, quadrIvalent,injectable, prese rvative free 07/09/2020 11:09:00 AM EDT completed eCW1 ([facility]) influenza, recombinant, quadrIvalent,injectable, prese rvative free 07/09/2020 11:09:00 AM EDT completed eCW1 ([facility]) influenza, recombinant, quadrIvalent,injectable, prese rvative free 07/09/2020 11:09:00 AM EDT completed eCW1 ([facility]) influenza, recombinant, quadrIvalent,injectable, prese rvative free 07/09/2020 11:09:00 AM EDT completed eCW1 ([facility]) influenza, recombinant, quadrIvalent,injectable, prese rvative free 07/09/2020 11:09:00 AM EDT completed eCW1 ([facility]) influenza, recombinant, quadrIvalent,injectable, prese rvative free 07/09/2020 11:09:00 AM EDT completed eCW1 ([facility]) Medications Medication Brand Name Start Date Product Form Dose Route Admi nistrative Instructions Pharmacy Instructions Status Indications Reaction Description Data Source(s) Prednisone 10 MG Oral Tablet PredniSONE 10 MG PredniSONE 10 MG 10/03/2020 12:00:00 AM EST 1.0 {tablet} active Pr edniSONE 10 MG eCW1 ([facility]) Triamcinolone Acetonide 1 MG/ML Topical Cream Triamcin olone Acetonide 0.1 % Triamcinolone Acetonide 0.1 % 10/03/2020 12:00:00 AM EST 1.0 {appli cation} active Triamcinolone Acetonide 0 .1 % eCW1 ([facility]) Prednisone 10 MG Oral Tablet PredniSONE 10 MG PredniSONE 10 MG 10/03/2020 12:00:00 AM EST 1.0 {tablet} active Pr edniSONE 10 MG eCW1 ([facility]) Prednisone 10 MG Oral Tablet PredniSONE 10 MG PredniSONE 10 MG 10/03/2020 12:00:00 AM EST 1.0 {tablet} active Pr edniSONE 10 MG eCW1 ([facility]) Prednisone 10 MG Oral Tablet PredniSONE 10 MG PredniSONE 10 MG 10/03/2020 12:00:00 AM EST 1.0 {tablet} active Pr edniSONE 10 MG eCW1 ([facility]) Prednisone 10 MG Oral Tablet PredniSONE 10 MG PredniSONE 10 MG 10/03/2020 12:00:00 AM EST 1.0 {tablet} active Pr edniSONE 10 MG eCW1 ([facility]) Cephalexin 500 MG Oral Capsule [Keflex] Keflex 500 MG Keflex 500 MG 09/10/2020 12:00:00 AM EST 1.0 {capsule} active K eflex 500 MG eCW1 ([facility]) Cephalexin 500 MG Oral Capsule [Keflex] Keflex 500 MG Keflex 500 MG 09/10/2020 12:00:00 AM EST 1.0 {capsule} active K eflex 500 MG eCW1 ([facility]) Cephalexin 500 MG Oral Capsule [Keflex] Keflex 500 MG Keflex 500 MG 09/10/2020 12:00:00 AM EST 1.0 {capsule} active K eflex 500 MG eCW1 ([facility]) Cephalexin 500 MG Oral Capsule [Keflex] Keflex 500 MG Keflex 500 MG 09/10/2020 12:00:00 AM EST 1.0 {capsule} active K eflex 500 MG eCW1 ([facility]) Cephalexin 500 MG Oral Capsule [Keflex] Keflex 500 MG Keflex 500 MG 09/10/2020 12:00:00 AM EST 1.0 {capsule} active K eflex 500 MG eCW1 ([facility]) apixaban 2.5 MG Oral Tablet [Eliquis] Eliquis 2.5 MG Eliquis 2.5 MG 08/12/2020 12:00:00 AM EST suspended Eliqu is 2.5 MG eCW1 ([facility]) apixaban 2.5 MG Oral Tablet [Eliquis] Eliquis 2.5 MG Eliquis 2.5 MG 08/12/2020 12:00:00 AM EST active Eliquis 2.5 MG eCW1 ([facility]) apixaban 2.5 MG Oral Tablet [Eliquis] Eliquis 2.5 MG Eliquis 2.5 MG 08/12/2020 12:00:00 AM EST active Eliquis 2.5 MG eCW1 ([facility]) apixaban 2.5 MG Oral Tablet [Eliquis] Eliquis 2.5 MG Eliquis 2.5 MG 08/12/2020 12:00:00 AM EST active Eliquis 2.5 MG eCW1 ([facility]) apixaban 2.5 MG Oral Tablet [Eliquis] Eliquis 2.5 MG Eliquis 2.5 MG 08/12/2020 12:00:00 AM EST active Eliquis 2.5 MG eCW1 ([facility]) apixaban 2.5 MG Oral Tablet [Eliquis] Eliquis 2.5 MG Eliquis 2.5 MG 08/12/2020 12:00:00 AM EST suspended Eliqu is 2.5 MG eCW1 ([facility]) apixaban 2.5 MG Oral Tablet [Eliquis] Eliquis 2.5 MG Eliquis 2.5 MG 08/12/2020 12:00:00 AM EST active Eliquis 2.5 MG eCW1 ([facility]) apixaban 2.5 MG Oral Tablet [Eliquis] Eliquis 2.5 MG Eliquis 2.5 MG 08/12/2020 12:00:00 AM EST suspended Eliqu is 2.5 MG eCW1 ([facility]) apixaban 2.5 MG Oral Tablet [Eliquis] Eliquis 2.5 MG Eliquis 2.5 MG 08/12/2020 12:00:00 AM EST active Eliquis 2.5 MG eCW1 ([facility]) apixaban 2.5 MG Oral Tablet [Eliquis] Eliquis 2.5 MG Eliquis 2.5 MG 08/12/2020 12:00:00 AM EST suspended Eliqu is 2.5 MG eCW1 ([facility]) apixaban 2.5 MG Oral Tablet [Eliquis] Eliquis 2.5 MG Eliquis 2.5 MG 08/12/2020 12:00:00 AM EST active Eliquis 2.5 MG eCW1 ([facility]) apixaban 2.5 MG Oral Tablet [Eliquis] Eliquis 2.5 MG Eliquis 2.5 MG 08/12/2020 12:00:00 AM EST active Eliquis 2.5 MG eCW1 ([facility]) apixaban 2.5 MG Oral Tablet [Eliquis] Eliquis 2.5 MG Eliquis 2.5 MG 08/12/2020 12:00:00 AM EST active Eliquis 2.5 MG eCW1 ([facility]) apixaban 2.5 MG Oral Tablet [Eliquis] Eliquis 2.5 MG Eliquis 2.5 MG 08/12/2020 12:00:00 AM EST active Eliquis 2.5 MG eCW1 ([facility]) apixaban 2.5 MG Oral Tablet [Eliquis] Eliquis 2.5 MG Eliquis 2.5 MG 08/12/2020 12:00:00 AM EST active Eliquis 2.5 MG eCW1 ([facility]) apixaban 2.5 MG Oral Tablet [Eliquis] Eliquis 2.5 MG Eliquis 2.5 MG 08/12/2020 12:00:00 AM EST active Eliquis 2.5 MG eCW1 ([facility]) Loperamide Hydrochloride 2 MG Oral Capsule [Imodium] I modium A-D 2 MG Imodium A- D 2 MG 08/01/2020 12:00:00 AM EST 1.0 {capsule_as_needed} active Imodium A-D 2 MG eCW1 ([facility]) Loperamide Hydrochloride 2 MG Oral Capsule [Imodium] I modium A-D 2 MG Imodium A- D 2 MG 08/01/2020 12:00:00 AM EST 1.0 {capsule_as_needed} active Imodium A-D 2 MG eCW1 ([facility]) Loperamide Hydrochloride 2 MG Oral Capsule [Imodium] I modium A-D 2 MG Imodium A- D 2 MG 08/01/2020 12:00:00 AM EST 1.0 {capsule_as_needed} active Imodium A-D 2 MG eCW1 ([facility]) Loperamide Hydrochloride 2 MG Oral Capsule [Imodium] I modium A-D 2 MG Imodium A- D 2 MG 08/01/2020 12:00:00 AM EST 1.0 {capsule_as_needed} active Imodium A-D 2 MG eCW1 ([facility]) Loperamide Hydrochloride 2 MG Oral Capsule [Imodium] I modium A-D 2 MG Imodium A- D 2 MG 08/01/2020 12:00:00 AM EST 1.0 {capsule_as_needed} active Imodium A-D 2 MG eCW1 ([facility]) Loperamide Hydrochloride 2 MG Oral Capsule [Imodium] I modium A-D 2 MG Imodium A- D 2 MG 08/01/2020 12:00:00 AM EST 1.0 {capsule_as_needed} active Imodium A-D 2 MG eCW1 ([facility]) Loperamide Hydrochloride 2 MG Oral Capsule [Imodium] I modium A-D 2 MG Imodium A- D 2 MG 08/01/2020 12:00:00 AM EST 1.0 {capsule_as_needed} active Imodium A-D 2 MG eCW1 ([facility]) Loperamide Hydrochloride 2 MG Oral Capsule [Imodium] I modium A-D 2 MG Imodium A- D 2 MG 08/01/2020 12:00:00 AM EST 1.0 {capsule_as_needed} active Imodium A-D 2 MG eCW1 ([facility]) Loperamide Hydrochloride 2 MG Oral Capsule [Imodium] I modium A-D 2 MG Imodium A- D 2 MG 08/01/2020 12:00:00 AM EST 1.0 {capsule_as_needed} active Imodium A-D 2 MG eCW1 ([facility]) Loperamide Hydrochloride 2 MG Oral Capsule [Imodium] I modium A-D 2 MG Imodium A- D 2 MG 08/01/2020 12:00:00 AM EST 1.0 {capsule_as_needed} active Imodium A-D 2 MG eCW1 ([facility]) Loperamide Hydrochloride 2 MG Oral Capsule [Imodium] I modium A-D 2 MG Imodium A- D 2 MG 08/01/2020 12:00:00 AM EST 1.0 {capsule_as_needed} active Imodium A-D 2 MG eCW1 ([facility]) Levofloxacin 750 MG Oral Tablet Levofloxacin 750 MG 07/09/2020 1 2:00:00 AM EDT 1.0 {tablet} suspended Levofloxa darius 750 MG eCW1 ([facility]) Levofloxacin 750 MG Oral Tablet Levofloxacin 750 MG 07/09/2020 1 2:00:00 AM EDT 1.0 {tablet} active Levofloxaci n 750 MG eCW1 ([facility]) Levofloxacin 750 MG Oral Tablet Levofloxacin 750 MG 07/09/2020 1 2:00:00 AM EDT 1.0 {tablet} active Levofloxaci n 750 MG eCW1 ([facility]) Levofloxacin 750 MG Oral Tablet Levofloxacin 750 MG 07/09/2020 1 2:00:00 AM EDT 1.0 {tablet} active Levofloxaci n 750 MG eCW1 ([facility]) Levofloxacin 750 MG Oral Tablet Levofloxacin 750 MG 07/09/2020 1 2:00:00 AM EDT 1.0 {tablet} active Levofloxaci n 750 MG eCW1 ([facility]) Levofloxacin 750 MG Oral Tablet Levofloxacin 750 MG 07/09/2020 1 2:00:00 AM EDT 1.0 {tablet} active Levofloxaci n 750 MG eCW1 ([facility]) Levofloxacin 750 MG Oral Tablet Levofloxacin 750 MG 07/09/2020 1 2:00:00 AM EDT 1.0 {tablet} suspended Levofloxa darius 750 MG eCW1 ([facility]) Levofloxacin 750 MG Oral Tablet Levofloxacin 750 MG 07/09/2020 1 2:00:00 AM EDT 1.0 {tablet} suspended Levofloxa darius 750 MG eCW1 ([facility]) Levofloxacin 750 MG Oral Tablet Levofloxacin 750 MG 07/09/2020 1 2:00:00 AM EDT 1.0 {tablet} active Levofloxaci n 750 MG eCW1 ([facility]) Levofloxacin 750 MG Oral Tablet Levofloxacin 750 MG 07/09/2020 1 2:00:00 AM EDT 1.0 {tablet} active Levofloxaci n 750 MG eCW1 ([facility]) Levofloxacin 750 MG Oral Tablet Levofloxacin 750 MG 07/09/2020 1 2:00:00 AM EDT 1.0 {tablet} suspended Levofloxa darius 750 MG eCW1 ([facility]) Levofloxacin 750 MG Oral Tablet Levofloxacin 750 MG 07/09/2020 1 2:00:00 AM EDT 1.0 {tablet} active Levofloxaci n 750 MG eCW1 ([facility]) Levofloxacin 750 MG Oral Tablet Levofloxacin 750 MG 07/09/2020 1 2:00:00 AM EDT 1.0 {tablet} active Levofloxaci n 750 MG eCW1 ([facility]) Levofloxacin 750 MG Oral Tablet Levofloxacin 750 MG 07/09/2020 1 2:00:00 AM EDT 1.0 {tablet} active Levofloxaci n 750 MG eCW1 ([facility]) Levofloxacin 750 MG Oral Tablet Levofloxacin 750 MG 07/09/2020 1 2:00:00 AM EDT 1.0 {tablet} active Levofloxaci n 750 MG eCW1 ([facility]) Levofloxacin 750 MG Oral Tablet Levofloxacin 750 MG 07/09/2020 1 2:00:00 AM EDT 1.0 {tablet} active Levofloxaci n 750 MG eCW1 ([facility]) Levofloxacin 750 MG Oral Tablet Levofloxacin 750 MG 07/09/2020 1 2:00:00 AM EDT 1.0 {tablet} active Levofloxaci n 750 MG eCW1 ([facility]) Levofloxacin 750 MG Oral Tablet Levofloxacin 750 MG 07/09/2020 1 2:00:00 AM EDT 1.0 {tablet} suspended Levofloxa darius 750 MG eCW1 ([facility]) Sucralfate 1000 MG Oral Tablet Sucralfate 04/01/2020 12:00:00 AM EDT ORAL active [facility] ([facility]) Vitamin B Complex-C 04/01/2020 12:00:00 AM EDT ORAL active [facility] ([facility]) Vitamin B 12 1 MG Oral Tablet Vitamin B-12 04/01/2020 12:00:00 AM EDT ORAL active [facility] ([facility]) Oxygen - Home 04/01/2020 12:00:00 AM EDT acti ve MED[facility] ([facility]) Lactulose 667 MG/ML Oral Solution Lactulose 04/01/2020 12:00:00 AM EDT ORAL active [facility] ([facility]) Bisoprolol Fumarate 5 MG Oral Tablet Bisoprolol Fumarate 12:00:00 AM EDT ORAL active [facility] ([facility]) gabapentin 800 MG Oral Tablet Gabapentin 800 MG Gabapentin 8 00 MG 02/19/2020 12:00:00 AM EDT 1.0 {tablet} active Ga bapentin 800 MG eCW1 ([facility]) Albuterol 0.833 MG/ML / Ipratropium Brom doyle 0.167 MG/ML Inhalant Solution Ipratropium-Albuterol 0.5-2.5 (3) MG/3ML Ipratropium-Albuterol 0.5-2.5 (3) MG/3ML 02/19/2020 12:00:00 AM EDT 3.0 {ml_as_needed} active Ipratropium-Albuterol 0.5-2.5 (3) MG/3ML eCW1 ([facility]) Cholecalciferol 10 MCG (400 UNIT) UNK 02/19/2020 12:00:00 AM EDT 1.0 {capsule} suspended Cholecalciferol 10 MCG (400 UNIT) eCW1 ([facility]) Albuterol 0.833 MG/ML / Ipratropium Brom doyle 0.167 MG/ML Inhalant Solution Ipratropium-Albuterol 0.5-2.5 (3) MG/3ML Ipratropium-Albuterol 0.5-2.5 (3) MG/3ML 02/19/2020 12:00:00 AM EDT 3.0 {ml_as_needed} active Ipratropium-Albuterol 0.5-2.5 (3) MG/3ML eCW1 ([facility]) gabapentin 800 MG Oral Tablet Gabapentin 800 MG Gabapentin 8 00 MG 02/19/2020 12:00:00 AM EDT 1.0 {tablet} active Ga bapentin 800 MG eCW1 ([facility]) gabapentin 800 MG Oral Tablet Gabapentin 800 MG Gabapentin 8 00 MG 02/19/2020 12:00:00 AM EDT 1.0 {tablet} active Ga bapentin 800 MG eCW1 ([facility]) Cholecalciferol 10 MCG (400 UNIT) UNK 02/19/2020 12:00:00 AM EDT 1.0 {capsule} active Cholecalciferol 10 MCG ( 400 UNIT) eCW1 ([facility]) Cholecalciferol 10 MCG (400 UNIT) UNK 02/19/2020 12:00:00 AM EDT 1.0 {capsule} active Cholecalciferol 10 MCG ( 400 UNIT) eCW1 ([facility]) Bisoprolol Fumarate 5 MG Oral Tablet Bisoprolol Fumarate 5 M G 02/19/2020 12:00:00 AM EDT 1.0 {tablet} active Bi soprolol Fumarate 5 MG eCW1 ([facility]) Bisoprolol Fumarate 5 MG Oral Tablet Bisoprolol Fumarate 5 M G 02/19/2020 12:00:00 AM EDT 1.0 {tablet} active Bi soprolol Fumarate 5 MG eCW1 ([facility]) Albuterol 0.833 MG/ML / Ipratropium Brom doyle 0.167 MG/ML Inhalant Solution Ipratropium-Albuterol 0.5-2.5 (3) MG/3ML Ipratropium-Albuterol 0.5-2.5 (3) MG/3ML 02/19/2020 12:00:00 AM EDT 3.0 {ml_as_needed} active Ipratropium-Albuterol 0.5-2.5 (3) MG/3ML eCW1 ([facility]) Bisoprolol Fumarate 5 MG Oral Tablet Bisoprolol Fumarate 5 M G 02/19/2020 12:00:00 AM EDT 1.0 {tablet} active Bi soprolol Fumarate 5 MG eCW1 ([facility]) Bisoprolol Fumarate 5 MG Oral Tablet Bisoprolol Fumarate 5 M G 02/19/2020 12:00:00 AM EDT 1.0 {tablet} active Bi soprolol Fumarate 5 MG eCW1 ([facility]) Cholecalciferol 10 MCG (400 UNIT) UNK 02/19/2020 12:00:00 AM EDT 1.0 {capsule} active Cholecalciferol 10 MCG ( 400 UNIT) eCW1 ([facility]) gabapentin 800 MG Oral Tablet Gabapentin 800 MG Gabapentin 8 00 MG 02/19/2020 12:00:00 AM EDT 1.0 {tablet} active Ga bapentin 800 MG eCW1 ([facility]) Albuterol 0.833 MG/ML / Ipratropium Brom doyle 0.167 MG/ML Inhalant Solution Ipratropium-Albuterol 0.5-2.5 (3) MG/3ML Ipratropium-Albuterol 0.5-2.5 (3) MG/3ML 02/19/2020 12:00:00 AM EDT 3.0 {ml_as_needed} active Ipratropium-Albuterol 0.5-2.5 (3) MG/3ML eCW1 ([facility]) Bisoprolol Fumarate 5 MG Oral Tablet Bisoprolol Fumarate 5 M G 02/19/2020 12:00:00 AM EDT 1.0 {tablet} active Bi soprolol Fumarate 5 MG eCW1 ([facility]) gabapentin 800 MG Oral Tablet Gabapentin 800 MG Gabapentin 8 00 MG 02/19/2020 12:00:00 AM EDT 1.0 {tablet} active Ga bapentin 800 MG eCW1 ([facility]) Bisoprolol Fumarate 5 MG Oral Tablet Bisoprolol Fumarate 5 M G 02/19/2020 12:00:00 AM EDT 1.0 {tablet} active Bi soprolol Fumarate 5 MG eCW1 ([facility]) gabapentin 800 MG Oral Tablet Gabapentin 800 MG Gabapentin 8 00 MG 02/19/2020 12:00:00 AM EDT 1.0 {tablet} active Ga bapentin 800 MG eCW1 ([facility]) Albuterol 0.833 MG/ML / Ipratropium Brom doyle 0.167 MG/ML Inhalant Solution Ipratropium-Albuterol 0.5-2.5 (3) MG/3ML Ipratropium-Albuterol 0.5-2.5 (3) MG/3ML 02/19/2020 12:00:00 AM EDT 3.0 {ml_as_needed} active Ipratropium-Albuterol 0.5-2.5 (3) MG/3ML eCW1 ([facility]) Albuterol 0.833 MG/ML / Ipratropium Brom doyle 0.167 MG/ML Inhalant Solution Ipratropium-Albuterol 0.5-2.5 (3) MG/3ML Ipratropium-Albuterol 0.5-2.5 (3) MG/3ML 02/19/2020 12:00:00 AM EDT 3.0 {ml_as_needed} active Ipratropium-Albuterol 0.5-2.5 (3) MG/3ML eCW1 ([facility]) Bisoprolol Fumarate 5 MG Oral Tablet Bisoprolol Fumarate 5 M G 02/19/2020 12:00:00 AM EDT 1.0 {tablet} active Bi soprolol Fumarate 5 MG eCW1 ([facility]) Cholecalciferol 10 MCG (400 UNIT) UNK 02/19/2020 12:00:00 AM EDT 1.0 {capsule} active Cholecalciferol 10 MCG ( 400 UNIT) eCW1 ([facility]) Albuterol 0.833 MG/ML / Ipratropium Brom doyle 0.167 MG/ML Inhalant Solution Ipratropium-Albuterol 0.5-2.5 (3) MG/3ML Ipratropium-Albuterol 0.5-2.5 (3) MG/3ML 02/19/2020 12:00:00 AM EDT 3.0 {ml_as_needed} suspended Ipratropium-Albuterol 0.5-2.5 (3) MG/3ML eCW1 ([facility]) Cholecalciferol 10 MCG (400 UNIT) UNK 02/19/2020 12:00:00 AM EDT 1.0 {capsule} active Cholecalciferol 10 MCG ( 400 UNIT) eCW1 ([facility]) Levofloxacin 500 MG Oral Tablet Levofloxacin 500 MG 02/19/2020 1 2:00:00 AM EDT 1.0 {tablet} active Levofloxaci n 500 MG eCW1 ([facility]) Bisoprolol Fumarate 5 MG Oral Tablet Bisoprolol Fumarate 5 M G 02/19/2020 12:00:00 AM EDT 1.0 {tablet} active Bi soprolol Fumarate 5 MG eCW1 ([facility]) gabapentin 800 MG Oral Tablet Gabapentin 800 MG Gabapentin 8 00 MG 02/19/2020 12:00:00 AM EDT 1.0 {tablet} active Ga bapentin 800 MG eCW1 ([facility]) Albuterol 0.833 MG/ML / Ipratropium Brom doyle 0.167 MG/ML Inhalant Solution Ipratropium-Albuterol 0.5-2.5 (3) MG/3ML Ipratropium-Albuterol 0.5-2.5 (3) MG/3ML 02/19/2020 12:00:00 AM EDT 3.0 {ml_as_needed} active Ipratropium-Albuterol 0.5-2.5 (3) MG/3ML eCW1 ([facility]) Bisoprolol Fumarate 5 MG Oral Tablet Bisoprolol Fumarate 5 M G 02/19/2020 12:00:00 AM EDT 1.0 {tablet} active Bi soprolol Fumarate 5 MG eCW1 ([facility]) Albuterol 0.833 MG/ML / Ipratropium Brom doyle 0.167 MG/ML Inhalant Solution Ipratropium-Albuterol 0.5-2.5 (3) MG/3ML Ipratropium-Albuterol 0.5-2.5 (3) MG/3ML 02/19/2020 12:00:00 AM EDT 3.0 {ml_as_needed} suspended Ipratropium-Albuterol 0.5-2.5 (3) MG/3ML eCW1 ([facility]) Cholecalciferol 10 MCG (400 UNIT) UNK 02/19/2020 12:00:00 AM EDT 1.0 {capsule} suspended Cholecalciferol 10 MCG (400 UNIT) eCW1 ([facility]) Cholecalciferol 10 MCG (400 UNIT) K 02/19/2020 12:00:00 AM EDT 1.0 {capsule} active Cholecalciferol 10 MCG ( 400 UNIT) eCW1 ([facility]) Albuterol 0.833 MG/ML / Ipratropium Brom doyle 0.167 MG/ML Inhalant Solution Ipratropium-Albuterol 0.5-2.5 (3) MG/3ML Ipratropium-Albuterol 0.5-2.5 (3) MG/3ML 02/19/2020 12:00:00 AM EDT 3.0 {ml_as_needed} active Ipratropium-Albuterol 0.5-2.5 (3) MG/3ML eCW1 ([facility]) Cholecalciferol 10 MCG (400 UNIT) K 02/19/2020 12:00:00 AM EDT 1.0 {capsule} active Cholecalciferol 10 MCG ( 400 UNIT) eCW1 ([facility]) Cholecalciferol 10 MCG (400 UNIT) UNK 02/19/2020 12:00:00 AM EDT 1.0 {capsule} active Cholecalciferol 10 MCG ( 400 UNIT) eCW1 ([facility]) Bisoprolol Fumarate 5 MG Oral Tablet Bisoprolol Fumarate 5 M G 02/19/2020 12:00:00 AM EDT 1.0 {tablet} active Bi soprolol Fumarate 5 MG eCW1 ([facility]) Bisoprolol Fumarate 5 MG Oral Tablet Bisoprolol Fumarate 5 M G 02/19/2020 12:00:00 AM EDT 1.0 {tablet} active Bi soprolol Fumarate 5 MG eCW1 ([facility]) Albuterol 0.833 MG/ML / Ipratropium Brom doyle 0.167 MG/ML Inhalant Solution Ipratropium-Albuterol 0.5-2.5 (3) MG/3ML Ipratropium-Albuterol 0.5-2.5 (3) MG/3ML 02/19/2020 12:00:00 AM EDT 3.0 {ml_as_needed} active Ipratropium-Albuterol 0.5-2.5 (3) MG/3ML eCW1 ([facility]) Cholecalciferol 10 MCG (400 UNIT) UNK 02/19/2020 12:00:00 AM EDT 1.0 {capsule} suspended Cholecalciferol 10 MCG (400 UNIT) eCW1 ([facility]) gabapentin 800 MG Oral Tablet Gabapentin 800 MG Gabapentin 8 00 MG 02/19/2020 12:00:00 AM EDT 1.0 {tablet} active Ga bapentin 800 MG eCW1 ([facility]) Albuterol 0.833 MG/ML / Ipratropium Brom doyle 0.167 MG/ML Inhalant Solution Ipratropium-Albuterol 0.5-2.5 (3) MG/3ML Ipratropium-Albuterol 0.5-2.5 (3) MG/3ML 02/19/2020 12:00:00 AM EDT 3.0 {ml_as_needed} suspended Ipratropium-Albuterol 0.5-2.5 (3) MG/3ML eCW1 ([facility]) Albuterol 0.833 MG/ML / Ipratropium Brom doyle 0.167 MG/ML Inhalant Solution Ipratropium-Albuterol 0.5-2.5 (3) MG/3ML Ipratropium-Albuterol 0.5-2.5 (3) MG/3ML 02/19/2020 12:00:00 AM EDT 3.0 {ml_as_needed} active Ipratropium-Albuterol 0.5-2.5 (3) MG/3ML eCW1 ([facility]) Albuterol 0.833 MG/ML / Ipratropium Brom doyle 0.167 MG/ML Inhalant Solution Ipratropium-Albuterol 0.5-2.5 (3) MG/3ML Ipratropium-Albuterol 0.5-2.5 (3) MG/3ML 02/19/2020 12:00:00 AM EDT 3.0 {ml_as_needed} active Ipratropium-Albuterol 0.5-2.5 (3) MG/3ML eCW1 ([facility]) gabapentin 800 MG Oral Tablet Gabapentin 800 MG Gabapentin 8 00 MG 02/19/2020 12:00:00 AM EDT 1.0 {tablet} active Ga bapentin 800 MG eCW1 ([facility]) Bisoprolol Fumarate 5 MG Oral Tablet Bisoprolol Fumarate 5 M G 02/19/2020 12:00:00 AM EDT 1.0 {tablet} active Bi soprolol Fumarate 5 MG eCW1 ([facility]) Albuterol 0.833 MG/ML / Ipratropium Brom doyle 0.167 MG/ML Inhalant Solution Ipratropium-Albuterol 0.5-2.5 (3) MG/3ML Ipratropium-Albuterol 0.5-2.5 (3) MG/3ML 02/19/2020 12:00:00 AM EDT 3.0 {ml_as_needed} active Ipratropium-Albuterol 0.5-2.5 (3) MG/3ML eCW1 ([facility]) Bisoprolol Fumarate 5 MG Oral Tablet Bisoprolol Fumarate 5 M G 02/19/2020 12:00:00 AM EDT 1.0 {tablet} active Bi soprolol Fumarate 5 MG eCW1 ([facility]) Albuterol 0.833 MG/ML / Ipratropium Brom doyle 0.167 MG/ML Inhalant Solution Ipratropium-Albuterol 0.5-2.5 (3) MG/3ML Ipratropium-Albuterol 0.5-2.5 (3) MG/3ML 02/19/2020 12:00:00 AM EDT 3.0 {ml_as_needed} active Ipratropium-Albuterol 0.5-2.5 (3) MG/3ML eCW1 ([facility]) Bisoprolol Fumarate 5 MG Oral Tablet Bisoprolol Fumarate 5 M G 02/19/2020 12:00:00 AM EDT 1.0 {tablet} active Bi soprolol Fumarate 5 MG eCW1 ([facility]) Albuterol 0.833 MG/ML / Ipratropium Brom doyle 0.167 MG/ML Inhalant Solution Ipratropium-Albuterol 0.5-2.5 (3) MG/3ML Ipratropium-Albuterol 0.5-2.5 (3) MG/3ML 02/19/2020 12:00:00 AM EDT 3.0 {ml_as_needed} active Ipratropium-Albuterol 0.5-2.5 (3) MG/3ML eCW1 ([facility]) Cholecalciferol 10 MCG (400 UNIT) UNK 02/19/2020 12:00:00 AM EDT 1.0 {capsule} active Cholecalciferol 10 MCG ( 400 UNIT) eCW1 ([facility]) gabapentin 800 MG Oral Tablet Gabapentin 800 MG Gabapentin 8 00 MG 02/19/2020 12:00:00 AM EDT 1.0 {tablet} active Ga bapentin 800 MG eCW1 ([facility]) Bisoprolol Fumarate 5 MG Oral Tablet Bisoprolol Fumarate 5 M G 02/19/2020 12:00:00 AM EDT 1.0 {tablet} active Bi soprolol Fumarate 5 MG eCW1 ([facility]) Cholecalciferol 10 MCG (400 UNIT) UNK 02/19/2020 12:00:00 AM EDT 1.0 {capsule} active Cholecalciferol 10 MCG ( 400 UNIT) eCW1 ([facility]) Albuterol 0.833 MG/ML / Ipratropium Brom doyle 0.167 MG/ML Inhalant Solution Ipratropium-Albuterol 0.5-2.5 (3) MG/3ML Ipratropium-Albuterol 0.5-2.5 (3) MG/3ML 02/19/2020 12:00:00 AM EDT 3.0 {ml_as_needed} active Ipratropium-Albuterol 0.5-2.5 (3) MG/3ML eCW1 ([facility]) gabapentin 800 MG Oral Tablet Gabapentin 800 MG Gabapentin 8 00 MG 02/19/2020 12:00:00 AM EDT 1.0 {tablet} active Ga bapentin 800 MG eCW1 ([facility]) Bisoprolol Fumarate 5 MG Oral Tablet Bisoprolol Fumarate 5 M G 02/19/2020 12:00:00 AM EDT 1.0 {tablet} active Bi soprolol Fumarate 5 MG eCW1 ([facility]) Bisoprolol Fumarate 5 MG Oral Tablet Bisoprolol Fumarate 5 M G 02/19/2020 12:00:00 AM EDT 1.0 {tablet} active Bi soprolol Fumarate 5 MG eCW1 ([facility]) gabapentin 800 MG Oral Tablet Gabapentin 800 MG Gabapentin 8 00 MG 02/19/2020 12:00:00 AM EDT 1.0 {tablet} active Ga bapentin 800 MG eCW1 ([facility]) Albuterol 0.833 MG/ML / Ipratropium Brom doyle 0.167 MG/ML Inhalant Solution Ipratropium-Albuterol 0.5-2.5 (3) MG/3ML Ipratropium-Albuterol 0.5-2.5 (3) MG/3ML 02/19/2020 12:00:00 AM EDT 3.0 {ml_as_needed} suspended Ipratropium-Albuterol 0.5-2.5 (3) MG/3ML eCW1 ([facility]) Levofloxacin 500 MG Oral Tablet Levofloxacin 500 MG 02/19/2020 1 2:00:00 AM EDT 1.0 {tablet} active Levofloxaci n 500 MG eCW1 ([facility]) Cholecalciferol 10 MCG (400 UNIT) UNK 02/19/2020 12:00:00 AM EDT 1.0 {capsule} active Cholecalciferol 10 MCG ( 400 UNIT) eCW1 ([facility]) Albuterol 0.833 MG/ML / Ipratropium Brom doyle 0.167 MG/ML Inhalant Solution Ipratropium-Albuterol 0.5-2.5 (3) MG/3ML Ipratropium-Albuterol 0.5-2.5 (3) MG/3ML 02/19/2020 12:00:00 AM EDT 3.0 {ml_as_needed} active Ipratropium-Albuterol 0.5-2.5 (3) MG/3ML eCW1 ([facility]) Cholecalciferol 10 MCG (400 UNIT) UNK 02/19/2020 12:00:00 AM EDT 1.0 {capsule} suspended Cholecalciferol 10 MCG (400 UNIT) eCW1 ([facility]) Cholecalciferol 10 MCG (400 UNIT) UNK 02/19/2020 12:00:00 AM EDT 1.0 {capsule} active Cholecalciferol 10 MCG ( 400 UNIT) eCW1 ([facility]) gabapentin 800 MG Oral Tablet Gabapentin 800 MG Gabapentin 8 00 MG 02/19/2020 12:00:00 AM EDT 1.0 {tablet} active Ga bapentin 800 MG eCW1 ([facility]) Cholecalciferol 10 MCG (400 UNIT) UNK 02/19/2020 12:00:00 AM EDT 1.0 {capsule} active Cholecalciferol 10 MCG ( 400 UNIT) eCW1 ([facility]) gabapentin 800 MG Oral Tablet Gabapentin 800 MG Gabapentin 8 00 MG 02/19/2020 12:00:00 AM EDT 1.0 {tablet} active Ga bapentin 800 MG eCW1 ([facility]) Cholecalciferol 10 MCG (400 UNIT) UNK 02/19/2020 12:00:00 AM EDT 1.0 {capsule} active Cholecalciferol 10 MCG ( 400 UNIT) eCW1 ([facility]) Bisoprolol Fumarate 5 MG Oral Tablet Bisoprolol Fumarate 5 M G 02/19/2020 12:00:00 AM EDT 1.0 {tablet} active Bi soprolol Fumarate 5 MG eCW1 ([facility]) Cholecalciferol 10 MCG (400 UNIT) UNK 02/19/2020 12:00:00 AM EDT 1.0 {capsule} active Cholecalciferol 10 MCG ( 400 UNIT) eCW1 ([facility]) gabapentin 800 MG Oral Tablet Gabapentin 800 MG Gabapentin 8 00 MG 02/19/2020 12:00:00 AM EDT 1.0 {tablet} active Ga bapentin 800 MG eCW1 ([facility]) gabapentin 800 MG Oral Tablet Gabapentin 800 MG Gabapentin 8 00 MG 02/19/2020 12:00:00 AM EDT 1.0 {tablet} active Ga bapentin 800 MG eCW1 ([facility]) Bisoprolol Fumarate 5 MG Oral Tablet Bisoprolol Fumarate 5 M G 02/19/2020 12:00:00 AM EDT 1.0 {tablet} active Bi soprolol Fumarate 5 MG eCW1 ([facility]) Bisoprolol Fumarate 5 MG Oral Tablet Bisoprolol Fumarate 5 M G 02/19/2020 12:00:00 AM EDT 1.0 {tablet} active Bi soprolol Fumarate 5 MG eCW1 ([facility]) gabapentin 800 MG Oral Tablet Gabapentin 800 MG Gabapentin 8 00 MG 02/19/2020 12:00:00 AM EDT 1.0 {tablet} active Ga bapentin 800 MG eCW1 ([facility]) gabapentin 800 MG Oral Tablet Gabapentin 800 MG Gabapentin 8 00 MG 02/19/2020 12:00:00 AM EDT 1.0 {tablet} active Ga bapentin 800 MG eCW1 ([facility]) Cholecalciferol 10 MCG (400 UNIT) UNK 02/19/2020 12:00:00 AM EDT 1.0 {capsule} active Cholecalciferol 10 MCG ( 400 UNIT) eCW1 ([facility]) gabapentin 800 MG Oral Tablet Gabapentin 800 MG Gabapentin 8 00 MG 02/19/2020 12:00:00 AM EDT 1.0 {tablet} active Ga bapentin 800 MG eCW1 ([facility]) gabapentin 800 MG Oral Tablet Gabapentin 800 MG Gabapentin 8 00 MG 02/19/2020 12:00:00 AM EDT 1.0 {tablet} active Ga bapentin 800 MG eCW1 ([facility]) gabapentin 800 MG Oral Tablet Gabapentin 800 MG Gabapentin 8 00 MG 02/19/2020 12:00:00 AM EDT 1.0 {tablet} active Ga bapentin 800 MG eCW1 ([facility]) gabapentin 800 MG Oral Tablet Gabapentin 800 MG Gabapentin 8 00 MG 02/19/2020 12:00:00 AM EDT 1.0 {tablet} active Ga bapentin 800 MG eCW1 ([facility]) Cholecalciferol 10 MCG (400 UNIT) UNK 02/19/2020 12:00:00 AM EDT 1.0 {capsule} active Cholecalciferol 10 MCG ( 400 UNIT) eCW1 ([facility]) Albuterol 0.833 MG/ML / Ipratropium Brom doyle 0.167 MG/ML Inhalant Solution Ipratropium-Albuterol 0.5-2.5 (3) MG/3ML Ipratropium-Albuterol 0.5-2.5 (3) MG/3ML 02/19/2020 12:00:00 AM EDT 3.0 {ml_as_needed} suspended Ipratropium-Albuterol 0.5-2.5 (3) MG/3ML eCW1 ([facility]) Albuterol 0.833 MG/ML / Ipratropium Brom doyle 0.167 MG/ML Inhalant Solution Ipratropium-Albuterol 0.5-2.5 (3) MG/3ML Ipratropium-Albuterol 0.5-2.5 (3) MG/3ML 02/19/2020 12:00:00 AM EDT 3.0 {ml_as_needed} active Ipratropium-Albuterol 0.5-2.5 (3) MG/3ML eCW1 ([facility]) Bisoprolol Fumarate 5 MG Oral Tablet Bisoprolol Fumarate 5 M G 02/19/2020 12:00:00 AM EDT 1.0 {tablet} active Bi soprolol Fumarate 5 MG eCW1 ([facility]) Albuterol 0.833 MG/ML / Ipratropium Brom doyel 0.167 MG/ML Inhalant Solution Ipratropium-Albuterol 0.5-2.5 (3) MG/3ML Ipratropium-Albuterol 0.5-2.5 (3) MG/3ML 02/19/2020 12:00:00 AM EDT 3.0 {ml_as_needed} active Ipratropium-Albuterol 0.5-2.5 (3) MG/3ML eCW1 ([facility]) Bisoprolol Fumarate 5 MG Oral Tablet Bisoprolol Fumarate 5 M G 02/19/2020 12:00:00 AM EDT 1.0 {tablet} active Bi soprolol Fumarate 5 MG eCW1 ([facility]) Cholecalciferol 10 MCG (400 UNIT) UNK 02/19/2020 12:00:00 AM EDT 1.0 {capsule} suspended Cholecalciferol 10 MCG (400 UNIT) eCW1 ([facility]) Bisoprolol Fumarate 5 MG Oral Tablet Bisoprolol Fumarate 5 M G 02/19/2020 12:00:00 AM EDT 1.0 {tablet} active Bi soprolol Fumarate 5 MG eCW1 ([facility]) gabapentin 800 MG Oral Tablet Gabapentin 800 MG Gabapentin 8 00 MG 02/19/2020 12:00:00 AM EDT 1.0 {tablet} active Ga bapentin 800 MG eCW1 ([facility]) Cholecalciferol 10 MCG (400 UNIT) UNK 02/19/2020 12:00:00 AM EDT 1.0 {capsule} active Cholecalciferol 10 MCG ( 400 UNIT) eCW1 ([facility]) Lactulose 667 MG/ML Oral Solution Lactulose 01/17/2020 12:00:00 AM EDT active [facility] ([facility]) Fluticasone Propionate 50 MCG/ACT Fluticasone Propionate 50 MCG/ACT 12/07/2019 12:00:00 AM EDT 1.0 {spray_in_each_nostril} acti ve Fluticasone Propionate 50 MCG/ACT eCW1 ([facility]) Fluticasone Propionate 50 MCG/ACT Fluticasone Propionate 50 MCG/ACT 12/07/2019 12:00:00 AM EDT 1.0 {spray_in_each_nostril} susp ended Fluticasone Propionate 50 MCG/ACT eCW1 ([facility]) Fluticasone Propionate 50 MCG/ACT Fluticasone Propionate 50 MCG/ACT 12/07/2019 12:00:00 AM EDT 1.0 {spray_in_each_nostril} susp ended Fluticasone Propionate 50 MCG/ACT eCW1 ([facility]) Fluticasone Propionate 50 MCG/ACT Fluticasone Propionate 50 MCG/ACT 12/07/2019 12:00:00 AM EDT 1.0 {spray_in_each_nostril} acti ve Fluticasone Propionate 50 MCG/ACT eCW1 ([facility]) Fluticasone Propionate 50 MCG/ACT Fluticasone Propionate 50 MCG/ACT 12/07/2019 12:00:00 AM EDT 1.0 {spray_in_each_nostril} susp ended Fluticasone Propionate 50 MCG/ACT eCW1 ([facility]) Fluticasone Propionate 50 MCG/ACT Fluticasone Propionate 50 MCG/ACT 12/07/2019 12:00:00 AM EDT 1.0 {spray_in_each_nostril} acti ve Fluticasone Propionate 50 MCG/ACT eCW1 ([facility]) Fluticasone Propionate 50 MCG/ACT Fluticasone Propionate 50 MCG/ACT 12/07/2019 12:00:00 AM EDT 1.0 {spray_in_each_nostril} acti ve Fluticasone Propionate 50 MCG/ACT eCW1 ([facility]) Fluticasone Propionate 50 MCG/ACT Fluticasone Propionate 50 MCG/ACT 12/07/2019 12:00:00 AM EDT 1.0 {spray_in_each_nostril} acti ve Fluticasone Propionate 50 MCG/ACT eCW1 ([facility]) Fluticasone Propionate 50 MCG/ACT Fluticasone Propionate 50 MCG/ACT 12/07/2019 12:00:00 AM EDT active 1 spray in each nostril eCW1 ([facility]) Fluticasone Propionate 50 MCG/ACT Fluticasone Propionate 50 MCG/ACT 12/07/2019 12:00:00 AM EDT 1.0 {spray_in_each_nostril} acti ve Fluticasone Propionate 50 MCG/ACT eCW1 ([facility]) Fluticasone Propionate 50 MCG/ACT Fluticasone Propionate 50 MCG/ACT 12/07/2019 12:00:00 AM EDT 1.0 {spray_in_each_nostril} acti ve Fluticasone Propionate 50 MCG/ACT eCW1 ([facility]) Fluticasone Propionate 50 MCG/ACT Fluticasone Propionate 50 MCG/ACT 12/07/2019 12:00:00 AM EDT 1.0 {spray_in_each_nostril} susp ended Fluticasone Propionate 50 MCG/ACT eCW1 ([facility]) Fluticasone Propionate 50 MCG/ACT Fluticasone Propionate 50 MCG/ACT 12/07/2019 12:00:00 AM EDT 1.0 {spray_in_each_nostril} acti ve Fluticasone Propionate 50 MCG/ACT eCW1 ([facility]) Fluticasone Propionate 50 MCG/ACT Fluticasone Propionate 50 MCG/ACT 12/07/2019 12:00:00 AM EDT 1.0 {spray_in_each_nostril} acti ve Fluticasone Propionate 50 MCG/ACT eCW1 ([facility]) Fluticasone Propionate 50 MCG/ACT Fluticasone Propionate 50 MCG/ACT 12/07/2019 12:00:00 AM EDT 1.0 {spray_in_each_nostril} acti ve Fluticasone Propionate 50 MCG/ACT eCW1 ([facility]) Fluticasone Propionate 50 MCG/ACT Fluticasone Propionate 50 MCG/ACT 12/07/2019 12:00:00 AM EDT 1.0 {spray_in_each_nostril} acti ve Fluticasone Propionate 50 MCG/ACT eCW1 ([facility]) Fluticasone Propionate 50 MCG/ACT Fluticasone Propionate 50 MCG/ACT 12/07/2019 12:00:00 AM EDT 1.0 {spray_in_each_nostril} acti ve Fluticasone Propionate 50 MCG/ACT eCW1 ([facility]) Fluticasone Propionate 50 MCG/ACT Fluticasone Propionate 50 MCG/ACT 12/07/2019 12:00:00 AM EDT active 1 spray in each nostril eCW1 ([facility]) Fluticasone Propionate 50 MCG/ACT Fluticasone Propionate 50 MCG/ACT 12/07/2019 12:00:00 AM EDT 1.0 {spray_in_each_nostril} acti ve Fluticasone Propionate 50 MCG/ACT eCW1 ([facility]) Fluticasone Propionate 50 MCG/ACT Fluticasone Propionate 50 MCG/ACT 12/07/2019 12:00:00 AM EDT 1.0 {spray_in_each_nostril} acti ve Fluticasone Propionate 50 MCG/ACT eCW1 ([facility]) Fluticasone Propionate 50 MCG/ACT Fluticasone Propionate 50 MCG/ACT 12/07/2019 12:00:00 AM EDT 1.0 {spray_in_each_nostril} acti ve Fluticasone Propionate 50 MCG/ACT eCW1 ([facility]) Fluticasone Propionate 50 MCG/ACT Fluticasone Propionate 50 MCG/ACT 12/07/2019 12:00:00 AM EDT 1.0 {spray_in_each_nostril} acti ve Fluticasone Propionate 50 MCG/ACT eCW1 ([facility]) Fluticasone Propionate 50 MCG/ACT Fluticasone Propionate 50 MCG/ACT 12/07/2019 12:00:00 AM EDT 1.0 {spray_in_each_nostril} susp ended Fluticasone Propionate 50 MCG/ACT eCW1 ([facility]) Fluticasone Propionate 50 MCG/ACT Fluticasone Propionate 50 MCG/ACT 12/07/2019 12:00:00 AM EDT 1.0 {spray_in_each_nostril} acti ve Fluticasone Propionate 50 MCG/ACT eCW1 ([facility]) Fluticasone Propionate 50 MCG/ACT Fluticasone Propionate 50 MCG/ACT 12/07/2019 12:00:00 AM EDT 1.0 {spray_in_each_nostril} acti ve Fluticasone Propionate 50 MCG/ACT eCW1 ([facility]) Spironolactone 25 MG Oral Tablet Spironolactone 25 MG active 1 tablet with food eCW1 ([facility]) Spironolactone 25 MG Oral Tablet Spironolactone 25 MG active 1 tablet with food eCW1 ([facility]) Spironolactone 25 MG Oral Tablet Spironolactone 25 MG active 1 tablet with food eCW1 ([facility]) Spironolactone 25 MG Oral Tablet Spironolactone 25 MG active 1 tablet with food eCW1 ([facility]) Spironolactone 25 MG Oral Tablet Spironolactone 25 MG active 1 tablet with food eCW1 ([facility]) Spironolactone 25 MG Oral Tablet Spironolactone 25 MG active 1 tablet with food eCW1 ([facility]) Spironolactone 25 MG Oral Tablet Spironolactone 25 MG active 1 tablet with food eCW1 ([facility]) Spironolactone 25 MG Oral Tablet Spironolactone 25 MG active 1 tablet with food eCW1 ([facility]) Spironolactone 25 MG Oral Tablet Spironolactone 25 MG active 1 tablet with food eCW1 ([facility]) Spironolactone 25 MG Oral Tablet Spironolactone 25 MG active 1 tablet with food eCW1 ([facility]) Spironolactone 25 MG Oral Tablet Spironolactone 25 MG active 1 tablet with food eCW1 ([facility]) Spironolactone 25 MG Oral Tablet Spironolactone 25 MG active 1 tablet with food eCW1 ([facility]) Spironolactone 25 MG Oral Tablet Spironolactone 25 MG active 1 tablet with food eCW1 ([facility]) Insurance Providers Payer name Policy type / Coverage type Policy ID Covered republican ID Covered republican's relationship to mena Policy Mena Plan Information BHARTI [id number] SP [id number] 800 EMEDNY [id number] SP [id number] BHARTI [facility] [id number] S [id number] BHARTI [id number] SP [id number] ANSI-Commercial [id number]-k024-gc841vaz11a4 42t5x339-4rp1-766a-j306-ve472buv41y1 ANSI-Medicaid [id number] ANSI-Commercial 4jo9ht9r-uok3-8m79-gh76-5xs259906m9o 7ho5st3k-ana2-2x37-ta51-0sg973393i9o ANSI-Medicaid [id number] [facility] Medicaid [id number] Self [id number] [place] [facility] (HMO) [id number] 800 Self [id number] Medicaid Medigap Part B [id number] Self [id number] [place] - Medicaid [employer] (HMO) [id number] 800 Self [id number] [facility]-Medicaid [id number] MEDICAID [id number] SP [id number] ANSI-Medicaid [id number] ANSI-Medicaid [id number] Medicaid P [id number] S [id number] ANSI-Commercial 400i6j3p-bx55-282l-7n1c-jg3m0gqd65u3 507d5t1s-ff29-559i-1b2k-tp5e6rmp48o5 ANSI-Medicaid [id number] 8l1hhh28-r8hb-8qyk-cx23-oh1m3hfcf0rt ANSI-Commercial ggh3wlph-9no2-7o6p-632q-bm70jh99whv0 xvm0sfbx-9ro9-9z8z-244s-sx51hr24ccc9 ANSI-Medicaid [id number] ANSI-Commercial 410x9o38-t317-2707-kq3a-76dfe39330d0 413j2x85-u606-9269-if6d-00owt01178m5 [facility] [id number]-[id number] [facility] [id number] ANSI-Commercial 8bl3s001-811f-1810-5589-5989bcw1q173 6pq6m379-219c-6003-9844-1215tho9b514 ANSI-Commercial 7emd7xw2-1521-5622-5yuj-204281n12601 8kbd0te8-2363-0327-6peg-891932f89514 ANSI-Commercial 101715o5-3341-11z7-6224-950a8ej5229p 099508z0-9610-00v3-7158-977l3xy9632s [facility] [id number]-[id number] ANSI-Medicaid [id number]-[id number] ANSI-Commercial 7cb0z0j0-uo9i-11q5-n006-4p398r8m66a4 9dh0z0t4-lm2b-41i1-n964-2f016u3x57n4 ANSI-Medicaid [id number]-[id number] ANSI-Medicaid [id number] [facility] [id number]-k389-88ao-rw27-1p4ktx8wv8fy 35238895-k635-12na-hx64-5d5vam7qv5zj ANSI-Medicaid [id number]-88on-37lh-[id number] b9f5v62g-88or-93eq-16me-q9j90lc5u79m ANSI-Medicaid [id number]-82d6-9ec3-7pr7-[id number] 71l4l27t-52y2-2ip0-4ui9-u58zsqo1d9rz ANSI-Commercial b8455wio-9ez9-6h06-48c0-7196uq153694 c8485qzc-8rn0-7u19-62n0-3860ia882029 ANSI-Commercial r139922n-95gn-2f0s-n677-da02c28115i5 r200358l-84no-7o5o-j061-rp84l09247q7 ANSI-Medicaid [id number]-a0zm-7r84-[id number] 0xj4b53r-c3vy-5a70-[id number] ANSI-Commercial 4e505d7n-7z10-5c9u-q9p2-6cj4z2056898 1q298e2o-6v25-5u6l-d1a5-3wa2k6523603 ANSI-Medicaid 47sevg65-xmci-8738-ocfo-[id number] 06otws23-vmql-0736-xmcr-164x117s09jx ANSI-[facility] 0467974e-m425-14b9-p75v-a58c651r62d8 5169249m-l686-90v4-c18j-s84c384a97s4 ANSI-Commercial bh18n956-8952-4123-lf6r-1soq2iyfp1l7 as52g260-7939-7897-yx8x-3rpt0asiy9f6 [facility] k4i81101-42e5-7dch-[id number] d1c31874-60b3-8pqj-6g93-9ft68i747080 ANSI-Medicaid [id number] 1565v9qq-01g7-5wx1-56k7-me84bu6450c9 ANSI-Medicaid [id number]-5dn4-0e29-[id number] 5q0w5o11-82hy-2ea8-9p57-n89c4a98493z ANSI-Medicaid [id number]-8966-zx66-[id number] 51voa779-h9lh-2891-ah52-zdk801ipc327 ANSI-Medicaid [id number] 6794356q-z1x1-2452-8e68-[id number] ANSI-Commercial 0o20w51i-7o48-318z-zjz7-k10a5xg679n2 9t10q32j-7p10-151i-edm7-v83e3hs171f0 [facility] fifp22v5-g2z3-1skk-u00x-607366n4rm88 nnek02u3-c1r8-2msa-r50e-976003b5tt51 [facility]-Medicaid [id number] 7svg4801-0212-0143-o83e-[id number] ANSI-Commercial r40es822-sm95-100v-22y4-2734s8v7e96b d76pg172-eg40-096d-79m3-3308m3z3e19a ANSI-Medicaid [id number]-m8ryj85u4sjh gl04f9l6-4t73-9mx2-019s-k1pov84g0ano ANSI-Commercial 5919q62d-ewg3-37k7-y339-v0106528g30a 0496x71x-awx4-77x1-s373-w7524496h89s ANSI-Medicaid [id number]-5r0k-e26o-[id number] l89l43w7-0nxh-1f3j-l27f-2s889333nxf6 ANSI-Commercial ctae123j-i71u-0n83-7970-5749m1md661c noje056e-a52g-3o02-8054-5740f4dx873u ANSI-Commercial 3l285429-0ct3-3202-p22j-16v39xf3lk6d 6f930843-1wh5-2911-g66d-79l76ln2tl9z ANSI-Medicaid [id number]-9kdb-4787-7kbc-818j88i8u4dv 3cg36g8e-8omi-0276-2jfn-027q06e5n0rb ANSI-Medicaid [id number]-[id number] ANSI-Commercial 8n210114-1217-1130-kejj-3s4f1i2ij8ra 3u752637-9673-1203-dfdu-9t7a2k8dv1da ANSI-Medicaid rw326p4q-uf0z-62mk-bw42-1n4w7u051ue6 dy620i0a-ca5c-24kd-ku79-4n4g2e173cc3 ANSI-Commercial 872iyc5s-275j-14x8-f875-493pm0mi58n1 907zfi8l-605v-99k1-m286-701rd1tr65c7 ANSI-Medicaid fi3cuzci-xo8r-9525-[id number] bk9ajkwl-wu3n-0276-v899-5j6z600ne6rj ANSI-Commercial 241ks748-56l6-0ng9-vasr-3r57745c5802 752io587-61i0-3py6-qttj-6f39019v6059 ANSI-Commercial cph0vm06-wfsv-6jm5-9685-30767k27n6tk ymb6aa57-yszs-2vr6-8572-27252f30f6dr ANSI-Medicaid [id number]-[id number]-[id number] 0605878y-y76u-2ow4-m38r-1h082i73da27 ANSI-Medicaid 6wt1tge7-3t86-33b7-[id number] 9cy8rpu6-5x80-68q4-[id number] ANSI-Commercial 54l9d7mh-7nbg-9d9b-zm2a-m833305331f8 24o6d1rl-5iqb-3h5z-bn9r-y466669300o2 ANSI-Medicaid [id number]-ftt7-ib96ty6lv30t v7sy3q80-5wo6-3ik7-zrh2-fs14kq5fl39y ANSI-Commercial ojq96842-9p7q-8dqw-6ht6-n0730ms0d13i gze19183-5r3k-0qlb-4kf7-e7933yv9g05s ANSI-Commercial 6nt10456-dg09-3a0i-3p50-829b23v2zva3 2bm31817-qa13-5o4p-5j15-186t91t8wna7 ANSI-Commercial 7h45o0w2-5649-2wk6-vux2-3q0cyjj99iw9 9g33u2d8-1727-1fj2-kzt1-1l2qbfv38uu6 ANSI-Medicaid [id number] a0i8ew22-292b-0837-m256-s1v7gw6a4404 [facility] [id number]-qg37-5ndh-[id number] [facility] [id number]-[id number] 3yfzz9b9-6510-3h42-lh3m-[id number] [facility] [id number]-r6of-[id number] tl27mo02-c402-1d24-r2el-o6445hoz5l71 ANSI-Commercial 9mw567az-q0zu-8347-9x94-jse26c44ivj2 2we192qc-x2br-4732-0m86-uyc25u18yxj7 ANSI-Commercial 91m1s17u-876g-6os1-wq21-50379cy13167 21k7j78w-626w-8gj5-ni49-99998ed01441 ANSI-Commercial 24k3r55n-135q-3288-011x-838onv1bp423 97b2k77u-382q-9596-167i-174piq0ol770 ANSI-Medicaid [id number]-6556-j67k-[id number] 1803983k-ednn-9459-d29h-6b11rl7v42w4 ANSI-Medicaid [id number] n765qx78-9g60-5fu7-1703-93h968z7h18f ANSI-Commercial 3cmod09j-n465-8p89-564i-yr1qo56c515k 2tpmd89z-g834-1c23-476o-md0cd47q180w ANSI-[facility] a44n4121-tx47-7530-xe0h-z5004i84gl9g x64q2354-am45-7163-zb0x-p9065o97ea6x ANSI-Medicaid 63nn8c6y-8f7b-4ix5-1722-o4i6vvk896cx 93fd5o3b-0k8u-9jb2-6825-u7s4cgf980ss [facility]dm 68795fl3-03tt-20y1-ul36-670dd8455p87 21047aq7-93xc-89v7-vz44-893yz9348k43 ANSI-Medicaid [id number]-u7hz-4666-[id number] gg55kl1d-m2xw-5181-r9m9-[id number] ANSI-Medicaid [id number]-5156-8ddl-8uy8-[id number] 8o53h07p-5667-8coi-6ig3-q96m2r780w60 ANSI-Medicaid [id number]-[id number] 7mx4w54r-rcp4-5o56-0643-2go8771c272g ANSI-[facility] 0o5198w3-063h-377y-03b3-o7f0z91i3756 1b6635w7-373o-835i-93a8-h3c3t14n0877 [employer] [employer] u5t85029-4rae-71io-44pm-915x31b079q8 x1g66781-4mwo-19nl-10gj-294u99d161x8 ANSI-Medicaid [id number]-[id number] y1x1c8v1-4i12-57k6-r8q8-8j793411011s ANSI-Medicaid 1l7memi4-51w3-9tf0-[id number] 2d8iqlj3-92n5-6tt6-d489-918m67069wd7 ANSI-Commercial 29x6zs42-it8o-29tc-b1o5-06rva40382xy 54p5nl66-nw5d-51zu-l2e9-24yob45928sl ANSI-Commercial ze1o4081-f726-31f2-pf3c-6k47j26380jx qa4h0245-x042-95g2-qw3q-2s01c60334td ANSI-Medicaid 660c8bmw-5266-9ago-6u5u-[id number] 632m8tmm-8713-5tjt-7x1n-6ny1ocu6ws53 ANSI-Medicaid [id number]-[id number] 213398z8-061y-9k06-7284-81968m0477d0 ANSI-Commercial 6z56043m-9c63-6139-m2n4-m83p7213c28t 4f98561c-0p91-4232-n7u5-h45p3842s64k ANSI-Commercial 700ex0ls-ta2i-2b41-73e9-7l731q49r722 461fx3ka-ng2y-7j89-55e9-1r504k40e143 ANSI-Commercial 3i571967-af1v-534u-l36v-b45nan7c3fln 4x767413-cx0y-949e-w64z-b20kqp5n0ohq ANSI-Medicaid gj98khjq-33t0-238e-r13e-[id number] ex16zeqj-56w0-118q-w32w-b5680li74b6q ANSI-Commercial 6sd0wtbn-98uo-50b4-91n5-sdn36k7147b2 1wq1avyw-86cs-03x5-50k8-wbr37u2377b2 ANSI-Medicaid 7l3d1o96-183s-83sj-[id number] 5i2n4p10-657m-83wu-4029-x8802pt8an96 ANSI-Medicaid 6w02b2f3-14q5-201i-q2am-[id number] 3j77d1d7-00i9-613f-e5co-106264y0j589 ANSI-Medicaid 286t2n05-x228-9g08-64xo-354op6iw4wlt 324x5j33-g197-4p64-80gl-501kx2er7ypn ANSI-Commercial 8i5d2b09-cz44-6z32-g1oy-s58ag7owc1n8 2n0x9i70-xe11-2i09-s0ux-x89xt6pmn1k0 ANSI-Commercial 66j14172-2z0d-00m5-2l61-1ps395g0390u 37a66318-1o2a-01g7-6w68-8gs116u9494u ANSI-Medicaid 9fj93xi8-07x5-3d02-4935-vad1x4s5lqh9 5eb21ci8-00t9-8p40-5714-vhg8n6p7shs0 ANSI-Medicaid [id number]-31y7-21h4-6omin3lowb77 f0v78955-6xah-78q7-18l0-2eyfo0frjl68 ANSI-Commercial 250694m8-50br-87b4-54f5-7630cd45omjf 384678d1-68gn-01f6-18j4-2893vi66qddt ANSI-Commercial 6d205fd3-k082-4411-76i4-0l455882689s 1f194ys6-b350-8614-35p4-8d804231174i ANSI-Commercial wtt646t5-4865-4v83-0500-75zi8gfzl66v zvd147c5-1153-5h95-1094-87rm6wuan86p ANSI-Medicaid n188x96e-7614-9k6s-v07p-7z148w9orrlc y942z49f-2064-2x7x-k71l-1h648k2fdeax ANSI-Commercial t825s743-75pu-9x70-mi24-4q4y339ahox4 p586y544-90us-8f55-vb72-0q7j019cmzw6 ANSI-Medicaid [id number]-p759-v4t4w039sycn 386jm870-7665-667g-m726-i3v1m531bcdu ANSI-Commercial i3a962i5-3l40-2971-vm88-86tne09584j1 q9i022j2-0b68-7762-me21-10lcy18730d8 ANSI-Commercial 4216x62n-0rs1-5c30-a67n-2r1tjm554198 9052x46i-8gx8-7w54-z43r-7u0xdi960028 [facility]-Medicaid [id number]-v701-[id number] vgjg0gw4-71j6-639i-y568-az07vs8s6mm9 [facility] [id number]-q874-29l0-d55o-[id number] ANSI-Commercial 374s287p-2c2x-01l5-vt86-14j669e74485 324b379c-8i0h-74h7-st60-56e206l55875 [facility]-Medicaid [id number] 908t0hcc-9894-0m89-ji6c-[id number] [facility]-Medicaid [id number]-[id number] 519470xo-63a8-5544-h3i1-1v9aij6oo0o6 ANSI-Commercial d1w2juaa-4502-573d-v13b-1j56p14m2516 c0k4acym-2440-371d-y04d-8m47e15r5565 [facility]-Medicaid [id number]-6tdr-[id number] a80a22c6-zp2r-8htz-j58u-5x7i3u128hjj [facility] y146t6v1-ur62-84go-3471-5m038y5l90v2 d948n1a4-oc66-02vx-4489-6a751c1y47g5 ANSI-Medicaid [id number]-[id number] [facility] sggb4600-3f5x-932z-31y3-mv388at9q3u7 yrqg5818-3g7o-504u-70i6-ym585ot5u0t3 [facility] 9980d62j-66a9-38th-834h-921j70j16091 8236j16a-76f4-60qa-751k-050g80f37525 [facility] 52973d75-6fo6-5kra-0868-5584e0i2wy32 17849b84-6ak9-4udo-6875-4863k2w6zn16 [facility]-Med[facility] [id number]-x42d-[id number] ryp5i9yl-i23m-2es8-5quf-[id number] ANSI-Medicaid [id number] [id number] [facility] [id number]-4e6o-[id number] 25934i24-9o14-99cc-0y8e-k0211psm8d4d [facility] 672uk87d-23ro-269x-1556-q5hn78w3e6t0 615nf04r-83py-985s-7030-v1uy54s5m0m0 [facility] s7401g62-5l6y-7u43-x180-sm55x8u95155 w9406u15-3w3k-0u61-p314-yg65g7g76511 [facility]-Medicaid [id number] r555c75u-j02v-0n65-4u0o-[id number] [facility] [id number]-xl27-587n-9o5i-[id number] ANSI-Commercial 1u86h47k-6s59-5dy5-11q3-ih936qde6048 9z29o94o-6j20-8st4-57r6-hr561hnp1872 [facility] 530h719y-fm66-1b72-t6h9-x5qh1179u060 042p699u-uy86-8u78-a2h7-j1lq8073z663 [facility]-Medicaid [id number]-j26f-[id number] [facility]-Medicaid [id number]-uhxz-[id number]-[id number] 97f4iva5-jnxw-5zt6-fi16-z2h6vh8e4z4v [facility]-Medicaid [id number]-uf6w-6326-590d-[id number] ANSI-Commercial t9477363-8336-7qx4-970v-1k5iu71j364q c0530574-6395-4st2-097g-8s0rk61b053z ANSI-Commercial doq697qg-z60t-97c1-0484-3ct63igfj5ey abm285xn-c91v-55s2-8056-2qx85xllg8bk ANSI-Medicaid [id number] ANSI-Commercial 3o1gk415-285p-481m-d292-o9ts1ion4wze 1d2ux629-396l-579d-f717-y9zc0xtd6jqk ANSI-Medicaid [id number]-[id number] [facility] 71m4479b-u137-4082-wawu-6a23j32628f5 18s6455p-v222-4229-cydd-8f98i97986t4 [facility] eb92547b-0c4b-23qg-74j8-624562m5wo7e tu40026p-2e0s-80xb-50w3-099752w5ea0x [facility] yo09x782-nss2-05q0-6fo5-21e859sbo609 yf92f885-dla0-51w5-5nf3-37x022osk733 [facility] [id number]-[id number]-[id number] [employer]com[employer]-Medicaid [id number]-[id number] ANSIWis.dm 2bca565f-zk5p-0h67-p390-44zddu4293c8 7ofo273t-xt6n-9s87-v677-91nhlp2169k3 [employer]comI-Medicaid [id number]-[id number] [employer] w81cw333-ye1z-001g-7408-1atf3tz172bd v12ry274-en9v-735i-2433-1qpm9pl639hh [employer] [employer] [id number]-dqem-45l8m23v1qc6 ANSI-Medicaid [id number]-9959-[id number] ANSI-Medicaid [id number]-t56l-737d-[id number] ANSI-Commercial d2fusxl4-dv63-8932-7kx1-9777nj8d8k8l e9fcwef9-ov66-6162-1dt4-2964ny6i3l2s ANSI-Commercial 60261ow3-8g4p-21w5-sc37-qg39608l3td1 14297pp6-3z3f-90x3-jj20-da77080f8oe9 [employer] 8j397308-a4f7-8a4s-5911-k812007283l0 0r400800-w6j7-3k3y-9106-a937071052i9 [employer] [employer] 33c96lh7-766k-833c-q3s6-24v2b831c8ny 76u52ex1-890e-905y-c5j5-90g7s369u4fm ANSI-Medicaid [id number] [facility] [id number]-[id number] ANSI-Commercial k59l550l-6wh5-719m-5lk6-95xir419400i f58u234f-4ad4-467l-6zm0-48xms462404e ANSI-Medicaid [id number] ANSI-Commercial 166u58im-4u6b-9j17-l360-78g3g4g6a76z 403e44ld-9h4r-4e26-y222-51k2x0x7q62l ANSI-Medicaid [id number] [facility]-Commercial 6314mr9o-v76i-37k2-9609-4191716tb6n9 0678oy4s-p02w-26t0-4079-8463716hd3w0 [facility]-Medicaid [id number] cs0pj5et-o2hp-75o9-z7z4-[id number] [facility] 79119n7m-3o17-61ri-1573-9438d87151s3 25207d4f-5r99-75bg-2220-1389r52372q5 [facility]-Medicaid [id number]-qc4p-883q-dri6-u5y3e05i5m6t [facility] rl9553eg-4n94-5jxl-6q94-ud36ey72kn5l zy2621ez-1g44-4eml-2u52-xr04st62fr7q ANSI-Medicaid [id number]-[id number] ANSI-Medicaid [id number]-87b0-9t1h-v98v-w0v13xz3u3k0 [facility] 6ita0n28-84e5-18zj-ym7b-5n3540l5ct08 5mft8v11-15b4-24vw-yl9k-7i7933r1kr58 ANSI-Medicaid [id number]-kolk-9460-sv16-fto0e595jq6q [employer]comIWis.dm 1q671178-7t22-4m77-a821-ty6sfh12r40r 6t753297-5h75-6u00-j768-zb9spr31l07x ANSIWis[employer]dm m8a739z4-sv29-1lbh-r070-j54860v78793 p6w639c0-tq53-0eso-i017-f84074x90500 [employer]com[employer]-Medicaid [id number]-adp8-[id number] d019bn27-4qd8-0n32-rjh7-su564um4y7l6 ANSI-Medicaid [id number] [id number]-d9ty-1q017oa5mfqo [employer]dm 6mz3823t-6n40-5ns6-b75x-5jp1769zl034 1ki8130r-6m18-0rc4-y40a-8ke4965zl755 [employer]comIWis.dm 547009b1-1ns7-2110-wg5n-k6666g62024n 202568r2-6dr4-0655-yq6s-w3935n46782n ANSI-Medicaid [id number] ANSI-Medicaid [id number]-v711-[id number] [employer] [id number] p5g9tr92-lid2-65vw-66iq-[id number] [employer]dm whie31sz-7kl2-71dv-yjf6-x33t5e12plq9 ugao18qo-5lb0-13wj-kik6-t34n9o10rgb8 [employer]dm q6p10mvs-zr60-4409-837a-4448869he343 k2i57bky-gb17-8925-372b-5195891yb624 ANSI-Commercial 1t7089s2-w42s-3r77-929d-46xks0g61402 7q7796d6-k86d-2i75-175e-81wbr7x76640 ANSI-Medicaid [id number]-2230-43ql-[id number] ANSI-Medicaid [id number]-[id number] 28y4y6c8-819d-5450-w4wd-n3ti4t74mo8v ANSI-Commercial 766jpyyu-m306-895yu944-864s-2o93-lhue2s3z7k25 873gwltm-e532-274xa268-155p-8c00-bqch4i8q4y44 ANSI-Medicaid [id number] q460763g-583g-2q57-x516-0dxxb9cq57z8 ANSI-Commercial lq32871f-9391-0412-3397-o598a466ue92 kz61110i-0319-3194-4167-g860t820yb83 ANSI-Medicaid [id number]-[id number] 13g3x0i7-6hln-08h6-0907-j24g471d2i2o ANSI-Commercial qe95y885-82l3-0r32-787s-3414vv670ay3 wh95q153-53b5-5j74-091g-4056jt946he0 ANSI-Medicaid [id number] 06qc19b0-0067-7a2z-c922-13581113p99v ANSI-Commercial 4e2v5075-8ve0-7748-u555-95bv8f434663 3f4k7860-1cy1-9788-u034-99gn0i265275 ANSI-Medicaid [id number]-o33b-[id number]-p05a-7vn0-6153-jy54e07ccyj1 ANSI-Commercial 4i876w78-fpz1-29i6-09w1-db8fr8s34925 0z078m74-ybu3-50p2-78j6-um4ue9t87088 ANSI-Medicaid [id number]-[id number] k0w542r1-0x58-59o6-5cqs-0w4c61kp003e ANSI-Commercial 0tm71l7e-2426-754t-n8j3-se50z0ch182s 4dt65e5b-0337-123v-w5e7-jz74b5ll652b ANSI-Medicaid [id number]-flg5-[id number]-ywx2-m24f705wbzd8 ANSI-Commercial e820xigl-16o1-01b3-o4ag-326272p7872s j224ycov-67h2-50z1-g9jo-330418h1280d ANSI-Medicaid [id number]-114k-7980-li60-47yc2c1s9150 ANSI-Medicaid [id number]-60q0-6401-[id number] xto25gtu-76o0-9325-n84b-363vpt040232 ANSI-Commercial 5933v5w2-o33i-5z92-4bfg-b79qa48qc9vy 8677h5p0-s43s-4y35-0hih-y80wc50gf5iz ANSI-Commercial s0y66k61-t1xc-9pos-8lzo-93870z3i8u57 y6f86b09-o0fb-1gdr-0ami-56729l6r1w85 ANSI-Medicaid [id number]-a49k-94df-[id number] 3o2cvx78-h41p-68bv-u36u-8e1920f418bl ANSI-Commercial cp0mq2j7-k992-174x-g804-989q73li2662 mo9xt3p0-o114-045v-b696-744m21hk6463 ANSI-Commercial u9589j00-3612-8773-xp07-1465kg1i82hv a5974o72-8706-5213-mk82-6974gp1g46xt ANSI-Medicaid [id number]-ef9d-0n07-95km-[id number] 1t27m04r-rm9w-0b68-78nb-0631l0khr4r2 ANSI-Medicaid [id number]-8r0j-[id number] 03em8f38-j471-69iz-6k6n-5wc4fk5qg196 ANSI-Medicaid [id number]-j2u3-20oa-[id number] ANSI-Commercial 14q365b8-2t37-7890-k866-511r79c13811 74e674m6-0u04-9423-j534-783y68v74808 ANSI-Commercial bve0z0s3-5075-9d30-sns7-48c6s0k1g654 lwq6r6e1-9749-9q84-msm2-70h0j7c0r117 ANSI-Commercial 6522b5v6-036p-198d-4896-0n85x2k2812e 1403v0k5-881l-969t-9034-9t25u7t1286x ANSI-Medicaid [id number]-9756-427e-2s16-9k31k2vz4808 ANSI-Commercial 343s9a86-i17j-9v07-0s0o-7f771nn4z1x8 217w0j34-h06d-9a19-7x9r-7z319wt3e9n3 [facility]-Medicaid [id number]-x40s-6u2k-m809-0808g2euy16g [id number]-x02y-1z0h-[id number] ANS-Commercial 41o09239-h13p-6j49-4jj1-zwr5xvoqh1dx 78i76692-x14r-2n76-5kr8-iej8sgcvp0am [facility]-Medicaid hr5trz3o-k44v-0lgp-m19v-31983ildimks hr2obj4u-t54c-3hdt-h97e-28773zutbggq ANSI-Medicaid [id number]-[id number] l67t2p81-qc69-2362-01i8-dfn3t18sa3lt ANS-[facility] 28215dln-9tn1-8578-ub8g-8wpf9h21b858 07434nve-6kd9-9884-qd5n-0srp2x75t125 [facility]-Commercial 6ufb4b9n-a247-81t8-71m2-75s9913b4e57 3ern5y9f-n935-14a5-39j7-95e0660x1p24 ANSI-Medicaid [id number]-h05f-[id number] [facility]-Medicaid [id number]-[id number] 9fs5hn40-50g3-3s6b-hyy0-3158h7o752y2 ANSI-Commercial 0k779f62-5904-1v64-7834-5j83169574ag 7l806z86-8379-4u32-5399-4w47427812dr [facility]-Medicaid [id number]-wg60-0mp5l6m897iw ANSI-Medicaid [id number] [id number] ANSI-Commercial j95c1b19-x656-475h-v202-ce9066e555s4 r24a3j14-v263-796r-f875-bu0482z083s2 ANSI-Commercial 61729p2y-82ee-840a-46b5-44du2895632u 61912c2a-86ah-425a-91s5-38aw9752060n ANSI-Commercial 4101734n-5211-0143-n7f3-0c99206nj48s 5010451m-4650-5388-b5t8-2c53671sb54k ANSI-Commercial f59r43hh-710m-1oqt-z077-1s021d18536o k78h54pp-306t-2zcb-e837-0s830l06806o ANSI-Medicaid [id number]-799376awkwvq ANSI-Medicaid [id number] 38y5443b-6a22-5mto-g890-av40v9m05s66 ANSI-Medicaid [id number]-[id number] ANSI-Commercial 8614y0p8-5lx7-1953-3m2l-048n14h18m91 7116k1s9-0xp5-5894-9v0p-852n67y77l09 ANSI-Commercial 65vs816p-3h37-7323-25a5-9409r5r37zpn 69uk884s-4h08-6125-86y9-3574m2f80kqp ANSI-Medicaid [id number]-fl1i-[id number] 2980koy0-96q9-0eh0-bp2h-h0i1b6051v36 ANSI-Medicaid [id number]-[id number] ANSI-Commercial e2i74s79-n830-22b9-m6d8-86249631ze70 a8f65p13-y798-65s3-e7t2-81030224pu57 ANSI-Commercial s0fi7715-su00-8332-x6v5-3yqf9v2520eg n6jg8758-ka82-2504-g7v9-8tsz1d6260bj [facility]-Medicaid [id number]-[id number] [facility] [id number]-[id number] ANSI-Commercial 7f0wgqpb-h2lo-176d-2622-4a12643q92e7 8m4bdpzd-u4ub-394k-2869-8t63547n71w2 [facility] [id number]-[id number] ANSI-Commercial u1e06655-46k3-9313-974t-h11329932zx3 s3s18951-48n2-8781-379x-e71099033xp2 ANSI-Commercial 9e652sd1-1g67-4n7m-tk2a-2bjj76605ien 8b182ax3-9g32-4x6k-pz5g-8xwc71378bib ANSI-Medicaid [id number]-x8yc-[id number] m8sc0912-2xxs-1t83-i4vl-d7pt4d0a7drr ANSI-Commercial 460w25be-ype3-18w8-hy43-281m0nf8990l 675p94dk-taz6-14q1-gi79-557c8lq7826g [facility] [id number] 0hvz8ah4-h340-3766-z317-gbpe801rdx83 ANSI-Medicaid [id number]-84t1-1741-wmj7-1f7nw930u691 ANSI-Commercial 8r5d0s79-31j2-4p9z-e7t8-n3kcz006d814 4a3h8z02-99h9-7q3p-i0n7-m0chn963s513 ANSI-[facility] qcht3q3k-q703-77qr-2w3r-6665se32av1l tcie0i1y-u729-68uz-4n7r-7326wt90gx9y ANSI-Medicaid [id number]-[id number]-[id number]-4i20-9jk5-sa94-ej6hnx3127ce ANSI-Commercial mobsf990-fk25-6t58-440n-o891cza8uk54 mtgny300-hq86-2e52-557o-w189tue1qs65 ANSI-Commercial eb27s86h-tb05-488e-3j71-fst0842h9d0g di99b81e-ez79-752z-2x35-csx0895x6q9m [facility] [facility] [id number] [facility] [id number] [facility]-Medicaid [id number] [facility] [id number] [facility]-Medicaid [id number] Problems, Conditions, and Diagnoses Code Display Name Description Problem Type Effective Dates Data Source(s) I89.0 362559997 Lymphedema Problem 09/10/2020 12:00:00 AM ES T eCW1 ([facility]) M81.0 73245715 Age-related osteoporosis without current pathological fracture Problem 07/09/2020 12:00:00 AM EDT eCW1 ([facility]) 853447735 Chronic diastolic heart failure Chronic diastoli c heart failure Problem 04/02/2020 12:00:00 AM EDT [facility] ([facility]) [id number] Edema Edema Problem 04/02/2020 12:00:00 AM ED T [facility] ([facility]) [id number] Electrocardiogram abnormal Electrocardiogram abnormal Problem 04/02/2020 12:00:00 AM EDT [facility] ([facility]) 080101482 Dietary management surveillance Dietary manageme nt surveillance Problem 04/02/2020 12:00:00 AM EDT [facility] ([facility]) [id number] Paroxysmal atrial fibrillation Paroxysmal atrial fibri llation Problem 04/02/2020 12:00:00 AM EDT [facility] ([facility]) I50.32 Chronic diastolic heart failure Chronic diastolic hear t failure Problem 12/07/2019 12:00:00 AM EDT eCW1 ([facility]) J31.0 74789188 Chronic rhinitis Problem 12/07/2019 12:00:00 AM EDT eCW1 ([facility]) J31.0 69682122 Chronic rhinitis Problem 12/07/2019 12:00:00 AM EDT eCW1 ([facility]) I50.32 Chronic diastolic heart failure Chronic diastolic hear t failure Problem 12/07/2019 12:00:00 AM EDT eCW1 ([facility]) J96.11 992782535 Chronic respiratory failure with hypoxia Problem 09/23/2019 12:00:00 AM EST eCW1 ([facility]) D73.1 10606470 Hypersplenism Problem 09/23/2019 12:00:00 AM EST eCW1 ([facility]) D61.818 323210063 Pancytopenia Problem 09/23/2019 12:00:00 AM EST eCW1 ([facility]) I48.91 58404563 Atrial fibrillation, unspecified type Pro blem 09/23/2019 12:00:00 AM EST eCW1 ([facility]) Z87.01 852018040 Hx of bacterial pneumonia Problem 09/23/2019 12:00:00 AM EST eCW1 ([facility]) Z87.19 222043407 H/O: UGI bleed Problem 09/23/2019 12:00:00 A M EST eCW1 ([facility]) J96.11 784973864 Chronic respiratory failure with hypoxia Problem 09/23/2019 12:00:00 AM EST eCW1 ([facility]) D73.1 25004522 Hypersplenism Problem 09/23/2019 12:00:00 AM EST eCW1 ([facility]) D61.818 604303656 Pancytopenia Problem 09/23/2019 12:00:00 AM EST eCW1 ([facility]) I48.91 03084248 Atrial fibrillation, unspecified type Pro blem 09/23/2019 12:00:00 AM EST eCW1 ([facility]) Z87.01 363355180 Hx of bacterial pneumonia Problem 09/23/2019 12:00:00 AM EST eCW1 ([facility]) Z87.19 139994895 H/O: UGI bleed Problem 09/23/2019 12:00:00 A M EST eCW1 ([facility]) Surgeries/Procedures Procedure Description Date Indications Data Source(s) Immunization: Flublok Quadrivalent (18 years & older) 0.5mL IM (Influenza) 07/09/2020 12:00:00 AM EDT eCW1 ([facility]) ECG ROUTINE ECG W/LEAST 12 LDS W/I&R 04/02/2020 12:00: 00 AM EDT MED[facility] ([facility]) Results ID Date Data Source Basic Metabolic Profile (BMP) 10/15/2020 12:00:00 AM EST eCW 1 ([facility]) Name Value Range Interpretation Code Description Data Skyla rce(s) Supporting Document(s) 15 7-18 BLOOD UREA NITROGEN eCW1 ([facility]ly [facility]) 0.72 0.55-1.30 CREATININE FOR GFR eCW1 ([facility]) 91 70-100 GLUCOSE, FASTING eCW1 ([facility]) > 60.0 >45 GLOMERULAR FILTRATION RATE eCW 1 ([facility]) 111 98-107 CHLORIDE LEVEL eCW1 ([facility]) 145 136-145 SODIUM LEVEL eCW1 ([facility]) 4.4 3.5-5.1 POTASSIUM SERUM eCW1 ([facility]) 28 21-32 CARBON DIOXIDE LEVEL eCW1 ([facility]) 9.0 8.8-10.2 CALCIUM LEVEL eCW1 ([facility]) ID Date Data Source CBC with Differential 10/15/2020 12:00:00 AM EST eCW1 ([facility]) Name Value Range Interpretation Code Description Data Skyla rce(s) Supporting Document(s) 3.24 4.00-5.40 RED BLOOD COUNT eCW1 ([facility]) 3.1 4.0-10.0 WHITE BLOOD COUNT eCW1 ([facility]) 34.6 36.0-47.0 HEMATOCRIT eCW1 ([facility]) 31.8 27.0-33.0 MEAN CORPUSCULAR HEMOGLOB IN eCW1 ([facility]) 106.8 80.0-96.0 MEAN CORPUSCULAR VOLUME e CW1 ([facility]) 10.3 12.0-15.5 HEMOGLOBIN eCW1 ([facility]) 19.3 11.5-14.5 RED CELL DISTRIBUTION WID TH eCW1 ([facility]) 64.9 36.0-66.0 NEUTROPHILS % eCW1 ([facility]) 29.8 32.0-36.5 MEAN CORPUSCULAR HGB CONC eCW1 ([facility]) 48 150-450 PLATELET COUNT, AUTOMATED eCW1 ([facility]) 9.6 0.0-3.0 EOS % eCW1 ([facility]) 0.3 0.0-1.0 BASO % eCW1 ([facility]) 18.5 24.0-44.0 LYMPH % eCW1 ([facility]) 6.4 0.0-5.0 MONO % eCW1 ([facility]) 0.3 0.0-0.5 EOS # eCW1 ([facility]) 2.0 1.5-8.5 NEUTROPHILS # eCW1 ([facility]) 0.6 1.5-5.0 LYMPH # eCW1 ([facility]) 0.2 0.0-0.8 MONO # eCW1 ([facility]) 0.0 0.0-0.2 BASO # eCW1 ([facility]) ID Date Data Source [id number] 10/01/2020 10:21:00 PM EST [facility] Name Value Range Interpretation Code Description Data Skyla rce(s) Supporting Document(s) SARS coronavirus 2 RNA [Presence] in Res piratory specimen by CHARLES with probe detection NEGATIVE [facility] This lab was ordered by [facility] a nd reported by [facility] [place]. ID Date Data Source [id number] 10/01/2020 01:17:00 PM EST MEDENT ([facility]) Name Value Range Interpretation Code Description Data Skyla rce(s) Supporting Document(s) White Blood Count 1.9 4.0-10.0 MED[facility] ([facility]) Platelets 43 150-450 MED[facility] ([facility]) Red Blood Count 3.09 4.00-5.40 [facility] ([facility]) Hemoglobin 9.7 [facility] ([facility]) Hematocrit 31.7 [facility] ([facility]) ID Date Data Source [id number] 10/01/2020 01:17:00 PM EST [facility] ([facility]) Name Value Range Interpretation Code Description Data Skyla rce(s) Supporting Document(s) Calcium [Mass/volume] in Serum or Plasma 8.9 [facility] ([facility]) Sodium 142 [facility] ([facility]) Potassium [Moles/volume] in Serum or Plasma 3.8 [facility] ([facility]) Chloride [Moles/volume] in Serum or Plasma 110 MEDENT (Cardiology [facility]) Carbon dioxide, total [Moles/volume] in Serum or Plasma 28 [facility] ([facility]) Glucose 95 70-100 [facility] ([facility]) Creatinine 0.85 0.55-1.30 [facility] ([facility]) Blood Urea Nitrogen 18 7-18 MED[facility] (Ca [facility]diology [facility]) Glomerular filtration rate/1.73 sq M.pre dicted [Volume Rate/Area] in Serum or Plasma by Creatinine-based formula (MDRD) Laboratory test result MEDENT ([facility]) ID Date Data Source [id number] 09/25/2020 12:54:00 PM EST [facility] Name Value Range Interpretation Code Description Data Skyla rce(s) Supporting Document(s) Calcium [Mass/volume] in Serum or Plasma 8.6 [facility] ([facility]) Sodium 141 MED[facility] ([facility]) Chloride [Moles/volume] in Serum or Plasma 107 [facility] ([facility]) Carbon dioxide, total [Moles/volume] in Serum or Plasma 31 [facility] ([facility]) Potassium [Moles/volume] in Serum or Plasma 4.1 [facility] ([facility]) Glucose 83 70-100 [facility] ([facility]) Glomerular filtration rate/1.73 sq M.pre dicted [Volume Rate/Area] in Serum or Plasma by Creatinine-based formula (MDRD) Laboratory test result [facility] ([facility]) Creatinine 0.69 0.55-1.30 [facility] ([facility]) Blood Urea Nitrogen 19 7-18 MED[facility] ([facility]) ID Date Data Source [id number] 09/25/2020 12:54:00 PM EST MED[facility] ([facility]) Name Value Range Interpretation Code Description Data Skyla rce(s) Supporting Document(s) Troponin Laboratory test result [facility] ([facility]) Natriuretic peptide.B prohormone N-Terminal [Mass/volu me] in Serum or Plasma 95 MEDENT ([facility] [employer]) ID Date Data Source [id number] 09/25/2020 12:54:00 PM EST [facility] ([facility]) Name Value Range Interpretation Code Description Data Skyla rce(s) Supporting Document(s) White Blood Count 1.7 4.0-10.0 [facility] ([facility]) Red Blood Count 3.03 4.00-5.40 [facility] ([facility]io [facility]) Platelets 36 150-450 [facility] ([facility]) Hemoglobin 9.2 MED[facility] ([facility]iology [facility]) Hematocrit 31.9 MED[facility] ([facility]) ID Date Data Source [id number] 09/19/2020 10:41:00 PM EST [facility] Name Value Range Interpretation Code Description Data Skyla rce(s) Supporting Document(s) SARS coronavirus 2 RNA [Presence] in Res piratory specimen by CHARLES with probe detection NEGATIVE [facility] This lab was ordered by [facility] a nd reported by [facility] [place]. ID Date Data Source LACTIC ACID LEVEL, LACTATE 09/10/2020 12:00:00 AM EST eCW1 ( [facility]) Name Value Range Interpretation Code Description Data Skyla rce(s) Supporting Document(s) LACTIC ACID LEVEL, LACTATE eCW 1 ([facility]) ID Date Data Source C REACTIVE PROTEIN QUANTITATIV (At [facility]) 09/10/2020 12:00 :00 AM EST eCW1 ([facility]) Name Value Range Interpretation Code Description Data Skyla rce(s) Supporting Document(s) 0.66 0.00-0.30 C REACTIVE PROTEIN QUANTI TATIV eCW1 ([facility]) ID Date Data Source Comprehensive Metabolic Profile (CMP) 09/10/2020 12:00:00 AM EST eCW1 ([facility]) Name Value Range Interpretation Code Description Data Skyla rce(s) Supporting Document(s) 82 70-100 GLUCOSE, FASTING eCW1 ([facility]) 14 7-18 BLOOD UREA NITROGEN eCW1 ([facility]) 0.78 0.55-1.30 CREATININE FOR GFR eCW1 ([facility]) 4.1 3.5-5.1 POTASSIUM SERUM eCW1 ([facility]) 139 136-145 SODIUM LEVEL eCW1 ([facility]) > 60.0 >45 GLOMERULAR FILTRATION RATE eCW 1 ([facility]) 108 98-107 CHLORIDE LEVEL eCW1 ([facility]) 9.0 8.8-10.2 CALCIUM LEVEL eCW1 ([facility]) 28 21-32 CARBON DIOXIDE LEVEL eCW1 ([facility]) 113 45-117 ALKALINE PHOSPHATASE eCW1 ([facility]) 18 12-78 ALT/SGPT eCW1 ([facility]) 31 7-37 AST/SGOT eCW1 ([facility]) 3.2 3.2-5.2 ALBUMIN eCW1 ([facility]) 5.9 6.4-8.2 TOTAL PROTEIN eCW1 ([facility]) 1.0 0.2-1.0 BILIRUBIN,TOTAL eCW1 ([facility]) 1.2 1.2-2.2 ALBUMIN/GLOBULIN RATIO eCW1 ([facility]) ID Date Data Source [id number] 03/21/2020 02:19:00 PM EDT MEDENT ([facility]) Name Value Range Interpretation Code Description Data Skyla rce(s) Supporting Document(s) Calcium [Mass/volume] in Serum or Plasma 9.0 MED[facility] ([facility]) Albumin [Mass/volume] in Serum or Plasma 3.0 [facility] ([facility]) Alanine aminotransferase [Enzymatic activity/volume] in Serum or Pl asma 21 MED[facility] ([facility]) Chloride [Moles/volume] in Serum or Plasma 113 [facility] ([facility]) Carbon dioxide, total [Moles/volume] in Serum or Plasma 25 [facility] ([facility]) Potassium [Moles/volume] in Serum or Plasma 3.8 [facility]) ID Date Data Source [id number] 03/21/2020 02:19:00 PM EDT MEDENT (Cardi ology [...] 61 150-450 MEDENT ([facility]) Hematocrit 39.9 MED[facility] ([facility]) ID Date Data Source [id number] 02/13/2020 09:38:00 AM EDT MEDENT ([facility], ) Name Value Range Interpretation Code Description Data Skyla rce(s) Supporting Document(s) Hepatitis A virus IgG Ab [Units/volume] in Serum Laboratory test result Abnormal (applies to non-numeric results) [facility]) Performed at: RN - [facility] [address] [id number] Digital X Ray Service Engineer: Selene Garrido MD, Phone: [phone] Hepatitis B virus surface Ab [Presence] in Serum by [facility] Laboratory test result Normal (applies to non-numeric results) [facility] ([facility]) Uvfjd-7-Nkujbroxubf [Mass/volume] in Serum or Plasma 4.4 ng/mL Normal (applies to non-numeric results) [facility]) THE AFP ASSAY IS PERFORMED ON THE [employer] BY CHEMILUMINESCENCE AND SHOULD NOT BE COMPARED [...] % 0.0-9.59 Normal (applies to non-numeric results) [facility]) ID Date Data Source [id number] 02/13/2020 09:38:00 AM EDT [facility]) Name Value Range Interpretation Code Description Data Skyla rce(s) Supporting Document(s) Creatinine For GFR 0.74 mg/dL 0.55-1.30 Normal (applies to non -numeric results) [facility] ([facility]) Glomerular Filtration Rate Laboratory test result Normal (applies to non- numeric results) [facility]) <content>Units are mL/min/1.73 m2</content>
<content></content>
<content>Chronic Kidney Disease Staging per NKF:</content>
<content></content>
<content>Stage I & II GFR >=60 Normal to Mildly Decreased</content>
<content>Stage III GFR 30- 59 Moderately Decreased</content>
<content>Stage IV GFR 15-29 Severely Decreased</content>
<content>Stage V GFR <15 Very Little GFR Left</content>
<content>ESRD GFR <15 on ENGINEERING TECHNOLOGIST</content>
<content></content> ID Date Data Source [id number] 02/13/2020 09:38:00 AM EDT [facility]) Name Value Range Interpretation Code Description Data Skyla rce(s) Supporting Document(s) Urea nitrogen [Mass/volume] in Serum or Plasma 17 mg/dL 7 -18 Normal (applies to non-numeric results) [facility]) ID Date Data Source [id number] 02/13/2020 09:38:00 AM EDT [facility]) Name Value Range Interpretation Code Description Data Skyla rce(s) Supporting Document(s) Inr 1.22 Normal (applies to non-numeric resul ts) [facility]) THERAPUTIC HUMAN INR VALUES INDICATIONS NORMAL RANGES PROPHYLAXIS/TREATMENT OF: VENOUS THROMBOSIS 2.0-3.0 PULMONARY EMBOLISM 2.0-3.0 PREVENTION OF SYSTEMIC EMBOLISM FROM: TISSUE HEART VALVES 2.0-3.0 ACUTE MYOCARDIAL INFARCTION 2.0-3.0 VALVULAR HEART DISEASE 2.0-3.0 ATRIAL FIBRILLATION 2.0-3.0 MECHANICAL VALVES(HIGH RISK) 2.5-3.5 RECURRENT MYOCARDIAL INFARCTION 2.5-3.5 Prothrombin Time 15.1 s 11.8-14.0 Above high normal M [facility]) Partial Thromboplastin Time 30.4 s 25.0-38.4 Norm al (applies to non-numeric results) [facility]) ID Date Data Source [id number] 02/13/2020 09:38:00 AM EDT [facility]) Name Value Range Interpretation Code Description Data Skyla rce(s) Supporting Document(s) Total Iron Binding Capacity 345 ug/dL 250-450 Norm al (applies to non-numeric results) [facility]) Iron (Fe) 127 ug/dL 50-170 Normal (applies to non-numeric resul ts) [facility]) Percent Saturation 36.8 % 13.2-45.0 Normal (applies to non-numer ic results) [facility] ([facility]) ID Date Data Source [id number] 02/13/2020 09:38:00 AM EDT [facility] ([facility]) Name Value Range Interpretation Code Description Data Skyla rce(s) Supporting Document(s) Ferritin [Mass/volume] in Serum or Plasma 19 ng/mL 8-252 Normal (applies to non- numeric results) [facility] ([facility]) ID Date Data Source [id number] 02/13/2020 09:38:00 AM EDT [facility] ([facility]) Name Value Range Interpretation Code Description Data Skyla rce(s) Supporting Document(s) Red Blood Count 4.17 10 4.00-5.40 Normal (applies to non-numeric results) [facility] ([facility]) White Blood Count 3.4 10 4.0-10.0 Below [facility] Hemoglobin 13.2 g/dL 12.0-15.5 Normal (applies to non-numeric resul ts) [facility] ([facility]) Mean Corpuscular Hemoglobin 31.7 pg 27.0-33.0 Norm al (applies to non-numeric results) [facility] ([facility]) Hematocrit 41.2 % 36.0-47.0 Normal (applies to non-numeric resul ts) [facility]) Mean Corpuscular Volume 98.8 fl 80.0-96.0 Above high normal [facility] ([facility]) Platelet Count, Automated 63 10 150-450 Below low normal [facility] ([facility]) Mean Corpuscular HGB Conc 32.0 g/dL 32.0-36.5 Normal (applies to non-numeric results) [facility] ([facility]) Red Cell Distribution Width 14.6 % 11.5-14.5 Above high normal [facility] ([facility]) Eos % 5.7 % 0.0-3.0 Above high normal [facility] ([facility]) [place] % 6.5 % 0.0-5.0 Above high normal [facility] ([facility] ) Lymph % 20.2 % 24.0-44.0 Below low normal [facility] ( [facility]) Neutrophils % 67.0 % 36.0-66.0 Above high normal MEDE NT ([facility]) Nucleated Red Blood Cell % 0.0 % 0-0 Normal (applies to n on-numeric results) [facility] ([facility]) Immature Granulocyte % 0.3 % 0-3.0 Normal (applies to non-n umeric results) [facility] ([facility]) Baso % 0.3 % 0.0-1.0 Normal (applies to non-numeric resul ts) [facility] ([facility]) Lymph # 0.7 10 1.5-5.0 Below low [facility] Eos # 0.2 10 0.0-0.5 Normal (applies to non-numeric resul ts) [facility] ([facility]) [place] # 0.2 10 0.0-0.8 Normal (applies to non-numeric resul ts) [facility] ([facility]) Neutrophils # 2.3 10 1.5-8.5 Normal (applies to non-numeric re sults) [facility] ([facility]) Baso # 0.0 10 0.0-0.2 Normal (applies to non-numeric resul ts) [facility] ([facility]) ID Date Data Source [id number] 10/10/2019 02:04:00 PM EST [facility] ([facility]) Name Value Range Interpretation Code Description Data Skyla rce(s) Supporting Document(s) Ivifx-2-Abwmnxanmik [Mass/volume] in Serum or Plasma 4.4 ng/mL Normal (applies to non-numeric results) [facility] ([facility]) THE AFP ASSAY IS PERFORMED ON THE [employer] BY CHEMILUMINESCENCE AND SHOULD NOT BE COMPARED [...] % 0.0-9.59 Normal (applies to non-numeric results) [facility] ([facility]) Blood group antibodies identified in Serum or Plasma Laboratory test result Normal (applies to non-numeric results) [facility]) ID Date Data Source [id number] 10/10/2019 02:04:00 PM EST [facility]) Name Value Range Interpretation Code Description Data Skyla rce(s) Supporting Document(s) Prothrombin Time 14.6 s 11.8-14.0 Above high [facility] Partial Thromboplastin Time 29.7 s 25.0-38.4 Norm al (applies to non-numeric results) [facility] ([facility]) Inr 1.17 Normal (applies to non-numeric resul ts) [facility]) THERAPUTIC HUMAN INR VALUES INDICATIONS NORMAL RANGES PROPHYLAXIS/TREATMENT OF: VENOUS THROMBOSIS 2.0-3.0 PULMONARY EMBOLISM 2.0-3.0 PREVENTION OF SYSTEMIC EMBOLISM FROM: TISSUE HEART VALVES 2.0-3.0 ACUTE MYOCARDIAL INFARCTION 2.0-3.0 VALVULAR HEART DISEASE 2.0-3.0 ATRIAL FIBRILLATION 2.0-3.0 MECHANICAL VALVES(HIGH RISK) 2.5-3.5 RECURRENT MYOCARDIAL INFARCTION 2.5-3.5 ID Date Data Source [id number] 10/10/2019 02:04:00 PM EST [facility]) Name Value Range Interpretation Code Description Data Skyla rce(s) Supporting Document(s) Blood Type Laboratory test result Normal (applies to non-n umeric results) [facility]) Blood group antibody screen [Presence] in Serum or Prasad sma Laboratory test result Normal (applies to non-numeric results) [facility]) ID Date Data Source [id number] 10/10/2019 02:04:00 PM EST [facility]) Name Value Range Interpretation Code Description Data Skyla rce(s) Supporting Document(s) Glomerular Filtration Rate Laboratory test result Normal (applies to non- numeric results) [facility]) <content>Units are mL/min/1.73 m2</content>
<content></content>
<content>Chronic Kidney Disease Staging per NKF:</content>
<content></content>
<content>Stage I & II GFR >=60 Normal to Mildly Decreased</content>
<content>Stage III GFR 30- 59 Moderately Decreased</content>
<content>Stage IV GFR 15-29 Severely Decreased</content>
<content>Stage V GFR <15 Very Little GFR Left</content>
<content>ESRD GFR <15 on ENGINEERING TECHNOLOGIST</content>
<content></content> Creatinine For GFR 0.83 mg/dL 0.55-1.30 Normal (applies to non -numeric results) [facility]) ID Date Data Source [id number] 10/10/2019 02:04:00 PM EST [facility] ([facility]) Name Value Range Interpretation Code Description Data Skyla rce(s) Supporting Document(s) Urea nitrogen [Mass/volume] in Serum or Plasma 17 mg/dL 7 -18 Normal (applies to non-numeric results) [facility] ([facility]) ID Date Data Source [id number] 10/10/2019 02:04:00 PM EST [facility]) Name Value Range Interpretation Code Description Data Skyla rce(s) Supporting Document(s) White Blood Count 4.0 10 4.0-10.0 Normal (applies to non-numeri c results) [facility] ([facility]) Red Blood Count 4.00 10 4.00-5.40 Normal (applies to non-numeric results) [facility] ([facility]) Mean Corpuscular Volume 90.3 fl 80.0-96.0 Normal ( applies to non-numeric results) [facility] ([facility]) Hemoglobin 10.1 g/dL 12.0-15.5 Below low normal [facility] ( [facility]) Hematocrit 36.1 % 36.0-47.0 Normal (applies to non-numeric resul ts) [facility] ([facility]) Red Cell Distribution Width 18.3 % 11.5-14.5 Above high normal [facility] ([facility]) Mean Corpuscular Hemoglobin 25.3 pg 27.0-33.0 Below low normal [facility] ([facility]) Mean Corpuscular HGB Conc 28.0 g/dL 32.0-36.5 Below low normal [facility] ([facility]) Platelet Count, Automated 85 10 150-450 Below low normal [facility] ([facility]) Lymph % 26.1 % 24.0-44.0 Normal (applies to non-numeric resul ts) [facility] ([facility]) Neutrophils % 63.6 % 36.0-66.0 Normal (applies to non-numeric re sults) [facility] ([facility]) [place] % 5.5 % 0.0-5.0 Above high normal [facility] ([facility]) Baso % 0.5 % 0.0-1.0 Normal (applies to non-numeric resul ts) [facility] ([facility]) Nucleated Red Blood Cell % 0.0 % 0-0 Normal (applies to n on-numeric results) [facility] ([facility]) Eos % 4.0 % 0.0-3.0 Above high normal [facility] ([facility]) Immature Granulocyte % 0.3 % 0-3.0 Normal (applies to non-n umeric results) [facility] ([facility]) Neutrophils # 2.5 10 1.5-8.5 Normal (applies to non-numeric re sults) [facility] ([facility]) [place] # 0.2 10 0.0-0.8 Normal (applies to non-numeric resul ts) [facility] ([facility]) Lymph # 1.0 10 1.5-5.0 Below low normal [facility] ( [facility]) Baso # 0.0 10 0.0-0.2 Normal (applies to non-numeric resul ts) [facility] ([facility]) Eos # 0.2 10 0.0-0.5 Normal (applies to non-numeric resul ts) [facility] ([facility]) Procedure Social History Code Duration Value Status Description Data Source(s ) Smoking 10/15/2020 12:00:00 AM EST Never Smoker completed Never S moker eCW1 ([facility]) Smoking 10/15/2020 12:00:00 AM EST Never Smoker completed Never S moker eCW1 ([facility]) Smoking 10/15/2020 12:00:00 AM EST Never Smoker completed Never S moker eCW1 ([facility]) Smoking 10/15/2020 12:00:00 AM EST Never Smoker completed Never S moker eCW1 ([facility]) Smoking 09/10/2020 12:00:00 AM EST Never Smoker completed Never S moker eCW1 ([facility]) Smoking 09/10/2020 12:00:00 AM EST Never Smoker completed Never S moker eCW1 ([facility]) Smoking 09/10/2020 12:00:00 AM EST Never Smoker completed Never S moker eCW1 ([facility]) Smoking 09/10/2020 12:00:00 AM EST Never Smoker completed Never S moker eCW1 ([facility]) Smoking 09/10/2020 12:00:00 AM EST Never Smoker completed Never S moker eCW1 ([facility]) Smoking 09/10/2020 12:00:00 AM EST Never Smoker completed Never S moker eCW1 ([facility]) Smoking 08/21/2020 12:00:00 AM EST Never Smoker completed Never S moker eCW1 ([facility]) Smoking 08/21/2020 12:00:00 AM EST Never Smoker completed Never S moker eCW1 ([facility]) Smoking 08/21/2020 12:00:00 AM EST Never Smoker completed Never S moker eCW1 ([facility]) Smoking 08/21/2020 12:00:00 AM EST Never Smoker completed Never S moker eCW1 ([facility]) Smoking 07/09/2020 12:00:00 AM EDT Never Smoker completed Never S moker eCW1 ([facility]) Smoking 07/09/2020 12:00:00 AM EDT Never Smoker completed Never S moker eCW1 ([facility]) Smoking 07/09/2020 12:00:00 AM EDT Never Smoker completed Never S moker eCW1 ([facility]) Smoking 07/09/2020 12:00:00 AM EDT Never Smoker completed Never S moker eCW1 ([facility]) Smoking 04/02/2020 12:00:00 AM EDT Patient has never smoked co mpleted Patient has never smoked [facility] ([facility]) Smoking 03/21/2020 12:00:00 AM EDT Never Smoker completed Never S moker eCW1 ([facility]) Smoking 03/21/2020 12:00:00 AM EDT Never Smoker completed Never S moker eCW1 ([facility]) Smoking 03/21/2020 12:00:00 AM EDT Never Smoker completed Never S moker eCW1 ([facility]) Smoking 02/15/2020 12:00:00 AM EDT Never Smoker completed Never S moker eCW1 ([facility]) Smoking 02/15/2020 12:00:00 AM EDT Never Smoker completed Never S moker eCW1 ([facility]) Vital Signs ID Date Data Source UNK Name Value Range Interpretation Code Description Data Source(s) Diastolic blood pressure 64 mm[Hg] 64 mm[Hg] eCW1 ([facility]) Systolic blood pressure 110 mm[Hg] 110 mm[Hg] e CW1 ([facility]) Body temperature 96.8 [degF] 96.8 [degF] eCW1 ( [facility]) Respiratory rate 20 /min 20 /min eCW1 ([facility]) Heart rate 67 /min 67 /min eCW1 ([facility]) Body mass index (BMI) [Ratio] 64.19 kg/m2 64.19 kg/m2 eCW1 ([facility]) Body height 64 [in_i] 64 [in_i] eCW1 ([facility]) Body weight 374 [lb_av] 374 [lb_av] eCW1 ([facility]) Diastolic blood pressure 70 mm[Hg] 70 mm[Hg] eCW1 ([facility]) Systolic blood pressure 98 mm[Hg] 98 mm[Hg] e CW1 ([facility]) Body mass index (BMI) [Ratio] 64.53 kg/m2 64.53 kg/m2 eCW1 ([facility]) Body height 64 [in_i] 64 [in_i] eCW1 ([facility]) Body weight 376 [lb_av] 376 [lb_av] eCW1 ([facility]) Diastolic blood pressure 68 mm[Hg] 68 mm[Hg] eCW1 ([facility]) Systolic blood pressure 110 mm[Hg] 110 mm[Hg] e CW1 ([facility]) Body temperature 96.6 [degF] 96.6 [degF] eCW1 ( [facility]) Respiratory rate 20 /min 20 /min eCW1 ([facility]) Heart rate 73 /min 73 /min eCW1 ([facility]) Body mass index (BMI) [Ratio] 64.53 kg/m2 64.53 kg/m2 eCW1 ([facility]) Body height 64 [in_i] 64 [in_i] eCW1 ([facility]) Body weight 376 [lb_av] 376 [lb_av] eCW1 ([facility]) Diastolic blood pressure 78 mm[Hg] 78 mm[Hg] eCW1 ([facility]) Systolic blood pressure 130 mm[Hg] 130 mm[Hg] e CW1 ([facility]) Body temperature 96.3 [degF] 96.3 [degF] eCW1 ( [facility]) Respiratory rate 20 /min 20 /min eCW1 ([facility]) Heart rate 99 /min 99 /min eCW1 ([facility]) Body mass index (BMI) [Ratio] 62.82 kg/m2 62.82 kg/m2 eCW1 ([facility]) Body height 64 [in_i] 64 [in_i] eCW1 ([facility]) Body weight 366 [lb_av] 366 [lb_av] eCW1 ([facility]) Diastolic blood pressure 76 mm[Hg] 76 mm[Hg] eCW1 ([facility]) Systolic blood pressure 130 mm[Hg] 130 mm[Hg] e CW1 ([facility]) Body temperature 96.9 [degF] 96.9 [degF] eCW1 ( [facility]) Respiratory rate 20 /min 20 /min eCW1 ([facility]) Heart rate 67 /min 67 /min eCW1 ([facility]) Body mass index (BMI) [Ratio] 61.10 kg/m2 61.10 kg/m2 eCW1 ([facility]) Body height 64 [in_i] 64 [in_i] eCW1 ([facility]) Body weight 356 [lb_av] 356 [lb_av] eCW1 ([facility]) Body weight 149.688 kg 149.688 kg [facility] ([facility], ) Body mass index (BMI) [Ratio] 56.6 kg/m2 56.6 k g/m2 [facility] ([facility], ) Body weight 330.00 [lb_av] 330.00 [lb_av] [facility] ([facility], ) Body height 64 [in_i] 64 [in_i] [facility] ([facility], ) 5'4" Oxygen saturation in Arterial blood by Pulse oximetry 89 % 89 % [facility] ([facility], ) 96 2L Heart rate 60 /min 60 /min [facility] ([facility], ) Diastolic blood pressure 66 mm[Hg] 66 mm[Hg] [facility] ([facility], ) Systolic blood pressure 108 mm[Hg] 108 mm[Hg] [facility] ([facility], ) Diastolic blood pressure 68 mm[Hg] 68 mm[Hg] [facility] ([facility]) sitting, large cuff Systolic blood pressure 126 mm[Hg] 126 mm[Hg] [facility]) sitting, large cuff Respiratory rate 16 /min 16 /min [facility] ( [facility]) Heart rate 72 /min 72 /min [facility] ([facility] Regular Body mass index (BMI) [Ratio] 56.6 kg/m2 56.6 k g/m2 [facility] ([facility]) Body height 64 [in_i] 64 [in_i] [facility] ([facility]) 5'4" Body weight 330.00 [lb_av] 330.00 [lb_av] [facility] T ([facility]) Diastolic blood pressure 76 mm[Hg] 76 mm[Hg] eCW1 ([facility]) Systolic blood pressure 128 mm[Hg] 128 mm[Hg] e CW1 ([facility]) Body temperature 97.1 [degF] 97.1 [degF] eCW1 ( [facility]) Respiratory rate 20 /min 20 /min eCW1 ([facility]) Heart rate 66 /min 66 /min eCW1 ([facility]) Body mass index (BMI) [Ratio] 60.76 kg/m2 60.76 kg/m2 eCW1 ([facility]) Body height 64 [in_i] 64 [in_i] eCW1 ([facility]) Body weight 354.0 [lb_av] 354.0 [lb_av] eCW1 ([facility]) Body weight 162.842 kg 162.842 kg [facility] ([facility], ) Body mass index (BMI) [Ratio] 61.6 kg/m2 61.6 k g/m2 [facility] ([facility], ) Body weight 359.00 [lb_av] 359.00 [lb_av] [facility] T ([facility], ) Body height 64 [in_i] 64 [in_i] [facility] ([facility], ) 5'4" Diastolic blood pressure 74 mm[Hg] 74 mm[Hg] [facility] ([facility], ) Systolic blood pressure 132 mm[Hg] 132 mm[Hg] M [facility] ([facility], ) Diastolic blood pressure 70 mm[Hg] 70 mm[Hg] eCW1 ([facility]) Systolic blood pressure 136 mm[Hg] 136 mm[Hg] e CW1 ([facility]) Body temperature 96.8 [degF] 96.8 [degF] eCW1 ( [facility]) Respiratory rate 20 /min 20 /min eCW1 ([facility]) Heart rate 75 /min 75 /min eCW1 ([facility]) Body mass index (BMI) [Ratio] 61.10 kg/m2 61.10 kg/m2 eCW1 ([facility]) Body height 64 [in_i] 64 [in_i] eCW1 ([facility]) Body weight 356 [lb_av] 356 [lb_av] eCW1 ([facility]) Diastolic blood pressure 72 mm[Hg] 72 mm[Hg] eCW1 ([facility]) Systolic blood pressure 132 mm[Hg] 132 mm[Hg] e CW1 ([facility]) Body temperature 96.5 [degF] 96.5 [degF] eCW1 ( [facility]) Respiratory rate 20 /min 20 /min eCW1 ([facility]) Heart rate 70 /min 70 /min eCW1 ([facility]) Body mass index (BMI) [Ratio] 59.21 kg/m2 59.21 kg/m2 eCW1 ([facility]) Body height 64 [in_us] 64 [in_us] eCW1 ([facility]) Body weight Measured 345 [lb_av] 345 [lb_av] eC W1 ([facility]) Body weight 155.585 kg 155.585 kg [facility] ([facility], ) Body mass index (BMI) [Ratio] 58.9 kg/m2 58.9 k g/m2 [facility] ([facility], ) Body weight 343.00 [lb_av] 343.00 [lb_av] [facility] T ([facility], ) Body height 64 [in_i] 64 [in_i] [facility] ([facility], ) 5'4" Diastolic blood pressure 78 mm[Hg] 78 mm[Hg] [facility] ([facility]) Systolic blood pressure 126 mm[Hg] 126 mm[Hg] M [facility] ([facility]) Body weight 148.327 kg 148.327 kg [facility] ([facility]) Body mass index (BMI) [Ratio] 56.1 kg/m2 56.1 k g/m2 [facility] ([facility]) Body weight 327.00 [lb_av] 327.00 [lb_av] [facility] T ([facility]) Body height 64 [in_i] 64 [in_i] [facility] ([facility]) 5'4" Body temperature 96.8 [degF] 96.8 [degF] [facility] ([facility]) Diastolic blood pressure 76 mm[Hg] 76 mm[Hg] [facility] ([facility]) Systolic blood pressure 113 mm[Hg] 113 mm[Hg] [facility]) Diastolic blood pressure 74 mm[Hg] 74 mm[Hg] eCW1 ([facility]) Systolic blood pressure 136 mm[Hg] 136 mm[Hg] e CW1 ([facility]) Body temperature 98.2 [degF] 98.2 [degF] eCW1 ( [facility]) Respiratory rate 22 /min 22 /min eCW1 ([facility]) Heart rate 71 /min 71 /min eCW1 ([facility]) Body mass index (BMI) [Ratio] 58.87 kg/m2 58.87 kg/m2 eCW1 ([facility]) Body height 64 [in_us] 64 [in_us] eCW1 ([facility]) Body weight Measured 343 [lb_av] 343 [lb_av] eC W1 ([facility]) Patient Treatment Plan of Care Planned Activity Planned Date Details Description Data Source (s) Cephalexin 500 MG Oral Capsule [Keflex] 09/10/2020 12:00:00 AM EST eCW1 ([facility]) Cephalexin 500 MG Oral Capsule [Keflex] 09/10/2020 12:00:00 AM EST eCW1 ([facility]) Cephalexin 500 MG Oral Capsule [Keflex] 09/10/2020 12:00:00 AM EST eCW1 ([facility]) Cephalexin 500 MG Oral Capsule [Keflex] 09/10/2020 12:00:00 AM EST eCW1 ([facility]) Cephalexin 500 MG Oral Capsule [Keflex] 09/10/2020 12:00:00 AM EST eCW1 ([facility]) apixaban 2.5 MG Oral Tablet [Eliquis] 08/12/2020 12:00:00 AM EST eCW1 ([facility]) apixaban 2.5 MG Oral Tablet [Eliquis] 08/12/2020 12:00:00 AM EST eCW1 ([facility]) apixaban 2.5 MG Oral Tablet [Eliquis] 08/12/2020 12:00:00 AM EST eCW1 ([facility]) apixaban 2.5 MG Oral Tablet [Eliquis] 08/12/2020 12:00:00 AM EST eCW1 ([facility]) apixaban 2.5 MG Oral Tablet [Eliquis] 08/12/2020 12:00:00 AM EST eCW1 ([facility]) apixaban 2.5 MG Oral Tablet [Eliquis] 08/12/2020 12:00:00 AM EST eCW1 ([facility]) Levofloxacin 750 MG Oral Tablet 07/09/2020 12:00:00 AM EDT eCW1 ([facility]) Levofloxacin 750 MG Oral Tablet 07/09/2020 12:00:00 AM EDT eCW1 ([facility]) gabapentin 800 MG Oral Tablet 02/19/2020 12:00:00 AM EDT eCW1 ([facility]) Bisoprolol Fumarate 5 MG Oral Tablet 02/19/2020 12:00:00 AM EDT eCW1 ([facility]) Fluticasone Propionate 50 MCG/ACT 12/07/2019 12:00:00 AM EDT eCW1 ([facility]) Fluticasone Propionate 50 MCG/ACT 12/07/2019 12:00:00 AM EDT eCW1 ([facility]) Spironolactone 25 MG Oral Tablet eCW1 ([facility]
--- NOTE | 2020-10-24 00:13 | HPEPDOC ---
General Date of Admission Oct 23, 2020 Date of Service: Oct 23, 2020 Chief Complaint The patient is a 65-year-old female admitted with a reason for visit of Breast Pain,Cellulitis. Source: Patient Exam Limitations: No limitations Timing/Duration: Getting worse Severity: Mild, Moderate Associated Symptoms: Nausea History of Present Illness Patient is a 65 yo female with PMH of cellulitis presented to [facility] due to left upper extremity, left breast, and left abdominal wall erythema and pain. She reported that she was recently in the hospital due to cellulitis which improved with antibiotics. She reported left upper extremity erythema and pain radiating to forearm region for about a week. Patient indicated pain is severe. Reported that she just noticed associated erythema in her left breast region today when [employer] visited her home. She reported nausea without vomiting. She reported bowel movement as usual. Reported abdominal wall pain from fullness. Denies diarrhea, constipation, chest pain, palpitation. Reported exertional dyspnea which is usual for her. Home Medications Scheduled Bisoprolol Fumarate (Bisoprolol Fumarate) 5 Mg Tablet, 5 MG PO BID, (Reported) Calcium Carbonate/Vitamin D3 (Calcium 500-Vit D3 200 Tablet) 1 Each Tablet, 2 TAB PO QHS, (Reported) Cyanocobalamin (Vitamin B-12) (Vitamin B-12) 1,000 Mcg Tablet, 1,000 MCG PO DAILY, (Reported) Cyclobenzaprine HCl (Cyclobenzaprine HCl) 10 Mg Tablet, 10 MG PO TID, (Reported) Gabapentin (Gabapentin) 800 Mg Tablet, 800 MG PO BID, (Reported) Gabapentin (Gabapentin) 400 Mg Capsule, 400 MG PO DAILY, (Reported) TAKES AT 1500 Levothyroxine Sodium (Levothyroxine Sodium) 88 Mcg Tablet, 88 MCG PO DAILY, (Reported) Pantoprazole Sodium (Pantoprazole Sodium) 40 Mg Tablet.dr, 40 MG PO BID, (Reported) Potassium Chloride (Potassium Chloride) 20 Meq Tab.er.prt, 20 MEQ PO QHS, (Reported) Torsemide (Torsemide) 20 Mg Tablet, 20 MG PO BID, (Reported) 0900, 1500 Trazodone HCl (Trazodone HCl) 150 Mg Tablet, 150 MG PO QHS, (Reported) Venlafaxine HCl (Venlafaxine HCl ER) 75 Mg Cap.er.24h, 75 MG PO DAILY, (Reported) Venlafaxine HCl (Venlafaxine HCl ER) 75 Mg Cap.er.24h, 150 MG PO QHS, (Reported) Vitamin B Complex (Vitamin B Complex) 1 Each Tablet, 1 TAB PO DAILY, (Reported) Scheduled PRN Ipratropium/Albuterol Sulfate (Iprat-Albut 0.5-3(2.5) mg/3 ml) 3 Ml Ampul.neb, 3 ML INH Q6H PRN for COUGH/SOB/WHEEZING, (Reported) Allergies Coded Allergies: naloxone (Verified Allergy, Unknown, sz, 10/01/20) codeine (Verified Adverse Reaction, Intermediate, CHESP PAIN, 10/01/20) ibuprofen (Verified Adverse Reaction, Intermediate, JOINT/ MUSCLE PAIN, 10/01/20) pregabalin (Verified Adverse Reaction, Intermediate, chest pain, 10/01/20) amoxicillin (Verified Adverse Reaction, Mild, vomiting and diarrhea, 10/01/20) clavulanic acid (Verified Adverse Reaction, Mild, vomiting and diarrhea, 10/01/20) erythromycin base (Verified Adverse Reaction, Mild, vomting diarrhea, 10/01/20) hydromorphone (Verified Adverse Reaction, Mild, ITCHING, 10/01/20) CAN TAKE IF BENADRYL GIVEN PRIOR Past Medical History Medical History left lower extremity DVT right lower extremity DVT right upper extremity DVT LISA cirrhosis alpha-1 anti-trypsin deficiency Portal hypertension. GAVE Bilateral sciatica Right CVA History of seizures hemorrhoids COPD CHF, diastolic Pulmonary hypertension History of nephrolithiasis Osteoporosis Hypothyroidism Pulmonary nodules Chronic gastritis History of GI bleed Atrial fibrillation-not on anticoagulation due to GI bleed Pancytopenia, following heme/onco Neuropathy, idiopathic Depression Insomnia Morbid obesity History of B12 deficiency History of MRSA Surgical History Cholecystectomy Hemorrhoidectomy Appendectomy Tonsillectomy Upper endoscopy Midline insertions Adenoidectomy section Hysterectomy with bilateral salpingo/oophorectomy Left knee arthroscopy Incarcerated abdominal hernia Social History * Smoker: Denies Alcohol: Denies Drugs: denies A-FIB/CHADSVASC A-FIB History Current/History of A-Fib/PAF?: Yes Current PO Anticoag Therapy: Yes Age/Risk Factor Scoring CHADSVASC: CHADSVASC Response (Comments) Value Age Risk Factor Age 65-74 years old 1 Gender Risk Factor Female 1 Hx of CHF Yes 1 Hx of HTN No 0 Hx of Stroke/TIA/or VTE Yes 2 Hx of Diabetes No 0 Total 5 Review of Systems Constitutional: Denies: Chills, Fever Eyes: Denies: Vision change ENT: Denies: Sore Throat Skin: Reports: Rash, Bruising (right upper extremity from prior needle stick per patient) Cardiovascular: Denies: Chest Pain, Palpitations Gastrointestinal: Reports: Nausea, Other Symptoms (abdominal wall pain from fullness); Denies: Vomiting, Abdominal Pain, Diarrhea, Constipation Genitourinary: Denies: Dysuria Hematologic: Reports: Bruising Musculoskeletal: Reports: Back Pain (chronic back pain) Neurological: Reports: Numbness (chronic, in left foot), Other Symptoms (chronic tingling and decreased sensation in left foot. Chronic intermittent numbness, tingling, and decreased sensation in right foot) Psych: Reports: Anxiety (chronic) Physical Examination General Exam: Positive: Alert, Cooperative, Other (Morbidly obese); Negative: No Acute Distress Eye Exam: Positive: EOMI; Negative: Sclera icteric ENT Exam: Positive: Atraumatic, Mucous membr. moist/pink, Tongue Midline Neck Exam: Positive: Supple Chest Exam: Positive: Clear to auscultation, Normal air movement; Negative: Rales, Rhonchi, Wheezing Heart Exam: Positive: Rate Normal, Regular Rhythm Abdomen Exam: Positive: Normal bowel sounds; Negative: Soft Extremity Exam: Positive: Other (Stasis dermatitis changes) Skin Exam: Positive: Rash (Left breast, left abdomen, left arm); Negative: Breakdown Neuro Exam: Positive: Normal Speech, Normal Tone, Cranial Nerves 3-12 NL Psych Exam: Positive: Mental status NL, Mood NL Vital Signs Vital Signs Date Time Temp Pulse Resp B/P (MAP) Pulse Ox O2 Delivery O2 Flow Rate FiO2 10/23/20 20:12 10/23/20 18:06 98.6 69 18 94 Room Air Laboratory Data Labs 24H Laboratory Tests 2 10/23/20 20:42: Immature Granulocyte % (Auto) 0.4, Neutrophils (%) (Auto) 58.0, Lymphocytes (%) (Auto) 22.5L, Monocytes (%) (Auto) 7.4H, Eosinophils (%) (Auto) 10.9H, Basophils (%) (Auto) 0.8, Neutrophils # (Auto) 1.5, Lymphocytes # (Auto) 0.6L, Monocytes # (Auto) 0.2, Eosinophils # (Auto) 0.3, Basophils # (Auto) 0.0, Nucleated Red Blood Cells % (auto) 0.0, Immature Platelet Fraction 3.0, Erythrocyte Sedi mentation Rate 8, Anion Gap 6L, Glomerular Filtration Rate > 60.0, Calcium Level 9.0, C-Reactive Protein, Quantitative 0.30 10/23/20 21:02: Coronavirus (COVID-19)(PCR) NEGATIVE, Influenza Type A (RT-PCR) NEGATIVE, Influenza Type B (RT-PCR) NEGATIVE, Respiratory Syncytial Virus (PCR) NEGATIVE CBC/BMP Laboratory Tests 10/23/20 20:42 Microbiology Microbiology 10/23/20 Blood Culture, Received Pending 10/23/20 Blood Culture, Received Pending Assessment/Plan 1. Left upper extremity, left breast, and abdominal wall erythema and pain likely 2/2 cellulitis -No lactic acidosis, BP stable. 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 Pancytopenia, chronic -chronic pancytopenia, patient follows heme/onco outpatient -patient reported up-coming bone-marrow biopsy -follow up with daily CBC 3. Diastolic CHF -Appears to be hemodynamically compensated -Patient voiced no dyspnea. Reported only exertional dyspnea which is unchanged from her usual state -Cont home med Torsemide and Bisoprolol 4. Acquired hypothyroidism -Continue home med levothyroxine 5. Atrial fibrillation -Patient reported her a. fib is paroxysmal -Currently not on anticoagulation due to history of GI bleed. Reported chronic GI bleed due to hemorrhoids, reported unchanged from usual. Patient also have GAVE. Stool for occult blood. will leave it for patient and her primary care provider to discuss the risks and benefits of her being on anticoagulation. -Continue home med Bisoprolol -Heart rate within normal range 6. Vitamin B12 deficiency -Continue home med Vitamin B12 DVT prophylaxis: lovenox SC Plan / VTE VTE Prophylaxis Ordered?: Yes GME ATTESTATION My faculty preceptor for this patient encounter was physically present during the encounter and was fully available. All aspects of the patient interview, examination, medical decision making process, and medical care plan development were reviewed and approved by the faculty preceptor. The faculty preceptor is aware and concurs with the plan as stated in the body of this note and will attest to such by his/her cosignature. ATTENDING NOTE I, Benito Key DO, performed a history and physical examination of the patient and discussed his management with the resident, Viky Holley DO. I reviewed the resident's note and agree with the documented findings and plan of care. VIKY HOLLEY DO Oct 24, 2020 00:13 BENITO KEY DO Oct 24, 2020 09:50
[2020-10-24] MEDS: PANTOPRAZOLE 40MG TAB (PROTONIX) PO SCH ×2 (00:53→08:54)
[2020-10-24] MEDS: bisoproloL fumarate 5 MG TAB PO SCH ×2 (00:53→09:00)
[2020-10-24] MEDS: CYCLOBENZAPRINE 10MG TABLET PO SCH ×2 (00:54→08:53)
[2020-10-24 01:18] VITALS: BP 167/78
[2020-10-24 06:00] VITALS: BP 121/52
[2020-10-24] MEDS ORDERED: LEVOTHYROXINE 88MCG TABLET (0.088 MG) PO SCH (06:00)
[2020-10-24 06:18] LABS: BASO % 0.9 % (0.0-1.0); EOS # 0.2 10^3/uL (0.0-0.5); EOS % 10.7 % (0.0-3.0); HEMATOCRIT 32.8 % (36.0-47.0); HEMOGLOBIN 9.9 g/dl (12.0-15.5); LYMPH # 0.5 10^3/uL (1.5-5.0); LYMPH % 22.7 % (24.0-44.0); MEAN CORPUSCULAR HEMOGLOBIN 32.5 pg (27.0-33.0); MEAN CORPUSCULAR HGB CONC 30.2 g/dl (32.0-36.5); MEAN CORPUSCULAR VOLUME 107.5 fl (80.0-96.0); MONO # 0.3 10^3/uL (0.0-0.8); MONO % 11.6 % (0.0-5.0); NEUTROPHILS # 1.2 10^3/uL (1.5-8.5); NEUTROPHILS % 54.1 % (36.0-66.0); RED BLOOD COUNT 3.05 10^6/uL (4.00-5.40); WHITE BLOOD COUNT 2.3 10^3/uL (4.0-10.0)
[2020-10-24 06:19] LABS: PLATELET COUNT, AUTOMATED 38 10^3/uL (150-450)
[2020-10-24 06:45] LABS: BLOOD UREA NITROGEN 18 MG/DL (7-18); CALCIUM LEVEL 8.4 MG/DL (8.8-10.2); CARBON DIOXIDE LEVEL 26 MEQ/L (21-32); CHLORIDE LEVEL 113 MEQ/L (98-107); CREATININE FOR GFR 0.69 MG/DL (0.55-1.30); GLOMERULAR FILTRATION RATE > 60.0 (>45); GLUCOSE, FASTING 111 MG/DL (70-100); POTASSIUM SERUM 3.5 MEQ/L (3.5-5.1); SODIUM LEVEL 144 MEQ/L (136-145)
[2020-10-24 09:00] VITALS: BP 111/50
[2020-10-24] MEDS ORDERED: CYANOCOBALAMIN 500 MCG TAB PO SCH (09:00)
[2020-10-24] MEDS ORDERED: TORSEMIDE 20 MG TAB PO SCH (09:00)
[2020-10-24] MEDS ORDERED: ENOXAPARIN 40MG/0.4ML SYRINGE (J1650 PER 10MG) SC SCH (09:00)
--- NOTE | 2020-10-24 11:36 | IPNPDOC ---
Text Note Date of Service The patient was seen on 10/24/20. NOTE Subjective: Patient was seen and examined this morning at bedside. Patient appears comfortable. Tells me that she recently had a breast biopsy and this is when she noticed some redness appearing around the site of biopsy. Regarding her arm redness she tells me this is intermittent and comes and goes suddenly. She feels otherwise well with no complaints. She is afebrile denies any chills denies any chest pain or shortness of breath. Objective: Constitutional: Awake and alert, in no apparent distress, very obese female ENT: Sclera are clear. Respiratory: Lungs CTA bilaterally. No respiratory distress. No use of accessory muscles. Cardiovascular: Regular heart rate Gastrointestinal: Abdomen is soft, obese, non distended, non tender, BS present. No erythema apparent on the skin Musculoskeletal: No peripheral edema Neurologic: No focal neurological deficit. Mental Status: A&O x3, normal affect Skin: There is some mild erythema around the left breast in a circular pattern expanding outwards from the site of her breast biopsy it is very mild and nontender none purulent and based on the pen markings for border it appears to have improved. The erythema is barely visible. There is no erythema or tenderness involving her abdomen or left arm which was reported at time of admission. Assessment/plan: 65-year-old female admitted for observation chief suspected cellulitis # Left breast cellulitis: Likely triggered by recent breast biopsy as the suspected cellulitis is very mild but in a circular pattern around the site of the biopsy there is some mild erythema that already appear to have reduced based on skin pen border marking. Given her history of MRSA she was started on IV vancomycin but given how mild this is uncomfortable switching her to doxycycline to take orally and follow up with her PCP. # Intermittent left arm erythema: Currently the arm is not swollen tender or red. Patient says that she has periods when her left arm gets very red and she was recently admitted for this and it was not thought to be cellulitis by infectious diseases. She was referred to see rheumatology. Her arm looks normal currently on my exam. There is no erythema on her abdomen. # CHFpEF: Not in exacerbation. Continue home medications. # Hypothyroidism: resume Synthroid. # Paroxysmal A. fib: Mild dementia coagulation due to history of GI bleeding. I will leave the decision for anticoagulation up to her primary care physician. She is rate controlled with bisoprolol. # Morbid obesity: BMI 63.9 this complicated care # DVT prophylaxis: Candelario Garrison Hospitalist Moses CLEMENTS I+O Moses CLEMENTS I+O Laboratory Tests 10/23/20 20:42 10/24/20 05:54 Vital Signs Date Time Temp Pulse Resp B/P (MAP) Pulse Ox O2 Delivery O2 Flow Rate FiO2 10/24/20 09:00 60 111/50 10/24/20 06:00 97.7 18 96 Room Air I&O- Last 24 Hours up to 6 AM 10/24/20 06:00 Intake Total 930 ml Output Total 150 ml Balance 780 ml ARABELLA GARRISON MD Oct 24, 2020 11:36
[2020-10-24] MEDS ORDERED: DOXY-350 PO (11:41)
[2020-10-24] MEDS ORDERED: BACT800T5 PO (14:11)
[2020-10-24 14:43] VITALS: BP 105/69
== END 2020-10-24 15:02 | disposition home or self-care (01) ==
LOC: M ED 18:06 → INTOOBSV 23:31 → M ED INP 23:31 → M MS5PR 10-24 00:26
PROVIDERS: ADMIT Internal Medicine; ATTEND Family Medicine
DX: L03.114 Cellulitis of left upper limb (principal); N64.4 Mastodynia; L03.311 Cellulitis of abdominal wall; D69.6 Thrombocytopenia, unspecified; I48.0 Paroxysmal atrial fibrillation; J44.9 Chronic obstructive pulmonary disease, unspecified; I50.30 Unspecified diastolic (congestive) heart failure; I27.0 Primary pulmonary hypertension; E03.9 Hypothyroidism, unspecified; E66.01 Morbid (severe) obesity due to excess calories; G47.00 Insomnia, unspecified; F32.9 Major depressive disorder, single episode, unspecified; D61.818 Other pancytopenia; D51.9 Vitamin B12 deficiency anemia, unspecified; Z86.718 Personal history of other venous thrombosis and embolism; Z86.73 Personal history of transient ischemic attack (TIA), and cerebral infarction without residual deficits; Z88.8 Allergy status to other drugs, medicaments and biological substances; Z88.0 Allergy status to penicillin; Z88.1 Allergy status to other antibiotic agents; Z88.5 Allergy status to narcotic agent
CPT/HCPCS: 36415; 80048; 80202; 83605; 84145; 85025; 85049; 85055; 85652; 86140; 87040; 87631; 93971; 96365; 96366; 99284; J3370

== ENCOUNTER → 2020-10-27 | Outpatient (CLI) | payer OTHER ==
[~2020-10-27] MED LIST changes: +DOCU100C16 PO; +LIDOCAINE 1% MDV 20ML VIAL As Ordered ONE; +OYST500T91 PO; +SIME180C PO; +TRAM50TA2 PO
[2020-10-27 09:01] LABS: HEMATOCRIT 39.8 % (36.0-47.0); HEMOGLOBIN 12.1 g/dl (12.0-15.5); MEAN CORPUSCULAR HEMOGLOBIN 32.3 pg (27.0-33.0); MEAN CORPUSCULAR HGB CONC 30.4 g/dl (32.0-36.5); MEAN CORPUSCULAR VOLUME 106.1 fl (80.0-96.0); RED BLOOD COUNT 3.75 10^6/uL (4.00-5.40); WHITE BLOOD COUNT 3.4 10^3/uL (4.0-10.0)
[2020-10-27 09:31] LABS: PLATELET COUNT, AUTOMATED 60 10^3/uL (150-450)
[2020-10-27 10:25] VITALS: BP 120/57
--- NOTE | 2020-10-27 17:51 | REP ---
INDICATION: ANEMIA. COMPARISON: None. TECHNIQUE: The procedure was performed under the direct supervision of Dr. Mo. The risks and benefits of the procedure were explained to the patient and informed consent was obtained. The right iliac bone was localized using CT guidance. The skin was prepped and draped in a sterile fashion. 1% lidocaine was used as a local anesthetic. Using CT guidance an 11 gauge bone biopsy system was inserted. 8 cc of marrow fluid was withdrawn. One core sample was then obtained. The patient tolerated the procedure well and there were no immediate complications. After the appropriate amount to monitor convalescence the patient was discharged from the department. FINDINGS: None IMPRESSION: CT-guided right iliac bone marrow biopsy. <Electronically signed by Gonzalez Mahajan > 10/27/20 [id number] <Electronically signed by Selvin Mo > 10/27/20 [id number]
== END ==
LOC: M IRPRO 08:16
PROVIDERS: ATTEND Internal Medicine Medical Oncology
DX: D61.818 Other pancytopenia (principal)

== ENCOUNTER 2020-11-19 00:08 | Inpatient (IN) | payer OTHER ==
[~2020-11-19] VITALS: Ht 162.6 cm; Wt 178.6 kg
[~2020-11-19 00:08] MED LIST changes: -DOCU100C16 PO; -LIDOCAINE 1% MDV 20ML VIAL As Ordered ONE; -SIME180C PO; -TRAM50TA2 PO
[2020-11-19] MEDS ORDERED: SUCR1TA PO (00:27)
[2020-11-19] MEDS ORDERED: SPIR-10 PO (00:27)
[2020-11-19] MEDS ORDERED: SIME180C PO (00:28)
[2020-11-19 01:25] LABS: HEMATOCRIT 38.4 % (36.0-47.0); HEMOGLOBIN 11.7 g/dl (12.0-15.5); MEAN CORPUSCULAR HGB CONC 30.5 g/dl (32.0-36.5); MEAN CORPUSCULAR VOLUME 104.9 fl (80.0-96.0); RED BLOOD COUNT 3.66 10^6/uL (4.00-5.40); WHITE BLOOD COUNT 4.2 10^3/uL (4.0-10.0)
[2020-11-19 01:33] LABS: BLOOD UREA NITROGEN 22 MG/DL (7-18); CALCIUM LEVEL 8.9 MG/DL (8.8-10.2); CARBON DIOXIDE LEVEL 26 MEQ/L (21-32); CHLORIDE LEVEL 112 MEQ/L (98-107); CREATININE FOR GFR 0.88 MG/DL (0.55-1.30); GLOMERULAR FILTRATION RATE > 60.0 (>45); GLUCOSE, FASTING 87 MG/DL (70-100); SODIUM LEVEL 143 MEQ/L (136-145)
[2020-11-19 01:50] LABS: PLATELET COUNT, AUTOMATED 63 10^3/uL (150-450)
--- NOTE | 2020-11-19 02:54 | REPVR ---
PROCEDURE INFORMATION: Exam: XR Chest Exam date and time: 11/19/2020 2:08 AM Age: 65 years old Clinical indication: Pre-operative exam; Respiratory screening exam TECHNIQUE: Imaging protocol: XR of the chest Views: 1 view. COMPARISON: CT Chest without contrast 07/30/2020 10:11 AM FINDINGS: COMPARISON MORE: CR PORTABLE CHEST X-RAY 07/30/2020 5:15:31 AM Lungs: Unremarkable. No consolidation. No pulmonary edema. Pleural spaces: Unremarkable. No pleural effusion. No pneumothorax. Heart/Mediastinum: The heart is enlarged and similar in size compared to the prior chest x-ray on 07/30/2020. Diaphragm: There is elevation of the right hemidiaphragm that is similar in appearance compared to the prior chest x-ray on 07/30/2020. Bones/joints: There are endplate spurs in the thoracic spine. Organs: There are surgical clips in the right upper quadrant of the abdomen related to a cholecystectomy. IMPRESSION: 1. No acute findings. 2. Cardiomegaly, which is similar in appearance compared to the prior chest x-ray on 07/30/2020. Electronically signed by: Delmar Calero On 11/19/2020 02:54:48 AM
--- NOTE | 2020-11-19 03:11 | REPVR ---
PROCEDURE INFORMATION: Exam: XR Left Hip Exam date and time: 11/19/2020 2:08 AM Age: 65 years old Clinical indication: Hip pain; Left hip; Additional info: Trauma TECHNIQUE: Imaging protocol: XR Left hip. Views: 2 or 3 views hip with pelvis when performed. COMPARISON: CT ABD PELVIS WITH CONTRAST 10/02/2020 6:11 PM FINDINGS: Tubes, catheters and devices: A hernia repair mesh is noted. Bones/joints: There is no fracture or dislocation of the bony pelvis or left hip. There is a chronic compression fracture of L5 that can also be seen in the CT abdomen and pelvis on 10/02/2020. 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 The lumbar spine was not fully imaged. Soft tissues: Unremarkable. Intraperitoneal space: There are surgical clips in the pelvis. Vasculature: Incidental note is made of small round calcifications in the pelvis, which are compatible with phleboliths. IMPRESSION: 1. No fracture or dislocation of the bony pelvis or left hip. 2. Chronic compression fracture of L5 that can also be seen in the CT abdomen and pelvis on 10/02/2020. Electronically signed by: Delmar Calero On 11/19/2020 03:11:16 AM
--- NOTE | 2020-11-19 03:12 | REPVR ---
PROCEDURE INFORMATION: Exam: XR Left Knee Exam date and time: 11/19/2020 2:08 AM Age: 65 years old Clinical indication: Pain; Knee; Left; Additional info: Trauma TECHNIQUE: Imaging protocol: XR Left knee. Views: 4 or more views. COMPARISON: CR Tibia, Fibula lower leg LEFT 11/19/2020 1:19:35 AM FINDINGS: Bones/joints: There is a linear radiolucency in the head of the left fibula that is best seen in the lateral view of the left tibia and fibula x-rays on 11/19/2020. No other fractures are seen. There is osteoarthritis of the left knee, with marginal spurs arising from the medial and lateral compartments. Soft tissues: Unremarkable. IMPRESSION: 1. Findings above suspicious for an acute nondisplaced fracture of the head of the left fibula. 2. Osteoarthritis of the left knee. Electronically signed by: Delmar Calero On 11/19/2020 03:13:19 AM
--- NOTE | 2020-11-19 03:13 | REPVR ---
PROCEDURE INFORMATION: Exam: XR Left Tibia and Fibula Exam date and time: 11/19/2020 2:08 AM Age: 65 years old Clinical indication: Pain; Knee; Left; Additional info: Trauma TECHNIQUE: Imaging protocol: XR Left tibia and fibula. Views: 2 views. COMPARISON: CR Knee, complete LEFT 11/19/2020 12:51 AM FINDINGS: Bones/joints: In the lateral view, there is a linear radiolucency in the head of the left fibula, which is suspicious for an acute nondisplaced fracture. There is also an acute minimally displaced oblique fracture involving the left distal fibular metaphysis. An acute minimally displaced fracture involving the left posterior malleolus is also noted, with a cortical step-off in the articular surface of the tibial plafond. There is a posterior calcaneal spur at the insertion of the Achilles tendon, which is compatible with a left Achilles enthesopathy. Soft tissues: There is soft tissue swelling in the left knee, left calf, and left ankle. Other findings: There is a plantar calcaneal spur at the origin of the left plantar fascia. IMPRESSION: 1. Findings above suspicious for an acute nondisplaced fracture of the head of the left fibula. 2. Acute minimally distal fracture involving the left distal fibular metaphysis. 3. Acute minimally displaced fracture involving the left posterior malleolus. Electronically signed by: Delmar Calero On 11/19/2020 03:13:53 AM
--- NOTE | 2020-11-19 03:13 | REPVR ---
PROCEDURE INFORMATION: Exam: XR Left Ankle Exam date and time: 11/19/2020 2:08 AM Age: 65 years old Clinical indication: Pain; Ankle; Left; Additional info: Trauma TECHNIQUE: Imaging protocol: XR Left ankle. Views: 3 or more views. COMPARISON: CR Tibia, Fibula lower leg LEFT 11/19/2020 1:19:35 AM FINDINGS: Bones/joints: There is an acute minimally displaced oblique fracture involving the left distal fibular metaphysis. There is an acute minimally displaced fracture involving the left posterior malleolus with a cortical step-off in the posterior portion of the articular surface of the tibial plafond. The tibiotalar alignment is maintained. There is a posterior calcaneal spur at the insertion of the Achilles tendon, which is compatible with a left Achilles enthesopathy. Soft tissues: There is soft tissue swelling around the left ankle. Other findings: There is a plantar calcaneal spur at the origin of the left plantar fascia. IMPRESSION: 1. Acute minimally displaced oblique fracture involving the left distal fibular metaphysis. 2. Acute minimally displaced fracture involving the left posterior malleolus. Electronically signed by: Delmar Calero On 11/19/2020 03:13:41 AM
--- NOTE | 2020-11-19 03:20 | ECGEPIP ---
[facility] - ED Test Date: 2020-11-19 Pat Name: ZAMZAM SCHMITZ Department: Room: - Gender: Female [employer]: RIVERA : 1955 Requested By: Edmar Hanna Order Number: [id number] Reading MD: Edmar Barton Measurements Intervals Clyo Rate: 60 P: 93 DC: 184 QRS: -1 QRSD: 104 T: 12 QT: 464 QTc: 464 Interpretive Statements Sinus rhythm with premature supraventricular complexes MODERATE INTRAVENTRICULAR CONDUCTION DELAY NONSPECIFIC T WAVE ABNORMALITY(S) SIMILAR TO 09/24/20 Electronically Signed on 11-19-2020 3:19:28 EST by Edmar Barton
[2020-11-19] MEDS ORDERED: ONDANSETRON 4MG/2ML VIAL IV ONE (03:35)
[2020-11-19] MEDS: MORPHINE 4 MG/ML 1ML VIAL/SYRINGE (J2270) IV PRN ×2 (03:46→06:22)
[2020-11-19 04:33] LABS: RSV AMPLIFICATION NEGATIVE (NEGATIVE)
[2020-11-19] MEDS ORDERED: DOCU100C16 PO (05:07)
[2020-11-19 05:30] VITALS: BP 129/69
--- NOTE | 2020-11-19 06:05 | HPEPDOC ---
[facility] Medical History & Physical Date of Admission Nov 19, 2020 Date of Service: Nov 19, 2020 Attending Physician: ARABELLA GARRISON MD History and Physical CHIEF COMPLAINT: left ankle pain HISTORY OF PRESENT ILLNESS: 65 year old female with PMHx detailed below presented to the ED after acute trauma to the left ankle. She states she was walking from the door of [employer] to a cab when she tripped over a sign. She states that her left foot seemed to get stuck as she fell down. Patient reports immediate pain to the left ankle which was sharp in nature and rated a 10/10. She states she called EMS and was brought to the ED. She does note that she typically walks with a walker, but was using an electronic scooter cart in the store and did not have her walker to help her get to the cab from the store entrance. Patient reports prior injury to the left ankle with possible prior fracture, but denies any prior surgeries to the left ankle. Patient currently reports improvement of left ankle pain after it was splinted in the ED. She notes some aching in bilateral hips since the fall as well. PAST MEDICAL HISTORY: Alpha-1 anti-trypsin deficiency with COPD and liver cirrhosis Portal hypertension GAVE with hx of GI bleeding Bilateral sciatica Right CVA History of seizures Hemorrhoids COPD CHF, diastolic Pulmonary hypertension History of nephrolithiasis Osteoporosis Hypothyroidism Pulmonary nodules Atrial fibrillation-not on anticoagulation due to GI bleed Pancytopenia, following heme/onco Neuropathy, idiopathic Depression/Insomnia Morbid obesity History of B12 deficiency History of MRSA History of DVT in multiple extremities PAST SURGICAL HISTORY: Cholecystectomy Hemorrhoidectomy Appendectomy Tonsillectomy Upper endoscopy Midline insertions Adenoidectomy section Hysterectomy with bilateral salpingo/oophorectomy Left knee arthroscopy Incarcerated abdominal hernia SOCIAL HISTORY: Never smoker. Very rare alcohol intake of 1 drink. No hx IV or illicit substance use. Lives with her daughter. Uses a walker to ambulate at baseline. FAMILY HISTORY: Noncontributory. ALLERGIES: Please see below. REVIEW OF SYSTEMS: CONSTITUTIONAL: Denies fevers, chills, night sweats, fatigue, unexpected change in weight. HEENT: Denies change in vision, change in hearing. CARDIOVASCULAR: Denies chest pain, palpitations, shortness of breath, lightheadedness. RESPIRATORY: Denies dyspnea, cough, wheezing. GASTROINTESTINAL: Denies nausea, vomiting, abdominal pain, diarrhea, constipation. GENITOURINARY: Denies dysuria, urinary frequency, urinary urgency. SKIN: Endorses a chronic intermittent rash for which she is scheduled to see rheumatology MUSCULOSKELETAL: Positive per HPI. NEUROLOGICAL: Denies headache, dizziness, focal weakness. PSYCHIATRIC: Denies change in mood. HOME MEDICATIONS: Please see below. PHYSICAL EXAMINATION: VITAL SIGNS: See below GENERAL: Alert, comfortable, in no acute distress HEENT: Normocephalic, atraumatic, sclera anicteric, moist mucous membranes NECK: Supple, trachea midline CARDIOVASCULAR: Regular rate and rhythm, normal S1 and S2. RESPIRATORY: Clear to auscultation bilaterally with equal air entry bilaterally. No wheezing. ABDOMEN: Obese, soft, nontender, nondistended, bowel sounds present. EXTREMITIES: Left lower extremity is splinted and wrapped in concepción bandages. Pulses 2+ in bilateral dorsalis pedis and radial arteries. Capillary refill <2se c in bilateral lower extremities. NEUROLOGIC: Alert and oriented x3 to person, place and time. No focal deficits appreciated. Able to move toes on bilateral feet. PSYCHIATRIC: Mood and affect appropriate LABORATORY DATA: See below. IMAGING: (per radiology report impression) - L Knee XR 1. Findings above suspicious for an acute nondisplaced fracture of the head of the left fibula. 2. Osteoarthritis of the left knee. - L Hip/pelvis XR 1. No fracture or dislocation of the bony pelvis or left hip. 2. Chronic compression fracture of L5 that can also be seen in the CT abdomen and pelvis on 10/02/2020. - L Ankle XR 1. Acute minimally displaced oblique fracture involving the left distal fi bular metaphysis. 2. Acute minimally displaced fracture involving the left posterior malleolus. - L Tibia/Fibula XR 1. Findings above suspicious for an acute nondisplaced fracture of the head of the left fibula. 2. Acute minimally distal fracture involving the left distal fibular metaphysis. 3. Acute minimally displaced fracture involving the left posterior malleolus. - CXR 1. No acute findings. 2. Cardiomegaly, which is similar in appearance compared to the prior chest x-ray on 07/30/2020. MICROBIOLOGY: Please see below. ASSESSMENT: 65 year old female with extensive PMHx presented after acute trauma admitted for surgical evaluation of L bimalleolar fracture seen on XR. PLAN: 1. Left bimalleolar fracture secondary to trauma - Orthopedic surgery consulted, appreciate their input and recommendations - Immobilization splint applied in the ED - Pain control with IV morphine for now as she is NPO for possible surgical intervention. 2. Liver cirrhosis secondary to alpha-1 antitrypsin deficiency vs LISA - hold home torsemide and bisoprolol while NPO 3. 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 Paroxysmal atrial fibrillation - Currently in sinus rhythm on EKG - hold home bisoprolol while NPO - not on anticoagulation due to hx GI bleed and GAVE 6. Hypothyroidism - hold home levothyroxine while NPO 7. Peripheral neuropathy - hold home gabapentin while NPO 8. Depression with insomnia - hold home venlafazine and trazodone while NPO DVT Prophylaxis: Harinder and SCD to right leg only. Hold on medical prophylaxis for possible surgery Diet: NPO until evaluated by orthopedic surgery for possible surgery Disposition: admitted inpatient to med/surg expect greater than two midnights s yonathan pending orthopedic evaluation Vital Signs Vital Signs Date Time Temp Pulse Resp B/P (MAP) Pulse Ox O2 Delivery O2 Flow Rate FiO2 11/19/20 05:15 66 18 141/70 (93) 92 Room Air 11/19/20 00:31 96.8 Laboratory Data Labs 24H Laboratory Tests 2 11/19/20 00:51: Nucleated Red Blood Cells % (auto) 0.0, Immature Platelet Fraction 2.6, Anion Gap 5L, Glomerular Filtration Rate > 60.0, Calcium Level 8.9 11/19/20 03:38: Coronavirus (COVID-19)(PCR) NEGATIVE, Influenza Type A (RT-PCR) NEGATIVE, Influenza Type B (RT-PCR) NEGATIVE, Respiratory Syncytial Virus (PCR) NEGATIVE CBC/BMP Laboratory Tests 11/19/20 00:51 Home Medications Scheduled Bisoprolol Fumarate (Bisoprolol Fumarate) 5 Mg Tablet, 5 MG PO BID Calcium Carbonate/Vitamin D3 (Calcium 500-Vit D3 200 Tablet) 1 Each Tablet, 2 TAB PO QHS Cyanocobalamin (Vitamin B-12) (Vitamin B-12) 1,000 Mcg Tablet, 1,000 MCG PO QHS Cyclobenzaprine HCl (Cyclobenzaprine HCl) 10 Mg Tablet, 10 MG PO TID Gabapentin (Gabapentin) 800 Mg Tablet, 800 MG PO BID Gabapentin (Gabapentin) 400 Mg Capsule, 400 MG PO DAILY TAKES AT 1500 Levothyroxine Sodium (Levothyroxine Sodium) 88 Mcg Tablet, 88 MCG PO DAILY Pantoprazole Sodium (Pantoprazole Sodium) 40 Mg Tablet.dr, 40 MG PO BID Potassium Chloride (Potassium Chloride) 20 Meq Tab.er.prt, 20 MEQ PO QHS Torsemide (Torsemide) 20 Mg Tablet, 20 MG PO BID 0900, 1500 Trazodone HCl (Trazodone HCl) 150 Mg Tablet, 150 MG PO QHS Venlafaxine HCl (Venlafaxine HCl ER) 75 Mg Cap.er.24h, 75 MG PO DAILY Venlafaxine HCl (Venlafaxine HCl ER) 75 Mg Cap.er.24h, 150 MG PO QHS Vitamin B Complex (Vitamin B Complex) 1 Each Tablet, 1 TAB PO DAILY Scheduled PRN Docusate Sodium (Docusate Sodium) 100 Mg Capsule, 100 MG PO BID PRN for CONSTIPATION Ipratropium/Albuterol Sulfate (Iprat-Albut 0.5-3(2.5) mg/3 ml) 3 Ml Ampul.neb, 3 ML INH Q6H PRN for SHORTNESS OF BREATH Allergies Coded Allergies: naloxone (Verified Allergy, Unknown, sz, 10/01/20) codeine (Verified Adverse Reaction, Intermediate, CHESP PAIN, 10/01/20) ibuprofen (Verified Adverse Reaction, Intermediate, JOINT/ MUSCLE PAIN, 10/01/20) pregabalin (Verified Adverse Reaction, Intermediate, chest pain, 10/01/20) amoxicillin (Verified Adverse Reaction, Mild, vomiting and diarrhea, 10/01/20) clavulanic acid (Verified Adverse Reaction, Mild, vomiting and diarrhea, 10/01/20) erythromycin base (Verified Adverse Reaction, Mild, vomting diarrhea, 10/01/20) hydromorphone (Verified Adverse Reaction, Mild, ITCHING, 10/01/20) CAN TAKE IF BENADRYL GIVEN PRIOR A-FIB/CHADSVASC A-FIB History Current/History of A-Fib/PAF?: Yes Current PO Anticoag Therapy: No Treatment Treatment ordered: NONE Reason Anticoagulant not given: Other Other reason anticoagulant not: Hx GI bleeding and GAVE GME ATTESTATION GME ATTESTATION My faculty preceptor for this patient encounter was physically present during the encounter and was fully available. All aspects of the patient interview, ex amination, medical decision making process, and medical care plan development were reviewed and approved by the faculty preceptor. The faculty preceptor is aware and concurs with the plan as stated in the body of this note and will attest to such by his/her cosignature. ATTENDING NOTE Patient was seen on 11/19/2020. I, Jun Garrison, have independently examined this patient and performed my own physical exam, as well as reviewed the documentation and edited where necessary. I have discussed in detail with the resident / student the findings and plan of treatment as documented by the resident / student and edited their note. I agree with their findings and treatment plan and have edited their documentation. I will continue to follow the patient during this hospital stay. ALF OLVERA D.O. Nov 19, 2020 06:04 ARABELLA GARRISON MD Nov 20, 2020 01:14
[2020-11-19] MEDS ORDERED: ONDANSETRON 4MG/2ML VIAL IV PRN (06:40)
[2020-11-19] MEDS ORDERED: MORPHINE 2 MG/ML 1ML VIAL (J2270) IV PRN ×3 (06:40→17:15)
--- NOTE | 2020-11-19 10:39 | REP ---
INDICATION: assess fracture morphology. COMPARISON: Radiographs 11/19/2020. TECHNIQUE: Axial CT performed left ankle, sagittal and coronal reconstruction images. FINDINGS: Mildly comminuted fracture distal fibula noted. The primary fracture plane is oblique. There is mild posterolateral displacement of the major distal fragment. There is a mildly comminuted fracture of the posterior malleolus of the distal tibia which communicates with the tibiotalar joint. There is slight posterior displacement of the major fracture fragment. The tibiotalar joint space is decreased posteriorly in the region of the fracture and mildly increased anteriorly. The remaining osseous structures are intact. There is mild posterior and inferior calcaneal spurring. Two accessory ossicles are seen at the medial margin of the navicular bone. There is diffuse moderate intertarsal joint space narrowing with scattered subchondral sclerosis and cystic change. There is diffuse superficial soft tissue edema. IMPRESSION: Comminuted fractures of distal fibula and tibia as discussed above. <Electronically signed by Alejandro Coleman > 11/19/20 [id number]
[2020-11-19] MEDS ORDERED: MORPHINE 4 MG/ML 1ML VIAL/SYRINGE (J2270) IV PRN ×2 (10:40→18:00)
--- NOTE | 2020-11-19 11:13 | CR ---
CONSULTATION DATE: 11/19/2020 CHIEF COMPLAINT: Left ankle fracture. HISTORY OF PRESENT ILLNESS: This 65[facility]year-old [facility] She tripped over a sign. She twisted her ankle. X-rays revealed a fracture. She was splinted by the emergency department physician global transportation manager, admitted by the hospitalist service. No prior history of pain or problems with that ankle, although she has had a previous apparently ankle sprain on the other side. PAST MEDICAL HISTORY: 1. Alpha-1 antitrypsin deficiency. 2. Chronic obstructive pulmonary disease (COPD). 3. Liver cirrhosis. 4. Portal hypertension. 5. Gastric antral vascular ectasia (GAVE). 6. History of gastrointestinal (GI) bleed. 7. Bilateral sciatica. 8. Right cerebrovascular accident (CVA). 9. Seizures. 10. Hemorrhoids. 11. Congestive heart failure, diastolic. 12. Pulmonary hypertension. 13. Nephrolithiasis. 14. Osteoporosis. 15. Hypothyroidism. 16. Pulmonary nodules. 17. Atrial fibrillation. 18. Pancytopenia. 19. Neuropathy. 20. Depression/insomnia. 21. Morbid obesity. 22. B12 deficiency. 23. Methicillin-resistant Staphylococcus aureus (MRSA). 24. History of deep venous thrombosis (DVT) in multiple extremities. SURGICAL HISTORY: 1. Cholecystectomy. 2. Hemorrhoidectomy. 3. Appendectomy. 4. Tonsillectomy. 5. Upper endoscopy. 6. Midline insertions. 7. Adenoidectomy. 6. (C) section. 7. Hysterectomy. 8. Left knee arthroscopy. 9. Incarcerated abdominal hernia. SOCIAL HISTORY: Never smoker. ALLERGIES: MEDICATIONS: Include: - calcium - cyanocobalamin - cyclobenzaprine - gabapentin - levothyroxine - pantoprazole - calcium chloride - torsemide - trazodone - venlafaxine ALLERGIES: NALOXONE, CODEINE, IBUPROFEN, PREGABALIN, AMOXICILLIN, CLAVULANIC ACID, ERYTHROMYCIN, HYDROMORPHONE. PHYSICAL EXAMINATION: A 65-year-old female. She is morbidly obese. She has a splint on the lower extremity on the left side. She can wiggle her toes. She has decreased sensation in the toes at baseline. Capillary refill 3 seconds. Foot is warm and well-perfused. IMAGING DATA: Radiographs were reviewed of the left ankle, AP, lateral, two obliques. This shows slightly displaced 2 mm or less oblique disarticulated fracture at the level of the joint as well as a small posterior malleolus fracture, possibly a mild subluxation posteriorly at the talus. ASSESSMENT AND PLAN: A 65-year-old female with a very slightly displaced left ankle fracture. I have consulted my colleague, Dr. Johnson, who performs more complex trauma surgeries than myself. He recommended a CT scan, which I will order of the left ankle. For now, we will keep her in the splint and make her diet as tolerated while consideration is given to surgical management, whether at this facility or another, as well as possibly even considering nonsurgical management in a cast. For now, while we are fully working this up and deciding on the best course of treatment, we will keep the patient diet as tolerated for now, elevating the leg and medical management by the hospitalist service. ADDENDUM: After consultation with Dr. Johnson, he would like to book the patient for ORIF likely Tuesday of next week. The option is for the patient to stay in hospital until then, or be discharged home and FU day of surgery. I will leave this up to Dr. Johnson, the patient and the hospitalist service to decide. MTDD
[2020-11-19 14:00] VITALS: BP 102/58
[2020-11-19] MEDS ORDERED: IPRATROPIUM 0.5MG/ALBUTEROL 2.5MG INH SOL UD 3ML (DUONEB) INH PRN (19:45)
[2020-11-19] MEDS: DOCUSATE SODIUM 100MG CAPSULE PO SCH ×2 (21:00→21:24)
[2020-11-19] MEDS: CYANOCOBALAMIN 500 MCG TAB PO SCH (21:22)
[2020-11-19] MEDS: VENLAFAXINE **XR** 75MG CAPSULE PO SCH (21:22)
[2020-11-19] MEDS: POTASSIUM CHLORIDE 10 MEQ SR TABLET PO SCH (21:24)
[2020-11-19] MEDS: traZODone 50 MG TAB PO SCH (21:24)
[2020-11-19] MEDS: PANTOPRAZOLE 40MG TAB (PROTONIX) PO SCH (21:24)
[2020-11-19] MEDS: bisoproloL fumarate 5 MG TAB PO SCH (21:24)
[2020-11-19] MEDS: GABAPENTIN 400MG CAP PO SCH (21:24)
[2020-11-19] MEDS: TORSEMIDE 20 MG TAB PO SCH (21:24)
[2020-11-19 22:00] VITALS: BP 130/70
[2020-11-20] MEDS: LEVOTHYROXINE 88MCG TABLET (0.088 MG) PO SCH (05:25)
[2020-11-20] MEDS: traMADol 50 MG TAB PO PRN (05:26)
[2020-11-20 06:00] VITALS: BP 120/50
[2020-11-20 07:10] LABS: HEMOGLOBIN 10.7 g/dl (12.0-15.5); MEAN CORPUSCULAR HEMOGLOBIN 32.7 pg (27.0-33.0); MEAN CORPUSCULAR HGB CONC 31.5 g/dl (32.0-36.5); RED BLOOD COUNT 3.27 10^6/uL (4.00-5.40); WHITE BLOOD COUNT 4.6 10^3/uL (4.0-10.0)
[2020-11-20 07:14] LABS: PLATELET COUNT, AUTOMATED 58 10^3/uL (150-450)
[2020-11-20 07:30] LABS: BLOOD UREA NITROGEN 23 MG/DL (7-18); CALCIUM LEVEL 8.5 MG/DL (8.8-10.2); CARBON DIOXIDE LEVEL 27 MEQ/L (21-32); CHLORIDE LEVEL 109 MEQ/L (98-107); CREATININE FOR GFR 0.85 MG/DL (0.55-1.30); GLOMERULAR FILTRATION RATE > 60.0 (>45); GLUCOSE, FASTING 97 MG/DL (70-100); POTASSIUM SERUM 4.7 MEQ/L (3.5-5.1); SODIUM LEVEL 140 MEQ/L (136-145)
[2020-11-20] MEDS: GABAPENTIN 400MG CAP PO SCH ×3 (08:16→20:51)
[2020-11-20] MEDS: PANTOPRAZOLE 40MG TAB (PROTONIX) PO SCH ×2 (08:17→20:50)
[2020-11-20] MEDS: DOCUSATE SODIUM 100MG CAPSULE PO SCH ×2 (08:17→20:52)
[2020-11-20] MEDS: bisoproloL fumarate 5 MG TAB PO SCH ×2 (08:17→20:52)
[2020-11-20] MEDS: TORSEMIDE 20 MG TAB PO SCH ×2 (08:17→20:51)
[2020-11-20] MEDS: VENLAFAXINE **XR** 75MG CAPSULE PO SCH ×2 (08:17→20:51)
[2020-11-20 10:21] LABS: PHOSPHORUS LEVEL 2.7 MG/DL (2.5-4.9)
[2020-11-20 14:00] VITALS: BP 106/78
[2020-11-20] MEDS ORDERED: traMADol 50 MG TAB PO PRN (15:55)
[2020-11-20] MEDS: CYCLOBENZAPRINE 10MG TABLET PO SCH ×2 (16:00→20:49)
--- NOTE | 2020-11-20 16:00 | IPNPDOC ---
Date Seen The patient was seen on 11/20/20. Progress Note SUBJECTIVE: Discussed case with Dr. Mark, Dr. Ordaz with prior cardiac history. Holding off on surgery until 11/25/20, cannot discharge due to unsteadiness, fall risk with NWB status for LLE. Denies increased pain, fevers, chills but admits to cramping in legs, restarted antispasmotics. OBJECTIVE: PHYSICAL EXAMINATION: VITAL SIGNS: See below GENERAL: Alert, comfortable, in no acute distress HEENT: Normocephalic, atraumatic, sclera anicteric, moist mucous membranes NECK: Supple, trachea midline CARDIOVASCULAR: Regular rate and rhythm, normal S1 and S2. RESPIRATORY: Clear to auscultation bilaterally with equal air entry bilaterally. No wheezing. ABDOMEN: morbidly obese, soft, nontender, nondistended, bowel sounds present. EXTREMITIES: Left lower extremity is splinted and wrapped in concepción bandages. Pulses 2+ in bilateral dorsalis pedis and radial arteries. Capillary refill <2sec in bilateral lower extremities. NEUROLOGIC: Alert and oriented x3 to person, place and time. No focal deficits appreciated. Able to move toes on bilateral feet. PSYCHIATRIC: Mood and affect appropriate LABORATORY DATA: See below. IMAGING: - L Knee XR 1. Findings above suspicious for an acute nondisplaced fracture of the head of the left fibula. 2. Osteoarthritis of the left knee. - L Hip/pelvis XR 1. No fracture or dislocation of the bony pelvis or left hip. 2. Chronic compression fracture of L5 that can also be seen in the CT abdomen and pelvis on 10/02/2020. - L Ankle XR 1. Acute minimally displaced oblique fracture involving the left distal fibular metaphysis. 2. Acute minimally displaced fracture involving the left posterior malleolus. - L Tibia/Fibula XR 1. Findings above suspicious for an acute nondisplaced fracture of the head of the left fibula. 2. Acute minimally distal fracture involving the left distal fibular metaphysis. 3. Acute minimally displaced fracture involving the left posterior malleolus. - CXR 1. No acute findings. 2. Cardiomegaly, which is similar in appearance compared to the prior chest x-ray on 07/30/2020. MICROBIOLOGY: Please see below. ASSESSMENT: 65 year old female with extensive PMHx presented after acute trauma admitted for surgical evaluation of L bimalleolar fracture seen on XR. PLAN: Left bimalleolar fracture secondary to trauma -Orthopedic surgery. Discussed case with Dr. Mark today who states surgery to be done 11/25/[address] Johnson. Could d/c home if patient was able to ambulate well but she cannot. She will stay here until that time. -RCRI score: Class IV risk, 3 points. -Intermediate risk for intermediate risk surgery -Risk with likely DASHA, morbid obesity but no contraindications from cardiac standpoint. -Immobilization splint in place -D/c morphine, NWB on LLE for now -Percocet, tramadol, tylenol. 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 DVT px - AC CI due to hx of bleeding DISPOSITION: Inpatient admission. PT ordered but NWB of LLE. Plan for OR on 11/25/20 VS, I&O, 24H, Fishbone Vital Signs/I&O Vital Signs Date Time Temp Pulse Resp B/P (MAP) Pulse Ox O2 Delivery O2 Flow Rate FiO2 11/20/20 08:17 68 120/50 11/20/20 08:10 2.0 11/20/20 06:00 98.1 14 94 Nasal Cannula I&O- Last 24 Hours up to 6 AM 11/20/20 05:59 Intake Total 1390 ml Output Total 900 ml Balance 490 ml Laboratory Data 24H LABS Laboratory Tests 2 11/20/20 06:44: Nucleated Red Blood Cells % (auto) 0.0, Immature Platelet Fraction 2.6, Anion Gap 4L, Glomerular Filtration Rate > 60.0, Calcium Level 8.5L, Phosphorus Level 2.7, Magnesium Level 2.0 CBC/BMP Laboratory Tests 11/20/20 06:44 Current Medications Current Medications Medications (Trade) Dose Ordered Sig/Radha Route PRN Reason Start Time Stop Time Status Last Admin Dose Admin Albuterol/ Ipratropium (Duoneb (Ipr 0.5mg/Alb 2.5mg)) 3 ml Q6H PRN INH SHORTNESS OF BREATH 11/19/20 19:45 Bisoprolol Fumarate (Zebeta) 5 mg BID PO 11/19/20 21:00 11/20/20 08:17 Cyanocobalamin (Vitamin B12) 1,000 mcg QHS PO 11/19/20 21:00 11/19/20 21:22 Cyclobenzaprine HCl (Flexeril) 10 mg TID PO 11/20/20 16:00 Docusate Sodium (Colace) 100 mg BID PO 11/19/20 21:00 11/20/20 08:17 Gabapentin (Neurontin) 400 mg DAILY PO 11/20/20 15:00 11/20/20 15:17 Gabapentin (Neurontin) 800 mg BID PO 11/19/20 21:00 11/20/20 08:16 Home Med (Med Rec Complete!) ASDIRECTED XX 11/19/20 05:10 11/19/20 05:09 DC Levothyroxine Sodium (Synthroid) 88 mcg DAILY@0600 PO 11/20/20 06:00 11/20/20 05:25 Morphine Sulfate (Morphine Sulfate Inj) 1 mg Q4H PRN IV MILD/MODERATE PAIN (PS 1-7) 11/19/20 06:40 11/19/20 17:15 DC 11/19/20 16:41 Morphine Sulfate (Morphine Sulfate Inj) 1 mg Q6HP PRN IV MILD/MODERATE PAIN (PS 1-7) 11/19/20 17:15 11/20/20 15:53 DC Morphine Sulfate (Morphine Sulfate Inj) 2 mg Q4H PRN IV SEVERE PAIN (PS 8-10) 11/19/20 06:40 11/19/20 08:54 DC Morphine Sulfate (Morphine Sulfate Inj) 2 mg Q6HP PRN IV SEVERE PAIN (PS 8-10) 11/19/20 18:00 11/19/20 19:48 DC Morphine Sulfate (Morphine Sulfate Inj) 4 mg Q30M PRN IV SEVERE PAIN (PS 8-10) 11/19/20 03:35 11/19/20 06:23 DC 11/19/20 06:22 Morphine Sulfate (Morphine Sulfate Inj) 4 mg Q4H PRN IV SEVERE PAIN (PS 8-10) 11/19/20 10:40 11/19/20 17:15 DC 11/19/20 09:43 Ondansetron HCl (ZOFRAN INJection) 4 mg Q6H PRN IV NAUSEA 11/19/20 06:40 Oxycodone/ Acetaminophen (Percocet 5mg/ 325mg Tablet) 1 tab Q4HP PRN PO SEVERE PAIN (PS 8-10) 11/20/20 15:55 Pantoprazole Sodium (Protonix) 40 mg BID PO 11/19/20 21:00 11/20/20 08:17 Polyethylene Glycol (Miralax) 1 pkt DAILYPRN PRN PO CONSTIPATION 11/20/20 15:55 Potassium Chloride (Micro-K Extencaps) 20 meq QHS PO 11/19/20 21:00 11/19/20 21:24 Torsemide (Demadex) 20 mg BID PO 11/19/20 21:00 11/20/20 08:17 Tramadol HCl (Ultram) 50 mg Q6H PRN PO MILD/MODERATE PAIN (PS 1-7) 11/19/20 19:45 Tramadol HCl (Ultram) 50 mg Q6HP PRN PO MODERATE PAIN (PS 5-7) 11/20/20 15:55 Tramadol HCl (Ultram) 100 mg Q6H PRN PO SEVERE PAIN (PS 8-10) 11/19/20 19:45 11/20/20 05:26 Trazodone HCl (Desyrel) 150 mg QHS PO 11/19/20 21:00 11/19/20 21:24 Venlafaxine HCl (Effexor Xr) 75 mg DAILY PO 11/20/20 09:00 11/20/20 08:17 Venlafaxine HCl (Effexor Xr) 150 mg QHS PO 11/19/20 21:00 11/19/20 21:22 Allergies Coded Allergies: naloxone (Verified Allergy, Unknown, sz, 10/01/20) codeine (Verified Adverse Reaction, Intermediate, CHESP PAIN, 10/01/20) ibuprofen (Verified Adverse Reaction, Intermediate, JOINT/ MUSCLE PAIN, 10/01/20) pregabalin (Verified Adverse Reaction, Intermediate, chest pain, 10/01/20) amoxicillin (Verified Adverse Reaction, Mild, vomiting and diarrhea, 10/01/20) clavulanic acid (Verified Adverse Reaction, Mild, vomiting and diarrhea, 10/01/20) erythromycin base (Verified Adverse Reaction, Mild, vomting diarrhea, 10/01/20) hydromorphone (Verified Adverse Reaction, Mild, ITCHING, 10/01/20) CAN TAKE IF BENADRYL GIVEN PRIOR Georgie Parks MD Nov 20, 2020 16:00
[2020-11-20 20:40] VITALS: BP 109/56
[2020-11-20] MEDS: POTASSIUM CHLORIDE 10 MEQ SR TABLET PO SCH (20:50)
[2020-11-20] MEDS: CYANOCOBALAMIN 500 MCG TAB PO SCH (20:50)
[2020-11-20] MEDS: traZODone 50 MG TAB PO SCH (20:51)
[2020-11-21 04:39] VITALS: BP 105/53
[2020-11-21] MEDS: LEVOTHYROXINE 88MCG TABLET (0.088 MG) PO SCH (05:05)
[2020-11-21] MEDS: traMADol 50 MG TAB PO PRN ×3 (05:06→20:30)
[2020-11-21 06:19] LABS: HEMATOCRIT 30.6 % (36.0-47.0); HEMOGLOBIN 9.8 g/dl (12.0-15.5); MEAN CORPUSCULAR HEMOGLOBIN 33.1 pg (27.0-33.0); MEAN CORPUSCULAR VOLUME 103.4 fl (80.0-96.0); RED BLOOD COUNT 2.96 10^6/uL (4.00-5.40); WHITE BLOOD COUNT 2.7 10^3/uL (4.0-10.0)
[2020-11-21 06:23] LABS: PLATELET COUNT, AUTOMATED 45 10^3/uL (150-450)
[2020-11-21 06:45] LABS: BLOOD UREA NITROGEN 18 MG/DL (7-18); CALCIUM LEVEL 8.8 MG/DL (8.8-10.2); CARBON DIOXIDE LEVEL 30 MEQ/L (21-32); CHLORIDE LEVEL 108 MEQ/L (98-107); CREATININE FOR GFR 0.76 MG/DL (0.55-1.30); GLOMERULAR FILTRATION RATE > 60.0 (>45); GLUCOSE, FASTING 95 MG/DL (70-100); POTASSIUM SERUM 3.6 MEQ/L (3.5-5.1); SODIUM LEVEL 143 MEQ/L (136-145)
[2020-11-21] MEDS: TORSEMIDE 20 MG TAB PO SCH (10:12)
[2020-11-21] MEDS: DOCUSATE SODIUM 100MG CAPSULE PO SCH ×2 (10:12→20:28)
[2020-11-21] MEDS: GABAPENTIN 400MG CAP PO SCH ×3 (10:13→20:28)
[2020-11-21] MEDS: CYCLOBENZAPRINE 10MG TABLET PO SCH ×3 (10:13→20:28)
[2020-11-21] MEDS: VENLAFAXINE **XR** 75MG CAPSULE PO SCH ×2 (10:13→20:28)
[2020-11-21] MEDS: bisoproloL fumarate 5 MG TAB PO SCH ×2 (10:13→20:23)
[2020-11-21] MEDS: PANTOPRAZOLE 40MG TAB (PROTONIX) PO SCH ×2 (10:13→20:28)
[2020-11-21 14:00] VITALS: BP 101/48
--- NOTE | 2020-11-21 15:36 | IPNPDOC ---
Date Seen The patient was seen on 11/21/20. Progress Note SUBJECTIVE: No events overnight. Denies increased pain, shortness of breath, n/v/d. OBJECTIVE: PHYSICAL EXAMINATION: VITAL SIGNS: See below GENERAL: Alert, comfortable, in no acute distress HEENT: Normocephalic, atraumatic, sclera anicteric, moist mucous membranes NECK: Supple, trachea midline CARDIOVASCULAR: Regular rate and rhythm, normal S1 and S2. RESPIRATORY: Clear to auscultation bilaterally with equal air entry bilaterally. No wheezing. ABDOMEN: morbidly obese, soft, nontender, nondistended, bowel sounds present. EXTREMITIES: Left lower extremity is splinted and wrapped in concepción bandages. ROM not tested. Pulses 2+ in bilateral dorsalis pedis and radial arteries. Capillary refill <2sec in bilateral lower extremities. NEUROLOGIC: Alert and oriented x3 to person, place and time. No focal deficits appreciated. Able to move toes on bilateral feet. PSYCHIATRIC: Mood and affect appropriate LABORATORY DATA: See below. IMAGING: - L Knee XR 1. Findings above suspicious for an acute nondisplaced fracture of the head of the left fibula. 2. Osteoarthritis of the left knee. - L Hip/pelvis XR 1. No fracture or dislocation of the bony pelvis or left hip. 2. Chronic compression fracture of L5 that can also be seen in the CT abdomen and pelvis on 10/02/2020. - L Ankle XR 1. Acute minimally displaced oblique fracture involving the left distal fibular metaphysis. 2. Acute minimally displaced fracture involving the left posterior malleolus. - L Tibia/Fibula XR 1. Findings above suspicious for an acute nondisplaced fracture of the head of the left fibula. 2. Acute minimally distal fracture involving the left distal fibular metaphysis. 3. Acute minimally displaced fracture involving the left posterior malleolus. - CXR 1. No acute findings. 2. Cardiomegaly, which is similar in appearance compared to the prior chest x-ray on 07/30/2020. MICROBIOLOGY: Please see below. ASSESSMENT: 65 year old female with extensive PMHx presented after acute trauma admitted for surgical evaluation of L bimalleolar fracture seen on XR. PLAN: Left bimalleolar fracture secondary to trauma -Surgery to be done 11/25/[address] Johnson. -RCRI score: Class IV risk, 3 points. -Intermediate risk for intermediate risk surgery -Risk with likely DASHA, morbid obesity but no contraindications from cardiac standpoint. -Immobilization splint in place -NWB on LLE for now -Percocet, tramadol, tylenol. 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 DVT px - AC CI due to hx of bleeding. Teds, SCD DISPOSITION: Inpatient admission. PT ordered but NWB of LLE. Plan for OR on 11/25/20 VS, I&O, 24H, Fishbone Vital Signs/I&O Vital Signs Date Time Temp Pulse Resp B/P (MAP) Pulse Ox O2 Delivery O2 Flow Rate FiO2 11/21/20 14:00 97.8 70 18 101/48 (65) 94 Nasal Cannula 2.0 I&O- Last 24 Hours up to 6 AM 11/21/20 05:59 Intake Total 2150 ml Output Total 550 ml Balance 1600 ml Laboratory Data 24H LABS Laboratory Tests 2 11/21/20 05:59: Nucleated Red Blood Cells % (auto) 0.0, Anion Gap 5L, Glomerular Filtration Rate > 60.0, Calcium Level 8.8 CBC/BMP Laboratory Tests 11/21/20 05:59 Current Medications Current Medications Medications (Trade) Dose Ordered Sig/Radha Route PRN Reason Start Time Stop Time Status Last Admin Dose Admin Albuterol/ Ipratropium (Duoneb (Ipr 0.5mg/Alb 2.5mg)) 3 ml Q6H PRN INH SHORTNESS OF BREATH 11/19/20 19:45 Bisoprolol Fumarate (Zebeta) 5 mg BID PO 11/19/20 21:00 11/20/20 08:17 Cyanocobalamin (Vitamin B12) 1,000 mcg QHS PO 11/19/20 21:00 11/20/20 20:50 Cyclobenzaprine HCl (Flexeril) 10 mg TID PO 11/20/20 16:00 11/21/20 10:13 Docusate Sodium (Colace) 100 mg BID PO 11/19/20 21:00 11/21/20 10:12 Gabapentin (Neurontin) 400 mg DAILY PO 11/20/20 15:00 11/21/20 10:13 Gabapentin (Neurontin) 800 mg BID PO 11/19/20 21:00 11/21/20 10:13 Home Med (Med Rec Complete!) ASDIRECTED XX 11/19/20 05:10 11/19/20 05:09 DC Levothyroxine Sodium (Synthroid) 88 mcg DAILY@0600 PO 11/20/20 06:00 11/21/20 05:05 Morphine Sulfate (Morphine Sulfate Inj) 1 mg Q4H PRN IV MILD/MODERATE PAIN (PS 1-7) 11/19/20 06:40 11/19/20 17:15 DC 11/19/20 16:41 Morphine Sulfate (Morphine Sulfate Inj) 1 mg Q6HP PRN IV MILD/MODERATE PAIN (PS 1-7) 11/19/20 17:15 11/20/20 15:53 DC Morphine Sulfate (Morphine Sulfate Inj) 2 mg Q4H PRN IV SEVERE PAIN (PS 8-10) 11/19/20 06:40 11/19/20 08:54 DC Morphine Sulfate (Morphine Sulfate Inj) 2 mg Q6HP PRN IV SEVERE PAIN (PS 8-10) 11/19/20 18:00 11/19/20 19:48 DC Morphine Sulfate (Morphine Sulfate Inj) 4 mg Q30M PRN IV SEVERE PAIN (PS 8-10) 11/19/20 03:35 11/19/20 06:23 DC 11/19/20 06:22 Morphine Sulfate (Morphine Sulfate Inj) 4 mg Q4H PRN IV SEVERE PAIN (PS 8-10) 11/19/20 10:40 11/19/20 17:15 DC 11/19/20 09:43 Ondansetron HCl (ZOFRAN INJection) 4 mg Q6H PRN IV NAUSEA 11/19/20 06:40 Oxycodone/ Acetaminophen (Percocet 5mg/ 325mg Tablet) 1 tab Q4HP PRN PO SEVERE PAIN (PS 8-10) 11/20/20 15:55 Pantoprazole Sodium (Protonix) 40 mg BID PO 11/19/20 21:00 11/21/20 10:13 Polyethylene Glycol (Miralax) 1 pkt DAILYPRN PRN PO CONSTIPATION 11/20/20 15:55 Potassium Chloride (Micro-K Extencaps) 20 meq QHS PO 11/19/20 21:00 11/20/20 20:50 Torsemide (Demadex) 20 mg BID PO 11/19/20 21:00 11/21/20 10:12 Tramadol HCl (Ultram) 50 mg Q6H PRN PO MILD/MODERATE PAIN (PS 1-7) 11/19/20 19:45 11/21/20 12:32 Tramadol HCl (Ultram) 50 mg Q6HP PRN PO MODERATE PAIN (PS 5-7) 11/20/20 15:55 Tramadol HCl (Ultram) 100 mg Q6H PRN PO SEVERE PAIN (PS 8-10) 11/19/20 19:45 11/21/20 05:06 Trazodone HCl (Desyrel) 150 mg QHS PO 11/19/20 21:00 11/20/20 20:51 Venlafaxine HCl (Effexor Xr) 75 mg DAILY PO 11/20/20 09:00 11/21/20 10:13 Venlafaxine HCl (Effexor Xr) 150 mg QHS PO 11/19/20 21:00 11/20/20 20:51 Allergies Coded Allergies: naloxone (Verified Allergy, Unknown, sz, 10/01/20) codeine (Verified Adverse Reaction, Intermediate, CHESP PAIN, 10/01/20) ibuprofen (Verified Adverse Reaction, Intermediate, JOINT/ MUSCLE PAIN, 10/01/20) pregabalin (Verified Adverse Reaction, Intermediate, chest pain, 10/01/20) amoxicillin (Verified Adverse Reaction, Mild, vomiting and diarrhea, 10/01/20) clavulanic acid (Verified Adverse Reaction, Mild, vomiting and diarrhea, 10/01/20) erythromycin base (Verified Adverse Reaction, Mild, vomting diarrhea, 10/01/20) hydromorphone (Verified Adverse Reaction, Mild, ITCHING, 10/01/20) CAN TAKE IF BENADRYL GIVEN PRIOR Georgie Parks MD Nov 21, 2020 15:36
[2020-11-21] MEDS: traZODone 50 MG TAB PO SCH (20:28)
[2020-11-21] MEDS: CYANOCOBALAMIN 500 MCG TAB PO SCH (20:29)
[2020-11-21] MEDS: POTASSIUM CHLORIDE 10 MEQ SR TABLET PO SCH (20:29)
[2020-11-21 21:17] VITALS: BP 106/46
[2020-11-22 05:45] VITALS: BP 97/54
[2020-11-22] MEDS: TORSEMIDE 20 MG TAB PO SCH ×2 (05:51→14:09)
[2020-11-22] MEDS: LEVOTHYROXINE 88MCG TABLET (0.088 MG) PO SCH (05:51)
[2020-11-22] MEDS: traMADol 50 MG TAB PO PRN ×3 (05:51→20:27)
[2020-11-22 06:43] LABS: HEMATOCRIT 31.2 % (36.0-47.0); HEMOGLOBIN 9.7 g/dl (12.0-15.5); MEAN CORPUSCULAR HEMOGLOBIN 32.4 pg (27.0-33.0); MEAN CORPUSCULAR HGB CONC 31.1 g/dl (32.0-36.5); MEAN CORPUSCULAR VOLUME 104.3 fl (80.0-96.0); PLATELET COUNT, AUTOMATED 43 10^3/uL (150-450); RED BLOOD COUNT 2.99 10^6/uL (4.00-5.40); WHITE BLOOD COUNT 2.2 10^3/uL (4.0-10.0)
[2020-11-22 07:00] LABS: BLOOD UREA NITROGEN 17 MG/DL (7-18); CALCIUM LEVEL 8.5 MG/DL (8.8-10.2); CARBON DIOXIDE LEVEL 32 MEQ/L (21-32); CHLORIDE LEVEL 108 MEQ/L (98-107); CREATININE FOR GFR 0.57 MG/DL (0.55-1.30); GLOMERULAR FILTRATION RATE > 60.0 (>45); GLUCOSE, FASTING 90 MG/DL (70-100); POTASSIUM SERUM 3.5 MEQ/L (3.5-5.1); SODIUM LEVEL 143 MEQ/L (136-145)
[2020-11-22] MEDS: bisoproloL fumarate 5 MG TAB PO SCH ×2 (09:00→20:24)
[2020-11-22] MEDS: VENLAFAXINE **XR** 75MG CAPSULE PO SCH ×2 (09:04→20:23)
[2020-11-22] MEDS: GABAPENTIN 400MG CAP PO SCH ×3 (09:04→20:23)
[2020-11-22] MEDS: PANTOPRAZOLE 40MG TAB (PROTONIX) PO SCH ×2 (09:05→20:24)
[2020-11-22] MEDS: DOCUSATE SODIUM 100MG CAPSULE PO SCH ×2 (09:05→20:24)
[2020-11-22] MEDS: CYCLOBENZAPRINE 10MG TABLET PO SCH ×3 (09:06→20:24)
[2020-11-22 14:00] VITALS: BP 102/51
--- NOTE | 2020-11-22 15:29 | IPNPDOC ---
Date Seen The patient was seen on 11/22/20. Progress Note SUBJECTIVE: No acute events overnight. OBJECTIVE: PHYSICAL EXAMINATION: VITAL SIGNS: See below GENERAL: Alert, comfortable, in no acute distress HEENT: Normocephalic, atraumatic, sclera anicteric, moist mucous membranes NECK: Supple, trachea midline CARDIOVASCULAR: Regular rate and rhythm, normal S1 and S2. RESPIRATORY: Clear to auscultation bilaterally with equal air entry bilaterally. No wheezing. ABDOMEN: morbidly obese, soft, nontender, nondistended, bowel sounds present. EXTREMITIES: Left lower extremity is splinted and wrapped in concepción bandages. ROM not tested. Pulses 2+ in bilateral dorsalis pedis and radial arteries. Capillary refill <2sec in bilateral lower extremities. NEUROLOGIC: Alert and oriented x3 to person, place and time. No focal deficits appreciated. Able to move toes on bilateral feet. PSYCHIATRIC: Mood and affect appropriate LABORATORY DATA: See below. IMAGING: - L Knee XR 1. Findings above suspicious for an acute nondisplaced fracture of the head of the left fibula. 2. Osteoarthritis of the left knee. - L Hip/pelvis XR 1. No fracture or dislocation of the bony pelvis or left hip. 2. Chronic compression fracture of L5 that can also be seen in the CT abdomen and pelvis on 10/02/2020. - L Ankle XR 1. Acute minimally displaced oblique fracture involving the left distal fibular metaphysis. 2. Acute minimally displaced fracture involving the left posterior malleolus. - L Tibia/Fibula XR 1. Findings above suspicious for an acute nondisplaced fracture of the head of the left fibula. 2. Acute minimally distal fracture involving the left distal fibular metaphysis. 3. Acute minimally displaced fracture involving the left posterior malleolus. - CXR 1. No acute findings. 2. Cardiomegaly, which is similar in appearance compared to the prior chest x-ray on 07/30/2020. MICROBIOLOGY: Please see below. ASSESSMENT: 65 year old female with extensive PMHx presented after acute trauma admitted for surgical evaluation of L bimalleolar fracture seen on XR. PLAN: Left bimalleolar fracture secondary to trauma -Surgery to be done 11/25/[address] Johnson. -RCRI score: Class IV risk, 3 points. -Intermediate risk for intermediate risk surgery -Risk with likely DASHA, morbid obesity but no contraindications from cardiac standpoint. -Immobilization splint in place -NWB on LLE for now -C/w pain control with Percocet, tramadol, tylenol. 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 DVT px - AC CI due to hx of bleeding. Teds, SCD DISPOSITION: Inpatient admission. Plan for OR on 11/25/20 VS, I&O, 24H, Fishbone Vital Signs/I&O Vital Signs Date Time Temp Pulse Resp B/P (MAP) Pulse Ox O2 Delivery O2 Flow Rate FiO2 11/22/20 15:03 16 11/22/20 09:00 2.0 11/22/20 09:00 72 97/54 11/22/20 06:21 97 Nasal Cannula 11/22/20 05:45 98.8 I&O- Last 24 Hours up to 6 AM 11/22/20 05:59 Intake Total 1860 ml Output Total 400 ml Balance 1460 ml Laboratory Data 24H LABS Laboratory Tests 2 11/22/20 06:04: Nucleated Red Blood Cells % (auto) 0.0, Immature Platelet Fraction 3.2, Anion Gap 3L, Glomerular Filtration Rate > 60.0, Calcium Level 8.5L CBC/BMP Laboratory Tests 11/22/20 06:04 Current Medications Current Medications Medications (Trade) Dose Ordered Sig/Radha Route PRN Reason Start Time Stop Time Status Last Admin Dose Admin Albuterol/ Ipratropium (Duoneb (Ipr 0.5mg/Alb 2.5mg)) 3 ml Q6H PRN INH SHORTNESS OF BREATH 11/19/20 19:45 Bisoprolol Fumarate (Zebeta) 5 mg BID PO 11/19/20 21:00 11/20/20 08:17 Cyanocobalamin (Vitamin B12) 1,000 mcg QHS PO 11/19/20 21:00 11/21/20 20:29 Cyclobenzaprine HCl (Flexeril) 10 mg TID PO 11/20/20 16:00 11/22/20 09:06 Docusate Sodium (Colace) 100 mg BID PO 11/19/20 21:00 11/22/20 09:05 Gabapentin (Neurontin) 400 mg DAILY PO 11/20/20 15:00 11/22/20 09:48 DC 11/21/20 10:13 Gabapentin (Neurontin) 400 mg DAILY@1400 PO 11/22/20 14:00 11/22/20 14:09 Gabapentin (Neurontin) 800 mg BID PO 11/19/20 21:00 11/22/20 09:04 Home Med (Med Rec Complete!) ASDIRECTED XX 11/19/20 05:10 11/19/20 05:09 DC Levothyroxine Sodium (Synthroid) 88 mcg DAILY@0600 PO 11/20/20 06:00 11/22/20 05:51 Morphine Sulfate (Morphine Sulfate Inj) 1 mg Q4H PRN IV MILD/MODERATE PAIN (PS 1-7) 11/19/20 06:40 11/19/20 17:15 DC 11/19/20 16:41 Morphine Sulfate (Morphine Sulfate Inj) 1 mg Q6HP PRN IV MILD/MODERATE PAIN (PS 1-7) 11/19/20 17:15 11/20/20 15:53 DC Morphine Sulfate (Morphine Sulfate Inj) 2 mg Q4H PRN IV SEVERE PAIN (PS 8-10) 11/19/20 06:40 11/19/20 08:54 DC Morphine Sulfate (Morphine Sulfate Inj) 2 mg Q6HP PRN IV SEVERE PAIN (PS 8-10) 11/19/20 18:00 11/19/20 19:48 DC Morphine Sulfate (Morphine Sulfate Inj) 4 mg Q30M PRN IV SEVERE PAIN (PS 8-10) 11/19/20 03:35 11/19/20 06:23 DC 11/19/20 06:22 Morphine Sulfate (Morphine Sulfate Inj) 4 mg Q4H PRN IV SEVERE PAIN (PS 8-10) 11/19/20 10:40 11/19/20 17:15 DC 11/19/20 09:43 Ondansetron HCl (ZOFRAN INJection) 4 mg Q6H PRN IV NAUSEA 11/19/20 06:40 Oxycodone/ Acetaminophen (Percocet 5mg/ 325mg Tablet) 1 tab Q4HP PRN PO SEVERE PAIN (PS 8-10) 11/20/20 15:55 Pantoprazole Sodium (Protonix) 40 mg BID PO 11/19/20 21:00 11/22/20 09:05 Polyethylene Glycol (Miralax) 1 pkt DAILYPRN PRN PO CONSTIPATION 11/20/20 15:55 Potassium Chloride (Micro-K Extencaps) 20 meq QHS PO 11/19/20 21:00 11/21/20 20:29 Torsemide (Demadex) 20 mg BID PO 11/19/20 21:00 11/21/20 19:47 DC 11/21/20 10:12 Torsemide (Demadex) 20 mg BID@0600,1400 PO 11/22/20 06:00 11/22/20 14:09 Tramadol HCl (Ultram) 50 mg Q6H PRN PO MILD/MODERATE PAIN (PS 1-7) 11/19/20 19:45 11/22/20 05:51 Tramadol HCl (Ultram) 50 mg Q6HP PRN PO MODERATE PAIN (PS 5-7) 11/20/20 15:55 Tramadol HCl (Ultram) 100 mg Q6H PRN PO SEVERE PAIN (PS 8-10) 11/19/20 19:45 11/22/20 14:10 Trazodone HCl (Desyrel) 150 mg QHS PO 11/19/20 21:00 11/21/20 20:28 Venlafaxine HCl (Effexor Xr) 75 mg DAILY PO 11/20/20 09:00 11/22/20 09:04 Venlafaxine HCl (Effexor Xr) 150 mg QHS PO 11/19/20 21:00 11/21/20 20:28 Allergies Coded Allergies: naloxone (Verified Allergy, Unknown, sz, 10/01/20) codeine (Verified Adverse Reaction, Intermediate, CHESP PAIN, 10/01/20) ibuprofen (Verified Adverse Reaction, Intermediate, JOINT/ MUSCLE PAIN, 10/01/20) pregabalin (Verified Adverse Reaction, Intermediate, chest pain, 10/01/20) amoxicillin (Verified Adverse Reaction, Mild, vomiting and diarrhea, 10/01/20) clavulanic acid (Verified Adverse Reaction, Mild, vomiting and diarrhea, 10/01/20) erythromycin base (Verified Adverse Reaction, Mild, vomting diarrhea, 10/01/20) hydromorphone (Verified Adverse Reaction, Mild, ITCHING, 10/01/20) CAN TAKE IF BENADRYL GIVEN PRIOR Georgie Parks MD Nov 22, 2020 15:29
[2020-11-22 20:16] VITALS: BP 135/62
[2020-11-22] MEDS: CYANOCOBALAMIN 500 MCG TAB PO SCH (20:25)
[2020-11-22] MEDS: traZODone 50 MG TAB PO SCH (20:25)
[2020-11-22] MEDS: POTASSIUM CHLORIDE 10 MEQ SR TABLET PO SCH (20:26)
[2020-11-23] MEDS: traMADol 50 MG TAB PO PRN ×4 (01:59→20:15)
[2020-11-23] MEDS: LEVOTHYROXINE 88MCG TABLET (0.088 MG) PO SCH (05:28)
[2020-11-23] MEDS: TORSEMIDE 20 MG TAB PO SCH ×2 (05:30→14:31)
[2020-11-23 06:19] VITALS: BP 97/53
[2020-11-23] MEDS: DOCUSATE SODIUM 100MG CAPSULE PO SCH ×2 (08:54→20:13)
[2020-11-23] MEDS: bisoproloL fumarate 5 MG TAB PO SCH ×2 (08:54→20:16)
[2020-11-23] MEDS: CYCLOBENZAPRINE 10MG TABLET PO SCH ×3 (08:55→20:14)
[2020-11-23] MEDS: GABAPENTIN 400MG CAP PO SCH ×3 (08:55→20:12)
[2020-11-23] MEDS: PANTOPRAZOLE 40MG TAB (PROTONIX) PO SCH ×2 (08:55→20:13)
[2020-11-23] MEDS: VENLAFAXINE **XR** 75MG CAPSULE PO SCH ×2 (08:55→20:14)
--- NOTE | 2020-11-23 12:17 | IPNPDOC ---
Date Seen The patient was seen on 11/23/20. Progress Note SUBJECTIVE: No acute events overnight. Stable pain. Denies chest pain, shortness of breath. OBJECTIVE: PHYSICAL EXAMINATION: VITAL SIGNS: See below GENERAL: Alert, comfortable, in no acute distress HEENT: Normocephalic, atraumatic, sclera anicteric, moist mucous membranes NECK: Supple, trachea midline CARDIOVASCULAR: Regular rate and rhythm, normal S1 and S2. RESPIRATORY: Clear to auscultation bilaterally with equal air entry bilaterally. No wheezing. ABDOMEN: morbidly obese, soft, nontender, nondistended, bowel sounds present. EXTREMITIES: Left lower extremity is splinted and wrapped in concepción bandages. ROM not tested. Pulses 2+ in bilateral dorsalis pedis and radial arteries. Capillary refill <2sec in bilateral lower extremities. NEUROLOGIC: Alert and oriented x3 to person, place and time. No focal deficits appreciated. Able to move toes on bilateral feet. PSYCHIATRIC: Mood and affect appropriate LABORATORY DATA: See below. IMAGING: - L Knee XR 1. Findings above suspicious for an acute nondisplaced fracture of the head of the left fibula. 2. Osteoarthritis of the left knee. - L Hip/pelvis XR 1. No fracture or dislocation of the bony pelvis or left hip. 2. Chronic compression fracture of L5 that can also be seen in the CT abdomen and pelvis on 10/02/2020. - L Ankle XR 1. Acute minimally displaced oblique fracture involving the left distal fibular metaphysis. 2. Acute minimally displaced fracture involving the left posterior malleolus. - L Tibia/Fibula XR 1. Findings above suspicious for an acute nondisplaced fracture of the head of the left fibula. 2. Acute minimally distal fracture involving the left distal fibular metaphysis. 3. Acute minimally displaced fracture involving the left posterior malleolus. - CXR 1. No acute findings. 2. Cardiomegaly, which is similar in appearance compared to the prior chest x-ray on 07/30/2020. MICROBIOLOGY: Please see below. ASSESSMENT: 65 year old female with extensive PMHx presented after acute trauma admitted for surgical evaluation of L bimalleolar fracture seen on XR. PLAN: Left bimalleolar fracture secondary to trauma -Surgery to be done 11/25/[address] Johnson. -RCRI score: Class IV risk, 3 points. -Intermediate risk for intermediate risk surgery -Risk with likely DASHA, morbid obesity but no contraindications from cardiac standpoint. -Immobilization splint in place -NWB on LLE for now -C/w pain control with Percocet, tramadol, tylenol. 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 DVT px - AC CI due to hx of bleeding. Teds, SCD DISPOSITION: Inpatient admission. Plan for OR on 11/25/20 VS, I&O, 24H, Fishbone Vital Signs/I&O Vital Signs Date Time Temp Pulse Resp B/P (MAP) Pulse Ox O2 Delivery O2 Flow Rate FiO2 11/23/20 09:59 16 11/23/20 09:00 2.0 11/23/20 08:54 66 97/53 11/23/20 06:19 98.0 90 Room Air I&O- Last 24 Hours up to 6 AM 11/23/20 06:00 Intake Total 1410 ml Output Total 700 ml Balance 710 ml Current Medications Current Medications Medications (Trade) Dose Ordered Sig/Radha Route PRN Reason Start Time Stop Time Status Last Admin Dose Admin Albuterol/ Ipratropium (Duoneb (Ipr 0.5mg/Alb 2.5mg)) 3 ml Q6H PRN INH SHORTNESS OF BREATH 11/19/20 19:45 Bisoprolol Fumarate (Zebeta) 5 mg BID PO 11/19/20 21:00 11/22/20 20:24 Cyanocobalamin (Vitamin B12) 1,000 mcg QHS PO 11/19/20 21:00 11/22/20 20:25 Cyclobenzaprine HCl (Flexeril) 10 mg TID PO 11/20/20 16:00 11/23/20 08:55 Docusate Sodium (Colace) 100 mg BID PO 11/19/20 21:00 11/23/20 08:54 Gabapentin (Neurontin) 400 mg DAILY PO 11/20/20 15:00 11/22/20 09:48 DC 11/21/20 10:13 Gabapentin (Neurontin) 400 mg DAILY@1400 PO 11/22/20 14:00 11/22/20 14:09 Gabapentin (Neurontin) 800 mg BID PO 11/19/20 21:00 11/23/20 08:55 Home Med (Med Rec Complete!) ASDIRECTED XX 11/19/20 05:10 11/19/20 05:09 DC Levothyroxine Sodium (Synthroid) 88 mcg DAILY@0600 PO 11/20/20 06:00 11/23/20 05:28 Morphine Sulfate (Morphine Sulfate Inj) 1 mg Q4H PRN IV MILD/MODERATE PAIN (PS 1-7) 11/19/20 06:40 11/19/20 17:15 DC 11/19/20 16:41 Morphine Sulfate (Morphine Sulfate Inj) 1 mg Q6HP PRN IV MILD/MODERATE PAIN (PS 1-7) 11/19/20 17:15 11/20/20 15:53 DC Morphine Sulfate (Morphine Sulfate Inj) 2 mg Q4H PRN IV SEVERE PAIN (PS 8-10) 11/19/20 06:40 11/19/20 08:54 DC Morphine Sulfate (Morphine Sulfate Inj) 2 mg Q6HP PRN IV SEVERE PAIN (PS 8-10) 11/19/20 18:00 11/19/20 19:48 DC Morphine Sulfate (Morphine Sulfate Inj) 4 mg Q30M PRN IV SEVERE PAIN (PS 8-10) 11/19/20 03:35 11/19/20 06:23 DC 11/19/20 06:22 Morphine Sulfate (Morphine Sulfate Inj) 4 mg Q4H PRN IV SEVERE PAIN (PS 8-10) 11/19/20 10:40 11/19/20 17:15 DC 11/19/20 09:43 Ondansetron HCl (ZOFRAN INJection) 4 mg Q6H PRN IV NAUSEA 11/19/20 06:40 Oxycodone/ Acetaminophen (Percocet 5mg/ 325mg Tablet) 1 tab Q4HP PRN PO SEVERE PAIN (PS 8-10) 11/20/20 15:55 Pantoprazole Sodium (Protonix) 40 mg BID PO 11/19/20 21:00 11/23/20 08:55 Polyethylene Glycol (Miralax) 1 pkt DAILYPRN PRN PO CONSTIPATION 11/20/20 15:55 Potassium Chloride (Micro-K Extencaps) 20 meq QHS PO 11/19/20 21:00 11/22/20 20:26 Torsemide (Demadex) 20 mg BID PO 11/19/20 21:00 11/21/20 19:47 DC 11/21/20 10:12 Torsemide (Demadex) 20 mg BID@0600,1400 PO 11/22/20 06:00 11/23/20 05:30 Tramadol HCl (Ultram) 50 mg Q6H PRN PO MILD/MODERATE PAIN (PS 1-7) 11/19/20 19:45 11/22/20 20:27 Tramadol HCl (Ultram) 50 mg Q6HP PRN PO MODERATE PAIN (PS 5-7) 11/20/20 15:55 Tramadol HCl (Ultram) 100 mg Q6H PRN PO SEVERE PAIN (PS 8-10) 11/19/20 19:45 11/23/20 09:02 Trazodone HCl (Desyrel) 150 mg QHS PO 11/19/20 21:00 11/22/20 20:25 Venlafaxine HCl (Effexor Xr) 75 mg DAILY PO 11/20/20 09:00 11/23/20 08:55 Venlafaxine HCl (Effexor Xr) 150 mg QHS PO 11/19/20 21:00 11/22/20 20:23 Allergies Coded Allergies: naloxone (Verified Allergy, Unknown, sz, 10/01/20) codeine (Verified Adverse Reaction, Intermediate, CHESP PAIN, 10/01/20) ibuprofen (Verified Adverse Reaction, Intermediate, JOINT/ MUSCLE PAIN, 10/01/20) pregabalin (Verified Adverse Reaction, Intermediate, chest pain, 10/01/20) amoxicillin (Verified Adverse Reaction, Mild, vomiting and diarrhea, 10/01/20) clavulanic acid (Verified Adverse Reaction, Mild, vomiting and diarrhea, 10/01/20) erythromycin base (Verified Adverse Reaction, Mild, vomting diarrhea, 10/01/20) hydromorphone (Verified Adverse Reaction, Mild, ITCHING, 10/01/20) CAN TAKE IF BENADRYL GIVEN PRIOR Georgie Parks MD Nov 23, 2020 12:17
[2020-11-23 14:00] VITALS: BP 88/58
[2020-11-23] MEDS: POTASSIUM CHLORIDE 10 MEQ SR TABLET PO SCH (20:13)
[2020-11-23] MEDS: traZODone 50 MG TAB PO SCH (20:13)
[2020-11-23] MEDS: CYANOCOBALAMIN 500 MCG TAB PO SCH (20:14)
[2020-11-23 20:27] LABS: HEMOGLOBIN A1c 4.3 %
[2020-11-23 22:00] VITALS: BP 131/60
[2020-11-24] MEDS: LEVOTHYROXINE 88MCG TABLET (0.088 MG) PO SCH (05:06)
[2020-11-24] MEDS: TORSEMIDE 20 MG TAB PO SCH ×2 (05:07→13:25)
[2020-11-24] MEDS: traMADol 50 MG TAB PO PRN ×3 (05:07→21:03)
[2020-11-24 06:00] VITALS: BP 118/54
[2020-11-24 06:54] LABS: HEMATOCRIT 31.3 % (36.0-47.0); MEAN CORPUSCULAR HEMOGLOBIN 33.3 pg (27.0-33.0); MEAN CORPUSCULAR HGB CONC 31.9 g/dl (32.0-36.5); MEAN CORPUSCULAR VOLUME 104.3 fl (80.0-96.0); WHITE BLOOD COUNT 3.2 10^3/uL (4.0-10.0)
[2020-11-24 06:58] LABS: PLATELET COUNT, AUTOMATED 56 10^3/uL (150-450)
[2020-11-24 07:20] LABS: BLOOD UREA NITROGEN 16 MG/DL (7-18); CALCIUM LEVEL 8.1 MG/DL (8.8-10.2); CARBON DIOXIDE LEVEL 36 MEQ/L (21-32); CHLORIDE LEVEL 102 MEQ/L (98-107); CREATININE FOR GFR 0.68 MG/DL (0.55-1.30); GLOMERULAR FILTRATION RATE > 60.0 (>45); GLUCOSE, FASTING 111 MG/DL (70-100); POTASSIUM SERUM 3.4 MEQ/L (3.5-5.1); SODIUM LEVEL 140 MEQ/L (136-145)
[2020-11-24 07:46] VITALS: BP 116/55
[2020-11-24] MEDS: bisoproloL fumarate 5 MG TAB PO SCH ×2 (09:00→21:00)
[2020-11-24] MEDS: CYCLOBENZAPRINE 10MG TABLET PO SCH ×3 (10:13→21:05)
[2020-11-24] MEDS: VENLAFAXINE **XR** 75MG CAPSULE PO SCH ×2 (10:14→21:04)
[2020-11-24] MEDS: PANTOPRAZOLE 40MG TAB (PROTONIX) PO SCH ×2 (10:15→21:05)
[2020-11-24] MEDS: POTASSIUM CHLORIDE 10 MEQ SR TABLET PO SCH (10:15)
[2020-11-24] MEDS: DOCUSATE SODIUM 100MG CAPSULE PO SCH ×2 (10:16→21:05)
[2020-11-24] MEDS: GABAPENTIN 400MG CAP PO SCH ×3 (10:17→21:05)
--- NOTE | 2020-11-24 13:15 | REP ---
INDICATION: L proximal tibia pain. History of trauma. COMPARISON: Comparison radiographs November 19, 2020.. TECHNIQUE: Helical scanning is acquired and 2 mm axial images re-formatted. Coronal and sagittal MPR images are generated. FINDINGS: On soft tissue window settings, there is evidence of a moderate size joint effusion. No observable Merlos's cyst is seen. There is extensive subcutaneous edema. There is a small extraosseous fluid collection in the anterolateral surface of the proximal calf extending almost up to the knee joint level. Mild prepatellar soft tissue edema is seen. Skeletal muscle soft tissues are unremarkable. There is three compartment osteoarthritis with tibiofemoral spur and patellofemoral spurring which is well established. The tibiofemoral spurring is more pronounced laterally than medially. There is no evidence of tibial plateau fracture, patellar fracture, or distal femur fracture. There is a normal fabella. The proximal fibula and proximal tibia and distal femur appear intact. There is some diffuse osteopenia. Study is otherwise unremarkable. IMPRESSION: For there is evidence of a joint effusion. Diffuse osteopenia. Three compartment osteoarthritis. No fracture is seen. There is soft tissue edema and fluid anterolaterally the proximal calf question contusion/hematoma. <Electronically signed by Selvin Mo > 11/24/20 [id number]
--- NOTE | 2020-11-24 13:21 | IPNPDOC ---
Date Seen The patient was seen on 11/24/20. Progress Note SUBJECTIVE: No acute events overnight. Stable pain. Plan is for surgery 11/25/20 in the afternoon/evening. Denies chest pain, shortness of breath. OBJECTIVE: PHYSICAL EXAMINATION: VITAL SIGNS: See below GENERAL: Alert, comfortable, in no acute distress HEENT: Normocephalic, atraumatic, sclera anicteric, moist mucous membranes NECK: Supple, trachea midline CARDIOVASCULAR: Regular rate and rhythm, normal S1 and S2. RESPIRATORY: Clear to auscultation bilaterally with equal air entry bilaterally. No wheezing. ABDOMEN: morbidly obese, soft, nontender, nondistended, bowel sounds present. EXTREMITIES: Left lower extremity is splinted and wrapped in concepción bandages. ROM not tested. Pulses 2+ in bilateral dorsalis pedis and radial arteries. Capillary refill <2sec in bilateral lower extremities. NEUROLOGIC: Alert and oriented x3 to person, place and time. No focal deficits appreciated. Able to move toes on bilateral feet. PSYCHIATRIC: Mood and affect appropriate LABORATORY DATA: See below. IMAGING: - L Knee XR 1. Findings above suspicious for an acute nondisplaced fracture of the head of the left fibula. 2. Osteoarthritis of the left knee. - L Hip/pelvis XR 1. No fracture or dislocation of the bony pelvis or left hip. 2. Chronic compression fracture of L5 that can also be seen in the CT abdomen and pelvis on 10/02/2020. - L Ankle XR 1. Acute minimally displaced oblique fracture involving the left distal fibular metaphysis. 2. Acute minimally displaced fracture involving the left posterior malleolus. - L Tibia/Fibula XR 1. Findings above suspicious for an acute nondisplaced fracture of the head of the left fibula. 2. Acute minimally distal fracture involving the left distal fibular metaphysis. 3. Acute minimally displaced fracture involving the left posterior malleolus. - CXR 1. No acute findings. 2. Cardiomegaly, which is similar in appearance compared to the prior chest x-ray on 07/30/2020. MICROBIOLOGY: Please see below. ASSESSMENT: 65 year old female with extensive PMHx presented after acute trauma admitted for surgical evaluation of L bimalleolar fracture seen on XR. PLAN: Left bimalleolar fracture secondary to trauma -Surgery to be done 11/25/[address] Biedron. -RCRI score: Class IV risk, 3 points. -Intermediate risk for intermediate risk surgery -Risk with likely DASHA, morbid obesity but no contraindications from cardiac standpoint. -Immobilization splint in place -NWB on LLE for now -C/w pain control with Percocet, tramadol, tylenol. 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 DVT px - AC CI due to hx of bleeding. Teds, SCD DISPOSITION: Inpatient admission. Plan for OR on 11/25/20 VS, I&O, 24H, Fishbone Vital Signs/I&O Vital Signs Date Time Temp Pulse Resp B/P (MAP) Pulse Ox O2 Delivery O2 Flow Rate FiO2 11/24/20 12:43 20 11/24/20 09:30 2.0 11/24/20 09:00 65 103/47 11/24/20 07:46 98.7 93 Nasal Cannula I&O- Last 24 Hours up to 6 AM 11/24/20 06:00 Intake Total 2100 ml Output Total 1850 ml Balance 250 ml Laboratory Data 24H LABS Laboratory Tests 2 11/23/20 20:01: Estimated Mean Plasma Glucose 77, Hemoglobin A1c 4.3 11/24/20 06:27: Nucleated Red Blood Cells % (auto) 0.0, Immature Platelet Fraction 3.6, Anion Gap 2L, Glomerular Filtration Rate > 60.0, Calcium Level 8.1L CBC/BMP Laboratory Tests 11/24/20 06:27 Current Medications Current Medications Medications (Trade) Dose Ordered Sig/Radha Route PRN Reason Start Time Stop Time Status Last Admin Dose Admin Albuterol/ Ipratropium (Duoneb (Ipr 0.5mg/Alb 2.5mg)) 3 ml Q6H PRN INH SHORTNESS OF BREATH 11/19/20 19:45 11/23/20 14:52 Bisoprolol Fumarate (Zebeta) 5 mg BID PO 11/19/20 21:00 11/23/20 20:16 Cyanocobalamin (Vitamin B12) 1,000 mcg QHS PO 11/19/20 21:00 11/23/20 20:14 Cyclobenzaprine HCl (Flexeril) 10 mg TID PO 11/20/20 16:00 11/24/20 10:13 Docusate Sodium (Colace) 100 mg BID PO 11/19/20 21:00 11/24/20 10:16 Gabapentin (Neurontin) 400 mg DAILY PO 11/20/20 15:00 11/22/20 09:48 DC 11/21/20 10:13 Gabapentin (Neurontin) 400 mg DAILY@1400 PO 11/22/20 14:00 11/23/20 14:31 Gabapentin (Neurontin) 800 mg BID PO 11/19/20 21:00 11/24/20 10:17 Home Med (Med Rec Complete!) ASDIRECTED XX 11/19/20 05:10 11/19/20 05:09 DC Levothyroxine Sodium (Synthroid) 88 mcg DAILY@0600 PO 11/20/20 06:00 11/24/20 05:06 Morphine Sulfate (Morphine Sulfate Inj) 1 mg Q4H PRN IV MILD/MODERATE PAIN (PS 1-7) 11/19/20 06:40 11/19/20 17:15 DC 11/19/20 16:41 Morphine Sulfate (Morphine Sulfate Inj) 1 mg Q6HP PRN IV MILD/MODERATE PAIN (PS 1-7) 11/19/20 17:15 11/20/20 15:53 DC Morphine Sulfate (Morphine Sulfate Inj) 2 mg Q4H PRN IV SEVERE PAIN (PS 8-10) 11/19/20 06:40 11/19/20 08:54 DC Morphine Sulfate (Morphine Sulfate Inj) 2 mg Q6HP PRN IV SEVERE PAIN (PS 8-10) 11/19/20 18:00 11/19/20 19:48 DC Morphine Sulfate (Morphine Sulfate Inj) 4 mg Q30M PRN IV SEVERE PAIN (PS 8-10) 11/19/20 03:35 11/19/20 06:23 DC 11/19/20 06:22 Morphine Sulfate (Morphine Sulfate Inj) 4 mg Q4H PRN IV SEVERE PAIN (PS 8-10) 11/19/20 10:40 11/19/20 17:15 DC 11/19/20 09:43 Ondansetron HCl (ZOFRAN INJection) 4 mg Q6H PRN IV NAUSEA 11/19/20 06:40 Oxycodone/ Acetaminophen (Percocet 5mg/ 325mg Tablet) 1 tab Q4HP PRN PO SEVERE PAIN (PS 8-10) 11/20/20 15:55 Pantoprazole Sodium (Protonix) 40 mg BID PO 11/19/20 21:00 11/24/20 10:15 Polyethylene Glycol (Miralax) 1 pkt DAILYPRN PRN PO CONSTIPATION 11/20/20 15:55 Potassium Chloride (Micro-K Extencaps) 20 meq QAM PO 11/24/20 09:00 11/24/20 10:15 Potassium Chloride (Micro-K Extencaps) 20 meq QHS PO 11/19/20 21:00 11/24/20 07:57 DC 11/23/20 20:13 Torsemide (Demadex) 20 mg BID PO 11/19/20 21:00 11/21/20 19:47 DC 11/21/20 10:12 Torsemide (Demadex) 20 mg BID@0600,1400 PO 11/22/20 06:00 11/24/20 05:07 Tramadol HCl (Ultram) 50 mg Q6H PRN PO MILD/MODERATE PAIN (PS 1-7) 11/19/20 19:45 11/24/20 12:59 DC 11/22/20 20:27 Tramadol HCl (Ultram) 50 mg Q6HP PRN PO MODERATE PAIN (PS 5-7) 11/20/20 15:55 Tramadol HCl (Ultram) 100 mg Q6H PRN PO SEVERE PAIN (PS 8-10) 11/19/20 19:45 11/24/20 12:13 Trazodone HCl (Desyrel) 150 mg QHS PO 11/19/20 21:00 11/23/20 20:13 Venlafaxine HCl (Effexor Xr) 75 mg DAILY PO 11/20/20 09:00 11/24/20 10:14 Venlafaxine HCl (Effexor Xr) 150 mg QHS PO 11/19/20 21:00 11/23/20 20:14 Allergies Coded Allergies: naloxone (Verified Allergy, Unknown, sz, 10/01/20) codeine (Verified Adverse Reaction, Intermediate, CHESP PAIN, 10/01/20) ibuprofen (Verified Adverse Reaction, Intermediate, JOINT/ MUSCLE PAIN, 10/01/20) pregabalin (Verified Adverse Reaction, Intermediate, chest pain, 10/01/20) amoxicillin (Verified Adverse Reaction, Mild, vomiting and diarrhea, 10/01/20) clavulanic acid (Verified Adverse Reaction, Mild, vomiting and diarrhea, 10/01/20) erythromycin base (Verified Adverse Reaction, Mild, vomting diarrhea, 10/01/20) hydromorphone (Verified Adverse Reaction, Mild, ITCHING, 10/01/20) CAN TAKE IF BENADRYL GIVEN PRIOR Georgie Parks MD Nov 24, 2020 13:21
[2020-11-24 14:09] VITALS: BP 121/57
[2020-11-24] MEDS: traZODone 50 MG TAB PO SCH (21:04)
[2020-11-24] MEDS: CYANOCOBALAMIN 500 MCG TAB PO SCH (21:05)
[2020-11-24 22:00] VITALS: BP 94/41
[2020-11-25 06:00] VITALS: BP 94/45
[2020-11-25] MEDS: TORSEMIDE 20 MG TAB PO SCH ×2 (06:00→14:00)
[2020-11-25] MEDS: LEVOTHYROXINE 88MCG TABLET (0.088 MG) PO SCH (06:32)
[2020-11-25] MEDS: traMADol 50 MG TAB PO PRN (06:37)
[2020-11-25 06:59] LABS: HEMATOCRIT 30.8 % (36.0-47.0); HEMOGLOBIN 10.1 g/dl (12.0-15.5); MEAN CORPUSCULAR HEMOGLOBIN 34.2 pg (27.0-33.0); MEAN CORPUSCULAR HGB CONC 32.8 g/dl (32.0-36.5); MEAN CORPUSCULAR VOLUME 104.4 fl (80.0-96.0); RED BLOOD COUNT 2.95 10^6/uL (4.00-5.40); WHITE BLOOD COUNT 2.6 10^3/uL (4.0-10.0)
[2020-11-25 07:03] LABS: PLATELET COUNT, AUTOMATED 52 10^3/uL (150-450)
[2020-11-25 07:15] LABS: BLOOD UREA NITROGEN 17 MG/DL (7-18); CALCIUM LEVEL 8.4 MG/DL (8.8-10.2); CARBON DIOXIDE LEVEL 33 MEQ/L (21-32); CHLORIDE LEVEL 103 MEQ/L (98-107); CREATININE FOR GFR 0.61 MG/DL (0.55-1.30); GLOMERULAR FILTRATION RATE > 60.0 (>45); GLUCOSE, FASTING 80 MG/DL (70-100); POTASSIUM SERUM 3.4 MEQ/L (3.5-5.1); SODIUM LEVEL 140 MEQ/L (136-145)
[2020-11-25] MEDS: PANTOPRAZOLE 40MG TAB (PROTONIX) PO SCH ×2 (09:00→21:00)
[2020-11-25] MEDS: GABAPENTIN 400MG CAP PO SCH ×3 (09:00→21:00)
[2020-11-25] MEDS: DOCUSATE SODIUM 100MG CAPSULE PO SCH ×2 (09:00→21:00)
[2020-11-25] MEDS: VENLAFAXINE **XR** 75MG CAPSULE PO SCH ×2 (09:00→21:00)
[2020-11-25] MEDS: CYCLOBENZAPRINE 10MG TABLET PO SCH ×3 (09:51→21:00)
[2020-11-25] MEDS: POTASSIUM CHLORIDE 10 MEQ SR TABLET PO SCH (09:51)
[2020-11-25] MEDS: bisoproloL fumarate 5 MG TAB PO SCH ×2 (09:51→21:00)
--- NOTE | 2020-11-25 11:46 | IPNPDOC ---
Text Note Date of Service The patient was seen on 11/25/20. NOTE SUBJECTIVE: -No acute events overnight. Stable pain complaints. -NPO for surgery this afternoon/evening. -Denies chest pain, shortness of breath. OBJECTIVE: PHYSICAL EXAMINATION: VITAL SIGNS: See below GENERAL: Alert, comfortable, in no acute distress, morbidly obese HEENT: Normocephalic, atraumatic, sclera anicteric, moist mucous membranes NECK: Supple, trachea midline CARDIOVASCULAR: Regular rate and rhythm, normal S1 and S2. RESPIRATORY: Clear to auscultation bilaterally with equal air entry bilaterally. No wheezing. ABDOMEN: morbidly obese, soft, nontender, nondistended, bowel sounds present. EXTREMITIES: Left lower extremity is splinted and wrapped in concepción bandages. ROM not tested. Pulses 2+ in bilateral dorsalis pedis and radial arteries. Capillary refill <2sec in bilateral lower extremities. NEUROLOGIC: Alert and oriented x3 to person, place and time. No focal deficits appreciated. Able to move toes on bilateral feet. PSYCHIATRIC: Mood and affect appropriate LABORATORY DATA: reviewed IMAGING: - L Knee XR 1. Findings above suspicious for an acute nondisplaced fracture of the head of the left fibula. 2. Osteoarthritis of the left knee. - L Hip/pelvis XR 1. No fracture or dislocation of the bony pelvis or left hip. 2. Chronic compression fracture of L5 that can also be seen in the CT abdomen and pelvis on 10/02/2020. - L Ankle XR 1. Acute minimally displaced oblique fracture involving the left distal fibular metaphysis. 2. Acute minimally displaced fracture involving the left posterior malleolus. - L Tibia/Fibula XR 1. Findings above suspicious for an acute nondisplaced fracture of the head of the left fibula. 2. Acute minimally distal fracture involving the left distal fibular metaphysis. 3. Acute minimally displaced fracture involving the left posterior malleolus. - CXR 1. No acute findings. 2. Cardiomegaly, which is similar in appearance compared to the prior chest x-ray on 07/30/2020. MICROBIOLOGY: Please see below. ASSESSMENT: 65 year old female with extensive PMHx presented after acute trauma admitted for surgical evaluation of L bimalleolar fracture seen on XR. PLAN: Left bimalleolar fracture secondary to trauma -Surgery to be done 11/25/[address] Johnson. -RCRI score: Class IV risk, 3 points. -Intermediate risk for intermediate risk surgery -Risk with likely DASHA, morbid obesity but no contraindications from cardiac standpoint. -Immobilization splint in place -NWB on LLE for now -C/w pain control with Percocet, tramadol, tylenol. 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 Thrombocytopenia: chronic -stable Anemia: chronic -stable Leukopenia: No s/s of potential infection, chronic -will monitor closely with daily CBC DVT px - AC CI due to hx of bleeding. Teds, SCD DISPOSITION: Inpatient admission. Plan for OR on 11/25/20 VS,Fishbone, I+O VS, Fishbone, I+O Laboratory Tests 11/25/20 06:25 Vital Signs Date Time Temp Pulse Resp B/P (MAP) Pulse Ox O2 Delivery O2 Flow Rate FiO2 11/25/20 06:37 18 Nasal Cannula 2.0 11/25/20 06:00 98.4 68 94/45 (96) 91 I&O- Last 24 Hours up to 6 AM 11/25/20 06:00 Intake Total 600 ml Output Total 1400 ml Balance -800 ml MONSTER ALEJO MD Nov 25, 2020 08:24
[2020-11-25 14:00] VITALS: BP 120/71
[2020-11-25] MEDS ORDERED: LIDOCAINE 2% 100MG/5ML SDV (FOR ANES.) As Ordered ONE (16:22)
[2020-11-25] MEDS ORDERED: ROCURONIUM BROMIDE 50 MG/5 ML VIAL As Ordered ONE (16:22)
[2020-11-25] MEDS ORDERED: propofoL 200 MG/20 ML VIAL As Ordered ONE (16:22)
[2020-11-25] MEDS ORDERED: fentaNYL 250 MCG/5 ML INJECTION (J3010) As Ordered ONE (16:23)
[2020-11-25] MEDS ORDERED: MIDAZOLAM INJ 2MG/2ML VIAL (J2250 PER 1MG) As Ordered ONE (16:26)
[2020-11-25] MEDS ORDERED: ceFAZolin 2 GM/D5W 50 ML IV BAG (J0690 PER 500MG) As Ordered ONE (17:02)
[2020-11-25] MEDS ORDERED: ceFAZolin 1GM VIAL (J0690 PER 500MG) As Ordered ONE (17:03)
[2020-11-25] MEDS ORDERED: BUPIVACAINE HCL 0.5% 30 ML VIAL As Ordered ONE (17:03)
[2020-11-25] MEDS ORDERED: SUGAMMADEX SODIUM 500 MG/5 ML VIAL (BRIDION) As Ordered ONE (17:39)
[2020-11-25] MEDS ORDERED: ACETAMINOPHEN 1000MG 100ML IV BTL (OFIRMEV) (J0131 PER 10MG) As Ordered ONE (17:39)
[2020-11-25] MEDS ORDERED: ONDANSETRON 4MG/2ML VIAL As Ordered ONE (17:39)
[2020-11-25] MEDS ORDERED: dexameTHASONE 4 MG/ML 1ML VIAL (J1100 PER 1MG) As Ordered ONE (17:39)
[2020-11-25] MEDS ORDERED: HYDROmorphone HCL 2 MG/ML 1ML VIAL (J1170) As Ordered ONE (19:22)
[2020-11-25] MEDS ORDERED: DESFLURANE 240 ML INHALANT As Ordered ONE (20:08)
[2020-11-25] MEDS: traZODone 50 MG TAB PO SCH (21:00)
[2020-11-25] MEDS: CYANOCOBALAMIN 500 MCG TAB PO SCH (21:00)
[2020-11-25] MEDS ORDERED: fentaNYL 100 MCG/2 ML INJECTION (J3010) IV PRN (21:10)
[2020-11-25] MEDS ORDERED: LR 1,000 ML IV SCH (21:10)
[2020-11-25] MEDS ORDERED: ONDANSETRON 4MG/2ML VIAL IV PRN (21:10)
[2020-11-25 22:30] VITALS: BP 116/67
[2020-11-25] MEDS ORDERED: ONDANSETRON 4 MG TAB PO PRN (22:55)
[2020-11-25 23:00] VITALS: BP 115/67
[2020-11-26] VITALS (9 sets, daily range): BP systolic 102–127; BP diastolic 45–74
[2020-11-26] MEDS: traMADol 50 MG TAB PO PRN (04:08)
[2020-11-26] MEDS: TORSEMIDE 20 MG TAB PO SCH ×2 (05:29→14:00)
[2020-11-26] MEDS: LEVOTHYROXINE 88MCG TABLET (0.088 MG) PO SCH (05:29)
--- NOTE | 2020-11-26 06:38 | REP ---
INDICATION: LEFT ANKLE, INTRAMED RODDING FIBULA. COMPARISON: None. TECHNIQUE: Intraoperative fluoroscopic imaging using portable C-arm technique. FINDINGS: Patient is status post satisfactory open reduction and fixation with intramedullary maryse through the fibula and associated stabilizing screws at the ankle. Total fluoroscopic time 324.7 seconds. IMPRESSION: Satisfactory open reduction and fixation. <Electronically signed by Jamar Paredes > 11/26/20 0634
[2020-11-26 08:11] LABS: HEMATOCRIT 33.8 % (36.0-47.0); HEMOGLOBIN 10.8 g/dl (12.0-15.5); MEAN CORPUSCULAR VOLUME 103.4 fl (80.0-96.0); RED BLOOD COUNT 3.27 10^6/uL (4.00-5.40); WHITE BLOOD COUNT 3.6 10^3/uL (4.0-10.0)
[2020-11-26 08:14] LABS: PLATELET COUNT, AUTOMATED 60 10^3/uL (150-450)
[2020-11-26 08:51] LABS: BLOOD UREA NITROGEN 19 MG/DL (7-18); CALCIUM LEVEL 8.5 MG/DL (8.8-10.2); CARBON DIOXIDE LEVEL 33 MEQ/L (21-32); CHLORIDE LEVEL 101 MEQ/L (98-107); CREATININE FOR GFR 0.67 MG/DL (0.55-1.30); GLOMERULAR FILTRATION RATE > 60.0 (>45); GLUCOSE, FASTING 115 MG/DL (70-100); POTASSIUM SERUM 4.1 MEQ/L (3.5-5.1); SODIUM LEVEL 138 MEQ/L (136-145)
[2020-11-26] MEDS: bisoproloL fumarate 5 MG TAB PO SCH ×2 (09:00→21:00)
[2020-11-26] MEDS ORDERED: ASPIRIN 81MG ENTERIC TABLET PO SCH (09:00)
[2020-11-26] MEDS: PERCOCET 5MG/325MG TAB PO PRN ×2 (09:14→21:20)
[2020-11-26] MEDS: GABAPENTIN 400MG CAP PO SCH ×3 (09:14→21:25)
--- NOTE | 2020-11-26 09:15 | RO ---
OPERATIVE NOTE DATE OF OPERATION: 11/25/2020 PREOPERATIVE DIAGNOSIS: Left ankle fracture with posterior malleolus fracture and a spiral distal fibular fracture with syndesmotic destruction. POSTOPERATIVE DIAGNOSIS: Left ankle fracture with posterior malleolus fracture and a spiral distal fibular fracture with syndesmotic destruction. NAME OF OPERATION: Left ankle open reduction, internal fixation with percutaneous technique. SURGEON: James Johnson MD HOSPICE MANAGER: Oc Zayas MD SUPERVISING ATTENDING: James Johnson MD FINDINGS: 1. Distal fibular spiral fracture. 2. Posterior malleolus fracture and syndesmotic destruction. INDICATIONS: This is a 65-year-old female with multiple medical comorbidities who fell at [facility] on the November. The patient states that she tripped over a sign and twisted her left ankle. Radiographs revealed a fracture to include the posterior malleolus as well as the distal fibula. The patient was splinted in the emergency department at [facility] and admitted to the hospitalist service. She was indicated for a left ankle open reduction, internal fixation with percutaneous technique using a fibular nail and a posterior malleolar fixation as well as a tricortical syndesmotic fixation for the aforementioned injury. We would allow one week for soft tissue rest prior to intervention, which was today, 25 November 2020. The patient has no prior history of pain in the left ankle and she was a community ambulator with the assistive device of a walker. PAST MEDICAL HISTORY: 1. Alpha-1 antitrypsin deficiency. 2. Chronic obstructive pulmonary disease (COPD). 3. Liver cirrhosis. 4. Portal hypertension. 5. Gastric antral ectasia. 6. History of gastrointestinal bleed. 7. Bilateral sciatica. 8. Right cerebrovascular accident. For additional medical comorbidities, please see initial consult note. PAST SURGICAL HISTORY: 1. Cholecystectomy. 2. Hemorrhoidectomy. 3. Appendectomy. 4. Tonsillectomy. 5. Upper endoscopy. 6. Midline insertions. 7. Adenoidectomy. 6. (C) section. 7. Hysterectomy. 8. Left knee arthroscopy. 9. Incarcerated abdominal hernia. ANESTHESIA: General endotracheal anesthesia (GETA). TOURNIQUET TIME: None used. ESTIMATED BLOOD LOSS: 50 mL. IV FLUIDS: Please see anesthesia report. IV ANTIBIOTICS: 3 grams Ancef. IMPLANTS: Arthrex and Synthes. CULTURES: None. SPECIMENS: None. PROCEDURE IN DETAIL: The patient was met in the preoperative holding area where the patient's operative extremity was signed. The patient's consent was confirmed to be correct. The patient's identity was confirmed to be correct. The patient was then transported to the operating theater where she was placed in the lateral decubitus position on a radiolucent flat-top surgical bed. The safety straps secured the patient to the bed. All bony prominences were well padded and the contralateral lower extremity had an SCD placed. A timeout was called to confirm the correct patient, correct operative extremity and correct consent. All staff was in agreement. The patient was then draped in the usual sterile fashion. We began the procedure by obtaining fluoroscopic imaging of the patient's left ankle to ensure that we could obtain the appropriate radiographs. We then turned our attention to the posterior malleolus. I made a posterior percutaneous incision utilizing the posterolateral interval between the posterior aspect of the fibula and the lateral aspect of the patient's Achilles tendon. After making a percutaneous incision, I then made an initial percutaneous incision about the anteromedial aspect of the patient's distal tibia and used a [employer] bone reduction clamp to reduce the posterior malleolus into position and hold it with the clamps for provisional fixation. I then placed three thin wires about the posterior malleolus to one just on the lateral edge on the distal fibula and one 2 cm medial to that just proximal to the joint line, which would later be used for placement of the 4.0 partially-threaded cannulated self-tapping, self-drilling screw. I placed an additional thin wire proximal to these two screws for additional fixation. In all, we placed three 4.0 mm partially-threaded cannulated cancellous screws into position in order to lie by design in order to bring the posterior malleolus into the appropriate position and secure it with compression. At this point in time, I then turned my attention to the distal fibular fracture. Using longitudinal traction and a point to point bone reducing clamp I was able to obtain provisional reduction of the distal fibular spiral fracture. I then placed a guidewire into position, which was center-center on the AP and lateral views and just medial to the tip of the distal fibula on the AP view. Once this was placed, I then sequentially reamed to a 3.8 mm reamer through the fracture and proximal past the fracture site. I then placed a 3.8 mm fibular nail along the previously reamed corridor and within the medullary canal of the fibula. Once this was in position, I dilated the proximal compression device which secured the nail proximally. I then secured additionally with two interlocking screws and obtained fluoroscopic views demonstrating worship of fibular length and provisional reduction. At this point in time, we felt the need for syndesmotic screw fixation; one for syndesmotic provisional fixation and two due to the patient's 400 pounds of weight we felt increasing the structural integrity of the construct would behoove the patient. Noticing that the fibular nail appeared to translate in the lateral to medial position and planning the tricortical syndesmotic screws in which we intended to medialize the distal fibula we placed a A-to-P locking screw just medial to the distal aspect of the fibular nail which allowed us to with more precision translate the distal fibula into the correct position. We then placed the A-to-P locking screw prior to placement of our tricortical syndesmotic screws for placement of the locking screw which allowed us to translate the distal to the fragments to tricortical syndesmotic screws. We then placed the aforementioned syndesmotic screws in position and we were able to translate the distal fibula into the correct position stabilizing the talus into mortise. At this point in time, we removed the gig and obtained final fluoroscopic imaging to demonstrate that we were satisfied with our fracture reduction as well as our implant placement. We copiously irrigated all the surgical sites. We then closed the dermal layer of all the percutaneous incisions using 2-0 Vicryl and closed off each of the percutaneous incisions using interrupted 3-0 nylon suture. I placed Xeroform on each of the surgical incisions followed by 4x4 gauze, Webril, and the patient's left lower extremity was placed in an L and U splint. The patient was then extubated without complication and transported to the postanesthesia care unit. The patient will be nonweightbearing to the left lower extremity for 6-8 weeks. The patient will follow up with me at the [facility] for a 2-week postoperative wound check. At that point in time, she will be taken out of her splint and transitioned into a CAM boot. She will comply with the left ankle open reduction, internal fixation rehabilitative protocol for ankle range of motion at that time. The patient will be prescribed pain medications per the hospitalist service. SORAYA
[2020-11-26] MEDS: VENLAFAXINE **XR** 75MG CAPSULE PO SCH ×2 (09:16→21:25)
[2020-11-26] MEDS: DOCUSATE SODIUM 100MG CAPSULE PO SCH ×2 (09:16→21:25)
[2020-11-26] MEDS: POTASSIUM CHLORIDE 10 MEQ SR TABLET PO SCH (09:16)
[2020-11-26] MEDS: PANTOPRAZOLE 40MG TAB (PROTONIX) PO SCH ×2 (09:16→21:25)
[2020-11-26] MEDS: CYCLOBENZAPRINE 10MG TABLET PO SCH ×3 (09:16→21:25)
--- NOTE | 2020-11-26 10:14 | IPNPDOC ---
Text Note Date of Service The patient was seen on 11/26/20. NOTE SUBJECTIVE: -No acute events overnight. Stable pain complaints. -had Left ankle open reduction, internal fixation with percutaneous technique yesterday -Denies chest pain, shortness of breath. OBJECTIVE: VITAL SIGNS: See below GENERAL: Alert, comfortable, in no acute distress, morbidly obese HEENT: Normocephalic, atraumatic, sclera anicteric, moist mucous membranes NECK: Supple, trachea midline CARDIOVASCULAR: Regular rate and rhythm, normal S1 and S2. RESPIRATORY: Clear to auscultation bilaterally with equal air entry bilaterally. No wheezing. ABDOMEN: morbidly obese, soft, nontender, nondistended, bowel sounds present. EXTREMITIES: Left lower extremity in boot and wrapped in concepción bandages. ROM not tested. Pulses 2+ in bilateral dorsalis pedis and radial arteries. Capillary refill <2sec in bilateral lower extremities. NEUROLOGIC: Alert and oriented x3 to person, place and time. No focal deficits appreciated. Able to move toes on bilateral feet. PSYCHIATRIC: Mood and affect appropriate LABORATORY DATA: reviewed IMAGING: - L Knee XR 1. Findings above suspicious for an acute nondisplaced fracture of the head of the left fibula. 2. Osteoarthritis of the left knee. - L Hip/pelvis XR 1. No fracture or dislocation of the bony pelvis or left hip. 2. Chronic compression fracture of L5 that can also be seen in the CT abdomen and pelvis on 10/02/2020. - L Ankle XR 1. Acute minimally displaced oblique fracture involving the left distal fibular metaphysis. 2. Acute minimally displaced fracture involving the left posterior malleolus. - L Tibia/Fibula XR 1. Findings above suspicious for an acute nondisplaced fracture of the head of the left fibula. 2. Acute minimally distal fracture involving the left distal fibular metaphysis. 3. Acute minimally displaced fracture involving the left posterior malleolus. - CXR 1. No acute findings. 2. Cardiomegaly, which is similar in appearance compared to the prior chest x-ray on 07/30/2020. MICROBIOLOGY: Please see below. ASSESSMENT: 65 year old female with extensive PMHx presented after acute trauma admitted for surgical evaluation of L bimalleolar fracture seen on XR. PLAN: Left bimalleolar fracture secondary to trauma -POD1 s/p Left ankle open reduction, internal fixation with percutaneous technique by Dr. Johnson. -NWB on LLE for 6-8w per surgery -C/w pain control with Percocet, tramadol, tylenol. 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 Thrombocytopenia: chronic -stable Anemia: chronic -stable Leukopenia: No s/s of potential infection, chronic -will monitor closely with daily CBC DVT px -Teds and SCDs DISPOSITION: Inpatient admission. PT/OT ongoing VS,Fishbone, I+O VS, Fishbone, I+O Laboratory Tests 11/26/20 07:49 Vital Signs Date Time Temp Pulse Resp B/P (MAP) Pulse Ox O2 Delivery O2 Flow Rate FiO2 11/26/20 10:09 16 11/26/20 09:00 64 110/47 11/26/20 06:41 3.0 11/26/20 06:00 98.2 92 Nasal Cannula I&O- Last 24 Hours up to 6 AM 11/26/20 06:00 Intake Total 1600 ml Output Total 100 ml Balance 1500 ml MONSTER ALEJO MD Nov 26, 2020 10:14
[2020-11-26] MEDS: CYANOCOBALAMIN 500 MCG TAB PO SCH (21:20)
[2020-11-26] MEDS: traZODone 50 MG TAB PO SCH (21:25)
[2020-11-27] MEDS: PERCOCET 5MG/325MG TAB PO PRN ×3 (04:22→20:58)
[2020-11-27] MEDS: LEVOTHYROXINE 88MCG TABLET (0.088 MG) PO SCH (05:44)
[2020-11-27] MEDS: TORSEMIDE 20 MG TAB PO SCH ×2 (05:45→14:00)
[2020-11-27 06:00] VITALS: BP 110/52
[2020-11-27] MEDS: bisoproloL fumarate 5 MG TAB PO SCH ×2 (09:00→20:56)
[2020-11-27] MEDS: GABAPENTIN 400MG CAP PO SCH ×3 (09:19→20:54)
[2020-11-27] MEDS: DOCUSATE SODIUM 100MG CAPSULE PO SCH ×2 (09:19→20:54)
[2020-11-27] MEDS: CYCLOBENZAPRINE 10MG TABLET PO SCH ×3 (09:20→20:54)
[2020-11-27] MEDS: VENLAFAXINE **XR** 75MG CAPSULE PO SCH ×2 (09:20→20:54)
[2020-11-27] MEDS: PANTOPRAZOLE 40MG TAB (PROTONIX) PO SCH ×2 (09:22→20:57)
[2020-11-27] MEDS: POTASSIUM CHLORIDE 10 MEQ SR TABLET PO SCH (09:22)
--- NOTE | 2020-11-27 10:36 | IPNPDOC ---
Text Note Date of Service The patient was seen on 11/27/20. NOTE SUBJECTIVE: -No acute events overnight. Stable pain complaints. -Denies chest pain, shortness of breath. -Discussed that I would really like her to participate with PT so that we can work on getting her home OBJECTIVE: VITAL SIGNS: See below GENERAL: Alert, comfortable, in no acute distress, morbidly obese HEENT: Normocephalic, atraumatic, sclera anicteric, moist mucous membranes NECK: Supple, trachea midline CARDIOVASCULAR: Regular rate and rhythm, normal S1 and S2. RESPIRATORY: Clear to auscultation bilaterally with equal air entry bilaterally. No wheezing. ABDOMEN: morbidly obese, soft, nontender, nondistended, bowel sounds present. EXTREMITIES: Left lower extremity in boot and wrapped in concepción bandages. ROM not tested. Pulses 2+ in bilateral dorsalis pedis and radial arteries. Capillary refill <2sec in bilateral lower extremities. NEUROLOGIC: Alert and oriented x3 to person, place and time. No focal deficits appreciated. Able to move toes on bilateral feet. PSYCHIATRIC: Mood and affect appropriate LABORATORY DATA: reviewed IMAGING: - L Knee XR 1. Findings above suspicious for an acute nondisplaced fracture of the head of the left fibula. 2. Osteoarthritis of the left knee. - L Hip/pelvis XR 1. No fracture or dislocation of the bony pelvis or left hip. 2. Chronic compression fracture of L5 that can also be seen in the CT abdomen and pelvis on 10/02/2020. - L Ankle XR 1. Acute minimally displaced oblique fracture involving the left distal fibular metaphysis. 2. Acute minimally displaced fracture involving the left posterior malleolus. - L Tibia/Fibula XR 1. Findings above suspicious for an acute nondisplaced fracture of the head of the left fibula. 2. Acute minimally distal fracture involving the left distal fibular metaphysis. 3. Acute minimally displaced fracture involving the left posterior malleolus. - CXR 1. No acute findings. 2. Cardiomegaly, which is similar in appearance compared to the prior chest x-ray on 07/30/2020. MICROBIOLOGY: Please see below. ASSESSMENT: 65 year old female with extensive PMHx presented after acute trauma admitted for surgical evaluation of L bimalleolar fracture seen on XR. PLAN: Left bimalleolar fracture secondary to trauma -POD2 s/p Left ankle open reduction, internal fixation with percutaneous techn ique by Dr. Johnson. -NWB on LLE for 6-8w per surgery -C/w pain control with Percocet, tramadol, tylenol. 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 Thrombocytopenia: chronic -stable Anemia: chronic -stable Leukopenia: No s/s of potential infection, chronic -will monitor closely with daily CBC DVT px -Teds and SCDs DISPOSITION: Inpatient admission. PT/OT ongoing, otherwise medically cleared for discharge. VS,Fishbone, I+O VS, Fishbone, I+O Vital Signs Date Time Temp Pulse Resp B/P (MAP) Pulse Ox O2 Delivery O2 Flow Rate FiO2 11/27/20 09:00 62 110/51 11/27/20 06:00 96.6 20 92 Nasal Cannula 30.0 I&O- Last 24 Hours up to 6 AM 11/27/20 05:59 Intake Total 1240 ml Output Total 500 ml Balance 740 ml MONSTER ALEJO MD Nov 27, 2020 10:36
[2020-11-27 11:36] LABS: HEMATOCRIT 31.1 % (36.0-47.0); HEMOGLOBIN 9.8 g/dl (12.0-15.5); MEAN CORPUSCULAR HEMOGLOBIN 33.1 pg (27.0-33.0); MEAN CORPUSCULAR HGB CONC 31.5 g/dl (32.0-36.5); MEAN CORPUSCULAR VOLUME 105.1 fl (80.0-96.0); RED BLOOD COUNT 2.96 10^6/uL (4.00-5.40); WHITE BLOOD COUNT 3.1 10^3/uL (4.0-10.0)
[2020-11-27 11:38] LABS: PLATELET COUNT, AUTOMATED 24 10^3/uL (150-450)
[2020-11-27 11:57] LABS: BLOOD UREA NITROGEN 21 MG/DL (7-18); CALCIUM LEVEL 8.4 MG/DL (8.8-10.2); CARBON DIOXIDE LEVEL 32 MEQ/L (21-32); CHLORIDE LEVEL 105 MEQ/L (98-107); CREATININE FOR GFR 0.64 MG/DL (0.55-1.30); GLOMERULAR FILTRATION RATE > 60.0 (>45); GLUCOSE, FASTING 126 MG/DL (70-100); POTASSIUM SERUM 3.7 MEQ/L (3.5-5.1); SODIUM LEVEL 142 MEQ/L (136-145)
[2020-11-27] MEDS: traMADol 50 MG TAB PO PRN ×2 (14:06→20:58)
[2020-11-27 18:00] VITALS: BP 101/48
[2020-11-27] MEDS: traZODone 50 MG TAB PO SCH (20:57)
[2020-11-27] MEDS: CYANOCOBALAMIN 500 MCG TAB PO SCH (20:57)
[2020-11-28] MEDS ORDERED: MORPHINE 4 MG/ML 1ML VIAL/SYRINGE (J2270) IV ONE (00:50)
[2020-11-28] MEDS: traMADol 50 MG TAB PO PRN ×2 (05:50→20:59)
[2020-11-28] MEDS: LEVOTHYROXINE 88MCG TABLET (0.088 MG) PO SCH (05:51)
[2020-11-28] MEDS: MIRALAX *UNIT DOSE* 17GM PACKET PO PRN (05:51)
[2020-11-28] MEDS: TORSEMIDE 20 MG TAB PO SCH ×2 (05:52→13:39)
[2020-11-28 06:27] VITALS: BP 111/49
[2020-11-28] MEDS: bisoproloL fumarate 5 MG TAB PO SCH ×2 (08:32→21:00)
[2020-11-28] MEDS: PANTOPRAZOLE 40MG TAB (PROTONIX) PO SCH ×2 (08:33→21:00)
[2020-11-28] MEDS: POTASSIUM CHLORIDE 10 MEQ SR TABLET PO SCH (08:33)
[2020-11-28] MEDS: DOCUSATE SODIUM 100MG CAPSULE PO SCH ×2 (08:33→20:58)
[2020-11-28] MEDS: GABAPENTIN 400MG CAP PO SCH ×3 (08:33→21:00)
[2020-11-28] MEDS: VENLAFAXINE **XR** 75MG CAPSULE PO SCH ×2 (08:33→21:00)
[2020-11-28] MEDS: CYCLOBENZAPRINE 10MG TABLET PO SCH ×3 (08:33→20:58)
[2020-11-28 09:16] LABS: BLOOD UREA NITROGEN 16 MG/DL (7-18); CALCIUM LEVEL 8.8 MG/DL (8.8-10.2); CARBON DIOXIDE LEVEL 34 MEQ/L (21-32); CHLORIDE LEVEL 103 MEQ/L (98-107); CREATININE FOR GFR 0.49 MG/DL (0.55-1.30); GLOMERULAR FILTRATION RATE > 60.0 (>45); GLUCOSE, FASTING 81 MG/DL (70-100); POTASSIUM SERUM 3.5 MEQ/L (3.5-5.1); SODIUM LEVEL 141 MEQ/L (136-145)
[2020-11-28 12:40] LABS: HEMATOCRIT 30.8 % (36.0-47.0); HEMOGLOBIN 9.8 g/dl (12.0-15.5); MEAN CORPUSCULAR HEMOGLOBIN 33.3 pg (27.0-33.0); MEAN CORPUSCULAR HGB CONC 31.8 g/dl (32.0-36.5); MEAN CORPUSCULAR VOLUME 104.8 fl (80.0-96.0); RED BLOOD COUNT 2.94 10^6/uL (4.00-5.40); WHITE BLOOD COUNT 2.6 10^3/uL (4.0-10.0)
[2020-11-28 12:41] LABS: PLATELET COUNT, AUTOMATED 58 10^3/uL (150-450)
[2020-11-28] MEDS: traZODone 50 MG TAB PO SCH (20:58)
[2020-11-28] MEDS: CYANOCOBALAMIN 500 MCG TAB PO SCH (21:00)
[2020-11-29] MEDS: LEVOTHYROXINE 88MCG TABLET (0.088 MG) PO SCH (05:32)
[2020-11-29] MEDS: traMADol 50 MG TAB PO PRN ×2 (05:35→17:23)
[2020-11-29] MEDS: MIRALAX *UNIT DOSE* 17GM PACKET PO PRN (05:35)
[2020-11-29] MEDS: TORSEMIDE 20 MG TAB PO SCH ×2 (05:36→13:52)
[2020-11-29 05:39] VITALS: BP 105/45
[2020-11-29 08:29] LABS: HEMATOCRIT 30.3 % (36.0-47.0); HEMOGLOBIN 9.2 g/dl (12.0-15.5); MEAN CORPUSCULAR HEMOGLOBIN 33.3 pg (27.0-33.0); MEAN CORPUSCULAR HGB CONC 30.4 g/dl (32.0-36.5); MEAN CORPUSCULAR VOLUME 109.8 fl (80.0-96.0); RED BLOOD COUNT 2.76 10^6/uL (4.00-5.40)
[2020-11-29 08:30] LABS: PLATELET COUNT, AUTOMATED 52 10^3/uL (150-450)
[2020-11-29] MEDS: bisoproloL fumarate 5 MG TAB PO SCH ×2 (09:00→21:00)
[2020-11-29 09:18] LABS: BLOOD UREA NITROGEN 15 MG/DL (7-18); CALCIUM LEVEL 8.2 MG/DL (8.8-10.2); CARBON DIOXIDE LEVEL 31 MEQ/L (21-32); CHLORIDE LEVEL 105 MEQ/L (98-107); CREATININE FOR GFR 0.48 MG/DL (0.55-1.30); GLOMERULAR FILTRATION RATE > 60.0 (>45); GLUCOSE, FASTING 73 MG/DL (70-100); POTASSIUM SERUM 3.4 MEQ/L (3.5-5.1); SODIUM LEVEL 143 MEQ/L (136-145)
[2020-11-29] MEDS: CYCLOBENZAPRINE 10MG TABLET PO SCH ×3 (09:39→20:57)
[2020-11-29] MEDS: PANTOPRAZOLE 40MG TAB (PROTONIX) PO SCH ×2 (09:40→20:57)
[2020-11-29] MEDS: GABAPENTIN 400MG CAP PO SCH ×3 (09:40→20:56)
[2020-11-29] MEDS: DOCUSATE SODIUM 100MG CAPSULE PO SCH ×2 (09:41→20:56)
[2020-11-29] MEDS: VENLAFAXINE **XR** 75MG CAPSULE PO SCH ×2 (09:41→20:56)
[2020-11-29] MEDS: POTASSIUM CHLORIDE 10 MEQ SR TABLET PO SCH (09:41)
[2020-11-29] MEDS: CYANOCOBALAMIN 500 MCG TAB PO SCH (20:55)
[2020-11-29] MEDS: traZODone 50 MG TAB PO SCH (20:55)
[2020-11-30] MEDS: MIRALAX *UNIT DOSE* 17GM PACKET PO PRN (05:45)
[2020-11-30] MEDS: LEVOTHYROXINE 88MCG TABLET (0.088 MG) PO SCH (05:45)
[2020-11-30] MEDS: TORSEMIDE 20 MG TAB PO SCH ×2 (05:47→13:32)
[2020-11-30] MEDS: traMADol 50 MG TAB PO PRN ×2 (05:50→13:25)
[2020-11-30 06:20] VITALS: BP 102/45
[2020-11-30 07:52] LABS: HEMATOCRIT 30.7 % (36.0-47.0); HEMOGLOBIN 9.5 g/dl (12.0-15.5); MEAN CORPUSCULAR HEMOGLOBIN 32.5 pg (27.0-33.0); MEAN CORPUSCULAR HGB CONC 30.9 g/dl (32.0-36.5); MEAN CORPUSCULAR VOLUME 105.1 fl (80.0-96.0); RED BLOOD COUNT 2.92 10^6/uL (4.00-5.40); WHITE BLOOD COUNT 2.4 10^3/uL (4.0-10.0)
[2020-11-30 07:54] LABS: PLATELET COUNT, AUTOMATED 43 10^3/uL (150-450)
[2020-11-30 08:05] LABS: BLOOD UREA NITROGEN 16 MG/DL (7-18); CALCIUM LEVEL 8.7 MG/DL (8.8-10.2); CARBON DIOXIDE LEVEL 32 MEQ/L (21-32); CHLORIDE LEVEL 106 MEQ/L (98-107); CREATININE FOR GFR 0.42 MG/DL (0.55-1.30); GLOMERULAR FILTRATION RATE > 60.0 (>45); GLUCOSE, FASTING 75 MG/DL (70-100); POTASSIUM SERUM 3.6 MEQ/L (3.5-5.1); SODIUM LEVEL 142 MEQ/L (136-145)
[2020-11-30] MEDS: CYCLOBENZAPRINE 10MG TABLET PO SCH ×3 (08:19→20:22)
[2020-11-30] MEDS: GABAPENTIN 400MG CAP PO SCH ×3 (08:19→20:23)
[2020-11-30] MEDS: DOCUSATE SODIUM 100MG CAPSULE PO SCH ×2 (08:20→20:23)
[2020-11-30] MEDS: POTASSIUM CHLORIDE 10 MEQ SR TABLET PO SCH (08:20)
[2020-11-30] MEDS: PANTOPRAZOLE 40MG TAB (PROTONIX) PO SCH ×2 (08:21→20:23)
[2020-11-30] MEDS: PERCOCET 5MG/325MG TAB PO PRN (08:22)
[2020-11-30] MEDS: VENLAFAXINE **XR** 75MG CAPSULE PO SCH ×2 (08:24→20:23)
[2020-11-30] MEDS: bisoproloL fumarate 5 MG TAB PO SCH ×2 (08:25→20:28)
[2020-11-30] MEDS: traZODone 50 MG TAB PO SCH (20:22)
[2020-11-30] MEDS: CYANOCOBALAMIN 500 MCG TAB PO SCH (20:23)
[2020-12-01] MEDS: traMADol 50 MG TAB PO PRN ×2 (00:38→18:16)
[2020-12-01] MEDS: TORSEMIDE 20 MG TAB PO SCH ×2 (06:00→13:17)
[2020-12-01] MEDS: LEVOTHYROXINE 88MCG TABLET (0.088 MG) PO SCH (06:18)
[2020-12-01 06:19] VITALS: BP 104/52
[2020-12-01 06:58] LABS: HEMATOCRIT 28.9 % (36.0-47.0); MEAN CORPUSCULAR HGB CONC 31.1 g/dl (32.0-36.5); MEAN CORPUSCULAR VOLUME 105.9 fl (80.0-96.0); RED BLOOD COUNT 2.73 10^6/uL (4.00-5.40); WHITE BLOOD COUNT 2.1 10^3/uL (4.0-10.0)
[2020-12-01 06:59] LABS: PLATELET COUNT, AUTOMATED 58 10^3/uL (150-450)
[2020-12-01 07:27] LABS: BLOOD UREA NITROGEN 15 MG/DL (7-18); CALCIUM LEVEL 8.9 MG/DL (8.8-10.2); CARBON DIOXIDE LEVEL 33 MEQ/L (21-32); CHLORIDE LEVEL 104 MEQ/L (98-107); CREATININE FOR GFR 0.47 MG/DL (0.55-1.30); GLOMERULAR FILTRATION RATE > 60.0 (>45); GLUCOSE, FASTING 73 MG/DL (70-100); POTASSIUM SERUM 3.4 MEQ/L (3.5-5.1); SODIUM LEVEL 140 MEQ/L (136-145)
[2020-12-01] MEDS: GABAPENTIN 400MG CAP PO SCH ×3 (08:49→21:39)
[2020-12-01] MEDS: CYCLOBENZAPRINE 10MG TABLET PO SCH ×3 (08:49→21:39)
[2020-12-01] MEDS: VENLAFAXINE **XR** 75MG CAPSULE PO SCH ×2 (08:50→21:38)
[2020-12-01] MEDS: DOCUSATE SODIUM 100MG CAPSULE PO SCH ×2 (08:50→21:39)
[2020-12-01] MEDS: POTASSIUM CHLORIDE 10 MEQ SR TABLET PO SCH (08:50)
[2020-12-01] MEDS: PANTOPRAZOLE 40MG TAB (PROTONIX) PO SCH ×2 (08:51→21:39)
[2020-12-01] MEDS: bisoproloL fumarate 5 MG TAB PO SCH ×2 (08:53→21:00)
[2020-12-01 09:47] VITALS: BP 84/47
[2020-12-01 13:34] VITALS: BP 84/48
[2020-12-01 14:33] VITALS: BP 84/48
[2020-12-01] MEDS: CYANOCOBALAMIN 500 MCG TAB PO SCH (21:39)
[2020-12-01] MEDS: traZODone 50 MG TAB PO SCH (21:39)
[2020-12-02 06:00] VITALS: BP 103/46
[2020-12-02 06:00] LABS: HEMATOCRIT 28.1 % (36.0-47.0); MEAN CORPUSCULAR HEMOGLOBIN 33.6 pg (27.0-33.0); MEAN CORPUSCULAR VOLUME 104.9 fl (80.0-96.0); RED BLOOD COUNT 2.68 10^6/uL (4.00-5.40); WHITE BLOOD COUNT 2.1 10^3/uL (4.0-10.0)
[2020-12-02] MEDS: TORSEMIDE 20 MG TAB PO SCH ×2 (06:00→14:00)
[2020-12-02 06:03] LABS: PLATELET COUNT, AUTOMATED 56 10^3/uL (150-450)
[2020-12-02] MEDS: LEVOTHYROXINE 88MCG TABLET (0.088 MG) PO SCH (06:23)
[2020-12-02 06:37] LABS: BLOOD UREA NITROGEN 12 MG/DL (7-18); CALCIUM LEVEL 8.5 MG/DL (8.8-10.2); CARBON DIOXIDE LEVEL 34 MEQ/L (21-32); CHLORIDE LEVEL 105 MEQ/L (98-107); GLOMERULAR FILTRATION RATE > 60.0 (>45); GLUCOSE, FASTING 85 MG/DL (70-100); POTASSIUM SERUM 3.6 MEQ/L (3.5-5.1); SODIUM LEVEL 140 MEQ/L (136-145)
[2020-12-02] MEDS: DOCUSATE SODIUM 100MG CAPSULE PO SCH ×2 (08:46→20:11)
[2020-12-02] MEDS: POTASSIUM CHLORIDE 10 MEQ SR TABLET PO SCH (08:48)
[2020-12-02] MEDS: bisoproloL fumarate 5 MG TAB PO SCH ×2 (08:48→20:16)
[2020-12-02] MEDS: PANTOPRAZOLE 40MG TAB (PROTONIX) PO SCH ×2 (08:48→20:12)
[2020-12-02] MEDS: GABAPENTIN 400MG CAP PO SCH ×3 (08:48→20:12)
[2020-12-02] MEDS: VENLAFAXINE **XR** 75MG CAPSULE PO SCH ×2 (08:48→20:12)
[2020-12-02] MEDS: CYCLOBENZAPRINE 10MG TABLET PO SCH ×3 (08:48→20:12)
[2020-12-02] MEDS: PERCOCET 5MG/325MG TAB PO PRN (09:18)
[2020-12-02] MEDS: traZODone 50 MG TAB PO SCH (20:12)
[2020-12-02] MEDS: CYANOCOBALAMIN 500 MCG TAB PO SCH (20:12)
[2020-12-03] MEDS: traMADol 50 MG TAB PO PRN ×2 (02:28→14:26)
[2020-12-03] MEDS: TORSEMIDE 20 MG TAB PO SCH ×2 (05:22→14:22)
[2020-12-03] MEDS: LEVOTHYROXINE 88MCG TABLET (0.088 MG) PO SCH (05:58)
[2020-12-03 06:00] VITALS: BP 115/47
[2020-12-03] MEDS: CYCLOBENZAPRINE 10MG TABLET PO SCH ×3 (08:26→20:56)
[2020-12-03] MEDS: GABAPENTIN 400MG CAP PO SCH ×3 (08:27→20:56)
[2020-12-03] MEDS: POTASSIUM CHLORIDE 10 MEQ SR TABLET PO SCH (08:27)
[2020-12-03] MEDS: VENLAFAXINE **XR** 75MG CAPSULE PO SCH ×2 (08:28→20:56)
[2020-12-03] MEDS: bisoproloL fumarate 5 MG TAB PO SCH ×2 (08:28→20:56)
[2020-12-03] MEDS: DOCUSATE SODIUM 100MG CAPSULE PO SCH ×2 (08:28→20:55)
[2020-12-03] MEDS: PANTOPRAZOLE 40MG TAB (PROTONIX) PO SCH ×2 (08:28→20:55)
[2020-12-03] MEDS: MIRALAX *UNIT DOSE* 17GM PACKET PO PRN (08:28)
[2020-12-03] MEDS: CYANOCOBALAMIN 500 MCG TAB PO SCH (20:56)
[2020-12-03] MEDS: traZODone 50 MG TAB PO SCH (20:56)
[2020-12-04] MEDS: TORSEMIDE 20 MG TAB PO SCH ×2 (05:28→13:57)
[2020-12-04] MEDS: LEVOTHYROXINE 88MCG TABLET (0.088 MG) PO SCH (05:53)
[2020-12-04 06:00] VITALS: BP 95/39
[2020-12-04 09:00] VITALS: BP 97/49
[2020-12-04] MEDS: bisoproloL fumarate 5 MG TAB PO SCH (09:00)
[2020-12-04] MEDS: DOCUSATE SODIUM 100MG CAPSULE PO SCH (09:21)
[2020-12-04] MEDS: POTASSIUM CHLORIDE 10 MEQ SR TABLET PO SCH (09:21)
[2020-12-04] MEDS: GABAPENTIN 400MG CAP PO SCH ×2 (09:21→13:57)
[2020-12-04] MEDS: CYCLOBENZAPRINE 10MG TABLET PO SCH (09:21)
[2020-12-04] MEDS: VENLAFAXINE **XR** 75MG CAPSULE PO SCH (09:22)
[2020-12-04] MEDS: PANTOPRAZOLE 40MG TAB (PROTONIX) PO SCH (09:22)
[2020-12-04] MEDS: traMADol 50 MG TAB PO PRN (09:32)
[2020-12-04] MEDS: MIRALAX *UNIT DOSE* 17GM PACKET PO PRN (09:32)
[2020-12-04] MEDS ORDERED: TRAM50TA2 PO (10:20)
--- NOTE | 2020-12-04 10:53 | DS.PDOC ---
Discharge Summary General Date of Admission Nov 19, 2020 at 04:11 Date of Discharge Dec 04, 2020 Specialist/Consultants Involve Orthopedic surgery, Dr. Johnson Discharge Summary PROCEDURES PERFORMED DURING STAY: Left ankle open reduction, internal fixation with percutaneous technique by Dr. Johnson on 11/25/2020 ADMITTING DIAGNOSES: 1. Left bimalleolar fracture secondary to traumat 2. Liver cirrhosis secondary to alpha-1 antitrypsin deficiency and LISA 3. 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 Paroxysmal atrial fibrillation 5. Hypothyroidism 6. Peripheral neuropathy 7. Depression 8. Insomnia DISCHARGE DIAGNOSES: 1. Left bimalleolar fracture secondary to traumat 2. Liver cirrhosis secondary to alpha-1 antitrypsin deficiency and LISA 3. 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 Paroxysmal atrial fibrillation 5. Hypothyroidism 6. Peripheral neuropathy 7. Depression 8. Insomnia COMPLICATIONS/CHIEF COMPLAINT: Bimalleolar Ankle Fracture,Morbid Obesity. HISTORY OF PRESENT ILLNESS: Mrs. Saucedo is a 65 year old female with alpha 1 anti-trypsin deficiency with COPD and liver cirrhosis who presents with acute trauma to the left ankle. She normally uses a walker, but while shopping she was using an electric scooter. She was leaving a store to walk into the cab without her walker when she tripped over a sign. She felt a 10/10 sharp left ankle pain. EMS was called for and she was brought to the ED. She was found to have bimalleolar ankle fracture in the ED. She was admitted for traumatic fracture of the left ankle. HOSPITAL COURSE: Orthopedic surgery was consulted. It was a complicated fracture, and the orthopedic surgeon recommended that Dr. Johnson perform the procedure. He had an opening the following week. On 11/25/2020, patient had left ankle open reduction, internal fixation. Patient is to be nonweightbearing to the left lower extremity for 6 to 8 weeks. Patient is to follow up with Dr. Johnson in two weeks for post-operative wound check. Physical therapy had recommended acute rehab. Otherwise, patient's blood pressure has been well controlled. Bisoprolol 5mg BID and Torsemide 20mg BID were held for multiple days. We will not continue these medications on discharge since she has not been receiving these medications. Today, patient feels well. Denies chest pain or dyspnea. Still has some soreness in her left ankle. Otherwise, she feels ready for discharge to [facility]. DISCHARGE MEDICATIONS: Please see below. ALLERGIES: Please see below. PHYSICAL EXAMINATION ON DISCHARGE: VITAL SIGNS: Please see below. GENERAL: Comfortable, in no apparent distress. HEENT: Head normocephalic/atraumatic, EOMI, sclera clear. NECK: Supple RESPIRATORY: Lungs clear to auscultation bilaterally, no rales, wheeze or rh onchi. CARDIOVASCULAR: Regular rate, irregular rhythm. ABDOMEN: Soft, obese, no tenderness. Normal bowel sounds. MUSCLE SKELETAL: Left ankle in cast NEUROLOGICAL: CN 312 grossly intact PSYCHOLOGICAL: Normal mood and affect LABORATORY DATA: Please see below. IMAGING: Radiologist impression XR hip 1. No fracture or dislocation of the bony pelvis or left hip. 2. Chronic compression fracture of L5 that can also be seen in the CT abdomen and pelvis on 10/02/2020. XR left ankle 1. Acute minimally displaced oblique fracture involving the left distal fibular metaphysis. 2. Acute minimally displaced fracture involving the left posterior malleolus. CT ankle (excerpt of read) Mildly comminuted fracture distal fibula noted. The primary fracture plane is oblique. There is mild posterolateral displacement of the major distal fragment. There is a mildly comminuted fracture of the posterior malleolus of the distal tibia which communicates with the tibiotalar joint. There is slight posterior displacement of the major fracture fragment. The tibiotalar joint space is decreased posteriorly in the region of the fracture and mildly increased anteriorly. PROGNOSIS: Good ACTIVITY: As tolerated. DIET: 2gm sodium DISCHARGE PLAN: [facility] DISPOSITION: [facility] DISCHARGE INSTRUCTIONS: 1. Follow up with PCP in 1 week 2. Follow up with Dr. Johnson for 2 week post-operative wound check up 3. Non weight being status of left lower extremity DISCHARGE CONDITION: Stable Total time spent on discharge planning, discharge summary, and medication reconciliation: 45 minutes Vital Signs/I&Os Vital Signs Date Time Temp Pulse Resp B/P (MAP) Pulse Ox O2 Delivery O2 Flow Rate FiO2 12/04/20 09:32 18 12/04/20 09:00 59 97/49 12/04/20 06:00 97.2 94 Nasal Cannula 2.0 I&O- Last 24 Hours up to 6 AM 12/04/20 06:00 Intake Total 2100 ml Output Total 1800 ml Balance 300 ml Microbiology Microbiology 12/02/20 Respiratory Virus Panel (PCR) (ARMANDO) - Final, Complete Discharge Medications Scheduled Calcium Carbonate/Vitamin D3 (Calcium 500-Vit D3 200 Tablet) 1 Each Tablet, 2 TAB PO QHS, (Reported) Cyanocobalamin (Vitamin B-12) (Vitamin B-12) 1,000 Mcg Tablet, 1,000 MCG PO QHS, (Reported) Cyclobenzaprine HCl (Cyclobenzaprine HCl) 10 Mg Tablet, 10 MG PO TID, (Reported) Gabapentin (Gabapentin) 800 Mg Tablet, 800 MG PO BID, (Reported) Gabapentin (Gabapentin) 400 Mg Capsule, 400 MG PO DAILY, (Reported) TAKES AT 1500 Levothyroxine Sodium (Levothyroxine Sodium) 88 Mcg Tablet, 88 MCG PO DAILY, (Reported) Pantoprazole Sodium (Pantoprazole Sodium) 40 Mg Tablet.dr, 40 MG PO BID, (Reported) Potassium Chloride (Potassium Chloride) 20 Meq Tab.er.prt, 20 MEQ PO QHS, (Reported) Trazodone HCl (Trazodone HCl) 150 Mg Tablet, 150 MG PO QHS, (Reported) Venlafaxine HCl (Venlafaxine HCl ER) 75 Mg Cap.er.24h, 75 MG PO DAILY, (Reported) Venlafaxine HCl (Venlafaxine HCl ER) 75 Mg Cap.er.24h, 150 MG PO QHS, (Reported) Vitamin B Complex (Vitamin B Complex) 1 Each Tablet, 1 TAB PO DAILY, (Reported) Scheduled PRN Docusate Sodium (Docusate Sodium) 100 Mg Capsule, 100 MG PO BID PRN for CONSTIPATION, (Reported) Ipratropium/Albuterol Sulfate (Iprat-Albut 0.5-3(2.5) mg/3 ml) 3 Ml Ampul.neb, 3 ML INH Q6H PRN for SHORTNESS OF BREATH, (Reported) Tramadol HCl (Tramadol HCl) 50 Mg Tablet, 100 MG PO Q6H PRN for SEVERE PAIN (PS 8-10) Allergies Coded Allergies: naloxone (Verified Allergy, Unknown, sz, 10/01/20) codeine (Verified Adverse Reaction, Intermediate, CHESP PAIN, 10/01/20) ibuprofen (Verified Adverse Reaction, Intermediate, JOINT/ MUSCLE PAIN, 10/01/20) pregabalin (Verified Adverse Reaction, Intermediate, chest pain, 10/01/20) amoxicillin (Verified Adverse Reaction, Mild, vomiting and diarrhea, 10/01/20) clavulanic acid (Verified Adverse Reaction, Mild, vomiting and diarrhea, 10/01/20) erythromycin base (Verified Adverse Reaction, Mild, vomting diarrhea, 10/01/20) hydromorphone (Verified Adverse Reaction, Mild, ITCHING, 10/01/20) CAN TAKE IF BENADRYL GIVEN PRIOR SAVANNAH HALLMAN DO Dec 04, 2020 10:53
[2020-12-04 14:00] VITALS: BP 103/46
== END 2020-12-04 15:20 | DRG 313 ==
LOC: M ED 00:08 → M ED INP 04:11 → M MS5PR 05:33
PROVIDERS: ADMIT Family Medicine; ATTEND Internal Medicine
PROC: 0QSH34Z Reposition Left Tibia with Internal Fixation Device, Percutaneous Approach (ICD-10-PCS; 2020-11-25)
PROC: 0QSK36Z Reposition Left Fibula with Intramedullary Internal Fixation Device, Percutaneous Approach (ICD-10-PCS; principal; 2020-11-25 14:30)
DX: S82.842A Displaced bimalleolar fracture of left lower leg, initial encounter for closed fracture (principal); E88.01 Alpha-1-antitrypsin deficiency; K76.6 Portal hypertension; I50.32 Chronic diastolic (congestive) heart failure; D69.6 Thrombocytopenia, unspecified; I27.20 Pulmonary hypertension, unspecified; G62.9 Polyneuropathy, unspecified; I48.0 Paroxysmal atrial fibrillation; E66.01 Morbid (severe) obesity due to excess calories; Z68.44 Body mass index [BMI] 60.0-69.9, adult; J44.9 Chronic obstructive pulmonary disease, unspecified; K74.60 Unspecified cirrhosis of liver; W18.09XA Striking against other object with subsequent fall, initial encounter; Y92.512 Supermarket, store or market as the place of occurrence of the external cause; M81.0 Age-related osteoporosis without current pathological fracture; E03.9 Hypothyroidism, unspecified; F32.9 Major depressive disorder, single episode, unspecified; K29.50 Unspecified chronic gastritis without bleeding; K31.819 Angiodysplasia of stomach and duodenum without bleeding; G47.00 Insomnia, unspecified; M62.838 Other muscle spasm; Z86.14 Personal history of Methicillin resistant Staphylococcus aureus infection; Z86.718 Personal history of other venous thrombosis and embolism; Z90.49 Acquired absence of other specified parts of digestive tract; Z20.822 Contact with and (suspected) exposure to COVID-19; Z79.899 Other long term (current) drug therapy; Z88.5 Allergy status to narcotic agent; Z88.6 Allergy status to analgesic agent; Z88.1 Allergy status to other antibiotic agents; Z88.8 Allergy status to other drugs, medicaments and biological substances; Z88.0 Allergy status to penicillin; Z86.73 Personal history of transient ischemic attack (TIA), and cerebral infarction without residual deficits; Y99.8 Other external cause status

== ENCOUNTER → 2021-01-20 | Outpatient (CLI) | payer OTHER ==
[~2021-01-20] MED LIST changes: +DOCU100C16 PO; +GABA-283 PO; -GABA-845 PO; +SIME180C25 PO; +TRAM50TA2 PO
--- NOTE | 2021-01-20 10:17 | REP ---
INDICATION: AFTERCARE. COMPARISON: 11/19/2020 FINDINGS: Patient is noted to be status post open reduction and fixation for distal fibular and posterior malleolar fracture. Underlying age-related osteopenia and degenerative changes noted. IMPRESSION: Status post satisfactory open reduction and fixation for posterior and lateral ankle fractures. <Electronically signed by Jamar Paredes > 01/20/21 [id number]
== END ==
LOC: M SOG 09:30
PROVIDERS: ATTEND Orthopaedic Surgery
DX: Z48.89 Encounter for other specified surgical aftercare (principal); Z98.890 Other specified postprocedural states

== ENCOUNTER → 2021-03-05 | Outpatient (CLI) | payer OTHER ==
--- NOTE | 2021-03-05 11:14 | REP ---
INDICATION: OTH FRACTURE OF L LOW LEG, SUBS FOR CLOS FX W ROUTINE HEAL. COMPARISON: 01/20/2021. TECHNIQUE: Four views left ankle. FINDINGS: Metallic internal fixation is again seen in the distal fibula and tibia. The osseous structures are well-aligned. The ankle mortise is anatomic. There is mild posterior and inferior calcaneal spurring. IMPRESSION: Metallic internal fixation distal tibia and fibula with stable alignment. <Electronically signed by Alejandro Coleman > 03/05/21 [id number]
== END ==
LOC: M SOG 09:24
PROVIDERS: ATTEND Orthopaedic Surgery
DX: S82.892D Other fracture of left lower leg, subsequent encounter for closed fracture with routine healing (principal); M77.32 Calcaneal spur, left foot

== ENCOUNTER 2021-04-25 04:40 | Inpatient (IN) | payer OTHER ==
[~2021-04-25] VITALS: Ht 162.6 cm; Wt 177.8 kg
[~2021-04-25 04:40] MED LIST changes: +DOK1CAP4 PO; -DOK1CAP7 PO; -DOXY100C PO; +DOXY100C3 PO
[2021-04-25] MEDS ORDERED: TORS20TA2 PO (05:10)
[2021-04-25] MEDS ORDERED: TIZA4TAB4 PO (05:10)
[2021-04-25 07:39] LABS: BASO % 0.4 % (0.0-1.0); EOS # 0.1 10^3/uL (0.0-0.5); EOS % 4.8 % (0.0-3.0); HEMATOCRIT 26.8 % (36.0-47.0); HEMOGLOBIN 7.9 g/dl (12.0-15.5); LYMPH # 0.5 10^3/uL (1.5-5.0); LYMPH % 19.8 % (24.0-44.0); MEAN CORPUSCULAR HGB CONC 29.5 g/dl (32.0-36.5); MEAN CORPUSCULAR VOLUME 98.5 fl (80.0-96.0); MONO # 0.2 10^3/uL (0.0-0.8); MONO % 7.9 % (2.0-8.0); NEUTROPHILS # 1.5 10^3/uL (1.5-8.5); NEUTROPHILS % 67.1 % (36.0-66.0); PLATELET COUNT, AUTOMATED 58 10^3/uL (150-450); RED BLOOD COUNT 2.72 10^6/uL (4.00-5.40); WHITE BLOOD COUNT 2.3 10^3/uL (4.0-10.0)
[2021-04-25] MEDS ORDERED: VANCOMYCIN HCL 2,000 MG in D5W 500 ML IV ONE (07:55)
[2021-04-25 07:58] LABS: ERYTHROCYTE SEDIMENTATION RATE 16 mm/hr (0-30)
[2021-04-25] MEDS ORDERED: VANCOMYCIN HCL 1,000 MG, VIAL MATE ADAPTER 1 EACH in NS 250 ML IV ONE ×6 (08:00)
[2021-04-25 08:10] LABS: ALBUMIN 2.5 GM/DL (3.2-5.2); ALT/SGPT 15 U/L (12-78); BILIRUBIN,DIRECT 0.4 MG/DL (0.0-0.2); BILIRUBIN,TOTAL 1.1 MG/DL (0.2-1.0); BLOOD UREA NITROGEN 7 MG/DL (7-18); C REACTIVE PROTEIN QUANTITATIV 1.07 MG/DL (0.00-0.30); CALCIUM LEVEL 7.8 MG/DL (8.8-10.2); CARBON DIOXIDE LEVEL 26 MEQ/L (21-32); CHLORIDE LEVEL 116 MEQ/L (98-107); CREATININE FOR GFR 0.47 MG/DL (0.55-1.30); GLOMERULAR FILTRATION RATE > 60.0 (>45); GLUCOSE, FASTING 93 MG/DL (70-100); POTASSIUM SERUM 3.4 MEQ/L (3.5-5.1); SODIUM LEVEL 146 MEQ/L (136-145); TOTAL PROTEIN 5.2 GM/DL (6.4-8.2)
--- NOTE | 2021-04-25 08:39 | REP ---
INDICATION: R/O DVT. COMPARISON: None. TECHNIQUE: Duplex left upper extremity FINDINGS: No evidence of deep venous thrombosis above or below the elbow. IMPRESSION: Negative venous duplex examination left upper extremity. <Electronically signed by [place] > 04/25/21 [id number]
[2021-04-25] MEDS ORDERED: TORSEMIDE 20 MG TAB PO SCH (09:00)
[2021-04-25] MEDS ORDERED: CYAN100050 PO (09:24)
[2021-04-25] MEDS ORDERED: TRAM50TA2 PO (09:24)
[2021-04-25] MEDS ORDERED: VENL150C43 PO (09:24)
[2021-04-25] MEDS ORDERED: HOME MED LIST COMPLETE! XX SCH (09:25)
[2021-04-25] MEDS ORDERED: IPRATROPIUM 0.5MG/ALBUTEROL 2.5MG INH SOL UD 3ML (DUONEB) INH PRN (09:40)
[2021-04-25 09:43] LABS: RSV AMPLIFICATION NEGATIVE (NEGATIVE)
[2021-04-25 10:53] VITALS: BP 127/64
[2021-04-25] MEDS: CYANOCOBALAMIN 500 MCG TAB PO SCH (12:05)
[2021-04-25] MEDS: PANTOPRAZOLE 40MG TAB (PROTONIX) PO SCH ×2 (12:05→21:14)
[2021-04-25] MEDS: VENLAFAXINE **XR** 75MG CAPSULE PO SCH ×2 (12:05→21:14)
[2021-04-25] MEDS: GABAPENTIN 400MG CAP PO SCH ×3 (12:10→21:14)
--- NOTE | 2021-04-25 12:58 | HPEPDOC ---
General Date of Admission Apr 25, 2021 at 09:30 Date of Service: Apr 25, 2021 Chief Complaint The patient is a 65-year-old female admitted with a reason for visit of Cellulitis Of Abdominal Wall/ Of Left Upper Ext. Source: Patient History of Present Illness Mrs. Saucedo is a 65 year old female with anti-trypsin deficiency with cirrhosis and COPD who is here for left upper extremity cellulitis that extends down to left lateral abdomen. She was recent sent home from rehab for her left ankle surgery. About one week ago, she had an area of redness on her left arm. Denies any trauma, cuts, scrapes, or bug bites. She does not know how she got the cellulitis, but the cellulitis started to extend down her left chest, left breast, and left lateral abdominal wall. While at home, she had a fever of 101 and chills. She has dyspnea and a dry cough. She chronically on 2L NC due to her COPD. Otherwise, denies chest pain or dysuria. She did have diarrhea 4 times the day before yesterday, but no bowel movements yesterday. Patient will be admitted for cellulitis. Home Medications Scheduled Calcium Carbonate/Vitamin D3 (Calcium 500-Vit D3 200 Tablet) 1 Each Tablet, 2 TAB PO QHS, (Reported) Cyanocobalamin (Vitamin B-12) (Vitamin B-12) 1,000 Mcg Tablet, 1,000 MCG PO DAILY, (Reported) Gabapentin (Gabapentin) 800 Mg Tablet, 800 MG PO BID, (Reported) MORNING AND BEDTIME Gabapentin (Gabapentin) 400 Mg Capsule, 400 MG PO DAILY, (Reported) TAKES AT 1500 Levothyroxine Sodium (Levothyroxine Sodium) 88 Mcg Tablet, 88 MCG PO DAILY, (Reported) Pantoprazole Sodium (Pantoprazole Sodium) 40 Mg Tablet.dr, 40 MG PO BID, (Reported) Potassium Chloride (Potassium Chloride) 20 Meq Tab.er.prt, 20 MEQ PO QHS, (Reported) Tizanidine HCl (Tizanidine HCl) 4 Mg Tablet, 4 MG PO TID, (Reported) Torsemide (Torsemide) 20 Mg Tablet, 20 MG PO DAILY, (Reported) Trazodone HCl (Trazodone HCl) 150 Mg Tablet, 150 MG PO QHS, (Reported) Venlafaxine HCl (Venlafaxine HCl ER) 75 Mg Cap.er.24h, 75 MG PO DAILY, (Reported) Venlafaxine HCl (Venlafaxine HCl ER) 150 Mg Cap.er.24h, 150 MG PO QHS, (Reported) Scheduled PRN Ipratropium/Albuterol Sulfate (Iprat-Albut 0.5-3(2.5) mg/3 ml) 3 Ml Ampul.neb, 3 ML INH Q6H PRN for SHORTNESS OF BREATH, (Reported) Tramadol HCl (Tramadol HCl) 50 Mg Tablet, 100 MG PO Q6H PRN for SEVERE PAIN (PS 8-10), (Reported) Allergies Coded Allergies: naloxone (Verified Allergy, Unknown, sz, 10/01/20) codeine (Verified Adverse Reaction, Intermediate, CHESP PAIN, 10/01/20) ibuprofen (Verified Adverse Reaction, Intermediate, JOINT/ MUSCLE PAIN, 10/01/20) pregabalin (Verified Adverse Reaction, Intermediate, chest pain, 10/01/20) amoxicillin (Verified Adverse Reaction, Mild, vomiting and diarrhea, 10/01/20) clavulanic acid (Verified Adverse Reaction, Mild, vomiting and diarrhea, 10/01/20) erythromycin base (Verified Adverse Reaction, Mild, vomting diarrhea, 10/01/20) hydromorphone (Verified Adverse Reaction, Mild, ITCHING, 10/01/20) CAN TAKE IF BENADRYL GIVEN PRIOR Past Medical History Medical History 1. Alpha-1 anti-trypsin deficiency with COPD and liver cirrhosis 2. Portal hypertension 3. GAVE with hx of GI bleeding 4. Bilateral sciatica 5. Right CVA 6. History of seizures 7. Hemorrhoids 8. COPD 9. CHF, diastolic 10. Pulmonary hypertension 11. History of nephrolithiasis 12. Osteoporosis 13. Hypothyroidism 14. Pulmonary nodules 15. Atrial fibrillation-not on anticoagulation due to GI bleed 16. Pancytopenia, following heme/onco 17. Neuropathy, idiopathic 18. Depression/Insomnia 19. Morbid obesity 20. History of B12 deficiency 21. History of MRSA 22. History of DVT in multiple extremities 23. Left bimalleolar fracture secondary to trauma s/p left ankle ORIF 24. Peripheral neuropathy Surgical History 1. Cholecystectomy 2. Hemorrhoidectomy 3. Appendectomy 4. Tonsillectomy 5. Upper endoscopy 6. Midline insertions 7. Adenoidectomy 8. section 9. Hysterectomy with bilateral salpingo/oophorectomy 10. Left knee arthroscopy 11. Incarcerated abdominal hernia 12. Left ankle open reduction, internal fixation Family History Father: at 75 years old, history of breast cancer Mother: at 79 years old, history of ALS Social History * Smoker: Denies Alcohol: Denies Drugs: denies A-FIB/CHADSVASC A-FIB History Current/History of A-Fib/PAF?: Yes Current PO Anticoag Therapy: No Treatment Reason Anticoagulant not given: Other Other reason anticoagulant not: Has GAVE and history of GI bleeding Review of Systems Constitutional: Reports: Chills, Fever Eyes: Reports: Other (blurry vision, she is planning to make an appointment with her eye doctor) ENT: Denies: Sore Throat Skin: Reports: Rash (Left arm and left lateral abdominal wall red and tender rash) Pulmonary: Reports: Dyspnea (chronically on 2L NC), Cough (dry) Cardiovascular: Denies: Chest Pain Gastrointestinal: Reports: Abdominal Pain (Where the rash is located (left lateral wall)) Genitourinary: Denies: Dysuria Hematologic: Reports: Bruising (Easy bruisability) Neurological: Reports: Other Symptoms (Neuropathy of legs bilaterally) Psych: Reports: Anxiety, Depression Physical Examination General Exam: Positive: Alert, Cooperative Eye Exam: Positive: EOMI; Negative: Sclera icteric ENT Exam: Positive: Atraumatic Neck Exam: Positive: Supple Chest Exam: Positive: Diminished Heart Exam: Positive: Rate Normal, Regular Rhythm Abdomen Exam: Positive: Normal bowel sounds, Soft, Tenderness (were the rash was located) Extremity Exam: Positive: Edema (bilateral pitting edema) Neuro Exam: Positive: Normal Speech, Cranial Nerves 3-12 NL Psych Exam: Positive: Mental status NL, Mood NL Vital Signs Vital Signs Date Time Temp Pulse Resp B/P (MAP) Pulse Ox O2 Delivery O2 Flow Rate FiO2 04/25/21 10:30 97.3 93 20 131/58 (82) 100 Nasal Cannula 2.0 Laboratory Data Labs 24H Laboratory Tests 2 04/25/21 07:11: Immature Granulocyte % (Auto) 0.0, Neutrophils (%) (Auto) 67.1H, Lymphocytes (%) (Auto) 19.8L, Monocytes (%) (Auto) 7.9, Eosinophils (%) (Auto) 4.8H, Basophils (%) (Auto) 0.4, Neutrophils # (Auto) 1.5, Lymphocytes # (Auto) 0.5L, Monocytes # (Auto) 0.2, Eosinophils # (Auto) 0.1, Basophils # (Auto) 0.0, Nucleated Red Blood Cells % (auto) 0.0, Immature Platelet Fraction 4.2, Erythrocyte Sedimentation Rate 16, Anion Gap 4L, Glomerular Filtration Rate > 60.0, Lactic Acid Level 1.5, Calcium Level 7.8L, Total Bilirubin 1.1H, Direct Bilirubin 0.4H, Aspartate Amino Transf (AST/SGOT) 31, Alanine Aminotransferase (ALT/SGPT) 15, Alkaline Phosphatase 95, C-Reactive Protein, Quantitative 1.07H, Total Protein 5.2L, Albumin 2.5L, Albumin/Globulin Ratio 0.9L 04/25/21 08:44: Coronavirus (COVID-19)(PCR) NEGATIVE, Influenza Type A (RT-PCR) NEGATIVE, Influenza Type B (RT-PCR) NEGATIVE, Respiratory Syncytial Virus (PCR) NEGATIVE CBC/BMP Laboratory Tests 04/25/21 07:11 Microbiology Microbiology 04/25/21 Blood Culture, Received Pending 04/25/21 Blood Culture, Received Pending Assessment/Plan Mrs. Saucedo is a 65 year old female with anti-trypsin deficiency with cirrhosis and COPD who is here for left upper extremity cellulitis that extends down to left lateral abdomen. She has a history of MRSA infection. Patient will be started on IV vancomycin. Plan / VTE VTE Prophylaxis Ordered?: Yes Plan Plan 1. Left upper extremity extensive cellulitis -Extends down from left arm to left breast, left lateral chest wall, and left lateral abdominal wall -Tender, hot, and erythematous -History of MRSA in past -Vancomycin day 1 2. Pancytopenia -Chronic -Follow with heme/onc outpatient -Monitor 3. Liver cirrhosis 2/2 anti-trypsin deficiency -Stable -Supportive care 4. COPD 2/2 anti-trypsin deficiency -Stable -Continue Duo nebs as needed 5. Chronic hypoxic respiratory failure -Chronically on 2L 6. Neuropathy -Continue gabapentin 7. Hypothyroidism -Continue levothyroxine 8. HFpEF -Stable -Continue Torsemide and supplemental KCL 9. Anxiety/Depression -Continue Venlafaxine 10. GERD -Continue pantoprazole 11. DVT ppx -Lovenox Disposition: Pending clinical improvement in cellulitis SAVANNAH HALLMAN DO Apr 25, 2021 12:58
[2021-04-25 14:00] VITALS: BP 116/47
[2021-04-25] MEDS: tiZANidine 4 MG TAB PO SCH ×2 (16:55→21:14)
[2021-04-25] MEDS: VANCOMYCIN HCL 1,000 MG, VIAL MATE ADAPTER 1 EACH in NS 250 ML IV SCH (16:55)
[2021-04-25] MEDS: POLYVINYL ALCOHOL OPHTH SOLN 15 ML(LIQUITEARS) OU SCH ×2 (16:55→21:15)
[2021-04-25] MEDS: POTASSIUM CHLORIDE 10 MEQ SR TABLET PO SCH (21:14)
[2021-04-25] MEDS: traZODone 50 MG TAB PO SCH (21:14)
[2021-04-25 22:00] VITALS: BP 135/61
[2021-04-26] VITALS (9 sets, daily range): BP systolic 91–138; BP diastolic 40–98
[2021-04-26] MEDS: VANCOMYCIN HCL 1,000 MG, VIAL MATE ADAPTER 1 EACH in NS 250 ML IV SCH ×2 (05:24→16:57)
[2021-04-26] MEDS: LEVOTHYROXINE 88MCG TABLET (0.088 MG) PO SCH (06:09)
[2021-04-26 06:35] LABS: HEMATOCRIT 25.3 % (36.0-47.0); HEMOGLOBIN 7.4 g/dl (12.0-15.5); MEAN CORPUSCULAR HEMOGLOBIN 29.5 pg (27.0-33.0); MEAN CORPUSCULAR HGB CONC 29.2 g/dl (32.0-36.5); MEAN CORPUSCULAR VOLUME 100.8 fl (80.0-96.0); RED BLOOD COUNT 2.51 10^6/uL (4.00-5.40); WHITE BLOOD COUNT 1.7 10^3/uL (4.0-10.0)
[2021-04-26 06:39] LABS: PLATELET COUNT, AUTOMATED 54 10^3/uL (150-450)
[2021-04-26 07:01] LABS: BLOOD UREA NITROGEN 8 MG/DL (7-18); C REACTIVE PROTEIN QUANTITATIV 0.77 MG/DL (0.00-0.30); CALCIUM LEVEL 7.4 MG/DL (8.8-10.2); CARBON DIOXIDE LEVEL 28 MEQ/L (21-32); CHLORIDE LEVEL 116 MEQ/L (98-107); CREATININE FOR GFR 0.54 MG/DL (0.55-1.30); GLOMERULAR FILTRATION RATE > 60.0 (>45); GLUCOSE, FASTING 122 MG/DL (70-100); POTASSIUM SERUM 3.5 MEQ/L (3.5-5.1); SODIUM LEVEL 146 MEQ/L (136-145)
[2021-04-26 07:13] LABS: ERYTHROCYTE SEDIMENTATION RATE 11 mm/hr (0-30)
[2021-04-26] MEDS ORDERED: D5/0.45%NACL 1000ML IV ONE (07:20)
[2021-04-26 08:06] LABS: FERRITIN 21 NG/ML (8-252); IRON (FE) 20 UG/DL (50-170); LDH LACTATE DEHYDROGENASE 263 U/L (84-246); TOTAL IRON BINDING CAPACITY 223 UG/DL (250-450)
[2021-04-26] MEDS: CYANOCOBALAMIN 500 MCG TAB PO SCH (08:09)
[2021-04-26] MEDS: VENLAFAXINE **XR** 75MG CAPSULE PO SCH ×2 (08:09→20:34)
[2021-04-26] MEDS: GABAPENTIN 400MG CAP PO SCH ×3 (08:09→20:34)
[2021-04-26] MEDS: tiZANidine 4 MG TAB PO SCH ×3 (08:09→20:34)
[2021-04-26] MEDS: PANTOPRAZOLE 40MG TAB (PROTONIX) PO SCH ×2 (08:09→20:34)
[2021-04-26] MEDS: POLYVINYL ALCOHOL OPHTH SOLN 15 ML(LIQUITEARS) OU SCH ×3 (08:09→20:37)
[2021-04-26 09:15] LABS: INR 1.48; PARTIAL THROMBOPLASTIN TIME 33.5 SECONDS (25.9-37.0); PROTHROMBIN TIME 18.3 SECONDS (12.7-14.5)
--- NOTE | 2021-04-26 14:03 | IPNPDOC ---
Subjective Date Seen The patient was seen on 04/26/21. Subjective Chief Complaint/HPI Mrs. Saucedo is a 65 year old female with anti-trypsin deficiency with cirrhosis and COPD who is here for left upper extremity cellulitis that extends down to left lateral abdomen. This morning, her cellulitis looks improved, but patient's hemoglobin was low. Patient denies any chest pain or dyspnea, but she has been craving ice chips. Whenever she does that, she knows she's anemic. Patient will be transfused with 2u pRBC today. Objective Physical Examination General Exam: Positive: Alert, Cooperative Eye Exam: Positive: EOMI; Negative: Sclera icteric ENT Exam: Positive: Atraumatic Neck Exam: Positive: Supple Chest Exam: Positive: Diminished Heart Exam: Positive: Rate Normal, Regular Rhythm Abdomen Exam: Positive: Normal bowel sounds, Soft, Tenderness (were the rash was located) Extremity Exam: Positive: Edema (bilateral pitting edema) Neuro Exam: Positive: Normal Speech, Cranial Nerves 3-12 NL Psych Exam: Positive: Mental status NL, Mood NL Assessment /Plan Assessment Mrs. Saucedo is a 65 year old female with anti-trypsin deficiency with cirrhosis and COPD who is here for left upper extremity cellulitis that extends down to left lateral abdomen. She has a history of MRSA infection. Patient will be started on IV vancomycin. Otherwise, patient exhibits iron deficiency anemia with iron at 20 and ferritin at 21. Since patient has infection, will hold off on IV iron, but patient may benefit from IV iron in the future. Will transfuse 2u pRBC today. Plan/VTE VTE Prophylaxis Ordered?: Yes Plan 1. Left upper extremity extensive cellulitis -Extends down from left arm to left breast, left lateral chest wall, and left lateral abdominal wall -Tender, hot, and erythematous -History of MRSA in past -Vancomycin day 2 2. Pancytopenia -Chronic -Follow with heme/onc outpatient -Monitor 3. Iron deficiency anemia -Iron 20, Ferritin 21 -Hemoglobin has been dropping -Transfuse 2u pRBC -Occult stool pending. No BM to produce sample 4. 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 Chronic hypoxic respiratory failure -Chronically on 2L 7. Neuropathy -Continue gabapentin 8. Hypothyroidism -Continue levothyroxine 9. HFpEF -Stable -Continue Torsemide and supplemental KCL 10. Anxiety/Depression -Continue Venlafaxine 11. GERD -Continue pantoprazole 12. DVT ppx -SCD and TEDs -Of note, patient was not on Lovenox yesterday or today Disposition: Pending clinical improvement in cellulitis and stability of H&H. Will need an occult stool to look for GI bleed, but may be unlikely as patient has not yet had a bowel movement. VS, I&O, 24H, Fishbone Vital Signs/I&O Vital Signs Date Time Temp Pulse Resp B/P (MAP) Pulse Ox O2 Delivery O2 Flow Rate FiO2 04/26/21 12:30 98.6 59 18 96/45 93 Nasal Cannula 2.0 I&O- Last 24 Hours up to 6 AM 04/26/21 05:59 Intake Total 750 ml Output Total 1900 ml Balance -1150 ml Laboratory Data 24H LABS Laboratory Tests 2 04/26/21 06:08: Reticulocyte # (auto) 63.0, Nucleated Red Blood Cells % (auto) 0.0, Erythrocyte Sedimentation Rate 11, Percent Reticulocyte Count 2.5H, Reticulocyte Hemoglobin Equivalent 25.0, Anion Gap 2L, Glomerular Filtration Rate > 60.0, Calcium Level 7.4L, Iron Level 20L, Total Iron Binding Capacity 223L, Transferrin % Saturation 9.0L, Ferritin 21, Lactate Dehydrogenase 263H, C-Reactive Protein, Quantitative 0.77H 04/26/21 08:42: Prothrombin Time 18.3H, Prothromb Time International Ratio 1.48, Activated Partial Thromboplast Time 33.5 CBC/BMP Laboratory Tests 04/26/21 06:08 Microbiology Microbiology 04/25/21 Blood Culture - Preliminary, Resulted No growth after 24 hours . All specim... 04/25/21 Blood Culture - Preliminary, Resulted No growth after 24 hours . All specim... SAVANNAH HALLMAN DO Apr 26, 2021 14:03
[2021-04-26] MEDS: NS 1,000 ML IV SCH (16:57)
[2021-04-26 17:32] LABS: HEMATOCRIT 34.7 % (36.0-47.0); MEAN CORPUSCULAR HEMOGLOBIN 28.9 pg (27.0-33.0); MEAN CORPUSCULAR HGB CONC 29.1 g/dl (32.0-36.5); MEAN CORPUSCULAR VOLUME 99.4 fl (80.0-96.0); RED BLOOD COUNT 3.49 10^6/uL (4.00-5.40); WHITE BLOOD COUNT 2.1 10^3/uL (4.0-10.0)
[2021-04-26 17:34] LABS: HEMOGLOBIN 10.1 g/dl (12.0-15.5); PLATELET COUNT, AUTOMATED 51 10^3/uL (150-450)
[2021-04-26] MEDS: POTASSIUM CHLORIDE 10 MEQ SR TABLET PO SCH (20:33)
[2021-04-26] MEDS: VANCOMYCIN HCL 500 MG in D5W MINI-BAG PLUS 100 ML IV SCH (20:34)
[2021-04-26] MEDS: traZODone 50 MG TAB PO SCH (20:34)
[2021-04-27] MEDS: VANCOMYCIN HCL 1,000 MG, VIAL MATE ADAPTER 1 EACH in NS 250 ML IV SCH ×2 (05:25→19:50)
[2021-04-27] MEDS: LEVOTHYROXINE 88MCG TABLET (0.088 MG) PO SCH (05:25)
[2021-04-27 06:00] VITALS: BP 112/80
[2021-04-27] MEDS: VANCOMYCIN HCL 500 MG in D5W MINI-BAG PLUS 100 ML IV SCH ×2 (07:07→22:14)
--- NOTE | 2021-04-27 08:06 | REP ---
INDICATION: breast firm area ?abscess. The study is acquired on 25 April 2021 and is presented to me for interpretation on 27 April 2021. COMPARISON: None. TECHNIQUE: Targeted left breast ultrasound. Nine to 10 o'clock position. Area of hard painful region. FINDINGS: Heterogeneous background echotexture is seen. Somewhat edematous subcutaneous tissue is observed but no fluid collection is identified. No mass lesion is seen. IMPRESSION: No evidence of abscess formation. Edematous subcutaneous tissue consistent with inflammation. Clinical follow-up is advised. <Electronically signed by Selvin Mo > 04/27/21 [id number]
[2021-04-27] MEDS: VENLAFAXINE **XR** 75MG CAPSULE PO SCH ×2 (08:16→22:21)
[2021-04-27] MEDS: PANTOPRAZOLE 40MG TAB (PROTONIX) PO SCH ×2 (08:17→22:21)
[2021-04-27] MEDS: POLYVINYL ALCOHOL OPHTH SOLN 15 ML(LIQUITEARS) OU SCH ×3 (08:17→22:21)
[2021-04-27] MEDS: tiZANidine 4 MG TAB PO SCH ×3 (08:17→22:21)
[2021-04-27] MEDS: CYANOCOBALAMIN 500 MCG TAB PO SCH (08:17)
[2021-04-27] MEDS: GABAPENTIN 400MG CAP PO SCH ×3 (08:17→22:20)
[2021-04-27] MEDS: DOCUSATE SODIUM 100MG CAPSULE PO SCH ×4 (09:00→22:20)
[2021-04-27] MEDS ORDERED: TORSEMIDE 20 MG TAB PO SCH (09:00)
[2021-04-27 09:37] LABS: HEMATOCRIT 30.5 % (36.0-47.0); HEMOGLOBIN 9.1 g/dl (12.0-15.5); MEAN CORPUSCULAR HEMOGLOBIN 29.4 pg (27.0-33.0); MEAN CORPUSCULAR HGB CONC 29.8 g/dl (32.0-36.5); MEAN CORPUSCULAR VOLUME 98.4 fl (80.0-96.0); WHITE BLOOD COUNT 2.1 10^3/uL (4.0-10.0)
[2021-04-27 09:43] LABS: PLATELET COUNT, AUTOMATED 31 10^3/uL (150-450)
[2021-04-27] MEDS ORDERED: MIRALAX *UNIT DOSE* 17GM PACKET PO PRN (10:20)
--- NOTE | 2021-04-27 10:20 | IPNPDOC ---
Subjective Date Seen The patient was seen on 04/27/21. Subjective Chief Complaint/HPI Mrs. Saucedo is a 65 year old female with anti-trypsin deficiency with cirrhosis and COPD who is here for left upper extremity cellulitis that extends down to left lateral abdomen. Her cellulitis of the arm is improved. Still have cellulitis of lateral abdominal wall. spout tender. Otherwise, she still feels fatigued. Hemoglobin dropped from 10.1 to 9.1. Will recheck later in the day. If continues to drop, she may need another transfusion. Otherwise, pending occult stool. Patient has not yet had BM. Objective Physical Examination General Exam: Positive: Alert, Cooperative Eye Exam: Positive: EOMI; Negative: Sclera icteric ENT Exam: Positive: Atraumatic Neck Exam: Positive: Supple Chest Exam: Positive: Diminished Heart Exam: Positive: Rate Normal, Regular Rhythm Abdomen Exam: Positive: Normal bowel sounds, Soft, Tenderness (were the rash was located) Extremity Exam: Positive: Edema (bilateral pitting edema) Neuro Exam: Positive: Normal Speech, Cranial Nerves 3-12 NL Psych Exam: Positive: Mental status NL, Mood NL Assessment /Plan Assessment Mrs. Saucedo is a 65 year old female with anti-trypsin deficiency with cirrhosis and COPD who is here for left upper extremity cellulitis that extends down to left lateral abdomen. She has a history of MRSA infection. Patient will be started on IV vancomycin. Otherwise, patient exhibits iron deficiency anemia with iron at 20 and ferritin at 21. Since patient has infection, will hold off on IV iron, but patient may benefit from IV iron in the future. Patient so far has had 2u pRBC Plan/VTE VTE Prophylaxis Ordered?: Yes Plan 1. Left upper extremity extensive cellulitis -Extends down from left arm to left breast, left lateral chest wall, and left l ateral abdominal wall -Tender, hot, and erythematous -History of MRSA in past -Vancomycin day 3 2. Pancytopenia -Chronic -Follow with heme/onc outpatient -Monitor 3. Iron deficiency anemia -Iron 20, Ferritin 21 -Hemoglobin has been dropping -Transfuse 2u pRBC -Occult stool pending. No BM to produce sample 4. 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 Chronic hypoxic respiratory failure -Chronically on 2L 7. Neuropathy -Continue gabapentin 8. Hypothyroidism -Continue levothyroxine 9. HFpEF -Stable -Continue Torsemide and supplemental KCL 10. Anxiety/Depression -Continue Venlafaxine 11. GERD -Continue pantoprazole 12. DVT ppx -SCD and TEDs -Of note, patient was not on Lovenox yesterday or today Disposition: Pending clinical improvement in cellulitis and stability of H&H. Will need an occult stool to look for GI bleed, but may be unlikely as patient has not yet had a bowel movement. Will add on Colace and Miralax to help with BM VS, I&O, 24H, Fishbone Vital Signs/I&O Vital Signs Date Time Temp Pulse Resp B/P (MAP) Pulse Ox O2 Delivery O2 Flow Rate FiO2 04/27/21 09:39 2.0 04/27/21 06:00 97.4 65 18 112/80 (91) 94 Nasal Cannula I&O- Last 24 Hours up to 6 AM 04/27/21 06:00 Intake Total 3635 ml Output Total 400 ml Balance 3235 ml Laboratory Data 24H LABS Laboratory Tests 2 04/26/21 17:18: Nucleated Red Blood Cells % (auto) 0.0, Immature Platelet Fraction 5.1, Vancomycin Level Trough 11.9 04/27/21 09:22: Nucleated Red Blood Cells % (auto) 0.0 CBC/BMP Laboratory Tests 04/26/21 17:18 04/27/21 09:22 Microbiology Microbiology 04/25/21 Blood Culture - Preliminary, Resulted No Growth after 48 hours. All Specime... 04/25/21 Blood Culture - Preliminary, Resulted No Growth after 48 hours. All Specime... SAVANNAH HALLMAN DO Apr 27, 2021 10:20
[2021-04-27 10:49] LABS: BLOOD UREA NITROGEN 10 MG/DL (7-18); CALCIUM LEVEL 7.2 MG/DL (8.8-10.2); CARBON DIOXIDE LEVEL 25 MEQ/L (21-32); CHLORIDE LEVEL 109 MEQ/L (98-107); CREATININE FOR GFR 0.47 MG/DL (0.55-1.30); GLOMERULAR FILTRATION RATE > 60.0 (>45); GLUCOSE, FASTING 280 MG/DL (70-100); MAGNESIUM LEVEL 1.7 MG/DL (1.8-2.4); POTASSIUM SERUM 3.7 MEQ/L (3.5-5.1); SODIUM LEVEL 138 MEQ/L (136-145); VITAMIN B12 LEVEL > 2000 PG/ML (247-911)
[2021-04-27] MEDS: NS 1,000 ML IV SCH ×2 (10:52→19:50)
[2021-04-27] MEDS: traMADol 50 MG TAB PO PRN (10:52)
[2021-04-27] MEDS ORDERED: MAG SULF 1GM/100ML (MAG RUN) 1 GM in IV 1 EA IV ONE (12:00)
[2021-04-27 14:00] VITALS: BP 108/54
[2021-04-27] MEDS ORDERED: NS 1,000 ML IV ONE (14:50)
[2021-04-27] MEDS: TORSEMIDE 20 MG TAB PO SCH (15:00)
[2021-04-27 17:45] LABS: BASO % 0.5 % (0.0-1.0); EOS # 0.2 10^3/uL (0.0-0.5); EOS % 10.6 % (0.0-3.0); HEMATOCRIT 32.5 % (36.0-47.0); HEMOGLOBIN 9.5 g/dl (12.0-15.5); LYMPH # 0.5 10^3/uL (1.5-5.0); LYMPH % 22.2 % (24.0-44.0); MEAN CORPUSCULAR HGB CONC 29.2 g/dl (32.0-36.5); MEAN CORPUSCULAR VOLUME 99.1 fl (80.0-96.0); MONO # 0.2 10^3/uL (0.0-0.8); MONO % 9.7 % (2.0-8.0); NEUTROPHILS # 1.2 10^3/uL (1.5-8.5); RED BLOOD COUNT 3.28 10^6/uL (4.00-5.40); WHITE BLOOD COUNT 2.1 10^3/uL (4.0-10.0)
[2021-04-27 18:22] LABS: PLATELET COUNT, AUTOMATED 43 10^3/uL (150-450)
[2021-04-27 22:00] VITALS: BP 98/44
[2021-04-27] MEDS: POTASSIUM CHLORIDE 10 MEQ SR TABLET PO SCH (22:20)
[2021-04-27] MEDS: traZODone 50 MG TAB PO SCH (23:27)
[2021-04-28] MEDS: LEVOTHYROXINE 88MCG TABLET (0.088 MG) PO SCH (05:26)
[2021-04-28] MEDS: VANCOMYCIN HCL 1,000 MG, VIAL MATE ADAPTER 1 EACH in NS 250 ML IV SCH (05:26)
[2021-04-28 06:00] VITALS: BP 92/63
[2021-04-28] MEDS ORDERED: NS 1,000 ML IV ONE (07:55)
[2021-04-28] MEDS: POLYVINYL ALCOHOL OPHTH SOLN 15 ML(LIQUITEARS) OU SCH ×3 (08:02→23:04)
[2021-04-28] MEDS: VENLAFAXINE **XR** 75MG CAPSULE PO SCH ×2 (08:02→23:05)
[2021-04-28] MEDS: tiZANidine 4 MG TAB PO SCH ×3 (08:02→23:05)
[2021-04-28] MEDS: PANTOPRAZOLE 40MG TAB (PROTONIX) PO SCH ×2 (08:02→23:05)
[2021-04-28] MEDS: CYANOCOBALAMIN 500 MCG TAB PO SCH (08:02)
[2021-04-28] MEDS: GABAPENTIN 400MG CAP PO SCH ×3 (08:03→23:05)
[2021-04-28] MEDS: DOXYCYCLINE HYCLATE 100MG TABLET PO SCH ×2 (08:11→23:06)
[2021-04-28] MEDS: DOCUSATE SODIUM 100MG CAPSULE PO SCH ×2 (08:12→21:00)
[2021-04-28] MEDS: TORSEMIDE 20 MG TAB PO SCH (08:13)
[2021-04-28 09:27] LABS: HEMOGLOBIN 9.1 g/dl (12.0-15.5); MEAN CORPUSCULAR HGB CONC 29.4 g/dl (32.0-36.5); MEAN CORPUSCULAR VOLUME 98.7 fl (80.0-96.0); RED BLOOD COUNT 3.14 10^6/uL (4.00-5.40)
[2021-04-28 09:30] LABS: PLATELET COUNT, AUTOMATED 45 10^3/uL (150-450)
[2021-04-28 09:57] LABS: BLOOD UREA NITROGEN 13 MG/DL (7-18); CALCIUM LEVEL 8.3 MG/DL (8.8-10.2); CARBON DIOXIDE LEVEL 28 MEQ/L (21-32); CHLORIDE LEVEL 113 MEQ/L (98-107); GLOMERULAR FILTRATION RATE > 60.0 (>45); GLUCOSE, FASTING 92 MG/DL (70-100); POTASSIUM SERUM 3.8 MEQ/L (3.5-5.1); SODIUM LEVEL 143 MEQ/L (136-145)
[2021-04-28] MEDS ORDERED: LIDOCAINE 1% MDV 20ML VIAL As Ordered ONE (10:07)
--- NOTE | 2021-04-28 12:02 | IPNPDOC ---
Subjective Date Seen The patient was seen on 04/28/21. Subjective Chief Complaint/HPI Mrs. Saucedo is a 65 year old female with anti-trypsin deficiency with cirrhosis and COPD who is here for left upper extremity cellulitis that extends down to left lateral abdomen. I had female nurse radioactivity technician with me, left arm cellulitis improved, but still present on left breast and left lateral abdomen. Patient reports mass in left breast that moved. With female nurse radioactivity technician present, I did not palpate a mass, but there was some hardness. It is still erythematous. Otherwise, patient has poor access. patient does not have any renal dysfunction. Will place midline. Switch vancomycin to doxycycline. Objective Physical Examination General Exam: Positive: Alert, Cooperative Eye Exam: Positive: EOMI; Negative: Sclera icteric ENT Exam: Positive: Atraumatic Neck Exam: Positive: Supple Chest Exam: Positive: Diminished Heart Exam: Positive: Rate Normal, Regular Rhythm Abdomen Exam: Positive: Normal bowel sounds, Soft, Tenderness (were the rash was located) Extremity Exam: Positive: Edema (bilateral pitting edema) Neuro Exam: Positive: Normal Speech, Cranial Nerves 3-12 NL Psych Exam: Positive: Mental status NL, Mood NL Assessment /Plan Assessment Mrs. Saucedo is a 65 year old female with anti-trypsin deficiency with cirrhosis and COPD who is here for left upper extremity cellulitis that extends down to left lateral abdomen. She has a history of MRSA infection. Patient will be started on IV vancomycin. Otherwise, patient exhibits iron deficiency anemia with iron at 20 and ferritin at 21. Since patient has infection, will hold off on IV iron, but patient may benefit from IV iron in the future. Patient so far has had 2u pRBC Plan/VTE VTE Prophylaxis Ordered?: Yes Plan 1. Left upper extremity extensive cellulitis -Extends down from left arm to left breast, left lateral chest wall, and left lateral abdominal wall -Tender, hot, and erythematous -History of MRSA in past -Vancomycin switch to doxycycline day 4 2. Pancytopenia -Chronic -Follow with heme/onc outpatient -Monitor 3. Iron deficiency anemia -Iron 20, Ferritin 21 -Hemoglobin has been dropping -Transfuse 2u pRBC -Occult stool pending. No BM to produce sample -H&H stable 4. 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 Chronic hypoxic respiratory failure -Chronically on 2L 7. Neuropathy -Continue gabapentin 8. Hypothyroidism -Continue levothyroxine 9. HFpEF -Stable -Continue Torsemide and supplemental KCL 10. Anxiety/Depression -Continue Venlafaxine 11. GERD -Continue pantoprazole 12. DVT ppx -SCD and TEDs -Of note, patient was not on Lovenox yesterday or today Disposition: Pending clinical improvement in cellulitis and breast US. VS, I&O, 24H, Fishbone Vital Signs/I&O Vital Signs Date Time Temp Pulse Resp B/P (MAP) Pulse Ox O2 Delivery O2 Flow Rate FiO2 04/28/21 11:25 2.0 04/28/21 10:54 96.7 57 20 98 Nasal Cannula 04/28/21 06:00 92/63 (73) I&O- Last 24 Hours up to 6 AM 04/28/21 05:59 Intake Total 2860 ml Output Total 200 ml Balance 2660 ml Laboratory Data 24H LABS Laboratory Tests 2 04/27/21 17:22: Immature Granulocyte % (Auto) 0.0, Neutrophils (%) (Auto) 57.0, Lymphocytes (%) (Auto) 22.2L, Monocytes (%) (Auto) 9.7H, Eosinophils (%) (Auto) 10.6H, Basophils (%) (Auto) 0.5, Neutrophils # (Auto) 1.2L, Lymphocytes # (Auto) 0.5L, Monocytes # (Auto) 0.2, Eosinophils # (Auto) 0.2, Basophils # (Auto) 0.0, Nucleated Red Blood Cells % (auto) 0.0, Immature Platelet Fraction 7.2, Vancomycin Level Trough 16.1 04/28/21 08:58: Nucleated Red Blood Cells % (auto) 0.0, Anion Gap 2L, Glomerular Filtration Rate > 60.0, Calcium Level 8.3#L, Magnesium Level 2.0, Thyroid Stimulating Hormone (TSH) 1.240 CBC/BMP Laboratory Tests 04/27/21 17:22 04/28/21 08:58 Microbiology Microbiology 04/25/21 Blood Culture - Preliminary, Resulted No Growth after 72 hours. All specime... 04/25/21 Blood Culture - Preliminary, Resulted No Growth after 72 hours. All specime... SAVANNAH HALLMAN DO Apr 28, 2021 12:02
[2021-04-28] MEDS: SODIUM CHLORIDE 0.9% INJ 10 ML SYR IV SCH (12:59)
--- NOTE | 2021-04-28 13:42 | REP ---
INDICATION: Assess for abscess COMPARISON: None the prior left breast ultrasound examination was obtained from the 9 to 10 o'clock positions inclusive. TECHNIQUE: Today's left breast ultrasound exam was obtained from the 3 to 4 o'clock positions inclusive FINDINGS: There is no evidence of an abscess or other abnormality. IMPRESSION: A negative ultrasound examination does not obviate mammography if breast cancer from a mass is of clinical concern. <Electronically signed by Matty Lester > 04/28/21 [id number]
[2021-04-28 14:00] VITALS: BP 116/56
[2021-04-28] MEDS: NYSTATIN 100,000 UNITS/GM TOPICAL PWD 15 GM TOP SCH ×2 (15:00→23:04)
--- NOTE | 2021-04-28 17:24 | REP ---
INDICATION: Poor access. COMPARISON: None. TECHNIQUE: The procedure was performed under the direct supervision of Dr. Coleman. The risks and benefits of the procedure were explained to the patient and informed consent was obtained. The right basilic vein was localized using ultrasound guidance. The skin was prepped and draped in a sterile fashion. 2 mL of 1% lidocaine was used as a local anesthetic. Using ultrasound guidance the basilic vein was cannulated and a 0.018 guidewire was inserted. The needle was removed and a 5.5 Pakistani dilator and peel-away sheath was inserted over the guide wire. A 5.5 Pakistani dual lumen catheter was left at a length of 16.5 cm. The dilator was removed and the catheter was inserted over the guide wire. The peel-away sheath was removed and the catheter was flushed with heparinized saline as per Hospital protocol. The catheter was affixed to the skin and a sterile dressing was applied. Estimated blood loss: Less than 1 mL The patient tolerated the procedure well and there were no immediate complications. FINDINGS: None IMPRESSION: Midline catheter insertion right basilic vein. <Electronically signed by Gonzalez Mahajan > 04/28/21 1534 <Electronically signed by Alejandro Coleman > 04/28/21 [id number]
[2021-04-28 22:00] VITALS: BP 107/55
[2021-04-28] MEDS: traZODone 50 MG TAB PO SCH (23:04)
[2021-04-28] MEDS: NS 1,000 ML IV SCH (23:04)
[2021-04-28] MEDS: POTASSIUM CHLORIDE 10 MEQ SR TABLET PO SCH (23:05)
[2021-04-29] MEDS: NS 1,000 ML IV SCH ×2 (02:00→08:57)
[2021-04-29 06:00] VITALS: BP 91/43
[2021-04-29] MEDS: LEVOTHYROXINE 88MCG TABLET (0.088 MG) PO SCH (06:24)
[2021-04-29 06:59] LABS: HEMATOCRIT 30.7 % (36.0-47.0); MEAN CORPUSCULAR HGB CONC 29.3 g/dl (32.0-36.5)
[2021-04-29 07:00] LABS: PLATELET COUNT, AUTOMATED 45 10^3/uL (150-450)
[2021-04-29 07:23] LABS: BLOOD UREA NITROGEN 15 MG/DL (7-18); CARBON DIOXIDE LEVEL 28 MEQ/L (21-32); CHLORIDE LEVEL 117 MEQ/L (98-107); GLOMERULAR FILTRATION RATE > 60.0 (>45); GLUCOSE, FASTING 88 MG/DL (70-100); POTASSIUM SERUM 4.2 MEQ/L (3.5-5.1); SODIUM LEVEL 145 MEQ/L (136-145)
[2021-04-29] MEDS: DOXYCYCLINE HYCLATE 100MG TABLET PO SCH (08:57)
[2021-04-29] MEDS: VENLAFAXINE **XR** 75MG CAPSULE PO SCH ×2 (08:57→21:26)
[2021-04-29] MEDS: GABAPENTIN 400MG CAP PO SCH ×3 (08:57→21:29)
[2021-04-29] MEDS: TORSEMIDE 20 MG TAB PO SCH (08:58)
[2021-04-29] MEDS: PANTOPRAZOLE 40MG TAB (PROTONIX) PO SCH ×2 (08:58→21:27)
[2021-04-29] MEDS: CYANOCOBALAMIN 500 MCG TAB PO SCH (08:58)
[2021-04-29] MEDS: tiZANidine 4 MG TAB PO SCH ×3 (08:58→21:27)
[2021-04-29] MEDS: DOCUSATE SODIUM 100MG CAPSULE PO SCH ×2 (08:58→21:26)
[2021-04-29] MEDS: NYSTATIN 100,000 UNITS/GM TOPICAL PWD 15 GM TOP SCH ×2 (08:59→21:31)
[2021-04-29] MEDS: POLYVINYL ALCOHOL OPHTH SOLN 15 ML(LIQUITEARS) OU SCH ×3 (08:59→21:31)
[2021-04-29] MEDS: SENNA 8.6 MG TAB (SENOKOT) PO SCH ×2 (09:00→21:27)
[2021-04-29] MEDS: MIRALAX *UNIT DOSE* 17GM PACKET PO SCH (09:00)
[2021-04-29 09:10] VITALS: BP 138/64
[2021-04-29 10:55] LABS: VANCOMYCIN RANDOM 12.5 UG/ML
[2021-04-29] MEDS ORDERED: VANCOMYCIN HCL 1,000 MG, VIAL MATE ADAPTER 1 EACH in NS 250 ML IV SCH (11:00)
[2021-04-29] MEDS: SODIUM CHLORIDE 0.9% INJ 10 ML SYR IV SCH (11:25)
--- NOTE | 2021-04-29 11:32 | IPNPDOC ---
Subjective Date Seen The patient was seen on 04/29/21. Subjective Chief Complaint/HPI Mrs. Saucedo is a 65 year old female with anti-trypsin deficiency with cirrhosis and COPD who is here for left upper extremity cellulitis that extends down to left lateral abdomen. This morning, she denies any chest pain or dyspnea, but still has pain in the left lateral abdomen. Says the breast rash and abdominal rash is still there. Repeat US of left breast was negative for mass. Will switch her back to IV vancomycin now that we have IV access through midline. Objective Physical Examination General Exam: Positive: Alert, Cooperative Eye Exam: Positive: EOMI; Negative: Sclera icteric ENT Exam: Positive: Atraumatic Neck Exam: Positive: Supple Chest Exam: Positive: Diminished Heart Exam: Positive: Rate Normal, Regular Rhythm Abdomen Exam: Positive: Normal bowel sounds, Soft, Tenderness (were the rash was located) Extremity Exam: Positive: Edema (bilateral pitting edema) Neuro Exam: Positive: Normal Speech, Cranial Nerves 3-12 NL Psych Exam: Positive: Mental status NL, Mood NL Assessment /Plan Assessment Mrs. Saucedo is a 65 year old female with anti-trypsin deficiency with cirrhosis and COPD who is here for left upper extremity cellulitis that extends down to left lateral abdomen. She has a history of MRSA infection. Patient will be on IV vancomycin. Otherwise, patient exhibits iron deficiency anemia with iron at 20 and ferritin at 21. Since patient has infection, will hold off on IV iron, but patient may benefit from IV iron in the future. Patient so far has had 2u pRBC Plan/VTE VTE Prophylaxis Ordered?: Yes Plan 1. Left upper extremity extensive cellulitis -Extends down from left arm to left breast, left lateral chest wall, and left lateral abdominal wall -Tender, hot, and erythematous -History of MRSA in past -Switched back to Vancomycin. Will count this as day 4 again due to going back to vancomycin. 2. Pancytopenia -Chronic -Follow with heme/onc outpatient -Monitor 3. Iron deficiency anemia -Iron 20, Ferritin 21 -Hemoglobin has been dropping -Transfuse 2u pRBC -Occult stool pending. No BM to produce sample -H&H stable 4. 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 Chronic hypoxic respiratory failure -Chronically on 2L 7. Neuropathy -Continue gabapentin 8. Hypothyroidism -Continue levothyroxine 9. HFpEF -Stable -Continue Torsemide and supplemental KCL 10. Anxiety/Depression -Continue Venlafaxine 11. GERD -Continue pantoprazole 12. Constipation -Continue Colace. Scheduled Svetlana-Lax -Added on Senna today 13. DVT ppx -SCD and TEDs due to low platelets Disposition: Pending clinical improvement in cellulitis VS, I&O, 24H, Fishbone Vital Signs/I&O Vital Signs Date Time Temp Pulse Resp B/P (MAP) Pulse Ox O2 Delivery O2 Flow Rate FiO2 04/29/21 09:10 138/64 (88) 04/29/21 06:00 98.3 58 17 92 Nasal Cannula 04/28/21 20:15 2.0 I&O- Last 24 Hours up to 6 AM0 04/29/21 05:59 Intake Total 1030 ml Output Total 625 ml Balance 405 ml Laboratory Data 24H LABS Laboratory Tests 2 04/29/21 06:38: Nucleated Red Blood Cells % (auto) 1.0H, Immature Platelet Fraction 6.1, Anion Gap 0L, Glomerular Filtration Rate > 60.0, Calcium Level 8.0L, Random Vancomycin Level 12.5 CBC/BMP Laboratory Tests 04/29/21 06:38 Microbiology Microbiology 04/25/21 Blood Culture - Preliminary, Resulted No Growth after 72 hours. All specime... 04/25/21 Blood Culture - Preliminary, Resulted No Growth after 72 hours. All specime... SAVANNAH HALLMAN DO Apr 29, 2021 11:32
[2021-04-29 14:00] VITALS: BP 142/68
[2021-04-29] MEDS: POTASSIUM CHLORIDE 10 MEQ SR TABLET PO SCH (21:26)
[2021-04-29] MEDS: traZODone 50 MG TAB PO SCH (21:27)
[2021-04-29 22:00] VITALS: BP 131/49
[2021-04-30] MEDS: LEVOTHYROXINE 88MCG TABLET (0.088 MG) PO SCH (05:59)
[2021-04-30 06:00] VITALS: BP 102/39
[2021-04-30 06:53] LABS: HEMATOCRIT 31.2 % (36.0-47.0); HEMOGLOBIN 9.2 g/dl (12.0-15.5); MEAN CORPUSCULAR HEMOGLOBIN 29.1 pg (27.0-33.0); MEAN CORPUSCULAR HGB CONC 29.5 g/dl (32.0-36.5); MEAN CORPUSCULAR VOLUME 98.7 fl (80.0-96.0); RED BLOOD COUNT 3.16 10^6/uL (4.00-5.40); WHITE BLOOD COUNT 1.7 10^3/uL (4.0-10.0)
[2021-04-30 07:01] LABS: PLATELET COUNT, AUTOMATED 47 10^3/uL (150-450)
[2021-04-30 07:09] LABS: BLOOD UREA NITROGEN 17 MG/DL (7-18); C REACTIVE PROTEIN QUANTITATIV 0.33 MG/DL (0.00-0.30); CALCIUM LEVEL 7.9 MG/DL (8.8-10.2); CARBON DIOXIDE LEVEL 27 MEQ/L (21-32); CHLORIDE LEVEL 116 MEQ/L (98-107); CREATININE FOR GFR 0.52 MG/DL (0.55-1.30); GLOMERULAR FILTRATION RATE > 60.0 (>45); GLUCOSE, FASTING 83 MG/DL (70-100); POTASSIUM SERUM 4.1 MEQ/L (3.5-5.1); SODIUM LEVEL 146 MEQ/L (136-145)
[2021-04-30] MEDS: VENLAFAXINE **XR** 75MG CAPSULE PO SCH ×2 (08:31→23:57)
[2021-04-30 08:32] LABS: ERYTHROCYTE SEDIMENTATION RATE 3 mm/hr (0-30)
[2021-04-30] MEDS: DOCUSATE SODIUM 100MG CAPSULE PO SCH ×2 (08:32→23:57)
[2021-04-30] MEDS: tiZANidine 4 MG TAB PO SCH ×3 (08:32→23:58)
[2021-04-30] MEDS: CYANOCOBALAMIN 500 MCG TAB PO SCH (08:32)
[2021-04-30] MEDS: PANTOPRAZOLE 40MG TAB (PROTONIX) PO SCH ×2 (08:32→23:57)
[2021-04-30] MEDS: GABAPENTIN 400MG CAP PO SCH ×3 (08:32→23:58)
[2021-04-30] MEDS: NYSTATIN 100,000 UNITS/GM TOPICAL PWD 15 GM TOP SCH ×2 (08:33→23:56)
[2021-04-30] MEDS: POLYVINYL ALCOHOL OPHTH SOLN 15 ML(LIQUITEARS) OU SCH ×3 (08:33→23:56)
[2021-04-30] MEDS: TORSEMIDE 20 MG TAB PO SCH (08:38)
[2021-04-30] MEDS: MIRALAX *UNIT DOSE* 17GM PACKET PO SCH (08:38)
[2021-04-30] MEDS: traMADol 50 MG TAB PO PRN (08:38)
[2021-04-30] MEDS: NS 1,000 ML IV SCH (08:38)
[2021-04-30] MEDS: SENNA 8.6 MG TAB (SENOKOT) PO SCH ×2 (08:39→21:00)
[2021-04-30] MEDS: VANCOMYCIN HCL 1,000 MG, VIAL MATE ADAPTER 1 EACH in NS 250 ML IV SCH ×2 (11:36→23:56)
[2021-04-30] MEDS: SODIUM CHLORIDE 0.9% INJ 10 ML SYR IV SCH (11:36)
--- NOTE | 2021-04-30 12:43 | IPNPDOC ---
Subjective Date Seen The patient was seen on 04/30/21. Subjective Chief Complaint/HPI Mrs. Saucedo is a 65 year old female with anti-trypsin deficiency with cirrhosis and COPD who is here for left upper extremity cellulitis that extends down to left lateral abdomen. Patient was seen this morning. She complains of right breast hardness and she feels that it is moving. With a female nurse refractory mixer present, We rolled the patient to the right side to look at her left breast and left abdomen. The erythema has greatly improved. I don't feels a hardness. The last time she had a mammogram was over 2 years. I recommended that she follow up with her outpatient PCP for a mammogram. Otherwise, will continue IV vancomycin for today. Objective Physical Examination General Exam: Positive: Alert, Cooperative Eye Exam: Positive: EOMI; Negative: Sclera icteric ENT Exam: Positive: Atraumatic Neck Exam: Positive: Supple Chest Exam: Positive: Diminished Heart Exam: Positive: Rate Normal, Regular Rhythm Abdomen Exam: Positive: Normal bowel sounds, Soft, Tenderness (were the rash was located) Extremity Exam: Positive: Edema (bilateral pitting edema) Neuro Exam: Positive: Normal Speech, Cranial Nerves 3-12 NL Psych Exam: Positive: Mental status NL, Mood NL Assessment /Plan Assessment Mrs. Saucedo is a 65 year old female with anti-trypsin deficiency with cirrhosis and COPD who is here for left upper extremity cellulitis that extends down to left lateral abdomen. She has a history of MRSA infection. Patient will be on IV vancomycin. Otherwise, patient exhibits iron deficiency anemia with iron at 20 and ferritin at 21. Since patient has infection, will hold off on IV iron, but patient may benefit from IV iron in the future. Patient so far has had 2u pRBC Plan/VTE VTE Prophylaxis Ordered?: Yes Plan 1. Left upper extremity extensive cellulitis -Extends down from left arm to left breast, left lateral chest wall, and left lateral abdominal wall -Tender, hot, and erythematous -History of MRSA in past -Today the rash of left breast and left abdomen looks much better. Anticipate one more day of IV antibiotics -Vancomycin day 5 2. Pancytopenia -Chronic -Follow with heme/onc outpatient -Monitor 3. Iron deficiency anemia -Iron 20, Ferritin 21 -Hemoglobin has been dropping -Transfuse 2u pRBC -Occult stool pending. No BM to produce sample -H&H stable 4. 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 Chronic hypoxic respiratory failure -Chronically on 2L 7. Neuropathy -Continue gabapentin 8. Hypothyroidism -Continue levothyroxine 9. HFpEF -Stable -Continue Torsemide and supplemental KCL 10. Anxiety/Depression -Continue Venlafaxine 11. GERD -Continue pantoprazole 12. Constipation -Continue Colace. Scheduled Svetlana-Lax -Added on Senna today 13. DVT ppx -SCD and TEDs due to low platelets Disposition: Pending clinical improvement in cellulitis. May need one more day of antibiotics before switching to orals VS, I&O, 24H, Fishbone Vital Signs/I&O Vital Signs Date Time Temp Pulse Resp B/P (MAP) Pulse Ox O2 Delivery O2 Flow Rate FiO2 04/30/21 09:08 17 04/30/21 06:00 97.2 59 102/39 (60) 97 Nasal Cannula 2.0 I&O- Last 24 Hours up to 6 AM 04/30/21 06:00 Intake Total 3130 ml Output Total 1800 ml Balance 1330 ml Laboratory Data 24H LABS Laboratory Tests 2 04/30/21 06:17: Nucleated Red Blood Cells % (auto) 0.0, Erythrocyte Sedimentation Rate 3, Anion Gap 3L, Glomerular Filtration Rate > 60.0, Calcium Level 7.9L, C-Reactive Protein, Quantitative 0.33H 04/30/21 10:00: Vancomycin Level Trough 9.0L CBC/BMP Laboratory Tests 04/30/21 06:17 Microbiology Microbiology 04/25/21 Blood Culture - Final, Complete NO GROWTH AFTER 5 DAYS 04/25/21 Blood Culture - Final, Complete NO GROWTH AFTER 5 DAYS SAVANNAH HALLMAN DO Apr 30, 2021 12:43
[2021-04-30 14:00] VITALS: BP 114/47
[2021-04-30 22:00] VITALS: BP 109/40
[2021-04-30] MEDS: POTASSIUM CHLORIDE 10 MEQ SR TABLET PO SCH (23:57)
[2021-04-30] MEDS: traZODone 50 MG TAB PO SCH (23:58)
[2021-05-01] MEDS: SODIUM CHLORIDE 0.9% INJ 10 ML SYR IV PRN (01:27)
[2021-05-01] MEDS: LEVOTHYROXINE 88MCG TABLET (0.088 MG) PO SCH (05:33)
[2021-05-01 06:00] VITALS: BP 108/42
[2021-05-01 06:36] LABS: HEMATOCRIT 29.6 % (36.0-47.0); HEMOGLOBIN 8.8 g/dl (12.0-15.5); MEAN CORPUSCULAR HEMOGLOBIN 29.4 pg (27.0-33.0); MEAN CORPUSCULAR HGB CONC 29.7 g/dl (32.0-36.5); RED BLOOD COUNT 2.99 10^6/uL (4.00-5.40); WHITE BLOOD COUNT 1.7 10^3/uL (4.0-10.0)
[2021-05-01 06:37] LABS: PLATELET COUNT, AUTOMATED 40 10^3/uL (150-450)
[2021-05-01 07:03] LABS: BLOOD UREA NITROGEN 17 MG/DL (7-18); CARBON DIOXIDE LEVEL 29 MEQ/L (21-32); CHLORIDE LEVEL 115 MEQ/L (98-107); CREATININE FOR GFR 0.46 MG/DL (0.55-1.30); GLOMERULAR FILTRATION RATE > 60.0 (>45); GLUCOSE, FASTING 100 MG/DL (70-100); POTASSIUM SERUM 3.8 MEQ/L (3.5-5.1); SODIUM LEVEL 144 MEQ/L (136-145)
[2021-05-01] MEDS: NS 1,000 ML IV SCH (07:50)
[2021-05-01] MEDS: MIRALAX *UNIT DOSE* 17GM PACKET PO SCH (09:00)
[2021-05-01] MEDS: SENNA 8.6 MG TAB (SENOKOT) PO SCH ×3 (09:00→21:00)
[2021-05-01] MEDS: PANTOPRAZOLE 40MG TAB (PROTONIX) PO SCH ×2 (09:51→21:45)
[2021-05-01] MEDS: TORSEMIDE 20 MG TAB PO SCH (09:51)
[2021-05-01] MEDS: DOCUSATE SODIUM 100MG CAPSULE PO SCH ×2 (09:51→21:43)
[2021-05-01] MEDS: VENLAFAXINE **XR** 75MG CAPSULE PO SCH ×2 (09:51→21:45)
[2021-05-01] MEDS: tiZANidine 4 MG TAB PO SCH ×3 (09:51→21:46)
[2021-05-01] MEDS: GABAPENTIN 400MG CAP PO SCH ×3 (09:52→21:43)
[2021-05-01] MEDS: NYSTATIN 100,000 UNITS/GM TOPICAL PWD 15 GM TOP SCH ×2 (09:52→21:47)
[2021-05-01] MEDS: POLYVINYL ALCOHOL OPHTH SOLN 15 ML(LIQUITEARS) OU SCH ×3 (09:52→21:47)
[2021-05-01] MEDS ORDERED: BACTRIM 160MG/800MG DS TAB PO ONE (10:05)
[2021-05-01] MEDS: BACTRIM 160MG/800MG DS TAB PO SCH ×2 (11:02→21:44)
[2021-05-01] MEDS: SODIUM CHLORIDE 0.9% INJ 10 ML SYR IV SCH (12:25)
[2021-05-01] MEDS: traMADol 50 MG TAB PO PRN (13:12)
[2021-05-01 14:00] VITALS: BP 133/61
--- NOTE | 2021-05-01 14:46 | IPNPDOC ---
Text Note Date of Service The patient was seen on 05/01/21. NOTE Hospitalist Progress Note Subjective: Patient was sitting upright in the bed working on some paperwork with one of the social workers when I entered the room. She reports that she has had significant improvement in the left-sided cellulitis, but she does continue to have some tenderness and very mild pinkish/erythema affecting the left side of the abdomen. Overall she is feeling better, she just recognizes that she is not completely resolved yet. Nevertheless, she is in agreements with the plan that if she does well on oral antibiotics for today and does well with physical therapy today, then she would likely be a candidate for going home tomorrow. We will work with the discharge planning team to arrange for a safe home situation. Objective: General: Awake, alert, oriented 3. Not in any acute distress. HEENT: Head normocephalic, atraumatic, sclera are nonicteric. Hearing is grossly intact to conversation. Respiratory: Clear to auscultation bilaterally with no wheezes, rales, or rhonchi. Cardiovascular: Regular rate and rhythm, with no rubs, gallops, or murmur. Abdomen: Soft, the skin is minimally tender on the left side of the abdomen, and there is a pinkish hue which is the only residual indication of her prior erythema. nondistended, no hepatosplenomegaly appreciated. Bowel sounds present. Extremities: 2+ pulses in the radial bilaterally. No evidence of clubbing or cyanosis. Assessment: 1. Left upper extremity extensive cellulitis -Extends down from left arm to left breast, left lateral chest wall, and left lateral abdominal wall -History of MRSA in past -Clinically appears improved, she only has a pinkish hue left on the left aspect of the abdomen. -Discontinue IV vancomycin -Start PO Bactrim -Recheck labs and reevaluate clinically the extent of her rash in the morning 2. Pancytopenia -Chronic -Follow with heme/onc outpatient -Monitor 3. Iron deficiency anemia -Iron 20, Ferritin 21 -Hemoglobin has been dropping -Transfuse 2u pRBC -Occult stool pending. No BM to produce sample -H&H stable 4. 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 Chronic hypoxic respiratory failure -Chronically on 2L 7. Neuropathy -Continue gabapentin 8. Hypothyroidism -Continue levothyroxine 9. HFpEF -Stable -Continue Torsemide and supplemental KCL 10. Anxiety/Depression -Continue Venlafaxine 11. GERD -Continue pantoprazole 12. Constipation -Continue Colace and senna. Scheduled Svetlana-Lax 13. DVT ppx -SCD and TEDs due to low platelets Disposition: If she remains clinically stable, labs are good in the morning, she passes physical therapy, and tolerates oral antibiotics well, then she may be a candidate for discharge in the next 24-48 hours. VS,Fishbone, I+O VS, Fishbone, I+O Laboratory Tests 05/01/21 06:12 Vital Signs Date Time Temp Pulse Resp B/P (MAP) Pulse Ox O2 Delivery O2 Flow Rate FiO2 05/01/21 13:52 17 05/01/21 06:00 97.6 63 108/42 (64) 93 Nasal Cannula 2.0 I&O- Last 24 Hours up to 6 AM 05/01/21 06:00 Intake Total 2110 ml Output Total 775 ml Balance 1335 ml ANIYA VÁZQUEZ DO May 01, 2021 14:46
[2021-05-01 18:45] VITALS: BP 115/43
[2021-05-01] MEDS ORDERED: NITROGLYCERIN 0.3 MG SUBL TAB SL PRN (19:10)
[2021-05-01] MEDS ORDERED: BENZONATATE 100 MG CAP PO PRN (19:10)
--- NOTE | 2021-05-01 19:10 | REP ---
INDICATION: chest pain COMPARISON: 11/19/2020 TECHNIQUE: Portable AP view of the chest FINDINGS: Cardiomegaly and chronic interstitial changes are appreciated. Left lower lobe opacity as well as right basilar atelectasis cannot be excluded. No pneumothorax. Skeletal structures are intact. IMPRESSION: Cardiomegaly and chronic changes. Superimposed left lower lobe opacity and right basilar atelectasis suspected. <Electronically signed by Jamar Paredes > 05/01/21 [id number]
[2021-05-01 21:05] LABS: CK-MB VALUE MASS < 1.0 NG/ML (<3.6); CPK CREATINE PHOSPHOKINASE 28 U/L (26-192); MB/CK RELATIVE INDEX 3.57 (< OR =4); TROPONIN I < 0.02 NG/ML (< 0.10)
[2021-05-01] MEDS: POTASSIUM CHLORIDE 10 MEQ SR TABLET PO SCH (21:44)
[2021-05-01] MEDS: traZODone 50 MG TAB PO SCH (21:46)
[2021-05-01 22:17] VITALS: BP 90/50
[2021-05-01 23:33] VITALS: BP 104/50
[2021-05-02] MEDS: LEVOTHYROXINE 88MCG TABLET (0.088 MG) PO SCH (05:39)
[2021-05-02 06:00] VITALS: BP 106/54
[2021-05-02 07:03] LABS: HEMATOCRIT 30.5 % (36.0-47.0); MEAN CORPUSCULAR HGB CONC 29.5 g/dl (32.0-36.5); MEAN CORPUSCULAR VOLUME 98.4 fl (80.0-96.0); WHITE BLOOD COUNT 1.9 10^3/uL (4.0-10.0)
[2021-05-02 07:34] LABS: BLOOD UREA NITROGEN 17 MG/DL (7-18); CALCIUM LEVEL 8.4 MG/DL (8.8-10.2); CARBON DIOXIDE LEVEL 25 MEQ/L (21-32); CHLORIDE LEVEL 114 MEQ/L (98-107); CREATININE FOR GFR 0.54 MG/DL (0.55-1.30); GLOMERULAR FILTRATION RATE > 60.0 (>45); GLUCOSE, FASTING 74 MG/DL (70-100); POTASSIUM SERUM 3.8 MEQ/L (3.5-5.1); SODIUM LEVEL 144 MEQ/L (136-145)
[2021-05-02 07:52] LABS: BASO % 0.5 % (0.0-1.0); EOS # 0.1 10^3/uL (0.0-0.5); EOS % 6.3 % (0.0-3.0); LYMPH # 0.5 10^3/uL (1.5-5.0); LYMPH % 25.5 % (24.0-44.0); MONO # 0.2 10^3/uL (0.0-0.8); MONO % 10.4 % (2.0-8.0); NEUTROPHILS # 1.1 10^3/uL (1.5-8.5); NEUTROPHILS % 56.8 % (36.0-66.0)
[2021-05-02 07:58] LABS: PLATELET COUNT, AUTOMATED 40 10^3/uL (150-450)
[2021-05-02] MEDS ORDERED: cefTRIAXone SOD 1 GM in D5W MINI-BAG PLUS 50 ML IV SCH (08:00)
[2021-05-02] MEDS ORDERED: AZITHROMYCIN INJ 500 MG, VIAL MATE ADAPTER 1 EACH in NS 250 ML IV SCH (09:00)
[2021-05-02] MEDS: SENNA 8.6 MG TAB (SENOKOT) PO SCH ×2 (09:00→20:49)
[2021-05-02] MEDS: MIRALAX *UNIT DOSE* 17GM PACKET PO SCH (09:00)
[2021-05-02] MEDS: TORSEMIDE 20 MG TAB PO SCH (09:01)
[2021-05-02] MEDS: PANTOPRAZOLE 40MG TAB (PROTONIX) PO SCH ×2 (09:01→20:49)
[2021-05-02] MEDS: DOCUSATE SODIUM 100MG CAPSULE PO SCH ×2 (09:01→20:48)
[2021-05-02] MEDS: tiZANidine 4 MG TAB PO SCH ×3 (09:01→20:49)
[2021-05-02] MEDS: BACTRIM 160MG/800MG DS TAB PO SCH ×2 (09:01→20:50)
[2021-05-02] MEDS: GABAPENTIN 400MG CAP PO SCH ×3 (09:01→20:47)
[2021-05-02] MEDS: VENLAFAXINE **XR** 75MG CAPSULE PO SCH ×2 (09:01→20:49)
[2021-05-02] MEDS: POLYVINYL ALCOHOL OPHTH SOLN 15 ML(LIQUITEARS) OU SCH ×3 (09:03→20:51)
[2021-05-02] MEDS: NYSTATIN 100,000 UNITS/GM TOPICAL PWD 15 GM TOP SCH ×2 (09:04→20:51)
[2021-05-02] MEDS: SODIUM CHLORIDE 0.9% INJ 10 ML SYR IV PRN (11:24)
[2021-05-02] MEDS: SODIUM CHLORIDE 0.9% INJ 10 ML SYR IV SCH (11:24)
[2021-05-02 14:00] VITALS: BP 108/50
[2021-05-02] MEDS: traMADol 50 MG TAB PO PRN (14:00)
--- NOTE | 2021-05-02 17:26 | IPNPDOC ---
Text Note Date of Service The patient was seen on 05/02/21. NOTE Hospitalist Progress Note Subjective: She did have an episode of chest discomfort yesterday evening. She described it as a pressure that spread up to her left shoulder. EKG, cardiac markers, chest x-ray were all performed. There was some questionable bibasilar atelectasis and left lower lobe opacity that was felt as perhaps the beginning of pneumonia, therefore she was started on ceftriaxone and azithromycin last night in addition to the Bactrim that she is taking for cellulitis. In conversation with her this morning though it appears that her chest discomfort seemed to subside shortly after my evaluation last night, and she has not had any issues since. This cer tainly does not sound like pneumonia, therefore I will discontinue the ceftriaxone and a azithromycin at this time. We will continue with Bactrim for treatment of her cellulitis. In regard to her cellulitis, and it seems that it is slowly improving still, therefore she is tolerating the oral antibiotics quite well. She reports that she does not have anybody at home that will be able to assist taking care of her, therefore discharge would not be safe at this time, we will try to prepare and anticipate for discharge tomorrow if she continues to be medically stable and if her home situation is safe and appropriate for discharge at that time. Objective: General: Awake, alert, oriented 3. Not in any acute distress. HEENT: Head normocephalic, atraumatic, sclera are nonicteric. Hearing is grossly intact to conversation. Respiratory: Clear to auscultation bilaterally with no wheezes, rales, or rhonchi. Cardiovascular: Regular rate and rhythm, with no rubs, gallops, or murmur. Abdomen: Soft, the skin is minimally tender on the left side of the abdomen, rash appears to be improving. Extremities: 2+ pulses in the radial bilaterally. No evidence of clubbing or cyanosis. Only mild pinkish hue noted on the left shoulder and arm, rashe is essentially resolved in this region. Assessment: 1. 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 Pancytopenia -Chronic -Follow with heme/onc outpatient -Monitor 3. Iron deficiency anemia -Iron 20, Ferritin 21 -Hemoglobin has been dropping -Transfuse 2u pRBC -Occult stool pending. No BM to produce sample -H&H stable 4. 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 Chronic hypoxic respiratory failure -Chronically on 2L which is her home dose. 7. Neuropathy -Continue gabapentin 8. Hypothyroidism -Continue levothyroxine 9. HFpEF -Stable -Continue Torsemide and supplemental KCL 10. Anxiety/Depression -Continue Venlafaxine 11. GERD -Continue pantoprazole 12. Constipation -Continue Colace and senna. Scheduled Svetlana-Lax 13. DVT ppx -SCD and TEDs due to low platelets Disposition: If she continues to do well, would anticipate discharge tomorrow. May need home with home services. VS,Fishbone, I+O VS, Fishbone, I+O Laboratory Tests 05/02/21 06:03 Vital Signs Date Time Temp Pulse Resp B/P (MAP) Pulse Ox O2 Delivery O2 Flow Rate FiO2 05/02/21 14:30 18 05/02/21 14:00 98.2 63 108/50 (69) 98 Nasal Cannula 2.0 I&O- Last 24 Hours up to 6 AM 05/02/21 06:00 Intake Total 960 ml Output Total 0 ml Balance 960 ml ANIYA VÁZQUEZ DO May 02, 2021 17:26
[2021-05-02] MEDS: traZODone 50 MG TAB PO SCH (20:48)
[2021-05-02] MEDS: POTASSIUM CHLORIDE 10 MEQ SR TABLET PO SCH (20:50)
[2021-05-02 22:00] VITALS: BP 111/53
[2021-05-03] MEDS: LEVOTHYROXINE 88MCG TABLET (0.088 MG) PO SCH (05:31)
[2021-05-03 06:00] VITALS: BP 124/57
[2021-05-03 07:15] LABS: HEMATOCRIT 32.3 % (36.0-47.0); HEMOGLOBIN 9.6 g/dl (12.0-15.5); MEAN CORPUSCULAR HEMOGLOBIN 28.8 pg (27.0-33.0); MEAN CORPUSCULAR HGB CONC 29.7 g/dl (32.0-36.5); RED BLOOD COUNT 3.33 10^6/uL (4.00-5.40); WHITE BLOOD COUNT 2.1 10^3/uL (4.0-10.0)
[2021-05-03 07:19] LABS: PLATELET COUNT, AUTOMATED 40 10^3/uL (150-450)
[2021-05-03 07:23] LABS: BLOOD UREA NITROGEN 17 MG/DL (7-18); CALCIUM LEVEL 8.3 MG/DL (8.8-10.2); CARBON DIOXIDE LEVEL 29 MEQ/L (21-32); CHLORIDE LEVEL 111 MEQ/L (98-107); CREATININE FOR GFR 0.66 MG/DL (0.55-1.30); GLOMERULAR FILTRATION RATE > 60.0 (>45); GLUCOSE, FASTING 73 MG/DL (70-100); POTASSIUM SERUM 3.9 MEQ/L (3.5-5.1); SODIUM LEVEL 143 MEQ/L (136-145)
[2021-05-03] MEDS ORDERED: BACTDSTA PO (09:03)
[2021-05-03] MEDS: MIRALAX *UNIT DOSE* 17GM PACKET PO SCH ×2 (10:05→10:10)
[2021-05-03] MEDS: VENLAFAXINE **XR** 75MG CAPSULE PO SCH (10:06)
[2021-05-03] MEDS: TORSEMIDE 20 MG TAB PO SCH ×2 (10:06→10:08)
[2021-05-03] MEDS: GABAPENTIN 400MG CAP PO SCH (10:07)
[2021-05-03] MEDS: tiZANidine 4 MG TAB PO SCH (10:07)
[2021-05-03] MEDS: SENNA 8.6 MG TAB (SENOKOT) PO SCH ×2 (10:07→10:10)
[2021-05-03] MEDS: DOCUSATE SODIUM 100MG CAPSULE PO SCH (10:07)
[2021-05-03] MEDS: BACTRIM 160MG/800MG DS TAB PO SCH (10:07)
[2021-05-03] MEDS: PANTOPRAZOLE 40MG TAB (PROTONIX) PO SCH (10:07)
[2021-05-03] MEDS: POLYVINYL ALCOHOL OPHTH SOLN 15 ML(LIQUITEARS) OU SCH (10:08)
[2021-05-03] MEDS: NYSTATIN 100,000 UNITS/GM TOPICAL PWD 15 GM TOP SCH (10:08)
[2021-05-03 14:00] VITALS: BP 90/48
[2021-05-03 14:34] VITALS: BP 102/50
[2021-05-03 15:15] VITALS: BP 110/58
--- NOTE | 2021-05-03 21:10 | DS.PDOC ---
Discharge Summary General Date of Admission Apr 25, 2021 at 09:30 Date of Discharge 05/03/2021 Discharge Summary PRIMARY CARE PHYSICIAN: Judi Reynolds MD ATTENDING AT TIME OF DISCHARGE: Dr. Aniya Vázquez, DISCHARGE DIAGNOS(E)S: -Left upper extremity cellulitis extending into the left shoulder, breast, lateral chest wall, and left lateral abdominal wall -Chronic pancytopenia for which she follows with hematology/oncology -Iron deficiency anemia -Liver cirrhosis secondary to alpha 1 antitrypsin deficiency -COPD also secondary to alpha-1 antitrypsin deficiency -Chronic hypoxic respiratory failure requiring 2 L nasal cannula at baseline -Neuropathy -Hypothyroidism -Heart failure with preserved ejection fracture, not in acute decompensation -Anxiety -Depression -GERD -Chronic issues with constipation HPI & HOSPITAL COURSE: Patient presented to the hospital with significant and extensive left upper extremity cellulitis extending onto her torso and abdomen. No source/etiology could be identified. She was initially treated with IV vancomycin empirically, however IV access was lost on day 3-4, therefore she was switched over to oral doxycycline. In the interim that it took to place a midline it appeared that the doxycycline was not effective, therefore she was switched back to vancomycin IV. Over the next few days she showed significant clinical improvement, and because she has an allergy to penicillins as she was switched over to Bactrim (she also has a history of MRSA, but this was not identified during this particular hospitalization). Her cellulitis continued to improve clinically over the following 2 days on oral Bactrim, therefore she certainly appears ready and stable for discharge at this time. We will continue with 5 additional days of Bactrim for total of 7 days oral therapy in addition to 7 days of IV therapy. PHYSICAL EXAMINATION ON DISCHARGE: GENERAL: Awake, alert, oriented x3. She is in no acute distress at this time. CARDIOVASCULAR EXAMINATION: Regular rate and rhythm, with no rubs, gallops, or murmur. RESPIRATORY EXAMINATION: Clear to auscultation bilaterally with no wheezes, rales, or rhonchi. ABDOMINAL EXAMINATION: Soft, she really is not tender, but she does complain of some induration in the left lower quadrant, etiology unclear, but apparently this has been present for many months now. nondistended. Bowel sounds present. EXTREMITIES: No clubbing or edema noted. 2+ pulses in the radial bilaterally. Essentially no visible rash at this time, perhaps a little pinkish hue near the shoulder. DISPOSITION: Home with home services DISCHARGE INSTRUCTIONS: Follow-up with primary care provider within the next 7-10 days. Resume home diet. Activity as tolerated. If symptoms return, or if you experience worsening of your symptoms, please call your doctor or return to the emergency department. Vital Signs/I&Os Vital Signs Date Time Temp Pulse Resp B/P (MAP) Pulse Ox O2 Delivery O2 Flow Rate FiO2 05/03/21 15:15 110/58 (75) 05/03/21 14:00 98.1 70 16 98 Nasal Cannula 2.0 I&O- Last 24 Hours up to 6 AM 05/03/21 06:00 Intake Total 2225 ml Output Total 2500 ml Balance -275 ml Laboratory Data Labs 24H Laboratory Tests 2 05/03/21 06:06: Nucleated Red Blood Cells % (auto) 0.0, Immature Platelet Fraction 8.1 05/03/21 06:07: Anion Gap 3L, Glomerular Filtration Rate > 60.0, Calcium Level 8.3L CBC/BMP Laboratory Tests 05/03/21 06:06 05/03/21 06:07 Microbiology Microbiology 04/25/21 Blood Culture - Final, Complete NO GROWTH AFTER 5 DAYS 04/25/21 Blood Culture - Final, Complete NO GROWTH AFTER 5 DAYS Discharge Medications Scheduled Calcium Carbonate/Vitamin D3 (Calcium 500-Vit D3 200 Tablet) 1 Each Tablet, 2 TAB PO QHS, (Reported) Cyanocobalamin (Vitamin B-12) (Vitamin B-12) 1,000 Mcg Tablet, 1,000 MCG PO DAILY, (Reported) Gabapentin (Gabapentin) 800 Mg Tablet, 800 MG PO BID, (Reported) MORNING AND BEDTIME Gabapentin (Gabapentin) 400 Mg Capsule, 400 MG PO DAILY, (Reported) TAKES AT 1500 Levothyroxine Sodium (Levothyroxine Sodium) 88 Mcg Tablet, 88 MCG PO DAILY, (Reported) Pantoprazole Sodium (Pantoprazole Sodium) 40 Mg Tablet.dr, 40 MG PO BID, (Report ed) Potassium Chloride (Potassium Chloride) 20 Meq Tab.er.prt, 20 MEQ PO QHS, (Reported) Sulfamethoxazole/Trimethoprim (Sulfamethoxazole-Tmp Ds Tablet) 1 Each Tablet, 2 TAB PO BID Tizanidine HCl (Tizanidine HCl) 4 Mg Tablet, 4 MG PO TID, (Reported) Torsemide (Torsemide) 20 Mg Tablet, 20 MG PO DAILY, (Reported) Trazodone HCl (Trazodone HCl) 150 Mg Tablet, 150 MG PO QHS, (Reported) Venlafaxine HCl (Venlafaxine HCl ER) 75 Mg Cap.er.24h, 75 MG PO DAILY, (Reported) Venlafaxine HCl (Venlafaxine HCl ER) 150 Mg Cap.er.24h, 150 MG PO QHS, (Reported) Scheduled PRN Ipratropium/Albuterol Sulfate (Iprat-Albut 0.5-3(2.5) mg/3 ml) 3 Ml Ampul.neb, 3 ML INH Q6H PRN for SHORTNESS OF BREATH, (Reported) Tramadol HCl (Tramadol HCl) 50 Mg Tablet, 100 MG PO Q6H PRN for SEVERE PAIN (PS 8-10), (Reported) Allergies Coded Allergies: naloxone (Verified Allergy, Unknown, sz, 10/01/20) codeine (Verified Adverse Reaction, Intermediate, CHESP PAIN, 10/01/20) ibuprofen (Verified Adverse Reaction, Intermediate, JOINT/ MUSCLE PAIN, 10/01/20) pregabalin (Verified Adverse Reaction, Intermediate, chest pain, 10/01/20) amoxicillin (Verified Adverse Reaction, Mild, vomiting and diarrhea, 10/01/20) clavulanic acid (Verified Adverse Reaction, Mild, vomiting and diarrhea, 10/01/20) erythromycin base (Verified Adverse Reaction, Mild, vomting diarrhea, 10/01/20) hydromorphone (Verified Adverse Reaction, Mild, ITCHING, 10/01/20) CAN TAKE IF BENADRYL GIVEN PRIOR ANIYA VÁZQUEZ DO May 03, 2021 21:10
--- NOTE | 2021-05-04 08:03 | ECGEPIP ---
[facility] [place] Test Date: 2021-05-01 Pat Name: ZAMZAM SCHMITZ Department: Room: [place] [address] Gender: Female Unit Aid: mara : [id number] Requested By: ANIYA VÁZQUEZ Order Number: [id number] Reading MD: Nabeel Ordaz Measurements Intervals Swisher Rate: 61 P: 14 KS: 170 QRS: 9 QRSD: 108 T: 5 QT: 456 QTc: 459 Interpretive Statements Normal sinus rhythm Low voltage QRS Nonspecific T wave abnormality no significant change from 11/19/20 Electronically Signed on 05-04-2021 8:03:25 EDT by Nabeel Ordaz
== END 2021-05-03 16:21 | disposition home health service (06) | DRG 383 ==
LOC: M ED 04:40 → M ED INP 09:30 → ENRESERV 09:58 → M MSPAV 10:52
PROVIDERS: ADMIT Internal Medicine; ATTEND Neuromusculoskeletal Medicine & OMM
PROC: 05HB33Z Insertion of Infusion Device into Right Basilic Vein, Percutaneous Approach (ICD-10-PCS; principal; 2021-04-25)
DX: L03.311 Cellulitis of abdominal wall (principal); J96.11 Chronic respiratory failure with hypoxia; D61.818 Other pancytopenia; I50.32 Chronic diastolic (congestive) heart failure; E88.01 Alpha-1-antitrypsin deficiency; I27.20 Pulmonary hypertension, unspecified; Z68.44 Body mass index [BMI] 60.0-69.9, adult; E66.01 Morbid (severe) obesity due to excess calories; G62.9 Polyneuropathy, unspecified; K74.60 Unspecified cirrhosis of liver; J44.9 Chronic obstructive pulmonary disease, unspecified; L03.114 Cellulitis of left upper limb; D50.9 Iron deficiency anemia, unspecified; K21.9 Gastro-esophageal reflux disease without esophagitis; K59.00 Constipation, unspecified; F32.9 Major depressive disorder, single episode, unspecified; F41.9 Anxiety disorder, unspecified; E03.9 Hypothyroidism, unspecified; Z79.899 Other long term (current) drug therapy; Z88.5 Allergy status to narcotic agent; Z88.8 Allergy status to other drugs, medicaments and biological substances; Z88.6 Allergy status to analgesic agent; Z86.73 Personal history of transient ischemic attack (TIA), and cerebral infarction without residual deficits; M81.0 Age-related osteoporosis without current pathological fracture; G40.909 Epilepsy, unspecified, not intractable, without status epilepticus; L03.313 Cellulitis of chest wall

== ENCOUNTER → 2021-12-14 | Outpatient (CLI) | payer OTHER ==
[~2021-12-14] MED LIST changes: +BACTDSTA PO; +CYAN100050 PO; -LEVO500T3 PO; +LEVO500T4 PO; +POTA-151 PO; +POTA1TAB14 PO; -POTA20TA6 PO; +TIZA10TA PO; +VENL150C43 PO
== END ==
LOC: M WHC 10:36
PROVIDERS: ATTEND Internal Medicine Medical Oncology
DX: Z53.9 Procedure and treatment not carried out, unspecified reason (principal)

== ENCOUNTER → 2022-01-14 | Outpatient (CLI) | payer OTHER ==
[~2022-01-14] MED LIST changes: +LACT20EL PO
== END ==
LOC: M SOG 10:28
PROVIDERS: ATTEND Orthopaedic Surgery
DX: M25.579 Pain in unspecified ankle and joints of unspecified foot (principal)